=== PATIENT | female | born 1970 | race Caucasian/White ===

== ENCOUNTER 2023-04-01 15:58 | Emergency (ER) | payer OTHER, SELFPAY ==
[2023-04-01 15:59] VITALS: BP 143/87; PULSE 98; RESP 18; TEMP 36.1; O2SAT 100; BMI 23.4
--- NOTE | 2023-04-01 16:32 | EDS_ITS ---
HPI History of Present Illness Chief Complaint: Chest Pain Informant: patient Onset/Context/Timing Onset: Today Activity at onset: sudden Quality: Positive for Tightness and - (Squeezing) Current Severity: Mild Maximum Severity: Moderate Narrative Narrative: Patient presents secondary to chest pain. She states about 3 PM she was just finishing her workout when she developed a tight squeezing sensation around her chest and back with pain radiating down both arms. She states she was anxious and breathing rapidly but did not necessarily feel short of breath. Pain has improved but not completely subsided at this time. She did take ibuprofen prior to arrival. She states she was able to get through her workout without any difficulty. [facility] Medical History (Updated 04/01/23 @ 18:[address] Arleen Rodríguez MD) Anxiety Hypertension Hypothyroidism Allergy/AdvReac Type Severity Reaction Status Date / Time No Known Allergies Allergy Verified 04/01/23 16:00 Social History Smoking Status: Never smoker ROS ROS ED Constitutional Constitutional ED: Denies chills or fever(s) Eyes Eyes: Denies change in vision or discharge from eye(s) ENT ENT ED: Denies discharge from eye(s), rhinorrhea or sore throat Cardiovascular Cardiovascular: Reports chest pain; Denies palpitations Respiratory/Chest Respiratory/Chest: Denies cough or dyspnea Gastrointestinal Gastrointestinal: Denies abdominal pain, diarrhea, nausea or vomiting Genitourinary Genitourinary ED: Denies difficulty urinating or dysuria Musculoskeletal Musculoskeletal: Reports back pain and extremity pain Integumentary Denies Abrasions or rash Neurologic Neurologic: Denies headache(s) or weakness Psychiatric Psychiatric: Reports anxiety; Denies depression Allergic/Immunologic Allergic/Immunologic ED: Denies lip swelling or urticaria EXAM Physical Exam Const Vital Signs: 04/01/23 15:59 04/01/23 16:48 04/01/23 16:48 Temperature 97 F L Temperature Source Temporal Pulse Rate 98 82 Respiratory Rate 18 20 H Blood Pressure 143/87 H 123/77 H Blood Pressure Mean 105 92 Pulse Ox 100 96 Oxygen Delivery Method Room Air Room Air Room Air 04/01/23 17:14 Temperature Temperature Source Pulse Rate 81 Respiratory Rate 20 H Blood Pressure 136/75 H Blood Pressure Mean 95 Pulse Ox 96 Oxygen Delivery Method Room Air Positive well nourished and well developed General Appearance ED: well developed HEENT Reports normocephalic and head/scalp atraumatic Eyes PERRL and EOMs intact bilaterally Neck supple Chest Wall inspection of chest normal and palpation of chest normal Resp normal respiratory effort and clear to auscultation bilaterally Cardio regular rate and regular rhythm GI normal to inspection, nondistended, normoactive bowel sounds Palpation: soft Extremity normal to inspection Extremity Narrative: Equal and strong pulses in bilateral wrist and ankles. Neuro oriented x3 and no sensory deficits noted Sensorium / Orientation: alert Motor Exam: strength 5/5 throughout Psych mental status grossly normal Skin no rashes or lesions noted Heart Score History: Slightly/Non-Suspicious ECG: Normal Age: >45 - <65 years Risk Factors: 1 or 2 Risk Factors Troponin: </= Normal Limit Score: 2 MDM MDM MDM Narrative Medical decision making narrative: Patient placed on panel monitor. Aspirin ordered. EKG obtained to evaluate for cardiac arrhythmia/ischemia. Chest x-ray obtained to evaluate for acute lung pathology, cardiac size, or mediastinal abnormality. Labwork obtained to evaluate for leukocytosis, anemia, and electrolyte derangement. History & Record Review Discussion w/independent historian: Patient and Family Additional record(s) reviewed:: Prior labs Lab Data Attestation: I reviewed the patient's lab results. Labs: Laboratory Results - last 24 hr 04/01/23 16:45 WBC 337.3 H* RBC 3.21 L Hgb 10.4 L Hct 30.5 L MCV 95.0 MCH 32.4 H MCHC 34.1 RDW Std Deviation 62.5 H RDW Coeff of Yanira 18.3 H Plt Count 130 L MPV 11.5 Neut % (Auto) Not Reportable Absolute Neuts (auto) 182.1 H Absolute Lymphs (auto) 10.12 H Total Counted 100 Neutrophils % (Manual) 31 L Band Neutrophils % 23 H Lymphocytes % (Manual) 3 L Monocytes % (Manual) 4 Metamyelocytes % 7 H Myelocytes % 3 H Promyelocytes % 29 H Diff Path Review May foll D-Dimer Quant (PE/DVT) 0.56 H* Sodium 137 Potassium 3.8 Chloride 104 Carbon Dioxide 27.0 Anion Gap 6 BUN 16 Creatinine 1.13 H Estim Creat Clear Calc 53.00 Est GFR (MDRD) Af Amer 65 Est GFR (MDRD) Non-Af 54 L BUN/Creatinine Ratio 14.2 Glucose 133 H Calcium 9.2 Troponin I High Sens 7 Radiography Chest X-Ray - ED: 1 View, Read by ED Physician, Normal, Heart, Lungs and Mediastinum Diagnostic Testing: Clinical Impression(s) from Imaging Studies Chest X-Ray 04/01/23 16:45 IMPRESSION: No definite acute or significant abnormality seen. Electronically Signed: Dharmesh Higginbotham MD at 17:08 EDT , Chest CTA 04/01/23 17:16 IMPRESSION: Normal CTA chest examination, without a demonstrated pulmonary embolism or arterial dissection. There are findings consistent with COPD. There is no evidence of acute chest disease. Electronically Signed: Dharmesh Higginbotham MD at 18:17 EDT , EKG Initial EKG: Attestation: I personally reviewed and interpreted this EKG as follows: Interpretation: Sinus Rhythm (Sinus at 91 with no acute ischemia.) Treatment and Re-Evaluation :: EKG is sinus rhythm with no acute ischemia. Portable chest x-ray per my interpretation is unremarkable. CBC reveals abnormal white count at 337,000. She has absolute neutrophils of 182,000 and absolute lymphocytes of 10,000. Chemistry studies are unremarkable. Troponin is normal at 7 and D-dimer is slightly elevated at 0.56. Patient was sent for a CTA of the chest. This reveals no acute abnormalities and no evidence of pulmonary embolism. I did state down and speak with the patient as well as family at bedside. I honestly have concern the patient may have undiagnosed leukemia given her significantly elevated white count. Patient prefer to follow-up with [facility] as her primary care physician is through that system. I spoke with Dr. Valdez. His office will call the patient tomorrow for follow-up. Discharge Plan Triage Chief Complaint: Chest Pain ED Provider: Arleen Rodríguez Dx/Rx/DC Orders Clinical Impression: Leukocytosis, unspecified, Chest pain Instructions: What Is Leukemia?, ED Chest Pain, Uncertain Cause Primary Care Provider: Edith Mcdonnell Referrals: Prince Valdez MD [Med Staff - Active Staff] - As soon as possible Edith Mcdonnell MD [[facility]] - Activity Restrictions/Additional Instructions: As discussed, your white blood cell count (leukocytes) is extremely elevated and concerning for leukemia. I spoke with Dr. Valdez. His office will call you tomorrow morning for close follow-up. If you do not hear from their office his information has been included for you. You will need further testing before definitive diagnosis and treatment plan can be made. Disposition Disposition: Home, Self Care
--- NOTE | 2023-04-01 16:45 | RAD_ITS ---
STUDY: X-RAY CHEST REASON FOR EXAM: Female, 53 years old. chest pain TECHNIQUE: Single AP portable view of the chest. COMPARISON: None. FINDINGS: The lungs are clear and expanded. There is no demonstrated pleural abnormality. Normal size heart. Normal mediastinum and mony. Normal visualized pulmonary arteries. Normal visualized aortic arch and descending thoracic aorta. There are diffuse degenerative changes of the visualized thoracic spine. Normal visualized ribs, clavicles, and shoulders. There is no demonstrated abnormality of the visualized soft tissue structures of the upper abdomen. RAD/Chest 1 View (Portable) IMPRESSION: No definite acute or significant abnormality seen. Electronically Signed: Dharmesh Higginbotham MD at 17:08 EDT ,
[2023-04-01 16:48] VITALS: BP 123/77; PULSE 82; RESP 20; O2SAT 96
[2023-04-01] MEDS: 0.9% Normal Saline 1,000 ML 150 ML IV (16:58)
[2023-04-01] MEDS: Aspirin 81 MG TAB.CHEW 324 MG PO (16:59)
[2023-04-01 17:01] LABS: Hematocrit 30.5 % (37-47); Hemoglobin 10.4 g/dL (12.0-15.0); Mean Corp Hgb Conc 34.1 g/dL (32-36); Mean Corpuscular Hgb 32.4 pg (27.0-32.0); Mean Platelet Vol. 11.5 fl (6.2-12.0); POSITIVE COUNT YES; POSITIVE DIFFERENTIAL YES; POSITIVE MORPHOLOGY YES; Platelet Count 130 K/mm3 (150-450); RBC Distribution Width CV 18.3 % (11.6-14.6); RBC Distribution Width SD 62.5 fl (35.1-43.9); Red Blood Count 3.21 M/mm3 (4.2-5.4)
[2023-04-01 17:12] LABS: Anion Gap 6 (5-15); BUN 16 mg/dL (7-18); BUN/Creat Ratio 14.2 RATIO (10-20); Calcium,Total 9.2 mg/dL (8.5-10.1); Chloride 104 mmol/L (98-107); Creatinine, Serum 1.13 mg/dL (0.55-1.02); EST Glomerular Filtration Rate 54 mL/min (>60); Est Glom Filt Rate - Afr Amer 65 mL/min (>60); Glucose 133 mg/dL (74-106); Potassium 3.8 mmol/L (3.5-5.1); Sodium Level 137 mmol/L (136-145); Troponin-I HS (w/2H Reflex) 7 pg/mL (3.0-54.0)
[2023-04-01 17:13] LABS: D-Dimer Quantitative (DVT/PE) 0.56 FEU/ug/m (0.27-0.49)
[2023-04-01 17:14] VITALS: BP 136/75; PULSE 81; RESP 20; O2SAT 96
[2023-04-01 17:14] LABS: Differential Indicated MANUAL DIFF; White Blood Count 337.3 K/mm3 (4.4-11.0)
--- NOTE | 2023-04-01 17:16 | CT_ITS ---
STUDY: CTA CHEST REASON FOR EXAM: Female, 53 years old. CP, elevated d-dimer RADIATION DOSAGE (If Supplied By Facility): CTDIvol = ( 9.32 ) mGy, DLP = ( 298.04 ) mGycm TECHNIQUE: The examination was performed with the intravenous administration of IV 75mL [id number]-370. Post-processing of the angiographic images was performed, with multiplanar reformation and 3D reconstruction. Individualized dose optimization techniques were used for this CT. COMPARISON: None. FINDINGS: Normal enhancement of the main pulmonary artery and right and left pulmonary arteries. Normal enhancement of the bilateral peripheral pulmonary arteries. There is no demonstrated pulmonary embolism. Normal thoracic aorta and visualized great vessels. There is no demonstrated aortic dissection. Normal heart and pericardium. Normal mediastinum. Normal hilar regions. Normal visualized trachea and bronchi. The lungs are hyper expanded, with flattening of the hemidiaphragms. Normal pulmonary parenchyma. Normal pleura. Normal chest wall structures. Normal osseous structures. Normal visualized upper abdomen. CT/CTA Chest W/WO Contrast IMPRESSION: Normal CTA chest examination, without a demonstrated pulmonary embolism or arterial dissection. There are findings consistent with COPD. There is no evidence of acute chest disease. Electronically Signed: Dharmesh Higginbotham MD at 18:17 EDT ,
[2023-04-01 18:13] LABS: Lymphocyte 3 % (19-41); Metamyelocyte 7 % (0-1); Monocyte 4 % (0-10); Myelocyte 3 % (0-0); Neutrophil-Band 23 % (0-5); Neutrophil-Segmented 31 % (47-70); Promyelocyte 29 % (0-0); Total Cells Counted 100 (MANUAL DIFF)
[2023-04-01 18:15] LABS: Absolute Lymphocyte Count 10.12 X10^3/uL (0.83-4.51); Absolute Neutrophil Count 182.1 X10^3/uL (2.0-7.7)
[2023-04-01 18:50] LABS: Reflex Troponin-HS? (from REC) Y
[2023-04-01 19:04] VITALS: BP 139/87; PULSE 67; RESP 14; O2SAT 98
[2023-04-02 15:23] LABS: Pathologist Review Reviewed
== END 2023-04-01 19:05 | disposition home or self-care (01) ==
PROVIDERS: Emergency Provider Emergency Medicine; PCP Internal Medicine; Visit Provider Emergency Medicine
DX: R07.9 Chest pain, unspecified (principal); D72.829 Elevated white blood cell count, unspecified; I10 Essential (primary) hypertension
CPT/HCPCS: 71045; 71275; 80048; 84484; 85025; 85379; 93005; 96360; 96361; 99283; Q9967; A4216

== ENCOUNTER 2024-08-26 02:53 | Emergency (ER) | payer OTHER, SELFPAY ==
[2024-08-26 02:54] VITALS: BP 144/95; PULSE 68; RESP 18; TEMP 36.7; O2SAT 100; BMI 29.0
--- NOTE | 2024-08-26 03:09 | CT_ITS ---
INDICATION: Pain woke up at 2am with left sided arm pain and tingling in wrist and fingers, hx CML and on oral chemo EXAMINATION: CT CERVICAL SPINE - CT Spine Cervical W/O Contrast Injection TECHNIQUE: Helically acquired images were obtained of the cervical spine. 2D reformatted images were reviewed. The protocol utilizes one or more of the following dose reduction techniques: automated exposure control, adjustment of mA and/or kV according to patient size,and/or use of iterative reconstruction technique. IV Contrast dosage and agent: None. RADIATION DOSAGE (If Supplied By Facility): CTDIvol = ( 21.88 ) mGy, DLP = ( 430.32 ) mGycm COMPARISON: No relevant prior comparison study available FINDINGS: ALIGNMENT: No subluxation. Straightening of the normal curvature. MINERALIZATION: Normal. VERTEBRAL BODIES: No fracture or acute abnormality. DISC SPACES: Disc space narrowing with osteophytes most pronounced at C3-4, and C5-C7. C6-7: Broad-based disc/osteophyte complex. Mild encroachment on the left neural foramen. POSTERIOR ELEMENTS: Mild facet arthropathy at multiple levels. SPINAL CANAL: Maintained. PARASPINAL SOFT TISSUES: Unremarkable. OTHER: None. CT/Spine Cervical without Contras IMPRESSION: No evidence of fracture or subluxation. Straightening of the normal curve may be due to positioning or muscle spasm. Degenerative changes with mild left neural foraminal encroachment at C6-7. MRI may be helpful for further evaluation. Electronically Signed: Erika Lemus MD at 4:17 EST ,
--- NOTE | 2024-08-26 03:11 | EX.ED.DYSGE1 ---
HPI History of Present Illness Chief Complaint: Other, Pain/Inj Narrative Narrative: 54-year-old female presents with her because of left arm pain that she has had since yesterday morning at around 5 AM. She describes soreness throughout the day. She is right-hand dominant. No fevers or chills. She states that she went to bed last evening, and awoke this morning around 2 AM, approximately an hour ago with pain in her left shoulder. It goes down her left arm. She states its pain in her left side. She is not sure if her leg feels weak as well. She has past medical history of CML. She takes oral chemotherapy. She states that the pain radiates from her neck down her left arm and into her fingers. She cannot really describe the feeling but states that its uncomfortable. [facility] Medical History CML (chronic myelocytic leukemia) Anxiety Hypothyroidism Hypertension Home Medications ?Medication ?Instructions ?Recorded ?Last Taken ?Type amlodipine 2.5 mg tablet 2.5 mg PO DAILY 08/26/24 Unknown History azelaic acid 15 % topical gel 1 applic topical BID PRN rosacia 08/26/24 Unknown History bupropion HCl 300 mg 24 hr tablet, 300 mg PO DAILY 08/26/24 Unknown History extended release cholecalciferol (vitamin D3) 50 50 mcg PO DAILY 08/26/24 Unknown History mcg (2,000 unit) capsule (Vitamin D3) dasatinib 100 mg tablet 100 mg PO DAILY 08/26/24 Unknown History levothyroxine 100 mcg tablet 100 mcg PO DAILY 08/26/24 Unknown History (Synthroid) lisinopril 20 1 tab PO DAILY 08/26/24 Unknown History mg-hydrochlorothiazide 12.5 mg tablet Allergy/AdvReac Type Severity Reaction Status Date / Time No Known Allergies Allergy Verified 08/26/24 02:54 Surgical History Hx of section Hx of hernia repair Hx of cholecystectomy Social History Smoking Status: Never smoker ROS ROS ED ROS Narrative Constitutional: No fever, no chills. HEENT: Mild neck pain. Pain radiating into left shoulder. Cardiovascular: No chest pain. No palpitations. No pedal edema. Respiratory: No cough, no shortness of breath. Abdominal: No abdominal pain. No nausea. No vomiting. Genitourinary: No dysuria. No hematuria. Musculoskeletal: Left arm pain. Neurologic: No headaches. No dizziness. No lightheadedness. Paresthesias of left arm. EXAM Physical Exam Narrative Exam Narrative: Afebrile. Vital signs noted. HEENT: Normocephalic. Atraumatic. PERRL, EOMI. Neck soft and supple. No point tenderness or step off. No trapezial pain. Cardiovascular: Regular rate and rhythm. No murmurs, rubs, or gallops appreciated. Respiratory: No tachypnea. Lungs clear to auscultation bilaterally. Gastrointestinal: Abdomen soft, nontender, with normoactive bowel sounds. No rebound or guarding. Neurological: Awake. Alert. Nonfocal, nonlateralizing. Able to raise arms above head without difficulty. Difficult to elicit bilateral patellar reflexes. Skin: No rash. Normal color. No pallor. Musculoskeletal: No pedal edema. Full range of motion extremities. Palpable radial pulse, left. Able to raise bilateral legs off bed. No crepitance of shoulder or arm, or chest wall. No appreciable weakness bilateral lower extremities. Const Vital Signs: 08/26/24 02:54 08/26/24 03:00 08/26/24 04:26 Temperature 98.0 F 98.0 F Temperature Source Oral Pulse Rate 68 64 Respiratory Rate 18 18 Respiratory Effort Normal Non-Labored Respiratory Pattern Normal Blood Pressure 144/95 H 120/75 Blood Pressure Mean 111 90 Pulse Ox 100 97 Oxygen Delivery Method Room Air MDM MDM MDM Narrative Medical decision making narrative: Differential diagnosis includes but not limited to cervical radiculopathy versus musculoskeletal pain versus ACS versus stroke. I have very low suspicion for stroke because her neurological examination is nonfocal and nonlateralizing and essentially her stroke scale is 0. I favor cervical radiculopathy. She was given morphine and Toradol for pain as she took Tylenol without relief. EKG was obtained and interpreted by myself independently as normal sinus rhythm at 69 bpm without ectopy or acute ST changes. No STEMI. I reviewed her laboratory work and she has normal white count of 10.2, hemoglobin normal 12.6, platelet count low at 98. When compared to prior laboratories, she has chronic thrombocytopenia. I do feel that this is related to her chemotherapy as well, but I do not feel that she requires platelet transfusion. Review of her electrolyte panel shows BUN of 19 and creatinine 0.74 with glucose 98 and normal anion gap of 6. LFTs are grossly unremarkable. High-sensitivity troponin is 8. She has been having discomfort all day yesterday so I feel this is a 6-hour troponin that she does not require serial enzymes. Chest x-ray 1 view interpreted by myself independently shows no evidence of an acute process. I reviewed the radiology report which confirms my independent interpretation. I had ordered Toradol and morphine for her but per RN, she declined the morphine. Repeat examination at approximately 3:55 AM she was resting comfortably and she states that her arm pain is improving. I reviewed the radiology report of the CT of the cervical spine. There is straightening of the cervical spine consistent with muscle spasm. Additionally, there are degenerative changes noted with left foraminal encroachment at C6-C7. There is no evidence of acute fracture or subluxation. I do think that she probably does have more of a cervical radicular pain. At this point in time, her does state that he is familiar with radicular pain and has he had it himself. I feel she can be discharged to follow-up with her primary care provider. She was told she may need outpatient imaging such as MRI. Additionally, I offered to write her for narcotic pain medication but she declined. She states she will take [id number] medications as needed. Return instructions were reviewed. Disposition is discharged home in stable condition. History & Record Review Discussion w/independent historian: Patient Additional record(s) reviewed:: Prior labs Lab Data Attestation: I reviewed the patient's lab results. Labs: Laboratory Results - last 24 hr 08/26/24 03:16 WBC 10.2 RBC 3.83 L Hgb 12.6 Hct 36.5 L MCV 95.3 MCH 32.9 H MCHC 34.5 RDW Std Deviation 47.0 H RDW Coeff of Yanira 13.5 Plt Count 98 L MPV 10.1 Immature Gran % (Auto) 0.300 Neut % (Auto) 55.9 Lymph % (Auto) 31.2 [place] % (Auto) 8.6 Eos % (Auto) 3.1 Baso % (Auto) 0.9 Absolute Neuts (auto) 5.7 Absolute Lymphs (auto) 3.19 Nucleated RBC % 0 Differential Comment SCANNED Platelet Estimate SLT DEC Plt Morphology Comment LARGE Sodium 137 Potassium 3.7 Chloride 107 Carbon Dioxide 24.0 Anion Gap 6 BUN 19 H Creatinine 0.74 Estim Creat Clear Calc 92.38 Est GFR (MDRD) Af Amer 106 Est GFR (MDRD) Non-Af 88 BUN/Creatinine Ratio 25.7 H Glucose 98 Calcium 8.7 Total Bilirubin 0.30 AST 18 ALT 27 Alkaline Phosphatase 54 Troponin I High Sens 8 Total Protein 6.3 L Albumin 3.6 Globulin 2.7 Albumin/Globulin Ratio 1.3 Radiography Diagnostic Testing: Clinical Impression(s) from Imaging Studies Cervical Spine CT 08/26/24 03:09 IMPRESSION: No evidence of fracture or subluxation. Straightening of the normal curve may be due to positioning or muscle spasm. Degenerative changes with mild left neural foraminal encroachment at C6-7. MRI may be helpful for further evaluation. Electronically Signed: Erika Lemus MD at 4:17 EST Reading Location ID and State: [facility] / [place] Tel , Service support , Chest X-Ray 08/26/24 03:30 IMPRESSION: No evidence of active intrathoracic disease. Electronically Signed: Erika Lemus MD at 4:09 EST , Discharge Plan Triage Chief Complaint: Other, Pain/Inj ED Provider: Steve Welch Dx/Rx/DC Orders Clinical Impression: Left arm pain, Cervical radicular pain Instructions: ED Myalgias, ED Pain, Acute, Uncertain Cause, ED Radiculopathy, Cervical Prescriptions: No Action dasatinib 100 mg tablet 100 mg PO DAILY azelaic acid 15 % gel 1 applic topical BID PRN (Reason: rosacia) bupropion HCl 300 mg tablet extended release 24 hr 300 mg PO DAILY lisinopril-hydrochlorothiazide 20-12.5 mg tablet 1 tab PO DAILY amlodipine 2.5 mg tablet 2.5 mg PO DAILY levothyroxine [Synthroid] 100 mcg tablet 100 mcg PO DAILY cholecalciferol (vitamin D3) [Vitamin D3] 50 mcg (2,000 unit) capsule 50 mcg PO DAILY Primary Care Provider: Edith Mcdonnell Referrals: Edith Mcdonnell MD [Primary Care Provider] - 3-5 Days if not improving Activity Restrictions/Additional Instructions: Follow-up with your primary care provider. You may need outpatient imaging and/or physical therapy. Return with new or worsening symptoms. Take [id number] medication such as Tylenol and/or ibuprofen as directed. Print Language: Welsh Disposition Disposition: Home, Self Care Discharge Date/Time: 08/26/24 04:30
[2024-08-26] MEDS: Ketorolac 15 MG/ML Vial IV (03:19)
[2024-08-26 03:24] LABS: Absolute Lymphocyte Count 3.19 X10^3/uL (0.83-4.51); Absolute Neutrophil Count 5.7 X10^3/uL (2.0-7.7); Basophil# 0.09 X10^3/uL; Basophil% 0.9 % (0-1); Eosinophil# 0.32 X10^3/uL; Eosinophils% 3.1 % (0-5); Hematocrit 36.5 % (37-47); Hemoglobin 12.6 g/dL (12.0-15.0); Lymphocyte # 3.19 X10^3/ul (0.83-4.51); Lymphocyte % 31.2 % (19-41); Mean Corp Hgb Conc 34.5 g/dL (32-36); Mean Corpuscular Hgb 32.9 pg (27.0-32.0); Mean Corpuscular Volume 95.3 fL (81-99); Mean Platelet Vol. 10.1 fl (6.2-12.0); Monocyte# 0.88 X10^3/uL; Monocyte% 8.6 % (0-10); NRBC Flagged by Analyzer 0 % (0-5); Neutrophil # 5.71 X10^3/uL (2.7-7.7); Neutrophil % 55.9 % (47-70); POSITIVE COUNT YES; Platelet Count 98 K/mm3 (150-450); RBC Distribution Width CV 13.5 % (11.6-14.6); Red Blood Count 3.83 M/mm3 (4.2-5.4); White Blood Count 10.2 K/mm3 (4.4-11.0)
[2024-08-26 03:25] LABS: Differential Indicated SCAN CRITERIA MET
--- NOTE | 2024-08-26 03:30 | RAD_ITS ---
INDICATION: Pain left side shoulder and chest pain EXAMINATION/TECHNIQUE: X-RAY - XR Chest 1 View AP portable. 3:28 AM COMPARISON: Prior study dated: 04/01/2023 FINDINGS: LINES/DEVICES: None. LUNGS: No consolidation. No pneumothorax. MEDIASTINUM: Unremarkable. CARDIAC SILHOUETTE: Not enlarged. BONES AND SOFT TISSUES: No acute abnormalities. RAD/Chest 1 View (Portable) IMPRESSION: No evidence of active intrathoracic disease. Electronically Signed: Erika Lemus MD at 4:09 EST ,
[2024-08-26 03:45] LABS: ALB/GLOB Ratio 1.3 RATIO (0.9-2.4); AST(SGOT) 18 U/L (15-37); Alanine Aminotransfer ALT/SGPT 27 U/L (13-56); Albumin, Serum 3.6 g/dL (3.2-5.0); Alkaline Phosphatase 54 U/L (45-117); Anion Gap 6 (5-15); BUN 19 mg/dL (7-18); BUN/Creat Ratio 25.7 RATIO (10-20); Calcium,Total 8.7 mg/dL (8.5-10.1); Chloride 107 mmol/L (98-107); Creatinine, Serum 0.74 mg/dL (0.55-1.02); EST Glomerular Filtration Rate 88 mL/min (>60); Est Glom Filt Rate - Afr Amer 106 mL/min (>60); Estimated Creatinine Clearance 92.38 ml/min; Globulin 2.7 g/dL (2.2-4.2); Glucose 98 mg/dL (74-106); Potassium 3.7 mmol/L (3.5-5.1); Protein, Total 6.3 g/dL (6.4-8.2); Sodium Level 137 mmol/L (136-145); Troponin-I HS 8 pg/mL (3.0-54.0)
[2024-08-26 04:24] LABS: Differential Comment SCANNED; Platelet Estimate SLT DEC (ADEQ)
[2024-08-26 04:25] LABS: Platelet Morphology LARGE
[2024-08-26 04:26] VITALS: BP 120/75; PULSE 64; RESP 18; TEMP 36.7; O2SAT 97
== END 2024-08-26 04:30 | disposition home or self-care (01) ==
PROVIDERS: Emergency Provider Emergency Medicine; PCP Internal Medicine; Visit Provider Emergency Medicine
DX: M54.12 Radiculopathy, cervical region (principal); C92.10 Chronic myeloid leukemia, BCR/ABL-positive, not having achieved remission; I10 Essential (primary) hypertension; Z79.899 Other long term (current) drug therapy

== ENCOUNTER 2025-01-22 03:29 | Inpatient (IN) | payer OTHER, SELFPAY ==
[2025-01-22] VITALS (22 sets, daily range): BP systolic 100–144; BP diastolic 45–83; PULSE 60–104; RESP 11–22; TEMP 35.8–36.6; O2SAT 95–100; BMI 29.9; BMI 29.2
--- NOTE | 2025-01-22 03:34 | EX.ED.DYSGE1 ---
HPI History of Present Illness Chief Complaint: Allergic Reaction Informant: patient and spouse/S.O. Narrative Narrative: 54-year-old female presents with tongue swelling that started may be 7-10 hours ago but was mild, she was eating an orange at the time when she first noticed something and thought maybe she had bit her tongue in the acid from the orange was irritating it but as her tongue started to swell more, she started having some submental/throat swelling as well, no pain, no odynophagia, no voice changes. She takes lisinopril and has been on it for several years for blood pressure. She states she just got it refilled, and today just prior to all of this starting she took the first pill from the new refills she is not sure if it is a different looking pill or not, but she usually takes that around 5 PM every day and after taking that is when all of this started. The only other medication change she has had lately is her Dasatinib from 100 mg daily to 140 mg daily for her CML. PFSH [facility] Medical History Thrombocytopenia CML (chronic myelocytic leukemia) Anxiety Hypothyroidism Hypertension Home Medications ?Medication ?Instructions ?Recorded ?Last Taken ?Type amlodipine 2.5 mg tablet 2.5 mg PO DAILY 08/26/24 Unknown History azelaic acid 15 % topical gel 1 applic topical BID PRN rosacia 08/26/24 Unknown History bupropion HCl 300 mg 24 hr tablet, 300 mg PO DAILY 08/26/24 Unknown History extended release cholecalciferol (vitamin D3) 50 50 mcg PO DAILY 08/26/24 Unknown History mcg (2,000 unit) capsule (Vitamin D3) levothyroxine 100 mcg tablet 100 mcg PO DAILY 08/26/24 Unknown History (Synthroid) lisinopril 20 1 tab PO DAILY 08/26/24 Unknown History mg-hydrochlorothiazide 12.5 mg tablet dasatinib 140 mg tablet 140 mg PO DAILY 01/22/25 Unknown History Allergy/AdvReac Type Severity Reaction Status Date / Time lisinopril Allergy Severe Angioedema Verified 01/22/25 05:19 Surgical History Hx of section Hx of hernia repair Hx of cholecystectomy Social History (Updated 01/22/25 @ 05:[address] Jillian Shafer DO) household members: spouse housing: house current occupational status: employed Smoking Status: Never smoker substance use type: does not use ROS ROS ED Constitutional Constitutional ED: Denies chills or fever(s) Eyes Eyes: Denies change in vision or diplopia ENT ENT ED: Reports throat swelling and tongue swelling; Denies hoarseness, rhinorrhea or sore throat Cardiovascular Cardiovascular: Denies chest pain or palpitations Respiratory/Chest Respiratory/Chest: Denies cough or dyspnea Gastrointestinal Gastrointestinal: Denies abdominal pain, diarrhea, nausea or vomiting Genitourinary Genitourinary ED: Denies dysuria or hematuria Musculoskeletal Musculoskeletal: Denies back pain or neck pain Integumentary Denies abscess or rash Neurologic Neurologic: Denies headache(s), paresthesias or weakness Psychiatric Psychiatric: Reports anxiety; Denies suicidal thoughts EXAM Physical Exam Const Vital Signs: 01/22/25 03:30 01/22/25 04:32 Temperature 97.9 F Temperature Source Oral Pulse Rate 70 63 Respiratory Rate 12 11 L Blood Pressure 144/83 H 115/63 Blood Pressure Mean 103 80 Pulse Ox 100 97 Oxygen Delivery Method Room Air Positive well nourished and well developed General Appearance ED: well developed and NAD HEENT Reports moist mucous membranes HEENT Narrative: Mild diffuse tongue edema. Mild sublingual edema without significant tongue elevation without the patient lifting it. No significant external submental edema. No stridor. No hot potato voice. Able to lie back without breathing difficulty or stridor. normocephalic and atraumatic Eyes PERRL and EOMs intact bilaterally Neck full ROM and supple Resp normal respiratory effort and clear to auscultation bilaterally Cardio regular rate, regular rhythm and no murmurs GI non-tender and non-distended Auscultation: normoactive bowel sounds Palpation: soft Back/Spine no CVA tenderness General Back: other FROM Extremity normal to inspection General Extremety ED: Negative for edema, pulses abnormal or tenderness General Extremity: Negative for edema or pulses abnormal Neuro oriented x3, CN's II-XII intact bilaterally and no sensory deficits noted Sensorium / Orientation: awake and alert Motor Exam: strength 5/5 throughout Skin no rashes or lesions noted and no wounds MDM MDM MDM Narrative Medical decision making narrative: Patient was given IV Pepcid, Solu-Medrol, diphenhydramine, and IM epinephrine 0.3 mg. She tolerated all of this well with no adverse events. On reexamination, her tongue is similarly edematous as is the sublingual tissues but she is tolerating it well right now, I do not think she needs intubated, but given the involvement of the sublingual tissues and submental symptoms, I recommend admission for observation. I think this is her SRAVANI inhibitor until proven otherwise. Lab Data Attestation: I reviewed the patient's lab results. Labs: Laboratory Results - last 24 hr 01/22/25 03:37 WBC 11.2 H RBC 4.24 Hgb 14.0 Hct 40.0 MCV 94.3 MCH 33.0 H MCHC 35.0 RDW Std Deviation 45.6 H RDW Coeff of Yanira 13.4 Plt Count 98 L MPV 9.7 Immature Gran % (Auto) 0.400 Neut % (Auto) 52.6 Lymph % (Auto) 32.4 [place] % (Auto) 10.6 H Eos % (Auto) 2.8 Baso % (Auto) 1.2 H Absolute Neuts (auto) 5.9 Absolute Lymphs (auto) 3.62 Nucleated RBC % 0 Sodium 138 Potassium 3.8 Chloride 101 Carbon Dioxide 25.1 Anion Gap 12 BUN 21 H Creatinine 0.93 Estim Creat Clear Calc 74.62 Est GFR (MDRD) Non-Af 74 BUN/Creatinine Ratio 22.5 H Glucose 90 Calcium 9.8 Management Discussion w/another healthcare provider: Hospitalist Critical Care Time Critical Care Time: Yes Critical care time (excluding procedures): 30-74 minutes (36 min), Including time spent:, Discussing w/Patient &/or Family/Parts Identification Technician, Discussing w/Consultants, Arranging Admission or Transfer and Performing Direct Patient Care at Bedside Discharge Plan Dx/Rx/DC Orders Clinical Impression: Angioedema Disposition Disposition: Acute Care [facility]
[2025-01-22] MEDS: DiphenhydrAMINE 50 MG/ML Syringe 25 MG IV ×5 (03:40→22:25)
[2025-01-22] MEDS: MethylPREDNISolone 125 MG/2 ML Vial IV (03:42)
[2025-01-22] MEDS: Epi Pen (EQUIV) 0.3 MG Syringe IM (03:44)
[2025-01-22 03:47] LABS: Absolute Lymphocyte Count 3.62 X10^3/uL (0.83-4.51); Absolute Neutrophil Count 5.9 X10^3/uL (2.0-7.7); Basophil# 0.13 X10^3/uL; Basophil% 1.2 % (0-1); Eosinophil# 0.31 X10^3/uL; Eosinophils% 2.8 % (0-5); Lymphocyte # 3.62 X10^3/ul (0.83-4.51); Lymphocyte % 32.4 % (19-41); Mean Corpuscular Volume 94.3 fL (81-99); Mean Platelet Vol. 9.7 fl (6.2-12.0); Monocyte# 1.19 X10^3/uL; Monocyte% 10.6 % (0-10); NRBC Flagged by Analyzer 0 % (0-5); Neutrophil # 5.89 X10^3/uL (2.7-7.7); Neutrophil % 52.6 % (47-70); POSITIVE COUNT YES; Platelet Count 98 K/mm3 (150-450); RBC Distribution Width CV 13.4 % (11.6-14.6); RBC Distribution Width SD 45.6 fl (35.1-43.9); Red Blood Count 4.24 M/mm3 (4.2-5.4); White Blood Count 11.2 K/mm3 (4.4-11.0)
--- OUTSIDE RECORDS SUMMARY | 2025-01-22 03:56 | XMS RPT_ITS | CCD ---
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, Judith Unavailable Sandro Brower PA-Cadette Unavailable Steve Welch Attending Unavailable Ganta, Eden Primary Care Unavailable Deborah PALMA Marisela L Unavailable [phone] Leonarda PALMA Dora Unavailable GANTA, EDEN Primary Care Unavailable PRINCE URIBE Attending Unavailable GANTA, EDEN Primary Care Unavailable GANTA, EDEN Referring Unavailable GANTA, EDEN Attending Unavailable GANTA, EDEN Primary Care Unavailable PRINCE URIBE Referring Unavailable GANTA, EDEN Primary Care Unavailable MARGA CROWE Referring Unavailable GANTA, EDEN Primary Care Unavailable GANTA, EDEN Referring Unavailable GANTA, EDEN Primary Care Unavailable GANTA, EDEN Referring Unavailable GANTA, EDEN Primary Care Unavailable PRINCE URIBE Referring Unavailable GANTA, EDEN Primary Care Unavailable GANTA, EDEN Referring Unavailable NEGRO DAWSON Attending Unavailable GANTA, EDEN Primary Care Unavailable GANTA, EDEN Referring Unavailable NEGRO DAWSON Attending Unavailable GANTA, EDEN Primary Care Unavailable JUDITH HOWELL Referring Unavailable GANTA, EDEN Primary Care Unavailable ABRAMOVICH, PRINCE Referring Unavailable ABRAMOVICH, PRINCE Attending Unavailable GANTA, EDEN Primary Care Unavailable MARGA CROWE Referring Unavailable MARGA CROWE Attending Unavailable GANTA, EDEN Primary Care Unavailable ABRAMOVICH, PRINCE Referring Unavailable GANTA, EDEN Primary Care Unavailable ABRAMOVICH, PRINCE Attending Unavailable GANTA, EDEN Primary Care Unavailable GANTA, EDEN Primary Care Unavailable ABRAMOVICH, PRINCE Referring Unavailable GANTA, EDEN Primary Care Unavailable ABRAMOVICH, PRINCE Attending Unavailable GANTA, EDEN Primary Care Unavailable JUDITH HOWELL Attending Unavailable GANTA, EDEN Primary Care Unavailable GANTA, EDEN Referring Unavailable MARGA CROWE Attending Unavailable GANTA, EDEN Primary Care Unavailable GANTA, EDEN Primary Care Unavailable ABRAMOVICH, PRINCE Referring Unavailable GANTA, EDEN Primary Care Unavailable GANTA, EDEN Attending Unavailable GANTA, EDEN Primary Care Unavailable GANTA, EDEN Referring Unavailable GANTA, EDEN Primary Care Unavailable ABRAMOVICH, PRINCE Referring Unavailable GANTA, EDEN Primary Care Unavailable ABRAMOVICH, PRINCE Referring Unavailable GANTA, EDEN Primary Care Unavailable ABRAMOVICH, PRINCE Referring Unavailable Medications Current Medications Medication Drug Class(es) Dates Sig (Normalized) Sig (Original) acetaminophen 500 mg oral tablet (20 sources) take 2 tablets by mouth every eight hours as needed acetaminophen (TYLENOL EXTRA STRENGTH) 500 mg tablet Take 1,000 mg by mouth every 8 hours as needed. Active Comment on above: Take 1,000 mg by carter th every 8 hours as needed. allopurinol 100 mg oral tablet (7 sources) Xanthine Oxidase Inhibitor Start: 04-07-2023 End: 04-17-2023 take 1 tablet by mouth once daily allopurinol (ZYLOPRIM) 100 mg tablet Take 1 tablet by mouth once daily for 10 days. Start with first dose of dasatinib 10 tablet 0 04/07/2023 04/17/2023 Active Comment on above: Take 1 tablet by carter th once daily for 10 days. Start with first dose of dasatinib amLODIPine 2.5 mg oral tablet (20 sources) Dihydropyridine Calcium Channel Cornel Start: 09-18-2023 End: 09-27-2024 take 1 tablet by mouth once daily amLODIPine (NORVASC) 2.5 mg tablet Take 1 tablet by mouth once daily. 90 tablet 3 09/27/2024 Active Start: 12-09-2021 End: 06-17-2024 take 1 tablet by mouth in the morning amLODIPine (Norvasc) 5 MG tablet Take 5 mg by mouth in the morning. 09/10/2022 06/17/2024 Discontinued (Therapy completed) Start: 12-05-2021 End: 12-05-2021 take 1 tablet by mouth once daily amLODIPine (NORVASC) 5 mg tablet TAKE 1 TABLET BY MOUTH EVERY DAY 90 tablet 0 12/05/2021 12/05/2021 Discontinued Start: 09-04-2021 take 1 tablet by carter th once daily amLODIPine (NORVASC) 5 mg tablet Take 1 tablet by mouth once daily. 90 tablet 0 09/04/2021 Active Comment on above: Take 1 tablet by carter th once daily. TAKE 1 TABLET BY CARTER TH EVERY DAY azelaic acid 0.15 mg/mg topical gel (20 sources) Start: 05-09-2024 Azelaic Acid (FINACEA) 15 % gel Apply 1 application to affected area two times a day. 50 g 3 05/09/2024 Active Start: 07-17-2020 End: 05-06-2024 Azelaic Acid (FINACEA) 15 % gel Apply 1 application to affected area two times a day. 50 g 3 07/15/2023 Active Comment on above: Apply 1 application to affected area twice daily. Apply 1 application to affected area two times a day. 24 hr buPROPion hydrochloride 300 mg extended release oral tablet (20 sources) Aminoketone Start: take 1 tablet by mouth once daily buPROPion XL (WELLBUTRIN XL) 300 mg 24 hr tablet Take 1 tablet by mouth once daily. 90 tablet 3 09/05/2024 Active Start: 08-17-2023 End: 09-03-2024 take 1 tablet by mouth once daily buPROPion XL (WELLBUTRIN XL) 300 mg 24 hr tablet Take 1 tablet by mouth once daily. 90 tablet 3 08/17/2023 09/03/2024 Discontinued Start: 09-10-2022 take 1 tablet by carter th every twenty-four hours in the morning buPROPion XL (Wellbutrin XL) 300 MG 24 hr tablet Take 300 mg by mouth in the morning. 09/10/2022 Active Start: 05-07-2021 End: 04-24-2023 take 1 tablet by mouth once daily buPROPion XL (WELLBUTRIN XL) 300 mg 24 hr tablet Take 1 tablet by mouth once daily. 90 tablet 1 04/24/2023 Active Comment on above: Take 1 tablet by carter th once daily. TAKE 1 TABLET BY CARTER TH EVERY DAY cholecalciferol 0.05 mg oral capsule (20 sources) Vitamin D Start: 6 take 1 tablet by mouth once daily Cholecalciferol, Vitamin D3, 2,000 unit cap Take 1 tablet by mouth once daily. 0 11/16/2015 Active Comment on above: Take 1 tablet by carter th once daily. dasatinib 140 mg oral tablet (20 sources) Kinase Inhibitor Start: 5 take 1 tablet by mouth once daily dasatinib (SPRYCEL) 140 mg tablet Take 1 tablet (140 mg) by mouth once daily. 30 tablet 11 12/12/2024 Active Start: 10-27-2023 End: 12-12-2024 take 1 tablet by mouth once daily dasatinib (SPRYCEL) 100 mg tablet TAKE 1 TABLET BY MOUTH 1 TIME A DAY 30 tablet 5 10/28/2024 12/12/2024 Discontinued Start: 04-07-2023 End: 04-07-2023 take 1 tablet by mouth once daily dasatinib (SPRYCEL) 100 mg tablet Take 1 tablet (100 mg) by mouth once daily. 30 tablet 11 04/07/2023 04/07/2023 Discontinued (Erroneous entry) Comment on above: Take 1 tablet (100 m g) by mouth once daily. hydroCHLOROthiazide 12.5 mg / lisinopril 20 mg oral tablet (20 sources) Thiazide Diuretic, Angiotensin Converting Enzyme Inhibitor Start: End: 5 take 1 tablet by mouth once daily lisinopril-hyd roCHLOROthiazi de (ZESTORETIC) 20-12.5 mg per tablet Take 1 tablet by mouth once daily. 90 tablet 3 10/14/2024 Active Start: 09-10-2022 take 1 tablet by carter th in the morning lisinopril-hydroCHLOROthiazide 20-12.5 M G tablet Take 1 tablet by mouth in the morning. 09/10/2022 Active Start: 10-01-2021 End: 09-10-2022 take 1 tablet by mouth once daily lisinopril-hydroCHLOROthiazide (PRINZIDE,ZESTORETIC) 20-12.5 mg per tablet Take 1 tablet by mouth once daily. 90 tablet 3 09/10/2022 Active Comment on above: Take 1 tablet by carter th once daily. levothyroxine sodium 0.1 mg oral tablet (20 sources) l-Thyroxine Start: 01-01-20 End: 06-27-20 take 1 tablet by mouth once daily SYNTHROID 100 mcg tablet Take 1 tablet by mouth once daily. Take on empty stomach 90 tablet 3 06/27/2024 Active Comment on above: Take 1 tablet by carter th once daily. Take on empty stomach progesterone 200 mg oral capsule (13 sources) Progesterone Start: 09-05-19 End: 10-06-19 progesterone micronized (PROMETRIUM) 200 mg capsule Take 1 capsule by mouth daily at bedtime for 7 days. every 2-3 months to induce a period 7 capsule 4 09/29/2024 Active Completed/Discontinued Medications Medication Drug Class(es) Dates Sig (Normalized) Sig (Original) Ethinyl Estradiol / Ferrous fumarate / Norethindrone (17 sources) Estrogen Start: 03-19-2023 End: 06-17-2024 take 0.05-1 tablets by mouth once daily 08/29 1-20 MG-MCG tablet Take by mouth Daily. 03/19/2023 06/17/2024 Discontinued (Therapy completed) Start: 03-19-2023 take 0.05-1 tablets by mouth once daily 08/29 1-20 MG-MCG tablet Take by mouth Daily. 03/19/2023 Active Start: 03-19-2023 End: 05-12-202308/29, 28, 1 mg-20 m cg (21)/75 mg (7) per tablet Take by mouth once daily. 0 03/19/2023 05/12/2023 Discontinued Start: 03-19-202308/29, 28, 1 mg-20 mcg (21)/75 mg (7) per tablet Take by mouth once daily. 0 03/19/2023 Active Comment on above: Take by mouth once d aily. imatinib 400 mg oral tablet (20 sources) Kinase Inhibitor Start: 04-08-20 End: 06-17-20 24 take 1 tablet by mouth once daily imatinib (Gleevec) 400 MG chemo tablet Take 400 mg by mouth Daily. 04/09/2023 06/17/2024 Discontinued (Therapy completed) Comment on above: Take 1 tablet (400 m g) by mouth once daily. polyethylene glycol 3350 728051 mg / potassium chloride 2970 mg / sodium bicarbonate 6740 mg / sodium chloride 5860 mg / sodium sulfate 91624 mg powder for oral solution (1 source) Osmotic Laxative Start: 09-26-19 End: 09-26-19 peg 3350-Electrolytes (GOLYTELY) 236-22.74-6.74 -5.86 gram suspension Take 4,000 mL by mouth one time only for 1 dose. 1 Each 0 09/26/2022 09/26/2022 Comment on above: Take 4,000 mL by carter th one time only for 1 dose. potassium chloride 10 meq extended release oral tablet (7 sources) Start: 12-17-19 End: 04-20-20 24 take 1 tablet by mouth once daily at breakfast potassium chloride (K-TAB) 10 mEq tablet Take 1 tablet by mouth daily with breakfast. 30 tablet 5 12/17/2023 04/20/2024 Discontinued vitamin b12 1 mg oral tablet (20 sources) Vitamin B12 Start: 11-16-19 16 End: 04-20-20 24 take 1 tablet by mouth once daily cyanocobalamin (VITAMIN B-12) 1,000 mcg tab Take 1 tablet by mouth once daily. 0 11/16/2015 04/20/2024 Discontinued Comment on above: Take 1 tablet by carter th once daily. Problems Active Problems Problem Classification Problem Date Documented Date Episodic/Chronic Anxiety disorders (4 sources) Mixed anxiety and depressive disorder; Translations: [Anxiety disorder, unspecified] Chronic Diseases of white blood cells (4 sources) Leukocytosis; Translations: [Elevated white blood cell count, unspecified] 04-01-2023 Chronic Disorders of lipid metabolism (1 source) Hypertriglyceridemia; Translations: [Pure hyperglyceridemia] 04-30-2023 Chronic Endometriosis (1 source) Uterine adenomyosis; Translations: [Adenomyosis of the uterus] 10-02-2024 Chronic Essential hypertension (20 sources) Benign hypertension; Translations: [Essential (primary) hypertension] Onset: 09-03-2017 09-03-2017 Chronic Genitourinary symptoms and ill-defined conditions (1 source) Retention of urine; Translations: [Retention of urine, unspecified] Episodic Leukemias (14 sources) Chronic myeloid leukemia; Translations: [Chronic myeloid leukemia, BCR/ABL-positive, not having achieved remission] Onset: 06-01-2024 04-30-2023 Chronic Menopausal disorders (1 source) Menopausal symptom; Translations: [Menopausal and female climacteric states] 06-19-2024 Chronic Menstrual disorders (5 sources) Disorder of menstruation; Translations: [Irregular menstruation, unspecified] Onset: 04-21-2024 04-20-2024 Chronic Nonspecific chest pain (1 source) Chest pain; Translations: [Chest pain, unspecified] 04-01-2023 Episodic Nutritional deficiencies (2 sources) Vitamin D deficiency; Translations: [Vitamin D deficiency, unspecified] Onset: 06-21-2024 06-21-2024 Chronic Other acquired deformities (20 sources) Scoliosis deformity of spine; Translations: [Scoliosis, unspecified] Onset: 07-29-2024 06-21-2024 Chronic Other acquired deformities (1 source) Thoracogenic scoliosis; Translations: [Thoracogenic scoliosis, site unspecified] 09-06-2024 Chronic Other acquired deformities (1 source) Scoliosis, unspecified; Translations: [Scoliosis, unspecified scoliosis type, unspecified spinal region] Onset: 06-21-2024 Chronic Other connective tissue disease (1 source) Pain in left arm; Translations: [Pain in left arm] Onset: 09-14-2024 Episodic Other female genital disorders (10 sources) Cyst of uterine adnexa; Translations: [Other noninflammatory disorders of ovary, fallopian tube and broad ligament] Onset: 10-02-2024 10-02-2024 Episodic Other inflammatory condition of skin (20 sources) Rosacea; Translations: [Rosacea, unspecified] Onset: 12-14-2015 12-14-2015 Chronic Other nervous system disorders (1 source) Other chronic pain; Translations: [Chronic bilateral back pain, unspecified back location] Onset: 07-28-2024 Chronic Other nervous system disorders (1 source) Numbness and tingling sensation of skin; Translations: [Anesthesia of skin] 12-17-2023 Episodic Other non-traumatic joint disorders (2 sources) Hip pain; Translations: [Pain in left hip] 12-17-2023 Episodic Other nutritional; endocrine; and metabolic disorders (1 source) Body mass index 25-29 - overweight; Translations: [Overweight] Episodic Other screening for suspected conditions (not mental disorders or infectious disease) (7 sources) Endometrium thickened; Translations: [Abnormal findings on diagnostic imaging of other specified body structures] Onset: 09-29-2024 09-05-2024 Chronic Other screening for suspected conditions (not mental disorders or infectious disease) (11 sources) Patient encounter status; Translations: [Encounter for screening mammogram for malignant neoplasm of breast] Episodic Other skin disorders (1 source) Loss of hair; Translations: [Nonscarring hair loss, unspecified] Episodic Other skin disorders (1 source) Eruption; Translations: [Rash and other nonspecific skin eruption] 04-30-2023 Episodic Residual codes; unclassified (1 source) Insomnia; Translations: [Insomnia, unspecified] 09-18-2023 Episodic Residual codes; unclassified (1 source) Menopause present; Translations: [Asymptomatic menopausal state] 06-17-2024 Episodic Spondylosis; intervertebral disc disorders; other back problems (20 sources) Degeneration of lumbar intervertebral disc; Translations: [Degeneration of intervertebral disc of lumbar region, unspecified whether pain present] Onset: 07-29-2024 07-28-2024 Chronic Thyroid disorders (20 sources) Acquired hypothyroidism; Translations: [Hypothyroidism, unspecified] Onset: 11-16-2015 11-16-2015 Chronic Unclassified (1 source) Degeneration of intervertebral disc of lumbar region, unspecified whether pain present; Translations: [Degeneration of intervertebral disc of lumbar region, unspecified whether pain present] Onset: 07-28-2024 Past or Other Problems Problem Classification Problem Date Documented Date Episodic/Chronic Immunizations and screening for infectious disease (1 source) Encounter for screening for human immunodeficiency virus [HIV]; Translations: [Screening for HIV (human immunodeficiency virus)] Onset: 06-21-2024 Episodic Nutritional deficiencies (2 sources) Iron deficiency; Translations: [Iron deficiency] Onset: 06-21-2024 06-21-2024 Episodic Other nervous system disorders (1 source) Anesthesia of skin; Translations: [Numbness and tingling] Onset: 02-23-2024 Episodic Other nervous system disorders (1 source) Paresthesia of skin; Translations: [Numbness and tingling] Onset: 02-23-2024 Episodic Other nutritional; endocrine; and metabolic disorders (20 sources) Obese class I; Translations: [Obesity, unspecified] Onset: 03-13-2017 Resolved: 09-10-2022 03-13-2017 Chronic Other skin disorders (2 sources) Epidermoid cyst; Translations: [Epidermal cyst] Episodic Other skin disorders (1 source) Seborrheic keratosis; Translations: [Other seborrheic keratosis] 09-10-2023 Episodic Other skin disorders (1 source) Alopecia; Translations: [Androgenic alopecia, unspecified] 09-10-2023 Episodic Ovarian cyst (3 sources) Cyst of right ovary; Translations: [Unspecified ovarian cyst, right side] Onset: 09-29-2024 09-05-2024 Episodic Spondylosis; intervertebral disc disorders; other back problems (20 sources) Chronic back pain ; Translations: [Dorsalgia, unspecified] Onset: 07-28-2024 07-28-2024 Episodic Results Test Name Value Interpretation Reference Range Facility CBC W Auto Differential pane l (Bld)on 01-03-2025 Basophils (Bld) [#/Vol] 0.10 10*3/uL Normal <0.11 [facility] Comment on above: Order Comment: Speci men Type: BLOOD SPECIMENOrdering Facility: [facility] Address: [address] [place] [address] Performed By: #### 5 7021-8 ####[facility] [id number] [place] [address] [place] Basophils/100 WBC (Bld) 1.3 % Normal [facility] Comment on above: Order Comment: Speci men Type: BLOOD SPECIMENOrdering Facility: [facility] Address: [address] [place] [address] Performed By: #### 5 7021-8 ####[facility] MILLCELINANCLIA [id number] [place] [address] [place] Differential cell count method Nom (Bld) Auto Normal [facility] Comment on above: Order Comment: Speci men Type: BLOOD SPECIMENOrdering Facility: [facility] Address: [address] [place] [address] Performed By: #### 5 7021-8 ####[facility] [id number] [place] [address] [place] Eosinophils (Bld) [#/Vol] 0.28 10*3/uL Normal <0.46 [facility] Comment on above: Order Comment: Speci men Type: BLOOD SPECIMENOrdering Facility: [facility] Address: [address] [place] [address] Performed By: #### 5 7021-8 ####[facility] [id number] [place] [address] [place] Eosinophils/100 WBC (Bld) 3.6 % Normal [facility] Comment on above: Order Comment: Speci men Type: BLOOD SPECIMENOrdering Facility: [facility] Address: [address] [place] [address] Performed By: #### 5 7021-8 ####[facility] [id number] [place] [address] [place] Erythrocyte distribution width (RBC) [Ratio] 13.6 % Normal 11.5-15.0 [facility] Comment on above: Order Comment: Speci men Type: BLOOD SPECIMENOrdering Facility: [facility] Address: [address] [place] [address] Performed By: #### 5 7021-8 ####[facility] [id number] [place] [address] [place] Hematocrit (Bld) [Volume fraction] 38.6 % Normal 36.0-46.0 [facility] Comment on above: Order Comment: Speci men Type: BLOOD SPECIMENOrdering Facility: [facility] Address: [address] [place] [address] Performed By: #### 5 7021-8 ####[facility] [id number] [place] [address] [place] Hemoglobin (Bld) [Mass/Vol] 13.2 g/dL Normal 11.5-15.5 [facility] Comment on above: Order Comment: Speci men Type: BLOOD SPECIMENOrdering Facility: [facility] Address: [address] [place] [address] Performed By: #### 5 7021-8 ####[facility]CL[facility] [id number] [place] [address] [place] Immature granulocytes (Bld) [#/Vol] 0.03 10*3/uL Normal <0.10 [facility] Comment on above: Order Comment: Speci men Type: BLOOD SPECIMENOrdering Facility: [facility] Address: [address] [place] [address] Performed By: #### 5 7021-8 ####[facility]CL[facility] [id number] [place] [address] [place] Immature granulocytes/100 WBC (Bld) 0.4 % Normal [facility] Comment on above: Order Comment: Speci men Type: BLOOD SPECIMENOrdering Facility: [facility] Address: [address] [place] [address] Performed By: #### 5 7021-8 ####[facility]CL[facility] [id number] [place] [address] [place] Lymphocytes (Bld) [#/Vol] 1.94 10*3/uL Normal 1.00-4.00 [facility] Comment on above: Order Comment: Speci men Type: BLOOD SPECIMENOrdering Facility: [facility] Address: [address] [place] [address] Performed By: #### 5 7021-8 ####[facility] JOLENENOEL [id number] [place] [address] [place] Lymphocytes/100 WBC (Bld) 24.8 % Normal [facility] Comment on above: Order Comment: Speci men Type: BLOOD SPECIMENOrdering Facility: [facility] Address: [address] [place] [address] Performed By: #### 5 7021-8 ####[facility]ITALNCNIMO [id number] [place] [address] [place] MCH (RBC) [Entitic mass] 32.7 pg Normal 26.0-34.0 [facility] Comment on above: Order Comment: Speci men Type: BLOOD SPECIMENOrdering Facility: [facility] Address: [address] [place] [address] Performed By: #### 5 7021-8 ####[facility]ITALNCAna [id number] [place] [address] [place] MCHC (RBC) [Mass/Vol] 34.2 g/dL Normal 30.5-36.0 [facility] Comment on above: Order Comment: Speci men Type: BLOOD SPECIMENOrdering Facility: [facility] Address: [address] [place] [address] Performed By: #### 5 7021-8 ####[facility]ITALNCLIAna [id number] [place] [address] [place] MCV (RBC) [Entitic vol] 95.5 fL Normal 80.0-100.0 [facility] Comment on above: Order Comment: Speci men Type: BLOOD SPECIMENOrdering Facility: [facility] Address: [address] [place] [address] Performed By: #### 5 7021-8 ####[facility] MILLWNCLIA [id number] [place] [address] [place] Monocytes (Bld) [#/Vol] 0.50 10*3/uL Normal <0.87 [facility] Comment on above: Order Comment: Speci men Type: BLOOD SPECIMENOrdering Facility: [facility] Address: [address] [place] [address] Performed By: #### 5 7021-8 ####[facility]LIA [id number] [place] [address] [place] Monocytes/100 WBC (Bld) 6.4 % Normal [facility] Comment on above: Order Comment: Speci men Type: BLOOD SPECIMENOrdering Facility: [facility] Address: [address] [place] [address] Performed By: #### 5 7021-8 ####[facility] [id number] [place] [address] [place] Neutrophils (Bld) [#/Vol] 4.96 10*3/uL Normal 1.45-7.50 [facility] Comment on above: Order Comment: Speci men Type: BLOOD SPECIMENOrdering Facility: [facility] Address: [address] [place] [address] Performed By: #### 5 7021-8 ####[facility] [id number] [place] [address] [place] Neutrophils/100 WBC (Bld) 63.5 % Normal [facility] Comment on above: Order Comment: Speci men Type: BLOOD SPECIMENOrdering Facility: [facility] Address: [address] [place] [address] Performed By: #### 5 7021-8 ####[facility]UMBUSL[facility] [id number] [place] [address] [place] Nucleated RBC (Bld) [#/Vol] 10*3/uL Normal <0.01 [facility] Comment on above: Order Comment: Speci men Type: BLOOD SPECIMENOrdering Facility: [facility] Address: [address] [place] [address] Performed By: #### 5 7021-8 ####[facility] FLORIDAA [id number] [place] [address] [place] Nucleated RBC/100 WBC (Bld) [Ratio] 0.0 /100 WBC Normal [facility] Comment on above: Order Comment: Speci men Type: BLOOD SPECIMENOrdering Facility: [facility] Address: [address] [place] [address] Performed By: #### 5 7021-8 ####[facility] [id number] [place] [address] [place] Platelet mean volume (Bld) [Entitic vol] 9.7 fL Normal 9.0-12.7 [facility] Comment on above: Order Comment: Speci men Type: BLOOD SPECIMENOrdering Facility: [facility] Address: [address] [place] [address] Performed By: #### 5 7021-8 ####[facility] [id number] [place] [address] [place] Platelets (Bld) [#/Vol] 171 10*3/uL Normal 150-400 [facility] Comment on above: Order Comment: Speci men Type: BLOOD SPECIMENOrdering Facility: [facility] Address: [address] [place] [address] Performed By: #### 5 7021-8 ####[facility] [id number] [place] [address] [place] RBC (Bld) [#/Vol] 4.04 10*6/uL Normal 3.90-5.20 [facility] Comment on above: Order Comment: Speci men Type: BLOOD SPECIMENOrdering Facility: [facility] Address: [address] [place], [place] [address] Performed By: #### 5 7021-8 ####[facility] JOLENEWNCLIA [id number] [place] [address] [place] WBC (Bld) [#/Vol] 7.81 10*3/uL Normal 3.70-11.00 [facility] Comment on above: Order Comment: Speci men Type: BLOOD SPECIMENOrdering Facility: [facility] Address: [address] [place] [address] Performed By: #### 5 7021-8 ####[facility] [id number] [place] [address] [place] [facility] Comprehensive metabolic 2000 panelon 01-03-2025 Albumin [Mass/Vol] 4.6 g/dL Normal 3.9-4.9 [facility] Comment on above: Order Comment: Speci men Type: BLOOD SPECIMENOrdering Facility: [facility] Address: [address] [place] [address] Performed By: #### 2 4323-8 ####[facility] [id number] [place] [address] [place] ALP [Catalytic activity/Vol] 54 U/L Normal 34-123 [facility] Comment on above: Order Comment: Speci men Type: BLOOD SPECIMENOrdering Facility: [facility] Address: [address] [place] [address] Performed By: #### 2 4323-8 ####[facility] [id number] [place] [address] [place] ALT [Catalytic activity/Vol] 18 U/L Normal 7-38 [facility] Comment on above: Order Comment: Speci men Type: BLOOD SPECIMENOrdering Facility: [facility] Address: [address] [place] [address] Performed By: #### 2 4323-8 ####[facility] MILLTOWNCLIA [id number] [place] [address] [place] Anion gap [Moles/Vol] 15 mmol/L Normal 8-15 [facility] Comment on above: Order Comment: Speci men Type: BLOOD SPECIMENOrdering Facility: [facility] Address: [address] [place] [address] Performed By: #### 2 4323-8 ####[facility] MILLTOWNCLIA [id number] [place] [address] [place] AST [Catalytic activity/Vol] 20 U/L Normal 13-35 [facility] Comment on above: Order Comment: Speci men Type: BLOOD SPECIMENOrdering Facility: [facility] Address: [address] [place] [address] Performed By: #### 2 4323-8 ####[facility] MILLWNCLIA [id number] [place] [address] [place] Bilirubin [Mass/Vol] 0.5 mg/dL Normal 0.2-1.3 [facility] Comment on above: Order Comment: Speci men Type: BLOOD SPECIMENOrdering Facility: [facility] Address: [address] [place] [address] Performed By: #### 2 4323-8 ####[facility] MILLTOWNCLIA [id number] [place] [address] [place] Calcium [Mass/Vol] 9.9 mg/dL Normal 8.5-10.2 [facility] Comment on above: Order Comment: Speci men Type: BLOOD SPECIMENOrdering Facility: [facility] Address: [address] [place] [address] Performed By: #### 2 4323-8 ####[facility] MILLWNCLIA [id number] [place] [address] [place] Chloride [Moles/Vol] 103 mmol/L Normal 98-107 [facility] Comment on above: Order Comment: Speci men Type: BLOOD SPECIMENOrdering Facility: [facility] Address: [address] [place] [address] Performed By: #### 2 4323-8 ####[facility] [id number] [place] [address] [place] CO2 [Moles/Vol] 24 mmol/L Normal 22-30 [facility] Comment on above: Order Comment: Speci men Type: BLOOD SPECIMENOrdering Facility: [facility] Address: [address] [place] [address] Performed By: #### 2 4323-8 ####[facility] [id number] [place] [address] [place] Creatinine [Mass/Vol] 0.97 mg/dL High 0.58-0.96 [facility] Comment on above: Order Comment: Speci men Type: BLOOD SPECIMENOrdering Facility: [facility] Address: [address] [place] [address] Performed By: #### 2 4323-8 ####[facility] [id number] [place] [address] [place] [facility] Creatinine and Glomerular filtration rate.predicted panel (S/P/Bld) 70 mL/min/1.73m??? Normal >=60 [facility] Comment on above: Order Comment: Speci men Type: BLOOD SPECIMENOrdering Facility: [facility] Address: [address] [place] [address] Result Comment: Angie mated Glomerular Filtration Rate (eGFR) is calculated using the 2020 CKD-EPI creatinine equation. This equation utilizes serum creatinine, sex, and age as parameters. The creatinine assay has traceable calibration to isotope dilution-mass spectrometry. Refer to KDIGO guidelines for clinical interpretation. In patients with unstable renal function, e.g. those with acute kidney injury, the eGFR may not accurately reflect actual GFR. Performed By: #### 2 4323-8 ####[facility] JOLENECELINANCLIA [id number] [place] [address] [place] Glucose [Mass/Vol] 91 mg/dL Normal 74-99 [facility] Comment on above: Order Comment: Speci men Type: BLOOD SPECIMENOrdering Facility: [facility] Address: [address] [place] [address] Result Comment: The [place] Diabetes Association (ADA) provides guidance for cutoff values for fasting glucose and random glucose. The ADA defines fasting as no caloric intake for at least 8 hours. Fasting plasma glucose results between 100 to 125 mg/dL indicate increased risk for diabetes (prediabetes). Fasting plasma glucose results greater than or equal to 126 mg/dL meet the criteria for diagnosis of diabetes. In the absence of unequivocal hyperglycemia, results should be confirmed by repeat testing. In a patient with classic symptoms of hyperglycemia or hyperglycemic crisis, random plasma glucose results greater than or equal to 200 mg/dL meet the criteria for diagnosis of diabetes. Reference: Standards of Medical Care in Diabetes 2016, [place] [employer] Association. Diabetes Care. 2016.39(Suppl 1). Performed By: #### 2 4323-8 ####[facility]BUSLIA [id number] [place] [address] [place] Potassium [Moles/Vol] 3.7 mmol/L Normal 3.7-5.1 [facility] Comment on above: Order Comment: Speci men Type: BLOOD SPECIMENOrdering Facility: [facility] Address: [address] [place] [place] [id number] Performed By: #### 2 4323-8 ####[facility] [id number] [place] [address] [place] Protein [Mass/Vol] 7.1 g/dL Normal 6.3-8.0 [facility] Comment on above: Order Comment: Zacharyi men Type: BLOOD SPECIMENOrdering Facility: [facility] Address: [address] [place], [place] [address] Performed By: #### 2 4323-8 ####[facility] DEBORAHWNCLIA [id number] [place] [address] [place] Sodium [Moles/Vol] 142 mmol/L Normal 136-144 [facility] Comment on above: Order Comment: Speci men Type: BLOOD SPECIMENOrdering Facility: [facility] Address: [facility] [place] [id number] Performed By: #### 2 4323-8 ####[facility] PATRIANCLIA [id number] [place] [address] [place] Urea nitrogen [Mass/Vol] 17 mg/dL Normal 7-21 [facility] Comment on above: Order Comment: Speci men Type: BLOOD SPECIMENOrdering Facility: [facility] Address: [address] [place], [place] [address] [address] Performed By: #### 2 4323-8 ####[facility] JOLENECELINANCLIA [id number] [address] [place] CNOVSPon 12-12-2024 CNOVS Visit (SP) Office (HE[place]) ROSALINDA RUSSO ([id number]) 1970 F Date Time Provider Department 12/12/24 8:30 AM PRINCE URIBE During your visit today, we recorded the following information about you: Temperature Pulse Blood pressure Weight 98.8 degrees 77/minute 103/67 77.1 kg Prince Uribe MD 12/12/2024 12:13 PM Signed (Elements copied from my note dated June 09, 2024, have been reviewed and updated where appropriate, and all reflect current assessment and medical decision making from today's encounter, December 12, 2024) HISTORY OF PRESENT ILLNESS: Rosalinda Russo is a 53 year old female referred from ER with WBC 380K. Feels well, no fevers, active. Was in ER with chest pains, atypical, work up for this negative. Detailed review of labs Here for follow up, on Gleevec since Apr 14, 2023. Switched to dasatinib October 2023 due to persistent transcript Here for follow up, feels well, reviewed labs in detail, also NCCN guidelines. 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 Continue dasatinib but increase dose to 140 mg daily per . PCR testing 3 months. Written and verbal health teaching given to patient, patient verbalizes understanding and agrees with treatment plan. PAST MEDICAL HISTORY Diagnosis Date Benign hypertension 09/03/2017 Hypothyroid Rosacea PAST SURGICAL HISTORY Procedure Laterality Date SECTION HX 01/2013 [facility] CHOLECYSTECTOMY 2009 [facility] HERNIA REPAIR HX 11/2013 [facility] LAPAROSCOPY REPAIR INCISIONAL HERNIA REDUCIBLE 07/2013 [facility] FAMILY HISTORY Problem Relation Age of Onset Depression Mother Diabetes Father Cancer Father liver Hypertension Father Blood Clots Sister Hypertension Sister Alcohol abuse Sister Stroke Maternal Grandmother Blindness Maternal Grandmother Hypertension Maternal Grandmother Diabetes Maternal Grandmother Hypertension Maternal Grandfather Diabetes Maternal Grandfather Heart Attack Paternal Grandmother Hypertension Paternal Grandfather Stroke Paternal Grandfather Diabetes Paternal Grandfather Social History Tobacco Use Smoking status: Never Smokeless tobacco: Never Vaping Use Vaping status: Never Used Substance Use Topics Alcohol use: Not Currently Comment: rarely Drug use: No ALLERGIES: ALLERGIES No Known Allergies CURRENT OUTPATIENT MEDICATIONS: dasatinib (SPRYCEL) 100 mg tablet TAKE 1 TABLET BY MOUTH 1 TIME A DAY lisinopril-hydroCHLORO thiazide (ZESTORETIC) 20-12.5 mg per tablet Take 1 tablet by mouth once daily. progesterone micronized (PROMETRIUM) 200 mg capsule Take 1 capsule by mouth daily at bedtime for 7 days. every 2-3 months to induce a period amLODIPine (NORVASC) 2.5 mg tablet Take 1 tablet by mouth once daily. buPROPion XL (WELLBUTRIN XL) 300 mg 24 hr tablet Take 1 tablet by mouth once daily. SYNTHROID 100 mcg tablet Take 1 tablet by mouth once daily. Take on empty stomach Azelaic Acid (FINACEA) 15 % gel Apply 1 application to affected area two times a day. acetaminophen (TYLENOL EXTRA STRENGTH) 500 mg tablet Take 1,000 mg by mouth every 8 hours as needed. Cholecalciferol, Vitamin D3, 2,000 unit cap Take 1 tablet by mouth once daily. REVIEW OF SYSTEMS: GENERAL: No fever, night sweats, weight loss or malaise. All other reviewed and negative other than HPI. PHYSICAL EXAMINATION: VITAL SIGNS: BP 103/67 Pulse 77 Temp (Src) 98.8 (Temporal) Wt 170 lb (77.1kg) SpO2 99% LMP 09/15/2024 GENERAL APPEARANCE: Well appearing, in no acute distress, alert and oriented x3, well-hydrated, well nourished. No splenomegaly I spent a total of 30 minutes on the date of the service which included preparing to see the patient, [id number] patient care, completing clinical documentation, obtaining and/or reviewing separately obtained history, counseling and educating the patient/family/caregiv er, ordering medications, tests, or procedures, communicating with other HCPs (not separately reported), independently interpreting results (not separately reported), communicating results to the patient/family/caregiv er, and care coordination (not separately reported). Discussion with Dr Ngo Electronically Signed: Prince Uribe MD December 12, 2024 Allergies As of Date: 12/12/2024 (No Known Allergies) Date Reviewed: 12/12/2024 Reviewed by: Candace Soto Ma, MA - Fully Assessed Reason for Visit: Established Patient [175] Primary Visit Diagnosis:CML (chronic myeloid leukemia) ([facility]) [C92.10] Order(s):dasatinib (SPRYCEL) 140 mg tabletTake 1 tablet (140 mg) by mouth once daily.Disp: 30 tabletRfl: 11 COMPLETE BLOOD COUNT AND (more content not included)... Normal [facility] BCR/ABL1 P210 %IS PANELon BCR/ABL1 P210 %IS 0.6228 Normal [facility] Comment on above: Order Comment: Speci men Type: BLOOD SPECIMENOrdering Facility: [facility] Address: [address] [place] [address] Performed By: #### P 210P ####[facility] LIMSCLIA [id number] [place] [address] [place]#### 210ISBP ####[facility] LABCLIA [id number] [address] [place] BCR/ABL1 P210 MR 2.21 Normal [facility] Comment on above: Order Comment: Speci men Type: BLOOD SPECIMENOrdering Facility: [facility] Address: [address] [place] [address] Performed By: #### P 210P ####[facility] LIMSCLIA [id number] [address] OF [place]#### 210ISBP ####[facility] LABIA [id number] [address] [place] BCR/ABL1 P210 QUANTITATIVE P CR BLOODon 12-02-2024 BCR/ABL1 P210 INTERPRETATION Normal [facility] Comment on above: Order Comment: Speci men Type: BLOOD SPECIMENOrdering Facility: [facility] Address: [address] [place] [address] Result Comment: BCR/ ABL1 p210 Quantitative PCR Laboratory Accession Number: [id number] Result: DETECTED MR: 2.21 %IS: 0.6228 Interpretation: p210 BCR/ABL1 transcripts were detected. Quantitative results are expressed on the International Scale (IS) and a log molecular response (MR) is calculated. On this scale, a value of less than or equal to 0.1% corresponds to a major molecular response (MMR or MR3.0). Methodology: [employer] ([employer]) QuantideX BCR/ABL IS assay is an FDA-cleared in vitro diagnostic test for the quantitation of BCR/ABL1 and ABL1 transcripts in total RNA from whole blood of diagnosed t(9;22) positive chronic myeloid leukemia patients expressing e13a2 and/or e14a2 fusion transcripts. This test does not detect p190 (e1a2) or other rare BCR/ABL1 transcripts. This assay has a limit of quantification and limit of detection of 0.002% IS or MR4.7. References: 1) Gisselle et al, Blood 2006;108:28-37; Cross et al, Leukemia 2015;29:999-1003 Interpretation performed by Moises Key MD Performed By: #### P 210P ####[facility] LIMSCLIA [id number] [address] OF [facility]#### 210ISBP ####[facility] LABCLIA [id number] [place] [id number] [place] CBC W Auto Differential pane l (Bld)on 12-02-2024 Basophils (Bld) [#/Vol] 0.09 10*3/uL Normal <0.11 [facility] Comment on above: Order Comment: Speci men Type: BLOOD SPECIMENOrdering Facility: [facility] Address: [address] [place] [address] Performed By: #### 5 7021-8 ####[facility] [id number] [place] [address] [place] Basophils/100 WBC (Bld) 1.3 % Normal [facility] Comment on above: Order Comment: Speci men Type: BLOOD SPECIMENOrdering Facility: [facility] Address: [address] [place] [address] Performed By: #### 5 7021-8 ####[facility] [id number] [place] [address] [place] Differential cell count method Nom (Bld) Auto Normal [facility] Comment on above: Order Comment: Speci men Type: BLOOD SPECIMENOrdering Facility: [facility] Address: [address] [place] [address] Performed By: #### 5 7021-8 ####[facility]LIA [id number] [place] [address] [place] Eosinophils (Bld) [#/Vol] 0.19 10*3/uL Normal <0.46 [facility] Comment on above: Order Comment: Speci men Type: BLOOD SPECIMENOrdering Facility: [facility] Address: [address] [place] [address] Performed By: #### 5 7021-8 ####[facility] [id number] [place] [address] [place] Eosinophils/100 WBC (Bld) 2.8 % Normal [facility] Comment on above: Order Comment: Speci men Type: BLOOD SPECIMENOrdering Facility: [facility] Address: [address] [place] [address] Performed By: #### 5 7021-8 ####[facility] [id number] [place] [address] [place] Erythrocyte distribution width (RBC) [Ratio] 13.2 % Normal 11.5-15.0 [facility] Comment on above: Order Comment: Speci men Type: BLOOD SPECIMENOrdering Facility: [facility] Address: [address] [place] [address] Performed By: #### 5 7021-8 ####[facility] [id number] [place] [address] [place] Hematocrit (Bld) [Volume fraction] 38.7 % Normal 36.0-46.0 [facility] Comment on above: Order Comment: Speci men Type: BLOOD SPECIMENOrdering Facility: [facility] Address: [address] [place] [address] Performed By: #### 5 7021-8 ####[facility] [id number] [place] [address] [place] Hemoglobin (Bld) [Mass/Vol] 13.4 g/dL Normal 11.5-15.5 [facility] Comment on above: Order Comment: Speci men Type: BLOOD SPECIMENOrdering Facility: [facility] Address: [address] [place] [address] Performed By: #### 5 7021-8 ####[facility] MILLTOWNCLIA [id number] [place] [address] [place] Immature granulocytes (Bld) [#/Vol] 10*3/uL Normal <0.10 [facility] Comment on above: Order Comment: Speci men Type: BLOOD SPECIMENOrdering Facility: [facility] Address: [address] [place] [address] Performed By: #### 5 7021-8 ####[facility] MILLWNCLIA [id number] [place] [address] [place] Immature granulocytes/100 WBC (Bld) 0.3 % Normal [facility] Comment on above: Order Comment: Speci men Type: BLOOD SPECIMENOrdering Facility: [facility] Address: [address] [place] [address] Performed By: #### 5 7021-8 ####[facility] DEBORAHWNCLIA [id number] [place] [address] [place] Lymphocytes (Bld) [#/Vol] 2.04 10*3/uL Normal 1.00-4.00 [facility] Comment on above: Order Comment: Speci men Type: BLOOD SPECIMENOrdering Facility: [facility] Address: [address] [place] [address] Performed By: #### 5 7021-8 ####[facility] MILLTOWNCLIA [id number] [place] [address] [place] Lymphocytes/100 WBC (Bld) 30.3 % Normal [facility] Comment on above: Order Comment: Speci men Type: BLOOD SPECIMENOrdering Facility: [facility] Address: [address] [place] [address] Performed By: #### 5 7021-8 ####[facility] [id number] [place] [address] [place] MCH (RBC) [Entitic mass] 32.3 pg Normal 26.0-34.0 [facility] Comment on above: Order Comment: Speci men Type: BLOOD SPECIMENOrdering Facility: [facility] Address: [address] [place] [address] Performed By: #### 5 7021-8 ####[facility] [id number] [place] [address] [place] MCHC (RBC) [Mass/Vol] 34.6 g/dL Normal 30.5-36.0 [facility] Comment on above: Order Comment: Speci men Type: BLOOD SPECIMENOrdering Facility: [facility] Address: [address] [place] [address] Performed By: #### 5 7021-8 ####[facility] [id number] [place] [address] [place] MCV (RBC) [Entitic vol] 93.3 fL Normal 80.0-100.0 [facility] Comment on above: Order Comment: Speci men Type: BLOOD SPECIMENOrdering Facility: [facility] Address: [address] [place] [address] Performed By: #### 5 7021-8 ####[facility] [id number] [place] [address] [place] Monocytes (Bld) [#/Vol] 0.46 10*3/uL Normal <0.87 [facility] Comment on above: Order Comment: Speci men Type: BLOOD SPECIMENOrdering Facility: [facility] Address: [address] [place] [address] Performed By: #### 5 7021-8 ####[facility] [id number] [place] [address] [place] Monocytes/100 WBC (Bld) 6.8 % Normal [facility] Comment on above: Order Comment: Speci men Type: BLOOD SPECIMENOrdering Facility: [facility] Address: [address] [place] [address] Performed By: #### 5 7021-8 ####[facility] [id number] [place] [address] [place] Neutrophils (Bld) [#/Vol] 3.94 10*3/uL Normal 1.45-7.50 [facility] Comment on above: Order Comment: Speci men Type: BLOOD SPECIMENOrdering Facility: [facility] Address: [address] [place] [address] Performed By: #### 5 7021-8 ####[facility] [id number] [place] [address] [place] Neutrophils/100 WBC (Bld) 58.5 % Normal [facility] Comment on above: Order Comment: Speci men Type: BLOOD SPECIMENOrdering Facility: [facility] Address: [address] [place] [address] Performed By: #### 5 7021-8 ####[facility] [id number] [place] [address] [place] Nucleated RBC (Bld) [#/Vol] 10*3/uL Normal <0.01 [facility] Comment on above: Order Comment: Speci men Type: BLOOD SPECIMENOrdering Facility: [facility] Address: [address] [place] [address] Performed By: #### 5 7021-8 ####[facility] [id number] [place], [place] [address] [place] Nucleated RBC/100 WBC (Bld) [Ratio] 0.0 /100 WBC Normal [facility] Comment on above: Order Comment: Speci men Type: BLOOD SPECIMENOrdering Facility: [facility] Address: [address] [place] [address] Performed By: #### 5 7021-8 ####[facility] PATRIANCSARAHA [id number] [place] [address] [place] Platelet mean volume (Bld) [Entitic vol] 9.7 fL Normal 9.0-12.7 [facility] Comment on above: Order Comment: Speci men Type: BLOOD SPECIMENOrdering Facility: [facility] Address: [address] [place] [address] Performed By: #### 5 7021-8 ####[facility]NCNIMO [id number] [place] [address] [place] Platelets (Bld) [#/Vol] 168 10*3/uL Normal 150-400 [facility] Comment on above: Order Comment: Speci men Type: BLOOD SPECIMENOrdering Facility: [facility] Address: [address] [place] [address] Performed By: #### 5 7021-8 ####[facility]ITALNCLIA [id number] [place] [address] [place] RBC (Bld) [#/Vol] 4.15 10*6/uL Normal 3.90-5.20 [facility] Comment on above: Order Comment: Speci men Type: BLOOD SPECIMENOrdering Facility: [facility] Address: [address] [place] [address] Performed By: #### 5 7021-8 ####[facility]NCLIA [id number] [place] [address] [place] WBC (Bld) [#/Vol] 6.74 10*3/uL Normal 3.70-11.00 [facility] Comment on above: Order Comment: Speci men Type: BLOOD SPECIMENOrdering Facility: [facility] Address: [address] [place] [address] Performed By: #### 5 7021-8 ####[facility] MILLTOWNCLIA [id number] [place] [address] [place] Comprehensive metabolic 2000 panelon 12-02-2024 Albumin [Mass/Vol] 4.7 g/dL Normal 3.9-4.9 [facility] Comment on above: Order Comment: Speci men Type: BLOOD SPECIMENOrdering Facility: [facility] Address: [address] [place] [address] Performed By: #### 2 4323-8 ####[facility] MILLTOWNCLIA [id number] [place] [address] [place] ALP [Catalytic activity/Vol] 50 U/L Normal 34-123 [facility] Comment on above: Order Comment: Speci men Type: BLOOD SPECIMENOrdering Facility: [facility] Address: [address] [place] [address] Performed By: #### 2 4323-8 ####[facility] MILLWNCLIA [id number] [place] [address] [place] ALT [Catalytic activity/Vol] 21 U/L Normal 7-38 [facility] Comment on above: Order Comment: Speci men Type: BLOOD SPECIMENOrdering Facility: [facility] Address: [address] [place] [address] Performed By: #### 2 4323-8 ####[facility] MILLTOWNCLIA [id number] [place] [address] [place] Anion gap [Moles/Vol] 9 mmol/L Normal 8-15 [facility] Comment on above: Order Comment: Speci men Type: BLOOD SPECIMENOrdering Facility: [facility] Address: [address] [place] [address] Performed By: #### 2 4323-8 ####[facility] INSTITUTEWNCLIA [id number] [place] [address] [place] AST [Catalytic activity/Vol] 22 U/L Normal 13-35 [facility] Comment on above: Order Comment: Speci men Type: BLOOD SPECIMENOrdering Facility: [facility] Address: [address] [place] [address] Performed By: #### 2 4323-8 ####[facility] INSTITUTEWNCLI [id number] [place] [address] [place] Bilirubin [Mass/Vol] 0.6 mg/dL Normal 0.2-1.3 [facility] Comment on above: Order Comment: Speci men Type: BLOOD SPECIMENOrdering Facility: [facility] Address: [address] [place] [address] Performed By: #### 2 4323-8 ####[facility] [id number] [place] [address] [place] Calcium [Mass/Vol] 10.0 mg/dL Normal 8.5-10.2 [facility] Comment on above: Order Comment: Speci men Type: BLOOD SPECIMENOrdering Facility: [facility] Address: [address] [place] [address] Performed By: #### 2 4323-8 ####[facility] [id number] [place] [address] [place] Chloride [Moles/Vol] 101 mmol/L Normal 98-107 [facility] Comment on above: Order Comment: Speci men Type: BLOOD SPECIMENOrdering Facility: [facility] Address: [address] [place] [address] Performed By: #### 2 4323-8 ####[facility]ITALNCLI [id number] [place] [address] [place] CO2 [Moles/Vol] 29 mmol/L Normal 22-30 [facility] Comment on above: Order Comment: Speci men Type: BLOOD SPECIMENOrdering Facility: [facility] Address: [address] [place] [address] Performed By: #### 2 4323-8 ####[facility] JOLENECELINANCLIA [id number] [place] [address] [place] Creatinine [Mass/Vol] 0.99 mg/dL High 0.58-0.96 [facility] Comment on above: Order Comment: Speci men Type: BLOOD SPECIMENOrdering Facility: [facility] Address: [address] [place] [address] Performed By: #### 2 4323-8 ####[facility]ITALNCLIA [id number] [place] [address] [place] Creatinine and Glomerular filtration rate.predicted panel (S/P/Bld) 69 mL/min/1.73m??? Normal >=60 [facility] Comment on above: Order Comment: Ryan men Type: BLOOD SPECIMENOrdering Facility: [facility] Address: [address] [place] [address] Result Comment: Angie mated Glomerular Filtration Rate (eGFR) is calculated using the 2020 CKD-EPI creatinine equation. This equation utilizes serum creatinine, sex, and age as parameters. The creatinine assay has traceable calibration to isotope dilution-mass spectrometry. Refer to KDIGO guidelines for clinical interpretation. In patients with unstable renal function, e.g. those with acute kidney injury, the eGFR may not accurately reflect actual GFR. Performed By: #### 2 4323-8 ####[facility]ITALNCLIA [id number] [place] [address] [place] Glucose [Mass/Vol] 97 mg/dL Normal 74-99 [facility] Comment on above: Order Comment: Speci men Type: BLOOD SPECIMENOrdering Facility: [facility] Address: [address] [place] [address] Result Comment: The [place] Diabetes Association (ADA) provides guidance for cutoff values for fasting glucose and random glucose. The ADA defines fasting as no caloric intake for at least 8 hours. Fasting plasma glucose results between 100 to 125 mg/dL indicate increased risk for diabetes (prediabetes). Fasting plasma glucose results greater than or equal to 126 mg/dL meet the criteria for diagnosis of diabetes. In the absence of unequivocal hyperglycemia, results should be confirmed by repeat testing. In a patient with classic symptoms of hyperglycemia or hyperglycemic crisis, random plasma glucose results greater than or equal to 200 mg/dL meet the criteria for diagnosis of diabetes. Reference: Standards of Medical Care in Diabetes 2016, [place] [employer] Association. Diabetes Care. 2016.39(Suppl 1). Performed By: #### 2 4323-8 ####[facility] MILLTOWNCLIA [id number] [place] [address] [place] Potassium [Moles/Vol] 3.9 mmol/L Normal 3.7-5.1 [facility] Comment on above: Order Comment: Ryan rangel Type: BLOOD SPECIMENOrdering Facility: [facility] Address: [address] [place] [address] Performed By: #### 2 4323-8 ####[facility] MILLWNCLIA [id number] [place] [address] [place] Protein [Mass/Vol] 7.3 g/dL Normal 6.3-8.0 [facility] Comment on above: Order Comment: Ryan rangel Type: BLOOD SPECIMENOrdering Facility: [facility] Address: [address] [place] [address] Performed By: #### 2 4323-8 ####[facility] INSTITUTEWNCLIA [id number] [place] [address] [place] Sodium [Moles/Vol] 139 mmol/L Normal 136-144 [facility] Comment on above: Order Comment: Zacharyi men Type: BLOOD SPECIMENOrdering Facility: [facility] Address: [address] [place] [address] Performed By: #### 2 4323-8 ####[facility] MILLWNCLIA [id number] [place] [address] [place] Urea nitrogen [Mass/Vol] 17 mg/dL Normal 7-21 [facility] Comment on above: Order Comment: Speci men Type: BLOOD SPECIMENOrdering Facility: [facility] Address: [place] [address] Performed By: #### 2 4323-8 ####[facility] RAMIREZ [id number] [place] [address] [place] Pelvison 10-02-2024 Indication endometrial thickening on ultrasound, ovarian cyst-right Impression The uterus is anteverted and measures 115 mm x 75 mm x 75 mm. The myometrium is asymmetrically thickened, echogenic, heterogeneous and has myometrial fanning but no obvious fibroids are observed. This finding is suggestive of adenomyosis. The endometrial thickness is 12.8 mm. The right ovary measures 41 mm x 25 mm x 21 mm. The left ovary measures 38 mm x 18 mm x 22 mm and contains dominant follicle. There is a simple left paratubal/paraovarian cyst that measures 11 mm x 10 mm x 12 mm. There is no free fluid visualized. Recommendations Simple paraovarian/paratubal cyst, no follow up imaging is needed. Ultrasound findings suggestive for adenomyosis. Clinical correlation is recommended. Menstrual History LMP on 09/11/2024. Cycle: LMP date uncertain. TRANSITIONS MANAGER RN 10/14/23 Method Transabdominal, transvaginal, 3D ultrasound examination, Color Doppler examination. View: Adequate visualization Uterus Uterus: Visualized Uterus position: anteverted Description of uterine malformations: none Myometrium: asymmetrically thickened, echogenic, heterogeneous and has myometrial fanning Endometrium: normal Cervix details: cystic lesions identified suggesting superficial Nabothian cysts Uterus length 115 mm Uterus width 75 mm Uterus height 75 mm Uterus Vol 335.7 cm Endometrial thickness, total 12.8 mm Fibroids: No fibroids identified Polyps: No polyps identified Right Ovary Rt ovary: Visualized Rt ovary morphology: normal Rt ovary D1 41 mm Rt ovary D2 25 mm Rt ovary D3 21 mm Rt ovary Vol 10.8 cm Rt ovarian cyst(s): No cysts identified Rt ovarian follicle(s): Follicles identified Left Ovary Lt ovary: Visualized Lt ovary D1 38 mm Lt ovary D2 18 mm Lt ovary D3 22 mm Lt ovary Vol 7.8 cm Lt ovarian cyst(s): No cysts identified Lt ovarian follicle D1 20.5 mm Lt ovarian follicle D2 22.0 mm Lt ovarian follicle D3 16.8 mm Lt ovarian follicle mean 19.8 mm Lt ovarian follicle vol 3.967 cm Lt ovarian follicle findings: Leading follicle Left Adnexal Mass Findings: unilocular cyst. Size 11.0 mm x 9.7 mm x 12.3 mm. Mean 11.0 mm. Vol 0.687 cm . Findings consistent with a para-ovarian cyst Cul de Sac Visualized. no free fluid visualized Performed By: Marci Olea RDMS Read By: Brad Leone M.D. MATERNAL MEDICINE [facility] CNOVon 09-29-2024 CNOV Office Visit (OBGYWM ) ROSALINDA RUSSO ([id number]) 1970 F Date Time Provider Department 09/29/24 10:10 AM MARGA CROWE OBGYWM During your visit today, we recorded the following information about you: Blood pressure Weight Last Period 112/82 76.7 kg 09/15/24 Marga Crowe MD 09/29/2024 11:32 AM Signed Rosalinda is a 54 year old Female who presents today for an endometrial biopsy/hysteroscopy for abnormal uterine bleeding, thickened endometrium. Age: [age] year old LMP: Patient's last menstrual period was 09/15/2024 (approximate). test: not done - can't void, no intercourse since last menses. Did have bleed after the progesterone but not heavy VS: BP 112/82 Wt 169 lb (76.7kg) LMP 09/15/2024 UNIVERSAL PROTOCOL / SAFETY CHECKLIST Procedure to be Performed: Hysteroscopy w/ EMB Sign In: A Moment of CARE was completed. Personnel directly involved with the procedure wore the appropriate PPE (Personal Protective Equipment). Patient/Surrogate Stated/Verified: PATIENT VERIFIED(optional for EMERGENT procedures): Patient name, Date of , Relevant allergies, and The intended procedure Time Out Communication: Intended patient and procedure match the source documents. Consent documented and matches the intended procedure. Relevant labs, photos, and/or imaging studies have been reviewed. No implant(s) inserted. Sign Out: SIGN OUT (optional for EMERGENT procedures): All specimen containers correctly labeled. All instruments, equipment, possible retained foreign bodies accounted for. Post-procedure follow-up management communicated and Plan of Care Visit completed when applicable. Marga Crowe MD OBJECTIVE: Cervix cleaned with betadine. A single tooth tenaculum was used to grasp cervix. Under sterile conditions, using 20 mL normal saline as distention, ENDOSEE hysteroscopy performed without incident. Endometrial lining is normal. Tubal ostia visualized and normal. No focal abnormalities noted. EMB done and 3 passes made, specimen labeled. PROCEDURE SUMMARY: Patient tolerated procedure well. ASSESMENT: Irregular Bleeding and Increased endometrial thickness with no lesions on hysteroscopy. PLAN: Follow up endometrial biopsy results. Cyclic provera q 12 weeks until no withdrawal bleed or if bothersome symptoms return and consider in OR hysteroscopy [facility] Marga Crowe MD [place], [place] 09/29/2024 9:42 AM Signed YOUR RECOVERY After your biopsy you may have: Vaginal bleeding (less than a normal menstrual period) Mild cramping Do NOT put anything in the vagina for 1 week after your endometrial biopsy. This includes: tampons douches and refraining from having sexual intercourse If you have any discomfort, you may take an over the counter pain medication (motrin, advil, ibuprofen, tylenol, etc). If this does not relieve your discomfort, contact the office. It is okay to wear a sanitary pad until the discharge and spotting stops. RISKS Although problems seldom occur with endometrial biopsies, there can be some complications. You may feel faint during and shortly after the procedure as well as have some bleeding after the procedure. There is also a risk of infection after the procedure. These complications are rare and can be easily treated. You should contact you doctor is you have any of the following: Heavy bleeding (more than your normal period) Bleeding with clots Severe abdominal pain Fever (more than 100.4F) Foul smelling vaginal discharge RESULTS We will have the results of your biopsy in 1-2 weeks. If you do not hear the results of your biopsy after 2 weeks, please contact the office for the results. If you have any additional questions or concerns please do not hesitate to contact the office. Referring Provider: MARGA CROWE [[id number]] Allergies As of Date: 09/29/2024 (No Known Allergies) Date Reviewed: 09/29/2024 Reviewed by: Jessica Lo MA - Fully Assessed Reason for Visit: Endometrial Biopsy [5361] Primary Visit Diagnosis:Endometrial thickening on ultrasound [R93.89] Order(s):SURGICAL PATHOLOGY [JRT5708] Order #: [id number]. #:[id number] UA DIP,URINE HCG (POC) [2765179] Order #: [id number] OFFICE HYSTEROSCOPY [[id number]] Order #: [id number] progesterone micronized (PROMETRIUM) 200 mg capsuleTake 1 capsule by mouth daily at bedtime for 7 days. every 2-3 months to induce a periodDisp: 7 capsuleRfl: 4 Prescriptions as of 09/29/2024 - progesterone micronized (PROMETRIUM) 200 mg capsule Take 1 capsule by mouth daily at bedtime for 7 days. every 2-3 months to induce a period - amLODIPine (NORVASC) 2.5 mg tablet Take 1 tablet by mouth once daily. - buPROPion XL (WELLBUTRIN XL) 300 mg 24 hr tablet Take 1 tablet by mouth once daily. - SYNTHROID 100 mcg tablet Take 1 tablet by mouth on (more content not included)... Normal [facility] Pathology biopsy report [place] (Tiss)on 09-29-2024 CASE REPORT Normal [facility] Comment on above: Order Comment: Speci men Type: TISSUE SPECIMEN [facility] Address: [address] [place] [address] Result Comment: Surg [facility] Pathology Report Case: [id number] Authorizing Provider: Marga Crowe MD Collected: 09/29/2024 10:56 AM Ordering Location: OB/Gynecology Received: 09/29/2024 12:14 PM Pathologist: Arleen Bullock MD Specimen: Endometrium, Biopsy Performed By: #### 6 6121-5 #### [facility] CLIA [id number] [address] [place] [address] [place] [address] [place] CLINICAL HISTORY endometrial thickening Normal [facility] Comment on above: Order Comment: Speci men Type: TISSUE SPECIMEN [facility] Address: [address] [place] [address] Performed By: #### 6 6121-5 #### [facility] CLIA [id number] [address] [place] [address] [place] FINAL DIAGNOSIS Normal [facility] Comment on above: Order Comment: Speci men Type: TISSUE SPECIMEN [facility] Address: [address] [place] [address] Result Comment: Endo metrium, biopsy - Benign proliferative endometrium. - Benign endocervix. at 1247 EST Performed By: #### 6 6121-5 #### [facility] CLIA [id number] [address] [place] [address] [place] FINAL PERFORMING LAB Normal [facility] Comment on above: Order Comment: Speci men Type: TISSUE SPECIMEN [facility] Address: [address] [place] [address] Result Comment: Diag nostic interpretation performed at: [facility], [address] [place] [address] CLIA# [id number] Dough Mixer Operator: Laci Mauricio MD Performed By: #### 6 6121-5 #### [facility] CLIA [id number] [address] [place] [address] [place] GROSS DESCRIPTION Normal [facility] Comment on above: Order Comment: Speci men Type: TISSUE SPECIMEN [facility] Address: [address] [place] [address] Result Comment: A. E ndometrium, Biopsy Received in formalin are multiple trent-brown, soft feathery segments of tissue admixed with mucinous material and red-brown hemorrhagic material aggregating to 2.8 x 2.1 x 0.2 cm. Totally submitted in one cassette. Gross examination performed at [facility], [address] [place] [address], [place] [id number] KK September 29, 2024 4:49 PM Performed By: #### 6 6121-5 #### [facility] CLIA [id number] [address] [place] [address] [id number] [address] [place] US Pelvison 09-29-2024 Radiology Study observation (narrative) [facility] CNOVon 09-23-2024 CNOV Office Visit (INTMWS ) ROSALINDA RUSSO ([id number]) 1970 F Date Time Provider Department 09/23/24 9:20 AM EDEN PETERSEN INTMWS During your visit today, we recorded the following information about you: Pulse Respiration Blood pressure Weight 85/minute 16/minute 109/71 75.7 kg Eden Petersen MD 09/23/2024 12:48 PM Signed Reason for Visit Patient presents with: F/U 3 Month Rosalinda Russo is a 52 year old female who presents here today for Above Complaints.. Health Maintenance HEPATITIS B(1 of 3 - 3-dose series) MAMMOGRAM SHINGRIX VACCINE(1 of 2) INFLUENZA(1) LIPID SCREEN HPI Jessica is a very pleasant 54-year-old with a past medical history of hypertension, anxiety depression and hypothyroidism. Recently she was diagnosed with Chronic myeloid leukemia. Here to talk about her periods cessation and few other issues She has a pt sitter in [place], sees him yearly. Her periods were very regular, had no problems till recently when her. Stopped around 7 months ago and a couple months back she had spotting that lasted for 3 weeks. Was advised to get ultrasound of the uterus. Her FSH that was done in our system a few months ago was not in the postmenopausal Levels. She did have repeat test in the past week and her levels were definitely towards the postmenopausal level. They were higher than the upper range of the luteal follicular and ovulatory phases. They were reaching towards the postmenopausal phase. Last year she did have some irregularities. She had her period in August 2022 she had her regular periods and on october 25, she had one occurrence, of spotting the blood was dark and dried. Her mother had surgical menopause. She has not been gaining weight but rather losing weight, she has lost around 50 pounds, intentionally in 2 years, cut out her soda, does intermittent fasting. On retrospect we think that this weight loss is probably partially from the CML in addition to her diet and exercise. She denies having nausea, bloating, easy satiety, abdominal pain, or other pt sitter symptoms She does have some hot flashes, no genitourinary syndrome. On wellbutrin so she has not noticed any fatigue or depression that is over her baseline. HTN: Compliant with medications. Denies any chest pain, palpitations, or edema. No SOB. Doesn't check BP at home generally. Careful with diet to avoid salt, trying to eat more fruits and vegetables, exercises regularly. 09/23/24: followed up for spotting with DIRECTOR OF PSYCHOLOGY who performed US and will have a endometrial biopsy. Had apt with onchology who confirmed continued remission , her numbers were a little on the higher side , cont the dasatinib. She has been to see Physical Therapy who have worked on her back for DDD and scoliosis, it has helped doing regular exercises. Iron, vit d and vit b12 is in normal range. She is on wellbutrin for anxiety depression but still scoring high. She is doing well on it, not feeling as drowning under the water. She does exercise 30 mins 4 times week. No problem-specific Assessment AND Plan notes found for this encounter. PAST MEDICAL HISTORY Diagnosis Date Benign hypertension 09/03/2017 Hypothyroid Rosacea PAST SURGICAL HISTORY Procedure Laterality Date SECTION HX 01/2013 [facility] CHOLECYSTECTOMY 2009 [facility] HERNIA REPAIR HX 11/2013 Dr Hurtado - [facility] LAPAROSCOPY REPAIR INCISIONAL HERNIA REDUCIBLE 07/2013 [facility] FAMILY HISTORY Problem Relation Age of Onset Depression Mother Diabetes Father Cancer Father liver Hypertension Father Blood Clots Sister Hypertension Sister Alcohol abuse Sister Stroke Maternal Grandmother Blindness Maternal Grandmother Hypertension Maternal Grandmother Diabetes Maternal Grandmother Hypertension Maternal Grandfather Diabetes Maternal Grandfather Heart Attack Paternal Grandmother Hypertension Paternal Grandfather Stroke Paternal Grandfather Diabetes Paternal Grandfather Social History Tobacco Use Smoking status: Never Smokeless tobacco: Never Vaping Use Vaping status: Never Used Substance Use Topics Alcohol use: Not Currently Comment: rarely Drug use: No Past medical history, appointments, medications, allergies reviewed. Pertinent Lab/Diagnostic Studies are reviewed and discussed today Current Outpatient Medications: buPROPion XL (WELLBUTRIN XL) 300 mg 24 hr tablet SYNTHROID 100 mcg tablet Azelaic Acid (FINACEA) 15 % gel dasatinib (SPRYCEL) 100 mg tablet amLODIPine (NORVASC) 2.5 mg tablet lisinopril-hydroCHLORO thiazide (ZESTORETIC) 20-12.5 mg per tablet acetaminophen (TYLENOL EXTRA STRENGTH) 500 mg tablet Cholecalciferol, Vitamin D3, 2,000 unit cap progesterone micronized (PROMETRIUM) 200 mg capsule Review of Systems CONSTITUTIONAL: No fevers, (more content not included)... Normal [facility] BCR/ABL1 P210 %IS PANELon BCR/ABL1 P210 %IS 0.5932 Normal [facility] Comment on above: Order Comment: Speci men Type: BLOOD SPECIMENOrdering Facility: [facility] Address: [address] [place] [address] Performed By: #### P 210P ####[facility] LIMSCLIA [id number] [place] [address] [place]#### 210ISBP ####[facility] LABCLIA [id number] [place] [address] [place] BCR/ABL1 P210 MR 2.23 Normal [facility] Comment on above: Order Comment: Speci men Type: BLOOD SPECIMENOrdering Facility: [facility] Address: [address] [place] [address] Performed By: #### P 210P ####[facility] LIMSCLIA [id number] [place] [address] [place]#### 210ISBP ####[facility] LABCLIA [id number] [address] [place] BCR/ABL1 P210 QUANTITATIVE P CR BLOODon 09-06-2024 BCR/ABL1 P210 INTERPRETATION Normal [facility] Comment on above: Order Comment: Speci men Type: BLOOD SPECIMENOrdering Facility: [facility] Address: [address] [place] [address] Result Comment: BCR/ ABL1 p210 Quantitative PCR Laboratory Accession Number: [id number] Result: DETECTED MR: 2.23 %IS: 0.5932 Interpretation: p210 BCR/ABL1 transcripts were detected. Quantitative results are expressed on the International Scale (IS) and a log molecular response (MR) is calculated. On this scale, a value of less than or equal to 0.1% corresponds to a major molecular response (MMR or MR3.0). Methodology: [employer] ([employer]) QuantideX BCR/ABL IS assay is an FDA-cleared in vitro diagnostic test for the quantitation of BCR/ABL1 and ABL1 transcripts in total RNA from whole blood of diagnosed t(9;22) positive chronic myeloid leukemia patients expressing e13a2 and/or e14a2 fusion transcripts. This test does not detect p190 (e1a2) or other rare BCR/ABL1 transcripts. This assay has a limit of quantification and limit of detection of 0.002% IS or MR4.7. References: 1) Gisselle et al, Blood 2006;108:28-37; Jacobo et al, Leukemia 2015;29:999-1003 As reviewed by Rodger Motley MD, PhD Performed By: #### P 210P ####[facility] LIMSCLIA [id number] [place] [address] [place]#### 210ISBP ####[facility] LABCLIA [id number] [place] [address] [place] CBC W Auto Differential pane l (Bld)on 09-06-2024 Basophils (Bld) [#/Vol] 0.06 10*3/uL Normal <0.11 [facility] Comment on above: Order Comment: Speci men Type: BLOOD SPECIMENOrdering Facility: [facility] Address: [address] [place] [address] Performed By: #### 5 7021-8 ####[facility] MILLWNCLIA [id number] [place] [address] [place] Basophils/100 WBC (Bld) 0.8 % Normal [facility] Comment on above: Order Comment: Speci men Type: BLOOD SPECIMENOrdering Facility: [facility] Address: [address] [place] [address] Performed By: #### 5 7021-8 ####[facility]ITALDEVLIA [id number] [place] [address] [place] Differential cell count method Nom (Bld) Auto Normal [facility] Comment on above: Order Comment: Speci men Type: BLOOD SPECIMENOrdering Facility: [facility] Address: [address] [place] [address] Performed By: #### 5 7021-8 ####[facility]AA [id number] [place] [address] [place] Eosinophils (Bld) [#/Vol] 0.26 10*3/uL Normal <0.46 [facility] Comment on above: Order Comment: Speci men Type: BLOOD SPECIMENOrdering Facility: [facility] Address: [address] [place] [address] Performed By: #### 5 7021-8 ####[facility]LIA [id number] [place] [address] [place] Eosinophils/100 WBC (Bld) 3.6 % Normal [facility] Comment on above: Order Comment: Speci men Type: BLOOD SPECIMENOrdering Facility: [facility] Address: [address] [place] [address] Performed By: #### 5 7021-8 ####[facility] COLUMBUSLIA [id number] [place] [address] [place] Erythrocyte distribution width (RBC) [Ratio] 13.5 % Normal 11.5-15.0 [facility] Comment on above: Order Comment: Speci men Type: BLOOD SPECIMENOrdering Facility: [facility] Address: [address] [place] [address] Performed By: #### 5 7021-8 ####[facility] [id number] [place] [address] [place] Hematocrit (Bld) [Volume fraction] 38.7 % Normal 36.0-46.0 [facility] Comment on above: Order Comment: Speci men Type: BLOOD SPECIMENOrdering Facility: [facility] Address: [address] [place] [address] Performed By: #### 5 7021-8 ####[facility] [id number] [place] [address] [place] Hemoglobin (Bld) [Mass/Vol] 13.7 g/dL Normal 11.5-15.5 [facility] Comment on above: Order Comment: Speci men Type: BLOOD SPECIMENOrdering Facility: [facility] Address: [address] [place] [address] Performed By: #### 5 7021-8 ####[facility] [id number] [place] [address] [place] Immature granulocytes (Bld) [#/Vol] 10*3/uL Normal <0.10 [facility] Comment on above: Order Comment: Speci men Type: BLOOD SPECIMENOrdering Facility: [facility] Address: [address] [place] [address] Performed By: #### 5 7021-8 ####[facility] [id number] [place] [address] [place] Immature granulocytes/100 WBC (Bld) 0.3 % Normal [facility] Comment on above: Order Comment: Speci men Type: BLOOD SPECIMENOrdering Facility: [facility] Address: [address] [place] [address] Performed By: #### 5 7021-8 ####[facility] JOLENEWNCLIA [id number] [place] [address] [place] Lymphocytes (Bld) [#/Vol] 2.12 10*3/uL Normal 1.00-4.00 [facility] Comment on above: Order Comment: Speci men Type: BLOOD SPECIMENOrdering Facility: [facility] Address: [address] [place] [address] Performed By: #### 5 7021-8 ####[facility]ITALDEVLIA [id number] [place] [address] [place] Lymphocytes/100 WBC (Bld) 29.2 % Normal [facility] Comment on above: Order Comment: Speci men Type: BLOOD SPECIMENOrdering Facility: [facility] Address: [address] [place] [address] Performed By: #### 5 7021-8 ####[facility]LIA [id number] [place] [address] [place] MCH (RBC) [Entitic mass] 33.2 pg Normal 26.0-34.0 [facility] Comment on above: Order Comment: Speci men Type: BLOOD SPECIMENOrdering Facility: [facility] Address: [address] [place] [address] Performed By: #### 5 7021-8 ####[facility]STITUTEWNCLIA [id number] [place] [address] [place] MCHC (RBC) [Mass/Vol] 35.4 g/dL Normal 30.5-36.0 [facility] Comment on above: Order Comment: Speci men Type: BLOOD SPECIMENOrdering Facility: [facility] Address: [address] [place] [address] Performed By: #### 5 7021-8 ####[facility]LIA [id number] [place] [address] [place] MCV (RBC) [Entitic vol] 93.7 fL Normal 80.0-100.0 [facility] Comment on above: Order Comment: Speci men Type: BLOOD SPECIMENOrdering Facility: [facility] Address: [address] [place] [address] Performed By: #### 5 7021-8 ####[facility] [id number] [place] [address] [place] Monocytes (Bld) [#/Vol] 0.51 10*3/uL Normal <0.87 [facility] Comment on above: Order Comment: Speci men Type: BLOOD SPECIMENOrdering Facility: [facility] Address: [address] [place] [address] Performed By: #### 5 7021-8 ####[facility] [id number] [place] [address] [place] Monocytes/100 WBC (Bld) 7.0 % Normal [facility] Comment on above: Order Comment: Speci men Type: BLOOD SPECIMENOrdering Facility: [facility] Address: [address] [place] [address] Performed By: #### 5 7021-8 ####[facility] [id number] [place] [address] [place] Neutrophils (Bld) [#/Vol] 4.29 10*3/uL Normal 1.45-7.50 [facility] Comment on above: Order Comment: Speci men Type: BLOOD SPECIMENOrdering Facility: [facility] Address: [address] [place] [address] Performed By: #### 5 7021-8 ####[facility]LIA [id number] [place] [address] [place] Neutrophils/100 WBC (Bld) 59.1 % Normal [facility] Comment on above: Order Comment: Speci men Type: BLOOD SPECIMENOrdering Facility: [facility] Address: [address] [place] [address] Performed By: #### 5 7021-8 ####[facility] [id number] [place] [address] [place] Nucleated RBC (Bld) [#/Vol] 10*3/uL Normal <0.01 [facility] Comment on above: Order Comment: Speci men Type: BLOOD SPECIMENOrdering Facility: [facility] Address: [address] [place] [address] Performed By: #### 5 7021-8 ####[facility] [id number] [place] [address] [place] Nucleated RBC/100 WBC (Bld) [Ratio] 0.0 /100 WBC Normal [facility] Comment on above: Order Comment: Speci men Type: BLOOD SPECIMENOrdering Facility: [facility] Address: [address] [place] [address] Performed By: #### 5 7021-8 ####[facility] [id number] [place] [address] [place] Platelet mean volume (Bld) [Entitic vol] 9.5 fL Normal 9.0-12.7 [facility] Comment on above: Order Comment: Speci men Type: BLOOD SPECIMENOrdering Facility: [facility] Address: [address] [place] [address] Performed By: #### 5 7021-8 ####[facility] [id number] [place] [address] [place] Platelets (Bld) [#/Vol] 166 10*3/uL Normal 150-400 [facility] Comment on above: Order Comment: Speci men Type: BLOOD SPECIMENOrdering Facility: [facility] Address: [address] [place] [address] Performed By: #### 5 7021-8 ####[facility] ESPAÑANCLIA [id number] [place] [address] [place] RBC (Bld) [#/Vol] 4.13 10*6/uL Normal 3.90-5.20 [facility] Comment on above: Order Comment: Speci men Type: BLOOD SPECIMENOrdering Facility: [facility] Address: [address] [place] [address] Performed By: #### 5 7021-8 ####[facility] ESPAÑANCLIA [id number] [place] [address] [place] WBC (Bld) [#/Vol] 7.26 10*3/uL Normal 3.70-11.00 [facility] Comment on above: Order Comment: Speci men Type: BLOOD SPECIMENOrdering Facility: [facility] Address: [address] [place] [address] Performed By: #### 5 7021-8 ####[facility] ESPAÑANCLIA [id number] [place] [address] [place] CNTHERAPYon 09-06-2024 CNTHERAPY OT/PT/Speech Visit (PTWS) ROSALINDA RUSSO ([id number]) 1970 F Date Time Provider Department 09/06/24 1:15 PM NEGRO DAWSON PTALKSHMI Date Time Provider Department Center 09/06/2024 1:15 PM [id number], SEAN PTLAKSHMI [place] Reason for Visit: PT Discharge [752] Primary Visit Diagnosis:Degeneration of intervertebral disc of lumbar region, unspecified whether pain present [M51.369] Other Visit Diagnoses:Thoracogenic scoliosis, unspecified spinal region [M41.30] Chronic bilateral low back pain, unspecified whether sciatica present [M54.50, G89.29] Allergies As of Date: 09/06/2024 (No Known Allergies) Date Reviewed: 09/05/2024 Reviewed by: Marga Crowe MD - Fully Assessed Prescriptions as of 09/06/2024 - buPROPion XL (WELLBUTRIN XL) 300 mg 24 hr tablet Take 1 tablet by mouth once daily. - progesterone micronized (PROMETRIUM) 200 mg capsule Take 1 capsule by mouth daily at bedtime for 7 days. - SYNTHROID 100 mcg tablet Take 1 tablet by mouth once daily. Take on empty stomach - Azelaic Acid (FINACEA) 15 % gel Apply 1 application to affected area two times a day. - dasatinib (SPRYCEL) 100 mg tablet Take 1 tablet (100 mg) by mouth once daily. - amLODIPine (NORVASC) 2.5 mg tablet Take 1 tablet by mouth once daily. - lisinopril-hydroCHLORO thiazide (ZESTORETIC) 20-12.5 mg per tablet Take 1 tablet by mouth once daily. - acetaminophen (TYLENOL EXTRA STRENGTH) 500 mg tablet Take 1,000 mg by mouth every 8 hours as needed. - Cholecalciferol, Vitamin D3, 2,000 unit cap Take 1 tablet by mouth once daily. Commercial Estimator: Addendum Therapy (PT/OT/Speech/Resp) ID: [id number] 09/06/2024 1:35 PM Author: NEGRO DAWSON Signed by NEGRO DAWSON PT on 09/06/2024 at 1:36 PM * * * This document replaces document [id number] * * * Document text: Program_ID:[id number] Access Code: [email or web address] URL: [email or web address] Date: 09-06-2024 Prepared By: Negro Dawson Program Notes Exercises - Shoulder External Rotation and Scapular Retraction with Resistance - 1 x daily - 7 x weekly - 3 sets - 10 reps - Shoulder extension with resistance - Neutral - 1 x daily - 7 x weekly - 3 sets - 10 reps - Standing Shoulder Diagonal Horizontal Abduction 60/120 Degrees with Resistance - 1 x daily - 7 x weekly - 3 sets - 10 reps - Standing Shoulder Horizontal Abduction with Resistance - 1 x daily - 7 x weekly - 3 sets - 10 reps - Quadruped Transversus Abdominis Bracing - 1 x daily - 7 x weekly - 3 sets - 10 reps - Quadruped Pelvic Floor Contraction with Opposite Arm and Leg Lift - 1 x daily - 7 x weekly - 3 sets - 10 reps - Primal Push Up - 1 x daily - 7 x weekly - 3 sets - 10 reps - Primal Push Up with Shoulder Taps - 1 x daily - 7 x weekly - 3 sets - 10 reps - Primal Push Up with Alternating Leg Extensions - 1 x daily - 7 x weekly - 3 sets - 10 reps - Supine Bug with Leg Extension - 1 x daily - 7 x weekly - 3 sets - 10 reps - Standing Anti-Rotation Press with Anchored Resistance - 1 x daily - 7 x weekly - 3 sets - 10 reps - Stir the Pot - 1 x daily - 7 x weekly - 3 sets - 10 reps -- Normal [facility] Comprehensive metabolic 2000 panelon 09-06-2024 Albumin [Mass/Vol] 4.2 g/dL Normal 3.9-4.9 [facility] Comment on above: Order Comment: Speci men Type: BLOOD SPECIMENOrdering Facility: [facility] Address: [address] [place] [address] Performed By: #### 2 4323-8 ####[facility] RAMIREZ [id number] [place] [address] [place] ALP [Catalytic activity/Vol] 47 U/L Normal 34-123 [facility] Comment on above: Order Comment: Speci men Type: BLOOD SPECIMENOrdering Facility: [facility] Address: [address] [place] [address] Performed By: #### 2 4323-8 ####[facility] MILLTOWNCLIA [id number] [place] [address] [place] ALT [Catalytic activity/Vol] 21 U/L Normal 7-38 [facility] Comment on above: Order Comment: Speci men Type: BLOOD SPECIMENOrdering Facility: [facility] Address: [address] [place] [address] Performed By: #### 2 4323-8 ####[facility] MILLTOWNCLIA [id number] [place] [address] [place] Anion gap [Moles/Vol] 8 mmol/L Normal 8-15 [facility] Comment on above: Order Comment: Speci men Type: BLOOD SPECIMENOrdering Facility: [facility] Address: [address] [place] [address] Performed By: #### 2 4323-8 ####[facility] MILLTOWNCLIA [id number] [place] [address] [place] AST [Catalytic activity/Vol] 21 U/L Normal 13-35 [facility] Comment on above: Order Comment: Speci men Type: BLOOD SPECIMENOrdering Facility: [facility] Address: [address] [place] [address] Performed By: #### 2 4323-8 ####[facility] MILLTOWNCLIA [id number] [place] [address] [place] Bilirubin [Mass/Vol] 0.3 mg/dL Normal 0.2-1.3 [facility] Comment on above: Order Comment: Speci men Type: BLOOD SPECIMENOrdering Facility: [facility] Address: [address] [place] [address] Performed By: #### 2 4323-8 ####[facility] MILLTOWNCLIA [id number] [place] [address] [place] Calcium [Mass/Vol] 9.4 mg/dL Normal 8.5-10.2 [facility] Comment on above: Order Comment: Speci men Type: BLOOD SPECIMENOrdering Facility: [facility] Address: [address] [place] [address] Performed By: #### 2 4323-8 ####[facility] MILLTOWNCLIA [id number] [place] [address] [place] Chloride [Moles/Vol] 102 mmol/L Normal 98-107 [facility] Comment on above: Order Comment: Speci men Type: BLOOD SPECIMENOrdering Facility: [facility] Address: [address] [place] [address] Performed By: #### 2 4323-8 ####[facility]STITUTEWNCLIA [id number] [place] [address] [place] CO2 [Moles/Vol] 30 mmol/L Normal 22-30 [facility] Comment on above: Order Comment: Speci men Type: BLOOD SPECIMENOrdering Facility: [facility] Address: [address] [place] [address] Performed By: #### 2 4323-8 ####[facility] MILLTOWNCLIA [id number] [place] [address] [place] Creatinine [Mass/Vol] 0.76 mg/dL Normal 0.58-0.96 [facility] Comment on above: Order Comment: Speci men Type: BLOOD SPECIMENOrdering Facility: [facility] Address: [address] [place] [address] Performed By: #### 2 4323-8 ####[facility] MILLTOWNCLIA [id number] [place] [address] [place] Creatinine and Glomerular filtration rate.predicted panel (S/P/Bld) 94 mL/min/1.73m??? Normal >=60 [facility] Comment on above: Order Comment: Ryan rangel Type: BLOOD SPECIMENOrdering Facility: [facility] Address: [address] [place] [address] Result Comment: Angie mated Glomerular Filtration Rate (eGFR) is calculated using the 2020 CKD-EPI creatinine equation. This equation utilizes serum creatinine, sex, and age as parameters. The creatinine assay has traceable calibration to isotope dilution-mass spectrometry. Refer to KDIGO guidelines for clinical interpretation. In patients with unstable renal function, e.g. those with acute kidney injury, the eGFR may not accurately reflect actual GFR. Performed By: #### 2 4323-8 ####[facility] [id number] [place] [address] [place] Glucose [Mass/Vol] 97 mg/dL Normal 74-99 [facility] Comment on above: Order Comment: Ryan rangel Type: BLOOD SPECIMENOrdering Facility: [facility] Address: [address] [place] [address] Result Comment: The [place] Diabetes Association (ADA) provides guidance for cutoff values for fasting glucose and random glucose. The ADA defines fasting as no caloric intake for at least 8 hours. Fasting plasma glucose results between 100 to 125 mg/dL indicate increased risk for diabetes (prediabetes). Fasting plasma glucose results greater than or equal to 126 mg/dL meet the criteria for diagnosis of diabetes. In the absence of unequivocal hyperglycemia, results should be confirmed by repeat testing. In a patient with classic symptoms of hyperglycemia or hyperglycemic crisis, random plasma glucose results greater than or equal to 200 mg/dL meet the criteria for diagnosis of diabetes. Reference: Standards of Medical Care in Diabetes 2016, [place] [employer]. Diabetes Care. 2016.39(Suppl 1). Performed By: #### 2 4323-8 ####[facility] [id number] [place] [address] [place] Potassium [Moles/Vol] 3.7 mmol/L Normal 3.7-5.1 [facility] Comment on above: Order Comment: Ryan rangel Type: BLOOD SPECIMENOrdering Facility: [facility] Address: [address] [place] [address] Performed By: #### 2 4323-8 ####[facility]STITUTEWNCLIA [id number] [place] [address] [place] Protein [Mass/Vol] 6.1 g/dL Low 6.3-8.0 [facility] Comment on above: Order Comment: Speci men Type: BLOOD SPECIMENOrdering Facility: [facility] Address: [address] [place] [address] Performed By: #### 2 4323-8 ####[facility]ITAL[facility]CL[facility] [id number] [address] [place] Sodium [Moles/Vol] 140 mmol/L Normal 136-144 [facility] Comment on above: Order Comment: Speci men Type: BLOOD SPECIMENOrdering Facility: [facility] Address: [address] [place] [address] Performed By: #### 2 4323-8 ####[facility]ITAL[facility]CLIA [id number] [place] [address] [place] Urea nitrogen [Mass/Vol] 14 mg/dL Normal 7-21 [facility] Comment on above: Order Comment: Speci men Type: BLOOD SPECIMENOrdering Facility: [facility] Address: [address] [place] [address] Performed By: #### 2 4323-8 ####[facility]STITUTEWNCLIA [id number] [address] [place] THERAPY NTon 09-06-2024 THERAPY NT HNO ID: [id number] Author: NEGRO DAWSON PT Service: ? Author Type: Physical Therapist Type: Therapy (PT/OT/Speech/Resp) Filed: 09/06/2024 13:36 Note Text: Program_ID:[id number] Access Code: [email or web address] URL: [email or web address] Date: 09-06-2024 Prepared By: Negro Dawson Program Notes Exercises - Shoulder External Rotation and Scapular Retraction with Resistance - 1 x daily - 7 x weekly - 3 sets - 10 reps - Shoulder extension with resistance - Neutral - 1 x daily - 7 x weekly - 3 sets - 10 reps - Standing Shoulder Diagonal Horizontal Abduction 60/120 Degrees with Resistance - 1 x daily - 7 x weekly - 3 sets - 10 reps - Standing Shoulder Horizontal Abduction with Resistance - 1 x daily - 7 x weekly - 3 sets - 10 reps - Quadruped Transversus Abdominis Bracing - 1 x daily - 7 x weekly - 3 sets - 10 reps - Quadruped Pelvic Floor Contraction with Opposite Arm and Leg Lift - 1 x daily - 7 x weekly - 3 sets - 10 reps - Primal Push Up - 1 x daily - 7 x weekly - 3 sets - 10 reps - Primal Push Up with Shoulder Taps - 1 x daily - 7 x weekly - 3 sets - 10 reps - Primal Push Up with Alternating Leg Extensions - 1 x daily - 7 x weekly - 3 sets - 10 reps - Supine Bug with Leg Extension - 1 x daily - 7 x weekly - 3 sets - 10 reps - Standing Anti-Rotation Press with Anchored Resistance - 1 x daily - 7 x weekly - 3 sets - 10 reps - Stir the Pot - 1 x daily - 7 x weekly - 3 sets - 10 reps Normal [facility] CNOVon 09-05-2024 CNOV Office Visit (OBGYWM ) ROSALINDA RUSSO ([id number]) 1970 F Date Time Provider Department 09/05/24 2:40 PM MARGA CROWE OBGYWM During your visit today, we recorded the following information about you: Blood pressure Weight Last Period 126/72 75.5 kg 10/14/23 Marga Crowe MD 09/06/2024 10:40 AM Signed Rosalinda Russo is a 54 year old female who presents for problem visit for irreg menses for a couple of years. HPI: 54 YOF notes she had some hot flashes a couple of years ago and was dx w/ CML. Not as many hot flashes now. No vaginal dryness. LMP October 2023 and they were regular up until then. Some spotting intermittently, no pain. Had pelvic US as recommended by her previous pt sitter in [place] and now moving care here so here to establish. Had hysteroscopy [facility] in 2022, disordered proliferative endometrium and polyp. Was on low dose control for a while after that. Here for discussion of options. OB History T3 L2 SAB0 IAB0 Ectopic0 Multiple0 Live Births2 [place] History LMP: 10/14/2023 (Approximate), Premenopausal Age at Menarche: 13 Age at First : Age at Menopause: [place] History Comments: Sexual Activity: Yes; Male Contraception: No contraception data on record PAST MEDICAL HISTORY Diagnosis Date Benign hypertension 09/03/2017 Hypothyroid Rosacea PAST SURGICAL HISTORY Procedure Laterality Date SECTION HX 01/2013 [facility] CHOLECYSTECTOMY 2009 [facility] HERNIA REPAIR HX 11/2013 [facility] LAPAROSCOPY REPAIR INCISIONAL HERNIA REDUCIBLE 07/2013 [facility] FAMILY HISTORY Problem Relation Age of Onset Depression Mother Diabetes Father Cancer Father liver Hypertension Father Blood Clots Sister Hypertension Sister Alcohol abuse Sister Stroke Maternal Grandmother Blindness Maternal Grandmother Hypertension Maternal Grandmother Diabetes Maternal Grandmother Hypertension Maternal Grandfather Diabetes Maternal Grandfather Heart Attack Paternal Grandmother Hypertension Paternal Grandfather Stroke Paternal Grandfather Diabetes Paternal Grandfather Social History Tobacco Use Smoking status: Never Smokeless tobacco: Never Vaping Use Vaping status: Never Used Substance Use Topics Alcohol use: Not Currently Comment: rarely Drug use: No Current Outpatient Medications Medication Sig buPROPion XL (WELLBUTRIN XL) 300 mg 24 hr tablet Take 1 tablet by mouth once daily. SYNTHROID 100 mcg tablet Take 1 tablet by mouth once daily. Take on empty stomach Azelaic Acid (FINACEA) 15 % gel Apply 1 application to affected area two times a day. dasatinib (SPRYCEL) 100 mg tablet Take 1 tablet (100 mg) by mouth once daily. amLODIPine (NORVASC) 2.5 mg tablet Take 1 tablet by mouth once daily. lisinopril-hydroCHLORO thiazide (ZESTORETIC) 20-12.5 mg per tablet Take 1 tablet by mouth once daily. acetaminophen (TYLENOL EXTRA STRENGTH) 500 mg tablet Take 1,000 mg by mouth every 8 hours as needed. Cholecalciferol, Vitamin D3, 2,000 unit cap Take 1 tablet by mouth once daily. No current facility-administered medications for this visit. Allergies As of Date: 09/05/2024 (No Known Allergies) Fully Assessed 09/05/2024 REVIAllergies and current medication updated:Yes SENSITIVE EXAM: Sensitive exam not performed. EXAM: BP 126/72 Wt 166 lb 6.4 oz (75.5kg) LMP 10/14/2023 GENERAL: pleasant, female in no apparent distress ASSESSMENT AND PLAN: Assessment AND Plan Endometrial thickening on ultrasound Orders: CONSULT TO GYNECOLOGY ENDOMETRIAL BIOPSY PELVIC US [facility]; Future Ovarian cyst, right Orders: PELVIC US [facility]; Future D/w her recommend progesterone challenge, repeat US and EMB. May need cyclic progesterone (hasn't tolerated progesteorne well in the past vs low dose combined hormonal contraceptives to cycle as likely oligoovulatory due to perimenopause. Questions answered. She agrees w/ plan. MD Madison Calderon Lorinda, LPN 09/05/2024 2:41 PM Signed YOUR RECOVERY After your biopsy you may have: Vaginal bleeding (less than a normal menstrual period) Mild cramping Do NOT put anything in the vagina for 1 week after your endometrial biopsy. This includes: tampons douches and refraining from having sexual intercourse If you have any discomfort, you may take an over the counter pain medication (motrin, advil, ibuprofen, tylenol, etc). If this does not relieve your discomfort, contact the office. It is okay to wear a sanitary pad until the discharge and spotting stops. RISKS Although problems seldom occur with endometrial biopsies, there can be some complications. You may feel faint during and shortly after the procedure as well as have some bleeding after the procedure. There is also a risk of in (more content not included)... Normal [facility] CBC W/Diff, Automatedon 08-10 PLT MORPH LARGE Normal [facility] Comment on above: Performed By: #### L 500.4050, L501.4020, L100.0100 #### [facility] [address] [place], [address] PLT EST SLT DEC Normal ADEQ [facility] Comment on above: Performed By: #### L 500.4050, L501.4020, L100.0100 #### [facility] [address] [place], [address] SMEAR COMMENT SCANNED Normal [facility] Comment on above: Performed By: #### L 500.4050, L501.4020, L100.0100 #### [facility] [address] [place], [address] Chest 1 View (Portable)on Chest 1 View (Portable) [facility] Imaging Services [address] [place] [address] Chest 1 View (Portable) MR#: [id number] Acct: [id number] Name: ROSALINDA BARGER Rep #: [id number] : 1970 F 54 From: Erika Plata PCP: Dr. Eden Petersen MD Status: REG ER Study: Chest 1 View (Portable) Date of Exam: 08/26/24 Exam# [id number] Ordering Dr: Steve Welch MD [id number] INDICATION: Pain left side shoulder and chest pain EXAMINATION/TECHNIQUE: X-RAY - XR Chest 1 View AP portable. 3:28 AM COMPARISON: Prior study dated: 04/01/2023 FINDINGS: LINES/DEVICES: None. LUNGS: No consolidation. No pneumothorax. MEDIASTINUM: Unremarkable. CARDIAC SILHOUETTE: Not enlarged. BONES AND SOFT TISSUES: No acute abnormalities. RAD/Chest 1 View (Portable) IMPRESSION: No evidence of active intrathoracic disease. Electronically Signed: Erika Lemus MD at 4:09 EST , CC: Dr. Steve Welch MD; Dr. Eden Petersen MD Steel Plate Caulker: Signed Normal [facility] Comprehensive Metabolic Prof ilon 08-26-2024 Albumin [Mass/Vol] 3.6 g/dL Normal 3.2-5.0 [facility] Comment on above: Order Comment: 'TROP ' Serial specimen #1, #2 or #3: 1 Performed By: #### L 500.4050, L501.4020, L100.0100 #### [facility] [address] [place], [address] Albumin/Globulin [Mass ratio] 1.3 {ratio} Normal 0.9-2.4 [facility] Comment on above: Order Comment: 'TROP ' Serial specimen #1, #2 or #3: 1 Performed By: #### L 500.4050, L501.4020, L100.0100 #### [facility] [address] [place], [address] ALK P 54 U/L Normal 45-117 [facility] Comment on above: Order Comment: 'TROP ' Serial specimen #1, #2 or #3: 1 Performed By: #### L 500.4050, L501.4020, L100.0100 #### [facility] [address] [place], [address] ALT [Catalytic activity/Vol] 27 U/L Normal 13-56 [facility] Comment on above: Order Comment: 'TROP ' Serial specimen #1, #2 or #3: 1 Performed By: #### L 500.4050, L501.4020, L100.0100 #### [facility] [address] [place], [address] AST [Catalytic activity/Vol] 18 U/L Normal 15-37 [facility] Comment on above: Order Comment: 'TROP ' Serial specimen #1, #2 or #3: 1 Performed By: #### L 500.4050, L501.4020, L100.0100 #### [facility] [address] [place], [address] Bilirubin [Mass/Vol] 0.30 mg/dL Normal 0.20-1.00 [facility] Comment on above: Order Comment: 'TROP ' Serial specimen #1, #2 or #3: 1 Result Comment: For patients on eltrombopag therapy, use of Dimension Blue TBIL is not recommended. Performed By: #### L 500.4050, L501.4020, L100.0100 #### [facility] [address] [place], [address] BUN/CRE 25.7 RATIO High 10-20 [facility] Comment on above: Order Comment: 'TROP ' Serial specimen #1, #2 or #3: 1 Performed By: #### L 500.4050, L501.4020, L100.0100 #### [facility] [address] [place], [address] CA,Total 8.7 mg/dL Normal 8.5-10.1 [facility] Comment on above: Order Comment: 'TROP ' Serial specimen #1, #2 or #3: 1 Performed By: #### L 500.4050, L501.4020, L100.0100 #### [facility] [address] [place], [address] Chloride [Moles/Vol] 107 mmol/L Normal 98-107 [facility] Comment on above: Order Comment: 'TROP ' Serial specimen #1, #2 or #3: 1 Performed By: #### L 500.4050, L501.4020, L100.0100 #### [facility] [address] [place], [address] CO2 [Moles/Vol] 24.0 mmol/L Normal 21.0-32.0 [facility] Comment on above: Order Comment: 'TROP ' Serial specimen #1, #2 or #3: 1 Performed By: #### L 500.4050, L501.4020, L100.0100 #### [facility] [address] [place], [address] Creatinine [Mass/Vol] 0.74 mg/dL Normal 0.55-1.02 [facility] Comment on above: Order Comment: 'TROP ' Serial specimen #1, #2 or #3: 1 Result Comment: The validity of the calculated GFR GFRAA in patients over 70 years has not been determined. Clinical correlation is essential. Performed By: #### L 500.4050, L501.4020, L100.0100 #### [facility] [address] [place], [address] ECRCL 92.38 ml/min Normal [facility] Comment on above: Order Comment: 'TROP ' Serial specimen #1, #2 or #3: 1 Performed By: #### L 500.4050, L501.4020, L100.0100 #### [facility] [address] [place], [address] EST GFR - AA 106 mL/min Normal >60 [facility] Comment on above: Order Comment: 'TROP ' Serial specimen #1, #2 or #3: 1 Result Comment: Afri can [place] GFR Calc Performed By: #### L 500.4050, L501.4020, L100.0100 #### [facility] [address] [place], [address] GAP 6 Normal 5-15 [facility] Comment on above: Order Comment: 'TROP ' Serial specimen #1, #2 or #3: 1 Performed By: #### L 500.4050, L501.4020, L100.0100 #### [facility] [address] [place], [address] GFR/1.73 sq M.predicted among non-blacks MDRD (S/P/Bld) [Vol rate/Area] 88 mL/min/{1.73_m2} Normal >60 [facility] Comment on above: Order Comment: 'TROP ' Serial specimen #1, #2 or #3: 1 Result Comment: Non- GFR Calc Performed By: #### L 500.4050, L501.4020, L100.0100 #### [facility] [address] [place], [address] Globulin (S) [Mass/Vol] 2.7 g/dL Normal 2.2-4.2 [facility] Comment on above: Order Comment: 'TROP ' Serial specimen #1, #2 or #3: 1 Performed By: #### L 500.4050, L501.4020, L100.0100 #### [facility] [address] [place], [address] Glucose [Mass/Vol] 98 mg/dL Normal 74-106 [facility] Comment on above: Order Comment: 'TROP ' Serial specimen #1, #2 or #3: 1 Performed By: #### L 500.4050, L501.4020, L100.0100 #### [facility] [address] [place], [address] Potassium [Moles/Vol] 3.7 mmol/L Normal 3.5-5.1 [facility] Comment on above: Order Comment: 'TROP ' Serial specimen #1, #2 or #3: 1 Performed By: #### L 500.4050, L501.4020, L100.0100 #### [facility] [address] [place], [address] Sodium [Moles/Vol] 137 mmol/L Normal 136-145 [facility] Comment on above: Order Comment: 'TROP ' Serial specimen #1, #2 or #3: 1 Performed By: #### L 500.4050, L501.4020, L100.0100 #### [facility] [address], [address] T PROT 6.3 g/dL Low 6.4-8.2 [facility] Comment on above: Order Comment: 'TROP ' Serial specimen #1, #2 or #3: 1 Performed By: #### L 500.4050, L501.4020, L100.0100 #### [facility] [address] [place], [address] Urea nitrogen [Mass/Vol] 19 mg/dL High 7-18 [facility] Comment on above: Order Comment: 'TROP ' Serial specimen #1, #2 or #3: 1 Performed By: #### L 500.4050, L501.4020, L100.0100 #### [facility] [address], [address] Emergency Department Summary on 08-26-2024 Emergency Department Summary [facility] Medical Records Department [address] [place] [address] Emergency Department Summary 08/26/24 MR#: [id number] Acct: [id number] Name: ROSALINDA BARGER Rep #: [id number] : 1970 54 From: Steve Welch MD PCP: Dr. Eden Petersen MD Status:DEP ER Location: ED HPI History of Present Illness Chief Complaint: Other, Pain/Inj Narrative Narrative: 54-year-old female presents with her because of left arm pain that she has had since yesterday morning at around 5 AM. She describes soreness throughout the day. She is right-hand dominant. No fevers or chills. She states that she went to bed last evening, and awoke this morning around 2 AM, approximately an hour ago with pain in her left shoulder. It goes down her left arm. She states its pain in her left side. She is not sure if her leg feels weak as well. She has past medical history of CML. She takes oral chemotherapy. She states that the pain radiates from her neck down her left arm and into her fingers. She cannot really describe the feeling but states that its uncomfortable. [facility] Medical History CML (chronic myelocytic leukemia) Anxiety Hypothyroidism Hypertension Home Medications ???Medication ???Instructions ???Recorded ???Last Taken ???Type amlodipine 2.5 mg tablet 2.5 mg PO DAILY 08/26/24 Unknown History azelaic acid 15 % topical gel 1 applic topical BID PRN rosacia 08/26/24 Unknown History bupropion HCl 300 mg 24 hr tablet, 300 mg PO DAILY 08/26/24 Unknown History extended release cholecalciferol (vitamin D3) 50 50 mcg PO DAILY 08/26/24 Unknown History mcg (2,000 unit) capsule (Vitamin D3) dasatinib 100 mg tablet 100 mg PO DAILY 08/26/24 Unknown History levothyroxine 100 mcg tablet 100 mcg PO DAILY 08/26/24 Unknown History (Synthroid) lisinopril 20 1 tab PO DAILY 08/26/24 Unknown History mg-hydrochlorothiazide 12.5 mg tablet Allergy/AdvReac Type Severity Reaction Status Date / Time No Known Allergies Allergy Verified 08/26/24 02:54 Surgical History Hx of section Hx of hernia repair Hx of cholecystectomy Social History Smoking Status: Never smoker ROS ROS ED ROS Narrative Constitutional: No fever, no chills. HEENT: Mild neck pain. Pain radiating into left shoulder. Cardiovascular: No chest pain. No palpitations. No pedal edema. Respiratory: No cough, no shortness of breath. Abdominal: No abdominal pain. No nausea. No vomiting. Genitourinary: No dysuria. No hematuria. Musculoskeletal: Left arm pain. Neurologic: No headaches. No dizziness. No lightheadedness. Paresthesias of left arm. EXAM Physical Exam Narrative Exam Narrative: Afebrile. Vital signs noted. HEENT: Normocephalic. Atraumatic. PERRL, EOMI. Neck soft and supple. No point tenderness or step off. No trapezial pain. Cardiovascular: Regular rate and rhythm. No murmurs, rubs, or gallops appreciated. Respiratory: No tachypnea. Lungs clear to auscultation bilaterally. Gastrointestinal: Abdomen soft, nontender, with normoactive bowel sounds. No rebound or guarding. Neurological: Awake. Alert. Nonfocal, nonlateralizing. Able to raise arms above head without difficulty. Difficult to elicit bilateral patellar reflexes. Skin: No rash. Normal color. No pallor. Musculoskeletal: No pedal edema. Full range of motion extremities. Palpable radial pulse, left. Able to raise bilateral legs off bed. No crepitance of shoulder or arm, or chest wall. No apprec iable weakness bilateral lower extremities. Const Vital Signs: 08/26/24 02:54 08/26/24 03:00 08/26/24 04:26 Temperature 98.0 F 98.0 F Temperature Source Oral Pulse Rate 68 64 Respiratory Rate 18 18 Respiratory Effort Normal Non-Labored Respiratory Pattern Normal Blood Pressure 144/95 H 120/75 Blood Pressure Mean 111 90 Pulse Ox 100 97 Oxygen Delivery Method Room Air MDM MDM MDM Narrative Medical decision making narrative: Differential diagnosis includes but not limited to cervical radiculopathy versus musculoskeletal pain versus ACS versus stroke. I have very low suspicion for stroke because her neurological examination is nonfocal and nonlateralizing and essentially her stroke scale is 0. I favor cervical radiculopathy. She was given morphine and Toradol for pain as she took Tylenol without relief. EKG was obtained and interpreted by myself independently as normal sinus rhythm at 69 bpm without ectopy or acute ST changes. No STEMI. I reviewed her laboratory work and she has normal white count of 10.2, hemoglobin normal 12.6, platelet count low at 98. When compared to prior laboratories, she has (more content not included)... Normal [facility] L501.4020on 08-26-2024 TROPONIN-I HS 8 pg/mL Normal 3.0-54.0 [facility] Comment on above: Order Comment: 'TROP ' Serial specimen #1, #2 or #3: 1 Result Comment: Zohra licona Note: New Test Units and Gender Specific Reference Ranges. For more information see Policy Stat Procedure Blue High Sensitivity Troponin (TNIH) and attachments. Performed By: #### L 500.4050, L501.4020, L100.0100 #### [facility] [address] [place], [place], [address] Spine Cervical without Contr ason 08-26-2024 Spine Cervical without Contras [facility] Imaging Services [address] [place], [place] [address] Spine Cervical without Contras MR#: [id number] Acct: [id number] Name: ROSALINDA BARGER Rep #: [id number] : 1970 F 54 From: Erika Plata PCP: Dr. 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 2D reformatted images were reviewed. The protocol utilizes one or more of the following dose reduction techniques: automated exposure control, adjustment of mA and/or kV according to patient size,and/or use of iterative reconstruction technique. IV Contrast dosage and agent: None. RADIATION DOSAGE (If Supplied By Facility): CTDIvol = ( 21.88 ) mGy, DLP = ( 430.32 ) mGycm COMPARISON: No relevant prior comparison study available FINDINGS: ALIGNMENT: No subluxation. Straightening of the normal curvature. MINERALIZATION: Normal. VERTEBRAL BODIES: No fracture or acute abnormality. DISC SPACES: Disc space narrowing with osteophytes most pronounced at C3-4, and C5-C7. C6-7: Broad-based disc/osteophyte complex. Mild encroachment on the left neural foramen. POSTERIOR ELEMENTS: Mild facet arthropathy at multiple levels. SPINAL CANAL: Maintained. PARASPINAL SOFT TISSUES: Unremarkable. OTHER: None. CT/Spine Cervical without Contras IMPRESSION: No evidence of fracture or subluxation. Straightening of the normal curve may be due to positioning or muscle spasm. Degenerative changes with mild left neural foraminal encroachment at C6-7. MRI may be helpful for further evaluation. Electronically Signed: Erika Lemus MD at 4:17 EST , CC: Dr. Steve Welch MD; Dr. Eden Petersen MD Steel Plate Caulker: Signed Normal [facility] 08-17-2024 HALIMA Telephone (RUTH) ROSALINDA RUSSO ([id number]) 1970 F Date Time Provider Department 08/17/24 PRINCE URIBE During your visit today, we recorded the following information about you: Demetra Butler LPN 08/17/2024 8:23 AM Signed Prior Auth for dominique completed, approved, and scanned into chart. Demetra Butler LPN Allergies As of Date: 08/17/2024 (No Known Allergies) Date Reviewed: 06/21/2024 Reviewed by: Marisela Badlerrama MA - Fully Assessed Reason for Visit: insurance approval [Other] Prescriptions as of 08/17/2024 - SYNTHROID 100 mcg tablet Take 1 tablet by mouth once daily. Take on empty stomach - Azelaic Acid (FINACEA) 15 % gel Apply 1 application to affected area two times a day. - dasatinib (SPRYCEL) 100 mg tablet Take 1 tablet (100 mg) by mouth once daily. - amLODIPine (NORVASC) 2.5 mg tablet Take 1 tablet by mouth once daily. - lisinopril-hydroCHLORO thiazide (ZESTORETIC) 20-12.5 mg per tablet Take 1 tablet by mouth once daily. - buPROPion XL (WELLBUTRIN XL) 300 mg 24 hr tablet Take 1 tablet by mouth once daily. - acetaminophen (TYLENOL EXTRA STRENGTH) 500 mg tablet Take 1,000 mg by mouth every 8 hours as needed. - Cholecalciferol, Vitamin D3, 2,000 unit cap Take 1 tablet by mouth once daily. Problem List As Of Date 08/17/2024 Noted Resolved Acquired hypothyroidism [E03.9] 11/16/2015 Acne rosacea [L71.9] 12/14/2015 Obesity (BMI 30.0-34.9) [E66.811] 03/13/2017 09/10/2022 Benign hypertension [I10] 09/03/2017 Scoliosis [M41.9] 07/29/2024 Degeneration of intervertebral disc of lumbar r*07/29/2024 Chronic bilateral back pain [M54.9, G89.29] 07/29/2024 Encounter Status:Closed by DEMETRA BUTLER on 08/17/24 [facility] CNTHERAPYon 07-28-2024 CNTHERAPY OT/PT/Speech Visit (PTWS) ROSALINDA RUSSO ([id number]) 1970 F Date Time Provider Department 07/28/24 10:00 AM NEGRO DAWSON PTWS Date Time Provider Department Center 07/28/2024 10:00 AM [id number], SEAN PTWS Johnathon Mead Reason for Visit: PT Eval [747] Primary Visit Diagnosis:Scoliosis, unspecified scoliosis type, unspecified spinal region [M41.9] Other Visit Diagnoses:Degeneration of intervertebral disc of lumbar region, unspecified whether pain present [M51.369] Chronic bilateral back pain, unspecified back location [M54.9, G89.29] Allergies As of Date: 07/28/2024 (No Known Allergies) Date Reviewed: 06/21/2024 Reviewed by: Marisela Balderrama MA - Fully Assessed Prescriptions as of 07/29/2024 - SYNTHROID 100 mcg tablet Take 1 tablet by mouth once daily. Take on empty stomach - Azelaic Acid (FINACEA) 15 % gel Apply 1 application to affected area two times a day. - dasatinib (SPRYCEL) 100 mg tablet Take 1 tablet (100 mg) by mouth once daily. - amLODIPine (NORVASC) 2.5 mg tablet Take 1 tablet by mouth once daily. - lisinopril-hydroCHLORO thiazide (ZESTORETIC) 20-12.5 mg per tablet Take 1 tablet by mouth once daily. - buPROPion XL (WELLBUTRIN XL) 300 mg 24 hr tablet Take 1 tablet by mouth once daily. - acetaminophen (TYLENOL EXTRA STRENGTH) 500 mg tablet Take 1,000 mg by mouth every 8 hours as needed. - Cholecalciferol, Vitamin D3, 2,000 unit cap Take 1 tablet by mouth once daily. Commercial Estimator: Therapy (PT/OT/Speech/Resp) ID: [id number] 07/28/2024 10:40 AM Author: NEGRO DAWSON Signed by NEGRO DAWSON PT on 07/28/2024 at 10:41 AM Document text: Program_ID:[id number] Access Code: [email or web address] URL: [email or web address] Date: 07-28-2024 Prepared By: Negro Dawson Program Notes Exercises - Shoulder External Rotation and Scapular Retraction with Resistance - 1 x daily - 7 x weekly - 3 sets - 10 reps - Shoulder extension with resistance - Neutral - 1 x daily - 7 x weekly - 3 sets - 10 reps - Standing Shoulder Diagonal Horizontal Abduction 60/120 Degrees with Resistance - 1 x daily - 7 x weekly - 3 sets - 10 reps - Standing Shoulder Horizontal Abduction with Resistance - 1 x daily - 7 x weekly - 3 sets - 10 reps - Quadruped Transversus Abdominis Bracing - 1 x daily - 7 x weekly - 3 sets - 10 reps - Quadruped Pelvic Floor Contraction with Opposite Arm and Leg Lift - 1 x daily - 7 x weekly - 3 sets - 10 reps -- Normal [facility] [facility]24 THERAPY NT HNO ID: [id number] Author: NERGO DAWSON PT Service: ? Author Type: Physical Therapist Type: Therapy (PT/OT/Speech/Resp) Filed: 07/28/2024 10:41 Note Text: Program_ID:[id number] Access Code: [email or web address] URL: [email or web address] Date: 07-28-2024 Prepared By: Negro Dawson Program Notes Exercises - Shoulder External Rotation and Scapular Retraction with Resistance - 1 x daily - 7 x weekly - 3 sets - 10 reps - Shoulder extension with resistance - Neutral - 1 x daily - 7 x weekly - 3 sets - 10 reps - Standing Shoulder Diagonal Horizontal Abduction 60/120 Degrees with Resistance - 1 x daily - 7 x weekly - 3 sets - 10 reps - Standing Shoulder Horizontal Abduction with Resistance - 1 x daily - 7 x weekly - 3 sets - 10 reps - Quadruped Transversus Abdominis Bracing - 1 x daily - 7 x weekly - 3 sets - 10 reps - Quadruped Pelvic Floor Contraction with Opposite Arm and Leg Lift - 1 x daily - 7 x weekly - 3 sets - 10 reps Normal [facility] CNPRoxane 07-01-2024 CNPN Telephone (INTMWS) KARANROSALINDA ([id number]) 1970 F Date Time Provider Department 07/01/24 EDEN PETERSEN During your visit today, we recorded the following information about you: Bailee Christensen, TAWANNA 07/01/2024 4:44 PM Signed ----- Message from Eden Petersen MD sent at 07/01/2024 1:01 PM EST ----- Staff please open a telephone encounter for her and ask her if she wants to do physical therapy. Darion Tellez regarding your x-ray of the back. This was the impression IMPRESSION: 1. L5 pars defects with grade 2 anterolisthesis at L5-S1. 2. Mild levoconvex curvature of the thoracic spine.2. 3. Moderate to severe degenerative changes, as described. 1. For the first point pars defect which means is that there is a small fracture of the supporting vertebrae of spinous process. This is not a huge concern unless there is significant pain in your back. For the condition itself it would be advised that you avoid any high impact sports which you do not do anyway. Avoid excessive back extension which would mean you have to stop doing it and that causes you to over Rojas back, avoid repetitive bending or twisting, and when I mean high impact sports and mean jumping running. #2. I would not be too concerned about the scoliosis, it is more on the milder side but it is causing some back deformity but I am more concerned about your kyphosis which is exaggerated curvature in the lower lumbar area. Physical therapy back braces might help. Back was not will be especially helpful if you have back pain. 3. You do have a lot of degenerative changes which are considered moderate to severe between your whole lumbar spine and I would say for that to physical therapy and exercise would help. Please let me know if you would like me to do physical therapy. Regards, Marisela Lawson MA 07/04/2024 11:07 AM Signed Patient denies any pain but would like to proceed with pain management. Order pended. Please review 07/01/24 pelvic ultrasound and advise. VICKY Nieves Chitra, MD 07/04/2024 6:31 PM Signed With regards to the pelvic ultrasound I would send her to DIRECTOR OF PSYCHOLOGY and probably do endometrial sampling. Her results show that her uterus is thick but it is consistent with adenomyosis which is when the endometrial tissue exists within and grows into the uterine wall. Regards, Cyndi John MD, RN 07/05/2024 9:48 AM Signed Patient contacted and provider's message below was reviewed. Patient agreeable to see Gynecology and transferred to grain origination specialist. Asking if Dr. Peetrsen could place order for Physical Therapy Referral for patient, as recommended below. Order pended for review. Please call patient once order is placed to assist with scheduling. Thank you. Megafernando Regi 07/06/2024 2:03 PM Signed Called pt and left a vm to return on our call need a pt appt Allergies As of Date: 07/01/2024 (No Known Allergies) Date Reviewed: 06/21/2024 Reviewed by: Marisela Balderrama MA - Fully Assessed Reason for Visit: Results [95] Cmt: Xray back Primary Visit Diagnosis:Endometrial thickening on ultrasound [R93.89] Other Visit Diagnoses:Scoliosis, unspecified scoliosis type, unspecified spinal region [M41.9] Degeneration of intervertebral disc of lumbar region, unspecified whether pain present [M51.369] Chronic bilateral back pain, unspecified back location [M54.9, G89.29] Order(s):CONSULT TO GYNECOLOGY [9013] Order #: [id number]: 1 FUTURE CONSULT TO PHYSICAL THERAPY [9032] Order #: [id number]: 1 FUTURE Prescriptions as of 11/01/2024 - dasatinib (SPRYCEL) 100 mg tablet TAKE 1 TABLET BY MOUTH 1 TIME A DAY - lisinopril-hydroCHLORO thiazide (ZESTORETIC) 20-12.5 mg per tablet Take 1 tablet by mouth once daily. - progesterone micronized (PROMETRIUM) 200 mg capsule Take 1 capsule by mouth daily at bedtime for 7 days. every 2-3 months to induce a period - amLODIPine (NORVASC) 2.5 mg tablet Take 1 tablet by mouth once daily. - buPROPion XL (WELLBUTRIN XL) 300 mg 24 hr tablet Take 1 tablet by mouth once daily. - SYNTHROID 100 mcg tablet Take 1 tablet by mouth once daily. Take on empty stomach - Azelaic Acid (FINACEA) 15 % gel Apply 1 application to affected area two times a day. - acetaminophen (TYLENOL EXTRA STRENGTH) 500 mg tablet Take 1,000 mg by mouth every 8 hours as needed. - Cholecalciferol, Vitamin D3, 2,000 unit cap Take 1 tablet by mouth once daily. Problem List As Of Date 07/01/2024 Noted Resolved Acquired hypothyroidism [E03.9] 11/16/2015 Acne rosacea [L71.9] 12/14/2015 Obesity (BMI 30.0-34.9) [E66.811] 03/13/2017 09/10/2022 Benign hypertension [I10] 09/03/2017 Encounter Status:Closed by BAILEE CHRISTENSEN on 11/01/24 Normal [facility] FEMALE PELVIS TRANSABD LT Don 07-01-2024 FEMALE PELVIS TRANSABD LTD * * *Final Report* * * DATE OF EXAM: Jul 01 2024 8:55AM WRU 1059 - US FEMALE PELVIS TRANSABD LTD / PROCEDURE REASON: Spotting * * * * Physician Interpretation * * * * EXAMINATION: TRANSVAGINAL AND LIMITED TRANSABDOMINAL FEMALE PELVIC ULTRASOUND CLINICAL HISTORY: Abnormal bleeding TECHNIQUE: Sonography of the pelvis was performed by transvaginal and transabdominal (limited) techniques. Images were obtained and stored in a permanent archive. MQ: [facility]_2021 COMPARISON: None RESULT: Uterus: LMP 10/23/2023 -Size: 12.3 x 7.2 x 6.3 cm -Orientation: Anteverted -Endometrial echo complex: Evaluation of the endometrium was adequate. No endometrial abnormality. The endometrial echo complex measured 1 cm. -Cervix: Nabothian cysts present, otherwise unremarkable. -Adenomyosis assessment: Globular uterine shape, heterogeneous parenchymal echogenicity, endometrial-myometrial interface is indistinct, -Fibroids: There are no fibroids. Right Ovary: 5.3 x 2.2 x 3.2 cm Simple cyst of 3.2 cm. Heterogeneous solid avascular lesion of 2.4 cm Left Ovary: 3.4 x 2.2 x 3.1 cm Simple cyst of 3.6 cm Free Fluid: No abnormal free fluid is present. IMPRESSION: Sonographic appearance of the uterus is consistent with the clinical diagnosis of adenomyosis. The endometrium is thickened. Recommend consideration for endometrial sampling. Solid right ovarian lesion. A vascular. O-RADS category 3 low risk lesion. If not surgically excised, Pelvic MRI recommended for further evaluation of the myometrium and right ovarian lesion. ACTIONABLE RESULT: FOLLOW-UP Acuity: Actionable Findings: Female reproductive tract (pelvis, adnexa) Routing code: WH_1 Recommendation: Unlisted Recommendation (see report) Time Frame: At the discretion of the clinical team. COMMUNICATION: Results will be communicated with the ordering provider via [employer] staff message or phone message by [facility] within 2 business days of report finalization. --END OF FINDING-- Steel Plate Caulker: KING Transcribe Date/Time: Jul 04 2024 10:10A Dictated by : STEPHANY VÁSQUEZ MD This examination was interpreted and the report reviewed and electronically signed by: STEPHANY VÁSQUEZ MD on Jul 04 2024 10:16AM EST [id number] ACTIONABLE Invalid Interpretation Code [facility] FEMALE PELVIS TRANSVAGon 07-01-2024 FEMALE PELVIS TRANSVAG * * *Final Report* * * DATE OF EXAM: Jul 01 2024 8:55AM WRU 1060 - US FEMALE PELVIS TRANSVAG / PROCEDURE REASON: Spotting * * * * Physician Interpretation * * * * EXAMINATION: TRANSVAGINAL AND LIMITED TRANSABDOMINAL FEMALE PELVIC ULTRASOUND CLINICAL HISTORY: Abnormal bleeding TECHNIQUE: Sonography of the pelvis was performed by transvaginal and transabdominal (limited) techniques. Images were obtained and stored in a permanent archive. MQ: [facility]_2021 COMPARISON: None RESULT: Uterus: LMP 10/23/2023 -Size: 12.3 x 7.2 x 6.3 cm -Orientation: Anteverted -Endometrial echo complex: Evaluation of the endometrium was adequate. No endometrial abnormality. The endometrial echo complex measured 1 cm. -Cervix: Nabothian cysts present, otherwise unremarkable. -Adenomyosis assessment: Globular uterine shape, heterogeneous parenchymal echogenicity, endometrial-myometrial interface is indistinct, -Fibroids: There are no fibroids. Right Ovary: 5.3 x 2.2 x 3.2 cm Simple cyst of 3.2 cm. Heterogeneous solid avascular lesion of 2.4 cm Left Ovary: 3.4 x 2.2 x 3.1 cm Simple cyst of 3.6 cm Free Fluid: No abnormal free fluid is present. IMPRESSION: Sonographic appearance of the uterus is consistent with the clinical diagnosis of adenomyosis. The endometrium is thickened. Recommend consideration for endometrial sampling. Solid right ovarian lesion. A vascular. O-RADS category 3 low risk lesion. If not surgically excised, Pelvic MRI recommended for further evaluation of the myometrium and right ovarian lesion. ACTIONABLE RESULT: FOLLOW-UP Acuity: Actionable Findings: Female reproductive tract (pelvis, adnexa) Routing code: WH_1 Recommendation: Unlisted Recommendation (see report) Time Frame: At the discretion of the clinical team. COMMUNICATION: Results will be communicated with the ordering provider via [employer] staff message or phone message by [facility] within 2 business days of report finalization. --END OF FINDING-- Steel Plate Caulker: KING Transcribe Date/Time: Jul 04 2024 10:10A Dictated by : STEPHANY VÁSQUEZ MD This examination was interpreted and the report reviewed and electronically signed by: STEPHANY VÁSQUEZ MD on Jul 04 2024 10:16AM EST [id number] ACTIONABLE Invalid Interpretation Code [facility] THINPREP TIS PAP W/REFL HPV mRNA E6/E7on 06-24-2024 CLINICAL INFORMATION: Normal [facility] Comment on above: Result Comment: None given Performed By: #### 9 0934 #### [facility] [address], [address] [place] [phone] Public Welfare Worker: Khanh Buckley MD COMMENT Normal [employer] Comment on above: Result Comment: EXPL ANATORY NOTE: The Pap is a screening test for cervical cancer. It is not a diagnostic test and is subject to false negative and false positive results. It is most reliable when a satisfactory sample, regularly obtained, is submitted with relevant clinical findings and history, and when the Pap result is evaluated along with historic and current clinical information. Performed By: #### 9 0934 #### [facility] [address], [address] [place] [id number] Public Welfare Worker: Khanh Buckley MD PIPE WASHER: Normal [employer] Comment on above: Performed By: #### 9 0934 #### [facility] of [address], [address] [place] [address] Public Welfare Worker: Khanh Buckley MD INTERPRETATION/RESULT : Normal [facility] Comment on above: Result Comment: Unab le to provide interpretation, see adequacy statement. Performed By: #### 9 0934 #### [facility] of [address], [address] [place] [address] Public Welfare Worker: Khanh Buckley MD LMP: Normal [facility] Comment on above: Result Comment: None given Performed By: #### 9 0934 #### [facility] of [address], [address] [place] [address] Public Welfare Worker: Khanh Buckley MD PREV. BX: Normal [facility] Comment on above: Result Comment: None given Performed By: #### 9 0934 #### [facility] of [address], [address] [place] [address] Public Welfare Worker: Khanh Buckley MD PREV. PAP: Normal [facility] Comment on above: Result Comment: None given Performed By: #### 9 0934 #### [facility] of [address], [address] [place] [address] Public Welfare Worker: Khanh Buckley MD SOURCE: Normal [facility] Comment on above: Result Comment: None given Performed By: #### 9 0934 #### [facility] of [address], [address] [place] [address] Public Welfare Worker: Khanh Buckley MD STATEMENT OF ADEQUACY: Normal [facility] Comment on above: Result Comment: Test cancelled per client request. Performed By: #### 9 0934 #### [facility] of [address], [address] [place] [address] Public Welfare Worker: Khanh Buckley MD 25(OH)D3 [facility] 2023 25-hydroxyvitamin D3 [Mass/Vol] 34.3 ng/mL Normal 31.0-80.0 [facility] Comment on above: Order Comment: Speci men Type: BLOOD SPECIMENOrdering Facility: [facility] Address: [address] [place] [address] Performed By: #### 1 989-3 ####[facility] LABCLIA [id number] [address] [place] [id number] [address] [place] 25-hydroxyvitamin D3 [Mass/V ol]on 06-21-2024 Interpretation and review of laboratory results Normal [facility] CNOVon 06-21-2024 CNOV Office Visit (INTMWS ) ROSALINDA RUSSO ([id number]) 1970 F Date Time Provider Department 06/21/24 9:20 AM EDEN PETERSEN INTMWS During your visit today, we recorded the following information about you: Pulse Respiration Blood pressure Weight 63/minute 16/minute 108/80 73.9 kg Eden Petersen MD 06/22/2024 9:01 AM Signed Reason for Visit Patient presents with: Follow Up Rosalinda Russo is a 52 year old female who presents here today for Above Complaints.. Health Maintenance HEPATITIS B(1 of 3 - 3-dose series) MAMMOGRAM SHINGRIX VACCINE(1 of 2) INFLUENZA(1) LIPID SCREEN HPI Jessica is a very pleasant 54-year-old with a past medical history of hypertension, anxiety depression and hypothyroidism. Recently she was diagnosed with Chronic myeloid leukemia. Here to talk about her periods cessation and few other issues She has a pt sitter in [place], sees him yearly. Her periods were very regular, had no problems till recently when her. Stopped around 7 months ago and a couple months back she had spotting that lasted for 3 weeks. Was advised to get ultrasound of the uterus. Her FSH that was done in our system a few months ago was not in the postmenopausal Levels. She did have repeat test in the past week and her levels were definitely towards the postmenopausal level. They were higher than the upper range of the luteal follicular and ovulatory phases. They were reaching towards the postmenopausal phase. Last year she did have some irregularities. She had her period in August 2022 she had her regular periods and on october 25, she had one occurrence, of spotting the blood was dark and dried. Her mother had surgical menopause. She has not been gaining weight but rather losing weight, she has lost around 50 pounds, intentionally in 2 years, cut out her soda, does intermittent fasting. On retrospect we think that this weight loss is probably partially from the CML in addition to her diet and exercise. She denies having nausea, bloating, easy satiety, abdominal pain, or other pt sitter symptoms She does have some hot flashes, no genitourinary syndrome. On wellbutrin so she has not noticed any fatigue or depression that is over her baseline. HTN: Compliant with medications. Denies any chest pain, palpitations, or edema. No SOB. Doesn't check BP at home generally. Careful with diet to avoid salt, trying to eat more fruits and vegetables, exercises regularly. No problem-specific Assessment AND Plan notes found for this encounter. PAST MEDICAL HISTORY Diagnosis Date Benign hypertension 09/03/2017 Hypothyroid Rosacea PAST SURGICAL HISTORY Procedure Laterality Date SECTION HX 01/2013 [facility] CHOLECYSTECTOMY 2009 [facility] HERNIA REPAIR HX 11/2013 [facility] LAPAROSCOPY REPAIR INCISIONAL HERNIA REDUCIBLE 07/2013 [facility] FAMILY HISTORY Problem Relation Age of Onset Depression Mother Diabetes Father Cancer Father liver Hypertension Father Blood Clots Sister Hypertension Sister Alcohol abuse Sister Stroke Maternal Grandmother Blindness Maternal Grandmother Hypertension Maternal Grandmother Diabetes Maternal Grandmother Hypertension Maternal Grandfather Diabetes Maternal Grandfather Heart Attack Paternal Grandmother Hypertension Paternal Grandfather Stroke Paternal Grandfather Diabetes Paternal Grandfather Social History Tobacco Use Smoking status: Never Smokeless tobacco: Never Vaping Use Vaping status: Never Used Substance Use Topics Alcohol use: Not Currently Comment: rarely Drug use: No Past medical history, appointments, medications, allergies reviewed. Pertinent Lab/Diagnostic Studies are reviewed and discussed today Current Outpatient Medications: Azelaic Acid (FINACEA) 15 % gel dasatinib (SPRYCEL) 100 mg tablet amLODIPine (NORVASC) 2.5 mg tablet lisinopril-hydroCHLORO thiazide (ZESTORETIC) 20-12.5 mg per tablet buPROPion XL (WELLBUTRIN XL) 300 mg 24 hr tablet acetaminophen (TYLENOL EXTRA STRENGTH) 500 mg tablet SYNTHROID 100 mcg tablet Cholecalciferol, Vitamin D3, 2,000 unit cap Review of Systems CONSTITUTIONAL: No fevers, chills night sweats, unintended weight loss CARDIOVASCULAR: No chest pain, dyspnea, palpitations, orthopnea, PND, ankle edema. PULM: No dyspnea, unexplained cough. GI: No dysphagia/odynophagia, problematic reflux, constipation, diarrhea, changes in stool habits, hematochezia, melena. : No new urinary complaints, including dysuria, gross hematuria or pyuria. NEURO: No new balance problems, peripheral weakness/paresthesias or numbness of concern. Physical Exam BP 108/80 Pulse 63 Resp 16 Wt 73.9 kg (163 lb) LMP 10/14/2023 (Approximate) BMI 28.52 kg/m? General appearance: Well appearing, alert, in no (more content not included)... Normal [facility] FERRITINon 06-21-2024 Ferritin [Mass/Vol] 52.1 ng/mL 14.7 - 2 05.1 ng/mL [facility] Ferritin SerPl-mCncon 2023 Ferritin [Mass/Vol] 52.1 ng/mL Normal 14.7-205.1 [facility] Comment on above: Order Comment: Speci men Type: BLOOD SPECIMENOrdering Facility: [facility] Address: [address] [place] [address] Performed By: #### 2 276-4, 88990-1 ####[facility] LABCLIA [id number] [place] [address] [place] Ferritin [Mass/Vol]on 2023 Interpretation and review of laboratory results Normal [facility] HIV 1+2 Ab IA Qlon HIV 1 and 2 Ab IA.rapid Nom (S/P/Bld) [facility] Comment on above: Test not indicated. HIV 1+2 Ab+HIV1 p24 Ag IA Ql Non-Reactive Nonreactive [facility] HIV immunoassay testing algorithm interpretation (S/P/Bld) [Interp] [facility] Comment on above: No evidence of HIV-1 or HIV-2 infection. Should recent infection be suspected, repeat testing may be considered 2-3 weeks after this draw. [place] Rev. Code 3701.243(E): This information has been disclosed to you from confidential records protected from disclosure by state law. You shall make no further disclosure of this information without the specific, written, and informed release of the individual to whom it pertains or as otherwise permitted by state law. A general authorization for the release of medical or other information is not sufficient for the purpose of the release of HIV test results or diagnoses. [facility] HIV 1 and 2 Ab IA.rapid Nom (S/P/Bld) Normal [facility] Comment on above: Order Comment: Speci men Type: BLOOD SPECIMENOrdering Facility: [facility] Address: [address] [place] [address] Result Comment: Test not indicated. Performed By: #### 3 1201-7 ####[facility] LABIA [id number] [address] STATES OF [facility] HIV 1+2 Ab+HIV1 p24 Ag IA Ql Non-Reactive Normal Nonreactive [facility] Comment on above: Order Comment: Speci men Type: BLOOD SPECIMENOrdering Facility: [facility] Address: [address] [place] [address] Performed By: #### 3 1201-7 ####[facility] LABIA [id number] [place] [address] [place] HIV immunoassay testing algorithm interpretation (S/P/Bld) [Interp] Normal [facility] Comment on above: Order Comment: Speci men Type: BLOOD SPECIMENOrdering Facility: [facility] Address: [address] [place] [address] Result Comment: No e vidence of HIV-1 or HIV-2 infection. Should recent infection be suspected, repeat testing may be considered 2-3 weeks after this draw. [place] Rev. Code 3701.243(E): This information has been disclosed to you from confidential records protected from disclosure by state law. ???You shall make no further disclosure of this information without the specific, written, and informed release of the individual to whom it pertains or as otherwise permitted by state law. A general authorization for the release of medical or other information is not sufficient for the purpose of the release of HIV test results or diagnoses. Performed By: #### 3 1201-7 ####[facility] LABCLIA [id number] [place] [address] [place] Iron and Iron binding capaci ty panelon 06-21-2024 Interpretation and review of laboratory results Normal [facility] Iron [Mass/Vol] 88 ug/dL 41 - 186 ug/dL [facility] Iron binding capacity [Mass/Vol] 334 ug/dL 232 - 386 ug/dL [facility] Iron/TIBC [Molar ratio] 26.3 % 15.0 - 57.0 % [facility] Iron [Mass/Vol] 88 ug/dL Normal 41-186 [facility] Comment on above: Order Comment: Speci men Type: BLOOD SPECIMENOrdering Facility: [facility] Address: [address] [place] [address] Performed By: #### 2 276-4, 03280-6 ####[facility] LABCLIA [id number] [address] [place] Iron binding capacity [Mass/Vol] 334 ug/dL Normal 232-386 [facility] Comment on above: Order Comment: Speci men Type: BLOOD SPECIMENOrdering Facility: [facility] Address: [address] [place] [address] Performed By: #### 2 276-4, 80158-3 ####[facility] LABCLIA [id number] [address] [address] [place] Iron/TIBC [Molar ratio] 26.3 % Normal 15.0-57.0 [facility] Comment on above: Order Comment: Speci men Type: BLOOD SPECIMENOrdering Facility: [facility] Address: [address] [place] [address] Performed By: #### 2 276-4, 34524-5 ####[facility] LABCLIA [id number] [facility] [id number] [address] [place] VITAMIN D 25 HYDROXYon 06-21 25-hydroxyvitamin D3 [Mass/Vol] 34.3 ng/mL 31.0 - 80.0 ng/mL [facility] XR SCOLIOSIS 2V PA STAND/LAT on 06-21-2024 XR SCOLIOSIS 2V PA STAND/LAT * * *Final Report* * * DATE OF EXAM: Jun 21 2024 11:32AM WRX [id number] - XR SCOLIOSIS 2V PA STAND/LAT / PROCEDURE REASON: Scoliosis, unspecified scoliosis type, unspecified spinal region * * * * Physician Interpretation * * * * EXAMINATION / TECHNIQUE: XR SCOLIOSIS 2V PA STAND/LAT PATIENT/TECHNOLOGIST PROVIDED HISTORY: PT STATES NO BACK PAIN OR ISSUES WITH SPINE. CLINICAL INFORMATION ( PROVIDED BY ORDERING CLINICIAN) : Scoliosis, unspecified scoliosis type, unspecified spinal region COMPARISON: RESULT: Counting reference: Lumbosacral junction. For the purposes of this report, L4-5 is considered the level of the iliac crest and there are 5 lumbar-type vertebrae. Anatomic Variants: None. L5 pars defects with grade 2 anterolisthesis at L5-S1. Accentuated thoracolumbar kyphosis at the thoracolumbar junction. Mild 14 degrees of levoconvex curvature from T9 to T12. Moderate to severe degenerative disc disease at T12-L1 and L5-S1, with disc height loss, degenerative endplate changes, and osteophytes. Mild to moderate degenerative disc disease elsewhere. IMPRESSION: 1. L5 pars defects with grade 2 anterolisthesis at L5-S1. 2. Mild levoconvex curvature of the thoracic spine. 3. Moderate to severe degenerative changes, as described. Steel Plate Caulker: PSCB Transcribe Date/Time: Jun 26 2024 2:25P Dictated by : SUSANNE KURTZ MD This examination was interpreted and the report reviewed and electronically signed by: SUSANNE KURTZ MD on Jun 26 2024 2:27PM EST [id number] Normal [facility] ESTRADIOLon 06-19-2024 ESTRADIOL 97 pg/mL Normal [facility] Comment on above: Result Comment: Refe rence Range Follicular Phase: 19-144 Mid-Cycle: 64-357 Luteal Phase: 56-214 Postmenopausal: < or = 31 Reference range established on post-pubertal patient population. No pre-pubertal reference range established using this assay. For any patients for whom low Estradiol levels are anticipated (e.g. males, pre-pubertal children and hypogonadal/post-menopausal females), the MooBella Estradiol, Ultrasensitive, LCMSMS assay is recommended (order code 22285). Please note: patients being treated with the drug fulvestrant (Faslodex(R)) have demonstrated significant interference in immunoassay methods for estradiol measurement. The cross reactivity could lead to falsely elevated estradiol test results leading to an inappropriate clinical assessment of estrogen status. [employer] order code [id number], Ultrasensitive LC/MS/MS demonstrates negligible cross reactivity with fulvestrant. Performed By: #### 4 021, 470 #### [facility] [address], [address] [place] [phone] Public Welfare Worker: Khanh Buckley MD Estradiolon 06-19-2024 E2 [Mass/Vol] 97 pg/mL [facility] Comment on above: Reference Range Follicular Phase: 19-144 Mid-Cycle: 64-357 Luteal Phase: 56-214 Postmenopausal: < or = 31 Reference range established on post-pubertal patient population. No pre-pubertal reference range established using this assay. For any patients for whom low Estradiol levels are anticipated (e.g. males, pre-pubertal children and hypogonadal/post-menopausal females), the MooBella Estradiol, Ultrasensitive, LCMSMS assay is recommended (order code 75978). Please note: patients being treated with the drug fulvestrant (Faslodex(R)) have demonstrated significant interference in immunoassay methods for estradiol measurement. The cross reactivity could lead to falsely elevated estradiol test results leading to an inappropriate clinical assessment of estrogen status. [employer] order code [id number], Ultrasensitive LC/MS/MS demonstrates negligible cross reactivity with fulvestrant. FSHon 06-19-2024 FSH 19.7 mIU/mL Normal [facility] Comment on above: Result Comment: Refe rence Range Follicular Phase 2.5-10.2 Mid-cycle Peak 3.1-17.7 Luteal Phase 1.5- 9.1 Postmenopausal 23.0-116.3 Performed By: #### 4 021, 470 #### [employer] [place] [address] [address] , [address] [place] [address] Public Welfare Worker: Khanh Buckley MD Follicle stimulating hormone on 06-19-2024 Follitropin Qn 19.7 m[IU]/mL mIU/mL [facility] Comment on above: Reference Range Follicular Phase 2.5-10.2 Mid-cycle Peak 3.1-17.7 Luteal Phase 1.5- 9.1 Postmenopausal 23.0-116.3 No Panel Informationon 06-19 Performing Organization Information Site ID: QPT Name: [employer] [facility] Address: [facility] [address] , [address] [place] [phone] Director: Khanh Buckley MD [facility] CNPNon 06-10-2024 CNPN Telephone (RUTH) ROSALINDA RUSSO ([id number]) 1970 F Date Time Provider Department 06/10/24 MARGARITA TERRY During your visit today, we recorded the following information about you: Margarita Terry LISW 06/10/2024 11:02 AM Signed SOCIAL WORK FOLLOW UP NOTE: [facility] Pt noted on PRO Taussig report with a PHQ score of 8, below the threshold of requiring SW outreach. Pt also was seen by provider yesterday and per chart review, no concerns noted at OV. Deferred JOSE Moore-Blade Allergies As of Date: 06/10/2024 (No Known Allergies) Date Reviewed: 06/09/2024 Reviewed by: Joshua Quinn MA - Fully Assessed Reason for Visit: SOCIAL WORK SERVICES (PRO TAUSSIG REPORT) [Other] Prescriptions as of 06/10/2024 - Azelaic Acid (FINACEA) 15 % gel Apply 1 application to affected area two times a day. - dasatinib (SPRYCEL) 100 mg tablet Take 1 tablet (100 mg) by mouth once daily. - amLODIPine (NORVASC) 2.5 mg tablet Take 1 tablet by mouth once daily. - lisinopril-hydroCHLORO thiazide (ZESTORETIC) 20-12.5 mg per tablet Take 1 tablet by mouth once daily. - buPROPion XL (WELLBUTRIN XL) 300 mg 24 hr tablet Take 1 tablet by mouth once daily. - acetaminophen (TYLENOL EXTRA STRENGTH) 500 mg tablet Take 1,000 mg by mouth every 8 hours as needed. - SYNTHROID 100 mcg tablet Take 1 tablet by mouth once daily. Take on empty stomach - Cholecalciferol, Vitamin D3, 2,000 unit cap Take 1 tablet by mouth once daily. Problem List As Of Date 06/10/2024 Noted Resolved Acquired hypothyroidism [E03.9] 11/16/2015 Acne rosacea [L71.9] 12/14/2015 Obesity (BMI 30.0-34.9) [E66.811] 03/13/2017 09/10/2022 Benign hypertension [I10] 09/03/2017 Encounter Status:Closed by MARGARITA [facility] Office (RUTH) ROSALINDA RUSSO ([id number]) 1970 F Date Time Provider Department 06/09/24 9:40 AM PRINCE URIBE During your visit today, we recorded the following information about you: Temperature Pulse Blood pressure Weight 99 degrees 62/minute 110/72 73.7 kg Prince Uribe MD 06/09/2024 10:21 AM Signed (Elements copied from my note dated , have been reviewed and updated where appropriate, and all reflect current assessment and medical decision making from today's encounter, June 09, 2024) HISTORY OF PRESENT ILLNESS: Rosalinda Russo is a 53 year old female referred from ER with WBC 380K. Feels well, no fevers, active. Was in ER with chest pains, atypical, work up for this negative. Detailed review of labs Here for follow up, on Gleevec since Apr 14, 2023. Switched to dasatinib October 2023 due to persistent transcript Here for follow up, feels well, reviewed labs in detail, also NCCN guidelines. 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 Continue dasatinib. PCR testing 3 months. Written and verbal health teaching given to patient, patient verbalizes understanding and agrees with treatment plan. PAST MEDICAL HISTORY Diagnosis Date Benign hypertension 09/03/2017 Hypothyroid Rosacea PAST SURGICAL HISTORY Procedure Laterality Date SECTION HX 01/2013 [facility] CHOLECYSTECTOMY 2009 [facility] HERNIA REPAIR HX 11/2013 [facility] LAPAROSCOPY REPAIR INCISIONAL HERNIA REDUCIBLE 07/2013 [facility] FAMILY HISTORY Problem Relation Age of Onset Depression Mother Diabetes Father Cancer Father liver Hypertension Father Blood Clots Sister Hypertension Sister Alcohol abuse Sister Stroke Maternal Grandmother Blindness Maternal Grandmother Hypertension Maternal Grandmother Diabetes Maternal Grandmother Hypertension Maternal Grandfather Diabetes Maternal Grandfather Heart Attack Paternal Grandmother Hypertension Paternal Grandfather Stroke Paternal Grandfather Diabetes Paternal Grandfather Social History Tobacco Use Smoking status: Never Smokeless tobacco: Never Vaping Use Vaping status: Never Used Substance Use Topics Alcohol use: Not Currently Comment: rarely Drug use: No ALLERGIES: ALLERGIES No Known Allergies CURRENT OUTPATIENT MEDICATIONS: Azelaic Acid (FINACEA) 15 % gel Apply 1 application to affected area two times a day. dasatinib (SPRYCEL) 100 mg tablet Take 1 tablet (100 mg) by mouth once daily. amLODIPine (NORVASC) 2.5 mg tablet Take 1 tablet by mouth once daily. lisinopril-hydroCHLORO thiazide (ZESTORETIC) 20-12.5 mg per tablet Take 1 tablet by mouth once daily. buPROPion XL (WELLBUTRIN XL) 300 mg 24 hr tablet Take 1 tablet by mouth once daily. acetaminophen (TYLENOL EXTRA STRENGTH) 500 mg tablet Take 1,000 mg by mouth every 8 hours as needed. SYNTHROID 100 mcg tablet Take 1 tablet by mouth once daily. Take on empty stomach Cholecalciferol, Vitamin D3, 2,000 unit cap Take 1 tablet by mouth once daily. REVIEW OF SYSTEMS: GENERAL: No fever, night sweats, weight loss or malaise. All other reviewed and negative other than HPI. PHYSICAL EXAMINATION: VITAL SIGNS: BP 110/72 Pulse 62 Temp (Src) 99 (Temporal) Wt 162 lb 8 oz (73.7kg) SpO2 98% LMP 10/14/2023 GENERAL APPEARANCE: Well appearing, in no acute distress, alert and oriented x3, well-hydrated, well nourished. No splenomegaly I spent a total of 20 minutes on the date of the service which included preparing to see the patient, [id number] patient care, completing clinical documentation, obtaining and/or reviewing separately obtained history, counseling and educating the patient/family/caregiv er, ordering medications, tests, or procedures, communicating with other HCPs (not separately reported), independently interpreting results (not separately reported), communicating results to the patient/family/caregiv er, and care coordination (not separately reported). Electronically Signed: Prince Uribe MD June 09, 2024 Referring Provider: PRINCE URIBE [[id number]] Allergies As of Date: 06/09/2024 (No Known Allergies) Date Reviewed: 06/09/2024 Reviewed by: Joshua Quinn MA - Fully Assessed Reason for Visit: Established Patient [175] Primary Visit Diagnosis:CML (chronic myeloid leukemia) (HCC) [C92.10] Order(s):COMPREHENSIVE METABOLIC PANEL [SQCMP] Order #: [id number] FUTURE Follow-up and Disposition History for Encounter Date Provider Department Center 06/09/2024 [id number], DREW HEMAWS Johnathon Mill Prescriptions as of 06/09/2024 - Azelaic Acid (FINACEA) 15 % gel Apply 1 application to aff (more content not included)... Normal [facility] metabolic 2000 panelOrdered By: Genevieve West on 06-09-2024 Albumin [Mass/Vol] 4.5 g/dL 3.9 - 4.9 g/dL [facility] ALP [Catalytic activity/Vol] 57 U/L 34 - 123 U/L [facility] ALT [Catalytic activity/Vol] 16 U/L 7 - 38 U/L [facility] Anion gap [Moles/Vol] 13 mmol/L 8 - 15 mmol/L [facility] AST [Catalytic activity/Vol] 18 U/L 13 - 35 U/L [facility] Bilirubin [Mass/Vol] 0.4 mg/dL 0.2 - 1 .3 mg/dL [facility] Calcium [Mass/Vol] 9.3 mg/dL 8.5 - 10. 2 mg/dL [facility] Chloride [Moles/Vol] 103 mmol/L 98 - 10 7 mmol/L [facility] CO2 [Moles/Vol] 25 mmol/L 22 - 30 mmol/L [facility] Creatinine [Mass/Vol] 0.93 mg/dL 0.58 - 0.96 mg/dL [facility] GFR/1.73 sq M.predicted among non-blacks MDRD (S/P/Bld) [Vol rate/Area] 74 mL/min/{1.73_m2} - PINF [facility] Comment on above: Estimated Glomerular Filtration Rate (eGFR) is calculated using the 2020 CKD-EPI creatinine equation. This equation utilizes serum creatinine, sex, and age as parameters. The creatinine assay has traceable calibration to isotope dilution-mass spectrometry. Refer to KDIGO guidelines for clinical interpretation. In patients with unstable renal function, e.g. those with acute kidney injury, the eGFR may not accurately reflect actual GFR. Glucose [Mass/Vol] 84 mg/dL 74 - 99 mg/dL [facility] Comment on above: The [place] Diabete s Association (ADA) provides guidance for cutoff values for fasting glucose and random glucose. The ADA defines fasting as no caloric intake for at least 8 hours. Fasting plasma glucose results between 100 to 125 mg/dL indicate increased risk for diabetes (prediabetes). Fasting plasma glucose results greater than or equal to 126 mg/dL meet the criteria for diagnosis of diabetes. In the absence of unequivocal hyperglycemia, results should be confirmed by repeat testing. In a patient with classic symptoms of hyperglycemia or hyperglycemic crisis, random plasma glucose results greater than or equal to 200 mg/dL meet the criteria for diagnosis of diabetes. Reference: Standards of Medical Care in Diabetes 2016, [place] Diabetes Association. Diabetes Care. 2016.39(Suppl 1). Interpretation and review of laboratory results Normal [facility] Potassium [Moles/Vol] 4.0 mmol/L 3.7 - 5.1 mmol/L [facility] Protein [Mass/Vol] 6.9 g/dL 6.3 - 8.0 g/dL [facility] Sodium [Moles/Vol] 141 mmol/L 136 - 144 mmol/L [facility] Urea nitrogen [Mass/Vol] 14 mg/dL 7 - 21 mg/dL [facility] Comprehensive metabolic 2000 panelon 06-09-2024 Albumin [Mass/Vol] 4.5 g/dL Normal 3.9-4.9 [facility] Comment on above: Order Comment: Speci men Type: BLOOD SPECIMENOrdering Facility: [facility] Address: [address] [place] [address] Performed By: #### 2 4323-8 ####[facility]LIA [id number] [place] [address] [place] ALP [Catalytic activity/Vol] 57 U/L Normal 34-123 [facility] Comment on above: Order Comment: Speci men Type: BLOOD SPECIMENOrdering Facility: [facility] Address: [address] [place] [address] Performed By: #### 2 4323-8 ####[facility] [id number] [place] [address] [place] ALT [Catalytic activity/Vol] 16 U/L Normal 7-38 [facility] Comment on above: Order Comment: Speci men Type: BLOOD SPECIMENOrdering Facility: [facility] Address: [address] [place] [address] Performed By: #### 2 4323-8 ####[facility] [id number] [place] [address] [place] Anion gap [Moles/Vol] 13 mmol/L Normal 8-15 [facility] Comment on above: Order Comment: Speci men Type: BLOOD SPECIMENOrdering Facility: [facility] Address: [address] [place] [address] Performed By: #### 2 4323-8 ####[facility] MILLTOWNCLIA [id number] [place] [address] [place] AST [Catalytic activity/Vol] 18 U/L Normal 13-35 [facility] Comment on above: Order Comment: Speci men Type: BLOOD SPECIMENOrdering Facility: [facility] Address: [address] [place] [address] Performed By: #### 2 4323-8 ####[facility] MILLTOWNCLIA [id number] [place] [address] [place] Bilirubin [Mass/Vol] 0.4 mg/dL Normal 0.2-1.3 [facility] Comment on above: Order Comment: Speci men Type: BLOOD SPECIMENOrdering Facility: [facility] Address: [address] [place] [address] Performed By: #### 2 4323-8 ####[facility]CL[facility] [id number] [place] [address] [place] Calcium [Mass/Vol] 9.3 mg/dL Normal 8.5-10.2 [facility] Comment on above: Order Comment: Speci men Type: BLOOD SPECIMENOrdering Facility: [facility] Address: [address] [place] [address] Performed By: #### 2 4323-8 ####[facility]STITUTEWNCL[facility] [id number] [place] [address] [place] Chloride [Moles/Vol] 103 mmol/L Normal 98-107 [facility] Comment on above: Order Comment: Speci men Type: BLOOD SPECIMENOrdering Facility: [facility] Address: [address] [place] [address] Performed By: #### 2 4323-8 ####[facility]STITUTEWNCL[facility] [id number] [place] [address] [place] CO2 [Moles/Vol] 25 mmol/L Normal 22-30 [facility] Comment on above: Order Comment: Speci men Type: BLOOD SPECIMENOrdering Facility: [facility] Address: [address] [place] [address] Performed By: #### 2 4323-8 ####[facility] [id number] [place] [address] [place] Creatinine [Mass/Vol] 0.93 mg/dL Normal 0.58-0.96 [facility] Comment on above: Order Comment: Speci men Type: BLOOD SPECIMENOrdering Facility: [facility] Address: [address] [place] [address] Performed By: #### 2 4323-8 ####[facility] [id number] [place] [address] [place] Creatinine and Glomerular filtration rate.predicted panel (S/P/Bld) 74 mL/min/1.73m??? Normal >=60 [facility] Comment on above: Order Comment: Speci men Type: BLOOD SPECIMENOrdering Facility: [facility] Address: [address] [place] [address] Result Comment: Angie mated Glomerular Filtration Rate (eGFR) is calculated using the 2020 CKD-EPI creatinine equation. This equation utilizes serum creatinine, sex, and age as parameters. The creatinine assay has traceable calibration to isotope dilution-mass spectrometry. Refer to KDIGO guidelines for clinical interpretation. In patients with unstable renal function, e.g. those with acute kidney injury, the eGFR may not accurately reflect actual GFR. Performed By: #### 2 4323-8 ####[facility]AA [id number] [place] [address] [place] Glucose [Mass/Vol] 84 mg/dL Normal 74-99 [facility] Comment on above: Order Comment: Speci men Type: BLOOD SPECIMENOrdering Facility: [facility] Address: [address] [place] [address] Result Comment: The [place] Diabetes Association (ADA) provides guidance for cutoff values for fasting glucose and random glucose. The ADA defines fasting as no caloric intake for at least 8 hours. Fasting plasma glucose results between 100 to 125 mg/dL indicate increased risk for diabetes (prediabetes). Fasting plasma glucose results greater than or equal to 126 mg/dL meet the criteria for diagnosis of diabetes. In the absence of unequivocal hyperglycemia, results should be confirmed by repeat testing. In a patient with classic symptoms of hyperglycemia or hyperglycemic crisis, random plasma glucose results greater than or equal to 200 mg/dL meet the criteria for diagnosis of diabetes. Reference: Standards of Medical Care in Diabetes 2016, [place] Diabetes Association. Diabetes Care. 2016.39(Suppl 1). Performed By: #### 2 4323-8 ####[facility]ITALACL[facility] [id number] [place] [address] [place] Potassium [Moles/Vol] 4.0 mmol/L Normal 3.7-5.1 [facility] Comment on above: Order Comment: Speci men Type: BLOOD SPECIMENOrdering Facility: [facility] Address: [address] [place] [address] Performed By: #### 2 4323-8 ####[facility]IDAAna [id number] [place] [address] [place] Protein [Mass/Vol] 6.9 g/dL Normal 6.3-8.0 [facility] Comment on above: Order Comment: Speci men Type: BLOOD SPECIMENOrdering Facility: [facility] Address: [address] [id number] Performed By: #### 2 4323-8 ####[facility]BUSNIMO [id number] [place] [address] [place] Sodium [Moles/Vol] 141 mmol/L Normal 136-144 [facility] Comment on above: Order Comment: Speci men Type: BLOOD SPECIMENOrdering Facility: [facility] Address: [address] [id number] Performed By: #### 2 4323-8 ####[facility]STITUTEWNCLIA [id number] [place] [address] [place] Urea nitrogen [Mass/Vol] 14 mg/dL Normal 7-21 [facility] Comment on above: Order Comment: Speci men Type: BLOOD SPECIMENOrdering Facility: [facility] Address: [address] [place] [address] Performed By: #### 2 4323-8 ####[facility]ITALNCLIA [id number] [place] [address] [place] BCR/ABL1 P210 %IS PANELon BCR/ABL1 P210 %IS 0.502 Normal [facility] Comment on above: Order Comment: Speci men Type: BLOOD SPECIMENOrdering Facility: [facility] Address: [address] [place] [address] Performed By: #### P 210P ####[facility] LIMSCLIA [id number] [place] [address] [place]#### 210ISBP ####[facility] LABCLIA [id number] [place] [address] [place] BCR/ABL1 P210 MR 2.3 Normal [facility] Comment on above: Order Comment: Speci men Type: BLOOD SPECIMENOrdering Facility: [facility] Address: [address] [place] [address] Performed By: #### P 210P ####[facility] LIMSCLIA [id number] [place] [address] [place]#### 210ISBP ####[facility] LABCLIA [id number] [place] [address] [place] BCR/ABL1 P210 QUANTITATIVE P CR BLOODon 06-01-2024 BCR/ABL1 P210 INTERPRETATION Normal [facility] Comment on above: Order Comment: Speci men Type: BLOOD SPECIMENOrdering Facility: [facility] Address: [address] [place] [address] Result Comment: BCR/ ABL1 p210 Quantitative PCR Laboratory Accession Number: [id number] Result: DETECTED MR: 2.3 %IS: 0.502 Interpretation: p210 BCR/ABL1 transcripts were detected. Quantitative results are expressed on the International Scale (IS) and a log molecular response (MR) is calculated. On this scale, a value of less than or equal to 0.1% corresponds to a major molecular response (MMR or MR3.0). Methodology: [employer] ([employer]) QuantideX BCR/ABL IS assay is an FDA-cleared in vitro diagnostic test for the quantitation of BCR/ABL1 and ABL1 transcripts in total RNA from whole blood of diagnosed t(9;22) positive chronic myeloid leukemia patients expressing e13a2 and/or e14a2 fusion transcripts. This test does not detect p190 (e1a2) or other rare BCR/ABL1 transcripts. This assay has a limit of quantification and limit of detection of 0.002% IS or MR4.7. References: 1) Gisselle et al, Blood 2006;108:28-37; Jacobo et al, Leukemia 2015;29:999-1003 As reviewed by Cassy Morataya, PhD, HCLD Performed By: #### P 210P ####[facility] LIMSCLIA [id number] [place] [address] [place]#### 210ISBP ####[facility] LABCLIA [id number] [place] [address] [place] CBC W Auto Differential pane l (Bld)on 06-01-2024 Basophils (Bld) [#/Vol] 0.06 10*3/uL Normal <0.11 [facility] Comment on above: Order Comment: Ryan rangel Type: BLOOD SPECIMENOrdering Facility: [facility] Address: [address] [place] [address] Performed By: #### 5 7021-8 ####[facility] [id number] [place] [address] [place] Basophils/100 WBC (Bld) 0.9 % Normal [facility] Comment on above: Order Comment: Speci men Type: BLOOD SPECIMENOrdering Facility: [facility] Address: [address] [place] [address] Performed By: #### 5 7021-8 ####[facility]ITALDEVLIA [id number] [place] [address] [place] Differential cell count method Nom (Bld) Auto Normal [facility] Comment on above: Order Comment: Speci men Type: BLOOD SPECIMENOrdering Facility: [facility] Address: [address] [place] [address] Performed By: #### 5 7021-8 ####[facility] INSTITUTEWDEVLIA [id number] [place] [address] [place] Eosinophils (Bld) [#/Vol] 0.23 10*3/uL Normal <0.46 [facility] Comment on above: Order Comment: Speci men Type: BLOOD SPECIMENOrdering Facility: [facility] Address: [address] [place] [address] Performed By: #### 5 7021-8 ####[facility]AA [id number] [place] [address] [place] Eosinophils/100 WBC (Bld) 3.6 % Normal [facility] Comment on above: Order Comment: Speci men Type: BLOOD SPECIMENOrdering Facility: [facility] Address: [address] [place] [address] Performed By: #### 5 7021-8 ####[facility]ITALNCA [id number] [place] [address] [place] Erythrocyte distribution width (RBC) [Ratio] 13.1 % Normal 11.5-15.0 [facility] Comment on above: Order Comment: Speci men Type: BLOOD SPECIMENOrdering Facility: [facility] Address: [address] [place] [address] Performed By: #### 5 7021-8 ####[facility] JOLENEWNCLIA [id number] [place] [address] [place] Hematocrit (Bld) [Volume fraction] 39.5 % Normal 36.0-46.0 [facility] Comment on above: Order Comment: Speci men Type: BLOOD SPECIMENOrdering Facility: [facility] Address: [address] [place] [address] Performed By: #### 5 7021-8 ####[facility] COLUMBUSLIA [id number] [place] [address] [place] Hemoglobin (Bld) [Mass/Vol] 13.6 g/dL Normal 11.5-15.5 [facility] Comment on above: Order Comment: Speci men Type: BLOOD SPECIMENOrdering Facility: [facility] Address: [address] [place] [address] Performed By: #### 5 7021-8 ####[facility] [id number] [place] [address] [place] Immature granulocytes (Bld) [#/Vol] 10*3/uL Normal <0.10 [facility] Comment on above: Order Comment: Speci men Type: BLOOD SPECIMENOrdering Facility: [facility] Address: [address] [place] [address] Performed By: #### 5 7021-8 ####[facility] COLUMBUSLIA [id number] [place] [address] [place] Immature granulocytes/100 WBC (Bld) 0.3 % Normal [facility] Comment on above: Order Comment: Speci men Type: BLOOD SPECIMENOrdering Facility: [facility] Address: [address] [place] [address] Performed By: #### 5 7021-8 ####[facility] COLUMBUSLIA [id number] [place] [address] [place] Lymphocytes (Bld) [#/Vol] 1.71 10*3/uL Normal 1.00-4.00 [facility] Comment on above: Order Comment: Speci men Type: BLOOD SPECIMENOrdering Facility: [facility] Address: [address] [place] [address] Performed By: #### 5 7021-8 ####[facility] [id number] [place] [address] [place] Lymphocytes/100 WBC (Bld) 26.9 % Normal [facility] Comment on above: Order Comment: Speci men Type: BLOOD SPECIMENOrdering Facility: [facility] Address: [address] [place] [address] Performed By: #### 5 7021-8 ####[facility] [id number] [place] [address] [place] MCH (RBC) [Entitic mass] 32.2 pg Normal 26.0-34.0 [facility] Comment on above: Order Comment: Speci men Type: BLOOD SPECIMENOrdering Facility: [facility] Address: [address] [place] [address] Performed By: #### 5 7021-8 ####[facility]ITALNCLI [id number] [place] [address] [place] MCHC (RBC) [Mass/Vol] 34.4 g/dL Normal 30.5-36.0 [facility] Comment on above: Order Comment: Speci men Type: BLOOD SPECIMENOrdering Facility: [facility] Address: [address] [place] [address] Performed By: #### 5 7021-8 ####[facility]ITALNCLI [id number] [place] [address] [place] MCV (RBC) [Entitic vol] 93.4 fL Normal 80.0-100.0 [facility] Comment on above: Order Comment: Speci men Type: BLOOD SPECIMENOrdering Facility: [facility] Address: [address] [place] [address] Performed By: #### 5 7021-8 ####[facility] JOLENENOEL [id number] [place] [address] [place] Monocytes (Bld) [#/Vol] 0.46 10*3/uL Normal <0.87 [facility] Comment on above: Order Comment: Speci men Type: BLOOD SPECIMENOrdering Facility: [facility] Address: [address] [place] [address] Performed By: #### 5 7021-8 ####[facility]ITALDEVCED[facility] [id number] [place] [address] [place] Monocytes/100 WBC (Bld) 7.2 % Normal [facility] Comment on above: Order Comment: Speci men Type: BLOOD SPECIMENOrdering Facility: [facility] Address: [address] [place] [address] Performed By: #### 5 7021-8 ####[facility] [id number] [place] [address] [place] Neutrophils (Bld) [#/Vol] 3.88 10*3/uL Normal 1.45-7.50 [facility] Comment on above: Order Comment: Speci men Type: BLOOD SPECIMENOrdering Facility: [facility] Address: [address] [place] [address] Performed By: #### 5 7021-8 ####[facility]ITALNCA [id number] [place] [address] [place] Neutrophils/100 WBC (Bld) 61.1 % Normal [facility] Comment on above: Order Comment: Speci men Type: BLOOD SPECIMENOrdering Facility: [facility] Address: [address] [place] [address] Performed By: #### 5 7021-8 ####[facility]ITALNCLIA [id number] [place] [address] [place] Nucleated RBC (Bld) [#/Vol] 10*3/uL Normal <0.01 [facility] Comment on above: Order Comment: Speci men Type: BLOOD SPECIMENOrdering Facility: [facility] Address: [address] [place] [address] Performed By: #### 5 7021-8 ####[facility] [id number] [place] [address] [place] Nucleated RBC/100 WBC (Bld) [Ratio] 0.0 /100 WBC Normal [facility] Comment on above: Order Comment: Speci men Type: BLOOD SPECIMENOrdering Facility: [facility] Address: [address] [place] [address] Performed By: #### 5 7021-8 ####[facility] [id number] [place] [address] [place] Platelet mean volume (Bld) [Entitic vol] 9.8 fL Normal 9.0-12.7 [facility] Comment on above: Order Comment: Speci men Type: BLOOD SPECIMENOrdering Facility: [facility] Address: [address] [place] [address] Performed By: #### 5 7021-8 ####[facility] COLUMBUSLI [id number] [place] [address] [place] Platelets (Bld) [#/Vol] 203 10*3/uL Normal 150-400 [facility] Comment on above: Order Comment: Speci men Type: BLOOD SPECIMENOrdering Facility: [facility] Address: [address] [place] [address] Performed By: #### 5 7021-8 ####[facility] [id number] [place] [address] [place] RBC (Bld) [#/Vol] 4.23 10*6/uL Normal 3.90-5.20 [facility] Comment on above: Order Comment: Speci men Type: BLOOD SPECIMENOrdering Facility: [facility] Address: [address] [place] [address] Performed By: #### 5 7021-8 ####[facility]OSPITALNCSARAHA [id number] [place] [address] [place] WBC (Bld) [#/Vol] 6.36 10*3/uL Normal 3.70-11.00 [facility] Comment on above: Order Comment: Speci men Type: BLOOD SPECIMENOrdering Facility: [facility] Address: [address] [place] [address] Performed By: #### 5 7021-8 ####[facility]PITALNCSARAHA [id number] [address] [place] Lolita 04-22-2024 HALIMAN Telephone (INTRufinaWS) ROSALINDA RUSSO ([id number]) 1970 F Date Time Provider Department 04/22/24 JUDITH HOWELL During your visit today, we recorded the following information about you: Judith Howell APRN.HALIMA 04/22/2024 8:02 AM Signed No concerns in blood work that would result in her abnormal menses. She needs to see gynecology and if she would like, I could put in the Ultrasound as discussed in appointment. Thank you Judith Howell APRN.Wojciech Ca MA 04/22/2024 9:17 AM Signed Left message to call office. 04/22/2024 9:17 AM Leesa Gann RN 04/22/2024 9:33 AM Signed Patient notified of results and provider's instructions. Patient verbalizes understanding. Patient states that she will reach out to gynecology. If she can't be seen sooner then she will have provider place ultrasound order. Leesa Gann RN Allergies As of Date: 04/22/2024 (No Known Allergies) Date Reviewed: 04/20/2024 Reviewed by: Lily Delarosa MA - Fully Assessed Reason for Visit: Results [95] Prescriptions as of 04/22/2024 - dasatinib (SPRYCEL) 100 mg tablet Take 1 tablet (100 mg) by mouth once daily. - amLODIPine (NORVASC) 2.5 mg tablet Take 1 tablet by mouth once daily. - lisinopril-hydroCHLORO thiazide (ZESTORETIC) 20-12.5 mg per tablet Take 1 tablet by mouth once daily. - buPROPion XL (WELLBUTRIN XL) 300 mg 24 hr tablet Take 1 tablet by mouth once daily. - Azelaic Acid (FINACEA) 15 % gel Apply 1 application to affected area two times a day. - acetaminophen (TYLENOL EXTRA STRENGTH) 500 mg tablet Take 1,000 mg by mouth every 8 hours as needed. - SYNTHROID 100 mcg tablet Take 1 tablet by mouth once daily. Take on empty stomach - Cholecalciferol, Vitamin D3, 2,000 unit cap Take 1 tablet by mouth once daily. Problem List As Of Date 04/22/2024 Noted Resolved Acquired hypothyroidism [E03.9] 11/16/2015 Acne rosacea [L71.9] 12/14/2015 Obesity (BMI 30.0-34.9) [E66.9] 03/13/2017 09/10/2022 Benign hypertension [I10] 09/03/2017 Encounter Status:Closed by LEESA GANN on 04/22/24 Normal [facility] Basic metabolic 2000 panelon 04-21-2024 Anion gap [Moles/Vol] 12 mmol/L Normal 8-15 [facility] Comment on above: Order Comment: Speci men Type: BLOOD SPECIMENOrdering Facility: [facility] Address: [address] [place] [address] [place] [address] Performed By: #### 2 4321-2 ####[facility] MILLTOWNCLIA [id number] [place] [address] [place] Calcium [Mass/Vol] 9.7 mg/dL Normal 8.5-10.2 [facility] Comment on above: Order Comment: Speci men Type: BLOOD SPECIMENOrdering Facility: [facility] Address: [address] [place] [address] Performed By: #### 2 4321-2 ####[facility] MILLTOWNCLIA [id number] [place] [address] [place] Chloride [Moles/Vol] 99 mmol/L Normal 98-107 [facility] Comment on above: Order Comment: Speci men Type: BLOOD SPECIMENOrdering Facility: [facility] Address: [address] [place] [address] Performed By: #### 2 4321-2 ####[facility] COL[facility]BUSLIA [id number] [place] [address] [place] CO2 [Moles/Vol] 24 mmol/L Normal 22-30 [facility] Comment on above: Order Comment: Speci men Type: BLOOD SPECIMENOrdering Facility: [facility] Address: [address] [place] [address] Performed By: #### 2 4321-2 ####[facility] MILLWPRLIA [id number] [place] [address] [place] Creatinine [Mass/Vol] 0.87 mg/dL Normal 0.58-0.96 [facility] Comment on above: Order Comment: Speci men Type: BLOOD SPECIMENOrdering Facility: [facility] Address: [address] [place] [address] Performed By: #### 2 4321-2 ####[facility]ITALNCLIA [id number] [place] [address] [place] Creatinine and Glomerular filtration rate.predicted panel (S/P/Bld) 80 mL/min/1.73m??? Normal >=60 [facility] Comment on above: Order Comment: Ryan rangel Type: BLOOD SPECIMENOrdering Facility: [facility] Address: [address] [place] [address] Result Comment: Angie mated Glomerular Filtration Rate (eGFR) is calculated using the 2020 CKD-EPI creatinine equation. This equation utilizes serum creatinine, sex, and age as parameters. The creatinine assay has traceable calibration to isotope dilution-mass spectrometry. Refer to KDIGO guidelines for clinical interpretation. In patients with unstable renal function, e.g. those with acute kidney injury, the eGFR may not accurately reflect actual GFR. Performed By: #### 2 4321-2 ####[facility] [id number] [place] [address] [place] Glucose [Mass/Vol] 95 mg/dL Normal 74-99 [facility] Comment on above: Order Comment: Ryan rangel Type: BLOOD SPECIMENOrdering Facility: [facility] Address: [address] [place] [address] Result Comment: The [place] Diabetes Association (ADA) provides guidance for cutoff values for fasting glucose and random glucose. The ADA defines fasting as no caloric intake for at least 8 hours. Fasting plasma glucose results between 100 to 125 mg/dL indicate increased risk for diabetes (prediabetes). Fasting plasma glucose results greater than or equal to 126 mg/dL meet the criteria for diagnosis of diabetes. In the absence of unequivocal hyperglycemia, results should be confirmed by repeat testing. In a patient with classic symptoms of hyperglycemia or hyperglycemic crisis, random plasma glucose results greater than or equal to 200 mg/dL meet the criteria for diagnosis of diabetes. Reference: Standards of Medical Care in Diabetes 2016, [place] [employer]. Diabetes Care. 2016.39(Suppl 1). Performed By: #### 2 4321-2 ####[facility] [id number] [place] [address] [place] Potassium [Moles/Vol] 4.1 mmol/L Normal 3.7-5.1 [facility] Comment on above: Order Comment: Speci men Type: BLOOD SPECIMENOrdering Facility: [facility] Address: [address] [place] [address] Performed By: #### 2 4321-2 ####[facility]OSPITALNCNIMO [id number] [place] [address] [place] Sodium [Moles/Vol] 135 mmol/L Low 136-144 [facility] Comment on above: Order Comment: Speci men Type: BLOOD SPECIMENOrdering Facility: [facility] Address: [address] [place] [address] Performed By: #### 2 4321-2 ####[facility] [id number] [place] [address] [place] Urea nitrogen [Mass/Vol] 14 mg/dL Normal 7-21 [facility] Comment on above: Order Comment: Speci men Type: BLOOD SPECIMENOrdering Facility: [facility] Address: [address] [place] [address] Performed By: #### 2 4321-2 ####[facility]ITALNCLIA [id number] [place] [address] [place] CBC W Auto Differential pane l (Bld)on 04-21-2024 Basophils (Bld) [#/Vol] 0.07 10*3/uL Normal <0.11 [facility] Comment on above: Order Comment: Speci men Type: BLOOD SPECIMEN [facility] Address: [address] [place] [address] Performed By: #### 5 7021-8 #### [facility] CLIA [id number] [address] [place] [address] [place] Basophils/100 WBC (Bld) 1.1 % Normal [facility] Comment on above: Order Comment: Speci men Type: BLOOD SPECIMEN [facility] Address: [address] [place] [address] Performed By: #### 5 7021-8 #### [facility] CLIA [id number] [address] [place] [address] [place] Differential cell count method Nom (Bld) Auto Normal [facility] Comment on above: Order Comment: Speci men Type: BLOOD SPECIMEN [facility] Address: [address] [place] [address] Performed By: #### 5 7021-8 #### [facility] CLIA [id number] [address] [place] [address] [place] Eosinophils (Bld) [#/Vol] 0.19 10*3/uL Normal <0.46 [facility] Comment on above: Order Comment: Speci men Type: BLOOD SPECIMEN [facility] Address: [address] [place] [address] Performed By: #### 5 7021-8 #### [facility] CLIA [id number] [address] [place] [address] [place] Eosinophils/100 WBC (Bld) 3.0 % Normal [facility] Comment on above: Order Comment: Speci men Type: BLOOD SPECIMEN [facility] Address: [address] [place] [address] Performed By: #### 5 7021-8 #### [facility] CLIA [id number] [address] [place] [address] [place] Erythrocyte distribution width (RBC) [Ratio] 12.9 % Normal 11.5-15.0 [facility] Comment on above: Order Comment: Speci men Type: BLOOD SPECIMEN [facility] Address: [address] [place] [address] Performed By: #### 5 7021-8 #### [facility] CLIA [id number] [address] [place] [address] [place] Hematocrit (Bld) [Volume fraction] 38.9 % Normal 36.0-46.0 [facility] Comment on above: Order Comment: Speci men Type: BLOOD SPECIMEN [facility] Address: [address] [place] [address] Performed By: #### 5 7021-8 #### [facility] CLIA [id number] [address] [place] [address] [place] Hemoglobin (Bld) [Mass/Vol] 13.5 g/dL Normal 11.5-15.5 [facility] Comment on above: Order Comment: Speci men Type: BLOOD SPECIMEN [facility] Address: [address] [place] [address] Performed By: #### 5 7021-8 #### [facility] CLIA [id number] [address] [place] [address] [place] Immature granulocytes (Bld) [#/Vol] 10*3/uL Normal <0.10 [facility] Comment on above: Order Comment: Speci men Type: BLOOD SPECIMEN [facility] Address: [address] [place] [address] Performed By: #### 5 7021-8 #### [facility] CLIA [id number] [address] [place] [address] [place] Immature granulocytes/100 WBC (Bld) 0.2 % Normal [facility] Comment on above: Order Comment: Speci men Type: BLOOD SPECIMEN [facility] Address: [address] [place] [address] Performed By: #### 5 7021-8 #### [facility] CLIA [id number] [address] [place] [address] [place] Lymphocytes (Bld) [#/Vol] 1.46 10*3/uL Normal 1.00-4.00 [facility] Comment on above: Order Comment: Speci men Type: BLOOD SPECIMEN [facility] Address: [address] [place] [address] Performed By: #### 5 7021-8 #### [facility] CLIA [id number] [address] [place] [address] [place] Lymphocytes/100 WBC (Bld) 22.8 % Normal [facility] Comment on above: Order Comment: Speci men Type: BLOOD SPECIMEN [facility] Address: [address] [place] [address] Performed By: #### 5 7021-8 #### [facility] CLIA [id number] [address] [place] [address] [place] MCH (RBC) [Entitic mass] 32.3 pg Normal 26.0-34.0 [facility] Comment on above: Order Comment: Speci men Type: BLOOD SPECIMEN [facility] Address: [address] [place] [address] Performed By: #### 5 7021-8 #### [facility] CLIA [id number] [address] [place] [address] [place] MCHC (RBC) [Mass/Vol] 34.7 g/dL Normal 30.5-36.0 [facility] Comment on above: Order Comment: Speci men Type: BLOOD SPECIMEN [facility] Address: [address] [place] [address] Performed By: #### 5 7021-8 #### [facility] CLIA [id number] [address] [place] [address] [place] MCV (RBC) [Entitic vol] 93.1 fL Normal 80.0-100.0 [facility] Comment on above: Order Comment: Speci men Type: BLOOD SPECIMEN [facility] Address: [address] [place] [address] Performed By: #### 5 7021-8 #### [facility] CLIA [id number] [address] [place] [address] [place] Monocytes (Bld) [#/Vol] 0.62 10*3/uL Normal <0.87 [facility] Comment on above: Order Comment: Speci men Type: BLOOD SPECIMEN [facility] Address: [address] [place] [address] Performed By: #### 5 7021-8 #### [facility] CLIA [id number] [address] [place] [address] [place] Monocytes/100 WBC (Bld) 9.7 % Normal [facility] Comment on above: Order Comment: Speci men Type: BLOOD SPECIMEN [facility] Address: [address] [place] [address] Performed By: #### 5 7021-8 #### [facility] CLIA [id number] [address] [place] [address] [place] Neutrophils (Bld) [#/Vol] 4.05 10*3/uL Normal 1.45-7.50 [facility] Comment on above: Order Comment: Speci men Type: BLOOD SPECIMEN [facility] Address: [address] [place] [address] Performed By: #### 5 7021-8 #### [facility] CLIA [id number] [address] [place] [address] [place] Neutrophils/100 WBC (Bld) 63.2 % Normal [facility] Comment on above: Order Comment: Speci men Type: BLOOD SPECIMEN [facility] Address: [address] [place] [address] Performed By: #### 5 7021-8 #### [facility] CLIA [id number] [address] [place] [address] [place] Nucleated RBC (Bld) [#/Vol] 10*3/uL Normal <0.01 [facility] Comment on above: Order Comment: Speci men Type: BLOOD SPECIMEN [facility] Address: [address] [place] [address] Performed By: #### 5 7021-8 #### [facility] CLIA [id number] [address] [place] [address] [place] Nucleated RBC/100 WBC (Bld) [Ratio] 0.0 /100 WBC Normal [facility] Comment on above: Order Comment: Speci men Type: BLOOD SPECIMEN [facility] Address: [address] [place], [place] [address] Performed By: #### 5 7021-8 #### [facility] CLIA [id number] [address] [place] [address] [place] Platelet mean volume (Bld) [Entitic vol] 10.0 fL Normal 9.0-12.7 [facility] Comment on above: Order Comment: Speci men Type: BLOOD SPECIMEN [facility] Address: [address] [place], [place] [address] Performed By: #### 5 7021-8 #### [facility] CLIA [id number] [address] [place] [address] [place] Platelets (Bld) [#/Vol] 167 10*3/uL Normal 150-400 [facility] Comment on above: Order Comment: Speci men Type: BLOOD SPECIMEN Ordering Facility: [facility] Address: [address] [place] [address] Performed By: #### 5 7021-8 #### [facility] CLIA [id number] [address] [place] [address] [place] RBC (Bld) [#/Vol] 4.18 10*6/uL Normal 3.90-5.20 [facility] Comment on above: Order Comment: Speci men Type: BLOOD SPECIMEN Ordering Facility: [facility] Address: [address] [place] [address] Performed By: #### 5 7021-8 #### [facility] CLIA [id number] [address] [place] [address] [place] WBC (Bld) [#/Vol] 6.40 10*3/uL Normal 3.70-11.00 [facility] Comment on above: Order Comment: Speci men Type: BLOOD SPECIMEN Ordering Facility: [facility] Address: [address] [place] [address] Performed By: #### 5 7021-8 #### [facility] CLIA [id number] [address] [place] [address] [place] HCG Preg Ur Qlon 04-21-2024 HCG ( test) Ql (U) Negative Normal Negative [facility] Comment on above: Order Comment: Speci men Type: URINE SPECIMENOrdering Facility: [facility] Address: [address] [place] [address] Result Comment: This test is intended to aid in the early detection of . Very dilute urine samples, as indicated by a low specific gravity, may not contain account development representative levels of hCG. This test detects intact hCG only. This test does not reliably detect hCG degradation products, including free-beta subunit and beta-core fragment. Therefore, this test may show reduced reactivity in urine after 8 weeks gestation. A number of conditions other than , including trophoblastic disease and certain non-trophoblastic neoplasms cause elevated levels of hCG. As with any assay employing mouse antibodies, the possibility exists for interference by human anti-mouse antibodies (HAMA) in the specimen. The test provides a presumptive diagnosis for . Performed By: #### 2 106-3 ####[facility] LABCLIA [id number] [facility] [id number] [id number] [place] T3Free SerPl-mCncon 04-21-20 24 Free T3 [Mass/Vol] 2.2 pg/mL Low 2.3-4.1 [facility] Comment on above: Order Comment: Speci men Type: BLOOD SPECIMENOrdering Facility: [facility] Address: [address] [place] [address] Performed By: #### 3 051-0, 3016-3, 3024-7 ####[facility] LABIA [id number] [place] [address] [place] T4 Free SerPl-mCncon 024 Free T4 [Mass/Vol] 1.4 ng/dL Normal 0.9-1.7 [facility] Comment on above: Order Comment: Speci men Type: BLOOD SPECIMENOrdering Facility: [facility] Address: [address] [place] [address] Performed By: #### 3 051-0, 3016-3, 3024-7 ####[facility] LABIA [id number] [place] [address] [place] TSH SerPl-aCncon 04-21-2024 TSH Qn 2.130 m[IU]/L Normal 0.270-4.200 [facility] Comment on above: Order Comment: Speci men Type: BLOOD SPECIMENOrdering Facility: [facility] Address: [address] [place] [address] Performed By: #### 3 051-0, 3016-3, 3024-7 ####[facility] [id number] [address] [place] CNOVon 04-20-2024 CNOV Office Visit (INTMWS ) ROSALINDA RUSSO ([id number]) 1970 F Date Time Provider Department 04/20/24 11:20 AM JUDITH HOWELL INTEILZ During your visit today, we recorded the following information about you: Pulse Respiration Blood pressure Weight 84/minute 16/minute 118/72 72.8 kg Judith Howell APRN.CNP 04/20/2024 11:48 AM Signed CC: Patient presents with: Menstrual Problem: Irregular spotting, no regular periods for months [facility] Rosalinda Russo is a 54 year old female who presents today for menstrual spotting. Started spotting 2 weeks ago without known cause. Last normal period was this past October. Mother menopause age unknown as she had a hysterectomy at a young age. Denies recent illness, fever, chills, abdominal pain, N/V/D, difficulty or pain urinating, vaginal drainage, new sexual partners, shortness of breath, chest pain, palpitation, dizziness, or weakness. Due for gynecology visit and vaginal exam. Current provider in [place] so may want to see a local provider. Does have history of hypothyroidism: Taking medication as ordered. Denies any abnormal change in weight or energy. REVIEW OF SYSTEMS See [facility] PAST MEDICAL HISTORY 09/03/2017: Benign hypertension No date: Hypothyroid No date: Rosacea PAST SURGICAL HISTORY 01/2013: SECTION HX Comment: [facility] 2009: CHOLECYSTECTOMY Comment: [facility] 11/2013: HERNIA REPAIR HX Comment: [facility]urtado [facility] 07/2013: LAPAROSCOPY REPAIR INCISIONAL HERNIA REDUCIBLE Comment: [facility] ALLERGIES Patient has no known allergies. MEDICATIONS dasatinib (SPRYCEL) 100 mg tablet Take 1 tablet (100 mg) by mouth once daily. amLODIPine (NORVASC) 2.5 mg tablet Take 1 tablet by mouth once daily. lisinopril-hydroCHLORO thiazide (ZESTORETIC) 20-12.5 mg per tablet Take 1 tablet by mouth once daily. buPROPion XL (WELLBUTRIN XL) 300 mg 24 hr tablet Take 1 tablet by mouth once daily. Azelaic Acid (FINACEA) 15 % gel Apply 1 application to affected area two times a day. acetaminophen (TYLENOL EXTRA STRENGTH) 500 mg tablet Take 1,000 mg by mouth every 8 hours as needed. SYNTHROID 100 mcg tablet Take 1 tablet by mouth once daily. Take on empty stomach Cholecalciferol, Vitamin D3, 2,000 unit cap Take 1 tablet by mouth once daily. FAMILY HISTORY Problem Relation Age of Onset Depression Mother Diabetes Father Cancer Father liver Hypertension Father Blood Clots Sister Hypertension Sister Alcohol abuse Sister Stroke Maternal Grandmother Blindness Maternal Grandmother Hypertension Maternal Grandmother Diabetes Maternal Grandmother Hypertension Maternal Grandfather Diabetes Maternal Grandfather Heart Attack Paternal Grandmother Hypertension Paternal Grandfather Stroke Paternal Grandfather Diabetes Paternal Grandfather Social History Tobacco Use Smoking status: Never Smokeless tobacco: Never Vaping Use Vaping status: Never Used Substance Use Topics Alcohol use: Not Currently Comment: rarely Drug use: No PHYSICAL EXAM BP 118/72 Pulse 84 Resp 16 Wt 72.8 kg (160 lb 7.9 oz) LMP 10/14/2023 (Approximate) SpO2 98% BMI 28.09 kg/m? General Appearance: well appearing, in no acute distress, alert Eyes: conjunctiva pink and moist, no icterus, sclera white, non-injected Lungs: Lungs clear to auscultation. No wheezing, rhonchi, rales. Heart: RRR without murmur, gallop, or rubs. No ectopy Abdomen: Abdomen soft, non-tender. Bowel sounds normal. No masses, organomegaly Health maintenance reviewed with patient: Depression Screening Never done Anxiety Screening Never done HIV Screening Never done Colorectal Cancer Screening Never done Mammogram Screening due on 03/05/2018 Cervical Cancer Screening due on 01/17/2022 Covid-19 Vaccine( - 2022- season) due on 04/10/2024 Influenza Vaccine(1) due on 04/10/2024 DTaP,Tdap,Td Vaccine(2 - Td or Tdap) due on 12/16/2024 Hepatitis B Vaccine(1 of 3 - 19+ 3-dose series) due on 12/16/2024 Shingrix Vaccine(1 of 2) due on 12/16/2024 Pneumococcal Vaccine(1 of 2 - PCV) due on 12/16/2024 Annual PCP Team Chronic Disease Visit due on 12/16/2024 BP Controlled (<130/80) due on 03/01/2025 Diabetes Screening due on 03/01/2027 Lipid Screening due on 06/30/2028 Hepatitis C Screening Completed HPV Vaccine Aged Out DATA REVIEWED: No new labs ASSESSMENT/PLAN: 1. Abnormal menses - ICD9: 626.9, ICD10: N92.6 (primary diagnosis) Possible due to perimenopause but will further evaluate. If lab work normal/negative, then recommend US - HCG, QUALITATIVE, URINE - THYROID STIMULATING HORMONE - T4 FREE/FREE THYROXINE - T3, FREE - COMPLETE BLOOD COUNT AND DIFFERENTIAL - BASIC METABOLIC PANEL - CONSULT TO GYNECOLOGY 2. Acquired hypothyroidism - ICD9: 244.9, ICD10: E03.9 - Instructed patient on (more content not included)... Normal [facility] CNOVSPon 03-01-2024 CNOVSP Visit (SP) Office (HEMAWS) ROSALINDA RUSSO ([id number]) 1970 F Date Time Provider Department 03/01/24 10:40 AM PRINCE URIBE During your visit today, we recorded the following information about you: Temperature Pulse Blood pressure Weight 98.7 degrees 79/minute 120/73 73.3 kg Prince Uribe MD 03/01/2024 12:52 PM Signed (Elements copied from my note datedM2023 , have been reviewed and updated where appropriate, and all reflect current assessment and medical decision making from today's encounter, March 01, 2024) HISTORY OF PRESENT ILLNESS: Rosalinda Russo is a 53 year old female referred from ER with WBC 380K. Feels well, no fevers, active. Was in ER with chest pains, atypical, work up for this negative. Detailed review of labs Here for follow up, on Gleevec since Apr 14, 2023. Switched to dasatinib October 2023 due to persistent transcript Here for follow up, feels well, reviewed labs in detail, also NCCN guidelines. 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 Continue dasatinib. PCR testing 3 months. Written and verbal health teaching given to patient, patient verbalizes understanding and agrees with treatment plan. PAST MEDICAL HISTORY Diagnosis Date Benign hypertension 09/03/2017 Hypothyroid Rosacea PAST SURGICAL HISTORY Procedure Laterality Date SECTION HX 01/2013 [facility] CHOLECYSTECTOMY 2009 [facility] HERNIA REPAIR HX 11/2013 [facility] LAPAROSCOPY REPAIR INCISIONAL HERNIA REDUCIBLE 07/2013 [facility] [place] FAMILY HISTORY Problem Relation Age of Onset Depression Mother Diabetes Father Cancer Father liver Hypertension Father Blood Clots Sister Hypertension Sister Alcohol abuse Sister Stroke Maternal Grandmother Blindness Maternal Grandmother Hypertension Maternal Grandmother Diabetes Maternal Grandmother Hypertension Maternal Grandfather Diabetes Maternal Grandfather Heart Attack Paternal Grandmother Hypertension Paternal Grandfather Stroke Paternal Grandfather Diabetes Paternal Grandfather Social History Tobacco Use Smoking status: Never Smokeless tobacco: Never Vaping Use Vaping Use: Never used Substance Use Topics Alcohol use: Not Currently Comment: rarely Drug use: No ALLERGIES: ALLERGIES No Known Allergies CURRENT OUTPATIENT MEDICATIONS: dasatinib (SPRYCEL) 100 mg tablet Take 1 tablet (100 mg) by mouth once daily. amLODIPine (NORVASC) 2.5 mg tablet Take 1 tablet by mouth once daily. lisinopril-hydroCHLORO thiazide (ZESTORETIC) 20-12.5 mg per tablet Take 1 tablet by mouth once daily. buPROPion XL (WELLBUTRIN XL) 300 mg 24 hr tablet Take 1 tablet by mouth once daily. Azelaic Acid (FINACEA) 15 % gel Apply 1 application to affected area two times a day. acetaminophen (TYLENOL EXTRA STRENGTH) 500 mg tablet Take 1,000 mg by mouth every 8 hours as needed. SYNTHROID 100 mcg tablet Take 1 tablet by mouth once daily. Take on empty stomach Cholecalciferol, Vitamin D3, 2,000 unit cap Take 1 tablet by mouth once daily. potassium chloride (K-TAB) 10 mEq tablet Take 1 tablet by mouth daily with breakfast. cyanocobalamin (VITAMIN B-12) 1,000 mcg tab Take 1 tablet by mouth once daily. REVIEW OF SYSTEMS: GENERAL: No fever, night sweats, weight loss or malaise. All other reviewed and negative other than HPI. PHYSICAL EXAMINATION: VITAL SIGNS: BP 120/73 Pulse 79 Temp (Src) 98.7 (Oral) Wt 161 lb 8 oz (73.3kg) SpO2 97% LMP 10/14/2023 GENERAL APPEARANCE: Well appearing, in no acute distress, alert and oriented x3, well-hydrated, well nourished. No splenomegaly HEART: Reg no gallops LUNGS: CTA I spent a total of 30 minutes on the date of the service which included preparing to see the patient, [id number] patient care, completing clinical documentation, obtaining and/or reviewing separately obtained history, counseling and educating the patient/family/caregiv er, ordering medications, tests, or procedures, communicating with other HCPs (not separately reported), independently interpreting results (not separately reported), communicating results to the patient/family/caregiv er, and care coordination (not separately reported). 45 Electronically Signed: Prince Uribe MD March 01, 2024 Allergies As of Date: 03/01/2024 (No Known Allergies) Date Reviewed: 12/23/2023 Reviewed by: Candace Soto Ma, MA - Fully Assessed Reason for Visit: Established Patient [175] Primary Visit Diagnosis:CML (chronic myeloid leukemia) (HCC) [C92.10] Order(s):COMPREHENSIVE METABOLIC PANEL [SQCMP] Order #: [id number] FUTURE BCR/ABL1 P210 QUANTITATIVE PCR BLOOD [DCO502KQ] Order #: [id number] (more content not included)... Normal [facility] Comprehensive metabolic 2000 panelOrdered By: Nely Lovelace on 03-01-2024 Albumin [Mass/Vol] 4.7 g/dL 3.9 - 4.9 g/dL [facility] ALP [Catalytic activity/Vol] 53 U/L 34 - 123 U/L [facility] ALT [Catalytic activity/Vol] 16 U/L 7 - 38 U/L [facility] Anion gap [Moles/Vol] 8 mmol/L 8 - 15 mmol/L [facility] AST [Catalytic activity/Vol] 16 U/L 13 - 35 U/L [facility] Bilirubin [Mass/Vol] 0.8 mg/dL 0.2 - 1 .3 mg/dL [facility] Calcium [Mass/Vol] 9.6 mg/dL 8.5 - 10. 2 mg/dL [facility] Chloride [Moles/Vol] 101 mmol/L 98 - 10 7 mmol/L [facility] CO2 [Moles/Vol] 28 mmol/L 22 - 30 mmol/L [facility] Creatinine [Mass/Vol] 0.87 mg/dL 0.58 - 0.96 mg/dL [facility] GFR/1.73 sq M.predicted among non-blacks MDRD (S/P/Bld) [Vol rate/Area] 80 mL/min/{1.73_m2} - PINF [facility] Comment on above: Estimated Glomerular Filtration Rate (eGFR) is calculated using the 202 CKD-EPI creatinine equation. This equation utilizes serum creatinine, sex, and age as parameters. The creatinine assay has traceable calibration to isotope dilution-mass spectrometry. Refer to KDIGO guidelines for clinical interpretation. In patients with unstable renal function, e.g. those with acute kidney injury, the eGFR may not accurately reflect actual GFR. Glucose [Mass/Vol] 92 mg/dL 74 - 99 mg/dL [facility] Comment on above: The [place] Diab[place] s Association (ADA) provides guidance for cutoff values for fasting glucose and random glucose. The ADA defines fasting as no caloric intake for at least 8 hours. Fasting plasma glucose results between 100 to 125 mg/dL indicate increased risk for diabetes (prediabetes). Fasting plasma glucose results greater than or equal to 126 mg/dL meet the criteria for diagnosis of diabetes. In the absence of unequivocal hyperglycemia, results should be confirmed by repeat testing. In a patient with classic symptoms of hyperglycemia or hyperglycemic crisis, random plasma glucose results greater than or equal to 200 mg/dL meet the criteria for diagnosis of diabetes. Reference: Standards of Medical Care in Diabetes 2016, [place] Diabetes Association. Diabetes Care. 2016.39(Suppl 1). Interpretation and review of laboratory results Normal [facility] Potassium [Moles/Vol] 3.7 mmol/L 3.7 - 5.1 mmol/L [facility] Protein [Mass/Vol] 6.8 g/dL 6.3 - 8.0 g/dL [facility] Sodium [Moles/Vol] 137 mmol/L 136 - 144 mmol/L [facility] Urea nitrogen [Mass/Vol] 14 mg/dL 7 - 21 mg/dL [facility] Comprehensive metabolic 2000 panelon 03-01-2024 Albumin [Mass/Vol] 4.7 g/dL Normal 3.9-4.9 [facility] Comment on above: Order Comment: Speci men Type: BLOOD SPECIMENOrdering Facility: [facility] Address: [address] [place] [address] Performed By: #### 2 4323-8 ####[facility] [id number] [place] [address] [place] ALP [Catalytic activity/Vol] 53 U/L Normal 34-123 [facility] Comment on above: Order Comment: Speci men Type: BLOOD SPECIMENOrdering Facility: [facility] Address: [address] [place] [address] Performed By: #### 2 4323-8 ####[facility] MILLTOWNCLIA [id number] [place] [address] [place] ALT [Catalytic activity/Vol] 16 U/L Normal 7-38 [facility] Comment on above: Order Comment: Speci men Type: BLOOD SPECIMENOrdering Facility: [facility] Address: [address] [place] [address] Performed By: #### 2 4323-8 ####[facility] [id number] [place] [address] [place] Anion gap [Moles/Vol] 8 mmol/L Normal 8-15 [facility] Comment on above: Order Comment: Speci men Type: BLOOD SPECIMENOrdering Facility: [facility] Address: [address] [place] [address] Performed By: #### 2 4323-8 ####[facility] MILLTOWNCLIA [id number] [place] [address] [place] AST [Catalytic activity/Vol] 16 U/L Normal 13-35 [facility] Comment on above: Order Comment: Speci men Type: BLOOD SPECIMENOrdering Facility: [facility] Address: [address] [place] [address] Performed By: #### 2 4323-8 ####[facility] MILLCELINANCLIA [id number] [place] [address] [place] Bilirubin [Mass/Vol] 0.8 mg/dL Normal 0.2-1.3 [facility] Comment on above: Order Comment: Speci men Type: BLOOD SPECIMENOrdering Facility: [facility] Address: [address] [place] [address] Performed By: #### 2 4323-8 ####[facility] MILLTOWNCLIA [id number] [place] [address] [place] Calcium [Mass/Vol] 9.6 mg/dL Normal 8.5-10.2 [facility] Comment on above: Order Comment: Speci men Type: BLOOD SPECIMENOrdering Facility: [facility] Address: [address] [place] [address] Performed By: #### 2 4323-8 ####[facility] MILLTOWNCLIA [id number] [place] [address] [place] Chloride [Moles/Vol] 101 mmol/L Normal 98-107 [facility] Comment on above: Order Comment: Speci men Type: BLOOD SPECIMENOrdering Facility: [facility] Address: [address] [place] [address] Performed By: #### 2 4323-8 ####[facility] MILLWNCLIA [id number] [place] [address] [place] CO2 [Moles/Vol] 28 mmol/L Normal 22-30 [facility] Comment on above: Order Comment: Speci men Type: BLOOD SPECIMENOrdering Facility: [facility] Address: [address] [place] [address] Performed By: #### 2 4323-8 ####[facility] MILLTOWNCLIA [id number] [place] [address] [place] Creatinine [Mass/Vol] 0.87 mg/dL Normal 0.58-0.96 [facility] Comment on above: Order Comment: Speci men Type: BLOOD SPECIMENOrdering Facility: [facility] Address: [address] [place] [address] Performed By: #### 2 4323-8 ####[facility] MILLTOWNCLIA [id number] [place] [address] [place] Creatinine and Glomerular filtration rate.predicted panel (S/P/Bld) 80 mL/min/1.73m??? Normal >=60 [facility] Comment on above: Order Comment: Ryan rangel Type: BLOOD SPECIMENOrdering Facility: [facility] Address: [address] [place] [address] Result Comment: Angie mated Glomerular Filtration Rate (eGFR) is calculated using the 2020 CKD-EPI creatinine equation. This equation utilizes serum creatinine, sex, and age as parameters. The creatinine assay has traceable calibration to isotope dilution-mass spectrometry. Refer to KDIGO guidelines for clinical interpretation. In patients with unstable renal function, e.g. those with acute kidney injury, the eGFR may not accurately reflect actual GFR. Performed By: #### 2 4323-8 ####[facility] [id number] [place] [address] [place] Glucose [Mass/Vol] 92 mg/dL Normal 74-99 [facility] Comment on above: Order Comment: Ryan rangel Type: BLOOD SPECIMENOrdering Facility: [facility] Address: [address] [place] [address] Result Comment: The [place] Diabetes Association (ADA) provides guidance for cutoff values for fasting glucose and random glucose. The ADA defines fasting as no caloric intake for at least 8 hours. Fasting plasma glucose results between 100 to 125 mg/dL indicate increased risk for diabetes (prediabetes). Fasting plasma glucose results greater than or equal to 126 mg/dL meet the criteria for diagnosis of diabetes. In the absence of unequivocal hyperglycemia, results should be confirmed by repeat testing. In a patient with classic symptoms of hyperglycemia or hyperglycemic crisis, random plasma glucose results greater than or equal to 200 mg/dL meet the criteria for diagnosis of diabetes. Reference: Standards of Medical Care in Diabetes 2016, [place] Diabetes Association. Diabetes Care. 2016.39(Suppl 1). Performed By: #### 2 4323-8 ####[facility] [id number] [place] [address] [place] Potassium [Moles/Vol] 3.7 mmol/L Normal 3.7-5.1 [facility] Comment on above: Order Comment: Speci men Type: BLOOD SPECIMENOrdering Facility: [facility] Address: [address] [place] [address] Performed By: #### 2 4323-8 ####[facility]ITAL[facility]CL[facility] [id number] [place] [address] [place] Protein [Mass/Vol] 6.8 g/dL Normal 6.3-8.0 [facility] Comment on above: Order Comment: Speci men Type: BLOOD SPECIMENOrdering Facility: [facility] Address: [address] [place] [address] Performed By: #### 2 4323-8 ####[facility] [id number] [place] [address] [place] Sodium [Moles/Vol] 137 mmol/L Normal 136-144 [facility] Comment on above: Order Comment: Speci men Type: BLOOD SPECIMENOrdering Facility: [facility] Address: [address] [place] [address] Performed By: #### 2 4323-8 ####[facility] [id number] [place] [address] [place] Urea nitrogen [Mass/Vol] 14 mg/dL Normal 7-21 [facility] Comment on above: Order Comment: Speci men Type: BLOOD SPECIMENOrdering Facility: [facility] Address: [address] [place] [address] Performed By: #### 2 4323-8 ####[facility] [id number] [place] [address] [place] Lolita 02-25-2024 DIGNA Telephone (INTMWS) LISEDANGELOQUANROSALINDA Cornejo ([id number]) 1970 F Date Time Provider Department 02/25/24 JUDITH HOWELL During your visit today, we recorded the following information about you: Judith Howell APRN.HALIMA 02/25/2024 2:52 PM Signed Vit B12 is high. Is she still taking 1000mcg once daily? Thank you Judith Howell APRN.Maria Del Rosario Stein RN 02/25/2024 3:03 PM Signed Pt called and is notified of providers results and question. Pt voices understanding and states she stopped taking the B12 when she saw that he level was high. She said she last took it Thursday night 02/22/24. LOAN Mariscal Joy, APRN.CNP 02/25/2024 3:07 PM Signed Continue to hold and we will discuss rechecking level at next appointment. Thank you Judith Howell APRN.Maria Del Rosario Stein RN 02/25/2024 3:12 PM Signed Pt called and is notified of providers message and instructions. Pt voices understanding. Maria Del Rosario Coleman RN Allergies As of Date: 02/25/2024 (No Known Allergies) Date Reviewed: 12/23/2023 Reviewed by: Candace Soto Ma, VICKY - Fully Assessed Reason for Visit: Results [95] Prescriptions as of 02/25/2024 - potassium chloride (K-TAB) 10 mEq tablet Take 1 tablet by mouth daily with breakfast. - dasatinib (SPRYCEL) 100 mg tablet Take 1 tablet (100 mg) by mouth once daily. - amLODIPine (NORVASC) 2.5 mg tablet Take 1 tablet by mouth once daily. - lisinopril-hydroCHLORO thiazide (ZESTORETIC) 20-12.5 mg per tablet Take 1 tablet by mouth once daily. - buPROPion XL (WELLBUTRIN XL) 300 mg 24 hr tablet Take 1 tablet by mouth once daily. - Azelaic Acid (FINACEA) 15 % gel Apply 1 application to affected area two times a day. - acetaminophen (TYLENOL EXTRA STRENGTH) 500 mg tablet Take 1,000 mg by mouth every 8 hours as needed. - SYNTHROID 100 mcg tablet Take 1 tablet by mouth once daily. Take on empty stomach - cyanocobalamin (VITAMIN B-12) 1,000 mcg tab Take 1 tablet by mouth once daily. - Cholecalciferol, Vitamin D3, 2,000 unit cap Take 1 tablet by mouth once daily. Problem List As Of Date 02/25/2024 Noted Resolved Acquired hypothyroidism [E03.9] 11/16/2015 Acne rosacea [L71.9] 12/14/2015 Obesity (BMI 30.0-34.9) [E66.9] 03/13/2017 09/10/2022 Benign hypertension [I10] 09/03/2017 Encounter Status:Closed by MARIA DEL ROSARIO COLEMAN on 02/25/24 Normal [facility] BCR/ABL1 P190 QUANTITATIVE P CR BLOODon 02-23-2024 BCR/ABL1 P190 INTERPRETATION Normal [facility] Comment on above: Order Comment: Speci men Type: BLOOD SPECIMENOrdering Facility: [facility] Address: [address] [place] [address] Result Comment: BCR/ ABL1 p190 Quantitative PCR Laboratory Accession Number: [id number] Result: UNDETECTED NCN: N/A Interpretation: p190 BCR/ABL1 transcripts were not detected. This result does not exclude the possibility of very low level transcripts below the limit of detection of this assay (>MR4.6), and a result of not detected does not exclude the presence of other BCR/ABL1 transcripts not targeted by this assay. Clinical correlation is suggested. Methodology: RNA was extracted from this sample, and cDNA prepared by reverse audio visual production specialist. Real time PCR was performed using primers for e1a2 BCR/ABL1 fusion transcripts and ABL1 transcripts (qPCR BCR/ABL minor, [employer], [place], [place]). This test does not detect p210 (e13a2 or e14a2) or other rare BCR/ABL1 transcripts. This assay has a limit of quantification of 0.0036% (LR4.4) and limit of detection of 0.0025% (LR4.6). Disclaimer: This test was developed and its performance characteristics determined by [facility] [place] ([facility]). It has not been cleared or approved by the FDA. [facility] is regulated under CLIA as certified to perform high- complexity testing. This test is used for clinical purposes. It should not be regarded as investigational or for research. Testing and interpretation performed at [facility], [address] [place] [address]. CLIA Number: [id number] As reviewed by Nely Verma, PhD, FACMG Performed By: #### 2 10ISBP, 190NCBP ####[facility] LABCLIA [id number] [place] [address] [place]#### P190P, P210P ####[facility] LIMSCLIA [id number] [place] [address] [place] BCR/ABL1 P326LSK BLOOD( AND BCR/ABL1:ABL1)on 02-23-2024 BCR/ABL1 P190 NCN(%BCR/ABL1:ABL1) N/A Normal [facility] Comment on above: Order Comment: Speci men Type: BLOOD SPECIMENOrdering Facility: [facility] Address: [address] [place] [address] Performed By: #### 2 10ISBP, 190NCBP ####[facility] LABIA [id number] [place] [address] [place]#### P190P, P210P ####[facility] LIMSCLIA [id number] [place] [address] [place] BCR/ABL1 P210 %IS PANELon BCR/ABL1 P210 %IS 1.8835 Normal [facility] Comment on above: Order Comment: Speci men Type: BLOOD SPECIMENOrdering Facility: [facility] Address: [address] [place] [address] Performed By: #### 2 10ISBP, 190NCBP ####[facility] LABCLIA [id number] [place] AVENUEDESK [id number]#### P190P, P210P ####[facility] LIMSCLIA [id number] [address] [place] BCR/ABL1 P210 MR 1.73 Normal [facility] Comment on above: Order Comment: Speci men Type: BLOOD SPECIMENOrdering Facility: [facility] Address: [address] [place] [address] Performed By: #### 2 10ISBP, 190NCBP ####[facility] LABCLIA [id number] [address] [place]#### P190P, P210P ####[facility] LIMSCLIA [id number] [address] STATES OF [facility] BCR/ABL1 P210 QUANTITATIVE P CR BLOODon 02-23-2024 BCR/ABL1 P210 INTERPRETATION Normal [facility] Comment on above: Order Comment: Speci men Type: BLOOD SPECIMENOrdering Facility: [facility] Address: [address] [place] [address] Result Comment: BCR/ ABL1 p210 Quantitative PCR Laboratory Accession Number: [id number] Result: DETECTED MR: 1.73 %IS: 1.8835 Interpretation: p210 BCR/ABL1 transcripts were detected. Quantitative results are expressed on the International Scale (IS) and a log molecular response (MR) is calculated. On this scale, a value of less than or equal to 0.1% corresponds to a major molecular response (MMR or MR3.0). Methodology: [employer] ([employer]) QuantideX BCR/ABL IS assay is an FDA-cleared in vitro diagnostic test for the quantitation of BCR/ABL1 and ABL1 transcripts in total RNA from whole blood of diagnosed t(9;22) positive chronic myeloid leukemia patients expressing e13a2 and/or e14a2 fusion transcripts. This test does not detect p190 (e1a2) or other rare BCR/ABL1 transcripts. This assay has a limit of quantification and limit of detection of 0.002% IS or MR4.7. References: 1) Pitts et al, Blood 2006;108:28-37; Jacobo et al, Leukemia 2015;29:999-1003 As reviewed by Nely Verma, PhD, FAC Performed By: #### 2 10ISBP, 190NCBP ####[facility] LABCLIA [id number] [place] [address] [place]#### P190P, P210P ####[facility] LIMSCLIA [id number] [place] [address] [place] CBC W Auto Differential pane l (Bld)on 02-23-2024 Basophils (Bld) [#/Vol] 0.07 10*3/uL Normal <0.11 [facility] Comment on above: Order Comment: Speci men Type: BLOOD SPECIMENOrdering Facility: [facility] Address: [address] [place] [address] Performed By: #### 5 7021-8 ####[facility] [id number] [place] [address] [place] Basophils/100 WBC (Bld) 1.1 % Normal [facility] Comment on above: Order Comment: Speci men Type: BLOOD SPECIMENOrdering Facility: [facility] Address: [address] [place] [address] Performed By: #### 5 7021-8 ####[facility] [id number] [place] [address] [place] Differential cell count method Nom (Bld) Auto Normal [facility] Comment on above: Order Comment: Speci men Type: BLOOD SPECIMENOrdering Facility: [facility] Address: [address] [place] [address] Performed By: #### 5 7021-8 ####[facility] COLUMBUSLIA [id number] [place] [address] [place] Eosinophils (Bld) [#/Vol] 0.17 10*3/uL Normal <0.46 [facility] Comment on above: Order Comment: Speci men Type: BLOOD SPECIMENOrdering Facility: [facility] Address: [address] [place] [address] Performed By: #### 5 7021-8 ####[facility] ASHLEY [id number] [place] [address] [place] Eosinophils/100 WBC (Bld) 2.7 % Normal [facility] Comment on above: Order Comment: Speci men Type: BLOOD SPECIMENOrdering Facility: [facility] Address: [address] [place] [address] Performed By: #### 5 7021-8 ####[facility] JOLENECELINAALCIDES [id number] [place] [address] [place] Erythrocyte distribution width (RBC) [Ratio] 12.5 % Normal 11.5-15.0 [facility] Comment on above: Order Comment: Speci men Type: BLOOD SPECIMENOrdering Facility: [facility] Address: [address] [place] [address] Performed By: #### 5 7021-8 ####[facility]ITALNCSARAHA [id number] [place] [address] [place] Hematocrit (Bld) [Volume fraction] 37.2 % Normal 36.0-46.0 [facility] Comment on above: Order Comment: Speci men Type: BLOOD SPECIMENOrdering Facility: [facility] Address: [address] [place] [address] Performed By: #### 5 7021-8 ####[facility]ITALNCLIA [id number] [place] [address] [place] Hemoglobin (Bld) [Mass/Vol] 13.0 g/dL Normal 11.5-15.5 [facility] Comment on above: Order Comment: Speci men Type: BLOOD SPECIMENOrdering Facility: [facility] Address: [address] [place] [address] Performed By: #### 5 7021-8 ####[facility]STITUTEWNCLIA [id number] [place] [address] [place] Immature granulocytes (Bld) [#/Vol] 10*3/uL Normal <0.10 [facility] Comment on above: Order Comment: Speci men Type: BLOOD SPECIMENOrdering Facility: [facility] Address: [address] [place] [address] Performed By: #### 5 7021-8 ####[facility] COLUMBUSLI [id number] [place] [address] [place] Immature granulocytes/100 WBC (Bld) 0.2 % Normal [facility] Comment on above: Order Comment: Speci men Type: BLOOD SPECIMENOrdering Facility: [facility] Address: [address] [place] [address] Performed By: #### 5 7021-8 ####[facility] [id number] [place] [address] [place] Lymphocytes (Bld) [#/Vol] 1.89 10*3/uL Normal 1.00-4.00 [facility] Comment on above: Order Comment: Speci men Type: BLOOD SPECIMENOrdering Facility: [facility] Address: [address] [place] [address] Performed By: #### 5 7021-8 ####[facility] [id number] [place] [address] [place] Lymphocytes/100 WBC (Bld) 30.1 % Normal [facility] Comment on above: Order Comment: Speci men Type: BLOOD SPECIMENOrdering Facility: [facility] Address: [address] [place] [address] Performed By: #### 5 7021-8 ####[facility] [id number] [place] [address] [place] MCH (RBC) [Entitic mass] 33.0 pg Normal 26.0-34.0 [facility] Comment on above: Order Comment: Speci men Type: BLOOD SPECIMENOrdering Facility: [facility] Address: [address] [place] [address] Performed By: #### 5 7021-8 ####[facility] [id number] [place] [address] [place] MCHC (RBC) [Mass/Vol] 34.9 g/dL Normal 30.5-36.0 [facility] Comment on above: Order Comment: Speci men Type: BLOOD SPECIMENOrdering Facility: [facility] Address: [address] [place] [address] Performed By: #### 5 7021-8 ####[facility] [id number] [place] [address] [place] MCV (RBC) [Entitic vol] 94.4 fL Normal 80.0-100.0 [facility] Comment on above: Order Comment: Speci men Type: BLOOD SPECIMENOrdering Facility: [facility] Address: [address] [place] [address] Performed By: #### 5 7021-8 ####[facility] [id number] [place] [address] [place] Monocytes (Bld) [#/Vol] 0.50 10*3/uL Normal <0.87 [facility] Comment on above: Order Comment: Speci men Type: BLOOD SPECIMENOrdering Facility: [facility] Address: [address] [place] [address] Performed By: #### 5 7021-8 ####[facility] [id number] [place] [address] [place] Monocytes/100 WBC (Bld) 8.0 % Normal [facility] Comment on above: Order Comment: Speci men Type: BLOOD SPECIMENOrdering Facility: [facility] Address: [address] [place] [address] Performed By: #### 5 7021-8 ####[facility] MILLTOWNCLIA [id number] [place] [address] [place] Neutrophils (Bld) [#/Vol] 3.63 10*3/uL Normal 1.45-7.50 [facility] Comment on above: Order Comment: Speci men Type: BLOOD SPECIMENOrdering Facility: [facility] Address: [address] [place] [address] Performed By: #### 5 7021-8 ####[facility] MILLWNCLIA [id number] [place] [address] [place] Neutrophils/100 WBC (Bld) 57.9 % Normal [facility] Comment on above: Order Comment: Speci men Type: BLOOD SPECIMENOrdering Facility: [facility] Address: [address] [place] [address] Performed By: #### 5 7021-8 ####[facility]STITUTEWNCLIA [id number] [place] [address] [place] Nucleated RBC (Bld) [#/Vol] 10*3/uL Normal <0.01 [facility] Comment on above: Order Comment: Speci men Type: BLOOD SPECIMENOrdering Facility: [facility] Address: [address] [place] [address] Performed By: #### 5 7021-8 ####[facility] MILLTOWNCLIA [id number] [place] [address] [place] Nucleated RBC/100 WBC (Bld) [Ratio] 0.0 /100 WBC Normal [facility] Comment on above: Order Comment: Speci men Type: BLOOD SPECIMENOrdering Facility: [facility] Address: [address] [place] [address] Performed By: #### 5 7021-8 ####[facility] [id number] [place] [address] [place] Platelet mean volume (Bld) [Entitic vol] 9.8 fL Normal 9.0-12.7 [facility] Comment on above: Order Comment: Speci men Type: BLOOD SPECIMENOrdering Facility: [facility] Address: [address] [place] [address] Performed By: #### 5 7021-8 ####[facility]PITALALVAA [id number] [place] [address] [place] Platelets (Bld) [#/Vol] 153 10*3/uL Normal 150-400 [facility] Comment on above: Order Comment: Speci men Type: BLOOD SPECIMENOrdering Facility: [facility] Address: [address] [place] [address] Performed By: #### 5 7021-8 ####[facility] [id number] [place] [address] [place] RBC (Bld) [#/Vol] 3.94 10*6/uL Normal 3.90-5.20 [facility] Comment on above: Order Comment: Speci men Type: BLOOD SPECIMENOrdering Facility: [facility] Address: [address] [place] [address] Performed By: #### 5 7021-8 ####[facility]BUSLIA [id number] [place] [address] [place] WBC (Bld) [#/Vol] 6.27 10*3/uL Normal 3.70-11.00 [facility] Comment on above: Order Comment: Speci men Type: BLOOD SPECIMENOrdering Facility: [facility] Address: [address] [place] [address] Performed By: #### 5 7021-8 ####[facility]ITALNCLIA [id number] [place] [address] [place] Vit B12 [facility] 07-16-2 024 Cobalamin (Vitamin B12) [Mass/Vol] 1281 pg/mL High 232-1245 [facility] Comment on above: Order Comment: Speci men Type: BLOOD SPECIMENOrdering Facility: [facility] Address: [address] [place] [address] Performed By: #### 2 132-9 ####[facility] LABCLIA [id number] [facility]ENTERDESK [id number] [place] [address] [place] CBC W Auto Differential pane l (Bld)on 02-16-2024 Basophils (Bld) [#/Vol] 0.08 10*3/uL Normal <0.11 [facility] Comment on above: Order Comment: Speci men Type: BLOOD SPECIMENOrdering Facility: [facility] Address: [address] [place] [address] Performed By: #### 5 7021-8 ####[facility]PITALDEVA [id number] [place] [address] [place] Basophils/100 WBC (Bld) 1.2 % Normal [facility] Comment on above: Order Comment: Speci men Type: BLOOD SPECIMENOrdering Facility: [facility] Address: [address] [place] [address] Performed By: #### 5 7021-8 ####[facility]ITALALVAA [id number] [place] [address] [place] Differential cell count method Nom (Bld) Auto Normal [facility] Comment on above: Order Comment: Speci men Type: BLOOD SPECIMENOrdering Facility: [facility] Address: [address] [place] [address] Performed By: #### 5 7021-8 ####[facility]ITALNCLIA [id number] [place] [address] [place] Eosinophils (Bld) [#/Vol] 0.16 10*3/uL Normal <0.46 [facility] Comment on above: Order Comment: Speci men Type: BLOOD SPECIMENOrdering Facility: [facility] Address: [address] [place] [address] Performed By: #### 5 7021-8 ####[facility]ITALNCSARAH [id number] [place] [address] [place] Eosinophils/100 WBC (Bld) 2.5 % Normal [facility] Comment on above: Order Comment: Speci men Type: BLOOD SPECIMENOrdering Facility: [facility] Address: [address] [place] [address] Performed By: #### 5 7021-8 ####[facility] [id number] [place] [address] [place] Erythrocyte distribution width (RBC) [Ratio] 12.5 % Normal 11.5-15.0 [facility] Comment on above: Order Comment: Speci men Type: BLOOD SPECIMENOrdering Facility: [facility] Address: [address] [place] [address] Performed By: #### 5 7021-8 ####[facility] [id number] [place] [address] [place] Hematocrit (Bld) [Volume fraction] 38.0 % Normal 36.0-46.0 [facility] Comment on above: Order Comment: Speci men Type: BLOOD SPECIMENOrdering Facility: [facility] Address: [address] [place] [address] Performed By: #### 5 7021-8 ####[facility] COLUMBUSLIA [id number] [place] [address] [place] Hemoglobin (Bld) [Mass/Vol] 13.4 g/dL Normal 11.5-15.5 [facility] Comment on above: Order Comment: Speci men Type: BLOOD SPECIMENOrdering Facility: [facility] Address: [address] [place] [address] Performed By: #### 5 7021-8 ####[facility] MILLTOWNCLIA [id number] [place] [address] [place] Immature granulocytes (Bld) [#/Vol] 10*3/uL Normal <0.10 [facility] Comment on above: Order Comment: Speci men Type: BLOOD SPECIMENOrdering Facility: [facility] Address: [address] [place] [address] Performed By: #### 5 7021-8 ####[facility]STITUTEWNCLIA [id number] [place] [address] [place] Immature granulocytes/100 WBC (Bld) 0.2 % Normal [facility] Comment on above: Order Comment: Speci men Type: BLOOD SPECIMENOrdering Facility: [facility] Address: [address] [place] [address] Performed By: #### 5 7021-8 ####[facility] COLUMBUSLIA [id number] [place] [address] [place] Lymphocytes (Bld) [#/Vol] 2.32 10*3/uL Normal 1.00-4.00 [facility] Comment on above: Order Comment: Speci men Type: BLOOD SPECIMENOrdering Facility: [facility] Address: [address] [place] [address] Performed By: #### 5 7021-8 ####[facility] MILLTOWNCLIA [id number] [place] [address] [place] Lymphocytes/100 WBC (Bld) 35.5 % Normal [facility] Comment on above: Order Comment: Speci men Type: BLOOD SPECIMENOrdering Facility: [facility] Address: [address] [place] [address] Performed By: #### 5 7021-8 ####[facility]ITALNCLIA [id number] [place] [address] [place] MCH (RBC) [Entitic mass] 33.3 pg Normal 26.0-34.0 [facility] Comment on above: Order Comment: Speci men Type: BLOOD SPECIMENOrdering Facility: [facility] Address: [address] [place] [address] Performed By: #### 5 7021-8 ####[facility]PITALALCIDES [id number] [place] [address] [place] MCHC (RBC) [Mass/Vol] 35.3 g/dL Normal 30.5-36.0 [facility] Comment on above: Order Comment: Speci men Type: BLOOD SPECIMENOrdering Facility: [facility] Address: [address] [place] [address] Performed By: #### 5 7021-8 ####[facility]PITALNCNIMO [id number] [place] [address] [place] MCV (RBC) [Entitic vol] 94.3 fL Normal 80.0-100.0 [facility] Comment on above: Order Comment: Speci men Type: BLOOD SPECIMENOrdering Facility: [facility] Address: [address] [place] [address] Performed By: #### 5 7021-8 ####[facility]ITALALC[facility] [id number] [place] [address] [place] Monocytes (Bld) [#/Vol] 0.53 10*3/uL Normal <0.87 [facility] Comment on above: Order Comment: Speci men Type: BLOOD SPECIMENOrdering Facility: [facility] Address: [address] [place] [address] Performed By: #### 5 7021-8 ####[facility]ITALNCLIA [id number] [place] [address] [place] Monocytes/100 WBC (Bld) 8.1 % Normal [facility] Comment on above: Order Comment: Speci men Type: BLOOD SPECIMENOrdering Facility: [facility] Address: [address] [place] [address] Performed By: #### 5 7021-8 ####[facility] JOLENECELINADEVLIA [id number] [place] [address] [place] Neutrophils (Bld) [#/Vol] 3.43 10*3/uL Normal 1.45-7.50 [facility] Comment on above: Order Comment: Speci men Type: BLOOD SPECIMENOrdering Facility: [facility] Address: [address] [place] [address] Performed By: #### 5 7021-8 ####[facility]LIA [id number] [place] [address] [place] Neutrophils/100 WBC (Bld) 52.5 % Normal [facility] Comment on above: Order Comment: Speci men Type: BLOOD SPECIMENOrdering Facility: [facility] Address: [address] [place] [address] Performed By: #### 5 7021-8 ####[facility] FLORIDAA [id number] [place] [address] [place] Nucleated RBC (Bld) [#/Vol] 10*3/uL Normal <0.01 [facility] Comment on above: Order Comment: Speci men Type: BLOOD SPECIMENOrdering Facility: [facility] Address: [address] [place] [address] Performed By: #### 5 7021-8 ####[facility] COLUMBUSLIA [id number] [place] [address] [place] Nucleated RBC/100 WBC (Bld) [Ratio] 0.0 /100 WBC Normal [facility] Comment on above: Order Comment: Speci men Type: BLOOD SPECIMENOrdering Facility: [facility] Address: [address] [place] [address] Performed By: #### 5 7021-8 ####[facility] MILLTOWNCLIA [id number] [place] [address] [place] Platelet mean volume (Bld) [Entitic vol] 9.6 fL Normal 9.0-12.7 [facility] Comment on above: Order Comment: Speci men Type: BLOOD SPECIMENOrdering Facility: [facility] Address: [address] [place], [place] [address] Performed By: #### 5 7021-8 ####[facility] INSTITUTEWNCLIA [id number] [place] [address] [place] Platelets (Bld) [#/Vol] 154 10*3/uL Normal 150-400 [facility] Comment on above: Order Comment: Speci men Type: BLOOD SPECIMENOrdering Facility: [facility] Address: [address] [place], [place] [address] Performed By: #### 5 7021-8 ####[facility]ITALNCLIA [id number] [place] [address] [place] RBC (Bld) [#/Vol] 4.03 10*6/uL Normal 3.90-5.20 [facility] Comment on above: Order Comment: Speci men Type: BLOOD SPECIMENOrdering Facility: [facility] Address: [address] [place] [address] Performed By: #### 5 7021-8 ####[facility] INSTITUTEWNCLIA [id number] [place] [address] [place] WBC (Bld) [#/Vol] 6.53 10*3/uL Normal 3.70-11.00 [facility] Comment on above: Order Comment: Speci men Type: BLOOD SPECIMENOrdering Facility: [facility] Address: [address] [place], [place] [address] Performed By: #### 5 7021-8 ####[facility]PITALNCLIA [id number] [place] [address] [place] CBC W Auto Differential pane l (Bld)on 01-26-2024 Basophils (Bld) [#/Vol] 0.08 10*3/uL Normal <0.11 [facility] Comment on above: Order Comment: Speci men Type: BLOOD SPECIMENOrdering Facility: [facility] Address: [address] [place] [address] Performed By: #### 5 7021-8 ####[facility] [id number] [place] [address] [place] Basophils/100 WBC (Bld) 1.3 % Normal [facility] Comment on above: Order Comment: Speci men Type: BLOOD SPECIMENOrdering Facility: [facility] Address: [address] [place] [address] Performed By: #### 5 7021-8 ####[facility] [id number] [place] [address] [place] Differential cell count method Nom (Bld) Auto Normal [facility] Comment on above: Order Comment: Speci men Type: BLOOD SPECIMENOrdering Facility: [facility] Address: [address] [place] [address] Performed By: #### 5 7021-8 ####[facility] [id number] [place] [address] [place] Eosinophils (Bld) [#/Vol] 0.15 10*3/uL Normal <0.46 [facility] Comment on above: Order Comment: Speci men Type: BLOOD SPECIMENOrdering Facility: [facility] Address: [address] [place] [address] Performed By: #### 5 7021-8 ####[facility] [id number] [place] [address] [place] Eosinophils/100 WBC (Bld) 2.4 % Normal [facility] Comment on above: Order Comment: Speci men Type: BLOOD SPECIMENOrdering Facility: [facility] Address: [address] [place] [address] Performed By: #### 5 7021-8 ####[facility]ITALN[facility]ED[facility] [id number] [place] [address] [place] Erythrocyte distribution width (RBC) [Ratio] 12.5 % Normal 11.5-15.0 [facility] Comment on above: Order Comment: Speci men Type: BLOOD SPECIMENOrdering Facility: [facility] Address: [address] [place] [address] Performed By: #### 5 7021-8 ####[facility] [id number] [place] [address] [place] Hematocrit (Bld) [Volume fraction] 39.9 % Normal 36.0-46.0 [facility] Comment on above: Order Comment: Speci men Type: BLOOD SPECIMENOrdering Facility: [facility] Address: [address] [place] [address] Performed By: #### 5 7021-8 ####[facility] [id number] [place] [address] [place] Hemoglobin (Bld) [Mass/Vol] 13.8 g/dL Normal 11.5-15.5 [facility] Comment on above: Order Comment: Speci men Type: BLOOD SPECIMENOrdering Facility: [facility] Address: [address] [place] [address] Performed By: #### 5 7021-8 ####[facility] [id number] [place] [address] [place] Immature granulocytes (Bld) [#/Vol] 10*3/uL Normal <0.10 [facility] Comment on above: Order Comment: Speci men Type: BLOOD SPECIMENOrdering Facility: [facility] Address: [address] [place] [address] Performed By: #### 5 7021-8 ####[facility] MILLWENCESLAOWNCLIA [id number] [place] [address] [place] Immature granulocytes/100 WBC (Bld) 0.2 % Normal [facility] Comment on above: Order Comment: Speci men Type: BLOOD SPECIMENOrdering Facility: [facility] Address: [address] [place] [address] Performed By: #### 5 7021-8 ####[facility] INSTITUTEWNCLIA [id number] [place] [address] [place] Lymphocytes (Bld) [#/Vol] 1.98 10*3/uL Normal 1.00-4.00 [facility] Comment on above: Order Comment: Speci men Type: BLOOD SPECIMENOrdering Facility: [facility] Address: [address] [place] [address] Performed By: #### 5 7021-8 ####[facility]PITALNCLIA [id number] [place] [address] [place] Lymphocytes/100 WBC (Bld) 32.1 % Normal [facility] Comment on above: Order Comment: Speci men Type: BLOOD SPECIMENOrdering Facility: [facility] Address: [address] [place] [address] Performed By: #### 5 7021-8 ####[facility] INSTITUTEWNCLIA [id number] [place] [address] [place] MCH (RBC) [Entitic mass] 32.7 pg Normal 26.0-34.0 [facility] Comment on above: Order Comment: Speci men Type: BLOOD SPECIMENOrdering Facility: [facility] Address: [address] [place] [address] Performed By: #### 5 7021-8 ####[facility]PITALNCLIA [id number] [place] [address] [place] MCHC (RBC) [Mass/Vol] 34.6 g/dL Normal 30.5-36.0 [facility] Comment on above: Order Comment: Speci men Type: BLOOD SPECIMENOrdering Facility: [facility] Address: [address] [place] [address] Performed By: #### 5 7021-8 ####[facility] [id number] [place] [address] [place] MCV (RBC) [Entitic vol] 94.5 fL Normal 80.0-100.0 [facility] Comment on above: Order Comment: Speci men Type: BLOOD SPECIMENOrdering Facility: [facility] Address: [address] [place] [address] Performed By: #### 5 7021-8 ####[facility] [id number] [place] [address] [place] Monocytes (Bld) [#/Vol] 0.53 10*3/uL Normal <0.87 [facility] Comment on above: Order Comment: Speci men Type: BLOOD SPECIMENOrdering Facility: [facility] Address: [address] [place] [address] Performed By: #### 5 7021-8 ####[facility] [id number] [place] [address] [place] Monocytes/100 WBC (Bld) 8.6 % Normal [facility] Comment on above: Order Comment: Speci men Type: BLOOD SPECIMENOrdering Facility: [facility] Address: [address] [place] [address] Performed By: #### 5 7021-8 ####[facility] HOSPITALNCLI [id number] [place] [address] [place] Neutrophils (Bld) [#/Vol] 3.41 10*3/uL Normal 1.45-7.50 [facility] Comment on above: Order Comment: Speci men Type: BLOOD SPECIMENOrdering Facility: [facility] Address: [address] [place] [address] Performed By: #### 5 7021-8 ####[facility]ITALNCCED[facility] [id number] [place] [address] [place] Neutrophils/100 WBC (Bld) 55.4 % Normal [facility] Comment on above: Order Comment: Speci men Type: BLOOD SPECIMENOrdering Facility: [facility] Address: [address] [place] [address] Performed By: #### 5 7021-8 ####[facility]ITALNCCED[facility] [id number] [place] [address] [place] Nucleated RBC (Bld) [#/Vol] 10*3/uL Normal <0.01 [facility] Comment on above: Order Comment: Speci men Type: BLOOD SPECIMENOrdering Facility: [facility] Address: [address] [place] [address] Performed By: #### 5 7021-8 ####[facility] [id number] [place] [address] [place] Nucleated RBC/100 WBC (Bld) [Ratio] 0.0 /100 WBC Normal [facility] Comment on above: Order Comment: Speci men Type: BLOOD SPECIMENOrdering Facility: [facility] Address: [address] [place] [address] Performed By: #### 5 7021-8 ####[facility]ITALN[facility] [id number] [place] [address] [place] Platelet mean volume (Bld) [Entitic vol] 10.2 fL Normal 9.0-12.7 [facility] Comment on above: Order Comment: Speci men Type: BLOOD SPECIMENOrdering Facility: [facility] Address: [address] [place] [address] Performed By: #### 5 7021-8 ####[facility] JOLENEFlakoNCLIA [id number] [place] [address] [place] Platelets (Bld) [#/Vol] 164 10*3/uL Normal 150-400 [facility] Comment on above: Order Comment: Speci men Type: BLOOD SPECIMENOrdering Facility: [facility] Address: [address] [place] [address] Performed By: #### 5 7021-8 ####[facility]ITALNCLIA [id number] [place] [address] [place] RBC (Bld) [#/Vol] 4.22 10*6/uL Normal 3.90-5.20 [facility] Comment on above: Order Comment: Speci men Type: BLOOD SPECIMENOrdering Facility: [facility] Address: [address] [place] [address] Performed By: #### 5 7021-8 ####[facility] HOSPITALNCA [id number] [place] [address] [place] WBC (Bld) [#/Vol] 6.16 10*3/uL Normal 3.70-11.00 [facility] Comment on above: Order Comment: Speci men Type: BLOOD SPECIMENOrdering Facility: [facility] Address: [address] [place] [address] Performed By: #### 5 7021-8 ####[facility]ITALNCLIA [id number] [place] [address] [place] CBC W Auto Differential pane l (Bld)on 01-12-2024 Basophils (Bld) [#/Vol] 0.06 10*3/uL Normal <0.11 [facility] Comment on above: Order Comment: Speci men Type: BLOOD SPECIMENOrdering Facility: [facility] Address: [address] [place] [address] Performed By: #### 5 7021-8 ####[facility] MILLWNCLIA [id number] [place] [address] [place] Basophils/100 WBC (Bld) 1.0 % Normal [facility] Comment on above: Order Comment: Speci men Type: BLOOD SPECIMENOrdering Facility: [facility] Address: [address] [place] [address] Performed By: #### 5 7021-8 ####[facility] COLUMBUSLIA [id number] [place] [address] [place] Differential cell count method Nom (Bld) Auto Normal [facility] Comment on above: Order Comment: Speci men Type: BLOOD SPECIMENOrdering Facility: [facility] Address: [address] [place] [address] Performed By: #### 5 7021-8 ####[facility] HOSPITALDEVLIA [id number] [place] [address] [place] Eosinophils (Bld) [#/Vol] 0.15 10*3/uL Normal <0.46 [facility] Comment on above: Order Comment: Speci men Type: BLOOD SPECIMENOrdering Facility: [facility] Address: [address] [place] [address] Performed By: #### 5 7021-8 ####[facility] INSTITUTEWNCLIA [id number] [place] [address] [place] Eosinophils/100 WBC (Bld) 2.5 % Normal [facility] Comment on above: Order Comment: Speci men Type: BLOOD SPECIMENOrdering Facility: [facility] Address: [address] [place] [address] Performed By: #### 5 7021-8 ####[facility]PITALNCLIA [id number] [place] [address] [place] Erythrocyte distribution width (RBC) [Ratio] 12.8 % Normal 11.5-15.0 [facility] Comment on above: Order Comment: Speci men Type: BLOOD SPECIMENOrdering Facility: [facility] Address: [address] [place] [address] Performed By: #### 5 7021-8 ####[facility]ITALNCC[facility] [id number] [place] [address] [place] Hematocrit (Bld) [Volume fraction] 37.7 % Normal 36.0-46.0 [facility] Comment on above: Order Comment: Speci men Type: BLOOD SPECIMENOrdering Facility: [facility] Address: [address] [place] [address] Performed By: #### 5 7021-8 ####[facility]ITALN[facility] [id number] [place] [address] [place] Hemoglobin (Bld) [Mass/Vol] 13.2 g/dL Normal 11.5-15.5 [facility] Comment on above: Order Comment: Speci men Type: BLOOD SPECIMENOrdering Facility: [facility] Address: [address] [place] [address] Performed By: #### 5 7021-8 ####[facility] HOSPITALNCLI [id number] [place] [address] [place] Immature granulocytes (Bld) [#/Vol] 10*3/uL Normal <0.10 [facility] Comment on above: Order Comment: Speci men Type: BLOOD SPECIMENOrdering Facility: [facility] Address: [address] [place] [address] Performed By: #### 5 7021-8 ####[facility] COLUMBUSLI [id number] [place] [address] [place] Immature granulocytes/100 WBC (Bld) 0.2 % Normal [facility] Comment on above: Order Comment: Speci men Type: BLOOD SPECIMENOrdering Facility: [facility] Address: [address] [place] [address] Performed By: #### 5 7021-8 ####[facility] JOLENECELINADEVA [id number] [place] [address] [place] Lymphocytes (Bld) [#/Vol] 2.01 10*3/uL Normal 1.00-4.00 [facility] Comment on above: Order Comment: Speci men Type: BLOOD SPECIMENOrdering Facility: [facility] Address: [address] [place] [address] Performed By: #### 5 7021-8 ####[facility]AA [id number] [place] [address] [place] Lymphocytes/100 WBC (Bld) 33.8 % Normal [facility] Comment on above: Order Comment: Speci men Type: BLOOD SPECIMENOrdering Facility: [facility] Address: [address] [place] [address] Performed By: #### 5 7021-8 ####[facility]AA [id number] [place] [address] [place] MCH (RBC) [Entitic mass] 33.4 pg Normal 26.0-34.0 [facility] Comment on above: Order Comment: Speci men Type: BLOOD SPECIMENOrdering Facility: [facility] Address: [address] [place] [address] Performed By: #### 5 7021-8 ####[facility] COLUMBUSLIA [id number] [place] [address] [place] MCHC (RBC) [Mass/Vol] 35.0 g/dL Normal 30.5-36.0 [facility] Comment on above: Order Comment: Speci men Type: BLOOD SPECIMENOrdering Facility: [facility] Address: [address] [place] [address] Performed By: #### 5 7021-8 ####[facility] MILLWNCLIA [id number] [place] [address] [place] MCV (RBC) [Entitic vol] 95.4 fL Normal 80.0-100.0 [facility] Comment on above: Order Comment: Speci men Type: BLOOD SPECIMENOrdering Facility: [facility] Address: [address] [place] [address] Performed By: #### 5 7021-8 ####[facility]ITALNCLIA [id number] [place] [address] [place] Monocytes (Bld) [#/Vol] 0.57 10*3/uL Normal <0.87 [facility] Comment on above: Order Comment: Speci men Type: BLOOD SPECIMENOrdering Facility: [facility] Address: [address] [place] [address] Performed By: #### 5 7021-8 ####[facility] [id number] [place] [address] [place] Monocytes/100 WBC (Bld) 9.6 % Normal [facility] Comment on above: Order Comment: Speci men Type: BLOOD SPECIMENOrdering Facility: [facility] Address: [address] [place] [address] Performed By: #### 5 7021-8 ####[facility] COLUMBUSLIA [id number] [place] [address] [place] Neutrophils (Bld) [#/Vol] 3.15 10*3/uL Normal 1.45-7.50 [facility] Comment on above: Order Comment: Speci men Type: BLOOD SPECIMENOrdering Facility: [facility] Address: [address] [place] [address] Performed By: #### 5 7021-8 ####[facility]ITALNCLIA [id number] [place] [address] [place] Neutrophils/100 WBC (Bld) 52.9 % Normal [facility] Comment on above: Order Comment: Speci men Type: BLOOD SPECIMENOrdering Facility: [facility] Address: [address] [place] [address] Performed By: #### 5 7021-8 ####[facility] [id number] [place] [address] [place] Nucleated RBC (Bld) [#/Vol] 10*3/uL Normal <0.01 [facility] Comment on above: Order Comment: Speci men Type: BLOOD SPECIMENOrdering Facility: [facility] Address: [address] [place] [address] Performed By: #### 5 7021-8 ####[facility] [id number] [place] [address] [place] Nucleated RBC/100 WBC (Bld) [Ratio] 0.0 /100 WBC Normal [facility] Comment on above: Order Comment: Speci men Type: BLOOD SPECIMENOrdering Facility: [facility] Address: [address] [place] [address] Performed By: #### 5 7021-8 ####[facility] [id number] [place] [address] [place] Platelet mean volume (Bld) [Entitic vol] 9.6 fL Normal 9.0-12.7 [facility] Comment on above: Order Comment: Speci men Type: BLOOD SPECIMENOrdering Facility: [facility] Address: [address] [place] [address] Performed By: #### 5 7021-8 ####[facility] [id number] [place] [address] [place] Platelets (Bld) [#/Vol] 144 10*3/uL Low 150-400 [facility] Comment on above: Order Comment: Speci men Type: BLOOD SPECIMENOrdering Facility: [facility] Address: [address] [place], [place] [address] Performed By: #### 5 7021-8 ####[facility] DEBORAHALVAA [id number] [place] [address] [place] RBC (Bld) [#/Vol] 3.95 10*6/uL Normal 3.90-5.20 [facility] Comment on above: Order Comment: Speci men Type: BLOOD SPECIMENOrdering Facility: [facility] Address: [address] [place], [place] [address] Performed By: #### 5 7021-8 ####[facility] JOLENECELINANCLIA [id number] [place] [address] [place] WBC (Bld) [#/Vol] 5.95 10*3/uL Normal 3.70-11.00 [facility] Comment on above: Order Comment: Speci men Type: BLOOD SPECIMENOrdering Facility: [facility] Address: [address] [place], [place] [address] Performed By: #### 5 7021-8 ####[facility] JOLENECELINAALVAA [id number] [place] [address] [place] XR Pelvis and Hip - left AP and Lateral frogon 12-23-2023 IMPRESSION: Negative. Steel Plate Caulker: KING Transcribe Date/Time: Dec 23 2023 4:03P Dictated by : RODGER ELLIOTT MD This examination was interpreted and the report reviewed and electronically signed by: RODGER ELLIOTT MD on Dec 23 2023 4:04PM [facility] DIVISION OF RADIOLOGY * * *Final Report* * * DATE OF EXAM: Dec 17 2023 11:27AM WOX [id number] - XR HIP 3V PELV+ AP/LAT LT / PROCEDURE REASON: Left hip pain * * * * Physician Interpretation * * * * PROCEDURE: Pelvis and left hip INDICATION: Left hip pain .pain when touching pelvis in asis area, does have pain with standing or sitting. No inj TECHNIQUE: XR HIP 3V PELV+ AP/LAT LT COMPARISON: None FINDINGS: No fractures or dislocations are seen. The hip and sacroiliac joints are maintained. No soft tissue abnormality is evident. DIVISION OF RADIOLOGY Provider, Sharon Carlisle - 12/23/2023 * * *Final Report* * * DATE OF EXAM: Dec 17 2023 11:27AM WOX [id number] - XR HIP 3V PELV+ AP/LAT LT / PROCEDURE REASON: Left hip pain * * * * Physician Interpretation * * * * PROCEDURE: Pelvis and left hip INDICATION: Left hip pain .pain when touching pelvis in asis area, does have pain with standing or sitting. No inj TECHNIQUE: XR HIP 3V PELV+ AP/LAT LT COMPARISON: None FINDINGS: No fractures or dislocations are seen. The hip and sacroiliac joints are maintained. No soft tissue abnormality is evident. IMPRESSION IMPRESSION: Negative. Steel Plate Caulker: PSCB Transcribe Date/Time: Dec 23 2023 4:03P Dictated by : RODGER ELLIOTT MD This examination was interpreted and the report reviewed and electronically signed by: RODGER ELLIOTT MD on Dec 23 2023 4:04PM EST [facility] XR Pelvis and Hip - left AP and Lateral frogOrdered By: Ccf Provider on 12-23-2023 [facility] XR Pelvis and Hip - left AP and Lateral frogon 12-17-2023 Radiology Study observation (narrative) [facility] Absolute lymphocyte countOrd ered By: Arleen Rodríguez on 04-01-2023 Lymphocytes Auto (Unsp spec) [#/Vol] 10.12 10*3/uL 0.83-4.51 [facility] Basophil percentageOrdered B y: Arleen Rodríguez on 04-01-2023 Basophil percentage Not Reportable [facility] Chloride [Moles/Vol] 104 mmol/L 98-107 [facility] Glucose [Mass/Vol] 133 mg/dL 74-106 [facility] Comment on above: Fasting Glucose resu lt greater than or equal to 126 mg/dL suggests DIABETES MELLITUS per A.D.A. criteria. Neutrophils (Bld) [#/Vol] 182.1 10*3/uL 2.0-7.7 [facility] Potassium [Moles/Vol] 3.8 mmol/L 3.5-5.1 [facility] Sodium [Moles/Vol] 137 mmol/L 136-145 [facility] WBC (Bld) [#/Vol] 337.3 10*3/uL 4.4-11.0 [facility] Comment on above: CRITICAL VALUE VERIF IED. [facility]14 Aparna Khalil.RESULTS READ BACK BY SAME . Blood band neutrophil count as percentage of total leukocytesOrdered By: Arleen Rodríguez on 04-01-2023 Band form neutrophils/100 WBC (Bld) 23 % 0-5 [facility] [place] Blood erythrocytes count (nu mber/volume)Ordered By: Arleen Rodríguez on 04-01-2023 RBC (Bld) [#/Vol] 3.21 10*6/uL 4.2-5.4 [facility] Blood hemoglobin measurement (mass/volume)Ordered By: Arleen Rodríguez on 04-01-2023 Hemoglobin (Bld) [Mass/Vol] 10.4 g/dL 12.0-15.0 [facility] [place] Blood lymphocytes/100 leukoc ytesOrdered By: Arleen Rodríguez on 04-01-2023 Lymphocytes/100 WBC (Bld) 3 % 19-41 [facility] [place] Blood metamyelocytes/100 charlie kocytesOrdered By: Arleen Rodríguez on 04-01-2023 Metamyelocytes/100 WBC (Bld) 7 % 0-1 [facility] [place] Blood monocytes/100 leukocyt esOrdered By: Arleen Rodríguez on 04-01-2023 Monocytes/100 WBC (Bld) 4 % 0-10 [facility] [place] Blood platelet mean volumeOr dered By: Arleen Rodríguez on 04-01-2023 Platelet mean volume (Bld) [Entitic vol] 11.5 fL 6.2-12.0 [facility] [place] Blood promyelocytes/100 leuk ocytesOrdered By: Arleen Rodríguez on 04-01-2023 Promyelocytes/100 WBC (Bld) 29 % 0-0 [facility] [place] Blood segmented neutrophils/ 100 leukocytesOrdered By: Arleen Rodríguez on 04-01-2023 Segmented neutrophils/100 WBC (Bld) 31 % 47-70 [facility] [place] Determination of erythrocyte mean corpuscular volume (MCV)Ordered By: Arleen Rodríguez on 04-01-2023 MCV (RBC) [Entitic vol] 95.0 fL 81-99 [facility] [place] Hematocrit Auto (Bld) [Volum e fraction]Ordered By: Arleen Rodríguez on 04-01-2023 Hematocrit (Bld) [Volume fraction] 30.5 % 37-47 [facility] [place] Laboratory - Chemistry and C hemistry - challengeOrdered By: Arleen Rodríguez on 04-01-2023 CO2 [Moles/Vol] 27.0 mmol/L 21.0-32.0 [facility] [place] Urea nitrogen/Creatinine [Mass ratio] 14.2 mg/mg 10-20 [facility] [place] Laboratory - Hematology and Cell countsOrdered By: Arleen Rodríguez on 04-01-2023 Erythrocyte distribution width (RBC) [Entitic vol] 62.5 fL 35.1-43.9 [facility] [place] Erythrocyte distribution width (RBC) [Ratio] 18.3 % 11.6-14.6 [facility] [place] MCH (RBC) [Entitic mass] 32.4 pg 27.0-32.0 [facility] [place] Myelocytes/100 WBC (Bld) 3 % 0-0 [facility] [place] MCHC Auto (RBC) [Mass/Vol]Or dered By: Arleen Rodríguez on 04-01-2023 MCHC (RBC) [Mass/Vol] 34.1 g/dL 32-36 [facility] No Panel InformationOrdered By: Arleen Rodríguez on 04-01-2023 D-Dimer Quantitative (PE/DVT) 0.56 FEU/ug/m 0.27-0.49 [facility] [place] Comment on above: D-Dimer ELEVATED (>0 .49): Additional studies and clinicalassessments are indicated to conclude diagnosis of:Deep Vein Thrombosis (DVT) or Pulmonary Embolism (PE)CRITICAL VALUE VERIFIED. CALLED TO [facility]04/01/23 [id number] Aparna Khalil.RESULTS READ BACK BY SAME . Estimated Creatinine Clearance Calc 53.00 ml/min [facility] [place] Estimated GFR (MDRD) Amer 65 mL/min >60 [facility] Comment on above: GFR Calc Estimated GFR (MDRD) Non-Af Amer 54 mL/min >60 [facility] [place] Comment on above: Non- GFR Calc Troponin I High Sensitivity 7 pg/mL 3.0-54.0 [facility] [place] Comment on above: Please Note: New Petra t Units and Gender Specific Reference Ranges. For more information see Policy Stat Procedure Blue High Sensitivity Troponin (TNIH) and attachments. Platelets bldOrdered By: Heather Rodríguez on 04-01-2023 Platelets (Bld) [#/Vol] 130 10*3/uL 150-450 [facility] [place] Review by pathologistOrdered By: Arleen Rodríguez on 04-01-2023 Pathologist review [place] (Unsp spec) [Interp] December [facility] [place] Serum or plasma calcium aleyda urement (mass/volume)Ordered By: Arleen Rodríguez on 04-01-2023 Calcium [Mass/Vol] 9.2 mg/dL 8.5-10.1 [facility] Serum or plasma creatinine m easurement (mass/volume)Ordered By: Arleen Rodríguez on 04-01-2023 Creatinine [Mass/Vol] 1.13 mg/dL 0.55-1.02 [facility] Comment on above: The validity of the calculated GFR & GFRAA in patients over 70 years has not been determined. Clinical correlation is essential. Serum or plasma urea nitroge n measurement (mass/volume)Ordered By: Arleen Rodríguez on 04-01-2023 Urea nitrogen [Mass/Vol] 16 mg/dL 7-18 [facility] [place] Thin prep Papanicolaou smear with manual screeningOrdered By: Arleen Rodríguez on 04-01-2023 Thin prep Papanicolaou smear with manual screening 6 5-15 [facility] [place] Total cell countOrdered By: Arleen Rodríguez on 04-01-2023 Cells counted Molgen (Bld/Tiss) [#] 100 MANUAL DIFF [facility] [place] Surgical Specimenon 11-26-19 Surgical Specimen [place] [id number] FINAL SURGICAL PATHOLOGY REPORT NAME: ROSALINDA RUSSO Date of 11/25/2022 Collection: Medical Record [id number] Date of 11/26/2022 Number: Receipt: Age: 52 Y Sex: F Date 11/28/2022 12:18 Reported: Date Of : 1970 Financial [id number] Admitting RAHUL RAMAN Number: Physician: [facility] Location: Physician: Accession Number: [id number] Diagnosis: Endometrium, biopsy: Disordered proliferative endometrium. JOHN PAUL MARIE M.D. (Electronic Signature) Specimen Submitted: ENDOMETRIAL BIOPSY, POLYP, CURETTINGS Preoperative Dx: DUB Microscopic Evaluation: Was performed. Gross Description: Submitted in one part in formalin labeled Rosalinda Russo, EMB are multiple pink-trent soft fragments of tissue which measures 2.5 x 2.0 x 3 cm in aggregate dimension. Entirely submitted. Block label A1. [facility] CODES: 19447; Department of Pathology Page 1 of 1 Normal [facility] BONE MARROW BIOPSY [facility] Vital Signs Date Time Vital Sign Value Performing Clinician Facility 12-12-2024 08:25-0400 Body mass index (BMI) [Ratio] 29.75 kg/m2 Prince Uribe MD Work Phone: [facility] 12-12-2024 08:25-0400 Body temperature 98.8 [degF] Prince Uribe MD Work Phone: [facility] 12-12-2024 08:25-0400 Body weight 77.11 kg Prince Uribe MD Work Phone: [facility] 12-12-2024 08:25-0400 Diastolic blood pressure 67 mm[Hg] Prince Uribe MD Work Phone: [facility] 12-12-2024 08:25-0400 Heart rate 77 /min Prince Uribe MD Work Phone: [facility] 12-12-2024 08:25-0400 SaO2% (BldA) [Mass fraction] 99 % Prince Uribe MD Work Phone: [facility] 12-12-2024 08:25-0400 Systolic blood pressure 103 mm[Hg] Prince Uribe MD Work Phone: [facility] 09-29-2024 10:02-0500 Body mass index (BMI) [Ratio] 29.57 kg/m2 Marga Crowe MD Work Phone: [facility] 09-29-2024 10:02-0500 Body weight 76.66 kg Marga Crowe MD Work Phone: [facility] 09-29-2024 10:02-0500 Diastolic blood pressure 82 mm[Hg] Marga Crowe MD Work Phone: [facility] 09-29-2024 10:02-0500 Systolic blood pressure 112 mm[Hg] Marga Crowe MD Work Phone: [facility] 09-23-2024 09:17-0500 Body mass index (BMI) [Ratio] 29.19 kg/m2 Eden Petersen MD Work Phone: [facility] 09-23-2024 09:17-0500 Body weight 75.66 kg Eden Petersen MD Work Phone: [facility] 09-23-2024 09:17-0500 Diastolic blood pressure 71 mm[Hg] Eden Petersen MD Work Phone: [facility] 09-23-2024 09:17-0500 Heart rate 85 /min Eden Petersen MD Work Phone: [facility] 09-23-2024 09:17-0500 Respiratory rate 16 /min Eden Petersen MD Work Phone: [facility] 09-23-2024 09:17-0500 SaO2% (BldA) [Mass fraction] 99 % Eden Petersen MD Work Phone: [facility] 09-23-2024 09:17-0500 Systolic blood pressure 109 mm[Hg] Eden Petersen MD Work Phone: [facility] 09-05-2024 14:48-0500 Body mass index (BMI) [Ratio] 29.12 kg/m2 Marga Crowe MD Work Phone: [facility] 09-05-2024 14:48-0500 Body weight 75.48 kg Marga Crowe MD Work Phone: [facility] 09-05-2024 14:48-0500 Diastolic blood pressure 72 mm[Hg] Marga Crowe MD Work Phone: [facility] 09-05-2024 14:48-0500 Systolic blood pressure 126 mm[Hg] Marga Crowe MD Work Phone: [facility] 06-21-2024 09:28-0500 Body mass index (BMI) [Ratio] 28.52 kg/m2 Eden Petersen MD Work Phone: [facility] 06-21-2024 09:28-0500 Body weight 73.94 kg Eden Petersen MD Work Phone: [facility] 06-21-2024 09:28-0500 Diastolic blood pressure 80 mm[Hg] Eden Petersen MD Work Phone: [facility] 06-21-2024 09:28-0500 Heart rate 63 /min Eden Petersen MD Work Phone: [facility] 06-21-2024 09:28-0500 Respiratory rate 16 /min Eden Petersen MD Work Phone: [facility] 06-21-2024 09:28-0500 Systolic blood pressure 108 mm[Hg] Eden Petersen MD Work Phone: [facility] 06-17-2024 11:31-0500 Body height 165.1 cm Rahul Raman MD Work Phone: [facility] 06-17-2024 11:31-0500 Body mass index (BMI) [Ratio] 26.79 kg/m2 Rahul Raman MD Work Phone: [facility] 06-17-2024 11:31-0500 Body weight 73.03 kg Rahul Raman MD Work Phone: [facility] 06-09-2024 09:52-0400 Body mass index (BMI) [Ratio] 28.44 kg/m2 Prince Uribe MD Work Phone: [facility] 06-09-2024 09:52-0400 Body temperature 99 [degF] Prince Uribe MD Work Phone: [facility] 06-09-2024 09:52-0400 Body weight 73.71 kg Prince Uribe MD Work Phone: [facility] 06-09-2024 09:52-0400 Diastolic blood pressure 72 mm[Hg] Prince Uribe MD Work Phone: [facility] 06-09-2024 09:52-0400 Heart rate 62 /min Prince Uribe MD Work Phone: [facility] 06-09-2024 09:52-0400 SaO2% (BldA) [Mass fraction] 98 % Prince Uribe MD Work Phone: [facility] 06-09-2024 09:52-0400 Systolic blood pressure 110 mm[Hg] Prince Uribe MD Work Phone: [facility] 04-20-2024 11:26-0400 Body mass index (BMI) [Ratio] 28.09 kg/m2 Judith Older [employer] Work Phone: [facility] 04-20-2024 11:26-0400 Body weight 72.8 kg Judith Older [employer] Work Phone: [facility] 04-20-2024 11:26-0400 Diastolic blood pressure 72 mm[Hg] Judith Older [employer] Work Phone: [facility] 04-20-2024 11:26-0400 Heart rate 84 /min Judith Older [employer] Work Phone: [facility] 04-20-2024 11:26-0400 Respiratory rate 16 /min Judith Older [employer] Work Phone: [facility] 04-20-2024 11:26-0400 SaO2% (BldA) [Mass fraction] 98 % Judith Older [employer] Work Phone: [facility] 04-20-2024 11:26-0400 Systolic blood pressure 118 mm[Hg] Judith Older [employer] Work Phone: [facility] 03-01-2024 10:07-0400 Body mass index (BMI) [Ratio] 28.26 kg/m2 Prince Uribe MD Work Phone: [facility] 03-01-2024 10:07-0400 Body temperature 98.71 [degF] Prince Uribe MD Work Phone: [facility] 03-01-2024 10:07-0400 Body weight 73.26 kg Prince Uribe MD Work Phone: [facility] 03-01-2024 10:07-0400 Diastolic blood pressure 73 mm[Hg] Prince Uribe MD Work Phone: [facility] 03-01-2024 10:07-0400 Heart rate 79 /min Prince Uribe MD Work Phone: [facility] 03-01-2024 10:07-0400 SaO2% (BldA) [Mass fraction] 97 % Prince Uribe MD Work Phone: [facility] 03-01-2024 10:07-0400 Systolic blood pressure 120 mm[Hg] Prince Uribe MD Work Phone: [facility] 12-23-2023 10:56-0400 Body mass index (BMI) [Ratio] 28.26 kg/m2 Marc Masci DO Work Phone: [facility] 12-23-2023 10:56-0400 Body temperature 98.1 [degF] Marc Frosti DO Work Phone: [facility] 12-23-2023 10:56-0400 Body weight 73.26 kg Marc Masci DO Work Phone: [facility] 12-23-2023 10:56-0400 Diastolic blood pressure 74 mm[Hg] Marc Forsti DO Work Phone: [facility] 12-23-2023 10:56-0400 Heart rate 74 /min Marc Frosti DO Work Phone: [facility] 12-23-2023 10:56-0400 SaO2% (BldA) [Mass fraction] 99 % Marc Frosti DO Work Phone: [facility] 12-23-2023 10:56-0400 Systolic blood pressure 114 mm[Hg] Marc Frosti DO Work Phone: [facility] 12-17-2023 10:23-0400 Body mass index (BMI) [Ratio] 28.35 kg/m2 Judith Older [employer] Work Phone: [facility] 12-17-2023 10:23-0400 Body weight 73.48 kg Judith Older [employer] Work Phone: [facility] 12-17-2023 10:23-0400 Diastolic blood pressure 70 mm[Hg] Judith Older [employer] Work Phone: [facility] 12-17-2023 10:23-0400 Heart rate 65 /min Judith Older [employer] Work Phone: [facility] 12-17-2023 10:23-0400 Respiratory rate 16 /min Judith Older [employer] Work Phone: [facility] 12-17-2023 10:23-0400 SaO2% (BldA) [Mass fraction] 100 % Judith Older [employer] Work Phone: [facility] 12-17-2023 10:23-0400 Systolic blood pressure 103 mm[Hg] Judith Older [employer] Work Phone: [facility] 10-27-2023 08:37-0400 Body temperature 98.71 [degF] Prince Uribe MD Work Phone: [facility] 10-27-2023 08:37-0400 Body weight 73.03 kg Prince Uribe MD Work Phone: [facility] 10-27-2023 08:37-0400 Diastolic blood pressure 77 mm[Hg] Prince Uribe MD Work Phone: [facility] 10-27-2023 08:37-0400 Heart rate 71 /min Prince Uribe MD Work Phone: [facility] 10-27-2023 08:37-0400 SaO2% (BldA) [Mass fraction] 100 % Prince Uribe MD Work Phone: [facility] 10-27-2023 08:37-0400 Systolic blood pressure 115 mm[Hg] Prince Uirbe MD Work Phone: [facility] 09-18-2023 09:44-0500 Body weight 71.22 kg Judith Older [employer] Work Phone: [facility] 09-18-2023 09:44-0500 Diastolic blood pressure 78 mm[Hg] Judith Older [employer] Work Phone: [facility] 09-18-2023 09:44-0500 Heart rate 64 /min Judith Older [employer] Work Phone: [facility] 09-18-2023 09:44-0500 Respiratory rate 16 /min Judith Older [employer] Work Phone: [facility] 09-18-2023 09:44-0500 SaO2% (BldA) [Mass fraction] 98 % Judith Older [employer] Work Phone: [facility] 09-18-2023 09:44-0500 Systolic blood pressure 112 mm[Hg] Judith Older [employer] Work Phone: [facility] 06-02-2023 10:40-0400 Body temperature 98.49 [degF] Prince Uribe MD Work Phone: [facility] 06-02-2023 10:40-0400 Body weight 65.32 kg Prince Uribe MD Work Phone: [facility] 06-02-2023 10:40-0400 Diastolic blood pressure 65 mm[Hg] Prince Uribe MD Work Phone: [facility] 06-02-2023 10:40-0400 Heart rate 64 /min Prince Uribe MD Work Phone: [facility] 06-02-2023 10:40-0400 SaO2% (BldA) [Mass fraction] 100 % Prince Uribe MD Work Phone: [facility] 06-02-2023 10:40-0400 Systolic blood pressure 104 mm[Hg] Prince Uribe MD Work Phone: [facility] 05-12-2023 08:48-0400 Body temperature 98.01 [degF] Yee Lind [employer] Work Phone: [facility] 05-12-2023 08:48-0400 Body weight 64.64 kg Somers Lind [employer] Work Phone: [facility] 05-12-2023 08:48-0400 Diastolic blood pressure 72 mm[Hg] Yee Lind [employer] Work Phone: [facility] 05-12-2023 08:48-0400 Heart rate 70 /min Yee Lind [employer] Work Phone: [facility] 05-12-2023 08:48-0400 SaO2% (BldA) [Mass fraction] 100 % Somers Lind [employer] Work Phone: [facility] 05-12-2023 08:48-0400 Systolic blood pressure 106 mm[Hg] Yee Lind [employer] Work Phone: [facility] 04-30-2023 09:43-0400 Body weight 63.5 kg Judith Older [employer] Work Phone: [facility] 04-30-2023 09:43-0400 Diastolic blood pressure 70 mm[Hg] Judith Older [employer] Work Phone: [facility] 04-30-2023 09:43-0400 Heart rate 93 /min Judith Older [employer] Work Phone: [facility] 04-30-2023 09:43-0400 Respiratory rate 16 /min Judith Older [employer] Work Phone: [facility] 04-30-2023 09:43-0400 SaO2% (BldA) [Mass fraction] 99 % Judith Older [employer] Work Phone: [facility] 04-30-2023 09:43-0400 Systolic blood pressure 108 mm[Hg] Judith Older [employer] Work Phone: [facility] 04-02-2023 14:11-0400 Diastolic blood pressure 84 mm[Hg] Yee Lind [employer] Work Phone: [facility] 04-02-2023 14:11-0400 Heart rate 94 /min Yee Lind [employer] Work Phone: [facility] 04-02-2023 14:11-0400 Systolic blood pressure 124 mm[Hg] Somers Lind [employer] Work Phone: [facility] 04-02-2023 12:50-0400 Body height 161 cm Prince Uribe MD Work Phone: [facility] 04-02-2023 12:50-0400 Body temperature 98.49 [degF] Prince Uribe MD Work Phone: [facility] 04-02-2023 12:50-0400 Body weight 61.92 kg Prince Uribe MD Work Phone: [facility] 04-02-2023 12:50-0400 Diastolic blood pressure 80 mm[Hg] Prince Uribe MD Work Phone: [facility] 04-02-2023 12:50-0400 Heart rate 101 /min Prince Uribe MD Work Phone: [facility] 04-02-2023 12:50-0400 SaO2% (BldA) [Mass fraction] 98 % Prince Uribe MD Work Phone: [facility] 04-02-2023 12:50-0400 Systolic blood pressure 130 mm[Hg] Prince Uribe MD Work Phone: [facility] 04-01-2023 19:04-0400 Diastolic blood pressure 87 mm[Hg] [facility] [place] 04-01-2023 19:04-0400 Heart rate 67 /min [facility] 04-01-2023 19:04-0400 Respiratory rate 14 /min [facility] 04-01-2023 19:04-0400 SaO2% (BldA) [Mass fraction] 98 % [facility] [place] 04-01-2023 19:04-0400 Systolic blood pressure 139 mm[Hg] [facility] [place] 04-01-2023 15:59-0400 Body height 165.1 cm [facility] 04-01-2023 15:59-0400 Body mass index (BMI) [Ratio] 23.4 kg/m2 [facility] [place] 04-01-2023 15:59-0400 Body temperature 97 [degF] [facility] 04-01-2023 15:59-0400 Body weight 63.95 kg [facility] 09-26-2022 08:59-0500 Body height 162.6 cm Maria Del Rosario Jesús PA-C Work Phone: [facility] 09-26-2022 08:59-0500 Body temperature 97.59 [degF] Maria Del Rosario Jesús PA-C Work Phone: [facility] 09-26-2022 08:59-0500 Body weight 71.4 kg Maria Del Rosario Jesús PA-C Work Phone: [facility] 09-26-2022 08:59-0500 Diastolic blood pressure 78 mm[Hg] Maria Del Rosario Mullan PA-C Work Phone: [facility] 09-26-2022 08:59-0500 Heart rate 96 /min Maria Del Rosario Mullan PA-C Work Phone: [facility] 09-26-2022 08:59-0500 SaO2% (BldA) [Mass fraction] 98 % Maria Del Rosario Jesús PA-C Work Phone: [facility] 09-26-2022 08:59-0500 Systolic blood pressure 118 mm[Hg] Maria Del Rosario Espinosa PA-C Work Phone: [facility] 09-10-2022 10:34-0500 Body height 162.6 cm Eden Petersen MD Work Phone: [facility] 09-10-2022 10:34-0500 Body temperature 98.1 [degF] Eden Petersen MD Work Phone: [facility] 09-10-2022 10:34-0500 Body weight 70.31 kg Eden Petersen MD Work Phone: [facility] 09-10-2022 10:34-0500 Diastolic blood pressure 66 mm[Hg] Eden Petersen MD Work Phone: [facility] 09-10-2022 10:34-0500 Heart rate 90 /min Eden Petersen MD Work Phone: [facility] 09-10-2022 10:34-0500 Respiratory rate 12 /min Eden Petersen MD Work Phone: [facility] 09-10-2022 10:34-0500 SaO2% (BldA) [Mass fraction] 98 % Eden Petersen MD Work Phone: [facility] 09-10-2022 10:34-0500 Systolic blood pressure 132 mm[Hg] Eden Petersen MD Work Phone: [facility] 01-02-2022 13:22-0400 Body height 160 cm Judith Older [employer] Work Phone: [facility] 01-02-2022 13:22-0400 Body weight 78.93 kg Judith Older [employer] Work Phone: [facility] 01-02-2022 13:22-0400 Diastolic blood pressure 78 mm[Hg] Judith Older [employer] Work Phone: [facility] 01-02-2022 13:22-0400 Heart rate 72 /min Judith Older [employer] Work Phone: [facility] 01-02-2022 13:22-0400 Respiratory rate 14 /min Judith Older [employer] Work Phone: [facility] 01-02-2022 13:22-0400 SaO2% (BldA) [Mass fraction] 99 % Judith Older [employer] Work Phone: [facility] 01-02-2022 13:22-0400 Systolic blood pressure 126 mm[Hg] Judith Older [employer] Work Phone: [facility] Encounters Encounter Date Encounter Type Care Provider Facility Start: 01-03-2025 End: 01-03-2025 ambulatory [facility] Facility:[facility] Start: 12-12-2024 End: 12-12-2024 Patient encounter procedure Prince Uribe MD Work Phone: Hematology/Oncology Start: 12-12-2024 End: 12-12-2024 ambulatory Prince Uribe MD Work Phone: Hematology/Oncology Comment on above: CML (chronic myeloid leukemia) (HCC) (Primary Dx) Start: 12-02-2024 End: 12-02-2024 ambulatory [facility] Facility:[facility] Start: 11-14-2024 End: 11-17-2024 ambulatory Prince Uribe MD Work Phone: Hematology/Oncology Start: 11-14-2024 End: 11-17-2024 Follow-up encounter Prince Uribe MD Work Phone: Hematology/Oncology Comment on above: Scheduling 3 month f ollow up apointment Start: 10-28-2024 End: 10-28-2024 Refill Prince Uribe MD Work Phone: Hematology/Oncology Comment on above: Refill Request Start: 10-17-2024 End: 12-17-2024 Follow-up encounter Marga Crowe MD Work Phone: OB/Gynecology Start: 10-14-2024 End: 10-17-2024 ambulatory Prince Uribe MD Work Phone: Hematology/Oncology Start: 10-14-2024 End: 10-17-2024 Patient encounter procedure Prince Uribe MD Work Phone: Hematology/Oncology Comment on above: Blood work appointme nts Start: 10-13-2024 End: 10-14-2024 Refill Judith Older [employer] Work Phone: [facility] [place] Comment on above: Refill Request Start: 09-30-2024 End: 11-30-2024 Follow-up encounter Marga Crowe MD Work Phone: OB/Gynecology Start: 09-29-2024 End: 09-29-2024 ambulatory [facility] Work Phone: OB/Gynecology Start: 09-29-2024 End: 09-29-2024 Patient encounter procedure Marga Crowe MD Work Phone: OB/Gynecology Comment on above: Endometrial thickeni ng on ultrasound (Primary Dx) Start: 09-27-2024 End: 09-27-2024 Refill Judith Older [employer] Work Phone: [facility] [place] Comment on above: Refill Request Start: 09-23-2024 End: 09-23-2024 ambulatory EDEN PETERSEN Facility:[facility] Start: 09-23-2024 End: 09-23-2024 Office outpatient visit 25 minutes Eden Petersen MD Work Phone: [facility] [place] Comment on above: Benign hypertension (Primary Dx); Screening for depression; Encounter for screening examination for other mental health and behavioral disorders; Acquired hypothyroidism; Degeneration of intervertebral disc of lumbar region, unspecified whether pain present; CML (chronic myelocytic leukemia) (HCC) Start: 09-13-2024 End: 09-13-2024 E-mail encounter from caregiver Prince Uribe MD Work Phone: Hematology/Oncology Start: 09-13-2024 End: 09-13-2024 ambulatory Prince Uribe MD Work Phone: Hematology/Oncology Comment on above: CML (chronic myeloid leukemia) (HCC) (Primary Dx) Start: 09-13-2024 End: 09-13-2024 Telemedicine consultation with patient Prince Uribe MD Work Phone: Hematology/Oncology Start: 09-06-2024 End: 09-06-2024 ambulatory Negro Dawson PT [facility] Comment on above: Degeneration of inte rvertebral disc of lumbar region, unspecified whether pain present (Primary Dx); Thoracogenic scoliosis, unspecified spinal region; Chronic bilateral low back pain, unspecified whether sciatica present Start: 09-06-2024 End: 09-06-2024 [facility] Facility:[facility] Start: 09-05-2024 End: 09-05-2024 [facility] Facility:[facility] Start: 09-05-2024 End: 09-05-2024 Patient encounter procedure Marga Crowe MD Work Phone: OB/Gynecology Comment on above: Endometrial thickeni ng on ultrasound (Primary Dx); Ovarian cyst, right Start: 09-03-2024 End: 09-05-2024 Refill Judith Howell APRN.CNP Work Phone: Internal Medicine [place] Comment on above: Refill Request Start: 08-26-2024 End: 08-26-2024 Emergency department patient visit Steve Welch Facility:[facility] Start: 08-17-2024 End: 08-17-2024 Telephone encounter Prince Uribe MD Work Phone: Hematology/Oncology Comment on above: insurance approval Start: 07-28-2024 End: 07-28-2024 ambulatory Negro Dawson PT [facility] Comment on above: Scoliosis, unspecifi ed scoliosis type, unspecified spinal region (Primary Dx); Degeneration of intervertebral disc of lumbar region, unspecified whether pain present; Chronic bilateral back pain, unspecified back location Start: 07-04-2024 End: 07-06-2024 ambulatory Eden Petersen MD Work Phone: Internal Medicine [place] Start: 07-04-2024 End: 07-06-2024 [facility] visit new patient Eden Petersen MD Work Phone: Internal Medicine [place] Comment on above: New patient Start: 07-01-2024 End: 11-01-2024 Telephone encounter Eden Petersen MD Work Phone: Internal Medicine [place] Comment on above: Results (Xray back/) Start: 07-01-2024 End: 07-01-2024 ambulatory [facility] Facility:[facility] Start: 07-01-2024 End: 07-01-2024 Subsequent hospital visit by physician [facility] Work Phone: Radiology Comment on above: Spotting [N92.0] Start: 06-27-2024 End: 06-27-2024 Refill Judith Howell APRN.CNP Work Phone: Internal Medicine [place] Comment on above: Refill Request Start: 06-24-2024 End: 06-24-2024 External Result Encounter Rahul Raman MD Work Phone: [facility] External Department Unsolicited Start: 06-24-2024 End: 06-24-2024 External Result Encounter Rahul Raman MD Work Phone: [facility] External Department Unsolicited Start: 06-21-2024 End: 06-21-2024 Subsequent hospital visit by physician [facility] [place] Work Phone: Radiology Comment on above: Scoliosis, unspecifi ed scoliosis type, unspecified spinal region [M41.9] Start: 06-21-2024 End: 06-21-2024 ambulatory [facility] Facility:[facility] Start: 06-21-2024 End: 06-21-2024 [facility] Facility:[facility] Start: 06-21-2024 End: 06-21-2024 Office outpatient visit 25 minutes Eden Petersen MD Work Phone: Internal Medicine [place] Comment on above: Vitamin D deficiency (Primary Dx); Iron deficiency; Spotting; Scoliosis, unspecified scoliosis type, unspecified spinal region; Screening for HIV (human immunodeficiency virus) Start: 06-17-2024 End: 06-17-2024 Bamboo flowsheet Rahul Raman MD Work Phone: [facility] Start: 06-17-2024 End: 06-17-2024 Bamboo flowsheet Rahul Raman MD Work Phone: [facility] Start: 06-17-2024 End: 06-17-2024 Patient encounter status Rahul Raman MD Work Phone: [facility] Work Phone: Start: 06-17-2024 End: 06-17-2024 Periodic preventive med est patient 40-64yrs Rahul Raman MD Work Phone: [facility] Comment on above: Encounter for gyneco logical examination with abnormal finding (Primary Dx); Menopause; Routine cervical smear; Menopausal symptoms Start: 06-17-2024 End: 06-17-2024 ambulatory RAHUL RAMAN Not Available Start: 06-10-2024 End: 06-10-2024 Telephone encounter Margarita GARCIA Hematology/Oncology Comment on above: SOCIAL WORK SERVICES (PRO TAUSSIG REPORT) Start: 06-09-2024 End: 06-09-2024 Patient encounter procedure Prince Uribe MD Work Phone: Hematology/Oncology Start: 06-09-2024 End: 06-09-2024 ambulatory Prince Uribe MD Work Phone: Hematology/Oncology Comment on above: CML (chronic myeloid leukemia) (HCC) (Primary Dx) Start: 06-01-2024 End: 06-01-2024 ambulatory [facility] Facility:[facility] Start: 05-06-2024 End: 05-09-2024 Refill Judith Howell APRN.CNP Work Phone: Internal Medicine [place] Comment on above: Refill Request Start: 05-04-2024 End: 05-05-2024 ambulatory Prince Uribe MD Work Phone: Hematology/Oncology Comment on above: Generic Sprycel Start: 04-26-2024 End: 04-28-2024 ambulatory Prince Uribe MD Work Phone: Hematology/Oncology Comment on above: Pain in neck and und erarm Start: 04-22-2024 End: 04-22-2024 Telephone encounter Judith Howell APRN.ROSE GROWER Work Phone: Internal Medicine [place] Comment on above: Results Start: 04-21-2024 End: 04-21-2024 ambulatory [facility] Facility:[facility] Start: 04-20-2024 End: 04-20-2024 ambulatory [facility] Facility:[facility] Start: 04-20-2024 End: 04-20-2024 Patient encounter procedure Judith Howell APRN.ROSE GROWER Work Phone: Internal Medicine [place] Comment on above: Abnormal menses (Kacie bailee Dx); Acquired hypothyroidism Start: 04-15-2024 End: 04-19-2024 ambulatory Judith Howell APRN.ROSE GROWER Work Phone: Internal Medicine [place] Comment on above: Spotting Start: 03-01-2024 End: 03-01-2024 Patient encounter procedure Prince Uribe MD Work Phone: Hematology/Oncology Start: 03-01-2024 End: 03-01-2024 ambulatory Prince Uribe MD Work Phone: Hematology/Oncology Comment on above: CML (chronic myeloid leukemia) (HCC) (Primary Dx) Start: 02-25-2024 Telephone encounter Judith Howell APRN.ROSE GROWER Work Phone: Internal Medicine [place] Comment on above: Results Start: 02-23-2024 End: 02-23-2024 ambulatory [facility] Facility:[facility] Start: 02-16-2024 End: 02-16-2024 ambulatory [facility] Facility:[facility] Start: 01-26-2024 End: 01-26-2024 ambulatory [facility] Facility:[facility] Start: 01-12-2024 End: 01-12-2024 ambulatory [facility] Facility:[facility] Start: 12-23-2023 End: 12-23-2023 ambulatory Marc Castillo DO Work Phone: Hematology/Oncology Comment on above: CML (chronic myeloid leukemia) (HCC) (Primary Dx) Start: 12-23-2023 End: 12-23-2023 Patient encounter procedure Marc Castillo DO Work Phone: Hematology/Oncology Start: 12-17-2023 End: 12-17-2023 Subsequent hospital visit by physician [facility] [place] Work Phone: Radiology Comment on above: Left hip pain [M25.5 52] Start: 12-17-2023 End: 12-17-2023 Ophthalmic examination and evaluation Judith Howell APRN.ROSE GROWER Work Phone: [facility] Start: 12-17-2023 End: 12-17-2023 Patient encounter procedure Judith Howell APRN.ROSE GROWER Work Phone: Internal Medicine [place] Comment on above: Benign hypertension (Primary Dx); Left hip pain; Anxiety and depression; Numbness and tingling; Acquired hypothyroidism; CML (chronic myelocytic leukemia) (HCC); Eye exam, routine Start: 12-04-2023 Telephone encounter Annie melendez RN Work Phone: Hematology/Oncology Start: 11-26-2023 ambulatory Prince jimenez MD Work Phone: Hematology/Oncology Comment on above: Possible side effect s Sprycel Start: 11-23-2023 ambulatory Prince jimenez MD Work Phone: [facility] Start: 11-23-2023 Patient encounter procedure Prince Uribe MD Work Phone: Hematology/Oncology Comment on above: Appointment for November 23 Start: 11-17-2023 ambulatory Prince jimenez MD Work Phone: Hematology/Oncology Comment on above: Sprycel Start: 11-09-2023 ambulatory Prince jimenez MD Work Phone: [facility] Start: 11-09-2023 Patient encounter procedure Prince Uribe MD Work Phone: Hematology/Oncology Comment on above: Scheduled blood work appointments and results Start: 11-03-2023 ambulatory Prince jimenez MD Work Phone: Hematology/Oncology Comment on above: Comp Metabolic Panel CO2 Result Start: 10-30-2023 ambulatory Prince jimenez MD Work Phone: Hematology/Oncology Comment on above: Recent blood test an d upcoming blood tests Start: 10-28-2023 Telephone encounter Prince edwards MD Work Phone: Hematology/Oncology Comment on above: Orders Start: 10-27-2023 Telephone encounter Prince edwards MD Work Phone: Hematology/Oncology Comment on above: Insurance Authorizat ion (SPRYCEL) Start: 10-27-2023 End: 10-27-2023 ambulatory Prince Uribe MD Work Phone: Hematology/Oncology Comment on above: CML (chronic myeloid leukemia) (HCC) (Primary Dx) Start: 10-27-2023 End: 10-27-2023 Patient encounter procedure Prince [facility]ribe [facility] Start: 10-14-2023 ambulatory Eden Plata Work Phone: Internal Medicine [facility] [place] Start: 09-18-2023 End: 09-18-2023 Patient encounter procedure Judith Howell APRN.CNP Work Phone: Internal Medicine [place] Comment on above: Benign hypertension (Primary Dx); Anxiety and depression; Insomnia, unspecified type Start: 09-10-2023 End: 09-10-2023 Patient encounter procedure Allison Daniels APRN.ROSE GROWER Work Phone: Dermatology Comment on above: Seborrheic keratosis (Primary Dx); Epidermal inclusion cyst; Rosacea; Androgenetic alopecia Start: 07-15-2023 Refill Judith SimsROSE GROWER Work Phone: Internal Medicine [place] Comment on above: Refill Request Start: 07-06-2023 ambulatory Yee carson APRN.CNP Work Phone: Hematology/Oncology Comment on above: BCR/ABL1 Start: 06-02-2023 End: 06-02-2023 ambulatory Prince Uribe MD Work Phone: Hematology/Oncology Comment on above: CML (chronic myeloid leukemia) (HCC) (Primary Dx) Start: 06-02-2023 End: 06-02-2023 Patient encounter procedure Prince Uribe MD Work Phone: [facility] Start: 05-12-2023 End: 05-12-2023 ambulatory Yee Lind MATRIX SUPERVISOR.[employer]SE [employer]OWER Work Phone: Hematology/Oncology Comment on above: CML (chronic myeloid leukemia) (HCC) (Primary Dx) Start: 05-12-2023 End: 05-12-2023 Patient encounter procedure Yee Lind MATRIX SUPERVISOR.ROSE [employer]OWER Work Phone: [facility] Start: 04-30-2023 End: 04-30-2023 Patient encounter procedure Judith Howell MATRIX SUPERVISOR.[employer]SE [employer]OWER Work Phone: Internal Medicine [place] Comment on above: Acquired hypothyroid ism (Primary Dx); CML (chronic myelocytic leukemia) (HCC); Medication management; High triglycerides; Benign hypertension; Rash Start: 04-24-2023 ambulatory Judith Older MATRIX SUPERVISOR .[employer] Work Phone: Internal Medicine [place] Comment on above: IC Bupropion HCL XL 300 MG Tablet Refill Request Start: 04-23-2023 Telephone encounter Annie melendez RN Work Phone: Hematology/Oncology Comment on above: Care Coordination Start: 04-21-2023 Telephone encounter Prince edwards MD Work Phone: Hematology/Oncology Comment on above: Urgent Start: 04-15-2023 ambulatory Prince jimenez MD Work Phone: Hematology/Oncology Comment on above: Triglycerides Start: 04-15-2023 Telephone encounter Annie melendez RN Work Phone: Hematology/Oncology Comment on above: Care Coordination (O RAL ANTI-CANCER AGENTS EDUCATION) Start: 04-09-2023 Refill Prince jimenez MD Work Phone: Hematology/Oncology Comment on above: Refill Request Jury Duty Imatinib Start: 04-07-2023 [facility] Comment on above: Pharmacy for medicat ion Start: 04-07-2023 Patient encounter procedure Ebony Torreso [facility] Comment on above: SPP Oral Oncology/he matology - Treatment Referral (Cody); Insurance Authorization (Pending PA submission) Start: 04-02-2023 Telephone encounter Prince edwards MD Work Phone: Hematology/Oncology Comment on above: Appointment Start: 04-02-2023 End: 04-02-2023 ambulatory Yee Lind APRN.ROSE GROWER Work Phone: Hematology/Oncology Comment on above: Leukemoid reaction Leukemoid reaction ( Primary Dx) Start: 04-02-2023 End: 04-02-2023 Patient encounter procedure Yee Lind APRN.ROSE GROWER Work Phone: [facility] Start: 04-01-2023 End: 04-01-2023 Emergency department patient visit [facility] Work Phone: Start: 02-24-2023 ambulatory Eden Petersen M D Work Phone: Internal Medicine [facility] Start: 11-05-2022 ambulatory Eden Petersen M D Work Phone: Internal Medicine [facility] Start: 10-28-2022 ambulatory Eden Petersen M D Work Phone: [facility] [place] Start: 10-28-2022 Patient encounter procedure Eden Petersen MD Work Phone: Internal Medicine [place] Comment on above: Med Check Appointmen t for Start: 09-26-2022 End: 09-26-2022 Patient encounter procedure Maria Del Rosario Espinosa PA-C Work Phone: General Surgery Comment on above: Encounter for screen ing for malignant neoplasm of colon (Primary Dx) Start: 09-10-2022 End: 09-10-2022 Patient encounter procedure Eden Petersen MD Work Phone: Internal Medicine [place] Comment on above: Anxiety and depressi on (Primary Dx); Overweight (BMI 25.0-29.9); Benign hypertension; Special screening for malignant neoplasms, colon; Hair loss Start: 09-04-2022 Refill Eden Plata Work Phone: Internal Medicine [place] Comment on above: Refill Request Start: 04-27-2022 Refill Judith Older MATRIX SUPERVISOR .[employer]SE [employer]OWER Work Phone: Internal Medicine [place] Comment on above: Refill Request Start: 04-02-2022 Refill Judith Older MATRIX SUPERVISOR .[employer] Work Phone: Internal Medicine [place] Comment on above: Refill Request Start: 04-01-2022 Refill Judith Older MATRIX SUPERVISOR .[employer] Work Phone: Internal Medicine [place] Comment on above: Refill Request Start: 03-28-2022 Refill Eden Plata Work Phone: Internal Medicine [place] Comment on above: Refill Request Start: 01-02-2022 End: 01-02-2022 Patient encounter procedure Judith Older MATRIX SUPERVISOR.[employer]SE [employer]OWER Work Phone: Internal Medicine [place] Comment on above: Annual physical exam (Primary Dx); Benign hypertension; Epidermoid cyst; Urinary retention; Anxiety and depression; Acne rosacea; Acquired hypothyroidism; Lipid screening Start: 12-17-2021 ambulatory Eden Plata Work Phone: Internal [facility] [place] Start: 12-06-2021 Refill Judith Older MATRIX SUPERVISOR .[employer]SE [employer]OWER Work Phone: Internal Medicine [place] Comment on above: Refill Request Start: 12-05-2021 Refill Judith Older MATRIX SUPERVISOR .[employer]OWER Work Phone: Internal Medicine [place] Comment on above: Refill Request Start: 12-04-2021 ambulatory Eden Plata Work Phone: Internal [facility] [place] Start: 10-29-2021 Refill Yani [place] MATRIX SUPERVISOR.[employer]SE [employer]OWER Work Phone: Internal Medicine [place] Comment on above: Refill Request Procedures Date Procedure Procedure Detail Performing Clinician Start: 09-29-2024 Us pelvic nonobstetr ic real-time image complete Marga Crowe MD Work Phone: Start: 09-23-2024 Adult depression scr eening assessment Eden Petersen MD Work Phone: Start: 06-17-2024 Gonadotropin follicl e stimulating hormone Rahul Raman MD Work Phone: Start: 12-17-2023 Radex hip unilateral with pelvis 2-3 views Judith Howell MATRIX SUPERVISOR.[employer]SE [employer]OWER Work Phone: Start: 06-30-2023 Lipid 1996 panel - S windy or Plasma Yee Lind MATRIX SUPERVISOR.[employer]OWER Work Phone: Start: 04-14-2023 Lipid 1996 panel - S windy or Plasma Annie Alba RN Work Phone: Start: 04-02-2023 Diagnostic bone marci ow biopsies & aspirations Yee Lind MATRIX SUPERVISOR.ROSE [employer]OWER Work Phone: Start: 04-01-2023 CT angiography of ch est with contrast Start: 04-01-2023 Plain chest X-ray Start: 01-02-2022 Adult depression scr eening assessment Judith Howell MATRIX SUPERVISOR.[employer]SE [employer]OWER Work Phone: Start: 12-22-2020 Adult depression scr eening assessment Yani [place] MATRIX SUPERVISOR.[employer]SE [employer]OWER Work Phone: Start: 03-05-2017 Mammography Yani Trent nhlazarus MATRIX SUPERVISOR.ROSE [employer]OWER Work Phone: Plan of Treatment Date Care Activity Detail Author Start: 06-30-2028 Lipid 1996 panel - Serum or Plasma Lipid Screening [facility] Start: 06-30-2028 Lipid panel Lipid Screening [facility] Start: 04-14-2028 Lipid 1996 panel - Serum or Plasma Lipid Screening [facility] Start: 04-14-[address] SCREEN [facility] Start: 12-03-2027 Diabetes Screening Diabetes Screening [facility] Start: 09-06-2027 Diabetes Screening Diabetes Screening [facility] Start: 06-09-2027 Diabetes Screening Diabetes Screening [facility] Start: 04-21-2027 Diabetes Screening Diabetes Screening [facility] Start: 03-01-2027 Diabetes Screening Diabetes Screening [facility] Start: 12-28-2026 Diabetes Screening Diabetes Screening [facility] Start: 12-14-2026 Diabetes Screening Diabetes Screening [facility] Start: 11-30-2026 Diabetes Screening Diabetes Screening [facility] Start: 11-16-2026 Diabetes Screening Diabetes Screening [facility] Start: 11-02-2026 Diabetes Screening Diabetes Screening [facility] Start: 08-11-2026 Diabetes Screening Diabetes Screening [facility] Start: 07-14-2026 Diabetes Screening Diabetes Screening [facility] Start: 06-30-2026 Diabetes Screening Diabetes Screening [facility] Start: 06-02-2026 Diabetes Screening Diabetes Screening [facility] Start: 05-12-2026 Diabetes Screening Diabetes Screening [facility] Start: 04-28-2026 Diabetes Screening Diabetes Screening [facility] Start: 04-21-2026 Diabetes Screening Diabetes Screening [facility] Start: 04-14-2026 DIABETES SCREEN DIABETES SCREEN [facility] Start: 01-17-2026 PAP TESTING PAP TESTING [facility] Start: 01-17-2026 Screening for malignant neoplasm of cervix Pap Testing [facility] Start: 12-12-2025 BP Controlled (<130/80) BP Controlled (<130/80) [facility] Start: 09-23-2025 Annual PCP Team Chronic Disease Visit Annual PCP Team Chronic Disease Visit [facility] Start: 09-23-2025 Anxiety Screening Anxiety Screening [facility] Start: 09-23-2025 BP Controlled (<130/80) BP Controlled (<130/80) [facility] Start: 09-23-2025 Covid-19 Vaccine () Covid-19 Vaccine () [facility] Comment on above: Postponed from 04/10/2024 (Declined at t his time) Start: 09-23-2025 Depression Screening Depression Screening [facility] Start: 09-05-2025 BP Controlled (<130/80) BP Controlled (<130/80) [facility] Start: 06-21-2025 Annual PCP Team Chronic Disease Visit Annual PCP Team Chronic Disease Visit [facility] Start: 06-17-2025 Screening for malignant neoplasm of breast Mammogram Screening [facility] Start: 06-17-2025 Screening for malignant neoplasm of cervix Cervical Cancer Screening [facility] Start: 06-09-2025 BP Controlled (<130/80) BP Controlled (<130/80) [facility] Start: 04-20-2025 Annual PCP Team Chronic Disease Visit Annual PCP Team Chronic Disease Visit [facility] Start: 04-20-2025 BP Controlled (<130/80) BP Controlled (<130/80) [facility] Start: 04-10-2025 Influenza vaccination Influenza Vaccine (Season Ended) [facility] Start: 03-27-2025 End: 03-27-2025 Patient encounter procedure 03/27/2025 9:20 AM EDT Office Visit Internal Medicine [place] [address] [place] [address] Eden Petersen MD [address] [place] [address] 6 month f/u Internal Medicine [place] Comment on above: 6 month f/u Start: 03-21-2025 End: 03-21-2025 ambulatory 03/21/2025 8:40 AM EDT [facility] Hematology/Oncology [address] [facility] [place] [address] Prince Uribe MD [address] [place] [address] 3MO VV Hematology/Oncology Comment on above: 3MO VV Start: 03-14-2025 End: 03-14-2025 ambulatory 03/14/2025 8:00 AM EDT Results Only [place] [facility] [address] [place] [address] [facility] Comment on above: CBC/CMP Start: 03-01-2025 BP Controlled (<130/80) BP Controlled (<130/80) [facility] Start: 02-06-2025 [facility] from 04/10/2024 (Declined at t his time) Start: 01-03-2025 End: 01-03-2025 ambulatory 01/03/2025 8:00 AM EDT Results Only [place] [facility] [address] [place] [address] [facility] Comment on above: CBC Start: 12-26-2024 End: 03-27-2025 CBC W Auto Differential panel - Blood COMPLETE BLOOD COUNT AND DIFFERENTIAL Lab Routine CML (chronic myeloid leukemia) (HCC) Expected: 12/26/2024, Expires: 03/27/2025 [facility] Work Phone: Comment on above: Expected: 12/26/2024, Expires: Start: 12-26-2024 End: 03-27-2025 Comprehensive metabolic 2000 panel - Serum or Plasma COMPREHENSIVE METABOLIC PANEL Lab Routine CML (chronic myeloid leukemia) (HCC) Expected: 12/26/2024, Expires: 03/27/2025 [facility] Comment on above: Expected: 12/26/2024, Expires: Start: 12-23-2024 DIABETES SCREEN DIABETES SCREEN [facility] Start: 12-22-2024 BP Controlled (<130/80) BP Controlled (<130/80) [facility] Start: 12-16-2024 Annual PCP Team Chronic Disease Visit Annual PCP Team Chronic Disease Visit [facility] Start: 12-16-2024 BP Controlled (<130/80) BP Controlled (<130/80) [facility] Start: 12-16-2024 Hepatitis B Vaccine (1 of 3 - 19+ 3-dose series) Hepatitis B Vaccine (1 of 3 - 19+ 3-dose series) [facility] Comment on above: Postponed from 01/24/1991 (Declined at t his time) Start: 12-16-2024 Pneumococcal vaccination Pneumococcal Vaccine (1 of 2 - PCV) [facility] Comment on above: Postponed from 01/24/1978 (Declined at t his time) Start: 12-16-2024 Shingrix Vaccine (1 of 2) Shingrix Vaccine (1 of 2) [facility] Comment on above: Postponed from 01/24/1991 (Declined at t his time) Start: 12-16-2024 Urine microalbumin profile DTaP,Tdap,Td Vaccine (2 - Td or Tdap) [facility] Comment on above: Postponed from 05/01/2021 (Declined at t his time) Start: 12-12-2024 End: 12-12-2024 ambulatory 12/12/2024 8:30 AM EDT Visit (SP) Office Hematology/Oncology [address] [place] [address] Prince Uribe MD [address] [place] [address] OV/LAB WEEK PRIOR* Hematology/Oncology Comment on above: OV/LAB WEEK PRIOR* Start: 12-02-2024 End: 12-02-2024 ambulatory [place] [facility] Start: 10-26-2024 BP Controlled (<130/80) BP Controlled (<130/80) [facility] Start: 10-17-2024 End: 10-17-2024 ambulatory 10/17/2024 8:45 AM EDT Results Only [place] [facility] [address] [place] [address] [place] [facility] Start: 09-29-2024 End: 09-29-2024 Patient encounter procedure 09/29/2024 10:10 AM EST Office Visit OB/Gynecology [address] [place] [address] Marga Crowe MD [address] [place] [address] Endometrial thickening on ultrasound [R93.89]; Ovarian cyst, right [N83.201] OB/Gynecology Comment on above: Endometrial thickening on ultrasound [R9 3.89]; Ovarian cyst, right [N83.201] Start: 09-29-2024 End: 09-29-2024 ambulatory 09/29/2024 9:30 AM EST Procedure OB/Gynecology [address] [place] [address] Remote, Stereotype Caster [facility] [address] [place] [address] Endometrial thickening on ultrasound [R93.89]; Ovarian cyst, right [N83.201] OB/Gynecology Comment on above: Endometrial thickening on ultrasound [R9 3.89]; Ovarian cyst, right [N83.201] Start: 09-23-2024 End: 09-23-2024 Patient encounter procedure 09/23/2024 9:20 AM EST Office Visit Internal Medicine [place] [address] [place] [address] Eden Petersen MD [address] [place] [address] 3 mo follow up Internal Medicine [place] Comment on above: 3 mo follow up Start: 09-18-2024 Annual PCP Team Chronic Disease Visit Annual PCP Team Chronic Disease Visit [facility] Start: 09-18-2024 BP Controlled (<130/80) BP Controlled (<130/80) [facility] Start: 09-13-2024 End: 09-13-2024 ambulatory 09/13/2024 8:40 AM EST [facility] Hematology/Oncology [address] [place] [address] [place] [address] [place], [place] [id number] 3 MO VOLLOW UP/LABS 09/06* Hematology/Oncology Comment on above: 3 MO VOLLOW UP/LABS 09/06* Start: 09-06-2024 End: 09-06-2024 ambulatory 09/06/2024 1:15 PM EST OT/PT/Speech Visit [facility] [address] [place] [address] Negro Dawson PT Scoliosis, unspecified scoliosis type, unspecified spinal region [M41.9]; Degeneration of intervertebral disc of lumbar region, unspecified whether pain present [M51.369]; Chronic bilateral back pain, unspecified back location [M54.9, G89.29] [facility] Comment on above: Scoliosis, unspecified scoliosis type, u nspecified spinal region [M41.9]; Degeneration of intervertebral disc of lumbar region, unspecified whether pain present [M51.369]; Chronic bilateral back pain, unspecified back location [M54.9, G89.29] Start: 09-06-2024 End: 09-06-2024 ambulatory [facility] Comment on above: CBC/CMP/BCR ABL PCR* (SO)CBC/CMP(S)/BCR A BL PCR* Start: 09-05-2024 End: 09-05-2024 Patient encounter procedure 09/05/2024 2:40 PM EST Office Visit OB/Gynecology [address] [place] [address] Marga Crowe MD [address] [place] [address] Endometrial thickening on ultrasound [R93.89] OB/Gynecology Comment on above: Endometrial thickening on ultrasound [R9 3.89] Start: 09-05-2024 End: 09-05-2025 US Pelvis PELVIC US [facility] Anc Imaging Routine Endometrial thickening on ultrasound Ovarian cyst, right Expected: 09/05/2024, Expires: 09/05/2025 [facility] Work Phone: Comment on above: Expected: 09/05/2024, Expires: Start: 08-22-2024 End: 08-22-2024 ambulatory 08/22/2024 12:15 PM EST OT/PT/Speech Visit [facility] [address] [place] [address] Negro Dawson, PT appt rescheduled on 08/12/24 /// Scoliosis, unspecified scoliosis type, unspecified spinal region [M41.9]; Degeneration of intervertebral disc of lumbar region, unspecified whether pain present [M51.369]; Chronic bilateral back pain, unspecified back location [M54.9, G89.29] [facility] Comment on above: appt rescheduled on 08/12/24 /// Scolios is, unspecified scoliosis type, unspecified spinal region [M41.9]; Degeneration of intervertebral disc of lumbar region, unspecified whether pain present [M51.369]; Chronic bilateral back pain, unspecified back location [M54.9, G89.29] Start: 08-17-2024 Covid-19 Vaccine () Covid-[address] Vacc[address] () [facility] Comment on above: Postponed from 04/10/2023 (Declined at t his time) Start: 08-12-2024 End: 08-12-2024 ambulatory 08/12/2024 9:45 AM EST OT/PT/Speech Visit [place] [facility] [address] [place] [address] Negro Dawson, PT Scoliosis, unspecified scoliosis type, unspecified spinal region [M41.9]; Degeneration of intervertebral disc of lumbar region, unspecified whether pain present [M51.369]; Chronic bilateral back pain, unspecified back location [M54.9, G89.29] [place] [facility] Comment on above: Scoliosis, unspecified scoliosis type, u nspecified spinal region [M41.9]; Degeneration of intervertebral disc of lumbar region, unspecified whether pain present [M51.369]; Chronic bilateral back pain, unspecified back location [M54.9, G89.29] Start: 07-01-2024 End: 07-01-2024 Patient encounter procedure Radiology Comment on above: Spotting [N92.0] Start: 06-21-2024 End: 06-21-2024 Patient encounter procedure 06/21/2024 9:20 AM EST Office Visit Internal Medicine [place] [address] [place] [address] Eden Petersen MD [address] [place] [address] 6 month follow up [facility] [place] Comment on above: 6 month follow up Start: 06-17-2024 End: 06-17-2024 Patient encounter procedure 06/17/2024 11:30 AM EST Office Visit [facility] [address] [place] [address] Rahul Raman MD [address] [place] [address] Arrived [facility] Comment on above: Arrived Start: 06-09-2024 End: 06-09-2024 ambulatory 06/09/2024 9:40 AM EDT Visit (SP) Office Hematology/Oncology [address] [place] [address] [place] [address] [place] [address] 3 MO OV/LAB 06/01* Hematology/Oncology Comment on above: 3 MO OV/LAB 06/01* Start: 06-02-2024 BP Controlled (<130/80) BP Controlled (<130/80) [facility] Start: 06-01-2024 End: 06-01-2024 ambulatory 06/01/2024 8:30 AM EDT Results Only [place] [facility] [address] [place] [address] LAB* [place] [facility] Comment on above: LAB* Start: 05-12-2024 BP Controlled (<130/80) BP Controlled (<130/80) [facility] Start: 04-30-2024 Annual PCP Team Chronic Disease Visit Annual PCP Team Chronic Disease Visit [facility] Start: 04-30-2024 BP Controlled (<130/80) BP Controlled (<130/80) [facility] Start: 04-20-2024 End: 07-20-2024 Basic metabolic 2000 panel - Serum or Plasma BASIC METABOLIC PANEL Lab Routine Abnormal menses Expected: 04/20/2024, Expires: 07/20/2024 [facility] Comment on above: Expected: 04/20/2024, Expires: 4 Start: 04-20-2024 End: 07-20-2024 CBC W Auto Differential panel - Blood COMPLETE BLOOD COUNT AND DIFFERENTIAL Lab Routine Abnormal menses Expected: 04/20/2024, Expires: 07/20/2024 [facility] Comment on above: Expected: 04/20/2024, Expires: Start: 04-20-2024 End: 07-20-2024 Choriogonadotropin ( test) [Presence] in Urine HCG, QUALITATIVE, URINE Lab Routine Abnormal menses Expected: 04/20/2024, Expires: 07/20/2024 [facility] Work Phone: Comment on above: Expected: 04/20/2024, Expires: Start: 04-20-2024 End: 07-20-2024 Thyrotropin [Units/volume] in Serum or Plasma THYROID STIMULATING HORMONE Lab Routine Abnormal menses Acquired hypothyroidism Expected: 04/20/2024, Expires: 07/20/2024 [facility] Comment on above: Expected: 04/20/2024, Expires: Start: 04-20-2024 End: 07-20-2024 Thyroxine (T4) free [Mass/volume] in Serum or Plasma T4 FREE/FREE THYROXINE Lab Routine Abnormal menses Acquired hypothyroidism Expected: 04/20/2024, Expires: 07/20/2024 [facility] Comment on above: Expected: 04/20/2024, Expires: Start: 04-20-2024 End: 07-20-2024 Triiodothyronine (T3) Free [Mass/volume] in Serum or Plasma T3, FREE Lab Routine Abnormal menses Acquired hypothyroidism Expected: 04/20/2024, Expires: 07/20/2024 [facility] Comment on above: Expected: 04/20/2024, Expires: Start: 04-20-2024 End: 04-20-2024 Patient encounter procedure 04/20/2024 11:20 AM EDT Office Visit Internal Medicine [place] [address] [place] [address] Judith Howell APRN.[facility] [address] [place] [address] spotting over two weeks Internal [facility] [place] Comment on above: spotting over two weeks Start: 04-10-2024 Covid-19 Vaccine ( season) Covid-19 Vaccine () [facility] Start: 04-10-2024 Covid-19 Vaccine () Covid-19 Vaccine () [facility] Start: 04-10-[address] [facility] Start: 03-01-2024 End: 03-01-2024 ambulatory Hematology/Oncology Comment on above: BCR/ABL P210 and P190 in 2 months and th en an OV with Dr. Uribe 1 week after labs. CBC* Start: 02-23-2024 End: 02-23-2024 ambulatory 02/23/2024 8:30 AM EDT Results [facility] [address] [place] [address] BCR/ABL P210 and P190 [facility] Comment on above: BCR/ABL P210 and P190 Start: 02-07-2024 Influenza vaccination Influenza Vaccine (#1) [facility] Comment on above: Postponed from 04/10/2023 (Declined at t his time) Start: 12-29-2023 End: 12-29-2023 ambulatory 12/29/2023 8:30 AM EDT Results Only [place] [facility] [address] [place] [address] Q2WK CBC/CMP/ #2-4 [facility] Comment on above: Q2WK CBC/CMP/ #2-4 Start: 12-23-2023 End: 12-23-2023 ambulatory 12/23/2023 8:20 AM EDT Visit (SP) Office Hematology/Oncology [address] [place] [address] [place] [address] [place] [address] 1MO OV/LABS EARLY/ ON SPRYCEL* Hematology/Oncology Comment on above: 1MO OV/LABS EARLY/ ON SPRYCEL* Start: 12-22-2023 DIABETES SCREEN DIABETES SCREEN [facility] Start: 12-17-2023 End: 03-17-2024 Cobalamin (Vitamin B12) [Mass/volume] in Serum or Plasma VITAMIN B12 Lab Routine Numbness and tingling Expected: 12/17/2023, Expires: 03/17/2024 [facility] Comment on above: Expected: 12/17/2023, Expires: Start: 12-17-2023 End: 03-17-2024 Thyrotropin [Units/volume] in Serum or Plasma THYROID STIMULATING HORMONE Lab Routine Numbness and tingling Acquired hypothyroidism Expected: 12/17/2023, Expires: 03/17/2024 [facility] Comment on above: Expected: 12/17/2023, Expires: Start: 12-17-2023 End: 03-17-2024 Thyroxine (T4) free [Mass/volume] in Serum or Plasma T4 FREE/FREE THYROXINE Lab Routine Numbness and tingling Acquired hypothyroidism Expected: 12/17/2023, Expires: 03/17/2024 [facility] Comment on above: Expected: 12/17/2023, Expires: Start: 12-17-2023 End: 12-17-2023 Patient encounter procedure 12/17/2023 10:20 AM EDT Office Visit Internal Medicine [place] [address] [facility] [place] [id number] Judith Howell APRN.[facility] [address] [facility] [place] [address] 3 month follow up Internal Medicine [place] Comment on above: 3 month follow up Start: 12-15-2023 End: 12-15-2023 ambulatory 12/15/2023 8:30 AM EDT Results Only [facility] [address] [place] [facility] [place] [address] Q2WK CBC/CMP/ #2-4 [facility] Comment on above: Q2WK CBC/CMP/ #2-4 Start: 10-28-2023 End: 01-27-2024 BCR-ABL1 kinase domain mutations found [Identifier] in Blood or Tissue by Molecular genetics method Nominal BCR/ABL KINASE DOMAIN Lab Routine CML (chronic myeloid leukemia) (HCC) Expected: 10/28/2023, Expires: 01/27/2024 [facility] Work Phone: Comment on above: Expected: 10/28/2023, Expires: Start: 10-23-2023 ANNUAL PCP TEAM CHRONIC DISEASE VISIT ANNUAL PCP TEAM CHRONIC DISEASE VISIT [facility] Start: 10-23-2023 BP CONTROLLED (<130/80) BP CONTROLLED (<130/80) [facility] Start: 09-26-2023 BP CONTROLLED (<130/80) BP CONTROLLED (<130/80) [facility] Start: 09-10-2023 ANNUAL PCP TEAM CHRONIC DISEASE VISIT ANNUAL PCP TEAM CHRONIC DISEASE VISIT [facility] Start: 08-10-2023 Depression Assessment Depression Assessment [facility] Start: 06-07-2023 PAP TESTING PAP TESTING [facility] Start: 05-26-2023 End: 07-26-2023 Lipid 1996 panel - Serum or Plasma LIPID PANEL BASIC Lab Routine High triglycerides Expected: 05/26/2023, Expires: 07/26/2023 [facility] Work Phone: Comment on above: Expected: 05/26/2023, Expires: 3 Start: 05-26-2023 End: 07-26-2023 Thyrotropin [Units/volume] in Serum or Plasma TSH BLD Lab Routine Acquired hypothyroidism Medication management Expected: 05/26/2023, Expires: 07/26/2023 [facility] Work Phone: Comment on above: Expected: 05/26/2023, Expires: 3 Start: 05-26-2023 End: 07-26-2023 Thyroxine (T4) free [Mass/volume] in Serum or Plasma T4 FREE/FREE THYROX Lab Routine Acquired hypothyroidism Medication management Expected: 05/26/2023, Expires: 07/26/2023 [facility] Work Phone: Comment on above: Expected: 05/26/2023, Expires: 3 Start: 04-10-2023 Covid-19 Vaccine () Covid-19 Vaccine () [facility] Start: 04-10-[address] [facility] Start: 04-02-2023 End: 06-02-2023 BCR/ABL1 P210 AND P190 DIAGNOSTIC PCR BLOOD [facility] Work Phone: Comment on above: Expected: 04/02/2023, Expires: 3 Start: 04-02-2023 End: 06-02-2023 CBC W Auto Differential panel - Blood [facility] Work Phone: Comment on above: Expected: 04/02/2023, Expires: 3 Start: 04-02-2023 End: 06-02-2023 MYELOID NGS PANEL PERIPHERAL BLOOD [facility] Work Phone: Comment on above: Expected: 04/02/2023, Expires: 3 Start: 04-01-2023 Troponin I measurement [facility] Start: 04-01-2023 [facility] Start: 02-24-2023 End: 04-26-2023 Basic metabolic 2000 panel - Serum or Plasma BASIC METABOLIC PNL Lab Routine Benign hypertension Expected: 02/24/2023, Expires: 04/26/2023 [facility] Work Phone: Comment on above: Expected: 02/24/2023, Expires: 3 Start: 02-24-2023 End: 04-26-2023 Lipid 1996 panel - Serum or Plasma LIPID PANEL BASIC Lab Routine Benign hypertension Expected: 02/24/2023, Expires: 04/26/2023 [facility] Work Phone: Comment on above: Expected: 02/24/2023, Expires: 3 Start: 01-02-2023 Adult depression screening assessment DEPRESSION SCREENING [facility] Start: 01-02-2023 ANNUAL PCP TEAM CHRONIC DISEASE VISIT ANNUAL PCP TEAM CHRONIC DISEASE VISIT [facility] Start: 01-02-2023 BP CONTROLLED (<130/80) BP CONTROLLED (<130/80) [facility] Start: 01-02-2023 COLORECTAL CANCER SCREENING COLORECTAL CANCER SCREENING [facility] Comment on above: Postponed from 01/24/2017 (Declined at t his time) Start: 01-02-2023 HEPATITIS C SCREENING HEPATITIS C SCREENING [facility] Comment on above: Postponed from 01/24/1990 (Declined at t his time) Start: 01-02-2023 HIV [address] HIV SCREENING [facility] Comment on above: Postponed from 01/24/1990 (Declined at t his time) Start: 01-02-[address] [facility] Comment on above: Postponed from 01/24/2002 (Declined at t his time) Start: 01-02-2023 Urine microalbumin profile DTAP,TDAP,TD (1 - Tdap) [facility] Comment on above: Postponed from 01/24/1991 (Declined at t his time) Start: 09-03-[address]EN [facility] Start: 08-10-2022 DEPRESSION ASSESSMENT DEPRESSION ASSESSMENT [facility] Start: 07-31-2022 COVID-19 VACCINE (6 - Moderna risk series) COVID-19 VACCINE (6 - Moderna risk series) [facility] Start: 06-18-2022 End: 08-18-2022 Comprehensive metabolic 2000 panel - Serum or Plasma COMP METABOLIC PANEL Lab Routine Lipid screening Benign hypertension Expected: 06/18/2022 (Approximate), Expires: 08/18/2022 [facility] Work Phone: Comment on above: Expected: 06/18/2022 (Approximate), Expi res: 08/18/2022 Start: 06-18-2022 End: 08-18-2022 LIPID PANEL BASIC LIPID PANEL BASIC Lab Routine Lipid screening Expected: 06/18/2022 (Approximate), Expires: 08/18/2022 [facility] Work Phone: Comment on above: Expected: 06/18/2022 (Approximate), Expi res: 08/18/2022 Start: 04-10-[address] [facility] Start: 02-05-2022 ANNUAL PCP TEAM CHRONIC DISEASE VISIT ANNUAL PCP TEAM CHRONIC DISEASE VISIT [facility] Start: 01-24-2022 COVID-19 VACCINE (4 - Booster for Moderna series) COVID-19 VACCINE (4 - Booster for Moderna series) [facility] Start: 01-24-2022 SHINGRIX VACCINE (1 of 2) SHINGRIX VACCINE (1 of 2) [facility] Start: 01-17-2022 Screening for malignant neoplasm of cervix Cervical Cancer Screening [facility] Start: 12-22-2021 Adult depression screening assessment DEPRESSION SCREENING [facility] Start: 12-17-2021 End: 02-16-2022 Basic metabolic 2000 panel - Serum or Plasma BASIC METABOLIC PNL Lab Routine Benign hypertension Expected: 12/17/2021, Expires: 02/16/2022 [facility] Work Phone: Comment on above: Expected: 12/17/2021, Expires: 2 Start: 12-17-2021 End: 02-16-2022 SCHEDULE LAB TESTING SCHEDULE LAB TESTING Lab Routine Expected: 12/17/2021, Expires: 02/16/2022 [facility] Work Phone: Comment on above: Expected: 12/17/2021, Expires: 2 Start: 12-17-2021 End: 02-16-2022 Thyrotropin [Units/volume] in Serum or Plasma TSH BLD Lab Routine Acquired hypothyroidism Expected: 12/17/2021, Expires: 02/16/2022 [facility] Work Phone: Comment on above: Expected: 12/17/2021, Expires: 2 Start: 09-05-2021 COVID-19 VACCINE (4 - Booster for Moderna series) COVID-19 VACCINE (4 - Booster for Moderna series) [facility] Start: 05-01-2021 COVID-19 VACCINE (3 - Booster for Moderna series) COVID-19 VACCINE (3 - Booster for Moderna series) [facility] Start: 05-01-2021 Urine microalbumin profile DTaP,Tdap,Td Vaccine (2 - Td or Tdap) [facility] Start: 04-10-2021 Influenza vaccination INFLUENZA (#1) [facility] Start: 03-05-[address] [facility] Start: 03-05-2018 Screening for malignant neoplasm of breast Mammogram Screening [facility] Start: 01-24-2017 COLOGUARD (FIT-DNA) COLOGUARD (FIT-DNA) [facility] Start: 01-24-[address] [facility] Start: 01-24-2017 COLORECTAL CANCER SCREENING COLORECTAL CANCER SCREENING [facility] Start: 01-24-[address] [facility] Start: 01-24-2017 FECAL OCCULT BLOOD FECAL OCCULT BLOOD [facility] Start: 01-24-2017 Screening for malignant neoplasm of colon [facility] Start: 01-24-[address] [facility] Start: 2012 Screening for malignant neoplasm of breast Mammogram [facility] Start: 01-24-2002 HPV TEST[address] TESTING [facility] Start: 01-24-2002 Screening for malignant neoplasm of cervix [facility] Start: 01-24-1993 Screening for malignant neoplasm of cervix Pap Smear [facility] Start: 01-24-1991 Hepatitis B Vaccine (1 of 3 - 19+ 3-dose series) Hepatitis B Vaccine (1 of 3 - 19+ 3-dose series) [facility] Start: 01-24-1991 Pneumococcal Vaccine: 50+ (1 of 2 - PCV) Pneumococcal Vaccine: 50+ (1 of 2 - PCV) [facility] Start: 01-24-1991 SHINGRIX VACCINE (1 of 2) SHINGRIX VACCINE (1 of 2) [facility] Start: 01-24-1991 Urine microalbumin profile [facility] Start: 01-24-1990 Anxiety Screening Anxiety Screening [facility] Start: 01-24-1990 BP CONTROLLED (<130/80) BP CONTROLLED (<130/80) [facility] Start: 01-24-1990 Depression Screening Depression Screening [facility] Start: 01-24-1990 HEPATITIS C SCREENING HEPATITIS C SCREENING [facility] Start: 01-24-1990 HIV SCREENING HIV SCREENING [facility] Start: 01-24-1990 HIV screening HIV Screening [facility] Start: 01-24-1978 PNEUMOCOCCAL (1 - PCV) PNEUMOCOCCAL (1 - PCV) [facility] Start: 01-24-1978 Pneumococcal vaccination [facility] Start: 1972 HEPATITIS B (1 of 3 - 3-dose series) HEPATITIS B (1 of 3 - 3-dose series) [facility] Start: 1972 Hepatitis B Vaccine (1 of 3 - 3-dose series) Hepatitis B Vaccine (1 of 3 - 3-dose series) [facility] Start: 1972 Screening for malignant neoplasm of colon [facility] End: 05-26-2024 BCR/ABL1 P190 QUANTITATIVE PCR BLOOD BCR/ABL1 P190 QUANTITATIVE PCR BLOOD Lab Routine CML (chronic myeloid leukemia) (HCC) Every 3 months for 4 Occurrences starting 05/27/2023 until 05/26/2024 [facility] Work Phone: Comment on above: Every 3 months for 4 Occurrences startin g 05/27/2023 until 05/26/2024 End: 05-26-2024 BCR/ABL1 P210 QUANTITATIVE PCR BLOOD BCR/ABL1 P210 QUANTITATIVE PCR BLOOD Lab Routine CML (chronic myeloid leukemia) ([facility]) Every 3 months for 4 Occurrences starting 05/27/2023 until 05/26/2024 [facility] Work Phone: Comment on above: Every 3 months for 4 Occurrences startin g 05/27/2023 until 05/26/2024 End: 03-01-2025 BCR/ABL1 P210 QUANTITATIVE PCR BLOOD BCR/ABL1 P210 QUANTITATIVE PCR BLOOD Lab Routine CML (chronic myeloid leukemia) ([facility]) Every 3 months for 4 Occurrences starting 03/01/2024 until 03/01/2025 [facility] Work Phone: Comment on above: Every 3 months for 4 Occurrences startin g 03/01/2024 until 03/01/2025 BONE MARROW ANALYSIS BONE MARROW ANALYSIS Lab Routine Leukemoid reaction 04/02/2023 1:39 PM EDT [facility] Work Phone: End: 10-26-2024 CBC W Auto Differential panel - Blood CBC + DIFF Lab Routine CML (chronic myeloid leukemia) ([facility]) Every other week for 4 Occurrences starting 10/27/2023 until 10/26/2024 [facility] Work Phone: Comment on above: Every other week for 4 Occurrences start ing 10/27/2023 until 10/26/2024 End: 10-26-2024 Comprehensive metabolic 2000 panel - Serum or Plasma COMP METABOLIC PANEL Lab Routine CML (chronic myeloid leukemia) ([facility]) Every other week for 4 Occurrences starting 10/27/2023 until 10/26/2024 [facility] Work Phone: Comment on above: Every other week for 4 Occurrences start ing 10/27/2023 until 10/26/2024 End: 12-05-2023 CHRIS SCREENING CHRIS SCREENING Radiology Routine Encounter for screening mammogram for breast cancer 1 Occurrences starting 11/05/2022 until 12/05/2023 [facility] Work Phone: Comment on above: 1 Occurrences starting 11/05/2022 until 12/05/2023 End: 11-12-2024 MG Breast Screening CHRIS SCREENING Radiology Routine Encounter for screening mammogram for breast cancer 1 Occurrences starting 10/14/2023 until 11/12/2024 [facility] Work Phone: Comment on above: 1 Occurrences starting 10/14/2023 until 11/12/2024 OFFICE HYSTEROSCOPY OFFICE HYSTE ROSCOPY Procedures Routine Endometrial thickening on ultrasound Ordered: 09/29/2024 [facility] Comment on above: Ordered: 09/29/2024 Patient Education What Is Leukem ia? ED Chest Pain, Uncertain Cause [facility] Work Phone: Patient referral [facility] Work Phone: End: 09-10-2023 Screening colonoscopy COLONOSCOPY SCREENING Endoscopy Routine Special screening for malignant neoplasms, colon 1 Occurrences starting 09/10/2022 until 09/10/2023 [facility] Work Phone: Comment on above: 1 Occurrences starting 09/10/2022 until 09/10/2023 End: 01-03-2023 Screening mammography bi 2-view breast inc cad CHRIS SCREENING Radiology Routine Encounter for screening mammogram for breast cancer 1 Occurrences starting 12/04/2021 until 01/03/2023 [facility] Work Phone: Comment on above: 1 Occurrences starting 12/04/2021 until 01/03/2023 THINPREP IMAGING PAP W/REFL HPV MRNA E6/E7 THINPREP IMAGING PAP W/REFL HPV MRNA E6/E7 Pathology and Cytology Routine Routine cervical smear Ordered: 06/17/2024 [facility] Work Phone: Comment on above: Ordered: 06/17/2024 Tissue Pathology bio psy report SURGICAL PATHOLOGY Lab Routine Endometrial thickening on ultrasound 09/29/2024 10:[address] [facility] UA DIP,URINE HCG (POC) UA DIP,UR INE HCG (POC) Lab Routine Endometrial thickening on ultrasound Ordered: 09/29/2024 [facility] Work Phone: Comment on above: Ordered: 09/29/2024 End: 07-21-2025 US Pelvis limited US FEMALE PELVIS TRANSABD LTD Radiology Routine Spotting 1 Occurrences starting 06/21/2024 until 07/21/2025 [facility] Work Phone: Comment on above: 1 Occurrences starting 06/21/2024 until 07/21/2025 US Pelvis limited US FEMALE PELV IS TRANSABD LTD Radiology Routine Spotting 07/01/2024 8:55 AM EST [facility] Work Phone: End: 07-21-2025 US Pelvis transvaginal US FEMALE PELVIS TRANSVAG Radiology Routine Spotting 1 Occurrences starting 06/21/2024 until 07/21/2025 [facility] Comment on above: 1 Occurrences starting 06/21/2024 until 07/21/2025 US Pelvis transvaginal US FEMALE PELVIS TRANSVAG Radiology Routine Spotting 07/01/2024 8:[address] [facility] End: 01-15-2025 XR Pelvis and Hip - left AP and Lateral frog XR HIP GENERAL 3V PELV/AP/LAT LEFT Radiology Routine Left hip pain 1 Occurrences starting 12/17/2023 until 01/15/2025 [facility] Work Phone: Comment on above: 1 Occurrences starting 12/17/2023 until 01/15/2025 XR Pelvis and Hip - left AP and Lateral frog XR HIP GENERAL 3V PELV/AP/LAT LEFT Radiology Routine Left hip pain 12/17/2023 11:[address] [facility] XR Thoracic and lumb ar spine Views for scoliosis W standing XR SCOLIOSIS PA STAND/LAT 2V Radiology Routine Scoliosis, unspecified scoliosis type, unspecified spinal region 06/21/2024 11:32 AM EST [facility] Work Phone: End: 07-21-2025 XR Thoracic and lumbar spine Views for scoliosis W standing XR SCOLIOSIS PA STAND/LAT 2V Radiology Routine Scoliosis, unspecified scoliosis type, unspecified spinal region 1 Occurrences starting 06/21/2024 until 07/21/2025 [facility] Comment on above: 1 Occurrences starting 06/21/2024 until 07/21/2025 [facility] Immunizations Immunization Date Immunization Notes Care Provider Fa baldo 06-25-2021 influenza, injectabl e, quadrivalent, preservative free Judith Older [employer] Work Phone: [facility] 06-25-2021 influenza virus vacc ine, unspecified formulation Annie Alba RN Work Phone: [facility] 11-01-2020 COVID-19 vaccine, fu ll dose (MODERNA) Yani Fulton [employer] Work Phone: [facility] 04-23-2020 influenza, injectabl e, quadrivalent, contains preservative Judith Older [employer] Work Phone: [facility] 05-27-2019 influenza, injectabl e, quadrivalent, preservative free Judith Older [employer] Work Phone: [facility] 06-04-2018 influenza, injectabl e, quadrivalent, preservative free Judith Older [employer] Work Phone: [facility] 06-04-2016 influenza, injectabl e, quadrivalent, preservative free Judith Older [employer] Work Phone: [facility] 06-06-2015 influenza, injectabl e, quadrivalent, preservative free Judith Older [employer] Work Phone: [facility] 05-02-2011 measles, mumps and rubella virus vaccine Judith Older [employer] Work Phone: [facility] 05-01-2011 tetanus toxoid, redu nelli diphtheria toxoid, and acellular pertussis vaccine, adsorbed Judith Older [employer] Work Phone: [facility] Payers Date Payer Category Payer Self-pay 2023 Private Health Insurance [id number] 2023 Managed Care HMO (unspecified) [employer] [id number] 2019 Private Health Insurance [employer] A ETNA CHOICE POS II [id number] 2019-Present [phone] [address] [place] [address] POS [id number] 2019 Private Health Insurance [id number] 1970 Unknown [id number] Private Health Insurance [employer] [id number] Unknown [id number] Social History Date Type Detail Facility Start: 11-16-2015 End: 09-10-2022 Tobacco smoking status MNIS Never smoked tobacco [facility] Start: 11-16-2015 End: 09-10-2022 Tobacco use and exposure Smokeless tobacco non-user [facility] Start: 12-25-2020 End: 09-10-2022 Alcohol intake Not Asked [facility] Start: 12-23-2020 End: 09-09-2022 History SDOH Alcohol Frequency 3 [facility] Start: 12-23-2020 End: 09-09-2022 History SDOH Alcohol Std Drinks 1 [facility] Start: 12-23-2020 End: 09-09-2022 History SDOH Social Connections Membership 2 [facility] Start: 12-23-2020 End: 09-09-2022 History SDOH Physical Activity DPW 5 [facility] Start: 12-22-[address] [facility] Start: 1970 Sex Assigned At Female [facility] Work Phone: Start: 11-26-2021 End: 12-06-2021 Exposure to SARS-CoV-2 (event) Not sure [facility] Work Phone: Start: 01-01-2022 End: 09-09-2022 History SDOH Social Connections Phone 4 [facility] Start: 01-01-2022 End: 09-09-2022 History SDOH Social Connections Get Together 98 [facility] Start: 01-01-2022 History SDOH Physical Activity DPW 7 [facility] Start: 09-09-2022 History SDOH Physical Activity MPS 6 [facility] Start: 09-26-2022 End: 09-10-2023 Alcohol intake Current drinker of alcohol (finding) [facility] Start: 09-26-[address] [facility] Start: 09-09-2022 End: 03-11-2023 History of [address] function [facility] Start: 09-09-2022 End: 03-11-2023 Social connection and isolation panel [facility] How often do you get together with friends or relatives? Patient refused [facility] Do you belong to any clubs or organizations such as quaker groups, unions, fraternal or athletic groups, or school groups? No [facility] Are you now , , , , never or living with a partner? [facility] How often to you hav e a drink containing alcohol? Monthly or less [facility] How many standard dr inks containing alcohol do you have on a typical day? [address] [facility] How often do you hav e 6 or more drinks on 1 occasion? Never [facility] Do you feel stress - tense, restless, nervous, or anxious, or unable to sleep at night because your mind is troubled all the time - these days [OSQ] Only a little [facility] (I/We) worried whesam er (my/our) food would run out before (I/we) got money to buy more. Never true [facility] Start: 03-13-2017 Gender identity Identifies as female gender (finding) [facility] Work Phone: Start: 03-13-2017 Sexual orientation Heterosexual (finding) [facility] Work Phone: Start: 04-01-2023 Tobacco smoking status NHIS Unknown if ever smoked [facility] Do you feel stress - tense, restless, nervous, or anxious, or unable to sleep at night because your mind is troubled all the time - these days [OSQ] Rather much [facility] Start: 03-01-2024 End: 09-29-2024 Alcohol intake Ex-drinker (finding) [facility] Start: 1970 Sex assigned at Not on file [facility] Functional Status Date Assessment Result Facility 09-22-2024 Total score [AUDIT-C] 1 09/22/19 11:29 PM EST User, Charly [facility] 09-22-2024 Within the last year , have you been humiliated or emotionally abused in other ways by your partner or ex-partner? No 09/22/2024 11:29 PM EST [facility], [email or web address] No [facility] 09-22-2024 Within the last year , have you been afraid of your partner or ex-partner? No 09/22/2024 11:29 PM EST User, [email or web address] 09-22-2024 Within the last year , have you been raped or forced to have any kind of sexual activity by your partner or ex-partner? No 09/22/2024 11:29 PM EST User, [email or web address] 09-22-2024 Within the last year , have you been kicked, hit, slapped, or otherwise physically hurt by your partner or ex-partner? No 09/22/2024 11:29 PM EST User, [email or web address] No [facility] 09-22-2024 How often to you hav e a drink containing alcohol? Monthly or less 09/22/2024 11:29 PM EST User, [email or web address] Monthly or less [facility] 09-22-[address] inks containing alcohol do you have on a typical day? 1 or 2 09/22/2024 11:29 PM EST User, [email or web address] [address] [facility] 09-22-2024 How often do you hav e 6 or more drinks on 1 occasion? Never 09/22/2024 11:29 PM Charly Cross Never [facility] 09-10-2022 Are you deaf, or do you have serious difficulty hearing No 09/10/2022 11:47 AM Eden Mohamud MD No [facility] 09-10-2022 Are you blind, or do you have serious difficulty seeing, even when wearing glasses No 09/10/2022 11:47 AM Eden Mohamud MD No [facility] 09-10-2022 Do you have serious difficulty walking or climbing stairs No 09/10/2022 11:47 AM Eden Mohamud MD No [facility] 09-10-2022 Do you have difficul ty dressing or bathing No 09/10/2022 11:47 AM Eden Mohamud MD No [facility] 09-10-2022 Because of a physica l, mental, or emotional condition, do you have difficulty doing errands alone such as visiting a physician's office or shopping No 09/10/2022 11:47 AM Eden Mohamud MD [facility] Mental Status Date Assessment Result Facility 04-01-2023 Cognitive function Level Of Cons ciousness Awake;Alert;Appropriate;Fol lows Commands [facility] Work Phone: 09-10-2022 Because of a physica l, mental, or emotional condition, do you have serious difficulty concentrating, remembering, or making decisions No 09/10/2022 11:47 AM Eden Mohamud MD No [facility] Clinical Notes 03-13-2017 to 12-12-2024 Prince Uribe MD - 12/12/2024 8:34 AM EDTTelephone Encounter - Annie Alba RN - 11/14/2024 2:37 PM EDTTelephone Encounter - Annie Alba RN - 11/14/2024 2:37 PM EDTPatient Instructions Note Date & Type Note Facility 12-12-2024 Note HNO ID: [id number] Author: PRINCE URIBE MD Service: ? Author Type: Physician Type: Progress Notes Filed: 12/12/2024 12:13 Note Text: (Elements copied from my note dated June 09, 2024, have been reviewed and updated where appropriate, and all reflect current assessment and medical decision making from today's encounter, December 12, 2024) HISTORY OF PRESENT ILLNESS: Rosalinda Russo is a 53 year old female referred from ER with WBC 380K. Feels well, no fevers, active. Was in ER with chest pains, atypical, work up for this negative. Detailed review of labs Here for follow up, on Gleevec since Apr 14, 2023. Switched to dasatinib October 2023 due to persistent transcript Here for follow up, feels well, reviewed labs in detail, also NCCN guidelines. 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 Continue dasatinib but increase dose to 140 mg daily per [facility]. PCR testing 3 months. Written and verbal health teaching given to patient, patient verbalizes understanding and agrees with treatment plan. PAST MEDICAL HISTORY Diagnosis Date Benign hypertension 09/03/2017 Hypothyroid Rosacea PAST SURGICAL HISTORY Procedure Laterality Date SECTION HX 01/2013 [facility] CHOLECYSTECTOMY 2009 [facility] HERNIA REPAIR HX 11/2013 [facility] LAPAROSCOPY REPAIR INCISIONAL HERNIA REDUCIBLE 07/2013 [facility] FAMILY HISTORY Problem Relation Age of Onset Depression Mother Diabetes Father Cancer Father liver Hypertension Father Blood Clots Sister Hypertension Sister Alcohol abuse Sister Stroke Maternal Grandmother Blindness Maternal Grandmother Hypertension Maternal Grandmother Diabetes Maternal Grandmother Hypertension Maternal Grandfather Diabetes Maternal Grandfather Heart Attack Paternal Grandmother Hypertension Paternal Grandfather Stroke Paternal Grandfather Diabetes Paternal Grandfather Social History Tobacco Use Smoking status: Never Smokeless tobacco: Never Vaping Use Vaping status: Never Used Substance Use Topics Alcohol use: Not Currently Comment: rarely Drug use: No ALLERGIES: ALLERGIES No Known Allergies CURRENT OUTPATIENT MEDICATIONS: dasatinib (SPRYCEL) 100 mg tablet TAKE 1 TABLET BY MOUTH 1 TIME A DAY lisinopril-hydroCHLOROthiazide (ZESTORETIC) 20-12.5 mg per tablet Take 1 tablet by mouth once daily. progesterone micronized (PROMETRIUM) 200 mg capsule Take 1 capsule by mouth daily at bedtime for 7 days. every 2-3 months to induce a period amLODIPine (NORVASC) 2.5 mg tablet Take 1 tablet by mouth once daily. buPROPion XL (WELLBUTRIN XL) 300 mg 24 hr tablet Take 1 tablet by mouth once daily. SYNTHROID 100 mcg tablet Take 1 tablet by mouth once daily. Take on empty stomach Azelaic Acid (FINACEA) 15 % gel Apply 1 application to affected area two times a day. acetaminophen (TYLENOL EXTRA STRENGTH) 500 mg tablet Take 1,000 mg by mouth every 8 hours as needed. Cholecalciferol, Vitamin D3, 2,000 unit cap Take 1 tablet by mouth once daily. REVIEW OF SYSTEMS: GENERAL: No fever, night sweats, weight loss or malaise. All other reviewed and negative other than HPI. PHYSICAL EXAMINATION: VITAL SIGNS: BP 103/67 Pulse 77 Temp (Src) 98.8 (Temporal) Wt 170 lb (77.1kg) SpO2 99% LMP 09/15/2024 GENERAL APPEARANCE: Well appearing, in no acute distress, alert and oriented x3, well-hydrated, well nourished. No splenomegaly I spent a total of 30 minutes on the date of the service which included preparing to see the patient, [id number] patient care, completing clinical documentation, obtaining and/or reviewing separately obtained history, counseling and educating the patient/family/caregiver, ordering medications, tests, or procedures, communicating with other HCPs (not separately reported), independently interpreting results (not separately reported), communicating results to the patient/family/caregiver, and care coordination (not separately reported). Discussion with Dr Ngo Electronically Signed: Prince Uribe MD December 12, 2024 [facility] 12-12-2024 History of Present illness Narrative (Elements copied from my note dated June 09, 2024, have been reviewed and updated where appropriate, and all reflect current assessment and medical decision making from today's encounter, December 12, 2024) HISTORY OF PRESENT ILLNESS: Rosalinda Russo is a 53 year old female referred from ER with WBC 380K. Feels well, no fevers, active. Was in ER with chest pains, atypical, work up for this negative. Detailed review of labs Here for follow up, on Gleevec since Apr 14, 2023. Switched to dasatinib October 2023 due to persistent transcript Here for follow up, feels well, reviewed labs in detail, also NCCN guidelines. 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 Continue dasatinib but increase dose to 140 mg daily per [facility]. PCR testing 3 months. Written and verbal health teaching given to patient, patient verbalizes understanding and agrees with treatment plan. PAST MEDICAL HISTORY Diagnosis Date Benign hypertension 09/03/2017 Hypothyroid Rosacea PAST SURGICAL HISTORY Procedure Laterality Date SECTION HX 01/2013 [facility] CHOLECYSTECTOMY 2009 [facility] HERNIA REPAIR HX 11/2013 Dr Hurtado [facility] LAPAROSCOPY REPAIR INCISIONAL HERNIA REDUCIBLE 07/2013 [facility] FAMILY HISTORY Problem Relation Age of Onset Depression Mother Diabetes Father Cancer Father liver Hypertension Father Blood Clots Sister Hypertension Sister Alcohol abuse Sister Stroke Maternal Grandmother Blindness Maternal Grandmother Hypertension Maternal Grandmother Diabetes Maternal Grandmother Hypertension Maternal Grandfather Diabetes Maternal Grandfather Heart Attack Paternal Grandmother Hypertension Paternal Grandfather Stroke Paternal Grandfather Diabetes Paternal Grandfather Social History Tobacco Use Smoking status: Never Smokeless tobacco: Never Vaping Use Vaping status: Never Used Substance Use Topics Alcohol use: Not Currently Comment: rarely Drug use: No ALLERGIES: ALLERGIES No Known Allergies CURRENT OUTPATIENT MEDICATIONS: dasatinib (SPRYCEL) 100 mg tablet TAKE 1 TABLET BY MOUTH 1 TIME A DAY lisinopril-hydroCHLOROthiazide (ZESTORETIC) 20-12.5 mg per tablet Take 1 tablet by mouth once daily. progesterone micronized (PROMETRIUM) 200 mg capsule Take 1 capsule by mouth daily at bedtime for 7 days. every 2-3 months to induce a period amLODIPine (NORVASC) 2.5 mg tablet Take 1 tablet by mouth once daily. buPROPion XL (WELLBUTRIN XL) 300 mg 24 hr tablet Take 1 tablet by mouth once daily. SYNTHROID 100 mcg tablet Take 1 tablet by mouth once daily. Take on empty stomach Azelaic Acid (FINACEA) 15 % gel Apply 1 application to affected area two times a day. acetaminophen (TYLENOL EXTRA STRENGTH) 500 mg tablet Take 1,000 mg by mouth every 8 hours as needed. Cholecalciferol, Vitamin D3, 2,000 unit cap Take 1 tablet by mouth once daily. REVIEW OF SYSTEMS: GENERAL: No fever, night sweats, weight loss or malaise. All other reviewed and negative other than HPI. PHYSICAL EXAMINATION: VITAL SIGNS: BP 103/67 Pulse 77 Temp (Src) 98.8 (Temporal) Wt 170 lb (77.1kg) SpO2 99% LMP 09/15/2024 GENERAL APPEARANCE: Well appearing, in no acute distress, alert and oriented x3, well-hydrated, well nourished. No splenomegaly I spent a total of 30 minutes on the date of the service which included preparing to see the patient, [id number] patient care, completing clinical documentation, obtaining and/or reviewing separately obtained history, counseling and educating the patient/family/caregiver, ordering medications, tests, or procedures, communicating with other HCPs (not separately reported), independently interpreting results (not separately reported), communicating results to the patient/family/caregiver, and care coordination (not separately reported). Discussion with Dr Ngo Electronically Signed: Prince Uribe MD December 12, 2024 documented in this encounter [facility] 11-29-2024 Note HNO ID: [id number] Author: ?, ?, ? Service: ? Author Type: ? Type: Progress Notes Filed: 12/29/2024 03:03 Note Text: Spoke with patient and she had to schedule some appointments for her mother but she will call back to schedule when she is ready. [facility] 11-28-2024 Note Patient Outreach ( WSTR) ROSALINDA RUSSO ([id number]) 1970 F Date Time Provider Department 11/28/24 EDEN PETERSEN ASWSTR During your visit today, we recorded the following information about you: Janice Gunn, LOAN 11/28/2024 11:51 AM Signed COLONOSCOPY BOWEL PREPARATION INSTRUCTIONS MiraLAX? Your doctor has scheduled you for a colonoscopy. To have a successful colonoscopy, you must have a clean colon, that is empty. A clean colon allows your doctor to see the entire colon AND diagnose issues like polyps or cancer. For doctors, a clean colon is like driving on a kd day; a dirty colon like driving in a storm. It is very important that you follow these instructions exactly, or your colonoscopy may not be as effective, could be canceled, and you may need to do the bowel prep and colonoscopy again. TRANSPORTATION REQUIREMENTS You are receiving IV sedation. For your safety, a responsible adult escort must accompany you to and from your procedure: Your adult escort MUST be present with you at check-in for your colonoscopy. Your adult escort MUST remain in the endoscopy area until you are discharged. Your adult escort MUST transport you home once you are discharged. You are NOT allowed to operate any form of transportation (i.e. drive a car, bicycle, etc) or leave the Endoscopy Center ALONE. It is not safe to do so. If you cannot meet these requirements, your procedure will be canceled. MEDICATION REQUIREMENTS For your safety, certain medications will need to be stopped or adjusted before you can have your procedure: BLOOD THINNERS: If you take blood thinners, such as Coumadin (warfarin), Plavix (clopidogrel), Ticlid (ticlopidine hydrochloride), Agrylin (anagrelide), Xarelto (Rivaroxaban), Pradaxa (Dabigatran), Eliquis (Apixaban), or Effient (Prasugrel), contact the physician who is prescribing these medications at least 2 weeks prior to your procedure to discuss any necessary adjustments. DIABETES: If you take medications for diabetes, your dosage may need to be adjusted. If you are being treated for diabetes with insulin, diabetic pills, or other injectable medications do not take your REGULAR dose after midnight on the day of your procedure. If you are taking any other types of insulin such as Lantus, Humalog, NPH (long-acting insulin), or 70/30 insulin, take half your normal dose the day before your procedure. DIABETES/WEIGHT MANAGEMENT: If you take medications for weight-loss, your dosage may need to be adjusted Contact the doctor who prescribes this medication for further instructions. If you take medications for weight-loss like semaglutide (Ozempic, Wegovy, Rybelsus), dulaglutide (Trulicity), liraglutide (Victoza, Saxenda), exenatide (Byetta, Bydureon), or lixisenatide (Adylyxin), stop your medication 1 week prior to your procedure. If you take medications like canagliflozin (Invokana), dapagliflozin (Farxiga, Forxiga), empagliflozin (Jardiance), stop your medication 3 days prior to your procedure. If you take ertugliflozin (Steglatro) stop your medication 4 days prior to your procedure. IRON: If you take iron pills, STOP them 1 week BEFORE your procedure, may resume after. OTHER MEDS: May take all other medications (including aspirin, antibiotics, water pills / diuretics like Lasix or Metolozone, blood pressure meds, etc.) at their usual scheduled time with water. DIET REQUIREMENTS The day before your colonoscopy, you may have a clear liquid diet (see below). The day of your colonoscopy, you may continue a clear liquid diet until 3 hours before your colonoscopy. Within 3 hours of your colonoscopy, take only any medications (as above) with a sip of water. Clear Liquid Diet Broth (chicken, beef or vegetable broth or bullion. Just the broth, no solids). Water Coffee or Tea (NO milk or creamer), but sugar and sugar substitutes are allowed. Clear liquids including clear, yellow, green, blue (NO red, NO orange, NO purple) Sodas / soft drinks; Gatorade or other sports drinks Fruit juice (strained; no-pulp); Gonzalez-Aid or flavored drinks Plain Jell-O or other gelatins Popsicles or hard candy Bowel prep can work differently from person to person. ? Some people's bowels move slowly and they may need different instructions. Please see your doctor in office or virtually for personalized bowel prep instructions if you have: BOWEL PREPARATION (MIRALAX/GATORADE) Split Dosing Bowel Prep: This means drinking your bowel prep in two doses. Split dosing helps clean your colon better and makes it less likely that your procedure will be canceled. You will need to purchase the following (no prescriptions are needed): 64 ounces Gatorade, Propel, Crystal Lite or other noncarbonated clear liquid sports drink (NOT red, orange, or purple). Diabetic patients buy sugar-fr (more content not included)... [facility] 11-14-2024 Telephone encounter Note PSS: patient due labs end of November and would like to schedule follow up with Dr. Uribe 1 week later. She is wanting to schedule OV first. Can you assist please. Nadai Alba RN [facility] Work Phone: 11-14-2024 Miscellaneous Notes PSS: patient due labs end of November and would like to schedule follow up with Dr. Uribe 1 week later. She is wanting to schedule OV first. Can you assist please. Nadia Alba RN documented in this encounter [facility] 10-28-2024 Telephone encounter Note Prescription Refill Information The patient has been identified by name and date of : Yes Caregiver verified no other encounters exist for this prescription request: Yes Caregiver confirmed with patient/requestor that no other refills are due, in the near future, with this provider at this time: Yes The last office visit in the department: 09/13/2024 Does the patient have a future office visit with this provider/department: No will reach out to PSS to have pt. schedule Requested Prescriptions Pending Prescriptions Disp Refills dasatinib (SPRYCEL) 100 mg tablet [Pharmacy Med Name: DASATINIB 100MG] 5 Sig: TAKE 1 TABLET BY MOUTH 1 TIME A DAY Gilda Sparks LPN October 28, 2024 8:[address] [facility] 10-28-2024 Miscellaneous Notes Prescription Refill Information The patient has been identified by name and date of : Yes Caregiver verified no other encounters exist for this prescription request: Yes Caregiver confirmed with patient/requestor that no other refills are due, in the near future, with this provider at this time: Yes The last office visit in the department: 09/13/2024 Does the patient have a future office visit with this provider/department: No will reach out to PSS to have pt. schedule Requested Prescriptions Pending Prescriptions Disp Refills dasatinib (SPRYCEL) 100 mg tablet [Pharmacy Med Name: DASATINIB 100MG] 5 Sig: TAKE 1 TABLET BY MOUTH 1 TIME A DAY Gilda Sparks LPN October 28, 2024 8:05 AM documented in this encounter [facility] 10-14-2024 Telephone encounter Note Prescription Refill Information The patient has been identified by name and date of : Yes Caregiver verified no other encounters exist for this prescription request: Yes Caregiver confirmed with patient/requestor that no other refills are due, in the near future, with this provider at this time: Yes The last office visit in the department: 09/23/24 Does the patient have a future office visit with this provider/department: Yes 08/27/24 Requested Prescriptions Pending Prescriptions Disp Refills lisinopril-hydroCHLOROthiazide (ZESTORETIC) 20-12.5 mg per tablet 90 tablet 3 Sig: Take 1 tablet by mouth once daily. Anyi Crowe LPN October 14, 2024 9:[address] [facility] 10-14-2024 Miscellaneous Notes Prescription Refill Information The patient has been identified by name and date of : Yes Caregiver verified no other encounters exist for this prescription request: Yes Caregiver confirmed with patient/requestor that no other refills are due, in the near future, with this provider at this time: Yes The last office visit in the department: 09/23/24 Does the patient have a future office visit with this provider/department: Yes 08/27/24 Requested Prescriptions Pending Prescriptions Disp Refills lisinopril-hydroCHLOROthiazide (ZESTORETIC) 20-12.5 mg per tablet 90 tablet 3 Sig: Take 1 tablet by mouth once daily. Anyi Crowe LPN October 14, 2024 9:24 AM documented in this encounter [facility] 10-02-2024 Note HNO ID: [id number] Author: BRAD LEONE MD Service: ? Author Type: Physician Type: Progress Notes Filed: 10/02/2024 00:26 Note Text: The patient presents for requested ultrasound. Full report available in the Imaging tab in [employer]. Brad Leone MD [facility] 10-02-2024 History of Present illness Narrative The patient presents for requested ultrasound. Full report available in the Imaging tab in [employer]. Brad Leone MD documented in this encounter [facility] 09-29-2024 Instructions Jessica Lo MA - 09/29/2024 9:42 AM EST YOUR RECOVERY After your biopsy you may have: Vaginal bleeding (less than a normal menstrual period) Mild cramping Do NOT put anything in the vagina for 1 week after your endometrial biopsy. This includes: tampons douches and refraining from having sexual intercourse If you have any discomfort, you may take an over the counter pain medication (motrin, advil, ibuprofen, tylenol, etc). If this does not relieve your discomfort, contact the office. It is okay to wear a sanitary pad until the discharge and spotting stops. RISKS Although problems seldom occur with endometrial biopsies, there can be some complications. You may feel faint during and shortly after the procedure as well as have some bleeding after the procedure. There is also a risk of infection after the procedure. These complications are rare and can be easily treated. You should contact you doctor is you have any of the following: Heavy bleeding (more than your normal period) Bleeding with clots Severe abdominal pain Fever (more than 100.4F) Foul smelling vaginal discharge RESULTS We will have the results of your biopsy in 1-2 weeks. If you do not hear the results of your biopsy after 2 weeks, please contact the office for the results. If you have any additional questions or concerns please do not hesitate to contact the office. documented in this encounter [facility] 09-29-2024 Note HNO ID: [id number] Author: MARGA CROWE MD Service: ? Author Type: Physician Type: Progress Notes Filed: 09/29/2024 11:32 Note Text: Rosalinda is a 54 year old Female who presents today for an endometrial biopsy/hysteroscopy for abnormal uterine bleeding, thickened endometrium. Age: [age] year old LMP: Patient's last menstrual period was 09/15/2024 (approximate). test: not done - can't void, no intercourse since last menses. Did have bleed after the progesterone but not heavy VS: BP 112/82 Wt 169 lb (76.7kg) LMP 09/15/2024 UNIVERSAL PROTOCOL / SAFETY CHECKLIST Procedure to be Performed: Hysteroscopy w/ EMB Sign In: A Moment of CARE was completed. Personnel directly involved with the procedure wore the appropriate PPE (Personal Protective Equipment). Patient/Surrogate Stated/Verified: PATIENT VERIFIED(optional for EMERGENT procedures): Patient name, Date of , Relevant allergies, and The intended procedure Time Out Communication: Intended patient and procedure match the source documents. Consent documented and matches the intended procedure. Relevant labs, photos, and/or imaging studies have been reviewed. No implant(s) inserted. Sign Out: SIGN OUT (optional for EMERGENT procedures): All specimen containers correctly labeled. All instruments, equipment, possible retained foreign bodies accounted for. Post-procedure follow-up management communicated and Plan of Care Visit completed when applicable. Marga Crowe MD OBJECTIVE: Cervix cleaned with betadine. A single tooth tenaculum was used to grasp cervix. Under sterile conditions, using 20 mL normal saline as distention, ENDOSEE hysteroscopy performed without incident. Endometrial lining is normal. Tubal ostia visualized and normal. No focal abnormalities noted. EMB done and 3 passes made, specimen labeled. PROCEDURE SUMMARY: Patient tolerated procedure well. ASSESMENT: Irregular Bleeding and Increased endometrial thickness with no lesions on hysteroscopy. PLAN: Follow up endometrial biopsy results. Cyclic provera q 12 weeks until no withdrawal bleed or if bothersome symptoms return and consider in OR hysteroscopy DANTX Marga Crowe MD [facility] 09-29-2024 History of Present illness Narrative Rosalinda is a 54 year old Female who presents today for an endometrial biopsy/hysteroscopy for abnormal uterine bleeding, thickened endometrium. Age: [age] year old LMP: Patient's last menstrual period was 09/15/2024 (approximate). test: not done - can't void, no intercourse since last menses. Did have bleed after the progesterone but not heavy VS: BP 112/82 Wt 169 lb (76.7kg) LMP 09/15/2024 UNIVERSAL PROTOCOL / SAFETY CHECKLIST Procedure to be Performed: Hysteroscopy w/ EMB Sign In: A Moment of CARE was completed. Personnel directly involved with the procedure wore the appropriate PPE (Personal Protective Equipment). Patient/Surrogate Stated/Verified: PATIENT VERIFIED(optional for EMERGENT procedures): Patient name, Date of , Relevant allergies, and The intended procedure Time Out Communication: Intended patient and procedure match the source documents. Consent documented and matches the intended procedure. Relevant labs, photos, and/or imaging studies have been reviewed. No implant(s) inserted. Sign Out: SIGN OUT (optional for EMERGENT procedures): All specimen containers correctly labeled. All instruments, equipment, possible retained foreign bodies accounted for. Post-procedure follow-up management communicated and Plan of Care Visit completed when applicable. Marga Crowe MD OBJECTIVE: Cervix cleaned with betadine. A single tooth tenaculum was used to grasp cervix. Under sterile conditions, using 20 mL normal saline as distention, ENDOSEE hysteroscopy performed without incident. Endometrial lining is normal. Tubal ostia visualized and normal. No focal abnormalities noted. EMB done and 3 passes made, specimen labeled. PROCEDURE SUMMARY: Patient tolerated procedure well. ASSESMENT: Irregular Bleeding and Increased endometrial thickness with no lesions on hysteroscopy. PLAN: Follow up endometrial biopsy results. Cyclic provera q 12 weeks until no withdrawal bleed or if bothersome symptoms return and consider in OR hysteroscopy D&C Marga Crowe MD documented in this encounter [facility] 09-27-2024 Telephone encounter Note Patient has been identified by name and date of : Yes Patient phones for refill(s): Requested Prescriptions Pending Prescriptions Disp Refills amLODIPine (NORVASC) 2.5 mg tablet 90 tablet 3 Sig: Take 1 tablet by mouth once daily. Date of last office visit in primary care: 09/23/2024 Date of next office visit in primary care: 03/27/2025 Please advise. Thank you. Ember Fuller LPN. [facility] 09-27-2024 Miscellaneous Notes Patient has been identified by name and date of : Yes Patient phones for refill(s): Requested Prescriptions Pending Prescriptions Disp Refills amLODIPine (NORVASC) 2.5 mg tablet 90 tablet 3 Sig: Take 1 tablet by mouth once daily. Date of last office visit in primary care: 09/23/2024 Date of next office visit in primary care: 03/27/2025 Please advise. Thank you. Ember Fuller LPN. documented in this encounter [facility] 09-23-2024 Note HNO ID: [id number] Author: EDEN PETERSEN MD Service: ? Author Type: Physician Type: Progress Notes Filed: 09/23/2024 12:48 Note Text: Reason for Visit Patient presents with: F/U 3 Month Rosalinda Russo is a 52 year old female who presents here today for Above Complaints.. Health Maintenance HEPATITIS B(1 of 3 - 3-dose series) MAMMOGRAM SHINGRIX VACCINE(1 of 2) INFLUENZA(1) LIPID SCREEN HPI Jessica is a very pleasant 54-year-old with a past medical history of hypertension, anxiety depression and hypothyroidism. Recently she was diagnosed with Chronic myeloid leukemia. Here to talk about her periods cessation and few other issues She has a pt sitter in [place], sees him yearly. Her periods were very regular, had no problems till recently when her. Stopped around 7 months ago and a couple months back she had spotting that lasted for 3 weeks. Was advised to get ultrasound of the uterus. Her FSH that was done in our system a few months ago was not in the postmenopausal Levels. She did have repeat test in the past week and her levels were definitely towards the postmenopausal level. They were higher than the upper range of the luteal follicular and ovulatory phases. They were reaching towards the postmenopausal phase. Last year she did have some irregularities. She had her period in August 2022 she had her regular periods and on october 25, she had one occurrence, of spotting the blood was dark and dried. Her mother had surgical menopause. She has not been gaining weight but rather losing weight, she has lost around 50 pounds, intentionally in 2 years, cut out her soda, does intermittent fasting. On retrospect we think that this weight loss is probably partially from the CML in addition to her diet and exercise. She denies having nausea, bloating, easy satiety, abdominal pain, or other pt sitter symptoms She does have some hot flashes, no genitourinary syndrome. On wellbutrin so she has not noticed any fatigue or depression that is over her baseline. HTN: Compliant with medications. Denies any chest pain, palpitations, or edema. No SOB. Doesn't check BP at home generally. Careful with diet to avoid salt, trying to eat more fruits and vegetables, exercises regularly. 09/23/24: followed up for spotting with DIRECTOR OF PSYCHOLOGY who performed US and will have a endometrial biopsy. Had apt with onchology who confirmed continued remission , her numbers were a little on the higher side , cont the dasatinib. She has been to see Physical Therapy who have worked on her back for DDD and scoliosis, it has helped doing regular exercises. Iron, vit d and vit b12 is in normal range. She is on wellbutrin for anxiety depression but still scoring high. She is doing well on it, not feeling as drowning under the water. She does exercise 30 mins 4 times week. No problem-specific Assessment AND Plan notes found for this encounter. PAST MEDICAL HISTORY Diagnosis Date Benign hypertension 09/03/2017 Hypothyroid Rosacea PAST SURGICAL HISTORY Procedure Later[facility] Date [facility]/2013 Dr Hurtado - [facility] LAPAROSCOPY REPAIR INCISIONAL HERNIA REDUCIBLE 07/2013 [facility] [place] FAMILY HISTORY Problem Relation Age of Onset Depression Mother Diabetes Father Cancer Father liver Hypertension Father Blood Clots Sister Hypertension Sister Alcohol abuse Sister Stroke Maternal Grandmother Blindness Maternal Grandmother Hypertension Maternal Grandmother Diabetes Maternal Grandmother Hypertension Maternal Grandfather Diabetes Maternal Grandfather Heart Attack Paternal Grandmother Hypertension Paternal Grandfather Stroke Paternal Grandfather Diabetes Paternal Grandfather Social History Tobacco Use Smoking status: Never Smokeless tobacco: Never Vaping Use Vaping status: Never Used Substance Use Topics Alcohol use: Not Currently Comment: rarely Drug use: No Past medical history, appointments, medications, allergies reviewed. Pertinent Lab/Diagnostic Studies are reviewed and discussed today Current Outpatient Medications: buPROPion XL (WELLBUTRIN XL) 300 mg 24 hr tablet SYNTHROID 100 mcg tablet Azelaic Acid (FINACEA) 15 % gel dasatinib (SPRYCEL) 100 mg tablet amLODIPine (NORVASC) 2.5 mg tablet lisinopril-hydroCHLOROthiazide (ZESTORETIC) 20-12.5 mg per tablet acetaminophen (TYLENOL EXTRA STRENGTH) 500 mg tablet Cholecalciferol, Vitamin D3, 2,000 unit cap progesterone micronized (PROMETRIUM) 200 mg capsule Review of Systems CONSTITUTIONAL: No fevers, chills night sweats, unintended weight loss CARDIOVASCULAR: No chest pain, dyspnea, palpitations, orthopnea, PND, ankle edema. PULM: No dyspnea, unexplained cough. GI: No dysphagia/odynophagia, problematic reflux, constipation, diarrhea, changes in stool habits, hem (more content not included)... [facility] 09-23-2024 History of Present illness Narrative Reason for Visit Patient presents with: F/U 3 Month Rosalinda Russo is a 52 year old female who presents here today for Above Complaints.. Health Maintenance HEPATITIS B(1 of 3 - 3-dose series) MAMMOGRAM SHINGRIX VACCINE(1 of 2) INFLUENZA(1) LIPID SCREEN HPI Jessica is a very pleasant 54-year-old with a past medical history of hypertension, anxiety depression and hypothyroidism. Recently she was diagnosed with Chronic myeloid leukemia. Here to talk about her periods cessation and few other issues She has a pt sitter in [place], sees him yearly. Her periods were very regular, had no problems till recently when her. Stopped around 7 months ago and a couple months back she had spotting that lasted for 3 weeks. Was advised to get ultrasound of the uterus. Her FSH that was done in our system a few months ago was not in the postmenopausal Levels. She did have repeat test in the past week and her levels were definitely towards the postmenopausal level. They were higher than the upper range of the luteal follicular and ovulatory phases. They were reaching towards the postmenopausal phase. Last year she did have some irregularities. She had her period in August 2022 she had her regular periods and on october 25, she had one occurrence, of spotting the blood was dark and dried. Her mother had surgical menopause. She has not been gaining weight but rather losing weight, she has lost around 50 pounds, intentionally in 2 years, cut out her soda, does intermittent fasting. On retrospect we think that this weight loss is probably partially from the CML in addition to her diet and exercise. She denies having nausea, bloating, easy satiety, abdominal pain, or other pt sitter symptoms She does have some hot flashes, no genitourinary syndrome. On wellbutrin so she has not noticed any fatigue or depression that is over her baseline. HTN: Compliant with medications. Denies any chest pain, palpitations, or edema. No SOB. Doesn't check BP at home generally. Careful with diet to avoid salt, trying to eat more fruits and vegetables, exercises regularly. 09/23/24: followed up for spotting with DIRECTOR OF PSYCHOLOGY who performed US and will have a endometrial biopsy. Had apt with onchology who confirmed continued remission , her numbers were a little on the higher side , cont the dasatinib. She has been to see Physical Therapy who have worked on her back for DDD and scoliosis, it has helped doing regular exercises. Iron, vit d and vit b12 is in normal range. She is on wellbutrin for anxiety depression but still scoring high. She is doing well on it, not feeling as drowning under the water. She does exercise 30 mins 4 times week. No problem-specific Assessment & Plan notes found for this encounter. PAST MEDICAL HISTORY Diagnosis Date Benign hypertension 09/03/2017 Hypothyroid Rosacea PAST SURGICAL HISTORY Procedure Laterality Date SECTION HX 01/2013 [facility] CHOLECYSTECTOMY 2009 [facility] HERNIA REPAIR HX 11/2013 Dr [facility] LAPAROSCOPY REPAIR INCISIONAL [facility] Problem Relation Age of Onset Depression Mother Diabetes Father Cancer Father liver Hypertension Father Blood Clots Sister Hypertension Sister Alcohol abuse Sister Stroke Maternal Grandmother Blindness Maternal Grandmother Hypertension Maternal Grandmother Diabetes Maternal Grandmother Hypertension Maternal Grandfather Diabetes Maternal Grandfather Heart Attack Paternal Grandmother Hypertension Paternal Grandfather Stroke Paternal Grandfather Diabetes Paternal Grandfather Social History Tobacco Use Smoking status: Never Smokeless tobacco: Never Vaping Use Vaping status: Never Used Substance Use Topics Alcohol use: Not Currently Comment: rarely Drug use: No Past medical history, appointments, medications, allergies reviewed. Pertinent Lab/Diagnostic Studies are reviewed and discussed today Current Outpatient Medications: buPROPion XL (WELLBUTRIN XL) 300 mg 24 hr tablet SYNTHROID 100 mcg tablet Azelaic Acid (FINACEA) 15 % gel dasatinib (SPRYCEL) 100 mg tablet amLODIPine (NORVASC) 2.5 mg tablet lisinopril-hydroCHLOROthiazide (ZESTORETIC) 20-12.5 mg per tablet acetaminophen (TYLENOL EXTRA STRENGTH) 500 mg tablet Cholecalciferol, Vitamin D3, 2,000 unit cap progesterone micronized (PROMETRIUM) 200 mg capsule Review of Systems CONSTITUTIONAL: No fevers, chills night sweats, unintended weight loss CARDIOVASCULAR: No chest pain, dyspnea, palpitations, orthopnea, PND, ankle edema. PULM: No dyspnea, unexplained cough. GI: No dysphagia/odynophagia, problematic reflux, constipation, diarrhea, changes in stool habits, hematochezia, melena. : No new urinary complaints, including dysuria, gross hematuria or pyuria. NEURO: No new balance problems, peripheral weakness/paresthesias or numbness of concern. Physical Exam BP 109/71 Pulse 85 Resp 16 Wt 75.7 kg (166 lb 12.8 oz) LMP 10/14/2023 (Approximate) SpO2 99% BMI 29.19 kg/m General appearance: Well appearing, alert, in no acute distress, well nourished. Skin: Skin color, texture, turgor normal, no suspicious rashes or lesions Head: Normocephalic, no masses, lesions, tenderness or abnormalities Eyes: Anicteric sclera. Pupils are equally round and reactive to light. Extraocular movements are intact. Lungs: Lungs clear to auscultation. No wheezing, rhonchi, rales Heart: RRR without murmur, gallop, or rubs. Abdomen: soft, nondistended, nontender, no hepatosplenomegaly or masses Spine: She has a hump on the left side, when she bends over definitely it appears to have some levoscoliosis.. ASSESSMENT/PLAN: 1. Benign hypertension - ICD9: 401.1, ICD10: I10 (primary diagnosis) - well controlled, briefly discussed cutting down medication as blood pressure is on lower end but we will continue for now, till she loses some weight - Recommend home blood pressure monitoring, to bring results to next visit - Encouraged sodium restriction, DASH or Mediterranean diet - Recommend regular aerobic exercise 2. Screening for depression - ICD9: V79.0, ICD10: Z13.31 - DEPRESSION SCREENING 3. Encounter for screening examination for other mental health and behavioral disorders - ICD9: V79.8, ICD10: Z13.39 - ANXIETY SCREENING 4. Acquired hypothyroidism - ICD9: 244.9, ICD10: E03.9 - Instructed patient on importance of taking on an empty stomach either first thing in the morning or at bedtime. 5. Degeneration of intervertebral disc of lumbar region, unspecified whether pain present - ICD9: 722.52, ICD10: M51.369 Physical Therapy is helping her some 6. CML (chronic myelocytic leukemia) (HCC) - ICD9: 205.10, ICD10: C92.10 In remission. Eden Petersen MD documented in this encounter [facility] 09-13-2024 Telephone encounter Note Darion Tellez, I heard back from Dr Ngo our CML expert at [facility], he agrees to continue dasatinib at current dose, and recheck PCR in 3 months. We can adjust things then if needed. Dr Perez [facility] 09-13-2024 Miscellaneous Notes Darion Tellez, I heard back from Dr Ngo our CML expert at [facility], he agrees to continue dasatinib at current dose, and recheck PCR in 3 months. We can adjust things then if needed. Dr Perez documented in this encounter [facility] 09-13-2024 Note HNO ID: [id number] Author: PRINCE URIBE MD Service: ? Author Type: Physician Type: Progress Notes Filed: 09/13/2024 11:10 Note Text: (Elements copied from my note dated June 09, 2024, have been reviewed and updated where appropriate, and all reflect current assessment and medical decision making from today's encounter, September 13, 2024) HISTORY OF PRESENT ILLNESS: Rosalinda Russo is a 53 year old female referred from ER with WBC 380K. Feels well, no fevers, active. Was in ER with chest pains, atypical, work up for this negative. Detailed review of labs Here for follow up, on Gleevec since Apr 14, 2023. Switched to dasatinib October 2023 due to persistent transcript Here for follow up, feels well, reviewed labs in detail, also NCCN guidelines. Reviewed September 2024 labs with [facility] CLINICAL IMPRESSION: CML chronic phase Currently in hematologic remission PCR remains positive, stable, but we see adequate response thus far to dasatinib RECOMMENDATION/PLAN: 1. Continue dasatinib. PCR testing 3 months per main campus. Written and verbal health teaching given to patient, patient verbalizes understanding and agrees with treatment plan. PAST MEDICAL HISTORY Diagnosis Date Benign hypertension 09/03/2017 Hypothyroid Rosacea PAST SURGICAL HISTORY Procedure Laterality Date SECTION HX 01/2013 [facility] CHOLECYSTECTOMY 2009 [facility] HERNIA REPAIR HX 11/2013 Dr Hurtado [facility] LAPAROSCOPY REPAIR INCISIONAL HERNIA REDUCIBLE 07/2013 [facility] FAMILY HISTORY Problem Relation Age of Onset Depression Mother Diabetes Father Cancer Father liver Hypertension Father Blood Clots Sister Hypertension Sister Alcohol abuse Sister Stroke Maternal Grandmother Blindness Maternal Grandmother Hypertension Maternal Grandmother Diabetes Maternal Grandmother Hypertension Maternal Grandfather Diabetes Maternal Grandfather Heart Attack Paternal Grandmother Hypertension Paternal Grandfather Stroke Paternal Grandfather Diabetes Paternal Grandfather Social History Tobacco Use Smoking status: Never Smokeless tobacco: Never Vaping Use Vaping status: Never Used Substance Use Topics Alcohol use: Not Currently Comment: rarely Drug use: No ALLERGIES: ALLERGIES No Known Allergies CURRENT OUTPATIENT MEDICATIONS: buPROPion XL (WELLBUTRIN XL) 300 mg 24 hr tablet Take 1 tablet by mouth once daily. progesterone micronized (PROMETRIUM) 200 mg capsule Take 1 capsule by mouth daily at bedtime for 7 days. SYNTHROID 100 mcg tablet Take 1 tablet by mouth once daily. Take on empty stomach Azelaic Acid (FINACEA) 15 % gel Apply 1 application to affected area two times a day. dasatinib (SPRYCEL) 100 mg tablet Take 1 tablet (100 mg) by mouth once daily. amLODIPine (NORVASC) 2.5 mg tablet Take 1 tablet by mouth once daily. lisinopril-hydroCHLOROthiazide (ZESTORETIC) 20-12.5 mg per tablet Take 1 tablet by mouth once daily. acetaminophen (TYLENOL EXTRA STRENGTH) 500 mg tablet Take 1,000 mg by mouth every 8 hours as needed. Cholecalciferol, Vitamin D3, 2,000 unit cap Take 1 tablet by mouth once daily. REVIEW OF SYSTEMS: GENERAL: No fever, night sweats, weight loss or malaise. All other reviewed and negative other than HPI. PHYSICAL EXAMINATION: VITAL SIGNS: [facility] 10/14/2023 GENERAL APPEARANCE: Well appearing, in no acute distress, alert and oriented x3, well-hydrated, well nourished. I spent a total of 30 minutes on the date of the service which included preparing to see the patient, [id number] patient care, completing clinical documentation, obtaining and/or reviewing separately obtained history, counseling and educating the patient/family/caregiver, ordering medications, tests, or procedures, communicating with other HCPs (not separately reported), independently interpreting results (not separately reported), communicating results to the patient/family/caregiver, and care coordination (not separately reported). And discussion with main campus CML team. Electronically Signed: Prince Uribe MD September 13, 2024 [facility] 09-13-2024 History of Present illness Narrative (Elements copied from my note dated June 09, 2024, have been reviewed and updated where appropriate, and all reflect current assessment and medical decision making from today's encounter, September 13, 2024) HISTORY OF PRESENT ILLNESS: Rosalinda Russo is a 53 year old female referred from ER with WBC 380K. Feels well, no fevers, active. Was in ER with chest pains, atypical, work up for this negative. Detailed review of labs Here for follow up, on Gleevec since Apr 14, 2023. Switched to dasatinib October 2023 due to persistent transcript Here for follow up, feels well, reviewed labs in detail, also NCCN guidelines. 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 Continue dasatinib. PCR testing 3 months per [facility]. Written and verbal health teaching given to patient, patient verbalizes understanding and agrees with treatment plan. PAST MEDICAL HISTORY Diagnosis Date Benign hypertension 09/03/2017 Hypothyroid Rosacea PAST SURGICAL HISTORY Procedure Laterality Date SECTION HX 01/2013 [facility] CHOLECYSTECTOMY 2009 [facility] HERNIA REPAIR HX 11/2013 [facility] LAPAROSCOPY REPAIR INCISIONAL HERNIA REDUCIBLE 07/2013 [facility] FAMILY HISTORY Problem Relation Age of Onset Depression Mother Diabetes Father Cancer Father liver Hypertension Father Blood Clots Sister Hypertension Sister Alcohol abuse Sister Stroke Maternal Grandmother Blindness Maternal Grandmother Hypertension Maternal Grandmother Diabetes Maternal Grandmother Hypertension Maternal Grandfather Diabetes Maternal Grandfather Heart Attack Paternal Grandmother Hypertension Paternal Grandfather Stroke Paternal Grandfather Diabetes Paternal Grandfather Social History Tobacco Use Smoking status: Never Smokeless tobacco: Never Vaping Use Vaping status: Never Used Substance Use Topics Alcohol use: Not Currently Comment: rarely Drug use: No ALLERGIES: ALLERGIES No Known Allergies CURRENT OUTPATIENT MEDICATIONS: buPROPion XL (WELLBUTRIN XL) 300 mg 24 hr tablet Take 1 tablet by mouth once daily. progesterone micronized (PROMETRIUM) 200 mg capsule Take 1 capsule by mouth daily at bedtime for 7 days. SYNTHROID 100 mcg tablet Take 1 tablet by mouth once daily. Take on empty stomach Azelaic Acid (FINACEA) 15 % gel Apply 1 application to affected area two times a day. dasatinib (SPRYCEL) 100 mg tablet Take 1 tablet (100 mg) by mouth once daily. amLODIPine (NORVASC) 2.5 mg tablet Take 1 tablet by mouth once daily. lisinopril-hydroCHLOROthiazide (ZESTORETIC) 20-12.5 mg per tablet Take 1 tablet by mouth once daily. acetaminophen (TYLENOL EXTRA STRENGTH) 500 mg tablet Take 1,000 mg by mouth every 8 hours as needed. Cholecalciferol, Vitamin D3, 2,000 unit cap Take 1 tablet by mouth once daily. REVIEW OF SYSTEMS: GENERAL: No fever, night sweats, weight loss or malaise. All other reviewed and negative other than HPI. PHYSICAL EXAMINATION: VITAL SIGNS: [facility] 10/14/2023 GENERAL APPEARANCE: Well appearing, in no acute distress, alert and oriented x3, well-hydrated, well nourished. I spent a total of 30 minutes on the date of the service which included preparing to see the patient, [id number] patient care, completing clinical documentation, obtaining and/or reviewing separately obtained history, counseling and educating the patient/family/caregiver, ordering medications, tests, or procedures, communicating with other HCPs (not separately reported), independently interpreting results (not separately reported), communicating results to the patient/family/caregiver, and care coordination (not separately reported). And discussion with [facility] CML team. Electronically Signed: Prince Uribe MD September 13, 2024 documented in this encounter [facility] 09-06-2024 Note HNO ID: [id number] Author: NEGRO DAWSON PT Service: ? Author Type: Physical Therapist Type: Progress Notes Filed: 09/06/2024 17:00 Note Text: Episode Visit Count: 2 Therapist That Will Accept/Oversee The Plan Of Care: Negro Dawson Start of Care Date: 07/28/24 Onset Date: 08/10/23 REHABILITATION AND SPORTS THERAPY PHYSICAL THERAPY DISCONTINUANCE OF CARE PLAN OF CARE UPDATE: Assessment: Rosalinda Russo is discontinued from Physical Therapy services due to goal achievement.. Patient was seen for 2 visits from Start of Care Date: 07/28/24 to 09/06/2024 and treatment included: Therapeutic exercise. Goals updated on 09/06/2024. Goals for Episode of Care: established 07/28/24 Independent in home exercises. Met Maintain proper sitting posture throughout session. Met Patient will increase strength of trunk/core to 5/5 to allow for improve ability to complete ADLs. Improved SUBJECTIVE: Patient with minimal to no change since first being seen, but also no development of new symptoms. Exercises make her feel less stiff and like she moves better. Still seems to be tripping on things on L side. Pain: Pain Pain Level: 0 PROMIS Scales 09/06/2024 07/28/2024 Higher is Better Phys Func - T Score 47 (within normal limits) 47 (within normal limits) Phys Func - Percentile 38 38 Self-Eff Symptom - T Score 48 (Average) 46 (Average) Self-Eff Symptom - Percentile 42 34 07/28/2024 Lower is Better Pain Interference - T Score 53 (within normal limits) Pain Interference - Percentile 38 T-scores: mean of general population = 50. 5 points is clinically meaningfully difference Percentiles provide an indication of how the patient's score ranks in relation to the general population. Higher percentile rankings indicate better function/quality of life. 50th percentile is the average of the general population and indicates half of respondents had a worse score. OBJECTIVE MEASURES WITH LEVEL OF FUNCTION: Lumbar Spine AROM Lumbar Flexion: Normal Lumbar Extension: Normal Lumbar R Side-Bend: Normal Lumbar L Side-Bend: Normal Lumbar R Rotation: Normal Lumbar L Rotation: Normal LE Strength Trunk Strength: 4+/5 TREATMENT: Therapeutic Exercise: 1: *Primal push up and variations 3x10 each 2: *BTB pallof press 3x10/side 3: *BTB stir the pot 3x10/side cw/ccw 4: * bugs 3x10/side 5: reviewed HEP and discussed progression of exercises at length 6: Objective measures obtained Skilled Intervention: Patient was educated in proper exercise technique and purpose for exercises. Skilled judgment was used in selection of appropriate interventions. Provided written instruction for home exercise program to facilitate proper performance and compliance. Correct performance of therapeutic exercises was facilitated with verbal, visual, and tactile cuing. Billing Therapeutic Exercise Treatment Minutes: 40 Skilled Treatment Time Minutes (timed and untimed codes): 40 Total Session Time (minutes): 40 Session Start Time : 1315 Session Stop Time : 1355 Negro Dawson PT [facility] 09-06-2024 History of Present illness Narrative Episode Visit Count: 2 Therapist That Will Accept/Oversee The Plan Of Care: Negro Dawson Start of Care Date: 07/28/24 Onset Date: 08/10/23 REHABILITATION AND SPORTS THERAPY PHYSICAL THERAPY DISCONTINUANCE OF CARE PLAN OF CARE UPDATE: Assessment: Rosalinda Karan is discontinued from Physical Therapy services due to goal achievement.. Patient was seen for 2 visits from Start of Care Date: 07/28/24 to 09/06/2024 and treatment included: Therapeutic exercise. Goals updated on 09/06/2024. Goals for Episode of Care: established 07/28/24 Independent in home exercises. Met Maintain proper sitting posture throughout session. Met Patient will increase strength of trunk/core to 5/5 to allow for improve ability to complete ADLs. Improved SUBJECTIVE: Patient with minimal to no change since first being seen, but also no development of new symptoms. Exercises make her feel less stiff and like she moves better. Still seems to be tripping on things on L side. Pain: Pain Pain Level: 0 PROMIS Scales 09/06/2024 07/28/2024 Higher is Better Phys Func - T Score 47 (within normal limits) 47 (within normal limits) Phys Func - Percentile 38 38 Self-Eff Symptom - T Score 48 (Average) 46 (Average) Self-Eff Symptom - Percentile 42 34 07/28/2024 Lower is Better Pain Interference - T Score 53 (within normal limits) Pain Interference - Percentile 38 T-scores: mean of general population = 50. 5 points is clinically meaningfully difference Percentiles provide an indication of how the patient's score ranks in relation to the general population. Higher percentile rankings indicate better function/quality of life. 50th percentile is the average of the general population and indicates half of respondents had a worse score. OBJECTIVE MEASURES WITH LEVEL OF FUNCTION: Lumbar Spine AROM Lumbar Flexion: Normal Lumbar Extension: Normal Lumbar R Side-Bend: Normal Lumbar L Side-Bend: Normal Lumbar R Rotation: Normal Lumbar L Rotation: Normal LE Strength Trunk Strength: 4+/5 TREATMENT: Therapeutic Exercise: 1: *Primal push up and variations 3x10 each 2: *BTB pallof press 3x10/side 3: *BTB stir the pot 3x10/side cw/ccw 4: * bugs 3x10/side 5: reviewed HEP and discussed progression of exercises at length 6: Objective measures obtained Skilled Intervention: Patient was educated in proper exercise technique and purpose for exercises. Skilled judgment was used in selection of appropriate interventions. Provided written instruction for home exercise program to facilitate proper performance and compliance. Correct performance of therapeutic exercises was facilitated with verbal, visual, and tactile cuing. Billing Therapeutic Exercise Treatment Minutes: 40 Skilled Treatment Time Minutes (timed and untimed codes): 40 Total Session Time (minutes): 40 Session Start Time : 1315 Session Stop Time : 1355 Negro Dawson PT Program_ID:[id number] Access Code: [email or web address] URL: [email or web address] Date: 09-06-2024 Prepared By: Negro Dawson Program Notes Exercises - Shoulder External Rotation and Scapular Retraction with Resistance - 1 x daily - 7 x weekly - 3 sets - 10 reps - Shoulder extension with resistance - Neutral - 1 x daily - 7 x weekly - 3 sets - 10 reps - Standing Shoulder Diagonal Horizontal Abduction 60/120 Degrees with Resistance - 1 x daily - 7 x weekly - 3 sets - 10 reps - Standing Shoulder Horizontal Abduction with Resistance - 1 x daily - 7 x weekly - 3 sets - 10 reps - Quadruped Transversus Abdominis Bracing - 1 x daily - 7 x weekly - 3 sets - 10 reps - Quadruped Pelvic Floor Contraction with Opposite Arm and Leg Lift - 1 x daily - 7 x weekly - 3 sets - 10 reps - Primal Push Up - 1 x daily - 7 x weekly - 3 sets - 10 reps - Primal Push Up with Shoulder Taps - 1 x daily - 7 x weekly - 3 sets - 10 reps - Primal Push Up with Alternating Leg Extensions - 1 x daily - 7 x weekly - 3 sets - 10 reps - Supine Bug with Leg Extension - 1 x daily - 7 x weekly - 3 sets - 10 reps - Standing Anti-Rotation Press with Anchored Resistance - 1 x daily - 7 x weekly - 3 sets - 10 reps - Stir the Pot - 1 x daily - 7 x weekly - 3 sets - 10 reps documented in this encounter [facility] 09-05-2024 Instructions Sandra Wallace LPN - 09/05/2024 2:41 PM EST YOUR RECOVERY After your biopsy you may have: Vaginal bleeding (less than a normal menstrual period) Mild cramping Do NOT put anything in the vagina for 1 week after your endometrial biopsy. This includes: tampons douches and refraining from having sexual intercourse If you have any discomfort, you may take an over the counter pain medication (motrin, advil, ibuprofen, tylenol, etc). If this does not relieve your discomfort, contact the office. It is okay to wear a sanitary pad until the discharge and spotting stops. RISKS Although problems seldom occur with endometrial biopsies, there can be some complications. You may feel faint during and shortly after the procedure as well as have some bleeding after the procedure. There is also a risk of infection after the procedure. These complications are rare and can be easily treated. You should contact you doctor is you have any of the following: Heavy bleeding (more than your normal period) Bleeding with clots Severe abdominal pain Fever (more than 100.4F) Foul smelling vaginal discharge RESULTS We will have the results of your biopsy in 1-2 weeks. If you do not hear the results of your biopsy after 2 weeks, please contact the office for the results. If you have any additional questions or concerns please do not hesitate to contact the office. documented in this encounter [facility] 09-05-2024 Note HNO ID: [id number] Author: MARGA CROWE MD Service: ? Author Type: Physician Type: Progress Notes Filed: 09/06/2024 10:40 Note Text: Rosalinda Russo is a 54 year old female who presents for problem visit for irreg menses for a couple of years. HPI: 54 YOF notes she had some hot flashes a couple of years ago and was dx w/ CML. Not as many hot flashes now. No vaginal dryness. LMP October 2023 and they were regular up until then. Some spotting intermittently, no pain. Had pelvic US as recommended by her previous pt sitter in [place] and now moving care here so here to establish. Had hysteroscopy [facility] in 2022, disordered proliferative endometrium and polyp. Was on low dose control for a while after that. Here for discussion of options. OB History T3 L2 SAB0 IAB0 Ectopic0 Multiple0 Live Births2 [place] History LMP: 10/14/2023 (Approximate), Premenopausal Age at Menarche: 13 Age at First : Age at Menopause: [place] History Comments: Sexual Activity: Yes; Male Contraception: No contraception data on record PAST MEDICAL HISTORY Diagnosis Date Benign hypertension 09/03/2017 Hypothyroid Rosacea PAST SURGICAL HISTORY Procedure Laterality Date SECTION HX 01/2013 [facility] [place] [facility] RE[facility]/2013 Dr Hurtado [facility] LAPAROSCOPY REPAIR INCISIONAL HERNIA REDUCIBLE 07/2013 [facility] [place] FAMILY HISTORY Problem Relation Age of Onset Depression Mother Diabetes Father Cancer Father liver Hypertension Father Blood Clots Sister Hypertension Sister Alcohol abuse Sister Stroke Maternal Grandmother Blindness Maternal Grandmother Hypertension Maternal Grandmother Diabetes Maternal Grandmother Hypertension Maternal Grandfather Diabetes Maternal Grandfather Heart Attack Paternal Grandmother Hypertension Paternal Grandfather Stroke Paternal Grandfather Diabetes Paternal Grandfather Social History Tobacco Use Smoking status: Never Smokeless tobacco: Never Vaping Use Vaping status: Never Used Substance Use Topics Alcohol use: Not Currently Comment: rarely Drug use: No Current Outpatient Medications Medication Sig buPROPion XL (WELLBUTRIN XL) 300 mg 24 hr tablet Take 1 tablet by mouth once daily. SYNTHROID 100 mcg tablet Take 1 tablet by mouth once daily. Take on empty stomach Azelaic Acid (FINACEA) 15 % gel Apply 1 application to affected area two times a day. dasatinib (SPRYCEL) 100 mg tablet Take 1 tablet (100 mg) by mouth once daily. amLODIPine (NORVASC) 2.5 mg tablet Take 1 tablet by mouth once daily. lisinopril-hydroCHLOROthiazide (ZESTORETIC) 20-12.5 mg per tablet Take 1 tablet by mouth once daily. acetaminophen (TYLENOL EXTRA STRENGTH) 500 mg tablet Take 1,000 mg by mouth every 8 hours as needed. Cholecalciferol, Vitamin D3, 2,000 unit cap Take 1 tablet by mouth once daily. No current facility-administered medications for this visit. Allergies As of Date: 09/05/2024 (No Known Allergies) Fully Assessed 09/05/2024 REVIAllergies and current medication updated:Yes SENSITIVE EXAM: Sensitive exam not performed. EXAM: BP 126/72 Wt 166 lb 6.4 oz (75.5kg) LMP 10/14/2023 GENERAL: pleasant, female in no apparent distress ASSESSMENT AND PLAN: Assessment AND Plan Endometrial thickening on ultrasound Orders: CONSULT TO GYNECOLOGY ENDOMETRIAL BIOPSY PELVIC US [facility]; Future Ovarian cyst, right Orders: PELVIC US [facility]; Future D/w her recommend progesterone challenge, repeat US and EMB. May need cyclic progesterone (hasn't tolerated progesteorne well in the past vs low dose combined hormonal contraceptives to cycle as likely oligoovulatory due to perimenopause. Questions answered. She agrees w/ plan. Marga Crowe MD [facility] 09-05-2024 History of Present illness Narrative Rosalinda Russo is a 54 year old female who presents for problem visit for irreg menses for a couple of years. HPI: 54 YOF notes she had some hot flashes a couple of years ago and was dx w/ CML. Not as many hot flashes now. No vaginal dryness. LMP October 2023 and they were regular up until then. Some spotting intermittently, no pain. Had pelvic US as recommended by her previous pt sitter in [place] and now moving care here so here to establish. Had hysteroscopy [facility] in 2022, disordered proliferative endometrium and polyp. Was on low dose control for a while after that. Here for discussion of options. OB History T3 L2 SAB0 IAB0 Ectopic0 Multiple0 Live Births2 [place] History LMP: 10/14/2023 (Approximate), Premenopausal Age at Menarche: 13 Age at First : Age at Menopause: [place] History Comments: Sexual Activity: Yes; Male Contraception: No contraception data on record PAST MEDICAL HISTORY Diagnosis Date Benign hypertension 09/03/2017 Hypothyroid Rosacea PAST SURGICAL HISTORY Procedure Laterality Date SECTION HX 01/2013 [facility] CHOLECYSTECTOMY 2009 [facility] HERNIA REPAIR HX 11/2013 Dr Hurtado - [facility] LAPAROSCOPY REPAIR INCISIONAL HERNIA REDUCIBLE 07/2013 [facility] FAMILY HISTORY Problem Relation Age of Onset Depression Mother Diabetes Father Cancer Father liver Hypertension Father Blood Clots Sister Hypertension Sister Alcohol abuse Sister Stroke Maternal Grandmother Blindness Maternal Grandmother Hypertension Maternal Grandmother Diabetes Maternal Grandmother Hypertension Maternal Grandfather Diabetes Maternal Grandfather Heart Attack Paternal Grandmother Hypertension Paternal Grandfather Stroke Paternal Grandfather Diabetes Paternal Grandfather Social History Tobacco Use Smoking status: Never Smokeless tobacco: Never Vaping Use Vaping status: Never Used Substance Use Topics Alcohol use: Not Currently Comment: rarely Drug use: No Current Outpatient Medications Medication Sig buPROPion XL (WELLBUTRIN XL) 300 mg 24 hr tablet Take 1 tablet by mouth once daily. SYNTHROID 100 mcg tablet Take 1 tablet by mouth once daily. Take on empty stomach Azelaic Acid (FINACEA) 15 % gel Apply 1 application to affected area two times a day. dasatinib (SPRYCEL) 100 mg tablet Take 1 tablet (100 mg) by mouth once daily. amLODIPine (NORVASC) 2.5 mg tablet Take 1 tablet by mouth once daily. lisinopril-hydroCHLOROthiazide (ZESTORETIC) 20-12.5 mg per tablet Take 1 tablet by mouth once daily. acetaminophen (TYLENOL EXTRA STRENGTH) 500 mg tablet Take 1,000 mg by mouth every 8 hours as needed. Cholecalciferol, Vitamin D3, 2,000 unit cap Take 1 tablet by mouth once daily. No current facility-administered medications for this visit. Allergies As of Date: 09/05/2024 (No Known Allergies) Fully Assessed 09/05/2024 REVIAllergies and current medication updated:Yes SENSITIVE EXAM: Sensitive exam not performed. EXAM: BP 126/72 Wt 166 lb 6.4 oz (75.5kg) LMP 10/14/2023 GENERAL: pleasant, female in no apparent distress ASSESSMENT AND PLAN: Assessment & Plan Endometrial thickening on ultrasound Orders: CONSULT TO GYNECOLOGY ENDOMETRIAL BIOPSY PELVIC US [facility]; Future Ovarian cyst, right Orders: PELVIC US [facility]; Future D/w her recommend progesterone challenge, repeat US and EMB. May need cyclic progesterone (hasn't tolerated progesteorne well in the past vs low dose combined hormonal contraceptives to cycle as likely oligoovulatory due to perimenopause. Questions answered. She agrees w/ plan. Marga Crowe MD documented in this encounter [facility] 09-05-2024 Telephone encounter Note Patient Adeptencehart message requesting the following refill Refill(s) Requested: Requested Prescriptions Pending Prescriptions Disp Refills buPROPion XL (WELLBUTRIN XL) 300 mg 24 hr tablet 90 tablet 3 Sig: Take 1 tablet by mouth once daily. ALLERGIES No Known Allergies (home) [phone] (cell) Last Office Visit Date: 06/21/2024 Last Distance Health Visit: Visit date not found Future Appointment: 09/23/2024 The patients preferred pharmacy has been captured for this encounter? yes Request is for script(s) to be escript to pharmacy. Bailee Christensen LPN [facility] 09-05-2024 Miscellaneous Notes Patient [email or web address] message requesting the following refill Refill(s) Requested: Requested Prescriptions Pending Prescriptions Disp Refills buPROPion XL (WELLBUTRIN XL) 300 mg 24 hr tablet 90 tablet 3 Sig: Take 1 tablet by mouth once daily. ALLERGIES No Known Allergies (home) [phone] (cell) Last Office Visit Date: 06/21/2024 Last Distance Health Visit: Visit date not found Future Appointment: 09/23/2024 The patients preferred pharmacy has been captured for this encounter? yes Request is for script(s) to be escript to pharmacy. Bailee Christensen LPN documented in this encounter [facility] 08-17-2024 Telephone encounter Note Prior Auth for cody completed, approved, and scanned into chart. Demetra Butler LPN [facility] 08-17-2024 Miscellaneous Notes Prior Auth for cody completed, approved, and scanned into chart. Demetra Butler LPN documented in this encounter [facility] 07-29-2024 Note HNO ID: [id number] Author: NEGRO DAWSON PT Service: ? Author Type: Physical Therapist Type: Progress Notes Filed: 07/29/2024 10:21 Note Text: Episode Visit Count: 1 Therapist That Will Accept/Oversee The Plan Of Care: Negro Dawson Start of Care Date: 07/28/24 Onset Date: 08/10/23 Patient Identified by Name and Date of : Yes REHABILITATION AND SPORTS THERAPY PHYSICAL THERAPY EVALUATION PLAN OF CARE: Assessment: Rosalinda Russo presents with diagnosis of pars defect of lumbar spine and scoliosis that interferes with nothing . The patient presents with impairments in ADL's, overall function, range of motion, and strength. PROMIS? (Patient-Reported Outcomes Measurement Information System) scores were reviewed and identified as within normal limits. Prognosis for therapy is Good due to: current objective clinical presentation, good overall health status, good support system/ coping skills . The patient will benefit from skilled therapy services to meet the goals established for this plan of care as noted below. Classification Pain Mechanism Classification: Nociceptive Low Back Pain Classification: Functional Optimization Goals for Episode of Care: established 07/28/24 Independent in home exercises. Maintain proper sitting posture throughout session Patient will increase strength of trunk/core to 5/5 to allow for improve ability to complete ADLs. Time Frame for Goals and Treatment : 09/29/24 Planned Interventions, Frequency, and Duration: Current Frequency: 1x every other week Duration: 8 weeks Total Number of Visits Planned: 4 Planned Treatment Interventions: Therapeutic exercise (82568), Neuromuscular re-education (33423), Manual therapy (76117), Therapeutic activities (06793), Self-usp management (10386), Patient/Family/Caregiver Education, Body Mechanics Training PLAN FOR NEXT VISIT: Assess compliance with HEP, may progress thoracic strengthening to prone exercises Patient demonstrates good understanding of plan of care and treatment. The above goals and plan of care were discussed and agreed upon by patient/family. SUBJECTIVE: Patient comes in today after imaging found a pars defect and thoracic scoliosis. Patient doesn't have complaints of pain, moreso just stiffness and an ocassional ache or soreness. She does have some noted weakness in the LLE, finding she trips often or just feels weaker on the L Functional Limitations: nothing Prior Level of Function: Independent without limitations Intake Information: Prescription present Red Flags Vertebral Fracture Clinical Reasoning: (known fracture, deemed stable) Abdominal Aortic Aneurysm Clinical Reasoning: No identified risk factors. Cancer Red Flags: History of Cancer Cancer Clinical Reasoning: (cancer currently being monitored) Infection Clinical Reasoning: No identified risk factors. Cauda Equina Syndrome Clinical Reasoning: No identified risk factors. Red Flags - Cervical Cancer Red Flags: History of Cancer Cancer Clinical Reasoning: (cancer currently being monitored) Infection Clinical Reasoning: No identified risk factors. Pain: Pain Pain Level: 0 PROMIS Scales 07/28/2024 Higher is Better Phys Func - Score 47 (within normal limits) Phys Func - Percentile 38 Self-Eff Symptom - Score 46 (Average) Self-Eff Symptom - Percentile 34 T-scores: mean of general population = 50. 5 points is clinically meaningfully difference Percentiles provide an indication of how the patient's score ranks in relation to the general population. Higher percentile rankings indicate better function/quality of life. 50th percentile is the average of the general population and indicates half of respondents had a worse score. OBJECTIVE MEASURES WITH LEVEL OF FUNCTION: Reflexes - Lower Extremity R Patellar: 2+ R Achilles: 2+ L Patellar: 3+ L Achilles: 2+ Lumbar Spine AROM Lumbar Flexion: Normal Lumbar Extension: Minimal limitation Lumbar R Side-Bend: Normal Lumbar L Side-Bend: Normal Lumbar R Rotation: Normal Lumbar L Rotation: Normal LE Strength Trunk Strength: 3+/5 R LE Strength: 4+/5 L LE Strength: 4+/5 Special Tests - Hip and Spine Hip and Spine Special Tests: SLR Test, Slump Test SLR Test: Right Negative, Left Negative Slump Test: Right Negative, Left Negative Education: Education Learning/educational needs: Home exercise program, Plan of Care, Posture, Body Mechanics TREATMENT: PT Treatment Interventions: Therapeutic Exercise, Self-Long Term Management Evaluation Therapeutic Exercise: 1: *GTB W's 3x10 2: *GTB pulldowns 3x10 3: *GTB star exercise 3x10 4: *Quadruped TA bracing 3x10, 5 sec holds 5: *Bird dogs 3x10/side Skilled Intervention: Patient was educated in proper exercise technique and purpose for exercises. Skilled judgment was used in selection of appropriate interventions. Provided written instruction for home exercise jb (more content not included)... [facility] 07-29-2024 History of Present illness Narrative Episode Visit Count: 1 Therapist That Will Accept/Oversee The Plan Of Care: Negro Dawson Start of Care Date: 07/28/24 Onset Date: 08/10/23 Patient Identified by Name and Date of : Yes REHABILITATION AND SPORTS THERAPY PHYSICAL THERAPY EVALUATION PLAN OF CARE: Assessment: Rosalinda Russo presents with diagnosis of pars defect of lumbar spine and scoliosis that interferes with nothing . The patient presents with impairments in ADL's, overall function, range of motion, and strength. PROMIS (Patient-Reported Outcomes Measurement Information System) scores were reviewed and identified as within normal limits. Prognosis for therapy is Good due to: current objective clinical presentation, good overall health status, good support system/ coping skills . The patient will benefit from skilled therapy services to meet the goals established for this plan of care as noted below. Classification Pain Mechanism Classification: Nociceptive Low Back Pain Classification: Functional Optimization Goals for Episode of Care: established 07/28/24 Independent in home exercises. Maintain proper sitting posture throughout session Patient will increase strength of trunk/core to 5/5 to allow for improve ability to complete ADLs. Time Frame for Goals and Treatment : 09/29/24 Planned Interventions, Frequency, and Duration: Current Frequency: 1x every other week Duration: 8 weeks Total Number of Visits Planned: 4 Planned Treatment Interventions: Therapeutic exercise (64105), Neuromuscular re-education (38440), Manual therapy (43092), Therapeutic activities (19172), Self-usp management (99122), Patient/Family/Caregiver Education, Body Mechanics Training PLAN FOR NEXT VISIT: Assess compliance with HEP, may progress thoracic strengthening to prone exercises Patient demonstrates good understanding of plan of care and treatment. The above goals and plan of care were discussed and agreed upon by patient/family. SUBJECTIVE: Patient comes in today after imaging found a pars defect and thoracic scoliosis. Patient doesn't have complaints of pain, moreso just stiffness and an ocassional ache or soreness. She does have some noted weakness in the LLE, finding she trips often or just feels weaker on the L Functional Limitations: nothing Prior Level of Function: Independent without limitations Intake Information: Prescription present Red Flags Vertebral Fracture Clinical Reasoning: (known fracture, deemed stable) Abdominal Aortic Aneurysm Clinical Reasoning: No identified risk factors. Cancer Red Flags: History of Cancer Cancer Clinical Reasoning: (cancer currently being monitored) Infection Clinical Reasoning: No identified risk factors. Cauda Equina Syndrome Clinical Reasoning: No identified risk factors. Red Flags - Cervical Cancer Red Flags: History of Cancer Cancer Clinical Reasoning: (cancer currently being monitored) Infection Clinical Reasoning: No identified risk factors. Pain: Pain Pain Level: 0 PROMIS Scales 07/28/2024 Higher is Better Phys Func - Score 47 (within normal limits) Phys Func - Percentile 38 Self-Eff Symptom - Score 46 (Average) Self-Eff Symptom - Percentile 34 T-scores: mean of general population = 50. 5 points is clinically meaningfully difference Percentiles provide an indication of how the patient's score ranks in relation to the general population. Higher percentile rankings indicate better function/quality of life. 50th percentile is the average of the general population and indicates half of respondents had a worse score. OBJECTIVE MEASURES WITH LEVEL OF FUNCTION: Reflexes - Lower Extremity R Patellar: 2+ R Achilles: 2+ L Patellar: 3+ L Achilles: 2+ Lumbar Spine AROM Lumbar Flexion: Normal Lumbar Extension: Minimal limitation Lumbar R Side-Bend: Normal Lumbar L Side-Bend: Normal Lumbar R Rotation: Normal Lumbar L Rotation: Normal LE Strength Trunk Strength: 3+/5 R LE Strength: 4+/5 L LE Strength: 4+/5 Special Tests - Hip and Spine Hip and Spine Special Tests: SLR Test, Slump Test SLR Test: Right Negative, Left Negative Slump Test: Right Negative, Left Negative Education: Education Learning/educational needs: Home exercise program, Plan of Care, Posture, Body Mechanics TREATMENT: PT Treatment Interventions: Therapeutic Exercise, Self-Long Term Management Evaluation Therapeutic Exercise: 1: *GTB W's 3x10 2: *GTB pulldowns 3x10 3: *GTB star exercise 3x10 4: *Quadruped TA bracing 3x10, 5 sec holds 5: *Bird dogs 3x10/side Skilled Intervention: Patient was educated in proper exercise technique and purpose for exercises. Skilled judgment was used in selection of appropriate interventions. Provided written instruction for home exercise program to facilitate proper performance and compliance. Correct performance of therapeutic exercises was facilitated with verbal, visual, and tactile cuing. Self-Long Term Management: 1: Spent time reviewing imaging and discussed rehab considerations, functional considerations Skilled Intervention: Skilled judgment in the selection of proper modification for activity of daily living/home management based on clinical presentation, deficits, and needs. Reviewed patient specific diagnosis in relation to activities of daily living/home management. Activity progression based on professional judgement. Billing Therapeutic Exercise Treatment Minutes: 12 Self-Care/Home Management Treatment Minutes: 15 Skilled Treatment Time Minutes (timed and untimed codes): 46 Total Session Time (minutes): 46 Session Start Time : 1003 Session Stop Time : 1049 Negro Dawson PT Program_ID:[id number] Access Code: [email or web address] URL: [email or web address] Date: 07-28-2024 Prepared By: Negro Dawson Program Notes Exercises - Shoulder External Rotation and Scapular Retraction with Resistance - 1 x daily - 7 x weekly - 3 sets - 10 reps - Shoulder extension with resistance - Neutral - 1 x daily - 7 x weekly - 3 sets - 10 reps - Standing Shoulder Diagonal Horizontal Abduction 60/120 Degrees with Resistance - 1 x daily - 7 x weekly - 3 sets - 10 reps - Standing Shoulder Horizontal Abduction with Resistance - 1 x daily - 7 x weekly - 3 sets - 10 reps - Quadruped Transversus Abdominis Bracing - 1 x daily - 7 x weekly - 3 sets - 10 reps - Quadruped Pelvic Floor Contraction with Opposite Arm and Leg Lift - 1 x daily - 7 x weekly - 3 sets - 10 reps documented in this encounter [facility] 07-06-2024 Telephone encounter Note Called pt and left a vm to return on our call need a pt appt [facility] 07-06-2024 Miscellaneous Notes Called pt and left a vm to return on our call need a pt appt Patient contacted and provider's message below was reviewed. Patient agreeable to see Gynecology and transferred to grain origination specialist. Asking if Dr. Petersen could place order for Physical Therapy Referral for patient, as recommended below. Order pended for review. Please call patient once order is placed to assist with scheduling. Thank you. With regards to the pelvic ultrasound I would send her to DIRECTOR OF PSYCHOLOGY and probably do endometrial sampling. Her results show that her uterus is thick but it is consistent with adenomyosis which is when the endometrial tissue exists within and grows into the uterine wall. Regards, Eden Petersen MD Patient denies any pain but would like to proceed with pain management. Order pended. Please review 07/01/24 pelvic ultrasound and advise. Marisela Balderrama MA ----- Message from Eden Petersen MD sent at 07/01/2024 1:01 PM EST ----- Staff please open a telephone encounter for her and ask her if she wants to do physical therapy. Darion Tellez regarding your x-ray of the back. This was the impression IMPRESSION: 1. L5 pars defects with grade 2 anterolisthesis at L5-S1. 2. Mild levoconvex curvature of the thoracic spine.2. 3. Moderate to severe degenerative changes, as described. 1. For the first point pars defect which means is that there is a small fracture of the supporting vertebrae of spinous process. This is not a huge concern unless there is significant pain in your back. For the condition itself it would be advised that you avoid any high impact sports which you do not do anyway. Avoid excessive back extension which would mean you have to stop doing it and that causes you to over Rojas back, avoid repetitive bending or twisting, and when I mean high impact sports and mean jumping running. #2. I would not be too concerned about the scoliosis, it is more on the milder side but it is causing some back deformity but I am more concerned about your kyphosis which is exaggerated curvature in the lower lumbar area. Physical therapy back braces might help. Back was not will be especially helpful if you have back pain. 3. You do have a lot of degenerative changes which are considered moderate to severe between your whole lumbar spine and I would say for that to physical therapy and exercise would help. Please let me know if you would like me to do physical therapy. Eden Sung documented in this encounter [facility] 07-06-2024 Telephone encounter Note Please contact Rosalinda to schedule mother as a new patient with Dr. Petersen. [facility] 07-06-2024 Miscellaneous Notes Please contact Rosalinda to schedule mother as a new patient with Dr. Petersen. Ok to set up as new patient Eden Sung MD documented in this encounter [facility] 07-05-2024 Telephone encounter Note Patient contacted and provider's message below was reviewed. Patient agreeable to see Gynecology and transferred to grain origination specialist. Asking if Dr. Petersen could place order for Physical Therapy Referral for patient, as recommended below. Order pended for review. Please call patient once order is placed to assist with scheduling. Thank you. [facility] 07-04-2024 Telephone encounter Note Ok to set up as new patient Eden Sung MD [facility] 07-04-2024 Telephone encounter Note With regards to the pelvic ultrasound I would send her to DIRECTOR OF PSYCHOLOGY and probably do endometrial sampling. Her results show that her uterus is thick but it is consistent with adenomyosis which is when the endometrial tissue exists within and grows into the uterine wall. Eden Sung MD [facility] 07-04-2024 Telephone encounter Note Patient denies any pain but would like to proceed with pain management. Order pended. Please review 07/01/24 pelvic ultrasound and advise. Marisela Balderrama MA [facility] 07-01-2024 Telephone encounter Note ----- Message from Eden Petersen MD sent at 07/01/2024 1:01 PM EST ----- Staff please open a telephone encounter for her and ask her if she wants to do physical therapy. Darion Tellez regarding your x-ray of the back. This was the impression IMPRESSION: 1. L5 pars defects with grade 2 anterolisthesis at L5-S1. 2. Mild levoconvex curvature of the thoracic spine.2. 3. Moderate to severe degenerative changes, as described. 1. For the first point pars defect which means is that there is a small fracture of the supporting vertebrae of spinous process. This is not a huge concern unless there is significant pain in your back. For the condition itself it would be advised that you avoid any high impact sports which you do not do anyway. Avoid excessive back extension which would mean you have to stop doing it and that causes you to over Rojas back, avoid repetitive bending or twisting, and when I mean high impact sports and mean jumping running. #2. I would not be too concerned about the scoliosis, it is more on the milder side but it is causing some back deformity but I am more concerned about your kyphosis which is exaggerated curvature in the lower lumbar area. Physical therapy back braces might help. Back was not will be especially helpful if you have back pain. 3. You do have a lot of degenerative changes which are considered moderate to severe between your whole lumbar spine and I would say for that to physical therapy and exercise would help. Please let me know if you would like me to do physical therapy. Eden Sung [facility] 07-01-2024 History of Present illness Narrative Radiology Service Progress Note PATIENT NAME: Rosalinda Russo DATE OF SERVICE: July 01, 2024 TIME: 8:50 AM PATIENT IDENTITY VERIFICATION COMPLETED USING TWO (2) IDENTIFIERS: Name and Date of confirmed by patient verbally. FALL SCREENING: Has the patient had 2 falls in the last year or 1 fall with injury or currently using an Ambulatory Assistive Device (Walker, Cane, Wheelchair, Crutches, etc.)? No PATIENT GENDER DATA: Female. status: : No status: NO. PATIENT RELEVANT IMPLANT DATA REVIEWED: Not Applicable PATIENT PRESENTS WITH AN IMPLANTABLE OR ATTACHED REEL AND REWINDER OPERATOR: No RADIOLOGY DEPARTMENT: Ultrasound PERIPHERAL IV DATA: Not applicable SIGNED BY: Mariam Herrera RDMS July 01, 2024 8:50 AM documented in this encounter [facility] 07-01-2024 Note HNO ID: [id number] Author: MARIAM HERRERA RDMS Service: ? Author Type: Counter Tacker Type: Progress Notes Filed: 07/01/2024 08:50 Note Text: Radiology Service Progress Note PATIENT NAME: Rosalinda Russo DATE OF SERVICE: July 01, 2024 TIME: 8:50 AM PATIENT IDENTITY VERIFICATION COMPLETED USING TWO (2) IDENTIFIERS: Name and Date of confirmed by patient verbally. FALL SCREENING: Has the patient had 2 falls in the last year or 1 fall with injury or currently using an Ambulatory Assistive Device (Walker, Cane, Wheelchair, Crutches, etc.)? No PATIENT GENDER DATA: Female. status: : No status: NO. PATIENT RELEVANT IMPLANT DATA REVIEWED: Not Applicable PATIENT PRESENTS WITH AN IMPLANTABLE OR ATTACHED REEL AND REWINDER OPERATOR: No RADIOLOGY DEPARTMENT: Ultrasound PERIPHERAL IV DATA: Not applicable SIGNED BY: Mariam Herrera RDMS July 01, 2024 8:50 AM [facility] 06-27-2024 Telephone encounter Note Patient Adeptencehart message requesting the following refill Refill(s) Requested: Requested Prescriptions Pending Prescriptions Disp Refills SYNTHROID 100 mcg tablet 90 tablet 5 Sig: Take 1 tablet by mouth once daily. Take on empty stomach ALLERGIES No Known Allergies (home) [phone] (cell) Last Office Visit Date: 06/21/2024 Last Distance Health Visit: Visit date not found Future Appointment: 09/23/2024 The patients preferred pharmacy has been captured for this encounter? yes Request is for script(s) to be escript to pharmacy. Bailee Christensen LPN [facility] 06-27-2024 Miscellaneous Notes Patient [email or web address] message requesting the following refill Refill(s) Requested: Requested Prescriptions Pending Prescriptions Disp Refills SYNTHROID 100 mcg tablet 90 tablet 5 Sig: Take 1 tablet by mouth once daily. Take on empty stomach ALLERGIES No Known Allergies (home) [phone] (cell) Last Office Visit Date: 06/21/2024 Last Distance Health Visit: Visit date not found Future Appointment: 09/23/2024 The patients preferred pharmacy has been captured for this encounter? yes Request is for script(s) to be escript to pharmacy. Bailee Christensen LPN documented in this encounter [facility] 06-21-2024 History of Present illness Narrative Radiology Service Progress Note PATIENT NAME: Rosalinda Russo DATE OF SERVICE: June 21, 2024 TIME: 1:36 PM PATIENT IDENTITY VERIFICATION COMPLETED USING TWO (2) IDENTIFIERS: Name and Date of confirmed by patient verbally. FALL SCREENING: Has the patient had 2 falls in the last year or 1 fall with injury or currently using an Ambulatory Assistive Device (Walker, Cane, Wheelchair, Crutches, etc.)? No PATIENT GENDER DATA: Female. status: : No status: NO. PATIENT RELEVANT IMPLANT DATA REVIEWED: Not Applicable PATIENT PRESENTS WITH AN IMPLANTABLE OR ATTACHED REEL AND REWINDER OPERATOR: No RADIOLOGY DEPARTMENT: General X-ray: Exam(s) Completed: Spine X-Ray(s): Scoliosis Series , PA/LAT PERIPHERAL IV DATA: Not applicable SIGNED BY: RT Jm(R) June 21, 2024 1:36 PM documented in this encounter [facility] 06-21-2024 Note HNO ID: [id number] Author: LISA KING RT(Edwige) Service: ? Author Type: Technologist Type: Progress Notes Filed: 06/21/2024 13:38 Note Text: Radiology Service Progress Note PATIENT NAME: Rosalinda Russo DATE OF SERVICE: June 21, 2024 TIME: 1:36 PM PATIENT IDENTITY VERIFICATION COMPLETED USING TWO (2) IDENTIFIERS: Name and Date of confirmed by patient verbally. FALL SCREENING: Has the patient had 2 falls in the last year or 1 fall with injury or currently using an Ambulatory Assistive Device (Walker, Cane, Wheelchair, Crutches, etc.)? No PATIENT GENDER DATA: Female. status: : No status: NO. PATIENT RELEVANT IMPLANT DATA REVIEWED: Not Applicable PATIENT PRESENTS WITH AN IMPLANTABLE OR ATTACHED REEL AND REWINDER OPERATOR: No RADIOLOGY DEPARTMENT: General X-ray: Exam(s) Completed: Spine X-Ray(s): Scoliosis Series , PA/LAT PERIPHERAL IV DATA: Not applicable SIGNED BY: RT Jm(R) June 21, 2024 1:36 PM [facility] 06-21-2024 History of Present illness Narrative Reason for Visit Patient presents with: Follow Up Rosalinda Russo is a 52 year old female who presents here today for Above Complaints.. Health Maintenance HEPATITIS B(1 of 3 - 3-dose series) MAMMOGRAM SHINGRIX VACCINE(1 of 2) INFLUENZA(1) LIPID SCREEN HPI Jessica is a very pleasant 54-year-old with a past medical history of hypertension, anxiety depression and hypothyroidism. Recently she was diagnosed with Chronic myeloid leukemia. Here to talk about her periods cessation and few other issues She has a pt sitter in [place], sees him yearly. Her periods were very regular, had no problems till recently when her. Stopped around 7 months ago and a couple months back she had spotting that lasted for 3 weeks. Was advised to get ultrasound of the uterus. Her FSH that was done in our system a few months ago was not in the postmenopausal Levels. She did have repeat test in the past week and her levels were definitely towards the postmenopausal level. They were higher than the upper range of the luteal follicular and ovulatory phases. They were reaching towards the postmenopausal phase. Last year she did have some irregularities. She had her period in August 2022 she had her regular periods and on october 25, she had one occurrence, of spotting the blood was dark and dried. Her mother had surgical menopause. She has not been gaining weight but rather losing weight, she has lost around 50 pounds, intentionally in 2 years, cut out her soda, does intermittent fasting. On retrospect we think that this weight loss is probably partially from the CML in addition to her diet and exercise. She denies having nausea, bloating, easy satiety, abdominal pain, or other pt sitter symptoms She does have some hot flashes, no genitourinary syndrome. On wellbutrin so she has not noticed any fatigue or depression that is over her baseline. HTN: Compliant with medications. Denies any chest pain, palpitations, or edema. No SOB. Doesn't check BP at home generally. Careful with diet to avoid salt, trying to eat more fruits and vegetables, exercises regularly. No problem-specific Assessment & Plan notes found for this encounter. PAST MEDICAL HISTORY Diagnosis Date Benign hypertension 09/03/2017 Hypothyroid Rosacea PAST SURGICAL HISTORY Procedure Laterality Date SECTION HX 01/2013 [facility] CHOLECYSTECTOMY [facility] HERNIA REPAIR HX 11/2013 Dr Hurtado [facility] LAPAROSCOPY REPAIR INCISIONAL HERNIA REDUCIBLE 07/2013 [facility] FAMILY HISTORY Problem Relation Age of Onset Depression Mother Diabetes Father Cancer Father liver Hypertension Father Blood Clots Sister Hypertension Sister Alcohol abuse Sister Stroke Maternal Grandmother Blindness Maternal Grandmother Hypertension Maternal Grandmother Diabetes Maternal Grandmother Hypertension Maternal Grandfather Diabetes Maternal Grandfather Heart Attack Paternal Grandmother Hypertension Paternal Grandfather Stroke Paternal Grandfather Diabetes Paternal Grandfather Social History Tobacco Use Smoking status: Never Smokeless tobacco: Never Vaping Use Vaping status: Never Used Substance Use Topics Alcohol use: Not Currently Comment: rarely Drug use: No Past medical history, appointments, medications, allergies reviewed. Pertinent Lab/Diagnostic Studies are reviewed and discussed today Current Outpatient Medications: Azelaic Acid (FINACEA) 15 % gel dasatinib (SPRYCEL) 100 mg tablet amLODIPine (NORVASC) 2.5 mg tablet lisinopril-hydroCHLOROthiazide (ZESTORETIC) 20-12.5 mg per tablet buPROPion XL (WELLBUTRIN XL) 300 mg 24 hr tablet acetaminophen (TYLENOL EXTRA STRENGTH) 500 mg tablet SYNTHROID 100 mcg tablet Cholecalciferol, Vitamin D3, 2,000 unit cap Review of Systems CONSTITUTIONAL: No fevers, chills night sweats, unintended weight loss CARDIOVASCULAR: No chest pain, dyspnea, palpitations, orthopnea, PND, ankle edema. PULM: No dyspnea, unexplained cough. GI: No dysphagia/odynophagia, problematic reflux, constipation, diarrhea, changes in stool habits, hematochezia, melena. : No new urinary complaints, including dysuria, gross hematuria or pyuria. NEURO: No new balance problems, peripheral weakness/paresthesias or numbness of concern. Physical Exam BP 108/80 Pulse 63 Resp 16 Wt 73.9 kg (163 lb) LMP 10/14/2023 (Approximate) BMI 28.52 kg/m General appearance: Well appearing, alert, in no acute distress, well nourished. Skin: Skin color, texture, turgor normal, no suspicious rashes or lesions Head: Normocephalic, no masses, lesions, tenderness or abnormalities Eyes: Anicteric sclera. Pupils are equally round and reactive to light. Extraocular movements are intact. Lungs: Lungs clear to auscultation. No wheezing, rhonchi, rales Heart: RRR without murmur, gallop, or rubs. Abdomen: soft, nondistended, nontender, no hepatosplenomegaly or masses Spine: She has a hump on the left side, when she bends over definitely it appears to have some levoscoliosis.. ASSESSMENT/PLAN: 1. Vitamin D deficiency - ICD9: 268.9, ICD10: E55.9 (primary diagnosis) Checking levels to see if her vitamin D and iron could contribute to some of her complaints - VITAMIN D 25 HYDROXY 2. Iron deficiency - ICD9: 280.9, ICD10: E61.1 - IRON AND TIBC - FERRITIN 3. Spotting - ICD9: 623.8, ICD10: N92.0 Just to be on the safe side we want to check her uterine thickness with a recent history of CML - US FEMALE PELVIS TRANSABD LTD - US FEMALE PELVIS TRANSVAG 4. Scoliosis, unspecified scoliosis type, unspecified spinal region - ICD9: 737.30, ICD10: M41.9 - XR SCOLIOSIS PA STAND 1V - XR SCOLIOSIS PA STAND/LAT 2V Eden Petersen MD documented in this encounter [facility] 06-21-2024 Note HNO ID: [id number] Author: EDEN PETERSEN MD Service: ? Author Type: Physician Type: Progress Notes Filed: 06/22/2024 09:01 Note Text: Reason for Visit Patient presents with: Follow Up Rosalinda Russo is a 52 year old female who presents here today for Above Complaints.. Health Maintenance HEPATITIS B(1 of 3 - 3-dose series) MAMMOGRAM SHINGRIX VACCINE(1 of 2) INFLUENZA(1) LIPID SCREEN HPI Jessica is a very pleasant 54-year-old with a past medical history of hypertension, anxiety depression and hypothyroidism. Recently she was diagnosed with Chronic myeloid leukemia. Here to talk about her periods cessation and few other issues She has a pt sitter in [place], sees him yearly. Her periods were very regular, had no problems till recently when her. Stopped around 7 months ago and a couple months back she had spotting that lasted for 3 weeks. Was advised to get ultrasound of the uterus. Her FSH that was done in our system a few months ago was not in the postmenopausal Levels. She did have repeat test in the past week and her levels were definitely towards the postmenopausal level. They were higher than the upper range of the luteal follicular and ovulatory phases. They were reaching towards the postmenopausal phase. Last year she did have some irregularities. She had her period in August 2022 she had her regular periods and on october 25, she had one occurrence, of spotting the blood was dark and dried. Her mother had surgical menopause. She has not been gaining weight but rather losing weight, she has lost around 50 pounds, intentionally in 2 years, cut out her soda, does intermittent fasting. On retrospect we think that this weight loss is probably partially from the CML in addition to her diet and exercise. She denies having nausea, bloating, easy satiety, abdominal pain, or other pt sitter symptoms She does have some hot flashes, no genitourinary syndrome. On wellbutrin so she has not noticed any fatigue or depression that is over her baseline. HTN: Compliant with medications. Denies any chest pain, palpitations, or edema. No SOB. Doesn't check BP at home generally. Careful with diet to avoid salt, trying to eat more fruits and vegetables, exercises regularly. No problem-specific Assessment AND Plan notes found for this encounter. PAST MEDICAL HISTORY Diagnosis Date Benign hypertension 09/03/2017 Hypothyroid Rosacea PAST SURGICAL HISTORY Procedure Laterality Date SECTION HX 01/2013 [facility] CHOLECYSTECTOMY 2009 [facility] HERNIA REPAIR HX 11/2013 [facility] LAPAROSCOPY REPAIR INCISIONAL HERNIA REDUCIBLE 07/2013 [facility] FAMILY HISTORY Problem Relation Age of Onset Depression Mother Diabetes Father Cancer Father liver Hypertension Father Blood Clots Sister Hypertension Sister Alcohol abuse Sister Stroke Maternal Grandmother Blindness Maternal Grandmother Hypertension Maternal Grandmother Diabetes Maternal Grandmother Hypertension Maternal Grandfather Diabetes Maternal Grandfather Heart Attack Paternal Grandmother Hypertension Paternal Grandfather Stroke Paternal Grandfather Diabetes Paternal Grandfather Social History Tobacco Use Smoking status: Never Smokeless tobacco: Never Vaping Use Vaping status: Never Used Substance Use Topics Alcohol use: Not Currently Comment: rarely Drug use: No Past medical history, appointments, medications, allergies reviewed. Pertinent Lab/Diagnostic Studies are reviewed and discussed today Current Outpatient Medications: Azelaic Acid (FINACEA) 15 % gel dasatinib (SPRYCEL) 100 mg tablet amLODIPine (NORVASC) 2.5 mg tablet lisinopril-hydroCHLOROthiazide (ZESTORETIC) 20-12.5 mg per tablet buPROPion XL (WELLBUTRIN XL) 300 mg 24 hr tablet acetaminophen (TYLENOL EXTRA STRENGTH) 500 mg tablet SYNTHROID 100 mcg tablet Cholecalciferol, Vitamin D3, 2,000 unit cap Review of Systems CONSTITUTIONAL: No fevers, chills night sweats, unintended weight loss CARDIOVASCULAR: No chest pain, dyspnea, palpitations, orthopnea, PND, ankle edema. PULM: No dyspnea, unexplained cough. GI: No dysphagia/odynophagia, problematic reflux, constipation, diarrhea, changes in stool habits, hematochezia, melena. : No new urinary complaints, including dysuria, gross hematuria or pyuria. NEURO: No new balance problems, peripheral weakness/paresthesias or numbness of concern. Physical Exam BP 108/80 Pulse 63 Resp 16 Wt 73.9 kg (163 lb) LMP 10/14/2023 (Approximate) BMI 28.52 kg/m? General appearance: Well appearing, alert, in no acute distress, well nourished. Skin: Skin color, texture, turgor normal, no suspicious rashes or lesions Head: Normocephalic, no masses, lesions, tenderness or abnormalities Eyes: Anicteric sclera. Pupils are equally round and reactive to light. Extraocular movements (more content not included)... [facility] 06-17-2024 History of Present illness Narrative ANNUAL EXAM Chief Complaint Chief Complaint Patient presents with Annual Exam Pt here for yearly exam. Complaints: Last pap: 01/17/21 Last mammo: 04/17/23 Last dexa: 04/17/23 LMP: 10/2023 P: 3 HPI Rosalinda Russo is a 54 y.o., cynthia-menopausal female here for annual well woman exam. No menses since October, spotted in April. Some hot flushes. In remission from CML. On oral chemo. Medications Current Outpatient Medications on File Prior to Visit Medication Sig Dispense Refill amLODIPine (Norvasc) 2.5 MG tablet azelaic acid (Finacea) 15 % gel Apply 1 Application topically in the morning and 1 Application in the evening. dasatinib (Sprycel) 100 MG chemo tablet Take 100 mg by mouth Daily. acetaminophen (Tylenol) 500 MG tablet Take 1,000 mg by mouth every 8 (eight) hours if needed buPROPion XL (Wellbutrin XL) 300 MG 24 hr tablet Take 300 mg by mouth in the morning. lisinopril-hydroCHLOROthiazide 20-12.5 MG tablet Take 1 tablet by mouth in the morning. Synthroid 100 MCG tablet TAKE 1 TABLET BY MOUTH ONCE DAILY. TAKE ON EMPTY STOMACH [DISCONTINUED] amLODIPine (Norvasc) 5 MG tablet Take 5 mg by mouth in the morning. [DISCONTINUED] imatinib (Gleevec) 400 MG chemo tablet Take 400 mg by mouth Daily. [DISCONTINUED] 08/29 1-20 MG-MCG tablet Take by mouth Daily. No current facility-administered medications on file prior to visit. Past Medical Hx: Past Medical History: Diagnosis Date CML (chronic myelocytic leukemia) (CMS/HCC) Past Surgical Hx: No past surgical history on file. FamHx: Cancer-related family history includes Breast cancer in her mother's sister. There is no history of Cervical cancer or Uterine cancer. Social Hx: Social History Socioeconomic History Marital status: Spouse name: Not on file Number of children: Not on file Years of education: Not on file Highest education level: Not on file Occupational History Not on file Tobacco Use Smoking status: Not on file Smokeless tobacco: Not on file Substance and Sexual Activity Alcohol use: Not on file Drug use: Not on file Sexual activity: Not on file Other Topics Concern Not on file Social History Narrative Not on file Social Drivers of Health Financial Resource Strain: Low Risk (09/17/2023) Received from [facility] Overall Financial Resource Strain (CARDIA) Difficulty of Paying Living Expenses: Not hard at all Food Insecurity: No Food Insecurity (09/17/2023) Received from [facility] Hunger Vital Sign Worried About Running Out of Food in the Last Year: Never true Ran Out of Food in the Last Year: Never true Transportation Needs: No Transportation Needs (09/17/2023) Received from [facility] PRAPARE - Transportation Lack of Transportation (Medical): No Lack of Transportation (Non-Medical): No Physical Activity: Sufficiently Active (09/17/2023) Received from [facility] Exercise Vital Sign Days of Exercise per Week: 5 days Minutes of Exercise per Session: 30 min Stress: Stress Concern Present (09/17/2023) Received from [facility] [employer] [place] [employer] - Occupational Stress Questionnaire Feeling of Stress : Rather much Social Connections: Moderately Isolated (09/17/2023) Received from [facility] Social Connection and Isolation Panel [NHANES] Frequency of Communication with Friends and Family: Three times a week Frequency of Social Gatherings with Friends and Family: Once a week Attends [employer] Services: Never Active Member of Clubs or Organizations: No Attends Club or Organization Meetings: Never Marital Status: Intimate Partner Violence: Not on file Housing Stability: Unknown (09/17/2023) Received from [facility] Housing Stability Vital Sign Unable to Pay for Housing in the Last Year: Not on file Number of Places Lived in the Last Year: 1 Unstable Housing in the Last Year: No Physical Exam Vitals Vitals: 06/17/24 1131 Weight: 161 lb Height: 5' 5 Neck: No thyromegaly Breast: No masses, retractions or adenopathy Pelvic: Uterus firm, upper normal in size, no adnexal masses Diagnoses Diagnosis Plan 1. Menopause Follicle stimulating hormone Estradiol 2. Routine cervical smear THINPREP IMAGING PAP W/REFL HPV MRNA E6/E7 CML Menopausal symptoms Plans/Orders 1.Pap 2.Mammogram 3.FSH, E2 4.Dexa discussed documented in this encounter [facility] 06-10-2024 Telephone encounter Note SOCIAL WORK FOLLOW UP NOTE: CANCER CENTER Pt noted on [facility] report with a PHQ score of 8, below the threshold of requiring SW outreach. Pt also was seen by provider yesterday and per chart review, no concerns noted at OV. Deferred MAYA Moore [facility] 06-10-2024 Miscellaneous Notes SOCIAL WORK FOLLOW UP NOTE: CANCER CENTER Pt noted on [employer] [facility] report with a PHQ score of 8, below the threshold of requiring SW outreach. Pt also was seen by provider yesterday and per chart review, no concerns noted at OV. Deferred MAYA Moore documented in this encounter [facility] 06-09-2024 Note HNO ID: [id number] Author: PRINCE URIBE MD Service: ? Author Type: Physician Type: Progress Notes Filed: 06/09/2024 10:21 Note Text: (Elements copied from my note dated , have been reviewed and updated where appropriate, and all reflect current assessment and medical decision making from today's encounter, June 09, 2024) HISTORY OF PRESENT ILLNESS: Rosalinda Russo is a 53 year old female referred from ER with WBC 380K. Feels well, no fevers, active. Was in ER with chest pains, atypical, work up for this negative. Detailed review of labs Here for follow up, on Gleevec since Apr 14, 2023. Switched to dasatinib October 2023 due to persistent transcript Here for follow up, feels well, reviewed labs in detail, also NCCN guidelines. 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 Continue dasatinib. PCR testing 3 months. Written and verbal health teaching given to patient, patient verbalizes understanding and agrees with treatment plan. PAST MEDICAL HISTORY Diagnosis Date Benign hypertension 09/03/2017 Hypothyroid Rosacea PAST SURGICAL HISTORY Procedure Laterality Date SECTION HX 01/2013 [facility] CHOLECYSTECTOMY 2009 [facility] HERNIA REPAIR HX 11/2013 [facility] LAPAROSCOPY REPAIR INCISIONAL HERNIA REDUCIBLE 07/2013 [facility] FAMILY HISTORY Problem Relation Age of Onset Depression Mother Diabetes Father Cancer Father liver Hypertension Father Blood Clots Sister Hypertension Sister Alcohol abuse Sister Stroke Maternal Grandmother Blindness Maternal Grandmother Hypertension Maternal Grandmother Diabetes Maternal Grandmother Hypertension Maternal Grandfather Diabetes Maternal Grandfather Heart Attack Paternal Grandmother Hypertension Paternal Grandfather Stroke Paternal Grandfather Diabetes Paternal Grandfather Social History Tobacco Use Smoking status: Never Smokeless tobacco: Never Vaping Use Vaping status: Never Used Substance Use Topics Alcohol use: Not Currently Comment: rarely Drug use: No ALLERGIES: ALLERGIES No Known Allergies CURRENT OUTPATIENT MEDICATIONS: Azelaic Acid (FINACEA) 15 % gel Apply 1 application to affected area two times a day. dasatinib (SPRYCEL) 100 mg tablet Take 1 tablet (100 mg) by mouth once daily. amLODIPine (NORVASC) 2.5 mg tablet Take 1 tablet by mouth once daily. lisinopril-hydroCHLOROthiazide (ZESTORETIC) 20-12.5 mg per tablet Take 1 tablet by mouth once daily. buPROPion XL (WELLBUTRIN XL) 300 mg 24 hr tablet Take 1 tablet by mouth once daily. acetaminophen (TYLENOL EXTRA STRENGTH) 500 mg tablet Take 1,000 mg by mouth every 8 hours as needed. SYNTHROID 100 mcg tablet Take 1 tablet by mouth once daily. Take on empty stomach Cholecalciferol, Vitamin D3, 2,000 unit cap Take 1 tablet by mouth once daily. REVIEW OF SYSTEMS: GENERAL: No fever, night sweats, weight loss or malaise. All other reviewed and negative other than HPI. PHYSICAL EXAMINATION: VITAL SIGNS: BP 110/72 Pulse 62 Temp (Src) 99 (Temporal) Wt 162 lb 8 oz (73.7kg) SpO2 98% LMP 10/14/2023 GENERAL APPEARANCE: Well appearing, in no acute distress, alert and oriented x3, well-hydrated, well nourished. No splenomegaly I spent a total of 20 minutes on the date of the service which included preparing to see the patient, [id number] patient care, completing clinical documentation, obtaining and/or reviewing separately obtained history, counseling and educating the patient/family/caregiver, ordering medications, tests, or procedures, communicating with other HCPs (not separately reported), independently interpreting results (not separately reported), communicating results to the patient/family/caregiver, and care coordination (not separately reported). Electronically Signed: Prince Uribe MD June 09, 2024 [facility] 06-09-2024 History of Present illness Narrative (Elements copied from my note dated , have been reviewed and updated where appropriate, and all reflect current assessment and medical decision making from today's encounter, June 09, 2024) HISTORY OF PRESENT ILLNESS: Rosalinda Russo is a 53 year old female referred from ER with WBC 380K. Feels well, no fevers, active. Was in ER with chest pains, atypical, work up for this negative. Detailed review of labs Here for follow up, on Gleevec since Apr 14, 2023. Switched to dasatinib October 2023 due to persistent transcript Here for follow up, feels well, reviewed labs in detail, also NCCN guidelines. 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 Continue dasatinib. PCR testing 3 months. Written and verbal health teaching given to patient, patient verbalizes understanding and agrees with treatment plan. PAST MEDICAL HISTORY Diagnosis Date Benign hypertension 09/03/2017 Hypothyroid Rosacea PAST SURGICAL HISTORY Procedure Laterality Date SECTION HX 01/2013 [facility] CHOLECYSTECTOMY 2009 [facility] HERNIA REPAIR HX 11/2013 [facility] LAPAROSCOPY REPAIR INCISIONAL HERNIA REDUCIBLE 07/[facility] FAMILY HISTORY Problem Relation Age of Onset Depression Mother Diabetes Father Cancer Father liver Hypertension Father Blood Clots Sister Hypertension Sister Alcohol abuse Sister Stroke Maternal Grandmother Blindness Maternal Grandmother Hypertension Maternal Grandmother Diabetes Maternal Grandmother Hypertension Maternal Grandfather Diabetes Maternal Grandfather Heart Attack Paternal Grandmother Hypertension Paternal Grandfather Stroke Paternal Grandfather Diabetes Paternal Grandfather Social History Tobacco Use Smoking status: Never Smokeless tobacco: Never Vaping Use Vaping status: Never Used Substance Use Topics Alcohol use: Not Currently Comment: rarely Drug use: No ALLERGIES: ALLERGIES No Known Allergies CURRENT OUTPATIENT MEDICATIONS: Azelaic Acid (FINACEA) 15 % gel Apply 1 application to affected area two times a day. dasatinib (SPRYCEL) 100 mg tablet Take 1 tablet (100 mg) by mouth once daily. amLODIPine (NORVASC) 2.5 mg tablet Take 1 tablet by mouth once daily. lisinopril-hydroCHLOROthiazide (ZESTORETIC) 20-12.5 mg per tablet Take 1 tablet by mouth once daily. buPROPion XL (WELLBUTRIN XL) 300 mg 24 hr tablet Take 1 tablet by mouth once daily. acetaminophen (TYLENOL EXTRA STRENGTH) 500 mg tablet Take 1,000 mg by mouth every 8 hours as needed. SYNTHROID 100 mcg tablet Take 1 tablet by mouth once daily. Take on empty stomach Cholecalciferol, Vitamin D3, 2,000 unit cap Take 1 tablet by mouth once daily. REVIEW OF SYSTEMS: GENERAL: No fever, night sweats, weight loss or malaise. All other reviewed and negative other than HPI. PHYSICAL EXAMINATION: VITAL SIGNS: BP 110/72 Pulse 62 Temp (Src) 99 (Temporal) Wt 162 lb 8 oz (73.7kg) SpO2 98% LMP 10/14/2023 GENERAL APPEARANCE: Well appearing, in no acute distress, alert and oriented x3, well-hydrated, well nourished. No splenomegaly I spent a total of 20 minutes on the date of the service which included preparing to see the patient, [id number] patient care, completing clinical documentation, obtaining and/or reviewing separately obtained history, counseling and educating the patient/family/caregiver, ordering medications, tests, or procedures, communicating with other HCPs (not separately reported), independently interpreting results (not separately reported), communicating results to the patient/family/caregiver, and care coordination (not separately reported). Electronically Signed: Prince Uribe MD June 09, 2024 documented in this encounter [facility] 05-09-2024 Telephone encounter Note Prescription Refill Information The patient has been identified by name and date of : Yes Caregiver verified no other encounters exist for this prescription request: Yes Caregiver confirmed with patient/requestor that no other refills are due, in the near future, with this provider at this time: Yes The last office visit in the department: 04/20/24 Does the patient have a future office visit with this provider/department: Yes 06/21/24 Requested Prescriptions Pending Prescriptions Disp Refills Azelaic Acid (FINACEA) 15 % gel 50 g 3 Sig: Apply 1 application to affected area two times a day. Anyi Crowe LPN May 09, 2024 2:[address] [facility] 05-09-2024 Miscellaneous Notes Prescription Refill Information The patient has been identified by name and date of : Yes Caregiver verified no other encounters exist for this prescription request: Yes Caregiver confirmed with patient/requestor that no other refills are due, in the near future, with this provider at this time: Yes The last office visit in the department: 04/20/24 Does the patient have a future office visit with this provider/department: Yes 06/21/24 Requested Prescriptions Pending Prescriptions Disp Refills Azelaic Acid (FINACEA) 15 % gel 50 g 3 Sig: Apply 1 application to affected area two times a day. Anyi Crowe LPN May 09, 2024 2:42 PM documented in this encounter [facility] 05-04-2024 Telephone encounter Note This link may help. Seems just as good and I have several patients on generic Sprycel. [email or web address] Marc Castillo DO [facility] Work Phone: 05-04-2024 Miscellaneous Notes This link may help. Seems just as good and I have several patients on generic Sprycel. [email or web address] Marc Castillo DO documented in this encounter [facility] 04-26-2024 Telephone encounter Note Per Dr. Uribe. Patient needs to follow up with PCP. Nadia Alba RN [facility] Work Phone: 04-26-[address] Uribe. Patient needs to follow up with PCP. Nadia Alba RN documented in this encounter [facility] 04-22-2024 Telephone encounter Note Patient notified of results and provider's instructions. Patient verbalizes understanding. Patient states that she will reach out to gynecology. If she can't be seen sooner then she will have provider place ultrasound order. Leesa Gann RN [facility] 04-22-2024 Miscellaneous Notes Patient notified of results and provider's instructions. Patient verbalizes understanding. Patient states that she will reach out to gynecology. If she can't be seen sooner then she will have provider place ultrasound order. Leesa Gann RN Left message to call office. 04/22/2024 9:17 AM No concerns in blood work that would result in her abnormal menses. She needs to see gynecology and if she would like, I could put in the Ultrasound as discussed in appointment. Thank you Judith Howell APRN.CNP documented in this encounter [facility] 04-22-2024 Telephone encounter Note Left message to call office. 04/22/2024 9:[address] [facility] 04-22-2024 Telephone encounter Note No concerns in blood work that would result in her abnormal menses. She needs to see gynecology and if she would like, I could put in the Ultrasound as discussed in appointment. Thank you Judith Howell APRN.CNP [facility] 04-20-2024 Note HNO ID: [id number] Author: JUDITH HOWELL APRN.CNP Service: ? Author Type: Nurse Practitioner Type: Progress Notes Filed: 04/20/2024 11:48 Note Text: CC: Patient presents with: Menstrual Problem: Irregular spotting, no regular periods for months HPI Rosalinda Russo is a 54 year old female who presents today for menstrual spotting. Started spotting 2 weeks ago without known cause. Last normal period was this past October. Mother menopause age unknown as she had a hysterectomy at a young age. Denies recent illness, fever, chills, abdominal pain, N/V/D, difficulty or pain urinating, vaginal drainage, new sexual partners, shortness of breath, chest pain, palpitation, dizziness, or weakness. Due for gynecology visit and vaginal exam. Current provider in [place] so may want to see a local provider. Does have history of hypothyroidism: Taking medication as ordered. Denies any abnormal change in weight or energy. REVIEW OF SYSTEMS See HPI PAST MEDICAL HISTORY 09/03/2017: Benign hypertension No date: Hypothyroid No date: Rosacea PAST SURGICAL HISTORY 01/2013: SECTION HX Comment: [facility]: CHOLECYSTECTOMY Comment: [facility]2013: HERNIA REPAIR HX [facility] [facility] 07/2013: LAPAROSCOPY REPAIR INCISIONAL HERNIA REDUCIBLE Comment: [facility] ALLERGIES Patient has no known allergies. MEDICATIONS dasatinib (SPRYCEL) 100 mg tablet Take 1 tablet (100 mg) by mouth once daily. amLODIPine (NORVASC) 2.5 mg tablet Take 1 tablet by mouth once daily. lisinopril-hydroCHLOROthiazide (ZESTORETIC) 20-12.5 mg per tablet Take 1 tablet by mouth once daily. buPROPion XL (WELLBUTRIN XL) 300 mg 24 hr tablet Take 1 tablet by mouth once daily. Azelaic Acid (FINACEA) 15 % gel Apply 1 application to affected area two times a day. acetaminophen (TYLENOL EXTRA STRENGTH) 500 mg tablet Take 1,000 mg by mouth every 8 hours as needed. SYNTHROID 100 mcg tablet Take 1 tablet by mouth once daily. Take on empty stomach Cholecalciferol, Vitamin D3, 2,000 unit cap Take 1 tablet by mouth once daily. FAMILY HISTORY Problem Relation Age of Onset Depression Mother Diabetes Father Cancer Father liver Hypertension Father Blood Clots Sister Hypertension Sister Alcohol abuse Sister Stroke Maternal Grandmother Blindness Maternal Grandmother Hypertension Maternal Grandmother Diabetes Maternal Grandmother Hypertension Maternal Grandfather Diabetes Maternal Grandfather Heart Attack Paternal Grandmother Hypertension Paternal Grandfather Stroke Paternal Grandfather Diabetes Paternal Grandfather Social History Tobacco Use Smoking status: Never Smokeless tobacco: Never Vaping Use Vaping status: Never Used Substance Use Topics Alcohol use: Not Currently Comment: rarely Drug use: No PHYSICAL EXAM BP 118/72 Pulse 84 Resp 16 Wt 72.8 kg (160 lb 7.9 oz) LMP 10/14/2023 (Approximate) SpO2 98% BMI 28.09 kg/m? General Appearance: well appearing, in no acute distress, alert Eyes: conjunctiva pink and moist, no icterus, sclera white, non-injected Lungs: Lungs clear to auscultation. No wheezing, rhonchi, rales. Heart: RRR without murmur, gallop, or rubs. No ectopy Abdomen: Abdomen soft, non-tender. Bowel sounds normal. No masses, organomegaly Health maintenance reviewed with patient: Depression Screening Never done Anxiety Screening Never done HIV Screening Never done Colorectal Cancer Screening Never done Mammogram Screening due on 03/05/2018 Cervical Cancer Screening due on 01/17/2022 Covid-19 Vaccine( season) due on 04/10/2024 Influenza Vaccine(1) due on 04/10/2024 DTaP,Tdap,Td Vaccine(2 - Td or Tdap) due on 12/16/2024 Hepatitis B Vaccine(1 of 3 - 19+ 3-dose series) due on 12/16/2024 Shingrix Vaccine(1 of 2) due on 12/16/2024 Pneumococcal Vaccine(1 of 2 - PCV) due on 12/16/2024 Annual PCP Team Chronic Disease Visit due on 12/16/2024 BP Controlled (<130/80) due on 03/01/2025 Diabetes Screening due on 03/01/2027 Lipid Screening due on 06/30/2028 Hepatitis C Screening Completed HPV Vaccine Aged Out DATA REVIEWED: No new labs ASSESSMENT/PLAN: 1. Abnormal menses - ICD9: 626.9, ICD10: N92.6 (primary diagnosis) Possible due to perimenopause but will further evaluate. If lab work normal/negative, then recommend US - HCG, QUALITATIVE, URINE - THYROID STIMULATING HORMONE - T4 FREE/FREE THYROXINE - T3, FREE - COMPLETE BLOOD COUNT AND DIFFERENTIAL - BASIC METABOLIC PANEL - CONSULT TO GYNECOLOGY 2. Acquired hypothyroidism - ICD9: 244.9, ICD10: E03.9 - Instructed patient on importance of taking on an empty stomach either first thing in the morning or at bedtime. - THYROID STIMULATING HORMONE - T4 FREE/FREE THYROXINE - T3, FREE Prescription instructions reviewed with patient as applicable. Potential red flag symptoms discus (more content not included)... [facility] 04-20-2024 History of Present illness Narrative CC: Patient presents with: Menstrual Problem: Irregular spotting, no regular periods for months HPI Rosalinda Russo is a 54 year old female who presents today for menstrual spotting. Started spotting 2 weeks ago without known cause. Last normal period was this past October. Mother menopause age unknown as she had a hysterectomy at a young age. Denies recent illness, fever, chills, abdominal pain, N/V/D, difficulty or pain urinating, vaginal drainage, new sexual partners, shortness of breath, chest pain, palpitation, dizziness, or weakness. Due for gynecology visit and vaginal exam. Current provider in [place] so may want to see a local provider. Does have history of hypothyroidism: Taking medication as ordered. Denies any abnormal change in weight or energy. REVIEW OF SYSTEMS See [facility] PAST MEDICAL HISTORY 09/03/2017: Benign hypertension No date: Hypothyroid No date: Rosacea PAST SURGICAL HISTORY 01/2013: SECTION HX Comment: [facility] 2009: CHOLECYSTECTOMY Comment: [facility] 11/2013: HERNIA REPAIR HX Comment: Dr Hurtado [facility] 07/2013: LAPAROSCOPY REPAIR INCISIONAL HERNIA REDUCIBLE Comment: [facility] ALLERGIES Patient has no known allergies. MEDICATIONS dasatinib (SPRYCEL) 100 mg tablet Take 1 tablet (100 mg) by mouth once daily. amLODIPine (NORVASC) 2.5 mg tablet Take 1 tablet by mouth once daily. lisinopril-hydroCHLOROthiazide (ZESTORETIC) 20-12.5 mg per tablet Take 1 tablet by mouth once daily. buPROPion XL (WELLBUTRIN XL) 300 mg 24 hr tablet Take 1 tablet by mouth once daily. Azelaic Acid (FINACEA) 15 % gel Apply 1 application to affected area two times a day. acetaminophen (TYLENOL EXTRA STRENGTH) 500 mg tablet Take 1,000 mg by mouth every 8 hours as needed. SYNTHROID 100 mcg tablet Take 1 tablet by mouth once daily. Take on empty stomach Cholecalciferol, Vitamin D3, 2,000 unit cap Take 1 tablet by mouth once daily. FAMILY HISTORY Problem Relation Age of Onset Depression Mother Diabetes Father Cancer Father liver Hypertension Father Blood Clots Sister Hypertension Sister Alcohol abuse Sister Stroke Maternal Grandmother Blindness Maternal Grandmother Hypertension Maternal Grandmother Diabetes Maternal Grandmother Hypertension Maternal Grandfather Diabetes Maternal Grandfather Heart Attack Paternal Grandmother Hypertension Paternal Grandfather Stroke Paternal Grandfather Diabetes Paternal Grandfather Social History Tobacco Use Smoking status: Never Smokeless tobacco: Never Vaping Use Vaping status: Never Used Substance Use Topics Alcohol use: Not Currently Comment: rarely Drug use: No PHYSICAL EXAM BP 118/72 Pulse 84 Resp 16 Wt 72.8 kg (160 lb 7.9 oz) LMP 10/14/2023 (Approximate) SpO2 98% BMI 28.09 kg/m General Appearance: well appearing, in no acute distress, alert Eyes: conjunctiva pink and moist, no icterus, sclera white, non-injected Lungs: Lungs clear to auscultation. No wheezing, rhonchi, rales. Heart: RRR without murmur, gallop, or rubs. No ectopy Abdomen: Abdomen soft, non-tender. Bowel sounds normal. No masses, organomegaly Health maintenance reviewed with patient: Depression Screening Never done Anxiety Screening Never done HIV Screening Never done Colorectal Cancer Screening Never done Mammogram Screening due on 03/05/2018 Cervical Cancer Screening due on 01/17/2022 Covid-19 Vaccine(2022- season) due on 04/10/2024 Influenza Vaccine(1) due on 04/10/2024 DTaP,Tdap,Td Vaccine(2 - Td or Tdap) due on 12/16/2024 Hepatitis B Vaccine(1 of 3 - 19+ 3-dose series) due on 12/16/2024 Shingrix Vaccine(1 of 2) due on 12/16/2024 Pneumococcal Vaccine(1 of 2 - PCV) due on 12/16/2024 Annual PCP Team Chronic Disease Visit due on 12/16/2024 BP Controlled (<130/80) due on 03/01/2025 Diabetes Screening due on 03/01/2027 Lipid Screening due on 06/30/2028 Hepatitis C Screening Completed HPV Vaccine Aged Out DATA REVIEWED: No new labs ASSESSMENT/PLAN: 1. Abnormal menses - ICD9: 626.9, ICD10: N92.6 (primary diagnosis) Possible due to perimenopause but will further evaluate. If lab work normal/negative, then recommend US - HCG, QUALITATIVE, URINE - THYROID STIMULATING HORMONE - T4 FREE/FREE THYROXINE - T3, FREE - COMPLETE BLOOD COUNT AND DIFFERENTIAL - BASIC METABOLIC PANEL - CONSULT TO GYNECOLOGY 2. Acquired hypothyroidism - ICD9: 244.9, ICD10: E03.9 - Instructed patient on importance of taking on an empty stomach either first thing in the morning or at bedtime. - THYROID STIMULATING HORMONE - T4 FREE/FREE THYROXINE - T3, FREE Prescription instructions reviewed with patient as applicable. Potential red flag symptoms discussed with the patient. Reviewed appropriate action plan to take if red flag symptoms occur. Patient agreeable to treatment plan. Judith Howell APRN.CNP documented in this encounter [facility] 03-01-2024 Note HNO ID: [id number] Author: PRINCE URIBE MD Service: ? Author Type: Physician Type: Progress Notes Filed: 03/01/2024 12:52 Note Text: (Elements copied from my note datedM2023 , have been reviewed and updated where appropriate, and all reflect current assessment and medical decision making from today's encounter, March 01, 2024) HISTORY OF PRESENT ILLNESS: Rosalinda Russo is a 53 year old female referred from ER with WBC 380K. Feels well, no fevers, active. Was in ER with chest pains, atypical, work up for this negative. Detailed review of labs Here for follow up, on Gleevec since Apr 14, 2023. Switched to dasatinib October 2023 due to persistent transcript Here for follow up, feels well, reviewed labs in detail, also NCCN guidelines. 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 Continue dasatinib. PCR testing 3 months. Written and verbal health teaching given to patient, patient verbalizes understanding and agrees with treatment plan. PAST MEDICAL HISTORY Diagnosis Date Benign hypertension 09/03/2017 Hypothyroid Rosacea PAST SURGICAL HISTORY Procedure Laterality Date SECTION HX 01/2013 [facility] CHOLECYSTECTOMY 2009 [facility] HERNIA REPAIR HX 11/2013 Dr Hurtado [facility] LAPAROSCOPY REPAIR INCISIONAL HERNIA REDUCIBLE 07/2013 [facility] FAMILY HISTORY Problem Relation Age of Onset Depression Mother Diabetes Father Cancer Father liver Hypertension Father Blood Clots Sister Hypertension Sister Alcohol abuse Sister Stroke Maternal Grandmother Blindness Maternal Grandmother Hypertension Maternal Grandmother Diabetes Maternal Grandmother Hypertension Maternal Grandfather Diabetes Maternal Grandfather Heart Attack Paternal Grandmother Hypertension Paternal Grandfather Stroke Paternal Grandfather Diabetes Paternal Grandfather Social History Tobacco Use Smoking status: Never Smokeless tobacco: Never Vaping Use Vaping Use: Never used Substance Use Topics Alcohol use: Not Currently Comment: rarely Drug use: No ALLERGIES: ALLERGIES No Known Allergies CURRENT OUTPATIENT MEDICATIONS: dasatinib (SPRYCEL) 100 mg tablet Take 1 tablet (100 mg) by mouth once daily. amLODIPine (NORVASC) 2.5 mg tablet Take 1 tablet by mouth once daily. lisinopril-hydroCHLOROthiazide (ZESTORETIC) 20-12.5 mg per tablet Take 1 tablet by mouth once daily. buPROPion XL (WELLBUTRIN XL) 300 mg 24 hr tablet Take 1 tablet by mouth once daily. Azelaic Acid (FINACEA) 15 % gel Apply 1 application to affected area two times a day. acetaminophen (TYLENOL EXTRA STRENGTH) 500 mg tablet Take 1,000 mg by mouth every 8 hours as needed. SYNTHROID 100 mcg tablet Take 1 tablet by mouth once daily. Take on empty stomach Cholecalciferol, Vitamin D3, 2,000 unit cap Take 1 tablet by mouth once daily. potassium chloride (K-TAB) 10 mEq tablet Take 1 tablet by mouth daily with breakfast. cyanocobalamin (VITAMIN B-12) 1,000 mcg tab Take 1 tablet by mouth once daily. REVIEW OF SYSTEMS: GENERAL: No fever, night sweats, weight loss or malaise. All other reviewed and negative other than HPI. PHYSICAL EXAMINATION: VITAL SIGNS: BP 120/73 Pulse 79 Temp (Src) 98.7 (Oral) Wt 161 lb 8 oz (73.3kg) SpO2 97% LMP 10/14/2023 GENERAL APPEARANCE: Well appearing, in no acute distress, alert and oriented x3, well-hydrated, well nourished. No splenomegaly HEART: Reg no gallops LUNGS: CTA I spent a total of 30 minutes on the date of the service which included preparing to see the patient, [id number] patient care, completing clinical documentation, obtaining and/or reviewing separately obtained history, counseling and educating the patient/family/caregiver, ordering medications, tests, or procedures, communicating with other HCPs (not separately reported), independently interpreting results (not separately reported), communicating results to the patient/family/caregiver, and care coordination (not separately reported). 45 Electronically Signed: Prince Uribe MD March 01, 2024 [facility] 03-01-2024 History of Present illness Narrative (Elements copied from my note 2023 , have been reviewed and updated where appropriate, and all reflect current assessment and medical decision making from today's encounter, March 01, 2024) HISTORY OF PRESENT ILLNESS: Rosalinda Russo is a 53 year old female referred from ER with WBC 380K. Feels well, no fevers, active. Was in ER with chest pains, atypical, work up for this negative. Detailed review of labs Here for follow up, on Gleevec since Apr 14, 2023. Switched to dasatinib October 2023 due to persistent transcript Here for follow up, feels well, reviewed labs in detail, also NCCN guidelines. 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 Continue dasatinib. PCR testing 3 months. Written and verbal health teaching given to patient, patient verbalizes understanding and agrees with treatment plan. PAST MEDICAL HISTORY Diagnosis Date Benign hypertension 09/03/2017 Hypothyroid Rosacea PAST SURGICAL HISTORY Procedure Laterality Date SECTION HX 01/2013 [facility] CHOLECYSTECTOMY 2009 [facility] HERNIA REPAIR HX 11/2013 Dr Hurtado [facility] LAPAROSCOPY REPAIR INCISIONAL HERNIA REDUCIBLE 07/2013 [facility] FAMILY HISTORY Problem Relation Age of Onset Depression Mother Diabetes Father Cancer Father liver Hypertension Father Blood Clots Sister Hypertension Sister Alcohol abuse Sister Stroke Maternal Grandmother Blindness Maternal Grandmother Hypertension Maternal Grandmother Diabetes Maternal Grandmother Hypertension Maternal Grandfather Diabetes Maternal Grandfather Heart Attack Paternal Grandmother Hypertension Paternal Grandfather Stroke Paternal Grandfather Diabetes Paternal Grandfather Social History Tobacco Use Smoking status: Never Smokeless tobacco: Never Vaping Use Vaping Use: Never used Substance Use Topics Alcohol use: Not Currently Comment: rarely Drug use: No ALLERGIES: ALLERGIES No Known Allergies CURRENT OUTPATIENT MEDICATIONS: dasatinib (SPRYCEL) 100 mg tablet Take 1 tablet (100 mg) by mouth once daily. amLODIPine (NORVASC) 2.5 mg tablet Take 1 tablet by mouth once daily. lisinopril-hydroCHLOROthiazide (ZESTORETIC) 20-12.5 mg per tablet Take 1 tablet by mouth once daily. buPROPion XL (WELLBUTRIN XL) 300 mg 24 hr tablet Take 1 tablet by mouth once daily. Azelaic Acid (FINACEA) 15 % gel Apply 1 application to affected area two times a day. acetaminophen (TYLENOL EXTRA STRENGTH) 500 mg tablet Take 1,000 mg by mouth every 8 hours as needed. SYNTHROID 100 mcg tablet Take 1 tablet by mouth once daily. Take on empty stomach Cholecalciferol, Vitamin D3, 2,000 unit cap Take 1 tablet by mouth once daily. potassium chloride (K-TAB) 10 mEq tablet Take 1 tablet by mouth daily with breakfast. cyanocobalamin (VITAMIN B-12) 1,000 mcg tab Take 1 tablet by mouth once daily. REVIEW OF SYSTEMS: GENERAL: No fever, night sweats, weight loss or malaise. All other reviewed and negative other than HPI. PHYSICAL EXAMINATION: VITAL SIGNS: BP 120/73 Pulse 79 Temp (Src) 98.7 (Oral) Wt 161 lb 8 oz (73.3kg) SpO2 97% LMP 10/14/2023 GENERAL APPEARANCE: Well appearing, in no acute distress, alert and oriented x3, well-hydrated, well nourished. No splenomegaly HEART: Reg no gallops LUNGS: CTA I spent a total of 30 minutes on the date of the service which included preparing to see the patient, [id number] patient care, completing clinical documentation, obtaining and/or reviewing separately obtained history, counseling and educating the patient/family/caregiver, ordering medications, tests, or procedures, communicating with other HCPs (not separately reported), independently interpreting results (not separately reported), communicating results to the patient/family/caregiver, and care coordination (not separately reported). 45 Electronically Signed: Prince Uribe MD March 01, 2024 documented in this encounter [facility] 02-25-2024 Telephone encounter Note Pt called and is notified of providers message and instructions. Pt voices understanding. Maria Del Rosario Coleman RN [facility] 02-25-2024 Miscellaneous Notes Pt called and is notified of providers message and instructions. Pt voices understanding. Maria Del Rosario Coleman RN Continue to hold and we will discuss rechecking level at next appointment. Thank you Judith Howell APRN.CNP Pt called and is notified of providers results and question. Pt voices understanding and states she stopped taking the B12 when she saw that he level was high. She said she last took it Thursday02/22/24. Maria Del Rosario Coleman RN Vit B12 is high. Is she still taking 1000mcg once daily? Thank you Judith Howell APRN.CNP documented in this encounter [facility] 02-25-2024 Telephone encounter Note Continue to hold and we will discuss rechecking level at next appointment. Thank you Judith Howell APRN.CNP [facility] 02-25-2024 Telephone encounter Note Pt called and is notified of providers results and question. Pt voices understanding and states she stopped taking the B12 when she saw that he level was high. She said she last took it Thursday02/22/24. Maria Del Rosario Coleman, RN [facility] 02-25-2024 Telephone encounter Note Vit B12 is high. Is she still taking 1000mcg once daily? Thank you Judith Howell APRN.[facility] 12-23-2023 History of Present illness Narrative Elements copied from Dr. Uribe's note dated 10/26, have been reviewed and updated where appropriate, and all reflect current assessment and medical decision making during today's encounter. HISTORY OF PRESENT ILLNESS: Rosalinda Russo is a 53 year old female who was referred from ER with WBC 380K. [place] well, no fevers, active. Was in ER with chest pains, atypical, work up for this negative. Started on Gleevec Apr 14, 2023. Changed to dasatinib--began 11/25/2023. Interim history: Tolerating Sprycel well. No cough or shortness of breath. No unusual bleeding or unexplained bruising. 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 -Recheck CBC in a month. 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 Followed by office visit in about 2 months. PAST MEDICAL HISTORY Diagnosis Date Benign hypertension 09/03/2017 Hypothyroid Rosacea PAST SURGICAL HISTORY Procedure Laterality Date SECTION HX 01/2013 [facility] CHOLECYSTECTOMY 2009 [facility] HERNIA REPAIR HX 11/[facility] FAMILY HISTORY Problem Relation Age of Onset Depression Mother Diabetes Father Cancer Father liver Hypertension Father Blood Clots Sister Hypertension Sister Alcohol abuse Sister Stroke Maternal Grandmother Blindness Maternal Grandmother Hypertension Maternal Grandmother Diabetes Maternal Grandmother Hypertension Maternal Grandfather Diabetes Maternal Grandfather Heart Attack Paternal Grandmother Hypertension Paternal Grandfather Stroke Paternal Grandfather Diabetes Paternal Grandfather Social History Tobacco Use Smoking status: Never Smokeless tobacco: Never Vaping Use Vaping Use: Never used Substance Use Topics Alcohol use: Yes Comment: rarely Drug use: No ALLERGIES: ALLERGIES No Known Allergies CURRENT OUTPATIENT MEDICATIONS: potassium chloride (K-TAB) 10 mEq tablet Take 1 tablet by mouth daily with breakfast. dasatinib (SPRYCEL) 100 mg tablet Take 1 tablet (100 mg) by mouth once daily. amLODIPine (NORVASC) 2.5 mg tablet Take 1 tablet by mouth once daily. lisinopril-hydroCHLOROthiazide (ZESTORETIC) 20-12.5 mg per tablet Take 1 tablet by mouth once daily. buPROPion XL (WELLBUTRIN XL) 300 mg 24 hr tablet Take 1 tablet by mouth once daily. Azelaic Acid (FINACEA) 15 % gel Apply 1 application to affected area two times a day. acetaminophen (TYLENOL EXTRA STRENGTH) 500 mg tablet Take 1,000 mg by mouth every 8 hours as needed. SYNTHROID 100 mcg tablet Take 1 tablet by mouth once daily. Take on empty stomach cyanocobalamin (VITAMIN B-12) 1,000 mcg tab Take 1 tablet by mouth once daily. Cholecalciferol, Vitamin D3, 2,000 unit cap Take 1 tablet by mouth once daily. REVIEW OF SYSTEMS: GENERAL: No fever, night sweats, weight loss or malaise. All other reviewed and negative other than HPI. PHYSICAL EXAMINATION: VITAL SIGNS: BP 114/74 Pulse 74 Temp (Src) 98.1 (Temporal) Wt 161 lb 8 oz (73.3kg) SpO2 99% LMP 10/14/2023 GENERAL APPEARANCE: Well appearing, in no acute distress, alert and oriented x3, well-hydrated, well nourished. No splenomegaly HEART: Reg no gallops LUNGS: CTA I spent a total of 20 minutes on the date of the service which included preparing to see the patient, [id number] patient care, completing clinical documentation, obtaining and/or reviewing separately obtained history, performing a medically appropriate examination, counseling and educating the patient/family/caregiver, communicating with other HCPs (not separately reported), and communicating results to the patient/family/caregiver. Marc Castillo DO documented in this encounter [facility] 12-17-2023 History of Present illness Narrative Radiology Service Progress Note PATIENT NAME: Rosalinda Russo DATE OF SERVICE: December 17, 2023 TIME: 11:17 AM PATIENT IDENTITY VERIFICATION COMPLETED USING TWO (2) IDENTIFIERS: Name and Date of confirmed by patient verbally. FALL SCREENING: Has the patient had 2 falls in the last year or 1 fall with injury or currently using an Ambulatory Assistive Device (Walker, Cane, Wheelchair, Crutches, etc.)? No PATIENT GENDER DATA: Female. status: : No status: NO. PATIENT RELEVANT IMPLANT DATA REVIEWED: Not Applicable PATIENT PRESENTS WITH AN IMPLANTABLE OR ATTACHED REEL AND REWINDER OPERATOR: No RADIOLOGY DEPARTMENT: General X-ray: Exam(s) Completed: Pelvis X-Ray: Pelvis with Hip Left PERIPHERAL IV DATA: Not applicable SIGNED BY: RT Courtney(R) December 17, 2023 11:17 AM documented in this encounter [facility] 12-17-2023 History of Present illness Narrative CC: Patient presents with: F/U 3 Month HPI Rosalinda Russo is a 53 year old female who presents today for routine follow up. HTN: Ms. Russo indicates that she is feeling well and denies any symptoms referable to elevated blood pressure. Specifically denies headache, chest pain, palpitations, dyspnea, and peripheral edema. Patient denies any side effects of her medication(s) and is compliant with their regimen. She does check BP's away from this office with average BP's in the 110s/70s range. Rosalinda works out regularly 5 times per week with stationary bicycling. She watches her diet for sodium, low fat and low cholesterol most of the time. Last 3 Encounter BP Readings: Date: BP: 12/17/2023 103/70 10/27/2023 115/77 09/18/2023 112/78 Anxiety and Depression: Feels controlled on current treatment Sleep: is described as normal for patient Alcohol use: does not drink any alcohol Drug use: No Appetite: good Suicidal Thoughts: No suicidal ideation, intent or plan Leukemia: Medication changed about 1 month ago by hematology. Has had some pain and concerns she thinks started before switching treatments. Started with numbness and tingling to left hand prior to recent medication change a few months ago. It is not constant but if she touches her fingertip it feels decreased but is more noticeable at night. Denies edema, loss of ROM, or weakness. Also with pain in left hip since last medication. Pain to left hip is achy that worsens when she first stands up. Also feels stiff. Denies any known injury, edema, redness, fever, weakness, falls, or loss of sensation. REVIEW OF SYSTEMS See HPI PAST MEDICAL HISTORY Diagnosis Date Benign hypertension 09/03/2017 Hypothyroid Rosacea PAST SURGICAL HISTORY Procedure Laterality Date SECTION HX 01/2013 [facility] CHOLECYSTECTOMY 2009 [facility] HERNIA REPAIR HX 11/2013 Dr [facility] LAPAROSCOPY REPAIR INCISIONAL HERNIA REDUCIBLE 07/2013 [facility] ALLERGIES Patient has no known allergies. MEDICATIONS dasatinib (SPRYCEL) 100 mg tablet Take 1 tablet (100 mg) by mouth once daily. amLODIPine (NORVASC) 2.5 mg tablet Take 1 tablet by mouth once daily. lisinopril-hydroCHLOROthiazide (ZESTORETIC) 20-12.5 mg per tablet Take 1 tablet by mouth once daily. buPROPion XL (WELLBUTRIN XL) 300 mg 24 hr tablet Take 1 tablet by mouth once daily. Azelaic Acid (FINACEA) 15 % gel Apply 1 application to affected area two times a day. acetaminophen (TYLENOL EXTRA STRENGTH) 500 mg tablet Take 1,000 mg by mouth every 8 hours as needed. SYNTHROID 100 mcg tablet Take 1 tablet by mouth once daily. Take on empty stomach cyanocobalamin (VITAMIN B-12) 1,000 mcg tab Take 1 tablet by mouth once daily. Cholecalciferol, Vitamin D3, 2,000 unit cap Take 1 tablet by mouth once daily. FAMILY HISTORY Problem Relation Age of Onset Depression Mother Diabetes Father Cancer Father liver Hypertension Father Blood Clots Sister Hypertension Sister Alcohol abuse Sister Stroke Maternal Grandmother Blindness Maternal Grandmother Hypertension Maternal Grandmother Diabetes Maternal Grandmother Hypertension Maternal Grandfather Diabetes Maternal Grandfather Heart Attack Paternal Grandmother Hypertension Paternal Grandfather Stroke Paternal Grandfather Diabetes Paternal Grandfather Social History Tobacco Use Smoking status: Never Smokeless tobacco: Never Vaping Use Vaping Use: Never used Substance Use Topics Alcohol use: Yes Comment: rarely Drug use: No PHYSICAL EXAM BP 103/70 Pulse 65 Resp 16 Wt 73.5 kg (162 lb) LMP 10/14/2023 (Approximate) SpO2 100% BMI 28.35 kg/m General Appearance: well appearing, in no acute distress, alert Pysch: mood and affect broad and appropriate Eyes: conjunctiva pink and moist, no icterus, sclera white, non-injected Lungs: Lungs clear to auscultation. No wheezing, rhonchi, rales. Heart: RRR without murmur, gallop, or rubs. No ectopy Extremities: No deformities, edema, skin discoloration, clubbing or cyanosis. Good capillary refill. Neurological: Gait normal. Reflexes normal and symmetric. Sensation intact. Left hip with full ROM without pain or difficulty tenderness reported to left pelvic bone region. Health maintenance reviewed with patient: Pneumococcal Vaccine(1 of 2 - PCV) Never done HIV Screening Never done Hepatitis B Vaccine(1 of 3 - 19+ 3-dose series) Never done Shingrix Vaccine(1 of 2) Never done HPV Testing Never done Colorectal Cancer Screening Never done Mammogram Screening due on 03/05/2018 DTaP,Tdap,Td Vaccine(2 - Td or Tdap) due on 05/01/2021 Covid-19 Vaccine( season) due on 08/17/2024 Influenza Vaccine(Season Ended) due on 04/10/2024 Annual PCP Team Chronic Disease Visit due on 09/18/2024 BP Controlled (<130/80) due on 10/26/2024 Pap Testing due on 01/17/2026 Diabetes Screening due on 12/14/2026 Lipid Screening due on 06/30/2028 Behavioral Health Screening Completed Hepatitis C Screening Completed DATA REVIEWED: No new labs ASSESSMENT/PLAN: 1. Benign hypertension - ICD9: 401.1, ICD10: I10 (primary diagnosis) - Controlled - low end of normal in office but well controlled readings at home - Continue current medications - Recommend home blood pressure monitoring, to bring results to next visit - Encouraged sodium restriction, DASH or Mediterranean diet - Recommend regular aerobic exercise 2. Left hip pain - ICD9: 719.45, ICD10: M25.552 With the tenderness needs further evaluated. Possible result of underlying arthritis but with leukemia treatment need to evaluate for any possible avascular necrosis or other concern - XR HIP GENERAL 3V PELV/AP/LAT LEFT 3. Anxiety and depression - ICD9: 300.00, 311, ICD10: F41.9, F32.A Controlled at this time - Reviewed concept of neurochemical imbalance wth depression/anxiety, treatment options and benefits of counseling in combination with medication. Also reviewed benefits of sleep hygeine, diet and exercise - Instructed patient to contact office or [id number] after-hours promptly should condition worsen or any new symptoms appear. - Counseling Center [facility] and after hours crisis line 4. Numbness and tingling - ICD9: 782.0, ICD10: R20.0, R20.2 - possible result of treatment, needs to discuss with oncologist at upcoming visit but will evaluate for other cause as well. - THYROID STIMULATING HORMONE - T4 FREE/FREE THYROXINE - VITAMIN B12 5. Acquired hypothyroidism - ICD9: 244.9, ICD10: E03.9 - not discussed today but after appointment realized this has not been evaluated recently. Needs checked - THYROID STIMULATING HORMONE - T4 FREE/FREE THYROXINE 6. CML (chronic myelocytic leukemia) (HCC) - ICD9: 205.10, ICD10: C92.10 Continue with recommendations by oncology/hematology 7. Eye exam, routine - ICD9: V72.0, ICD10: Z01.00 - patient wanting routine eye exam completed through [facility] - CONSULT TO OPHTHALMOLOGY Prescription instructions reviewed with patient as applicable. Potential red flag symptoms discussed with the patient. Reviewed appropriate action plan to take if red flag symptoms occur. Patient agreeable to treatment plan. Judith Howell APRN.CNP documented in this encounter [facility] 12-04-2023 Telephone encounter Note Patient started/will start taking Sprycel on 11/25/23. ORAL ANTI-CANCER AGENTS FOLLOW-UP PHONE CALL/VISIT Patient identified by name and date of . YES Patient is on day 10 of Sprycel for Chronic Myelogenous Leukemia (CML). SYMPTOM ASSESSMENT Headache: No Visual Changes: No Dizziness: No Do you have any periods of confusion? No Mood changes: No Mouth or throat pain: No Appetite: no changes in appetite, appetite good States upset stomach for a few days after she started but has since resolved. Taste changes: No Nausea: No Vomiting: No Heartburn: No. Weight gain/loss: Unable to assess Episodes of palpitations/chest discomfort/pressure/pain No Shortness of breath: No Cough: No Diarrhea: no Constipation: no Bladder/Urinary Changes: None Pain: Body aches all over but mainly in legs and viral notices in the am after she gets up. Not keeping her from doing things and has not needed to take anything for the pain. Fever: No Chills: No Cold sensitivity: No Numbness/weakness: No Edema: No Skin changes: No Itching: No Yellowing of skin or eyes: No Musculoskeletal/joint changes/issues No Bleeding issues: No Activity Level (0-100%): same as baseline, states I am going a little slower but continuing with my normal routine. She continues to bike 3x a week Had labs on 12/01/23, reviewed. Advised increasing potassium in her diet. She states she saw the results and has bought some bananas to eat. Does the patient need interventions or same day appointment:No ADDITIONAL FOLLOW UP: The next outreach call is due on: as needed and was scheduled No, appointment made The following lab tests are due: 12/15/23 Verified patient is aware of next appointment in the cancer center: Yes. Verified patient verbalized how to correctly refill the oral agent prescription. Yes Does the patient have any financial difficulties affording this medication? No Patient verbalizes understanding of when to seek Medical Attention? YES Patient verbalizes understanding of after-hours and weekend phone number? YES Patient verbalized importance of medication compliance in taking the oral agent as prescribed. Patient instructed to call if unable to comply. Annie Alba RN [facility] Work Phone: 12-04-2023 Miscellaneous Notes Patient started/will start taking Sprycel on 11/25/23. ORAL ANTI-CANCER AGENTS FOLLOW-UP PHONE CALL/VISIT Patient identified by name and date of . YES Patient is on day 10 of Sprycel for Chronic Myelogenous Leukemia (CML). SYMPTOM ASSESSMENT Headache: No Visual Changes: No Dizziness: No Do you have any periods of confusion? No Mood changes: No Mouth or throat pain: No Appetite: no changes in appetite, appetite good States upset stomach for a few days after she started but has since resolved. Taste changes: No Nausea: No Vomiting: No Heartburn: No. Weight gain/loss: Unable to assess Episodes of palpitations/chest discomfort/pressure/pain No Shortness of breath: No Cough: No Diarrhea: no Constipation: no Bladder/Urinary Changes: None Pain: Body aches all over but mainly in legs and viral notices in the am after she gets up. Not keeping her from doing things and has not needed to take anything for the pain. Fever: No Chills: No Cold sensitivity: No Numbness/weakness: No Edema: No Skin changes: No Itching: No Yellowing of skin or eyes: No Musculoskeletal/joint changes/issues No Bleeding issues: No Activity Level (0-100%): same as baseline, states I am going a little slower but continuing with my normal routine. She continues to bike 3x a week Had labs on 12/01/23, reviewed. Advised increasing potassium in her diet. She states she saw the results and has bought some bananas to eat. Does the patient need interventions or same day appointment:No ADDITIONAL FOLLOW UP: The next outreach call is due on: as needed and was scheduled No, appointment made The following lab tests are due: 12/15/23 Verified patient is aware of next appointment in the cancer center: Yes. Verified patient verbalized how to correctly refill the oral agent prescription. Yes Does the patient have any financial difficulties affording this medication? No Patient verbalizes understanding of when to seek Medical Attention? YES Patient verbalizes understanding of after-hours and weekend phone number? YES Patient verbalized importance of medication compliance in taking the oral agent as prescribed. Patient instructed to call if unable to comply. Annie Alba RN ORAL ANTI-CANCER AGENTS EDUCATION patient called today for oral medication education of Spycel for Chronic Myelogenous Leukemia (CML) READINESS TO LEARN Cognitive Ability: Alert and oriented Motivation to Learn: Interested Family Support: Unable to assess - Family not present Instruction Provided to: Patient Patient learns best by: Multiple Methods Factors affecting learning: None Physical limitation affecting learning: None SANDRA ASSESSMENT: 1.) Verified that patient knows that the oral agents are for cancer and are taken by mouth. Yes 2.) Medication review completed during visit. Yes No 3.) Patient is able to swallow pills. Yes 4.) Patient is able to read the drug label/information. Yes 5.) Patient is able to open the medication bottles and packages. Yes 6.) Has patient taken other pills for cancer? YES, please explain: Gleevec 7.) Is patient experiencing any symptoms that would affect their ability to keep down pills, for example nausea or vomiting? No 8.) Verified that patient understands prescription delivery, benefit investigation and refill process. Yes DRUG-SPECIFIC EDUCATION: 1.) Verified patient knows the drug name. Yes 2.) Verified patient understands the dose and schedule of oral anti cancer agent. Yes 3.) Verified patient knows what to do if a medication dose is missed. Yes 4.) Verified patient understands where to store the drug. Yes 5.) Verified patient understands potential side effects and how to manage them. Yes 6.)Verified patient understands handling precautions of oral anti cancer agent. Yes 7.) Verified patient was given written instructions and understands when and whom to call with questions. Yes 8.) Verified patient understands where and how to return drug. Yes 9.) Verified patient received drug specific adult education handout and neutropenic wallet card Yes No EVALUATE: The patient demonstrated an understanding of all the above education using the teach-back method. Yes Instructed to call us with any questions, concerns, and/or unresolved symptoms. Will continue to follow up and provide reinforcement of teaching topics as needed. Annie Alba RN documented in this encounter [facility] 12-04-2023 Telephone encounter Note ORAL ANTI-CANCER AGENTS EDUCATION patient called today for oral medication education of Spycel for Chronic Myelogenous Leukemia (CML) READINESS TO LEARN Cognitive Ability: Alert and oriented Motivation to Learn: Interested Family Support: Unable to assess - Family not present Instruction Provided to: Patient Patient learns best by: Multiple Methods Factors affecting learning: None Physical limitation affecting learning: None SANDRA ASSESSMENT: 1.) Verified that patient knows that the oral agents are for cancer and are taken by mouth. Yes 2.) Medication review completed during visit. Yes No 3.) Patient is able to swallow pills. Yes 4.) Patient is able to read the drug label/information. Yes 5.) Patient is able to open the medication bottles and packages. Yes 6.) Has patient taken other pills for cancer? YES, please explain: Gleevec 7.) Is patient experiencing any symptoms that would affect their ability to keep down pills, for example nausea or vomiting? No 8.) Verified that patient understands prescription delivery, benefit investigation and refill process. Yes DRUG-SPECIFIC EDUCATION: 1.) Verified patient knows the drug name. Yes 2.) Verified patient understands the dose and schedule of oral anti cancer agent. Yes 3.) Verified patient knows what to do if a medication dose is missed. Yes 4.) Verified patient understands where to store the drug. Yes 5.) Verified patient understands potential side effects and how to manage them. Yes 6.)Verified patient understands handling precautions of oral anti cancer agent. Yes 7.) Verified patient was given written instructions and understands when and whom to call with questions. Yes 8.) Verified patient understands where and how to return drug. Yes 9.) Verified patient received drug specific adult education handout and neutropenic wallet card Yes No EVALUATE: The patient demonstrated an understanding of all the above education using the teach-back method. Yes Instructed to call us with any questions, concerns, and/or unresolved symptoms. Will continue to follow up and provide reinforcement of teaching topics as needed. Annie Alba, RN [facility] 11-23-2023 Miscellaneous Notes Patients scheduled adjusted and mychart message sent. Manda Yun PSS: please reschedule tomorrow appointment for 1 month out (around 12/22/23) Patient needs CBC/CMP every 2 weeks for 2months. She would like to have those draw Tues. Nadia Alba, RN documented in this encounter [facility] 11-23-2023 Miscellaneous Notes Cody approval received. Approved from 10/23/2023 to 06/23/2024. Approval faxed to specialty pharmacy. Patient notified. Yessy Trejo LPN I was able to speak with the lab pathologist at [facility] last night and I requested a letter stating that the 3 specific mutations were included/tested in the BCR/ABL kinase domain. I received the letter this morning and have faxed that plus Dr. Uribe's letter of appeal to the insurance company. Awaiting decision. Watsi message sent to update patient on progress. Yessy Trejo LPN [facility] lab fellow called stating they do not have the capability to amend the report to show every specific mutation tested. The test spans ABL1 codons 46-542 and detects essentially ALL clinically actionable BCR-ABL1 kinase domain mutations, including [id number]. Dr. Uribe- you will need to write an appeal letter to try to get this approved. Yessy Trejo LPN Received VM message from Harman CHARLES stating I needed to contact the send out lab at [facility]. I spoke with Dr. Candace Ayers, , she will contact [facility] to facilitate obtaining a detailed report. Reference #[id number]. Yessy Trejo LPN Correspondence received from [facility] requiring additional in-depth lab results. Contacted Harman at [facility] lab , to inquire about additional information. He will contact the send out lab at [facility] and ask that [facility]'s lab look into additional information for specific mutations: T315I/A, F317L/V/I/C and V299L. Will fax results to the office or contact this nurse for any issues. Reference #[id number] Yessy Trejo LPN Labs resulted and faxed to [facility]. Awaiting decision. Yessy Trejo LPN Cover my meds [place] Auth form completed and sent to [facility] Spec. Pharm. Received call from Michelle requesting pathology report. Pathology faxed, only have 1 page, not sure it contains info they are looking for. Contacted pt. To see if possible pathology anywhere else. Informed there is not. Awaiting decision for Prior Auth# [id number] Gilda Sparks LPN Dr. Uribe note from today completed and signed. Nadia Alba, LOAN Office notes 10/27/2023 state: Here for follow up, on Gleevec since Apr 14, 2023. Tolerating well, no side effects to report. Labs reviewed. Received request for Prior Authorization on Sprycel 100 mg tablet from [facility] specialty pharmacy . They are requesting office notes. And Diagnosis. Don't think this is going to work. Need notes to be updated so Specialty pharmacy can start processing. Gilda Sparks LPN documented in this encounter [facility] 11-03-2023 Miscellaneous Notes No. Lab range for CO2 is 22 - 30 mmol/L. Her last was 29. No concerns. documented in this encounter [facility] 10-30-2023 Miscellaneous Notes Call to patient, questions answered. She is still taking Gleevec and will have labs on , 11/03/23. Nadia Alba RN documented in this encounter [facility] 10-28-2023 Miscellaneous Notes The below requested appointment has been scheduled and the lab orders have been attached. Joana Hansen Pss PSS- please schedule patient for a lab appointment for a BCR/ABL1 KINASE DOMAIN 10/29/2023 @ 8:30. Patient is aware of appointment date and time. Please make sure the specific lab is noted in the appointment notes and attached to the appointment. Yessy Trejo LPN This is the lab that the insurance is requiring the patient complete before approving the Sprycel. Please sign the order. Yessy Trejo LPN documented in this encounter [facility] 10-27-2023 History of Present illness Narrative (Elements copied from my note dated July 22, 2023, have been reviewed and updated where appropriate, and all reflect current assessment and medical decision making from today's encounter, October 27, 2023) HISTORY OF PRESENT ILLNESS: Rosalinda Russo is a 53 year old female referred from ER with WBC 380K. Feels well, no fevers, active. Was in ER with chest pains, atypical, work up for this negative. Detailed review of labs Here for follow up, on Gleevec since Apr 14, 2023. Tolerating well, no side effects to report. Labs reviewed. CLINICAL IMPRESSION: CML chronic phase Currently in hematologic remission PCR remains positive RECOMMENDATION/PLAN: 1. Switch from gleevec to dasatinib, info given, cbc and cmp every 2 weeks for 2 months, see back 1 month to assess tolerance of dasatinib 2. PCR testing 3 months, checking for p190 and 210 variants as both present on initial testing (small p190 component likely there due to high volume disease). Written and verbal health teaching given to patient, patient verbalizes understanding and agrees with treatment plan. PAST MEDICAL HISTORY Diagnosis Date Benign hypertension 09/03/2017 Hypothyroid Rosacea PAST SURGICAL HISTORY Procedure Laterality Date SECTION HX 01/2013 [facility] CHOLECYSTECTOMY 2009 [facility] HERNIA REPAIR HX 11/2013 Dr Hurtado [facility] LAPAROSCOPY REPAIR INCISIONAL HERNIA REDUCIBLE 07/2013 [facility] FAMILY HISTORY Problem Relation Age of Onset Depression Mother Diabetes Father Cancer Father liver Hypertension Father Blood Clots Sister Hypertension Sister Alcohol abuse Sister Stroke Maternal Grandmother Blindness Maternal Grandmother Hypertension Maternal Grandmother Diabetes Maternal Grandmother Hypertension Maternal Grandfather Diabetes Maternal Grandfather Heart Attack Paternal Grandmother Hypertension Paternal Grandfather Stroke Paternal Grandfather Diabetes Paternal Grandfather Social History Tobacco Use Smoking status: Never Smokeless tobacco: Never Vaping Use Vaping Use: Never used Substance Use Topics Alcohol use: Yes Comment: rarely Drug use: No ALLERGIES: ALLERGIES No Known Allergies CURRENT OUTPATIENT MEDICATIONS: amLODIPine (NORVASC) 2.5 mg tablet Take 1 tablet by mouth once daily. lisinopril-hydroCHLOROthiazide (ZESTORETIC) 20-12.5 mg per tablet Take 1 tablet by mouth once daily. buPROPion XL (WELLBUTRIN XL) 300 mg 24 hr tablet Take 1 tablet by mouth once daily. Azelaic Acid (FINACEA) 15 % gel Apply 1 application to affected area two times a day. acetaminophen (TYLENOL EXTRA STRENGTH) 500 mg tablet Take 1,000 mg by mouth every 8 hours as needed. SYNTHROID 100 mcg tablet Take 1 tablet by mouth once daily. Take on empty stomach imatinib (GLEEVEC) 400 mg tablet Take 1 tablet (400 mg) by mouth once daily. cyanocobalamin (VITAMIN B-12) 1,000 mcg tab Take 1 tablet by mouth once daily. Cholecalciferol, Vitamin D3, 2,000 unit cap Take 1 tablet by mouth once daily. REVIEW OF SYSTEMS: GENERAL: No fever, night sweats, weight loss or malaise. All other reviewed and negative other than HPI. PHYSICAL EXAMINATION: VITAL SIGNS: BP 115/77 Pulse 71 Temp (Src) 98.7 (Temporal) Wt 161 lb (73.0kg) SpO2 100% LMP 08/11/2017 GENERAL APPEARANCE: Well appearing, in no acute distress, alert and oriented x3, well-hydrated, well nourished. No splenomegaly HEART: Reg no gallops LUNGS: CTA I spent a total of 30 minutes on the date of the service which included preparing to see the patient, [id number] patient care, completing clinical documentation, obtaining and/or reviewing separately obtained history, counseling and educating the patient/family/caregiver, ordering medications, tests, or procedures, communicating with other HCPs (not separately reported), independently interpreting results (not separately reported), communicating results to the patient/family/caregiver, and care coordination (not separately reported). 45 Electronically Signed: Prince Uribe MD October 27, 2023 documented in this encounter [facility] 09-18-2023 History of Present illness Narrative CC: Patient presents with: Recheck: BP follo up HPI Rosalinda Russo is a 53 year old female who presents today for blood pressure follow up. Had decrease in amlodipine a few weeks ago due to leg fatigue and low Blood Pressures. Since decrease of amlodipine blood pressures are improved and less leg fatigue. Ms. Russo denies headache, chest pain, palpitations, dyspnea, and peripheral edema. Patient denies any side effects of her medication(s) and is compliant with their regimen. She does check BP's away from this office with average BP's in the 110s/70s range. Last 3 Encounter BP Readings: Date: BP: 09/18/2023 112/78 08/17/2023 106/66 07/22/2023 110/73 Depression and Anxiety: Not fully controlled at this time. Sleep: difficulty staying asleep, difficulty falling asleep. Likes to stay up late to allow for some quiet time in her house but is only getting 3-4 hours of sleep now. Will go to bed around 12-1 then up by 4 to use the restroom then often can't shut down her mind to sleep. Alcohol use: does not drink any alcohol Drug use: No Appetite: good Stresses: recent diagnosis of leukemia Suicidal Thoughts: No suicidal or homicidal ideation, intent or plan is supportive. REVIEW OF SYSTEMS See HPI CELESTINE-7 ANXIETY SCALE 01/02/2022 09/18/2023 FEELING NERVOUS,ANXIOUS,OR ON EDGE 1 Several days 1 Several days NOT BEING ABLE TO STOP OR CONTROL WORRYING 1 Several days 1 Several days WORRYING TOO MUCH ABOUT DIFFERENT THINGS 0 Not at all sure 1 Several days TROUBLE RELAXING 0 Not at all sure 2 Over half the days BEING SO RESTLESS THAT IT'S HARD TO SIT STILL 0 Not at all sure 0 Not at all sure BEING EASILY ANNOYED OR IRRITABLE 0 Not at all sure 0 Not at all sure FEELING AFRAID IF SOMETHING AWFUL MIGHT HAPPEN 0 Not at all sure 3 Nearly every day GAD7 SCORE 2 8 IF YOU CHECKED OFF ANY PROBLEMS Somewhat difficult Somewhat difficult CP PHQ9 01/02/2022 09/18/2023 Little interest or pleasure 0 - Not at all 1 - Several days Feeling down, depressed, hopeless 1 - Several days 0 - Not at all Trouble falling or staying asleep, sleeping too much 0 - Not at all 3 - nearly every day Feeling tired, having little energy 2 - More than half the days 3 - Nearly every day Poor appetite or overeating 0 - Not at all 1 - Several days Feeling bad about yourself, failure or you have let yourself/family down 0 - Not at all 0 - Not at all Trouble concentrating on things 2 - More than half the days 0 - Not at all Moving or speaking so slowly, or fidgety or restless 0 - Not at all 0 - Not at all Thoughts that you would be better off , or of hurting yourself in some way 0 - Not at all 0 - Not at all How difficult have these problems made things Somewhat difficult Somewhat difficult Interpretation of Total Score 5-9 Mild depression 5-9 Mild depression PAST MEDICAL HISTORY Diagnosis Date Benign hypertension 09/03/2017 Hypothyroid Rosacea PAST SURGICAL HISTORY Procedure Laterality Date SECTION HX 01[facility]2013 [facility] 2009 [facility] HERNIA REPAIR HX 11/2013 Dr Hurtado [facility] LAPAROSCOPY REPAIR INCISIONAL HERNIA REDUCIBLE 07/2013 [facility] ALLERGIES Patient has no allergy information on record. MEDICATIONS lisinopril-hydroCHLOROthiazide (ZESTORETIC) 20-12.5 mg per tablet Take 1 tablet by mouth once daily. buPROPion XL (WELLBUTRIN XL) 300 mg 24 hr tablet Take 1 tablet by mouth once daily. Azelaic Acid (FINACEA) 15 % gel Apply 1 application to affected area two times a day. acetaminophen (TYLENOL EXTRA STRENGTH) 500 mg tablet Take 1,000 mg by mouth every 8 hours as needed. SYNTHROID 100 mcg tablet Take 1 tablet by mouth once daily. Take on empty stomach imatinib (GLEEVEC) 400 mg tablet Take 1 tablet (400 mg) by mouth once daily. amLODIPine (NORVASC) 5 mg tablet Take 1 tablet by mouth once daily. (Patient taking differently: Take 2.5 mg by mouth once daily.) cyanocobalamin (VITAMIN B-12) 1,000 mcg tab Take 1 tablet by mouth once daily. Cholecalciferol, Vitamin D3, 2,000 unit cap Take 1 tablet by mouth once daily. FAMILY HISTORY Problem Relation Age of Onset Depression Mother Diabetes Father Cancer Father liver Hypertension Father Blood Clots Sister Hypertension Sister Alcohol abuse Sister Stroke Maternal Grandmother Blindness Maternal Grandmother Hypertension Maternal Grandmother Diabetes Maternal Grandmother Hypertension Maternal Grandfather Diabetes Maternal Grandfather Heart Attack Paternal Grandmother Hypertension Paternal Grandfather Stroke Paternal Grandfather Diabetes Paternal Grandfather Social History Tobacco Use Smoking status: Never Smokeless tobacco: Never Vaping Use Vaping Use: Never used Substance Use Topics Alcohol use: Yes Comment: rarely Drug use: No PHYSICAL EXAM BP 112/78 Pulse 64 Resp 16 Wt 71.2 kg (157 lb) LMP 08/11/2017 (Approximate) SpO2 98% BMI 27.47 kg/m General Appearance: well appearing, in no acute distress, alert Pysch: mood and affect broad and appropriate Skin: Skin color, texture, turgor normal for age; Eyes: conjunctiva pink and moist, no icterus, sclera white, non-injected Lungs: Lungs clear to auscultation. No wheezing, rhonchi, rales. Heart: RRR without murmur, gallop, or rubs. No ectopy Health maintenance reviewed with patient: Hepatitis B Vaccine(1 of 3 - 3-dose series) Never done Pneumococcal Vaccine(1 of 2 - PCV) Never done HIV Screening Never done Shingrix Vaccine(1 of 2) Never done HPV Testing Never done Colorectal Cancer Screening Never done Mammogram Screening due on 03/05/2018 DTaP,Tdap,Td Vaccine(2 - Td or Tdap) due on 05/01/2021 Depression Assessment due on 08/10/2023 Influenza Vaccine(1) due on 02/07/2024 Covid-19 Vaccine( season) due on 08/17/2024 Annual PCP Team Chronic Disease Visit due on 08/17/2024 BP Controlled (<130/80) due on 08/17/2024 Pap Testing due on 01/17/2026 Diabetes Screening due on 08/11/2026 Lipid Screening due on 06/30/2028 Hepatitis C Screening Completed DATA REVIEWED: No new labs ASSESSMENT/PLAN: 1. Benign hypertension - ICD9: 401.1, ICD10: I10 (primary diagnosis) - Controlled - Continue current medications - Recommend home blood pressure monitoring, to bring results to next visit - Encouraged sodium restriction, DASH or Mediterranean diet - Recommend regular aerobic exercise 2. Anxiety and depression - ICD9: 300.00, 311, ICD10: F41.9, F32.A Anxiety especially uncontrolled - discussed need for healthy sleep haits and can use low dose melatonin - if no improvement in sleep or in anxiety, discussed starting low dose fluoxetine. Patient will call if she wants to start this. Would like to make healthier sleep habits first. - Reviewed concept of neurochemical imbalance wth depression/anxiety, treatment options and benefits of counseling in combination with medication. Also reviewed benefits of sleep hygeine, diet and exercise - Instructed patient to contact office or [id number] after-hours promptly should condition worsen or any new symptoms appear. - Counseling Center [facility] and after hours crisis line 3. Insomnia, unspecified type - ICD9: 780.52, ICD10: G47.00 As above Prescription instructions reviewed with patient as applicable. Potential red flag symptoms discussed with the patient. Reviewed appropriate action plan to take if red flag symptoms occur. Patient agreeable to treatment plan. Judith Howell APRN.CNP documented in this encounter [facility] 09-10-2023 History of Present illness Narrative Images from the original note were not included. Department of Dermatology Allison Daniels APRN.CNP 09/10/2023 Last visit in Dermatology: Visit date not found Objective/Assessment/Plan 1. Seborrheic keratosis (2) Left Forearm - Posterior, Right Forearm - Posterior Hyperkeratotic, variably hyperpigmented, stuck on papules. Discussed etiology, educated and reassured of benign nature. Continue observational course. Monitor for growth and changes. 2. Epidermal inclusion cyst Left Upper Back Cystic nodule with central punctum. Discussed etiology, course, prognosis and treatment options. Discussed removal vs observational course. Patient elects to continue monitoring cyst at this time. Will notify office if patient would like to have cyst removed in the future. 3. Rosacea Head - Anterior (Face) Background erythema involving the cheeks, with discrete telangiectasias and scattered papules and pustules. Discussed etiology, course, prognosis and treatment options. Continue using Azelaic Acid 15% twice daily. Laser treatment discussed - patient defers at this time. 4. Androgenetic alopecia Scalp Diffuse thinning to the vertex and bilateral frontal/temporal scalp Discussed etiology, course, prognosis and treatment options. Discussed treating alopecia with OTC topical Minoxidil if desired. R/b/a for the medication(s) including possible side effects discussed and reviewed with patient. The nature of sun-induced photo-aging and skin cancers is discussed. Sun avoidance, protective clothing, and the use of 30-SPF sunscreens is advised. Patient is instructed to perform regular self exams. Observe for changing, symptomatic, or new skin lesions and seek care with the patient's primary care provider or with dermatology if any lesions of concern are noted. Follow-up as noted below or as needed. Allison Daniels APRN.CNP Chief Complaint: Patient presents with: Derm Problem Subjective and Objective HPI: Rosalinda Russo is a 53 year old female who presents for lesions of concern: 1) Lesion(s): discoloration Location(s): bilateral upper extremities Duration: unsure - noticed spots around time of getting chemotherapy treatment Symptoms: none 2) Bump to left upper back 3) Rosacea to face - Patient uses Azelaic acid currently which seems to be effective 4) Hair loss/thinning to frontal scalp/mid parietal scalp - Family history (patient's mother) - Patient using shampoo with Katlin and Peppermint - Has tried Katlin oil in the past which made hair too greasy) - Patient currently on Gleevec 400mg for CML (patient hasn't noticed increased hair thinning while on this medication) Past medical history is reviewed. Medication list is reviewed. Physical Exam included: Scalp, face, left upper back and left and right forearms The documentation for this note was completed by Cadence Silveira LPN acting as scribe for Allison Daniels APRN.CNP. September 10, 2023 11:40 AM Intake completed by Cadence Silveira LPN I agree with the Chief Complaint, ROS, and Past Histories independently gathered by the clinical director of sales support and the remaining scribed note accurately describes my personal service to the patient. Allison Daniels APRN.CNP documented in this encounter [facility] 07-15-2023 Miscellaneous Notes Patient has been identified by name and date of : No Patient phones for refill(s): Requested Prescriptions Pending Prescriptions Disp Refills Azelaic Acid (FINACEA) 15 % gel 50 g 3 Sig: Apply 1 application to affected area two times a day. Date of last office visit in primary care: 04/30/2023 Date of next office visit in primary care: 08/17/2023 Last 2 Encounter Wt Readings: Date: Wt: 06/02/2023 65.3 kg (144 lb) 05/12/2023 64.6 kg (142 lb 8 oz) Previous labs/tests for medication: Not applicable Please advise. Thank you. Isidar Arias. documented in this encounter [facility] 06-02-2023 History of Present illness Narrative (Elements copied from my note dated April 02, 2023, have been reviewed and updated where appropriate, and all reflect current assessment and medical decision making from today's encounter, June 02, 2023) HISTORY OF PRESENT ILLNESS: Rosalinda Russo is a 53 year old female referred from ER with WBC 380K. Feels well, no fevers, active. Was in ER with chest pains, atypical, work up for this negative. Detailed review of labs Here for follow up, on Gleevec since Apr 14, 2023. Tolerating well, no side effects to report. Labs reviewed. CLINICAL IMPRESSION: CML chronic phase Currently in hematologic remission RECOMMENDATION/PLAN: 1. Continue gleevec 400 mg 2. PCR testing next month, checking for p190 nad 210 variants as both present on initial testing (small p190 component likely there due to high volume disease). Written and verbal health teaching given to patient, patient verbalizes understanding and agrees with treatment plan. PAST MEDICAL HISTORY Diagnosis Date Benign hypertension 09/03/2017 Hypothyroid Rosacea PAST SURGICAL HISTORY Procedure Laterality Date SECTION HX 01/2013 [facility] CHOLECYSTECTOMY 2009 [facility] HERNIA REPAIR HX 11/2013 Dr Hurtado - [facility] LAPAROSCOPY REPAIR INCISIONAL HERNIA REDUCIBLE 07/2013 [facility] FAMILY HISTORY Problem Relation Age of Onset Depression Mother Diabetes Father Cancer Father liver Hypertension Father Blood Clots Sister Hypertension Sister Alcohol abuse Sister Stroke Maternal Grandmother Blindness Maternal Grandmother Hypertension Maternal Grandmother Diabetes Maternal Grandmother Hypertension Maternal Grandfather Diabetes Maternal Grandfather Heart Attack Paternal Grandmother Hypertension Paternal Grandfather Stroke Paternal Grandfather Diabetes Paternal Grandfather Social History Tobacco Use Smoking status: Never Smokeless tobacco: Never Vaping Use Vaping Use: Never used Substance Use Topics Alcohol use: Yes Comment: rarely Drug use: No ALLERGIES: ALLERGIES No Known Allergies CURRENT OUTPATIENT MEDICATIONS: acetaminophen (TYLENOL EXTRA STRENGTH) 500 mg tablet Take 1,000 mg by mouth every 8 hours as needed. SYNTHROID 100 mcg tablet Take 1 tablet by mouth once daily. Take on empty stomach buPROPion XL (WELLBUTRIN XL) 300 mg 24 hr tablet Take 1 tablet by mouth once daily. imatinib (GLEEVEC) 400 mg tablet Take 1 tablet (400 mg) by mouth once daily. lisinopril-hydroCHLOROthiazide (PRINZIDE,ZESTORETIC) 20-12.5 mg per tablet Take 1 tablet by mouth once daily. amLODIPine (NORVASC) 5 mg tablet Take 1 tablet by mouth once daily. Azelaic Acid (FINACEA) 15 % gel Apply 1 application to affected area twice daily. cyanocobalamin (VITAMIN B-12) 1,000 mcg tab Take 1 tablet by mouth once daily. Cholecalciferol, Vitamin D3, 2,000 unit cap Take 1 tablet by mouth once daily. REVIEW OF SYSTEMS: GENERAL: No fever, night sweats, weight loss or malaise. All other reviewed and negative other than HPI. PHYSICAL EXAMINATION: VITAL SIGNS: BP 104/65 Pulse 64 Temp 98.5 Wt 144 lb (65.3kg) SpO2 100% LMP 08/11/2017 GENERAL APPEARANCE: Well appearing, in no acute distress, alert and oriented x3, well-hydrated, well nourished. No splenomegaly HEART: Reg no gallops LUNGS: CTA I spent a total of 30 minutes on the date of the service which included preparing to see the patient, [id number] patient care, completing clinical documentation, obtaining and/or reviewing separately obtained history, counseling and educating the patient/family/caregiver, ordering medications, tests, or procedures, communicating with other HCPs (not separately reported), independently interpreting results (not separately reported), communicating results to the patient/family/caregiver, and care coordination (not separately reported). 45 Electronically Signed: Prince Uribe MD June 02, 2023 documented in this encounter [facility] 05-12-2023 History of Present illness Narrative Chief Complaint Patient presents with: Established Patient HPI: Rosalinda Russo is a 53 year old female who presents here today for follow up CML. Per Dr. Uribe's previous note: H/o referred from ER with WBC 380K. Feels well, no fevers, active. Was in ER with chest pains, atypical, work up for this negative. Current therapy:Gleevec Began 04/14/23 No new concerns today. Pt. here with spouse. Appetite:Too good. Energy level:Good. Denies fevers. Mouth:denies sores Resp:denies cough or sob Cardiac:denies chest pain/palpitations GI:denies abd pain, n/v, moving bowels regularly :denies dysuria/hematuria Extrem:denies new pain, occ. joint pain Neuro:denies symptoms of neuropathy Skin:denies rashes Heme:denies bleeding The ROS is otherwise negative. Past medical history, appointments, medications, allergies reviewed. No changes. EXAM: BP 106/72 Pulse 70 Temp 36.7 C (98 F) (Temporal) Wt 64.6 kg (142 lb 8 oz) LMP 08/11/2017 (Approximate) SpO2 100% BMI 24.94 kg/m APPEARANCE Well appearing, alert, in no acute distress, well-hydrated, well nourished. HEART RRR with normal S1 and S2, no murmurs LUNG clear to auscultation LYMPH NODES No cervical lymphadenopathy, No supraclavicular lymphadenopathy, and No axillary lymphadenopathy. ABDOMEN bowel sounds normoactive, soft, non-tender EXTREMITIES No edema NEURO Awake, alert and oriented x 3, Normal gait, and No involuntary motions. SKIN Skin color, texture, turgor normal, no suspicious rashes or lesions LABS: Component Latest Ref Rng & Units 04/14/2023 04/21/2023 04/28/2023 05/05/2023 05/12/2023 WBC 3.70 - 11.00 k/uL 338.68 (H) 300.38 (H) 98.92 (H) 6.14 3.26 (L) RBC 3.90 - 5.20 m/uL 3.31 (L) 3.43 (L) 3.55 (L) 3.52 (L) 3.51 (L) Hemoglobin 11.5 - 15.5 g/dL 10.6 (L) 10.9 (L) 10.6 (L) 10.4 (L) 10.6 (L) Hematocrit 36.0 - 46.0 % 30.9 (L) 31.3 (L) 32.6 (L) 32.5 (L) 32.4 (L) MCV 80.0 - 100.0 fL 93.4 91.3 91.8 92.3 92.3 MCH 26.0 - 34.0 pg 32.0 31.8 29.9 29.5 30.2 MCHC 30.5 - 36.0 g/dL 34.3 34.8 32.5 32.0 32.7 RDW-CV 11.5 - 15.0 % 18.6 (H) 18.2 (H) 18.6 (H) 19.9 (H) 19.4 (H) Platelet Count 150 - 400 k/uL 160 112 (L) 132 (L) 170 170 MPV 9.0 - 12.7 fL 10.8 11.6 12.0 11.2 9.6 NRBC /100 WBC 3.0 1.0 0.0 1.0 0.0 Absolute nRBC <0.01 k/uL 10.16 (H) 3.00 (H) <0.01 0.06 (H) <0.01 Neut% % 55.0 64.0 81.0 74.0 72.7 Abs Neut (ANC) 1.45 - 7.50 k/uL 186.27 (H) 192.24 (H) 80.13 (H) 4.54 2.37 Lymph% % 3.0 4.0 5.0 15.0 14.4 Abs Lymph 1.00 - 4.00 k/uL 10.16 (H) 12.02 (H) 4.95 (H) 0.92 (L) 0.47 (L) [place]% % 2.0 2.0 3.0 8.0 8.6 Abs [place] <0.87 k/uL 6.77 (H) 6.01 (H) 2.97 (H) 0.49 0.28 Eosin% % 3.0 3.0 1.0 1.0 0.9 Abs Eosin <0.46 k/uL 10.16 (H) 9.01 (H) 0.99 (H) 0.06 0.03 Baso% % 4.0 2.0 2.0 2.0 2.5 Abs Baso <0.11 k/uL 13.55 (H) 6.01 (H) 1.98 (H) 0.12 (H) 0.08 [place]% % 8.0 9.0 4.0 Myelo% % 19.0 15.0 4.0 Promyl% % 2.0 Blast <=0.0 % 4.0 (H) 1.0 (H) Left Shift Present Present Present Platelet Estimate Decreased Decreased Decreased Adequate Red Cell Morph Reviewed: see results of individual morphologies Reviewed: see results of individual morphologies Reviewed: see results of individual morphologies Reviewed: see results of individual morphologies Polychromasia Slight Slight Slight Slight Anisocytosis Present Present Present Present Ovalocytes Few Few Few Few Tear Drop Few Few Few Few DTYPE Manual Manual Manual Manual Auto Immature Gran % % 0.9 IMMATURE GRANS (ABS) <0.10 k/uL 0.03 CMP/TSH: Pending ASSESSMENT/PLAN: 1. CML (chronic myeloid leukemia) (HCC) - ICD9: 205.10, ICD10: C92.10 - Overall tolerating Gleevec well. - Reviewed CBC with pt. and Dr. Castillo. - CMP/TSH pending. - Continue Gleevec. - CBC/diff in one week and continue weekly. - Follow with Dr. Uribe in 3 weeks with CBC/CMP - Pt. aware to call office with any questions/concerns. The patient indicates understanding of these issues and agrees with the plan. All documentation from previous visit of 04/02/23-Dr. Uribe was copied and pasted, documentation has been reviewed and edited as necessary for today's visit. Yee Lind APRN.CNP documented in this encounter [facility] 04-30-2023 Instructions Judith Howell APRN.CNP - 04/30/2023 10:10 AM EDT Get ordered fasting blood work on 05/[address] Navas's standing order. documented in this encounter [facility] 04-30-2023 History of Present illness Narrative CC: Patient presents with: Follow Up HPI Rosalinda Russo is a 53 year old female who presents today for routine follow up. Recent diagnosis of CML after an ER visit incidental finding of highly elevated WBC. Was started treatment about 2 weeks ago. Takes the Gleevec daily and feels she is tolerating well outside of muscle pain but this seems it is slightly improving. Elevated triglycerides: weekend prior to blood draw included wine and rich diet for her anniversary: Exercises regularly and typically eats a healthy well portioned diet. HTN: Ms. Russo indicates that she is feeling well and denies any symptoms referable to elevated blood pressure. Specifically denies headache, chest pain, palpitations, dyspnea, and peripheral edema. Patient denies any side effects of her medication(s) and is compliant with their regimen. She does check BP's away from this office with average BP's in the 100s-110s/70s range. Last 3 Encounter BP Readings: Date: BP: 04/30/2023 108/70 04/02/2023 124/84[post procedure vital[ 04/02/2023 130/80 Hypothyroidism: takes as prescribed on an empty stomach and then waits a 1/2 hour for other medications but gleevec is taken hours later. Has chronic fatigue and gained 4 pounds with gleevec. At end of appointment reports she has had itchy odd rash to BUE for intermittently over the past year. Started as bumps to BUE but then became slightly itchy and is now flat dunlap circular spots to BUE. REVIEW OF SYSTEMS General: no fevers, no chills, no night sweats, no recurrent infections, no change in appetite, no change in energy, and no significant changes in weight Respiratory: no cough, no wheezing, no shortness of breath, no hemoptysis Cardiovascular: no chest pain, no chest pressure, no palpitations, and no swelling GI: No nausea, vomiting, or diarrhea Neurologic: No headache, weakness, numbness, tingling, dizziness, memory loss, syncope. PAST MEDICAL HISTORY Diagnosis Date Benign hypertension 09/03/2017 Hypothyroid Rosacea PAST SURGICAL HISTORY Procedure Laterality Date SECTION HX 01/2013 [facility] CHOLECYSTECTOMY 2009 [facility] HERNIA REPAIR HX 11/2013 Dr Hurtado - [facility] LAPAROSCOPY REPAIR INCISIONAL HERNIA REDUCIBLE 07/2013 [facility] ALLERGIES Patient has no known allergies. MEDICATIONS buPROPion XL (WELLBUTRIN XL) 300 mg 24 hr tablet Take 1 tablet by mouth once daily. lisinopril-hydroCHLOROthiazide (PRINZIDE,ZESTORETIC) 20-12.5 mg per tablet Take 1 tablet by mouth once daily. amLODIPine (NORVASC) 5 mg tablet Take 1 tablet by mouth once daily. SYNTHROID 100 mcg tablet Take 1 tablet by mouth once daily. Take on empty stomach imatinib (GLEEVEC) 400 mg tablet Take 1 tablet (400 mg) by mouth once daily. JUNE08/29, , 1 mg-20 mcg (21)/75 mg (7) per tablet Take by mouth once daily. Azelaic Acid (FINACEA) 15 % gel Apply 1 application to affected area twice daily. cyanocobalamin (VITAMIN B-12) 1,000 mcg tab Take 1 tablet by mouth once daily. Cholecalciferol, Vitamin D3, 2,000 unit cap Take 1 tablet by mouth once daily. FAMILY HISTORY Problem Relation Age of Onset Depression Mother Diabetes Father Cancer Father liver Hypertension Father Blood Clots Sister Hypertension Sister Alcohol abuse Sister Stroke Maternal Grandmother Blindness Maternal Grandmother Hypertension Maternal Grandmother Diabetes Maternal Grandmother Hypertension Maternal Grandfather Diabetes Maternal Grandfather Heart Attack Paternal Grandmother Hypertension Paternal Grandfather Stroke Paternal Grandfather Diabetes Paternal Grandfather Social History Tobacco Use Smoking status: Never Smokeless tobacco: Never Vaping Use Vaping Use: Never used Substance Use Topics Alcohol use: Yes Comment: rarely Drug use: No PHYSICAL EXAM BP 108/70 Pulse 93 Resp 16 Wt 63.5 kg (140 lb) LMP 08/11/2017 (Approximate) SpO2 99% BMI 24.50 kg/m General Appearance: well appearing, in no acute distress, alert Skin: small varying sizes of dunlap flat circular rash to BUE especially to hands Eyes: conjunctiva pink and moist, no icterus, sclera white, non-injected Neck: Thyroid normal size and symmetric without palpable nodules, Neck supple, No adenopathy Lymph nodes: No cervical lymphadenopathy and No supraclavicular lymphadenopathy Lungs: Lungs clear to auscultation. No wheezing, rhonchi, rales. Heart: RRR without murmur, gallop, or rubs. No ectopy BUE Extremities: No deformities, edema, clubbing or cyanosis. Good capillary refill. Pulses palpable. Health maintenance reviewed with patient: Hepatitis B Vaccine(1 of 3 - 3-dose series) Never done Pneumococcal Vaccine(1 - PCV) Never done HIV Screening Never done BP Controlled (<130/80) Never done DTaP,Tdap,Td Vaccine(1 - Tdap) Never done Shingrix Vaccine(1 of 2) Never done HPV Testing Never done Colorectal Cancer Screening Never done Mammogram Screening due on 03/05/2018 Covid-19 Vaccine(6 - Moderna risk series) due on 07/31/2022 Influenza Vaccine(1) due on 04/10/2023 Annual PCP Team Chronic Disease Visit due on 10/23/2023 Pap Testing due on 01/17/2026 Diabetes Screening due on 04/28/2026 Lipid Screening due on 04/14/2028 Depression Assessment Completed Hepatitis C Screening Completed DATA REVIEWED: Most recent labs ASSESSMENT/PLAN: 1. Acquired hypothyroidism - ICD9: 244.9, ICD10: E03.9 (primary diagnosis) - Instructed patient on importance of taking on an empty stomach either first thing in the morning or at bedtime. - TSH BLD - T4 FREE/FREE THYROX - will recheck levels within 6 weeks of starting gleevec 2. CML (chronic myelocytic leukemia) (HCC) - ICD9: 205.10, ICD10: C92.10 - continue with treatments and recommendations by hematology. - patient to discuss vaccination options and new medication 3. Medication management - ICD9: V58.69, ICD10: Z79.899 - see #1 - TSH BLD - T4 FREE/FREE THYROX 4. High triglycerides - ICD9: 272.1, ICD10: E78.1 - New diagnosis - possibly from large amount of food and some alcohol right before lab draw and possibly not being fully fasting. Will recheck within 6 weeks after and if still elevated consider treating with fenofibrate - Counseled on healthy diet and regular exercise - Discussed need for and benefit of weight loss. BMI 24.50 kg/(m^2) - LIPID PANEL BASIC 5. Benign hypertension - ICD9: 401.1, ICD10: I10 - Controlled - Continue current medications - Recommend home blood pressure monitoring, to bring results to next visit - Encouraged sodium restriction, DASH or Mediterranean diet - Recommend regular aerobic exercise 6. Rash - ICD9: 782.1, ICD10: R21 -possible leukemia cutis. Patient to discuss with hematology at upcoming appointment and derm consult for further evaluation if needed - CONSULT TO DERMATOLOGY Prescription instructions reviewed with patient as applicable. Potential red flag symptoms discussed with the patient. Reviewed appropriate action plan to take if red flag symptoms occur. Patient agreeable to treatment plan. Judith Howell APRN.HALIMA documented in this encounter [facility] 04-24-2023 Miscellaneous Notes Last office visit: 10/22/22 Next appointment scheduled: 04/30/23 Patient phones requesting refills as follows: Requested Prescriptions Pending Prescriptions Disp Refills buPROPion XL (WELLBUTRIN XL) 300 mg 24 hr tablet 90 tablet 1 Sig: Take 1 tablet by mouth once daily. Please review and advise. Anyi Crowe LPN documented in this encounter [facility] 04-23-2023 Miscellaneous Notes ORAL ANTI-CANCER AGENTS FOLLOW-UP PHONE CALL/VISIT Patient identified by name and date of . YES Patient is on day 9 of Gleevec for Chronic Myelogenous Leukemia (CML). SYMPTOM ASSESSMENT Headache: No Visual Changes: No Dizziness: No Do you have any periods of confusion? No Mood changes: No Mouth or throat pain: No Appetite: no changes in appetite, appetite good Taste changes: No Nausea: Yes a few times has felt queasy but sipped on gingerale and resolved on it's own Vomiting: No Heartburn: No. Weight gain/loss: Unable to assess Episodes of palpitations/chest discomfort/pressure/pain No Shortness of breath: No Cough: No Diarrhea: no Constipation: no Bladder/Urinary Changes: None Pain: states joints feel achy viral. knees. not bad denies needing to take anything OTC. Continues with spin class Fever: No Chills: No Cold sensitivity: No Numbness/weakness: No Edema: No Skin changes: No Itching: No Yellowing of skin or eyes: No Musculoskeletal/joint changes/issues No Bleeding issues: No Activity Level (0-100%): same as baseline, maybe a little more Does the patient need interventions or same day appointment:No ADDITIONAL FOLLOW UP: The next outreach call is due on: as needed and was scheduled No, appointment made The following lab tests are due: weekly on Verified patient is aware of next appointment in the cancer center: Yes. Verified patient verbalized how to correctly refill the oral agent prescription. Yes Does the patient have any financial difficulties affording this medication? No Patient verbalizes understanding of when to seek Medical Attention? YES Patient verbalizes understanding of after-hours and weekend phone number? YES Patient verbalized importance of medication compliance in taking the oral agent as prescribed. Patient instructed to call if unable to comply. Annie Alba RN documented in this encounter [facility] 04-21-2023 Miscellaneous Notes Patient s identity has been confirmed by name and birthdate: Yes Call received from Oziel Dobson at 2:33 PM to report an urgent value for WBC with a result of 300.38. Dr. Uribe was notified of the result at 3:30 PM. Gilda Sparks LPN documented in this encounter [facility] 04-15-2023 Miscellaneous Notes Patient started/will start taking Gleevec on today. Nadai Alba RN ORAL ANTI-CANCER AGENTS EDUCATION patient called today for oral medication education of Gleevec for Chronic Myelogenous Leukemia (CML) READINESS TO LEARN Cognitive Ability: Alert and oriented Motivation to Learn: Interested Family Support: High - Very involved in pt care Instruction Provided to: Patient Patient learns best by: Multiple Methods Factors affecting learning: None Physical limitation affecting learning: None SANDRA ASSESSMENT: 1.) Verified that patient knows that the oral agents are for cancer and are taken by mouth. Yes 2.) Medication review completed during visit. Yes 3.) Patient is able to swallow pills. Yes 4.) Patient is able to read the drug label/information. Yes 5.) Patient is able to open the medication bottles and packages. Yes 6.) Has patient taken other pills for cancer? No 7.) Is patient experiencing any symptoms that would affect their ability to keep down pills, for example nausea or vomiting? No 8.) Verified that patient understands prescription delivery, benefit investigation and refill process. Yes DRUG-SPECIFIC EDUCATION: 1.) Verified patient knows the drug name. Yes 2.) Verified patient understands the dose and schedule of oral anti cancer agent. Yes 3.) Verified patient knows what to do if a medication dose is missed. Yes 4.) Verified patient understands where to store the drug. Yes 5.) Verified patient understands potential side effects and how to manage them. Yes 6.)Verified patient understands handling precautions of oral anti cancer agent. Yes 7.) Verified patient was given written instructions and understands when and whom to call with questions. Yes 8.) Verified patient understands where and how to return drug. Yes 9.) Verified patient received drug specific adult education handout and neutropenic wallet card Yes EVALUATE: The patient demonstrated an understanding of all the above education using the teach-back method. Yes Instructed to call us with any questions, concerns, and/or unresolved symptoms. Will continue to follow up and provide reinforcement of teaching topics as needed. Annie Alba RN documented in this encounter [facility] 04-15-2023 Miscellaneous Notes Pt here for labs. Asking about additional labs that should have been ordered. Per this phone note, notified pt that her PCP has not entered any other labs at this time. Spoke with patient, she will reach out to her PCP since they ordered this lab. Nadia Alba RN documented in this encounter [facility] 04-10-2023 Miscellaneous Notes Spoke with patient and she will be out of town until 04/12. Scheduled labs and OV as directed starting on 04/14 and, having consulted the nurse, patient will start imatinib on 04/15. Nurse to call on 04/15 to review with patient. Leesa Gonzalez documented in this encounter [facility] 04-09-2023 Miscellaneous Notes Prior authorization was approved for Imatinib. Plan Name: [employer] [place] reference number: [id number] Approval Dates: 04/08/2023-11/07/2023 However, s/he is required to use [facility] to fill this medication. Will queue prescription(s) to go to designated specialty pharmacy. For reference, their pharmacy phone number is [phone]. No further action by [facility] Specialty. Vera Paige, PharmD Clinical Pharmacist, Oncology [facility] P: , F: Pool: P [facility] Pool #: [id number] documented in this encounter [facility] 04-07-2023 History of Present illness Narrative [facility] received prescription(s) for Sprycel from Dr. Uribe's office. Benefits investigation was conducted, indicating that a prior authorization is required by patient's insurance plan with [employer]. Encounter will be updated once prior authorization has been submitted by [facility]. Margarita Millan CPhT [facility], Oncology P: / F: documented in this encounter [facility] 04-02-2023 Procedure note Associated Ord er(s): BONE MARROW BIOPSY Post-Procedure Diagnose(s): Leukemoid reaction BEDSIDE PROCEDURE NOTE BONE MARROW BIOPSY Performed by: Yee Lind APRN.HALIMA Authorized by: Yee Lind APRN.CNP Where was Patient When this Procedure was Performed [facility] Informed Consent Consent Obtained: Written Hines Protocol A moment to CARE was completed. SIGN IN Personnel directly involved with the procedure wore the appropriate PPE. Special Equipment: N/A Patient/Surrogate Stated/Verified: Patient name, Date of , Relevant allergies and Intended procedure TIME OUT Intended patient and procedure match the source document(s). Consent documented and matches the intended procedure. Relevant labs, photos, and/or imaging studies have been reviewed. Correct side/site marked and visible. Medications required for procedure verified. No fire risk assessment and interventions applicable. No implant(s) inserted. Pre-procedure Details: The area was prepped with povidone Iodine (Betadine) and allowed to dry. A sterile partial body drape was applied following the usual aseptic technique. Medications: Local Anesthesia (see MAR): Lidocaine 1% Procedure Details: Patient Position: Left lateral decubitus Aspiration Laterality: Unilateral Aspiration Site: Right posterior superior iliac crest Biopsy Laterality: Unilateral Biopsy Site: Right posterior sperior iliac crest . RESPACE biopsy system was used. Using aseptic technique, bone marrow aspiration was performed. A touch prep was taken. Core biopsy was obtained 1 cm. The core biopsy was confirmed. Pressure dressing applied to Bone Marrow site(s). Hemostasis maintained. Post-procedure Details: Patient tolerated the procedure well with no immediate complications Estimated Blood Loss: scant Specimens Sent: bone marrow analysis Teaching Complete: Bone Marrow Biopsy Post-procedure teaching complete Post-procedure care was reviewed and explained. Patient instructed to communicate complaints of redness, swelling, increased or unresolved pain, bleeding chills, bruising, and/or fever. Patient verbalized understanding. SIGN OUT No instruments, equipment or retained foreign bodies applicable. SIGNATURE: Yee Lind APRN.CNP PATIENT NAME: Rosalinda Russo DATE: April 02, 2023 TIME: 1:50 PM documented in this encounter [facility] 04-02-2023 History of Present illness Narrative Pt discharged to home with after BMBX with dry sterile dressing in place. No drainage noted. Post-procedure care reviewed with patient. Pt to call with any complaints of redness, swelling, increased or unresolved pain, bleeding, chills, bruising, and/or fever. Pt verbalized understanding. Demetra Butler LPN documented in this encounter [facility] 04-02-2023 History of Present illness Narrative HISTORY OF PRESENT ILLNESS: Rosalinda Russo is a 53 year old female referred from ER with WBC 380K. Feels well, no fevers, active. Was in ER with chest pains, atypical, work up for this negative. Detaile dreview of labs CLINICAL IMPRESSION: Leukocytosis, left shift, ?CML RECOMMENDATION/PLAN: 1. Marrow, if dry tap will send peripheral blood for BCR ABL, NGS Written and verbal health teaching given to patient, patient verbalizes understanding and agrees with treatment plan. PAST MEDICAL HISTORY Diagnosis Date Benign hypertension 09/03/2017 Hypothyroid Rosacea PAST SURGICAL HISTORY Procedure Laterality Date SECTION HX 01/2013 [facility] CHOLECYSTECTOMY 2009 [facility] HERNIA REPAIR HX 11/2013 [facility] LAPAROSCOPY REPAIR INCISIONAL HERNIA REDUCIBLE 07/2013 [facility] FAMILY HISTORY Problem Relation Age of Onset Depression Mother Diabetes Father Cancer Father liver Hypertension Father Blood Clots Sister Hypertension Sister Alcohol abuse Sister Stroke Maternal Grandmother Blindness Maternal Grandmother Hypertension Maternal Grandmother Diabetes Maternal Grandmother Hypertension Maternal Grandfather Diabetes Maternal Grandfather Heart Attack Paternal Grandmother Hypertension Paternal Grandfather Stroke Paternal Grandfather Diabetes Paternal Grandfather Social History Tobacco Use Smoking status: Never Smokeless tobacco: Never Vaping Use Vaping Use: Never used Substance Use Topics Alcohol use: Yes Comment: rarely Drug use: No ALLERGIES: ALLERGIES No Known Allergies CURRENT OUTPATIENT MEDICATIONS: 08/29, 28, 1 mg-20 mcg (21)/75 mg (7) per tablet Take by mouth once daily. lisinopril-hydroCHLOROthiazide (PRINZIDE,ZESTORETIC) 20-12.5 mg per tablet Take 1 tablet by mouth once daily. buPROPion XL (WELLBUTRIN XL) 300 mg 24 hr tablet Take 1 tablet by mouth once daily. amLODIPine (NORVASC) 5 mg tablet Take 1 tablet by mouth once daily. SYNTHROID 100 mcg tablet Take 1 tablet by mouth once daily. Take on empty stomach Azelaic Acid (FINACEA) 15 % gel Apply 1 application to affected area twice daily. cyanocobalamin (VITAMIN B-12) 1,000 mcg tab Take 1 tablet by mouth once daily. Cholecalciferol, Vitamin D3, 2,000 unit cap Take 1 tablet by mouth once daily. REVIEW OF SYSTEMS: GENERAL: No fever, night sweats, weight loss or malaise. All other reviewed and negative other than HPI. PHYSICAL EXAMINATION: VITAL SIGNS: BP 130/80 Pulse 101 Temp 98.5 Ht 5' 3.386 (1.61m) Wt 136 lb 8 oz (61.9kg) SpO2 98% LMP 08/11/2017 BMI 23.89 kg/(m^2). GENERAL APPEARANCE: Well appearing, in no acute distress, alert and oriented x3, well-hydrated, well nourished. I spent a total of 45 minutes on the date of the service which included preparing to see the patient, [id number] patient care, completing clinical documentation, obtaining and/or reviewing separately obtained history, counseling and educating the patient/family/caregiver, ordering medications, tests, or procedures, communicating with other HCPs (not separately reported), independently interpreting results (not separately reported), communicating results to the patient/family/caregiver, and care coordination (not separately reported). 45 Electronically Signed: Prince Uribe MD April 02, 2023 1:05 PM documented in this encounter [facility] 04-02-2023 Miscellaneous Notes Patient returned call and is able to come in today for all appointments. Shana is scheduling. Dr. Uribe, please sign lab order. Yessy Trejo LPN Message left for patient to contact this nurse regarding appointments for today. Patient will need a lab appointment today @ 12:45 CBC PBS X2 for BMBX to [facility], OV with Dr. Uribe @ 1:00 and a BMBX @ 1:30. Yessy Trejo LPN documented in this encounter [facility] 10-29-2022 Miscellaneous Notes back to patient requesting that she have her contact our office to reschedule as we are unable to do so through her account. TAMIR Arenas documented in this encounter [facility] 09-26-2022 History of Present illness Narrative HISTORY AND PHYSICAL Rosalinda Russo 1970 REFERRING PHYSICIAN: Eden Petersen MD CHIEF COMPLAINT: Consult (Colonoscopy) HPI: The patient is a 52 year old female referred for endoscopy. Rosalinda notes no colon complaints. Patient denies any change in bowel habits, weight changes, blood in stools, black tarry stools or abdominal pain. Denies family history of colon issues. The patient notes no upper GI complaints. Rosalinda has not undergone prior endoscopy. Patient denies chest pain, shortness of breath or recent hospitalizations. Denies problems with sedation in the past. PAST MEDICAL HISTORY Diagnosis Date Benign hypertension 09/03/2017 Hypothyroid Rosacea PAST SURGICAL HISTORY Procedure Laterality Date SECTION HX 01/2013 [facility] CHOLECYSTECTOMY 2009 [facility] HERNIA REPAIR HX 11/2013 Dr [facility] LAPAROSCOPY REPAIR INCISIONAL HERNIA REDUCIBLE 07/2013 [facility] Current Outpatient Medications Medication Sig lisinopril-hydroCHLOROthiazide (PRINZIDE,ZESTORETIC) 20-12.5 mg per tablet Take 1 tablet by mouth once daily. buPROPion XL (WELLBUTRIN XL) 300 mg 24 hr tablet Take 1 tablet by mouth once daily. amLODIPine (NORVASC) 5 mg tablet Take 1 tablet by mouth once daily. SYNTHROID 100 mcg tablet Take 1 tablet by mouth once daily. Take on empty stomach Azelaic Acid (FINACEA) 15 % gel Apply 1 application to affected area twice daily. cyanocobalamin (VITAMIN B-12) 1,000 mcg tab Take 1 tablet by mouth once daily. Cholecalciferol, Vitamin D3, 2,000 unit cap Take 1 tablet by mouth once daily. No current facility-administered medications for this visit. ALLERGIES: Patient has no known allergies. PERSONAL HISTORY: Social History Tobacco Use Smoking status: Never Smokeless tobacco: Never Vaping Use Vaping Use: Never used Substance Use Topics Alcohol use: Yes Comment: rarely Drug use: No FAMILY HISTORY: FAMILY HISTORY Problem Relation Age of Onset Diabetes Father Cancer Father liver Diabetes Maternal Grandmother Diabetes Paternal Grandmother Diabetes Paternal Grandfather Hypertension Sister REVIEW OF SYMPTOMS: The review of systems data was entered by the nurse and reviewed by me Nursing Notes: Davida Hutchinson LPN 09/26/2022 9:05 AM Signed REVIEW OF SYSTEMS: General: The patient denies fatigue, denies weight loss, denies weight gain, denies feeling hot, and denies feelings of cold. Eyes: The patient denies glaucoma, denies eye injury/surgery, does not wear glasses or contacts. Ear/Nose/Throat: The patient denies allergies, denies hayfever, denies ear infections, and denies bloody noses. Cardiovascular: The patient denies chest pain, denies heart disease, NOTES high blood pressure,denies cardiac stent, denies prior heart attack, denies irregular heart beat, NOTES high cholesterol, denies poor circulation, denies heart failure, other cardiac issues, denies claudication, denies cold feet, denies peripheral arterial stent. Respiratory: The patient denies tuberculosis, denies pneumonia, denies frequent cough, denies pulmonary embolism, denies shortness of breath, and denies coughing up blood. Gastrointestinal: The patient denies difficulty swallowing, denies acid reflux, denies ulcers, denies vomiting, denies jaundice/hepatitis, denies gallbladder problems, denies black or tarry stools, denies hemorrhoids, denies bleeding from rectum, denies diverticulitis, denies constipation, denies diarrhea, denies loss of stool control, and denies hernias. Kidney/Bladder: The patient denies kidney stones, denies urine infections, and denies bloody urine. Skin: The patient denies a history of skin cancer, denies bleeding/changing moles, and denies a history of skin rash. Neurologic: The patient denies a history of epilepsy/convulsions, denies headaches, denies head/spinal injuries, and denies stroke/TIA. Psychiatric: The patient denies psychiatric medications, denies depression, and denies voices, denies substance abuse. Endocrine: The patient NOTES thyroid disorders, denies diabetes, and denies hormonal problems. Hematologic: The patient denies a history of bruising, denies bleeding, and denies anemia, denies blood clots. Infections: The patient denies a history of measles and mumps, denies rheumatic fever, and denies sexually transmitted diseases. Musculoskeletal: The patient denies back pain/injury, denies back problems, denies sciatica, denies knee/foot trouble, denies arthritis, or denies gout. When was patient's last Mammogram screening? N/A Last Colonoscopy: n/a Davida Hutchinson LPN I have confirmed and edited as necessary, the PFSH and ROS obtained by others. Maria Del Rosario Espinosa PA-C PHYSICAL EXAMINATION: General: The patient is 52 year old female, well nourished, well hydrated in no acute distress. The patient is oriented to time, place, and person. VITALS: Blood pressure 118/78, pulse 96, temperature 36.4 C (97.6 F), height 162.6 cm (5' 4), weight 71.4 kg (157 lb 6.4 oz), last menstrual period 08/11/2017, SpO2 98 %. Body mass index is 27.02 kg/m . HEENT: Normal cephalic, ataumatic, pupils are equally round, sclera are anicteric, mucous membranes are moist, oropharynx is clear. Neck has no masses, asymmetry or lymphadenopathy. Respiratory: Clear to auscultation and percussion. Normal respiratory excursion and pattern. Cardiac: Examination is regular rate and rhythm. Normal S1/S2 Abdominal exam: Soft, nontender, with no palpable masses. No hepatosplenomegaly. No palpable hernias. Extremities: no clubbing, cyanosis or edema. No adenopathy. LABORATORY VALUES: As Noted RADIOLOGIC STUDIES: As Noted Assessment IMPRESSION: encounter for screening colonoscopy PLAN: I have reviewed my findings with the surgeon. Will plan for lower endoscopy. We discussed the risks and benefits of the planned endoscopy. I have informed the patient that complications can occur including failure to complete the endoscopy and perforation. The patient had the opportunity to ask questions concerning the planned endoscopy. My staff has also explained the procedure to the patient in understandable terms and has given the patient printed material concerning the procedure. The patient freely consents to surgery. The patient was offered a surgery/procedure at a [facility] facility. I have counseled the patient regarding the risk of exposure to and/or potential harm posed by the COVID-19 virus with having a surgery/procedure at this time versus the risk of delaying the surgery/procedure. It is not possible to know either the risk of delaying the surgery or procedure or chance of getting an infection with perfect accuracy, but a joint decision was made between the patient and myself to proceed at this time with endoscopy. I plan to use Golytely bowel preparation I have explained to the patient the difference between IV conscious sedation and MAC anesthesia - and I have offered either, according to the patient's wishes. I have explained that with IV conscious sedation there is no anesthesia provider available and therefore there is a limitation of the amount of IV medications that can be given and that the patient may wake up in the middle of the procedure and/or experience pain/discomfort during the procedure. Further discussion was done and the patient was given the opportunity to ask questions and all questions were answered. The patient chooses MAC anesthesia Diagnoses: (Z12.11) Encounter for screening for malignant neoplasm of colon (primary encounter diagnosis) Consultation requested by Dr. Petersen for an opinion regarding screening colonoscopy. My final recommendations will be communicated back to the requesting physician by way of shared Medical record or letter to requesting physician via US mail. Maria Del Rosario Espinosa PA-C documented in this encounter [facility] 09-26-2022 Nurse Note REVIEW OF SYSTEMS: General: The patient denies fatigue, denies weight loss, denies weight gain, denies feeling hot, and denies feelings of cold. Eyes: The patient denies glaucoma, denies eye injury/surgery, does not wear glasses or contacts. Ear/Nose/Throat: The patient denies allergies, denies hayfever, denies ear infections, and denies bloody noses. Cardiovascular: The patient denies chest pain, denies heart disease, NOTES high blood pressure,denies cardiac stent, denies prior heart attack, denies irregular heart beat, NOTES high cholesterol, denies poor circulation, denies heart failure, other cardiac issues, denies claudication, denies cold feet, denies peripheral arterial stent. Respiratory: The patient denies tuberculosis, denies pneumonia, denies frequent cough, denies pulmonary embolism, denies shortness of breath, and denies coughing up blood. Gastrointestinal: The patient denies difficulty swallowing, denies acid reflux, denies ulcers, denies vomiting, denies jaundice/hepatitis, denies gallbladder problems, denies black or tarry stools, denies hemorrhoids, denies bleeding from rectum, denies diverticulitis, denies constipation, denies diarrhea, denies loss of stool control, and denies hernias. Kidney/Bladder: The patient denies kidney stones, denies urine infections, and denies bloody urine. Skin: The patient denies a history of skin cancer, denies bleeding/changing moles, and denies a history of skin rash. Neurologic: The patient denies a history of epilepsy/convulsions, denies headaches, denies head/spinal injuries, and denies stroke/TIA. Psychiatric: The patient denies psychiatric medications, denies depression, and denies voices, denies substance abuse. Endocrine: The patient NOTES thyroid disorders, denies diabetes, and denies hormonal problems. Hematologic: The patient denies a history of bruising, denies bleeding, and denies anemia, denies blood clots. Infections: The patient denies a history of measles and mumps, denies rheumatic fever, and denies sexually transmitted diseases. Musculoskeletal: The patient denies back pain/injury, denies back problems, denies sciatica, denies knee/foot trouble, denies arthritis, or denies gout. When was patient's last Mammogram screening? N/A Last Colonoscopy: n/a Davida Hutchinson LPN documented in this encounter [facility] 09-10-2022 Instructions Eden Petersen MD - 09/10/2022 11:46 AM EST Sleep Hygiene (Edu) You have been given information on Sleep Hygiene. Sleep hygiene is the practice of following good sleep habits in order to get a restful, effective night s sleep. Poor sleep hygiene can lead to long-term insomnia and sleep deprivation. When you do not get restful, effective sleep, it will interfere with work, driving, and normal day-to-day activities. It can also have bad effects on your physical and mental health. Fortunately, there are a few simple guidelines that can help you to improve your sleep. They include changes in your personal sleeping habits and your sleeping environment, along with the creation of a routine for getting ready to go to bed. The following tips will help you with your sleep habits: Establish a constant bedtime and an awakening time. This is one of the most important habits in developing good sleep patterns. Try to go to bed at the same time every night, and awaken at the same time each morning. You should not nap more than 30 minutes. Avoid alcohol 4-6 hours before bedtime. Alcohol does have a sleep-inducing effect, however, as the alcohol levels in your blood start to decrease, many people experience a stimulant or wake-up effect. Avoid caffeine 4-6 hours before bedtime. This includes coffee, tea, soda, and chocolate. Avoid spicy foods and foods with a lot of sugar 4-6 hours before bedtime. These foods typically affect your ability to stay asleep. Try to eat a light snack with foods high in tryptophan just before bedtime. Milk, bananas, yogurt, and turkey are some examples. Tryptophan increases levels of certain chemicals (neurotransmitters) in your brain. Studies have shown that this has a calming and sleep-inducing effect. Get into the habit of establishing a pre-sleep ritual. Examples of some things that can help you get to sleep include taking a warm bath or reading just before going to bed. Improve your sleep environment. For example, block out any distracting noise, eliminate as much light as you can, adjust the room to a comfortable temperature, and be sure to have comfortable bedding. Make sure that your bed is only used for sleeping. In time, your mind will associate your bed with sleep. Exercise regularly, but not right before bed. Regular exercise can help deepen sleep. However, strenuous exercise too close to bedtime may be stimulating and lessen your ability to fall asleep. Stop smoking entirely. If you are not able to quit, do not smoke just before bedtime. Nicotine is a stimulant. In addition, many physical health problems, such as some chronic illnesses, arthritis, acid reflux (heartburn), and undiagnosed sleep disorders, can interfere with sleep. Certain medications used to treat these medical problems may also have sleeplessness as a side-effect. Psychological or mental health problems, including depression and anxiety can cause difficulty sleeping. You should follow up with your doctor for these issues, so that together, you can develop a plan for treatment. There are also medications to help you with sleep problems; however, they are only a short-term solution and can have undesirable side-effects. Remember, the sandra to the best overall improvement of sleep is to establish good sleep hygiene to help you fall asleep naturally. For more information, contact your doctor, or call or visit the National Sleep Foundation at www.sleepfoundation.org. documented in this encounter [facility] 09-10-2022 History of Present illness Narrative Reason for Visit Patient presents with: Follow Up: discuss meds and questions Rosalinda Russo is a 52 year old female who presents here today for Above Complaints.. Health Maintenance HEPATITIS B(1 of 3 - 3-dose series) MAMMOGRAM SHINGRIX VACCINE(1 of 2) INFLUENZA(1) DEPRESSION ASSESSMENT LIPID SCREEN HPI Anxiety and depression: has 2 non verbal kids at home who are 11 and 9, the wellbutrin helps with anxiety , depression and has helped a lot with weight loss. It has been very helpful for her to have this medication. HTN: Compliant with medications. Denies any chest pain, palpitations, or edema. No SOB. Doesn't check BP at home generally. Careful with diet to avoid salt, trying to eat more fruits and vegetables, exercises regularly. At home her bp is in the range of 117/68. Thinks she has to pass urine a little too frequently viral in the morning, does drink a cup of coffee. And right now she does not want to try any new medication for the bladder. Hypothyroidism. She is doing well on her current dose of Synthroid. Denies fatigue, cold intolerance and swelling in feet. TSH recently checked and normal. Has thinning of the hand which has been going on for the past few years. Her mother had the same issue and has sparse hair. Patient notes that because her mother has sparse hair and this is likely hereditary but would like to see if there is anything she can do to help with this extremity thinning. No problem-specific Assessment & Plan notes found for this encounter. PAST MEDICAL HISTORY Diagnosis Date Benign hypertension 09/03/2017 Hypothyroid Rosacea PAST SURGICAL HISTORY Procedure Laterality Date SECTION HX 01/2013 [facility] CHOLECYSTECTOMY 2009 [facility] HERNIA REPAIR HX 11/2013 Dr Hurtado [facility] LAPAROSCOPY REPAIR INCISIONAL HERNIA REDUCIBLE 07/2013 [facility] FAMILY HISTORY Problem Relation Age of Onset Diabetes Father Cancer Father liver Diabetes Maternal Grandmother Diabetes Paternal Grandmother Diabetes Paternal Grandfather Hypertension Sister Social History Tobacco Use Smoking status: Never Smokeless tobacco: Never Substance Use Topics Drug use: No Past medical history, appointments, medications, allergies reviewed. Pertinent Lab/Diagnostic Studies are reviewed and discussed today Current Outpatient Medications: lisinopril-hydroCHLOROthiazide (PRINZIDE,ZESTORETIC) 20-12.5 mg per tablet buPROPion XL (WELLBUTRIN XL) 300 mg 24 hr tablet amLODIPine (NORVASC) 5 mg tablet SYNTHROID 100 mcg tablet Azelaic Acid (FINACEA) 15 % gel amLODIPine (NORVASC) 5 mg tablet cyanocobalamin (VITAMIN B-12) 1,000 mcg tab Cholecalciferol, Vitamin D3, 2,000 unit cap Review of Systems CONSTITUTIONAL: No fevers, chills night sweats, unintended weight loss CARDIOVASCULAR: No chest pain, dyspnea, palpitations, orthopnea, PND, ankle edema. PULM: No dyspnea, unexplained cough. GI: No dysphagia/odynophagia, problematic reflux, constipation, diarrhea, changes in stool habits, hematochezia, melena. : No new urinary complaints, including dysuria, gross hematuria or pyuria. NEURO: No new balance problems, peripheral weakness/paresthesias or numbness of concern. Physical Exam BP 132/66 (BP Site: Left Arm, BP Position: Sitting, BP Cuff Size: Large Adult) Pulse 90 Temp 36.7 C (98.1 F) Resp 12 Ht 160 cm (5' 3) Wt 70.3 kg (155 lb) LMP 08/11/2017 (Approximate) SpO2 98% BMI 27.46 kg/m General appearance: Well appearing, alert, in no acute distress, well nourished. Skin: Skin color, texture, turgor normal, no suspicious rashes or lesions Head: Normocephalic, no masses, lesions, tenderness or abnormalities Eyes: Anicteric sclera. Pupils are equally round and reactive to light. Extraocular movements are intact. Lungs: Lungs clear to auscultation. No wheezing, rhonchi, rales Heart: RRR without murmur, gallop, or rubs. Extremities: No deformities, edema, skin discoloration, clubbing or cyanosis. Good capillary refill. ASSESSMENT/PLAN: 1. Anxiety and depression - ICD9: 300.00, 311, ICD10: F41.9, F32.A (primary diagnosis) Cont the wellbutrin as it is working well for her 2. Overweight (BMI 25.0-29.9) - ICD9: 278.02, ICD10: E66.3 Stable She is very happy with her weight 3. Benign hypertension - ICD9: 401.1, ICD10: I10 - good control - Recommended regular aerobic exercise. - Recommend home blood pressure monitoring, to bring results in on next visit - Goal of BP <130/80 4. Special screening for malignant neoplasms, colon - ICD9: V76.51, ICD10: Z12.11 - COLONOSCOPY SCREENING 5. Hair loss - ICD9: 704.00, ICD10: L65.9 - CONSULT TO DERMATOLOGY Eden Petersen MD [facility] OPEN ACCESS QUESTIONNAIRE 1. Are you currently having any new or unusual stomach/gastrointestinal issues at this time such as constipation, diarrhea, abdominal pain, rectal bleeding etc?No 2. Do you have any difficulty swallowing? No 3. Do you have any implanted devices such as a defibrillator, pacemaker, cardiac stents or deep brain stimulator? No 4. Do you take any Blood thinners such as Coumadin, Plavix, Xarelto, Eliquis, Brilinta or any other blood thinner? No 5. Do you have any new or past cardiac (heart) or pulmonary (lung) issues? No 6. Do you currently use any oxygen? No 7. Have you been hospitalized in the past 6 weeks? No 8. Have you had difficulty with anesthesia previously re: Difficult intubation? No Other difficulty or allergic reaction to anesthesia other than post op N/V? No 9. Are you on dialysis? No 10. Do you have any bleeding disorders such as hemophilia or Factor 5? No 11. Are you an Insulin Dependent Diabetic? No IF ANY OF THE TOP ELEVEN QUESTIONS ARE ANSWERED YES PLEASE SCHEDULE THE PATIENT FOR A CONSULT. N/A 12. Is the patient's BMI 40 or greater? No:Body mass index is 26.61 kg/m .. 13. Do you take any narcotics or anti-Anxiety medications? No 14. Do you use any illegal or recreational drugs including marijuana? No 15. Any alcohol use: No. 16. Have you been diagnosed with chronic liver disease such as hepatitis or cirrhosis? No 17. Do you have a seizure disorder? No 18. Do you have ulcerative colitis or Crohn's disease? No 19. Are you or could you be ? No 20. Any other important health information we should be made aware of prior to your colonoscopy? No To be completed by LIP: Did patient have MAC anesthesia with a previous endoscopy procedure? No Patient appropriate for Open Access Colonoscopy: No: NOT appropriate for Open Access Procedure Checklist: Prior to closing the encounter: Complete questionnaire: Yes Confirm Prep order has been Ordered/Pended: Yes. Patient's procedure could be delayed if not given the script for the prep. Please ensure the prep is escripted to pharmacy or printed. Instructions for the prep will print upon filing or pending this smartset. Please send all open access questionnaires to [facility] Pool #[id number] documented in this encounter [facility] 09-05-2022 Miscellaneous Notes Patient over due for followup. Thank you Judith Howell APRN.CNP Patient has been identified by name and date of : Yes, Provider Kecia Date 09/05/22 Time 9:07am Patient phones for refill(s): Requested Prescriptions Pending Prescriptions Disp Refills amLODIPine (NORVASC) 5 mg tablet 90 tablet 0 Sig: Take 1 tablet by mouth once daily. Date of last office visit in primary care: 01/02/22 Last 2 Encounter Wt Readings: Date: Wt: 01/02/2022 78.9 kg (174 lb) 12/25/2020 89.4 kg (197 lb) Previous labs/tests for medication: Blood Pressure: BUN (mg/dL) Date Value 12/23/2021 18 12/21/2020 13 Sodium (mmol/L) Date Value 12/23/2021 140 12/21/2020 138 Last 1 Encounter BP Readings: Date: BP: 01/02/2022 126/78 Please advise. Thank you. Arina Solis LPN documented in this encounter [facility] 04-28-2022 Miscellaneous Notes Patient has been identified by name and date of : Yes Patient phones for refill(s): Requested Prescriptions Pending Prescriptions Disp Refills buPROPion XL (WELLBUTRIN XL) 300 mg 24 hr tablet [Pharmacy Med Name: BUPROPION HCL XL 300 MG TABLET] 90 tablet 1 Sig: TAKE 1 TABLET BY MOUTH EVERY DAY Date of last office visit in primary care: 01/02/22 Last 2 Encounter Wt Readings: Date: Wt: 01/02/2022 78.9 kg (174 lb) 12/25/2020 89.4 kg (197 lb) Previous labs/tests for medication: Not applicable Please advise. Thank you. Isidra Mao LPN documented in this encounter [facility] 04-02-2022 Miscellaneous Notes Patient has been identified by name and date of : Yes Patient phones for refill(s): Requested Prescriptions Pending Prescriptions Disp Refills lisinopril-hydroCHLOROthiazide (PRINZIDE,ZESTORETIC) 20-12.5 mg per tablet 90 tablet 0 Sig: Take 1 tablet by mouth once daily. Date of last office visit in primary care: 01/02/22 Last 2 Encounter Wt Readings: Date: Wt: 01/02/2022 78.9 kg (174 lb) 12/25/2020 89.4 kg (197 lb) Previous labs/tests for medication: Blood Pressure: BUN (mg/dL) Date Value 12/23/2021 18 12/21/2020 13 Sodium (mmol/L) Date Value 12/23/2021 140 12/21/2020 138 Last 1 Encounter BP Readings: Date: BP: 01/02/2022 126/78 Please advise. Thank you. Rosanna Aguirre LPN documented in this encounter [facility] 04-01-2022 Miscellaneous Notes Patient has been identified by name and date of : Yes Patient phones for refill(s): Requested Prescriptions Pending Prescriptions Disp Refills lisinopril-hydroCHLOROthiazide (PRINZIDE,ZESTORETIC) 20-12.5 mg per tablet 90 tablet 0 Sig: Take 1 tablet by mouth once daily. Date of last office visit in primary care: 01/02/22 Last 2 Encounter Wt Readings: Date: Wt: 01/02/2022 78.9 kg (174 lb) 12/25/2020 89.4 kg (197 lb) Previous labs/tests for medication: Blood Pressure: BUN (mg/dL) Date Value 12/23/2021 18 12/21/2020 13 Sodium (mmol/L) Date Value 12/23/2021 140 12/21/2020 138 Last 1 Encounter BP Readings: Date: BP: 01/02/2022 126/78 Please advise. Thank you. Isidra Mao LPN documented in this encounter [facility] 03-28-2022 Miscellaneous Notes Patient has been identified by name and date of : Yes Patient phones for refill(s): Requested Prescriptions Pending Prescriptions Disp Refills SYNTHROID 100 mcg tablet 90 tablet 5 Sig: Take 1 tablet by mouth once daily. Take on empty stomach Date of last office visit in primary care: 01/02/22 Last 2 Encounter Wt Readings: Date: Wt: 01/02/2022 78.9 kg (174 lb) 12/25/2020 89.4 kg (197 lb) Previous labs/tests for medication: Thyroid: TSH Date Value 12/23/2021 2.980 mIU/L 12/21/2020 4.150 uU/mL Please advise. Thank you. Joie Wallace LPN documented in this encounter [facility] 01-02-2022 History of Present illness Narrative CC: Patient presents with: Physical HPI Rosalinda Russo is a 51 year old female who presents today for annual physical exam. Denies any complaints, but has noticed that she doesn't feel she fully empties her bladder in the morning. States her mornings are very hectic while trying to get her 2 nonverbal autistic children ready for the bus. She does not wake up during the night to urinate, denies incontinence, abdominal pain, difficulty or pain with urinating. Her morning routine is that she wakes up, uses the restroom, and then starts getting kids ready for the bus, she will then notice she has to urinate again. Does not have this feeling at any other time during the day after the second urination. Does admit she does not think she takes the time to fully empty her bladder in the AM because she is in such a mckeon to get kids ready. Exercise: works out regularly 7 times per week with stationary bicycling and rowing machine. Diet: Watches diet for salt (salty snacks, added salt, processed frozen/canned foods), sugary/sweet snacks, unhealthy fats: No Caffeine: 2 cups a day Water intake: 2-4 bottles of water a day Depression and anxiety - feels it is well controlled with wellbutrin and her regular exercise routine. Sleep: is described as normal Appetite: good Stresses: Major stressor: Nonverbal children Suicidal Thoughts: No suicidal ideation, intent or plan Support: Comes from multiple sources including Has a small bump that she would like looked at. noticed it and patient unsure how long it has been there or if it getting larger. Denies and pain to area. REVIEW OF SYSTEMS General: no fevers, no chills, no night sweats, no recurrent infections, no change in appetite, no change in energy and no significant changes in weight Respiratory: no cough, no wheezing, no shortness of breath, no hemoptysis Cardiovascular: no chest pain, no chest pressure, no palpitations and no swelling GI: No nausea, vomiting, or diarrhea : See HPI Skin: Negative for lesions, rash, and itching. Psych: See HPI Endocrine: no fatigue, no cold intolerance, no heat intolerance, no polyuria, no polyphagia and no polydipsia Neurologic: No headache, weakness, numbness, tingling, dizziness, syncope. CP PHQ9 01/02/2022 Little interest or pleasure 0 - Not at all Feeling down, depressed, hopeless 1 - Several days Trouble falling or staying asleep, sleeping too much 0 - Not at all Feeling tired, having little energy 2 - More than half the days Poor appetite or overeating 0 - Not at all Feeling bad about yourself, failure or you have let yourself/family down 0 - Not at all Trouble concentrating on things 2 - More than half the days Moving or speaking so slowly, or fidgety or restless 0 - Not at all Thoughts that you would be better off , or of hurting yourself in some way 0 - Not at all How difficult have these problems made things Somewhat difficult Interpretation of Total Score 5-9 Mild depression CELESTINE-7 ANXIETY SCALE 01/02/2022 FEELING NERVOUS,ANXIOUS,OR ON EDGE 1 Several days NOT BEING ABLE TO STOP OR CONTROL WORRYING 1 Several days WORRYING TOO MUCH ABOUT DIFFERENT THINGS 0 Not at all sure TROUBLE RELAXING 0 Not at all sure BEING SO RESTLESS THAT IT'S HARD TO SIT STILL 0 Not at all sure BEING EASILY ANNOYED OR IRRITABLE 0 Not at all sure FEELING AFRAID IF SOMETHING AWFUL MIGHT HAPPEN 0 Not at all sure GAD7 SCORE 2 IF YOU CHECKED OFF ANY PROBLEMS Somewhat difficult PAST MEDICAL HISTORY Diagnosis Date Benign hypertension 09/03/2017 Hypothyroid Rosacea PAST SURGICAL HISTORY Procedure Laterality Date SECTION HX 01/2013 [facility] HERNIA REPAIR HX 11/2013 Dr Hurtado [facility] REPAIR [facility]AL GALLBLADDER 2009 [facility] ALLERGIES Patient has no known allergies. MEDICATIONS amLODIPine (NORVASC) 5 mg tablet Take 1 tablet by mouth once daily. amLODIPine (NORVASC) 5 mg tablet Take 1 tablet by mouth once daily. buPROPion XL (WELLBUTRIN XL) 300 mg 24 hr tablet TAKE 1 TABLET BY MOUTH EVERY DAY lisinopril-hydroCHLOROthiazide (PRINZIDE,ZESTORETIC) 20-12.5 mg per tablet Take 1 tablet by mouth once daily. SYNTHROID 100 mcg tablet Take 1 tablet by mouth once daily. Take on empty stomach Azelaic Acid (FINACEA) 15 % gel Apply 1 application to affected area twice daily. cyanocobalamin (VITAMIN B-12) 1,000 mcg tab Take 1 tablet by mouth once daily. Cholecalciferol, Vitamin D3, 2,000 unit cap Take 1 tablet by mouth once daily. FAMILY HISTORY Problem Relation Age of Onset Diabetes Father Cancer Father liver Diabetes Maternal Grandmother Diabetes Paternal Grandmother Diabetes Paternal Grandfather Hypertension Sister Social History Tobacco Use Smoking status: Never Smoker Smokeless tobacco: Never Used Substance Use Topics Alcohol use: Not on file Drug use: No PHYSICAL EXAM BP 126/78 Pulse 72 Resp 14 Ht 160 cm (5' 3) Wt 78.9 kg (174 lb) LMP 08/11/2017 (Approximate) SpO2 99% BMI 30.82 kg/m General Appearance: well appearing, in no acute distress, alert Skin: Skin color, texture, turgor normal for age; Redness to nose and bilateral cheeks consistent with rosacea. Not tender small epidermoid cyst to left side of back. No redness, fluctuation, tenderness, drainage. Or discoloration Eyes: conjunctiva pink and moist, no icterus, sclera white, non-injected Neck: Thyroid normal size and symmetric without palpable nodules, No adenopathy Lymph nodes: No cervical lymphadenopathy and No supraclavicular lymphadenopathy Lungs: Lungs clear to auscultation. No wheezing, rhonchi, rales. Heart: RRR without murmur, gallop, or rubs. No ectopy BUE Extremities: No deformities, edema, skin discoloration, clubbing or cyanosis. Good capillary refill. HEPATITIS C SCREENING Never done HIV SCREENING Never done DTAP,TDAP,TD(1 - Tdap) Never done HPV TESTING Never done COLORECTAL CANCER SCREENING Never done MAMMOGRAM due on 03/05/2018 DEPRESSION SCREENING due on 12/22/2021 LIPID SCREEN due on 09/03/2022 ANNUAL PCP TEAM CHRONIC DISEASE VISIT due on 01/02/2023 BP CONTROLLED (<130/80) due on 01/02/2023 DIABETES SCREEN due on 12/23/2024 PAP TESTING due on 01/17/2026 INFLUENZA Completed COVID-19 VACCINE Completed ASSESSMENT/PLAN: 1. Annual physical exam - ICD9: V70.0, ICD10: Z00.00 (primary diagnosis) - Counseled on healthy diet and regular exercise - Calcium intake with supplements or by diet of 1000 mg/day for under 50, 0611-9202 mg/day for 50+ - Discussed need and benefit for weight loss. BMI 30.82 kg/(m^2) - Depression screening tool completed and reviewed with patient. Based on score and interview, patient is already diagnosed with depression and recommended no further intervention at this time. - Follow up for annual exam in one year 2. Benign hypertension - ICD9: 401.1, ICD10: I10 - good control - Continue current medication(s) - Encouraged dietary sodium restriction/DASH diet - Recommended regular aerobic exercise. - Recommend home blood pressure monitoring, to bring results in on next visit - Goal of BP <130/80 - COMP METABOLIC PANEL 3. Epidermoid cyst - ICD9: 706.2, ICD10: L72.0 - no redness tenderness, drainage and not large. Since it is not concerning on exam and patient isn't too concerned about it will continue to monitor and can put warm wet compresses to area. - Follow up for tenderness, increase in size, Drainage, or redness for re-evaluation 4. Urinary retention - ICD9: 788.20, ICD10: R33.9 - behavioral - patient not having this any other time except when rushing trying to get children ready for school. Discussed giving her self time in the morning to fully empty her bladder, but if this continues with the time allowance, increases, painful or any other concerning symptoms will look into this further. 5. Anxiety and depression - ICD9: 300.00, 311, ICD10: F41.9, F32.A - controlled at this time - continue with same medications - Reviewed concept of neurochemical imbalance wth depression/anxiety, treatment options and benefits of counseling in combination with medication. Also reviewed benefits of sleep hygeine, diet and exercise - Follow-up in 6 months or sooner as needed - Instructed patient to contact office or [id number] after-hours promptly should condition worsen or any new symptoms appear. - Counseling Center [facility] and after hours crisis line 6. Acne rosacea - ICD9: 695.3, ICD10: L71.9 - gel refilled as previously prescribed 7. Acquired hypothyroidism - ICD9: 244.9, ICD10: E03.9 - Instructed patient on importance of taking on an empty stomach either first thing in the morning or at bedtime. - TSH normal and patient asymptomatic, continue current dose 8. Lipid screening - ICD9: V77.91, ICD10: Z13.220 - COMP METABOLIC PANEL - LIPID PANEL BASIC Prescription instructions reviewed with patient as applicable. Potential red flag symptoms discussed with the patient. Reviewed appropriate action plan to take if red flag symptoms occur. Patient agreeable to treatment plan. Judith Howell APRN.CNP documented in this encounter [facility] 12-09-2021 Miscellaneous Notes Patient has been identified by name and date of : Yes Patient phones for refill(s): Pending Prescriptions Disp Refills AMLODIPINE 5 MG TABLET 90 tablet 0 Sig: Take 1 tablet by mouth once daily. LETICIA: No Date of last office visit in primary care: 02/05/21 Last 2 Encounter Wt Readings: Date: Wt: 12/25/2020 89.4 kg (197 lb) 08/18/2019 90.7 kg (200 lb) Previous labs/tests for medication: Blood Pressure: BUN (mg/dL) Date Value 12/21/2020 13 Sodium (mmol/L) Date Value 12/21/2020 138 Last 1 Encounter BP Readings: Date: BP: 12/25/2020 136/94 Please advise. Thank you. sIidra Mao LPN documented in this encounter [facility] 12-06-2021 Miscellaneous Notes Patient has been identified by name and date of : Yes Patient phones for refill(s): Pending Prescriptions Disp Refills AMLODIPINE 5 MG TABLET 90 tablet 0 Sig: Take 1 tablet by mouth once daily. LETICIA: No Date of last office visit in primary care: 02/05/21 Last 2 Encounter Wt Readings: Date: Wt: 12/25/2020 89.4 kg (197 lb) 08/18/2019 90.7 kg (200 lb) Previous labs/tests for medication: Blood Pressure: BUN (mg/dL) Date Value 12/21/2020 13 Sodium (mmol/L) Date Value 12/21/2020 138 Last 1 Encounter BP Readings: Date: BP: 12/25/2020 136/94 Please advise. Thank you. Isidra Mao LPN documented in this encounter [facility] 03-13-2017 History of Past i llness Narrative Problem Noted Date Resolved Date Obesity (BMI 30.0-34.9) 03/13/2017 09/10/19 Last Assessment & Plan: She is not Exercising as much as she did in the past. documented as of this encounter (statuses as of 09/10/2022) [facility]-04-2017 History of Past illness Narrative* Problem Noted Date Resolved Date Obesity (BMI 30.0-34.9) 03/13/2017 09/10/19 Last Assessment & Plan: She is not Exercising as much as she did in the past. documented as of this encounter (statuses as of 10/02/2022) [facility]2017 History of Past illness Narrative* Problem Noted Date Resolved Date Obesity (BMI 30.0-34.9) 03/13/2017 09/10/19 Last Assessment & Plan: She is not Exercising as much as she did in the past. documented as of this encounter (statuses as of 10/29/2022) [facility]2017 History of Past illness Narrative* Problem Noted Date Resolved Date Obesity (BMI 30.0-34.9) 03/13/2017 09/10/19 Last Assessment & Plan: She is not Exercising as much as she did in the past. documented as of this encounter (statuses as of 11/10/2022) [facility]2017 History of Past illness Narrative* Problem Noted Date Diagnosed Date Resolved Date Obesity (BMI 30.0-34.9) 03/13/201708/2022 Last Assessment & Plan: She is not Exercising as much as she did in the past. documented as of this encounter (statuses as of 02/27/2023) [address]04-2017 History of Past illness Narrative* Problem Noted Date Diagnosed Date Resolved Date Obesity (BMI 30.0-34.9) 03/13/201708/2022 Last Assessment & Plan: She is not Exercising as much as she did in the past. documented as of this encounter (statuses as of 04/02/2023) [facility]2017 History of Past illness Narrative* Problem Noted Date Diagnosed Date Resolved Date Obesity (BMI 30.0-34.9) 03/13/201708/2022 Last Assessment & Plan: She is not Exercising as much as she did in the past. documented as of this encounter (statuses as of 04/02/2023) [place] [address]-04-2017 History of Past illness Narrative* Problem Noted Date Diagnosed Date Resolved Date Obesity (BMI 30.0-34.9) 03/13/201708/2022 Last Assessment & Plan: She is not Exercising as much as she did in the past. documented as of this encounter (statuses as of 04/03/2023) [address]04-2017 History of Past illness Narrative* Problem Noted Date Diagnosed Date Resolved Date Obesity (BMI 30.0-34.9) 03/13/201708/2022 Last Assessment & Plan: She is not Exercising as much as she did in the past. documented as of this encounter (statuses as of 04/08/2023) [facility]2017 History of Past illness Narrative* Problem Noted Date Diagnosed Date Resolved Date Obesity (BMI 30.0-34.9) 03/13/201708/2022 Last Assessment & Plan: She is not Exercising as much as she did in the past. documented as of this encounter (statuses as of 04/08/2023) [facility]2017 History of Past illness Narrative* Problem Noted Date Diagnosed Date Resolved Date Obesity (BMI 30.0-34.9) 03/13/201708/2022 Last Assessment & Plan: She is not Exercising as much as she did in the past. documented as of this encounter (statuses as of 04/09/2023) [address]04-2017 History of Past illness Narrative* Problem Noted Date Diagnosed Date Resolved Date Obesity (BMI 30.0-34.9) 03/13/201708/2022 Last Assessment & Plan: She is not Exercising as much as she did in the past. documented as of this encounter (statuses as of 04/10/2023) [facility]2017 History of Past illness Narrative* Problem Noted Date Diagnosed Date Resolved Date Obesity (BMI 30.0-34.9) 03/13/201708/2022 Last Assessment & Plan: She is not Exercising as much as she did in the past. documented as of this encounter (statuses as of 04/10/2023) [place] [address]-04-2017 History of Past illness Narrative* Problem Noted Date Diagnosed Date Resolved Date Obesity (BMI 30.0-34.9) 03/13/201708/2022 Last Assessment & Plan: She is not Exercising as much as she did in the past. documented as of this encounter (statuses as of 04/15/2023) [address]04-2017 History of Past illness Narrative* Problem Noted Date Diagnosed Date Resolved Date Obesity (BMI 30.0-34.9) 03/13/201708/2022 Last Assessment & Plan: She is not Exercising as much as she did in the past. documented as of this encounter (statuses as of 04/15/2023) [facility]2017 History of Past illness Narrative* Problem Noted Date Diagnosed Date Resolved Date Obesity (BMI 30.0-34.9) 03/13/201708/2022 Last Assessment & Plan: She is not Exercising as much as she did in the past. documented as of this encounter (statuses as of 04/23/2023) [facility]2017 History of Past illness Narrative* Problem Noted Date Diagnosed Date Resolved Date Obesity (BMI 30.0-34.9) 03/13/201708/2022 Last Assessment & Plan: She is not Exercising as much as she did in the past. documented as of this encounter (statuses as of 04/24/2023) [facility]2017 History of Past illness Narrative* Problem Noted Date Diagnosed Date Resolved Date Obesity (BMI 30.0-34.9) 03/13/201708/2022 Last Assessment & Plan: She is not Exercising as much as she did in the past. documented as of this encounter (statuses as of 04/24/2023) [facility]2017 History of Past illness Narrative* Problem Noted Date Diagnosed Date Resolved Date Obesity (BMI 30.0-34.9) 03/13/201708/2022 Last Assessment & Plan: She is not Exercising as much as she did in the past. documented as of this encounter (statuses as of 04/24/2023) [facility]2017 History of Past illness Narrative* Problem Noted Date Diagnosed Date Resolved Date Obesity (BMI 30.0-34.9) 03/13/201708/2022 Last Assessment & Plan: She is not Exercising as much as she did in the past. documented as of this encounter (statuses as of 05/01/2023) [facility]2017 History of Past illness Narrative* Problem Noted Date Diagnosed Date Resolved Date Obesity (BMI 30.0-34.9) 03/13/201708/2022 Last Assessment & Plan: She is not Exercising as much as she did in the past. documented as of this encounter (statuses as of 05/16/2023) [facility]2017 History of Past illness Narrative* Problem Noted Date Diagnosed Date Resolved Date Obesity (BMI 30.0-34.9) 03/13/201708/2022 Last Assessment & Plan: She is not Exercising as much as she did in the past. documented as of this encounter (statuses as of 06/03/2023) [facility]2017 History of Past illness Narrative* Problem Noted Date Diagnosed Date Resolved Date Obesity (BMI 30.0-34.9) 03/13/201708/2022 Last Assessment & Plan: She is not Exercising as much as she did in the past. documented as of this encounter (statuses as of 07/06/2023) [facility]2017 History of Past illness Narrative* Problem Noted Date Diagnosed Date Resolved Date Obesity (BMI 30.0-34.9) 03/13/201708/2022 Last Assessment & Plan: She is not Exercising as much as she did in the past. documented as of this encounter (statuses as of 07/15/2023) [facility]2017 History of Past illness Narrative* Problem Noted Date Diagnosed Date Resolved Date Obesity (BMI 30.0-34.9) 03/13/201708/2022 Last Assessment & Plan: She is not Exercising as much as she did in the past. documented as of this encounter (statuses as of 09/18/2023) [address]04-2017 History of Past illness Narrative* Problem Noted Date Diagnosed Date Resolved Date Obesity (BMI 30.0-34.9) 03/13/201708/2022 Last Assessment & Plan: She is not Exercising as much as she did in the past. documented as of this encounter (statuses as of 10/19/2023) [address]04-2017 History of Past illness Narrative* Problem Noted Date Diagnosed Date Resolved Date Obesity (BMI 30.0-34.9) 03/13/201708/2022 Last Assessment & Plan: She is not Exercising as much as she did in the past. documented as of this encounter (statuses as of 10/27/2023) [address]04-2017 History of Past illness Narrative* Problem Noted Date Diagnosed Date Resolved Date Obesity (BMI 30.0-34.9) 03/13/201708/2022 Last Assessment & Plan: She is not Exercising as much as she did in the past. documented as of this encounter (statuses as of 10/28/2023) [place] [address]04-2017 History of Past illness Narrative* Problem Noted Date Diagnosed Date Resolved Date Obesity (BMI 30.0-34.9) 03/13/201708/2022 Last Assessment & Plan: She is not Exercising as much as she did in the past. documented as of this encounter (statuses as of 10/30/2023) [place] [address]04-2017 History of Past illness Narrative* Problem Noted Date Diagnosed Date Resolved Date Obesity (BMI 30.0-34.9) 03/13/201708/2022 Last Assessment & Plan: She is not Exercising as much as she did in the past. documented as of this encounter (statuses as of 11/03/2023) [place] [address]04-2017 History of Past illness Narrative* Problem Noted Date Diagnosed Date Resolved Date Obesity (BMI 30.0-34.9) 03/13/201708/2022 Last Assessment & Plan: She is not Exercising as much as she did in the past. documented as of this encounter (statuses as of 11/18/2023) [facility]2017 History of Past illness Narrative* Problem Noted Date Diagnosed Date Resolved Date Obesity (BMI 30.0-34.9) 03/13/201708/2022 Last Assessment & Plan: She is not Exercising as much as she did in the past. documented as of this encounter (statuses as of 11/19/2023) [address]04-2017 History of Past illness Narrative* Problem Noted Date Diagnosed Date Resolved Date Obesity (BMI 30.0-34.9) 03/13/201708/2022 Last Assessment & Plan: She is not Exercising as much as she did in the past. documented as of this encounter (statuses as of 11/23/2023) [facility]2017 History of Past illness Narrative* Problem Noted Date Diagnosed Date Resolved Date Obesity (BMI 30.0-34.9) 03/13/201708/2022 Last Assessment & Plan: She is not Exercising as much as she did in the past. documented as of this encounter (statuses as of 11/24/2023) [facility]2017 History of Past illness Narrative* Problem Noted Date Diagnosed Date Resolved Date Obesity (BMI 30.0-34.9) 03/13/201708/2022 Last Assessment & Plan: She is not Exercising as much as she did in the past. documented as of this encounter (statuses as of 11/27/2023) [address]04-2017 History of Past illness Narrative* Problem Noted Date Diagnosed Date Resolved Date Obesity (BMI 30.0-34.9) 03/13/201708/2022 Last Assessment & Plan: She is not Exercising as much as she did in the past. documented as of this encounter (statuses as of 09/19/2023) [facility] note* Diagnosis Encounter for screening mammogram for breast cancer documented in this encounter [facility] Diagnosis Benign hypertension Essential hypertension, benign Acquired hypothyroidism Unspecified hypothyroidism documented in this encounter [facility] note* Diagnosis Annual physical exam- Primary Routine general medical examination at a health care facility Benign hypertension Essential hypertension, benign Epidermoid cyst Sebaceous cyst Urinary retention Retention of urine, unspecified Anxiety and depression Dysthymic disorder Acne rosacea Rosacea Acquired hypothyroidism Unspecified hypothyroidism Lipid screening Screening for lipoid disorders documented in this encounter [facility] [facility]* Diagnosis Anxiety and depression- Primary Dysthymic disorder Overweight (BMI 25.0-29.9) Overweight Benign hypertension Essential hypertension, benign Special screening for malignant neoplasms, colon Hair loss Alopecia, unspecified documented in this encounter [facility] note* Diagnosis Encounter for screening for malignant neoplasm of colon- Primary Special screening for malignant neoplasms, colon documented in this encounter [facility] note* Diagnosis Encounter for screening mammogram for breast cancer documented in this encounter [facility] [place] [facility]* Diagnosis Benign hypertension Essential hypertension, benign [facility] noteNo assessment information availableWCoshoct[facility] Work Phone: Evaluation note* Diagnosis Leukocytosis, unspecified type- Primary documented in this encounter [facility] [place] [facility]* Diagnosis Leukemoid reaction documented in this encounter [facility] note* Diagnosis Leukemoid reaction- Primary [facility] Diagnosis Acquired hypothyroidism- Primary Unspecified hypothyroidism CML (chronic myelocytic leukemia) (HCC) Chronic myeloid leukemia, without mention of having achieved remission Medication management Encounter for long-term (current) use of other medications High triglycerides Pure hyperglyceridemia Benign hypertension Essential hypertension, benign Rash Rash and other nonspecific skin eruption [facility] Diagnosis CML (chronic myeloid leukemia) (HCC)- Primary Chronic myeloid leukemia, without mention of having achieved remission documented in this encounter [facility] [place] [facility]* Diagnosis CML (chronic myeloid leukemia) (HCC)- Primary Chronic myeloid leukemia, without mention of having achieved remission [facility] Diagnosis CML (chronic myeloid leukemia) (HCC)- Primary Chronic myeloid leukemia, without mention of having achieved remission [facility] Benign hypertension- Primary Essential hypertension, benign Anxiety and depression Dysthymic disorder Insomnia, unspecified type [facility] Diagnosis Encounter for screening mamm[facility] for [facility] cancer [facility] Diagnosis CML (chronic myeloid leukemia) (HCC)- Primary Chronic myeloid leukemia, without mention of having achieved remission [facility] Diagnosis CML (chronic myeloid leukemia) (HCC)- Primary Chronic myeloid leukemia, without mention of having achieved remission [facility] Diagnosis Benign hypertension- Primary Essential hypertension, benign Left hip pain Pain in joint, pelvic region and thigh Anxiety and depression Dysthymic disorder Numbness and tingling Disturbance of skin sensation Acquired hypothyroidism Unspecified hypothyroidism CML (chronic myelocytic leukemia) (HCC) Chronic myeloid leukemia, without mention of having achieved remission Eye exam, routine [facility] Diagnosis CML (chronic myeloid leukemia) (HCC)- Primary Chronic myeloid leukemia, without mention of having achieved remission [facility] Diagnosis CML (chronic myeloid leukemia) (HCC)- Primary Chronic myeloid leukemia, without mention of having achieved remission [facility] Diagnosis Acne rosacea- Primary Rosacea Acquired hypothyroidism Unspecified hypothyroidism Obesity (BMI 30.0-34.9) Obesity, unspecified Left hip pain Pain in joint, pelvic region and thigh [facility] Diagnosis Acne rosacea- Primary Rosacea Acquired hypothyroidism Unspecified hypothyroidism Obesity (BMI 30.0-34.9) Obesity, unspecified Abnormal menses- Primary Unspecified disorder of menstruation and other abnormal bleeding from female genital tract Acquired hypothyroidism Unspecified hypothyroidism [facility] Diagnosis Seborrheic keratosis- Primary Other seborrheic keratosis Epidermal inclusion cyst Sebaceous cyst Rosacea Androgenetic alopecia Other alopecia [facility] Diagnosis Acne rosacea- Primary Rosacea Acquired hypothyroidism Unspecified hypothyroidism Obesity (BMI 30.0-34.9) Obesity, unspecified CML (chronic myeloid leukemia) (HCC)- Primary Chronic myeloid leukemia, without mention of having achieved remission [facility] Diagnosis Encounter for gynecological examination with abnormal finding- Primary Menopause Symptomatic menopausal or female climacteric states Routine cervical smear Screening for malignant neoplasm of the cervix Menopausal symptoms Symptomatic menopausal or female climacteric states documented in this encounter [facility] note* Diagnosis Acne rosacea- Primary Rosacea Acquired hypothyroidism Unspecified hypothyroidism Obesity (BMI 30.0-34.9) Obesity, unspecified Scoliosis, unspecified scoliosis type, unspecified spinal region documented in this encounter [facility] note* Diagnosis Acne rosacea- Primary Rosacea Acquired hypothyroidism Unspecified hypothyroidism Obesity (BMI 30.0-34.9) Obesity, unspecified Vitamin D deficiency- Primary Unspecified vitamin D deficiency Iron deficiency Iron deficiency anemia, unspecified Spotting Other specified noninflammatory disorder of vagina Scoliosis, unspecified scoliosis type, unspecified spinal region Screening for HIV (human immunodeficiency virus) Special screening examination for other specified viral diseases documented in this encounter [facility] note* Diagnosis Acne rosacea- Primary Rosacea Acquired hypothyroidism Unspecified hypothyroidism Obesity (BMI 30.0-34.9) Obesity, unspecified Spotting Other specified noninflammatory disorder of vagina documented in this encounter [facility] note* Diagnosis Acne rosacea- Primary Rosacea Acquired hypothyroidism Unspecified hypothyroidism Obesity (BMI 30.0-34.9) Obesity, unspecified Scoliosis, unspecified scoliosis type, unspecified spinal region- Primary Degeneration of intervertebral disc of lumbar region, unspecified whether pain present Chronic bilateral back pain, unspecified back location documented in this encounter [facility] note* Diagnosis Acne rosacea- Primary Rosacea Acquired hypothyroidism Unspecified hypothyroidism Obesity (BMI 30.0-34.9) Obesity, unspecified Endometrial thickening on ultrasound- Primary Ovarian cyst, right Other and unspecified ovarian cyst documented in this encounter [facility] note* Diagnosis Acne rosacea- Primary Rosacea Acquired hypothyroidism Unspecified hypothyroidism Obesity (BMI 30.0-34.9) Obesity, unspecified Degeneration of intervertebral disc of lumbar region, unspecified whether pain present- Primary Thoracogenic scoliosis, unspecified spinal region Chronic bilateral low back pain, unspecified whether sciatica present documented in this encounter [facility] note* Diagnosis Acne rosacea- Primary Rosacea Acquired hypothyroidism Unspecified hypothyroidism Obesity (BMI 30.0-34.9) Obesity, unspecified CML (chronic myeloid leukemia) (HCC)- Primary Chronic myeloid leukemia, without mention of having achieved remission [facility] Acne rosacea- Primary Rosacea Acquired hypothyroidism Unspecified hypothyroidism Obesity (BMI 30.0-34.9) Obesity, unspecified Benign hypertension- Primary Essential hypertension, benign Screening for depression Encounter for screening examination for other mental health and behavioral disorders Acquired hypothyroidism Unspecified hypothyroidism Degeneration of intervertebral disc of lumbar region, unspecified whether pain present CML (chronic myelocytic leukemia) (HCC) Chronic myeloid leukemia, without mention of having achieved remission [facility] Diagnosis Acne rosacea- Primary Rosacea Acquired hypothyroidism Unspecified hypothyroidism Obesity (BMI 30.0-34.9) Obesity, unspecified Endometrial thickening on ultrasound- Primary [facility] Diagnosis Acne rosacea- Primary Rosacea Acquired hypothyroidism Unspecified hypothyroidism Obesity (BMI 30.0-34.9) Obesity, unspecified Endometrial thickening on ultrasound- Primary Ovarian cyst, right Other and unspecified ovarian cyst Adenomyosis of the uterus Paratubal cyst Other noninflammatory disorder of ovary, fallopian tube, and broad ligament [facility] Diagnosis Acne rosacea- Primary Rosacea Acquired hypothyroidism Unspecified hypothyroidism Obesity (BMI 30.0-34.9) Obesity, unspecified Endometrial thickening on ultrasound- Primary Scoliosis, unspecified scoliosis type, unspecified spinal region Degeneration of intervertebral disc of lumbar region, unspecified whether pain present Chronic bilateral back pain, unspecified back location [facility] Diagnosis Acne rosacea- Primary Rosacea Acquired hypothyroidism Unspecified hypothyroidism Obesity (BMI 30.0-34.9) Obesity, unspecified CML (chronic myeloid leukemia) (HCC)- Primary Chronic myeloid leukemia, without mention of having achieved remission [facility] Additional Instructions As discussed, your white blood cell count (leukocytes) is extremely elevated and concerning for leukemia. I spoke with Dr. Uribe. His office will call you tomorrow morning for close follow-up. If you do not hear from their office his information has been included for you. You will need further testing before definitive diagnosis and treatment plan can be made.[facility] Work [facility]: [facility] ([facility] Diagnostic Procedure Only (Routine) - Pending Review Specialty Diagnoses / Procedures Referred By Viky ball Referred To Contact [facility] Diagnoses Encounter for screening mammogram for breast cancer Procedures CHRIS SCREENING SCREENING MAMMOGRAPHY BI 2-VIEW BREAST INC Eden Eller MD [address] [place] [address] [facility] [address] [place] [address] Referral ID Status Reason Start Date Expiration Date Visits Requested Visits Authorized [id number] Pending Review Auto-Generat ed Referral 12/04/2021 01/03/2023 1 1 T [facility] for referral (narrative)* Diagnostic Procedure Only (Routine) - Pending Review Specialty Diagnoses / Procedures Referred By Viky ball Referred To Contact [facility] Diagnoses Encounter for screening mammogram for breast cancer Procedures CHRIS SCREENING SCREENING MAMMOGRAPHY BI 2-VIEW BREAST INC Eden Eller MD [address] [place] [address] [facility] [address] [place] [address] Referral ID Status Reason Start Date Expiration Date Visits Requested Visits Authorized [id number] Pending Review Auto-Generat ed Referral 11/05/2022 12/05/2023 1 1 T [facility] for referral (narrative)* Diagnostic Procedure Only (Routine) - Pending Review Specialty Diagnoses / Procedures Referred By Viky ball Referred To Contact [facility] Diagnoses Encounter for screening mammogram for breast cancer Procedures CHRIS SCREENING SCREENING MAMMOGRAPHY BI 2-VIEW BREAST INC Eden Eller MD [address] [place] [address] [facility] [address] [place] [address] Referral ID Status Reason Start Date Expiration Date Visits Requested Visits Authorized [id number] Pending Review Auto-Generat ed Referral 10/14/2023 11/12/2024 1 1 [facility] for referral (narrative)* Diagnostic Procedure Only (Routine) - Closed Specialty Diagnoses / Procedures Referred By Contac t Referred To Contact XR IMAGING Diagnoses Left hip pain Procedures XR HIP GENERAL 3V PELV/AP/LAT LEFT RADEX HIP UNILATERAL WITH PELVIS 2-3 VIEWS Judith Howell APRN.[employer] [employer] [address] [place] [address] [place] [address] Referral ID Status Reason Start Date Expiration Date V isits Requested Visits Authorized [id number] Closed Auto-Generate d Referral 12/17/2023 01/15/2025 1 1 * Consult, Test, Treat (Routine) - Authorized Specialty Diagnoses / Procedures Referred By Contac t Referred To Contact Ophthalmology Diagnoses Eye exam, routine Procedures CONSULT TO OPHTHALMOLOGY OFFICE/OUTPATIENT [facility] 60 MINUTES Judith Howell APRN.[employer] [address] [place] [address] Referral ID Status Reason Start Date Expiration Date Visits Requested Visits Authorized [id number] Authorized PCP Requested Referral 12/17/2023 12/16/2024 1 1 [facility] for referral (narrative)* Diagnostic Procedure Only (Routine) - Closed Specialty Diagnoses / Procedures Referred By Contac t Referred To Contact XR IMAGING Diagnoses Left hip pain Procedures XR HIP GENERAL 3V PELV/AP/LAT LEFT RADEX HIP UNILATERAL WITH PELVIS 2-3 VIEWS Judith Howell APRN.[employer] [address] [place] [address] [place] [address] Referral ID Status Reason Start Date Expiration Date V isits Requested Visits Authorized [id number] Closed Auto-Generate d Referral 12/17/2023 01/15/2025 1 1 [facility] for referral (narrative)* Diagnostic Procedure Only (Routine) - Closed Specialty Diagnoses / Procedures Referred By Contac t Referred To Contact XR IMAGING Diagnoses Scoliosis, unspecified scoliosis type, unspecified spinal region Procedures XR SCOLIOSIS PA STAND/LAT 2V RADEX ENTIR THRC LMBR CRV SAC SPI W/SKULL 2/3 VW Eden Petersen MD [address] [place] [address] [place] [address] Referral ID Status Reason Start Date Expiration Date V isits Requested Visits Authorized [id number] Closed Auto-Generate d Referral 06/21/2024 07/21/2025 1 1 * Diagnostic Procedure Only (Routine) - Authorized Specialty Diagnoses / Procedures Referred By Contac t Referred To Contact US IMAGING Diagnoses Spotting Procedures US FEMALE PELVIS TRANSVAG US TRANSVAGINAL Eden Petersen MD [address] [place] [address] [place] [address] Referral ID Status Reason Start Date Expiration Date Visits Requested Visits Authorized [id number] Authorized Auto-Generat ed Referral 4 07/21/2025 1 1 * Diagnostic Procedure Only (Routine) - Authorized Specialty Diagnoses / Procedures Referred By Contac t Referred To Contact US IMAGING Diagnoses Spotting Procedures US FEMALE PELVIS TRANSABD LTD US PELVIC NONOBSTETRIC IMAGE DCMTN LIMITED/F/U Eden Petersen MD [address] [place] [address] [place] [address] Referral ID Status Reason Start Date Expiration Date Visits Requested Visits Authorized [id number] Authorized Auto-Generat ed Referral 4 07/21/2025 1 1 [facility] Diagnostic Procedure Only (Routine) - Authorized Specialty Diagnoses / Procedures Referred By Contac t Referred To Contact [facility] Diagnoses Endometrial thickening on ultrasound Ovarian cyst, right Procedures PELVIC US WHI US PELVIC NONOBSTETRIC REAL-TIME IMAGE COMPLETE Marga Crowe MD [address] [place] [address] [facility] [address] [place] [address] Referral ID Status Reason Start Date Expiration Date Visits Requested Visits Authorized [id number] Authorized Auto-Generat ed Referral 09/05/2024 09/05/2025 1 1 [facility] for visit Narrative* Diagnostic Procedure Only (Routine) - Closed Specialty Diagnoses / Procedures Referred By Contac t Referred To Contact XR IMAGING Diagnoses Left hip pain Procedures XR HIP GENERAL 3V PELV/AP/LAT LEFT RADEX HIP UNILATERAL WITH PELVIS 2-3 VIEWS Judith Howell APRN.[employer] [address] [place] [address] Xr Imaging [facility] Referral ID Status Reason Start Date Expiration Date V isits Requested Visits Authorized [id number] Closed Auto-Generate d Referral 12/17/2023 01/15/2025 1 1 [facility] for visit Narrative* Diagnostic Procedure Only (Routine) - Closed Specialty Diagnoses / Procedures Referred By Contac t Referred To Contact XR IMAGING Diagnoses Scoliosis, unspecified scoliosis type, unspecified spinal region Procedures XR SCOLIOSIS PA STAND/LAT 2V RADEX ENTIR THRC LMBR CRV SAC SPI W/SKULL 2/3 VW Eden Petersen MD [address] [place] [address] [place] [address] Referral ID Status Reason Start Date Expiration Date V isits Requested Visits Authorized [id number] Closed Auto-Generate d Referral 06/21/2024 07/21/2025 1 1 [facility] for visit Narrative* Diagnostic Procedure Only (Routine) - Closed Specialty Diagnoses / Procedures Referred By Contac t Referred To Contact [facility] Diagnoses Endometrial thickening on ultrasound Ovarian cyst, right Procedures PELVIC US WHI US PELVIC NONOBSTETRIC REAL-TIME IMAGE COMPLETE Marga Crowe MD [address] [place] [address] Phone: tel: fax: [address] [address] Referral ID Status Reason Start Date Expiration Date V isits Requested Visits Authorized [id number] Closed Auto-Generate d Referral 09/05/2024 09/05/[address] [facility] Reason for Referral Specialty Diagnoses / Procedures Referred By Contac t Referred To Contact Dermatology Diagnoses Hair loss Procedures CONSULT TO DERMATOLOGY Eden Petersen MD [address] [place] [address] Referral ID Status Reason Start Date Expiration Date Visits Requested Visits Authorized [id number] Ref Not Required PCP Requested Referral 09/10/2022 09/10/2023 1 1 Specialty Diagnoses / Procedures Referred By Contac t Referred To Contact [facility] Diagnoses Special screening for malignant neoplasms, colon Procedures COLONOSCOPY SCREENING COLONOSCOPY FLX DX W/COLLJ SPEC WHEN PFRMD Eden Petersen MD [address] [place] [address] [address] Referral ID Status Reason Start Date Expiration Date Visits Requested Visits Authorized [id number] Pending Review Auto-Generat ed Referral 09/10/2022 09/10/2023 1 1 Specialty Diagnoses / Procedures Referred By Contac t Referred To Contact Dermatology Diagnoses Rash Procedures CONSULT TO DERMATOLOGY Judith Howell APRN.[employer] [address] [place] [address] Referral ID Status Reason Start Date Expiration Date Visits Requested Visits Authorized [id number] Ref Not Required PCP Requested Referral 04/30/2023 04/29/2024 1 1 Specialty Diagnoses / Procedures Referred By Contac t Referred To Contact Gynecology Diagnoses Abnormal menses Procedures CONSULT TO GYNECOLOGY OFFICE/OUTPATIENT NEW HIGH MDM 60 MINUTES Judith Howell APRN.[employer] [address] [place] [address] Referral ID Status Reason Start Date Expiration Date Visits Requested Visits Authorized [id number] Authorized PCP Requested Referral Auto-Generate d Referral 04/20/2024 04/20/2025 1 1 Summary Purpose Family History No Family History Records FoundNo Family History Records FoundNo Family History Records FoundNo Family History Records FoundNo Family History Records Found Advance Directives No Advanced Directives Records Found Advance Directive Response Recorded Date/ Time Living Will No April 01 3 4:49pm Power of Scrap Wheeler No April 01 023 4:49pm Chief Complaint and Reason for Visit Chief Complaint CHEST PAIN Additional Source Comments Source Comments (unrecognize d section and content) In the event this informatio n is protected by the Federal Confidentiality of Alcohol and Drug Abuse Patient Records regulations: The Federal rules restrict any use of the information to criminally investigate or prosecute any alcohol or drug abuse patient.[facility] the event this information is protected by the Federal Confidentiality of Alcohol and Drug Abuse Patient Records regulations: The Federal rules restrict any use of the information to criminally investigate or prosecute any alcohol or drug abuse patient.[facility] the event this information is protected by the Federal Confidentiality of Alcohol and Drug Abuse Patient Records regulations: The Federal rules restrict any use of the information to criminally investigate or prosecute any alcohol or drug abuse patient.[facility] the event this information is protected by the Federal Confidentiality of Alcohol and Drug Abuse Patient Records regulations: The Federal rules restrict any use of the information to criminally investigate or prosecute any alcohol or drug abuse patient.[facility] the event this information is protected by the Federal Confidentiality of Alcohol and Drug Abuse Patient Records regulations: The Federal rules restrict any use of the information to criminally investigate or prosecute any alcohol or drug abuse patient.[facility] the event this information is protected by the Federal Confidentiality of Alcohol and Drug Abuse Patient Records regulations: The Federal rules restrict any use of the information to criminally investigate or prosecute any alcohol or drug abuse patient.[facility] the event this information is protected by the Federal Confidentiality of Alcohol and Drug Abuse Patient Records regulations: The Federal rules restrict any use of the information to criminally investigate or prosecute any alcohol or drug abuse patient.[facility] the event this information is protected by the Federal Confidentiality of Alcohol and Drug Abuse Patient Records regulations: The Federal rules restrict any use of the information to criminally investigate or prosecute any alcohol or drug abuse patient.[facility] the event this information is protected by the Federal Confidentiality of Alcohol and Drug Abuse Patient Records regulations: The Federal rules restrict any use of the information to criminally investigate or prosecute any alcohol or drug abuse patient.[facility] the event this information is protected by the Federal Confidentiality of Alcohol and Drug Abuse Patient Records regulations: The Federal rules restrict any use of the information to criminally investigate or prosecute any alcohol or drug abuse patient.[facility]In the event this information is protected by the Federal Confidentiality of Alcohol and Drug Abuse Patient Records regulations: The Federal rules restrict any use of the information to criminally investigate or prosecute any alcohol or drug abuse patient.[facility]In the event this information is protected by the Federal Confidentiality of Alcohol and Drug Abuse Patient Records regulations: The Federal rules restrict any use of the information to criminally investigate or prosecute any alcohol or drug abuse patient.[facility]In the event this information is protected by the Federal Confidentiality of Alcohol and Drug Abuse Patient Records regulations: The Federal rules restrict any use of the information to criminally investigate or prosecute any alcohol or drug abuse patient.[facility]In the event this information is protected by the Federal Confidentiality of Alcohol and Drug Abuse Patient Records regulations: The Federal rules restrict any use of the information to criminally investigate or prosecute any alcohol or drug abuse patient.[facility]In the event this information is protected by the Federal Confidentiality of Alcohol and Drug Abuse Patient Records regulations: The Federal rules restrict any use of the information to criminally investigate or prosecute any alcohol or drug abuse patient.[facility] HospitalIn the event this information is protected by the Federal Confidentiality of Alcohol and Drug Abuse Patient Records regulations: The Federal rules restrict any use of the information to criminally investigate or prosecute any alcohol or drug abuse patient.[facility]In the event this information is protected by the Federal Confidentiality of Alcohol and Drug Abuse Patient Records regulations: The Federal rules restrict any use of the information to criminally investigate or prosecute any alcohol or drug abuse patient.[facility]In the event this information is protected by the Federal Confidentiality of Alcohol and Drug Abuse Patient Records regulations: The Federal rules restrict any use of the information to criminally investigate or prosecute any alcohol or drug abuse patient.[facility] HospitalIn the event this information is protected by the Federal Confidentiality of Alcohol and Drug Abuse Patient Records regulations: The Federal rules restrict any use of the information to criminally investigate or prosecute any alcohol or drug abuse patient.[facility] HospitalIn the event this information is protected by the Federal Confidentiality of Alcohol and Drug Abuse Patient Records regulations: The Federal rules restrict any use of the information to criminally investigate or prosecute any alcohol or drug abuse patient.[facility] HospitalIn the event this information is protected by the Federal Confidentiality of Alcohol and Drug Abuse Patient Records regulations: The Federal rules restrict any use of the information to criminally investigate or prosecute any alcohol or drug abuse patient.[facility]In the event this information is protected by the Federal Confidentiality of Alcohol and Drug Abuse Patient Records regulations: The Federal rules restrict any use of the information to criminally investigate or prosecute any alcohol or drug abuse patient.[facility]In the event this information is protected by the Federal Confidentiality of Alcohol and Drug Abuse Patient Records regulations: The Federal rules restrict any use of the information to criminally investigate or prosecute any alcohol or drug abuse patient.[facility] HospitalIn the event this information is protected by the Federal Confidentiality of Alcohol and Drug Abuse Patient Records regulations: The Federal rules restrict any use of the information to criminally investigate or prosecute any alcohol or drug abuse patient.[facility]In the event this information is protected by the Federal Confidentiality of Alcohol and Drug Abuse Patient Records regulations: The Federal rules restrict any use of the information to criminally investigate or prosecute any alcohol or drug abuse patient.[facility]In the event this information is protected by the Federal Confidentiality of Alcohol and Drug Abuse Patient Records regulations: The Federal rules restrict any use of the information to criminally investigate or prosecute any alcohol or drug abuse patient.[facility]In the event this information is protected by the Federal Confidentiality of Alcohol and Drug Abuse Patient Records regulations: The Federal rules restrict any use of the information to criminally investigate or prosecute any alcohol or drug abuse patient.[facility]In the event this information is protected by the Federal Confidentiality of Alcohol and Drug Abuse Patient Records regulations: The Federal rules restrict any use of the information to criminally investigate or prosecute any alcohol or drug abuse patient.[facility] HospitalIn the event this information is protected by the Federal Confidentiality of Alcohol and Drug Abuse Patient Records regulations: The Federal rules restrict any use of the information to criminally investigate or prosecute any alcohol or drug abuse patient.[facility] HospitalIn the event this information is protected by the Federal Confidentiality of Alcohol and Drug Abuse Patient Records regulations: The Federal rules restrict any use of the information to criminally investigate or prosecute any alcohol or drug abuse patient.[facility] HospitalIn the event this information is protected by the Federal Confidentiality of Alcohol and Drug Abuse Patient Records regulations: The Federal rules restrict any use of the information to criminally investigate or prosecute any alcohol or drug abuse patient.[facility] HospitalIn the event this information is protected by the Federal Confidentiality of Alcohol and Drug Abuse Patient Records regulations: The Federal rules restrict any use of the information to criminally investigate or prosecute any alcohol or drug abuse patient.[facility]In the event this information is protected by the Federal Confidentiality of Alcohol and Drug Abuse Patient Records regulations: The Federal rules restrict any use of the information to criminally investigate or prosecute any alcohol or drug abuse patient.[facility] HospitalIn the event this information is protected by the Federal Confidentiality of Alcohol and Drug Abuse Patient Records regulations: The Federal rules restrict any use of the information to criminally investigate or prosecute any alcohol or drug abuse patient.[facility] HospitalIn the event this information is protected by the Federal Confidentiality of Alcohol and Drug Abuse Patient Records regulations: The Federal rules restrict any use of the information to criminally investigate or prosecute any alcohol or drug abuse patient.[facility] HospitalIn the event this information is protected by the Federal Confidentiality of Alcohol and Drug Abuse Patient Records regulations: The Federal rules restrict any use of the information to criminally investigate or prosecute any alcohol or drug abuse patient.[facility] HospitalIn the event this information is protected by the Federal Confidentiality of Alcohol and Drug Abuse Patient Records regulations: The Federal rules restrict any use of the information to criminally investigate or prosecute any alcohol or drug abuse patient.[facility] HospitalIn the event this information is protected by the Federal Confidentiality of Alcohol and Drug Abuse Patient Records regulations: The Federal rules restrict any use of the information to criminally investigate or prosecute any alcohol or drug abuse patient.[facility] HospitalIn the event this information is protected by the Federal Confidentiality of Alcohol and Drug Abuse Patient Records regulations: The Federal rules restrict any use of the information to criminally investigate or prosecute any alcohol or drug abuse patient.[facility] HospitalIn the event this information is protected by the Federal Confidentiality of Alcohol and Drug Abuse Patient Records regulations: The Federal rules restrict any use of the information to criminally investigate or prosecute any alcohol or drug abuse patient.[facility] HospitalIn the event this information is protected by the Federal Confidentiality of Alcohol and Drug Abuse Patient Records regulations: The Federal rules restrict any use of the information to criminally investigate or prosecute any alcohol or drug abuse patient.[facility] HospitalIn the event this information is protected by the Federal Confidentiality of Alcohol and Drug Abuse Patient Records regulations: The Federal rules restrict any use of the information to criminally investigate or prosecute any alcohol or drug abuse patient.[facility] HospitalIn the event this information is protected by the Federal Confidentiality of Alcohol and Drug Abuse Patient Records regulations: The Federal rules restrict any use of the information to criminally investigate or prosecute any alcohol or drug abuse patient.[facility] HospitalIn the event this information is protected by the Federal Confidentiality of Alcohol and Drug Abuse Patient Records regulations: The Federal rules restrict any use of the information to criminally investigate or prosecute any alcohol or drug abuse patient.[facility] HospitalIn the event this information is protected by the Federal Confidentiality of Alcohol and Drug Abuse Patient Records regulations: The Federal rules restrict any use of the information to criminally investigate or prosecute any alcohol or drug abuse patient.[facility] HospitalIn the event this information is protected by the Federal Confidentiality of Alcohol and Drug Abuse Patient Records regulations: The Federal rules restrict any use of the information to criminally investigate or prosecute any alcohol or drug abuse patient.[facility] HospitalIn the event this information is protected by the Federal Confidentiality of Alcohol and Drug Abuse Patient Records regulations: The Federal rules restrict any use of the information to criminally investigate or prosecute any alcohol or drug abuse patient.[facility]In the event this information is protected by the Federal Confidentiality of Alcohol and Drug Abuse Patient Records regulations: The Federal rules restrict any use of the information to criminally investigate or prosecute any alcohol or drug abuse patient.[facility] HospitalIn the event this information is protected by the Federal Confidentiality of Alcohol and Drug Abuse Patient Records regulations: The Federal rules restrict any use of the information to criminally investigate or prosecute any alcohol or drug abuse patient.[facility] HospitalIn the event this information is protected by the Federal Confidentiality of Alcohol and Drug Abuse Patient Records regulations: The Federal rules restrict any use of the information to criminally investigate or prosecute any alcohol or drug abuse patient.[facility] HospitalIn the event this information is protected by the Federal Confidentiality of Alcohol and Drug Abuse Patient Records regulations: The Federal rules restrict any use of the information to criminally investigate or prosecute any alcohol or drug abuse patient.[facility] HospitalIn the event this information is protected by the Federal Confidentiality of Alcohol and Drug Abuse Patient Records regulations: The Federal rules restrict any use of the information to criminally investigate or prosecute any alcohol or drug abuse patient.[facility] HospitalIn the event this information is protected by the Federal Confidentiality of Alcohol and Drug Abuse Patient Records regulations: The Federal rules restrict any use of the information to criminally investigate or prosecute any alcohol or drug abuse patient.[facility] HospitalIn the event this information is protected by the Federal Confidentiality of Alcohol and Drug Abuse Patient Records regulations: The Federal rules restrict any use of the information to criminally investigate or prosecute any alcohol or drug abuse patient.[facility] HospitalIn the event this information is protected by the Federal Confidentiality of Alcohol and Drug Abuse Patient Records regulations: The Federal rules restrict any use of the information to criminally investigate or prosecute any alcohol or drug abuse patient.[facility] HospitalIn the event this information is protected by the Federal Confidentiality of Alcohol and Drug Abuse Patient Records regulations: The Federal rules restrict any use of the information to criminally investigate or prosecute any alcohol or drug abuse patient.[facility] HospitalIn the event this information is protected by the Federal Confidentiality of Alcohol and Drug Abuse Patient Records regulations: The Federal rules restrict any use of the information to criminally investigate or prosecute any alcohol or drug abuse patient.[facility] HospitalIn the event this information is protected by the Federal Confidentiality of Alcohol and Drug Abuse Patient Records regulations: The Federal rules restrict any use of the information to criminally investigate or prosecute any alcohol or drug abuse patient.[facility] HospitalIn the event this information is protected by the Federal Confidentiality of Alcohol and Drug Abuse Patient Records regulations: The Federal rules restrict any use of the information to criminally investigate or prosecute any alcohol or drug abuse patient.[facility] HospitalIn the event this information is protected by the Federal Confidentiality of Alcohol and Drug Abuse Patient Records regulations: The Federal rules restrict any use of the information to criminally investigate or prosecute any alcohol or drug abuse patient.[facility] HospitalIn the event this information is protected by the Federal Confidentiality of Alcohol and Drug Abuse Patient Records regulations: The Federal rules restrict any use of the information to criminally investigate or prosecute any alcohol or drug abuse patient.[facility] HospitalIn the event this information is protected by the Federal Confidentiality of Alcohol and Drug Abuse Patient Records regulations: The Federal rules restrict any use of the information to criminally investigate or prosecute any alcohol or drug abuse patient.[facility] HospitalIn the event this information is protected by the Federal Confidentiality of Alcohol and Drug Abuse Patient Records regulations: The Federal rules restrict any use of the information to criminally investigate or prosecute any alcohol or drug abuse patient.[facility] HospitalIn the event this information is protected by the Federal Confidentiality of Alcohol and Drug Abuse Patient Records regulations: The Federal rules restrict any use of the information to criminally investigate or prosecute any alcohol or drug abuse patient.[facility] HospitalIn the event this information is protected by the Federal Confidentiality of Alcohol and Drug Abuse Patient Records regulations: The Federal rules restrict any use of the information to criminally investigate or prosecute any alcohol or drug abuse patient.[facility] HospitalIn the event this information is protected by the Federal Confidentiality of Alcohol and Drug Abuse Patient Records regulations: The Federal rules restrict any use of the information to criminally investigate or prosecute any alcohol or drug abuse patient.[facility] HospitalIn the event this information is protected by the Federal Confidentiality of Alcohol and Drug Abuse Patient Records regulations: The Federal rules restrict any use of the information to criminally investigate or prosecute any alcohol or drug abuse patient.[facility] HospitalIn the event this information is protected by the Federal Confidentiality of Alcohol and Drug Abuse Patient Records regulations: The Federal rules restrict any use of the information to criminally investigate or prosecute any alcohol or drug abuse patient.[facility] HospitalIn the event this information is protected by the Federal Confidentiality of Alcohol and Drug Abuse Patient Records regulations: The Federal rules restrict any use of the information to criminally investigate or prosecute any alcohol or drug abuse patient.[facility] HospitalIn the event this information is protected by the Federal Confidentiality of Alcohol and Drug Abuse Patient Records regulations: The Federal rules restrict any use of the information to criminally investigate or prosecute any alcohol or drug abuse patient.[facility] HospitalIn the event this information is protected by the Federal Confidentiality of Alcohol and Drug Abuse Patient Records regulations: The Federal rules restrict any use of the information to criminally investigate or prosecute any alcohol or drug abuse patient.[facility] HospitalIn the event this information is protected by the Federal Confidentiality of Alcohol and Drug Abuse Patient Records regulations: The Federal rules restrict any use of the information to criminally investigate or prosecute any alcohol or drug abuse patient.[facility] HospitalIn the event this information is protected by the Federal Confidentiality of Alcohol and Drug Abuse Patient Records regulations: The Federal rules restrict any use of the information to criminally investigate or prosecute any alcohol or drug abuse patient.[facility] HospitalIn the event this information is protected by the Federal Confidentiality of Alcohol and Drug Abuse Patient Records regulations: The Federal rules restrict any use of the information to criminally investigate or prosecute any alcohol or drug abuse patient.[facility] HospitalIn the event this information is protected by the Federal Confidentiality of Alcohol and Drug Abuse Patient Records regulations: The Federal rules restrict any use of the information to criminally investigate or prosecute any alcohol or drug abuse patient.[facility] HospitalIn the event this information is protected by the Federal Confidentiality of Alcohol and Drug Abuse Patient Records regulations: The Federal rules restrict any use of the information to criminally investigate or prosecute any alcohol or drug abuse patient.[facility] HospitalIn the event this information is protected by the Federal Confidentiality of Alcohol and Drug Abuse Patient Records regulations: The Federal rules restrict any use of the information to criminally investigate or prosecute any alcohol or drug abuse patient.[facility] HospitalIn the event this information is protected by the Federal Confidentiality of Alcohol and Drug Abuse Patient Records regulations: The Federal rules restrict any use of the information to criminally investigate or prosecute any alcohol or drug abuse patient.[facility] HospitalIn the event this information is protected by the Federal Confidentiality of Alcohol and Drug Abuse Patient Records regulations: The Federal rules restrict any use of the information to criminally investigate or prosecute any alcohol or drug abuse patient.[facility] HospitalIn the event this information is protected by the Federal Confidentiality of Alcohol and Drug Abuse Patient Records regulations: The Federal rules restrict any use of the information to criminally investigate or prosecute any alcohol or drug abuse patient.[facility] HospitalIn the event this information is protected by the Federal Confidentiality of Alcohol and Drug Abuse Patient Records regulations: The Federal rules restrict any use of the information to criminally investigate or prosecute any alcohol or drug abuse patient.[facility] HospitalIn the event this information is protected by the Federal Confidentiality of Alcohol and Drug Abuse Patient Records regulations: The Federal rules restrict any use of the information to criminally investigate or prosecute any alcohol or drug abuse patient.[facility] HospitalIn the event this information is protected by the Federal Confidentiality of Alcohol and Drug Abuse Patient Records regulations: The Federal rules restrict any use of the information to criminally investigate or prosecute any alcohol or drug abuse patient.[facility] HospitalIn the event this information is protected by the Federal Confidentiality of Alcohol and Drug Abuse Patient Records regulations: The Federal rules restrict any use of the information to criminally investigate or prosecute any alcohol or drug abuse patient.[facility] HospitalIn the event this information is protected by the Federal Confidentiality of Alcohol and Drug Abuse Patient Records regulations: The Federal rules restrict any use of the information to criminally investigate or prosecute any alcohol or drug abuse patient.[facility] HospitalIn the event this information is protected by the Federal Confidentiality of Alcohol and Drug Abuse Patient Records regulations: The Federal rules restrict any use of the information to criminally investigate or prosecute any alcohol or drug abuse patient.[facility] HospitalIn the event this information is protected by the Federal Confidentiality of Alcohol and Drug Abuse Patient Records regulations: The Federal rules restrict any use of the information to criminally investigate or prosecute any alcohol or drug abuse patient.[facility] Reason for Visit (unrecogniz ed section and content) Reason Comments Endometrial Biopsy Specialty Diagnoses / Procedures Referred By Kikoac t Referred To Contact Industrial Cleaning Technician / DAIRY GRAZER Diagnoses Endometrial thickening on ultrasound Endometrial thickening on ultrasound [R93.89]; Ovarian cyst, right [N83.201] Procedures ENDOMETRIAL BX W/WO ENDOCERVIX BX W/O DILAT SPX ENDOMETRIAL BIOPSY Marga Crowe MD [address] [place] [address] Phone: tel: fax: Marga Crowe MD [address] [place] [address] Phone: tel: fax: Referral ID Status Reason Start Date Expiration Date Visits Re quested Visits Authorized [id number] Closed 09/20/2024 08/09/2025 1 1 Reason Comments Refill Request Reason Onset Date Comments Refill Request 12/05/2021 Reason Onset Date Comments Refill Request 12/06/2021 Reason Comments Physical Reason Onset Date Comments Refill Request 03/28/2022 Reason Onset Date Comments Refill Request 04/01/2022 Reason Onset Date Comments Refill Request 04/02/2022 Reason Onset Date Comments Refill Request 09/04/2022 Reason Comments Follow Up discuss meds and que stions Reason Comments Consult Colonoscopy Reason Comments Appointment Reason Comments Procedure BMBX Reason Comments New Patient Reason Onset Date Comments SPP Oral Oncology/hematology - Treatment Referra l 04/07/2023 [employer] Insurance Authorization 04/07/2023 Pending PA submission Reason Onset Date Comments Refill Request 04/09/2023 Reason Comments Care Coordination ORAL ANTI-CANCER AGE NTS EDUCATION Reason Comments Care Coordination Reason Comments Urgent Reason Onset Date Comments Refill Request 04/24/2023 Reason Comments Follow Up Reason Comments Established Patient Reason Onset Date Comments Refill Request 07/15/2023 Reason Comments Recheck BP follo up Reason Comments Orders Reason Comments Insurance Authorization [employer] Reason Comments F/U 3 Month Reason Comments Results Reason Comments Menstrual Problem Irregular spotting, no regular periods for months Reason Onset Date Comments Refill Request 05/06/2024 Reason Comments Derm Problem Reason Comments SOCIAL WORK SERVICES (PRO TAUSSIG REPORT ) Reason Comments Annual Exam Pt here for yearly e xam.Complaints: Last pap: 01/17/21Last mammo: 04/17/23Last dexa: 04/17/23LMP: 10/2023 P: 3 Reason Comments Follow Up Reason Onset Date Comments Refill Request 06/27/2024 Reason Comments Radiology US Specialty Diagnoses / Procedures Referred By Contac t Referred To Contact US IMAGING Diagnoses Spotting Procedures US FEMALE PELVIS TRANSVAG US TRANSVAGINAL Eden Petersen MD [address] [place] [address] [place] [address] Referral ID Status Reason Start Date Expiration Date V isits Requested Visits Authorized [id number] Closed Auto-Generate d Referral 06/21/2024 07/21/2025 1 1 Reason Comments PT Eval Specialty Diagnoses / Procedures Referred By Contac t Referred To Contact [facility] Diagnoses Scoliosis, unspecified scoliosis type, unspecified spinal region Degeneration of intervertebral disc of lumbar region, unspecified whether pain present Chronic bilateral back pain, unspecified back location Procedures CONSULT TO PHYSICAL THERAPY PHYSICAL TH[facility]AP[facility] 45 MINS Eden Petersen MD [address] [place] [address] [facility] [address] [place] [address] Referral ID Status Reason Start Date Expiration Date Visits Requested Visits Authorized [id number] Authorized Auto-Generat ed Referral 08/10/2023 08/09/2024 30 30 Reason Comments insurance approval Reason Onset Date Comments Refill Request 09/03/2024 Specialty Diagnoses / Procedures Referred By Contac t Referred To Contact Gynecology Diagnoses Endometrial thickening on ultrasound Procedures CONSULT TO GYNECOLOGY OFFICE/OUTPATIENT [facility] 60 MINUTES Eden Petersen MD [address] [place] [address] Referral ID Status Reason Start Date Expiration Date V isits Requested Visits Authorized [id number] Closed PCP Requested Referral Auto-Generated Referral 07/04/2024 07/04/2025 1 1 Reason Comments PT Discharge Specialty Diagnoses / Procedures Referred By Contac t Referred To Contact PHYSICAL THERAPY Diagnoses Scoliosis, unspecified scoliosis type, unspecified spinal region [M41.9]; Degeneration of intervertebral disc of lumbar region, unspecified whether pain present [M51.369]; Chronic bilateral back pain, unspecified back location [M54.9, G89.29] Procedures Scoliosis, unspecified scoliosis type, unspecified spinal region [M41.9]; Degeneration of intervertebral disc of lumbar region, unspecified whether pain present [M51.369]; Chronic bilateral back pain, unspecified back location [M54.9, G89.29] Eden Petersen MD [address] [place] [address] Pt [facility] [address] [place] [address] Referral ID Status Reason Start Date Expiration Date V isits Requested Visits Authorized [id number] Authorized 08/10/2024 08/09/2025 30 30 Reason Comments F/U 3 Month Specialty Diagnoses / Procedures Referred By Contac t Referred To Contact Internal Medicine / INTERNAL MEDICINE Diagnoses Examination 3 mo follow up Procedures OFFICE/OUTPATIENT ESTABLISHED MOD MDM 30 MIN 4C EST Eden Petersen MD [address] [place] [address] Phone: tel: fax: [place] [address] [place] [address] Phone: tel: fax: Referral ID Status Reason Start Date Expiration Date Visits Re quested Visits Authorized [id number] Closed 09/23/2024 08/09/2025 1 1 Reason Onset Date Comments Refill Request 09/27/2024 Reason Onset Date Comments Refill Request 10/13/2024 Reason Comments Results Xray back Care Teams (unrecognized sec tion and content) General Utility Maintenance Repairer Relationship Specialty Start Date End Date Eden Petersen MD [address] [place], [place] [id number] PCP - General Internal Medicine 03/13/17 General Utility Maintenance Repairer Relationship Specialty Start Date End Date Eden Petersen MD [address] [place], [place] [id number] PCP - General Internal Medicine 03/13/17 General Utility Maintenance Repairer Relationship Specialty Start Date End Date Eden Petersen MD [address] [place], [place] [id number] PCP - General Internal Medicine 03/13/17 General Utility Maintenance Repairer Relationship Specialty Start Date End Date Eden Petersen MD [address] [place] [address] PCP - General Internal Medicine 03/13/17 General Utility Maintenance Repairer Relationship Specialty Start Date End Date Eden Petersen MD [address] [place] [address] PCP - General Internal Medicine 03/13/17 General Utility Maintenance Repairer Relationship Specialty Start Date End Date Eden Petersen MD [address] [place] [address] PCP - General Internal Medicine 03/13/17 General Utility Maintenance Repairer Relationship Specialty Start Date End Date Eden Petersen MD [address] [place] [address] PCP - General Internal Medicine 03/13/17 General Utility Maintenance Repairer Relationship Specialty Start Date End Date Eden Petersen MD [address] [place] [address] PCP - General Internal Medicine 03/13/17 General Utility Maintenance Repairer Relationship Specialty Start Date End Date Eden Petersen MD [address] [place] [address] PCP - General Internal Medicine 03/13/17 General Utility Maintenance Repairer Relationship Specialty Start Date End Date Eden Petersen MD [address] [place] [address] PCP - General Internal Medicine 03/13/17 General Utility Maintenance Repairer Relationship Specialty Start Date End Date Eden Petersen MD [address] [place] [place] [address] PCP - General Internal Medicine 03/13/17 General Utility Maintenance Repairer Relationship Specialty Start Date End Date Eden Petersen MD [address] [place] [address] PCP - General Internal Medicine 03/13/17 General Utility Maintenance Repairer Relationship Specialty Start Date End Date Eden Petersen MD [address] [place] [place] [address] PCP - General Internal Medicine 03/13/17 Team Status: Active Member Role Status Dates Dr. Eden Petersen MD Primary Care Provider Active Team Status: Inactive Member Role Status Dates Dr. Arleen Rodríguez MD Emergency Provider Active Dr. Eden Petersen MD Primary Care Provider Active General Utility Maintenance Repairer Relationship Specialty Start Date End Date Eden Petersen MD [address] [place] [address] PCP - General Internal Medicine 03/13/17 General Utility Maintenance Repairer Relationship Specialty Start Date End Date Eden Petersen MD [address] [place] [place] [address] PCP - General Internal Medicine 03/13/17 Prince Uribe MD [address] [place] [address] Hematology/Oncology 04/02/23 General Utility Maintenance Repairer Relationship Specialty Start Date End Date Eden Petersen MD [address] [place] [address] PCP - General Internal Medicine 03/13/17 Prince Uribe MD [address] [place] [address] Hematology/Oncology 04/02/23 General Utility Maintenance Repairer Relationship Specialty Start Date End Date Eden Petersen MD [address] [place] [address] PCP - General Internal Medicine 03/13/17 Prince Uribe MD [address] [place] [address] Hematology/Oncology 04/02/23 General Utility Maintenance Repairer Relationship Specialty Start Date End Date Eden Petersen MD [address] [place] [address] PCP - General Internal Medicine 03/13/17 Prince Uribe MD [address] [place] [address] Hematology/Oncology 04/02/23 General Utility Maintenance Repairer Relationship Specialty Start Date End Date Eden Petersen MD [address] [place] [address] PCP - General Internal Medicine 03/13/17 Prince Uribe MD [address] [place] [address] Hematology/Oncology 04/02/23 General Utility Maintenance Repairer Relationship Specialty Start Date End Date Eden Petersen MD [address] [place] [address] PCP - General Internal Medicine 03/13/17 Prince Uribe MD [address] [place] [address] Hematology/Oncology 04/02/23 General Utility Maintenance Repairer Relationship Specialty Start Date End Date Eden Petersen MD [address] [place] [address] PCP - General Internal Medicine 03/13/17 Prince Uribe MD [address] [place] [address] Hematology/Oncology 04/02/23 General Utility Maintenance Repairer Relationship Specialty Start Date End Date Eden Petersen MD [address] [place] [address] PCP - General Internal Medicine 03/13/17 Prince Uribe MD [address] [place] [address] Hematology/Oncology 04/02/23 General Utility Maintenance Repairer Relationship Specialty Start Date End Date Eden Petersen MD [address] [place] [address] PCP - General Internal Medicine 03/13/17 Prince Uribe MD [address] [place] [address] Hematology/Oncology 04/02/23 General Utility Maintenance Repairer Relationship Specialty Start Date End Date Eden Petersen MD [address] [place] [address] PCP - General Internal Medicine 03/13/17 Prince Uribe MD [address] [place] [address] Hematology/Oncology 04/02/23 Annie Alba, LOAN [address] [place] [address] Specialty Business Education Professor Hematology/Oncology 06/11/23 General Utility Maintenance Repairer Relationship Specialty Start Date End Date Eden Petersen MD [address] [place] [address] PCP - General Internal Medicine 03/13/17 Prince Uribe MD [address] [place] [address] Hematology/Oncology 04/02/23 Annie Alba, RN [address] [place] [address] Specialty Business Education Professor Hematology/Oncology 06/11/23 General Utility Maintenance Repairer Relationship Specialty Start Date End Date Eden Petersen MD [address] [place] [address] PCP - General Internal Medicine 03/13/17 Prince Uribe MD [address] [place] [address] Hematology/Oncology 04/02/23 Annie Alba, LOAN [address] [place] [address] Specialty Business Education Professor Hematology/Oncology 06/11/23 General Utility Maintenance Repairer Relationship Specialty Start Date End Date Eden Petersen MD [address] [place] [address] PCP - General Internal Medicine 03/13/17 Prince Uribe MD [address] [place] [address] Hematology/Oncology 04/02/23 Annie Alba, RN [address] [place] [address] Specialty Business Education Professor Hematology/Oncology 06/11/23 General Utility Maintenance Repairer Relationship Specialty Start Date End Date dEen Petersen MD [address] [place] [address] PCP - General Internal Medicine 03/13/17 Prince Uribe MD [address] [place] [address] Hematology/Oncology 04/02/23 Annie Alba, RN [address] [place] [address] Specialty Business Education Professor Hematology/Oncology 06/11/23 General Utility Maintenance Repairer Relationship Specialty Start Date End Date Eden Petersen MD [address] [place] [address] PCP - General Internal Medicine 03/13/17 Prince Uribe MD [address] [place] [address] Hematology/Oncology 04/02/23 Annie Alba, LOAN [address] [place] [address] Specialty Business Education Professor Hematology/Oncology 06/11/23 General Utility Maintenance Repairer Relationship Specialty Start Date End Date Eden Petersen MD [address] [place] [address] PCP - General Internal Medicine 03/13/17 Prince Uribe MD [address] [place] [address] Hematology/Oncology 04/02/23 Annie Alba, RN [address] [place] [address] Specialty Business Education Professor Hematology/Oncology 06/11/23 General Utility Maintenance Repairer Relationship Specialty Start Date End Date Eden Petersen MD [address] [place] [address] PCP - General Internal Medicine 03/13/17 Prince Uribe MD [address] [place] [address] Hematology/Oncology 04/02/23 Annie Alba, LOAN [address] [place] [address] Specialty Business Education Professor Hematology/Oncology 06/11/23 General Utility Maintenance Repairer Relationship Specialty Start Date End Date Eden Petersen MD [address] [place] [address] PCP - General Internal Medicine 03/13/17 Prince Uribe MD [address] [place] [address] Hematology/Oncology 04/02/23 Annie Alba, LOAN [address] [place] [address] Specialty Business Education Professor Hematology/Oncology 06/11/23 General Utility Maintenance Repairer Relationship Specialty Start Date End Date Eden Petersen MD [address] [place] [address] PCP - General Internal Medicine 03/13/17 Prince Uribe MD [address] [place] [address] Hematology/Oncology 04/02/23 Annie Alba, LOAN [address] [place] [address] Specialty Business Education Professor Hematology/Oncology 06/11/23 General Utility Maintenance Repairer Relationship Specialty Start Date End Date Eden Petersen MD [address] [place] [address] PCP - General Internal Medicine 03/13/17 Prince Uribe MD [address] [place] [address] Hematology/Oncology 04/02/23 Annie Alba, RN [address] [place] [address] Specialty Business Education Professor Hematology/Oncology 06/11/23 General Utility Maintenance Repairer Relationship Specialty Start Date End Date Eden Petersen MD [address] [place] [address] PCP - General Internal Medicine 03/13/17 Prince Uribe MD [address] [place] [address] Hematology/Oncology 04/02/23 Annie Alba, RN [address] [place] [address] Specialty Business Education Professor Hematology/Oncology 06/11/23 General Utility Maintenance Repairer Relationship Specialty Start Date End Date Eden Petersen MD [address] [place] [address] PCP - General Internal Medicine 03/13/17 Prince Uribe MD [address] [place] [address] Hematology/Oncology 04/02/23 Annie Alba, RN [address] [place] [address] Specialty Business Education Professor Hematology/Oncology 06/11/23 General Utility Maintenance Repairer Relationship Specialty Start Date End Date Eden Petersen MD [address] [place] [address] PCP - General Internal Medicine 03/13/17 Prince Uribe MD [address] [place] [address] Hematology/Oncology 04/02/23 Annie Alba, LOAN [address] [place] [address] Specialty Business Education Professor Hematology/Oncology 06/11/23 General Utility Maintenance Repairer Relationship Specialty Start Date End Date Eden Cespedes MD [address] [place] [address] PCP - General Pediatrics 04/17/23 General Utility Maintenance Repairer Relationship Specialty Start Date End Date Eden Cespedes MD [address] [place] [address] PCP - General Pediatrics 04/17/23 General Utility Maintenance Repairer Relationship Specialty Start Date End Date Eden Petersen MD [address] [place] [address] PCP - General Internal Medicine 03/13/17 Prince Uribe MD [address] [place] [address] Hematology/Oncology 04/02/23 Annie Alba, LOAN [address] [place] [address] Specialty Business Education Professor Hematology/Oncology 06/11/23 General Utility Maintenance Repairer Relationship Specialty Start Date End Date Eden Petersen MD [address] [place] [address] PCP - General Internal Medicine 03/13/17 Prince Uribe MD [address] [place] [address] Hematology/Oncology 04/02/23 Annie Alba, RN [address] [place] [address] Specialty Business Education Professor Hematology/Oncology 06/11/23 General Utility Maintenance Repairer Relationship Specialty Start Date End Date Eden Cespedes MD [address] [place] [address] PCP - General Pediatrics 04/17/23 General Utility Maintenance Repairer Relationship Specialty Start Date End Date Eden Petersen MD [address] [place] [address] PCP - General Internal Medicine 03/13/17 Prince Uribe MD [address] [place] [address] Hematology/Oncology 04/02/23 Annie Alba, RN [address] [place] [address] Specialty Business Education Professor Hematology/Oncology 06/11/23 Marisela Cabrera PA-C [address] [place] [address] Embalmer Assistant Family Medicine 07/17/24 Judith Howell APRN.[employer] [address] [place] [address] Embalmer Assistant Internal Medicine 07/17/24 Dora Brower PA-C [address] [place] [address] Embalmer Assistant Family Medicine 07/17/24 General Utility Maintenance Repairer Relationship Specialty Start Date End Date Eden Petersen MD [address] [place] [address] PCP - General Internal Medicine 03/13/17 Prince Uribe MD [address] [place] [address] Hematology/Oncology 04/02/23 Annie Alba RN [address] [place] [address] Specialty Business Education Professor Hematology/Oncology 06/11/23 Marisela Cabrera PA-C [address] [place] [address] Embalmer Assistant Family Medicine 07/17/24 Judith Howell APRN.CNP [address] [place] [address] Embalmer Assistant Internal Medicine 07/17/24 Dora Brower PA-C [address] [place] [address] Embalmer Assistant Family Medicine 07/17/24 General Utility Maintenance Repairer Relationship Specialty Start Date End Date Eden Petersen MD [address] [place] [address] PCP - General Internal Medicine 03/13/17 Prince Uribe MD [address] [place] [address] Hematology/Oncology 04/02/23 Annie Alba, LOAN [address] [place] [address] Specialty Business Education Professor Hematology/Oncology 06/11/23 Marisela Cabrera PA-C [address] [place] [address] Embalmer Assistant Family Medicine 07/17/24 Judith Howell APRN.[employer] [address] [place] [address] Embalmer Assistant Internal Medicine 07/17/24 Dora Brower PA-C [address] [place] [address] Embalmer Assistant Family [facility] 07/17/24 General Utility Maintenance Repairer Relationship Specialty Start Date End Date Eden Petersen MD [address] [place] [address] PCP - General Internal Medicine 03/13/17 Prince Uribe MD [address] [place] [address] Hematology/Oncology 04/02/23 Annie Alba, LOAN [address] [place] [address] Specialty Business Education Professor Hematology/Oncology 06/11/23 Marisela Cabrera PA-C [address] [place] [address] Embalmer Assistant Family Medicine 07/17/24 Judith Howell APRN.[employer] [address] [place] [address] Embalmer Assistant Internal Medicine 07/17/24 Dora Brower PA-C [address] [facility] [place] [address] Embalmer Assistant Family Medicine 07/17/24 General Utility Maintenance Repairer Relationship Specialty Start Date End Date Eden Petersen MD [address] [place] [address] PCP - General Internal Medicine 03/13/17 Prince Uribe MD [address] [facility] [place] [address] Hematology/Oncology 04/02/23 Annie Alba, LOAN [address] [facility] [place] [address] Specialty Business Education Professor Hematology/Oncology 06/11/23 Marisela Cabrera PA-C [address] [place] [address] Embalmer Assistant Family Medicine 07/17/24 Judith Howell APRN.[employer] [address] [facility] [place] [address] Embalmer Assistant Internal Medicine 07/17/24 Dora Brower PA-C [address] [facility] [place] [address] Embalmer Assistant Family Medicine 07/17/24 General Utility Maintenance Repairer Relationship Specialty Start Date End Date Eden Petersen MD [address] [place] [address] PCP - General Internal Medicine 03/13/17 Prince Uribe MD [address] [place] [address] Hematology/Oncology 04/02/23 Annie Alba RN [address] [place] [address] Specialty Business Education Professor Hematology/Oncology 06/11/23 Marisela Cabrera PA-C [address] [place] [address] Embalmer Assistant Family Medicine 07/17/24 Judith Howell APRN.[employer] [address] [place] [address] Embalmer Assistant Internal Medicine 07/17/24 Dora Brower PA-C [address] [place] [address] Embalmer Assistant Family Medicine 07/17/24 General Utility Maintenance Repairer Relationship Specialty Start Date End Date Eden Petersen MD [address] [place] [address] PCP - General Internal Medicine 03/13/17 Prince Uribe MD [address] [place] [address] Hematology/Oncology 04/02/23 Annie Alba, LOAN [address] [place] [address] Specialty Business Education Professor Hematology/Oncology 06/11/23 Marisela Cabrera PA-C [address] [place] [address] Embalmer Assistant Family Medicine 07/17/24 Judith Howell APRN.[employer] [address] [facility] [place] [address] Embalmer Assistant Internal Medicine 07/17/24 Dora Brower PA-C [address] [place] [address] [facility] Family Medicine 07/17/24 General Utility Maintenance Repairer Relationship Specialty Start Date End Date Eden Petersen MD [address] [place] [address] PCP - General Internal Medicine 03/13/17 Prince Uribe MD [address] [place] [address] Hematology/Oncology 04/02/23 Annie Alba, LOAN [address] [place] [address] Specialty Business Education Professor Hematology/Oncology 06/11/23 Marisela Cabrera PA-C [address] [place] [address] Embalmer Assistant Family Medicine 07/17/24 Judith Howell APRN.[employer] [address] [facility] [place] [address] Embalmer Assistant Internal Medicine 07/17/24 Dora Brower PA-C [address] [facility] [place] [address] Embalmer Assistant Family Medicine 07/17/24 General Utility Maintenance Repairer Relationship Specialty Start Date End Date Eden Petersen MD [address] [place] [address] PCP - General Internal Medicine 03/13/17 Prince Uribe MD [address] [place] [address] Hematology/Oncology 04/02/23 Annie Alba RN [address] [place] [address] Specialty Business Education Professor Hematology/Oncology 06/11/23 Marisela Cabrera PA-C [address] [place] [address] Embalmer Assistant Family Medicine 07/17/24 Judith Howell APRN.[employer] [address] [place] [address] Embalmer Assistant Internal Medicine 07/17/24 Dora Brower PA-C [address] [place] [address] Embalmer Assistant Family Medicine 07/17/24 General Utility Maintenance Repairer Relationship Specialty Start Date End Date Eden Petersen MD [address] [place] [address] PCP - General Internal Medicine 03/13/17 Prince Uribe MD [address] [place] [address] Hematology/Oncology 04/02/23 Annie Alba, LOAN [address] [place] [address] Specialty Business Education Professor Hematology/Oncology 06/11/23 Marisela Cabrera PA-C [address] [place] [address] Embalmer Assistant Family Medicine 07/17/24 Judith Howell APRN.[employer] [address] [facility] [place] [address] Embalmer Assistant Internal Medicine 07/17/24 Dora Brower PA-C [address] [place] [address] Embalmer Assistant Family Medicine 07/17/24 General Utility Maintenance Repairer Relationship Specialty Start Date End Date Eden Petersen MD [address] [place] [address] PCP - General Internal Medicine 03/13/17 Prince Uribe MD [address] [place] [address] Hematology/Oncology 04/02/23 Annie Alba, LOAN [address] [place] [address] Specialty Business Education Professor Hematology/Oncology 06/11/23 Marisela Cabrera PA-C [address] [place] [address] Embalmer Assistant Family Medicine 07/17/24 Judith Howell APRN.[employer] [address] [place] [address] Embalmer Assistant Internal Medicine 07/17/24 Dora Brower PA-C [address] [place] [address] Embalmer Assistant Family Medicine 07/17/24 General Utility Maintenance Repairer Relationship Specialty Start Date End Date Eden Petersen MD [address] [place] [address] PCP - General Internal Medicine 03/13/17 Prince Uribe MD [address] [place] [address] Hematology/Oncology 04/02/23 Annie Alba, LOAN [address] [place] [address] Specialty Business Education Professor Hematology/Oncology 06/11/23 Marisela Cabrera PA-C [address] [place] [address] Embalmer Assistant Family Medicine 07/17/24 10/30/24 Judith Howell APRN.CNP [address] [place] [address] Embalmer Assistant Internal Medicine 07/17/24 Dora Brower PA-C [address] [place] [address] Embalmer Assistant Family Medicine 07/17/24 10/30/24 General Utility Maintenance Repairer Relationship Specialty Start Date End Date Eden Petersen MD [address] [place] [address] PCP - General Internal Medicine 03/13/17 Prince Uribe MD [address] [place] [address] Hematology/Oncology 04/02/23 Annie Alba, LOAN [address] [place] [address] Specialty Business Education Professor Hematology/Oncology 06/11/23 Judith Howell APRN.[employer] [address] [facility] [place] [address] Embalmer Assistant Internal Medicine 07/17/24 General Utility Maintenance Repairer Relationship Specialty Start Date End Date Eden Petersen MD [address] [place] [address] PCP - General Internal Medicine 03/13/17 Prince Uribe MD [address] [place] [address] Hematology/Oncology 04/02/23 Annie Alba RN [address] [place] [address] Specialty Business Education Professor Hematology/Oncology 06/11/23 Marisela Cabrera PA-C [address] [place] [address] Embalmer Assistant Family Medicine 07/17/24 10/30/24 Judith Howell APRN.[employer] [address] [facility] [place] [address] Embalmer Assistant Internal Medicine 07/17/24 Dora Brower PA-C [address] [place] [address] Embalmer Assistant Family Medicine 07/17/24 10/30/24 General Utility Maintenance Repairer Relationship Specialty Start Date End Date Eden Petersen MD [address] [place] [address] PCP - General Internal Medicine 03/13/17 Prince Uribe MD [address] [place] [id number] Hematology/Oncology 04/02/23 Annie Alba, LOAN [address] [place], [place] [address] Specialty Business Education Professor Hematology/Oncology 06/11/23 Judith Howell APRN.[facility] [address] [place] [address] Embalmer Assistant Internal Medicine 07/17/24 INFORMATION SOURCE (unrecogn ized section and content) DATE CREATED AUTHOR 11/29/2022 [facility] DATE CREATED AUTHOR AUTHOR'S ORGANIZ ATION 06/19/2024 [facility] DATE CREATED AUTHOR AUTHOR'S ORGANIZ ATION 06/27/2024 [facility] DATE CREATED AUTHOR AUTHOR'S ORGANIZ ATION 09/16/2024 [facility] DATE CREATED AUTHOR AUTHOR'S ORGANIZ ATION 01/04/2025 [facility] Goals (unrecognized section and content) Goals may be documented in a n alternate section FOR RECORDS PERTAINING TO PATIENTS WHO ARE OR HAVE BEEN ENROLLED IN A CHEMICAL DEPENDENCY/SUBSTANCEABUSE PROGRAM, SOME INFORMATION MAY BE OMITTED. This clinical summary was aggregated from multiple sources. Caution should be exercised in using it in the provision of clinical care. This summary normalizes information from multiple sources, and as a consequence, information in this document may materially change the coding, format and clinical context of patient data. In addition, data may be omitted in some cases. CLINICAL DECISIONS SHOULD BE BASED ON THE PRIMARY CLINICAL RECORDS. [employer] provides no warranty or guarantee of the accuracy or completeness of information in this document.
[2025-01-22] MEDS: Famotidine 200 MG/20 ML MDV 20 MG in 0.9% Normal Saline (Pres. free 8 ML 300 MG IV ×3 (04:03→22:25)
[2025-01-22 04:13] LABS: Anion Gap 12 (5-15); BUN 21 mg/dL (4-19); BUN/Creat Ratio 22.5 RATIO (10-20); Calcium,Total 9.8 mg/dL (7.6-11.0); Carbon Dioxide 25.1 mmol/L (21.0-32.0); Chloride 101 mmol/L (98-108); Creatinine, Serum 0.93 mg/dL (0.70-1.20); EST Glomerular Filtration Rate 74 (>60); Estimated Creatinine Clearance 74.62 ml/min (50-250); Glucose 90 mg/dL (70-99); Potassium 3.8 mmol/L (3.3-5.1); Sodium Level 138 mmol/L (133-145)
--- NOTE | 2025-01-22 04:56 | PCM.HP.STD ---
HPI - General General Date of Admission: 01/22/25 Date of Service: 01/22/25 Chief Complaint: Tongue and lip swelling HPI Narrative JACQUELINE PETTY, is a 54 F who presented to the emergency department at [facility] on 01/22/2025 with a chief complaint of tongue and lip swelling. She reported it started about 7 to 10 hours ago and was initially mild in nature. She has been on lisinopril HCTZ commendation pill for some time but picked up a new prescription recently. She is unclear if it was a new family and consumer science professor or not based on pill appearance. She states she really did not pay attention. She began having some irritation while she was in eating an orange but felt like her tongue was starting to swell and started having some submental and throat swelling. She denies any pain or odynophagia. She states her voice is stable. She is managing secretions well. Reports that tongue and lip swelling started about an 4 hours after she took her antihypertensives about 5 PM. She had no associated hives or any other signs of allergic reaction she does have CML at baseline and the only other medication change she had was a dose change in her Dasatinib. Vital signs on presentation showed temperature of 97.9, heart rate 70, respiratory rate was 12, blood pressure was 144/83, pulse ox was 100% on room air. CBC shows a mild leukocytosis with a white count of 11.2 and chronic thrombocytopenia with a platelet count stable at 98,000. She does not have a left shift but does have a monocytosis. Eosinophil count is normal. Chemistry panel is unremarkable. Given her persistent angioedema she will be admitted and monitored in the intensive care unit for progression of disease with concern for potential decompensation of her airway. [facility] Medical History Thrombocytopenia CML (chronic myelocytic leukemia) Anxiety Hypothyroidism Hypertension Home Medications ?Medication ?Instructions ?Recorded ?Last Taken ?Type amlodipine 2.5 mg tablet 2.5 mg PO DAILY 08/26/24 Unknown History azelaic acid 15 % topical gel 1 applic topical BID PRN rosacia 08/26/24 Unknown History bupropion HCl 300 mg 24 hr tablet, 300 mg PO DAILY 08/26/24 Unknown History extended release cholecalciferol (vitamin D3) 50 50 mcg PO DAILY 08/26/24 Unknown History mcg (2,000 unit) capsule (Vitamin D3) levothyroxine 100 mcg tablet 100 mcg PO DAILY 08/26/24 Unknown History (Synthroid) lisinopril 20 1 tab PO DAILY 08/26/24 Unknown History mg-hydrochlorothiazide 12.5 mg tablet dasatinib 140 mg tablet 140 mg PO DAILY 01/22/25 Unknown History Allergy/AdvReac Type Severity Reaction Status Date / Time lisinopril Allergy Severe Angioedema Verified 01/22/25 05:19 Family History no significant family his no significant family history Surgical History Hx of section Hx of hernia repair Hx of cholecystectomy Social History (Updated 01/22/25 @ 05:[address] Jillian Shafer DO) household members: spouse housing: house current occupational status: employed Smoking Status: Never smoker substance use type: does not use ROS Constitutional Constitutional: Denies anorexia, change in weight, chills, fatigue, fever(s), malaise, night sweats, weakness or other Eyes Eyes: Denies blurry vision, change in eye color, change in vision, discharge from eye(s), double vision, erythema, eye pain, loss of vision or other ENT HEENT: Reports other Details: Right-sided tongue/lip/buccal swelling ; Denies abnormal hearing, dysphagia, ear pain, epistaxis, headache(s), hearing loss, nasal congestion, nasal discharge, post nasal drip, sinus pressure or sore throat Cardiovascular Cardiovascular: Denies chest pain, claudication, dyspnea on exertion, edema, lightheadedness, orthopnea, palpitations, paroxysmal nocturnal dyspnea, rapid heart rate, syncope or other Respiratory/Chest Respiratory/Chest: Denies cough, dyspnea, excessive phlegm production, hemoptysis, productive cough, shortness of breath at rest, shortness of breath with exertion, wheezing or other Gastrointestinal Gastrointestinal: Denies abdominal pain, coffee ground emesis, constipation, diarrhea, dyspepsia, hematemesis, hematochezia, loose stools, melena, nausea, vomiting or other Genitourinary Genitourinary: Denies burning urination, difficulty urinating, dysuria, hematuria, nocturia, urinary frequency, urinary hesitancy, urinary incontinence, urinary urgency or other Musculoskeletal Musculoskeletal: Denies arthralgias, back pain, joint pain, joint stiffness, joint swelling, myalgias, neck pain or other Neurologic Neurologic: Reports other Details: Mildly abnormal speech Psychiatric Psychiatric: Reports anxiety; Denies depression, homicidal ideation, suicidal ideation or other Endocrine Endocrinology: Denies change in body appearance, cold intolerance, excessive sweating, heat intolerance, polydipsia, polyuria or other Hematologic/Lymphatic Hematologic/Lymphatic: Denies anemia, easy bleeding, easy bruising, lymphadenopathy or other Allergic/Immunologic Allergic/Immunologic: Denies rhinitis, hives, eczemia, asthma or other Vital Signs Vital Signs Vital Signs: 01/22/25 03:30 01/22/25 04:32 Temperature 97.9 F Temperature Source Oral Pulse Rate 70 63 Respiratory Rate 12 11 L Blood Pressure 144/83 H 115/63 Blood Pressure Mean 103 80 Pulse Ox 100 97 Oxygen Delivery Method Room Air Weight Weight: 81.5 kg Body Mass Index (BMI) 29.9 Physical Exam Const alert, oriented x3, no apparent distress and healthy appearing; Negative for average body habitus Constitutional Narrative: Overweight, middle-aged, white female, sitting up in bed, nontoxic, at bedside General Appearance: cooperative HEENT normocephalic, head/scalp atraumatic and hearing grossly normal bilaterally; Negative for oropharynx normal HEENT Narrative: Mild right side tongue swelling and some mental swelling, managing secretions well, voice seems slightly garbled to me Eyes conjunctivae normal Eyes Narrative: No scleral icterus Neck supple Neck Narrative: Trachea midline, slight fullness in right submandibular region Resp normal respiratory effort, no retractions, no use of accessory muscles and clear to auscultation bilaterally Resp Narrative: No stridor Auscultation: Negative for rales, rhonchi or wheezes Cardio regular rate, regular rhythm, S1 normal heart sound, S2 normal heart sound, no murmurs and no clicks GI normal to inspection, nondistended, normoactive bowel sounds, soft to palpation and non-tender Extremity no clubbing, cyanosis or edema Extremity Narrative: 2+ pedal pulses Neuro oriented x3, moves all extremities and no focal motor deficits Neuro Narrative: Speech seems slightly garbled to me Speech: Negative for speech normal Psych affect normal Psych Narrative: Eye contact is good and patient interacts appropriately Results Lab / Micro Data 01/22/25 03:37 01/22/25 03:37 Labs: Laboratory Results - last 24 hr 01/22/25 03:37: WBC 11.2 H, RBC 4.24, Hgb 14.0, Hct 40.0, MCV 94.3, MCH 33.0 H, MCHC 35.0, RDW Std Deviation 45.6 H, RDW Coeff of Yanira 13.4, Plt Count 98 L, MPV 9.7, Immature Gran % (Auto) 0.400, Neut % (Auto) 52.6, Lymph % (Auto) 32.4, [place] % (Auto) 10.6 H, Eos % (Auto) 2.8, Baso % (Auto) 1.2 H, Absolute Neuts (auto) 5.9, Absolute Lymphs (auto) 3.62, Nucleated RBC % 0, Sodium 138, Potassium 3.8, Chloride 101, Carbon Dioxide 25.1, Anion Gap 12, BUN 21 H, Creatinine 0.93, Estim Creat Clear Calc 74.62, Est GFR (MDRD) Non-Af 74, BUN/Creatinine Ratio 22.5 H, Glucose 90, Calcium 9.8 Assessment & Plan Assessment/Plan (1) Angioedema: PLAN: Plan Angioedema -Patient has never had this previously -Continuous pulse ox with admission to ICU for close monitoring - Suspect lisinopril induced - Patient is currently managing secretions well but will need to monitor for maintenance of airway - Admit to ICU - Solu-Medrol 60 Q6 - Famotidine 20 mg IV push twice daily - Benadryl 25 mg every 6 hours - Clear liquid diet for now - Will have speech evaluate and advance diet as able - Will hold on ICU consult for now but may need if develops any compromise Mild leukocytosis - Suspect reactive - Will likely go up with administration of steroids Chronic thrombocytopenia - Related to her CML - Counts are stable Essential hypertension - Will list lisinopril as an allergy - Restart amlodipine and HCTZ if verified - As needed hydralazine 10 every 6 hours as needed for systolic blood pressure greater than 160 CML - Continue home biologic agent Hypothyroidism - Continue home levothyroxine - Check TSH Depression/anxiety - Continue home Wellbutrin DVT prophylaxis - Subcu Lovenox as long as platelet count stays at 75,000 or above CODE STATUS Full code Charges/Coding Visit Charges Inpatient E&M: 45337 Init Hosp L2
--- OUTSIDE RECORDS SUMMARY | 2025-01-22 05:17 | XMS RPT_ITS | CCD ---
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 Name Role Phone Kecia HINOJOSA, Eden Primary Care Provider Kecia HINOJOSA, Eden Primary Care Provider Prince Uribe MD Unavailable Parth CATES, Annie Unavailable Kecia HINOJOSA, Eden Primary Care Provider Robert Petersen MD, Eden Primary Care Provider RAHUL RAMAN Attending Unavailable Yariel Cabrera PA-Chel L Unavailable Older BLIND LACER.RETURNS SUPERVISOR, Judith Unavailable Sandro Brower PA-Cadette Unavailable Steve Welch Attending Unavailable Ganta, Eden Primary Care Unavailable Deborah PALMA Marisela L Unavailable [phone] Leonarda PALMA Dora Unavailable GANTA, EDEN [...] by mouth once daily. polyethylene glycol 3350 734067 mg / potassium chloride 2970 mg / sodium bicarbonate 6740 mg / sodium chloride 5860 mg / sodium sulfate 55110 mg powder for oral solution (1 source) [...] Basophils (Bld) [#/Vol] 0.10 10*3/uL Normal <0.11 [facility] Comment on above: Order Comment: Speci men Type: BLOOD SPECIMENOrdering Facility: [facility] Address: [address] [place] [address] Performed By: #### 5 7021-8 ####[facility] [id number] [place] [address] [place] Basophils/100 WBC (Bld) 1.3 % Normal [facility] Comment on above: Order Comment: Speci men Type: BLOOD SPECIMENOrdering Facility: [facility] Address: [address] [place] [address] Performed By: #### 5 7021-8 ####[facility] MILLHAMPTONNCLIA [id number] [place] [address] [place] Differential cell count method Nom (Bld) Auto Normal [facility] Comment on above: Order Comment: Speci men Type: BLOOD SPECIMENOrdering Facility: [facility] Address: [address] [place] [address] Performed By: #### 5 7021-8 ####[facility] CITYDEVLIA [id number] [place] [address] [place] Eosinophils (Bld) [#/Vol] 0.28 10*3/uL Normal <0.46 [facility] Comment on above: Order Comment: Speci men Type: BLOOD SPECIMENOrdering Facility: [facility] Address: [address] [place] [address] Performed By: #### 5 7021-8 ####[facility] [id number] [place] [address] [place] Eosinophils/100 WBC (Bld) 3.6 % Normal [facility] Comment on above: Order Comment: Speci men Type: BLOOD SPECIMENOrdering Facility: [facility] Address: [address] [place] [address] Performed By: #### 5 7021-8 ####[facility] CITYDEVLIA [id number] [place] [address] [place] Erythrocyte distribution width (RBC) [Ratio] 13.6 % Normal 11.5-15.0 [facility] Comment on above: Order Comment: Speci men Type: BLOOD SPECIMENOrdering Facility: [facility] Address: [address] [place] [address] Performed By: #### 5 7021-8 ####[facility] CITYNCLIA [id number] [place] [address] [place] Hematocrit (Bld) [Volume fraction] 38.6 % Normal 36.0-46.0 [facility] Comment on above: Order Comment: Speci men Type: BLOOD SPECIMENOrdering Facility: [facility] Address: [address] [place] [address] Performed By: #### 5 7021-8 ####[facility]NC[facility] [id number] [place] [address] [place] Hemoglobin (Bld) [Mass/Vol] 13.2 g/dL Normal 11.5-15.5 [facility] Comment on above: Order Comment: Speci men Type: BLOOD SPECIMENOrdering Facility: [facility] Address: [address] [place] [address] Performed By: #### 5 7021-8 ####[facility] CITYNCLI [id number] [place] [address] [place] Immature granulocytes (Bld) [#/Vol] 0.03 10*3/uL Normal <0.10 [facility] Comment on above: Order Comment: Speci men Type: BLOOD SPECIMENOrdering Facility: [facility] Address: [address] [place] [address] Performed By: #### 5 7021-8 ####[facility] CITYNCLIA [id number] [place] [address] [place] Immature granulocytes/100 WBC (Bld) 0.4 % Normal [facility] Comment on above: Order Comment: Speci men Type: BLOOD SPECIMENOrdering Facility: [facility] Address: [address] [place] [address] Performed By: #### 5 7021-8 ####[facility] CITYNCLIA [id number] [place] [address] [place] Lymphocytes (Bld) [#/Vol] 1.94 10*3/uL Normal 1.00-4.00 [facility] Comment on above: Order Comment: Speci men Type: BLOOD SPECIMENOrdering Facility: [facility] Address: [address] [place] [address] Performed By: #### 5 7021-8 ####[facility] JOLENENOEL [id number] [place] [address] [place] Lymphocytes/100 WBC (Bld) 24.8 % Normal [facility] Comment on above: Order Comment: Speci men Type: BLOOD SPECIMENOrdering Facility: [facility] Address: [address] [place] [address] Performed By: #### 5 7021-8 ####[facility] CITYNCNIMO [id number] [place] [address] [place] MCH (RBC) [Entitic mass] 32.7 pg Normal 26.0-34.0 [facility] Comment on above: Order Comment: Speci men Type: BLOOD SPECIMENOrdering Facility: [facility] Address: [address] [place] [address] Performed By: #### 5 7021-8 ####[facility] CITYNCAna [id number] [place] [address] [place] MCHC (RBC) [Mass/Vol] 34.2 g/dL Normal 30.5-36.0 [facility] Comment on above: Order Comment: Speci men Type: BLOOD SPECIMENOrdering Facility: [facility] Address: [address] [place] [address] Performed By: #### 5 7021-8 ####[facility] CITYNCLIAna [id number] [place] [address] [place] MCV (RBC) [Entitic vol] 95.5 fL Normal 80.0-100.0 [facility] Comment on above: Order Comment: Speci men Type: BLOOD SPECIMENOrdering Facility: [facility] Address: [address] [place] [address] Performed By: #### 5 7021-8 ####[facility] MILLWNCLIA [id number] [place] [address] [place] Monocytes (Bld) [#/Vol] 0.50 10*3/uL Normal <0.87 [facility] Comment on above: Order Comment: Speci men Type: BLOOD SPECIMENOrdering Facility: [facility] Address: [address] [place] [address] Performed By: #### 5 7021-8 ####[facility] [id number] [place] [address] [place] Monocytes/100 WBC (Bld) 6.4 % Normal [facility] Comment on above: Order Comment: Speci men Type: BLOOD SPECIMENOrdering Facility: [facility] Address: [address] [place] [address] Performed By: #### 5 7021-8 ####[facility] [id number] [place] [address] [place] Neutrophils (Bld) [#/Vol] 4.96 10*3/uL Normal 1.45-7.50 [facility] Comment on above: Order Comment: Speci men Type: BLOOD SPECIMENOrdering Facility: [facility] Address: [address] [place] [address] Performed By: #### 5 7021-8 ####[facility] [id number] [place] [address] [place] Neutrophils/100 WBC (Bld) 63.5 % Normal [facility] Comment on above: Order Comment: Speci men Type: BLOOD SPECIMENOrdering Facility: [facility] Address: [address] [place] [address] Performed By: #### 5 7021-8 ####[facility]ITALLIA [id number] [place] [address] [place] Nucleated RBC (Bld) [#/Vol] 10*3/uL Normal <0.01 [facility] Comment on above: Order Comment: Speci men Type: BLOOD SPECIMENOrdering Facility: [facility] Address: [address] [place] [address] Performed By: #### 5 7021-8 ####[facility]ITAL[facility] [id number] [place] [address] [place] Nucleated RBC/100 WBC (Bld) [Ratio] 0.0 /100 WBC Normal [facility] Comment on above: Order Comment: Speci men Type: BLOOD SPECIMENOrdering Facility: [facility] Address: [address] [place] [address] Performed By: #### 5 7021-8 ####[facility] [id number] [place] [address] [place] Platelet mean volume (Bld) [Entitic vol] 9.7 fL Normal 9.0-12.7 [facility] Comment on above: Order Comment: Speci men Type: BLOOD SPECIMENOrdering Facility: [facility] Address: [address] [place] [address] Performed By: #### 5 7021-8 ####[facility] [id number] [place] [address] [place] Platelets (Bld) [#/Vol] 171 10*3/uL Normal 150-400 [facility] Comment on above: Order Comment: Speci men Type: BLOOD SPECIMENOrdering Facility: [facility] Address: [address] [place] [address] Performed By: #### 5 7021-8 ####[facility]ITAL[facility] [id number] [place] [address] [place] RBC (Bld) [#/Vol] 4.04 10*6/uL Normal 3.90-5.20 [facility] Comment on above: Order Comment: Speci men Type: BLOOD SPECIMENOrdering Facility: [facility] Address: [address] [place], [place] [address] Performed By: #### 5 7021-8 ####[facility] JOLENEWNCLIA [id number] [place] [address] [place] WBC (Bld) [#/Vol] 7.81 10*3/uL Normal 3.70-11.00 [facility] Comment on above: Order Comment: Speci men Type: BLOOD SPECIMENOrdering Facility: [facility] Address: [address] [place] [address] Performed By: #### 5 7021-8 ####[facility] CITYNCSARAHA [id number] [place] [address] [place] [facility] Comprehensive metabolic 2000 panelon 01-03-2025 Albumin [Mass/Vol] 4.6 g/dL Normal 3.9-4.9 [facility] Comment on above: Order Comment: Speci men Type: BLOOD SPECIMENOrdering Facility: [facility] Address: [address] [place] [address] Performed By: #### 2 4323-8 ####[facility] CITYNCLIA [id number] [place] [address] [place] ALP [Catalytic activity/Vol] 54 U/L Normal 34-123 [facility] Comment on above: Order Comment: Speci men Type: BLOOD SPECIMENOrdering Facility: [facility] Address: [address] [place] [address] Performed By: #### 2 4323-8 ####[facility] CITYNCLIA [id number] [place] [address] [place] ALT [Catalytic activity/Vol] 18 U/L Normal 7-38 [facility] Comment on above: Order Comment: Speci men Type: BLOOD SPECIMENOrdering Facility: [facility] Address: [address] [place] [address] Performed By: #### 2 4323-8 ####[facility] JOHNATHON MILLTOWNCLIA [id number] [place] [address] [place] Anion gap [Moles/Vol] 15 mmol/L Normal 8-15 [facility] Comment on above: Order Comment: Speci men Type: BLOOD SPECIMENOrdering Facility: [facility] Address: [address] [place] [address] Performed By: #### 2 4323-8 ####[facility] MILLTOWNCLIA [id number] [place] [address] [place] AST [Catalytic activity/Vol] 20 U/L Normal 13-35 [facility] Comment on above: Order Comment: Speci men Type: BLOOD SPECIMENOrdering Facility: [facility] Address: [address] [place] [address] Performed By: #### 2 4323-8 ####[facility] MILLWNCLIA [id number] [place] [address] [place] Bilirubin [Mass/Vol] 0.5 mg/dL Normal 0.2-1.3 [facility] Comment on above: Order Comment: Speci men Type: BLOOD SPECIMENOrdering Facility: [facility] Address: [address] [place] [address] Performed By: #### 2 4323-8 ####[facility] MILLTOWNCLIA [id number] [place] [address] [place] Calcium [Mass/Vol] 9.9 mg/dL Normal 8.5-10.2 [facility] Comment on above: Order Comment: Speci men Type: BLOOD SPECIMENOrdering Facility: [facility] Address: [address] [place] [address] Performed By: #### 2 4323-8 ####[facility] MILLWNCLIA [id number] [place] [address] [place] Chloride [Moles/Vol] 103 mmol/L Normal 98-107 [facility] Comment on above: Order Comment: Speci men Type: BLOOD SPECIMENOrdering Facility: [facility] Address: [address] [place] [address] Performed By: #### 2 4323-8 ####[facility] [id number] [place] [address] [place] CO2 [Moles/Vol] 24 mmol/L Normal 22-30 [facility] Comment on above: Order Comment: Speci men Type: BLOOD SPECIMENOrdering Facility: [facility] Address: [address] [place] [address] Performed By: #### 2 4323-8 ####[facility] [id number] [place] [address] [place] Creatinine [Mass/Vol] 0.97 mg/dL High 0.58-0.96 [facility] Comment on above: Order Comment: Speci men Type: BLOOD SPECIMENOrdering Facility: [facility] Address: [address] [place] [address] Performed By: #### 2 4323-8 ####[facility] [id number] [place] [address] [place] [facility] Creatinine and Glomerular filtration rate.predicted panel (S/P/Bld) 70 mL/min/1.73m??? Normal >=60 [facility] Comment on above: Order Comment: Speci men Type: BLOOD SPECIMENOrdering Facility: [facility] Address: [address] [place] [address] Result Comment: Angie mated Glomerular Filtration Rate [...] actual GFR. Performed By: #### 2 4323-8 ####[facility] JOLENEHAMPTONNCLIA [id number] [place] [address] [place] Glucose [Mass/Vol] 91 mg/dL Normal 74-99 [facility] Comment on above: Order Comment: Speci men Type: BLOOD SPECIMENOrdering Facility: [facility] Address: [address] [place] [address] Result Comment: The [place] [employer] (ADA) provides guidance for cutoff [...] Standards of Medical Care in Diabetes 2016, [place] [employer]. Diabetes Care. 2016.39(Suppl 1). Performed By: #### 2 4323-8 ####[facility] [id number] [place] [address] [place] Potassium [Moles/Vol] 3.7 mmol/L Normal 3.7-5.1 [facility] Comment on above: Order Comment: Speci men Type: BLOOD SPECIMENOrdering Facility: [facility] Address: [address] [place] [id number] Performed By: #### 2 4323-8 ####[facility] [id number] [place] [address] [place] Protein [Mass/Vol] 7.1 g/dL Normal 6.3-8.0 [facility] Comment on above: Order Comment: Zacharyi men Type: BLOOD SPECIMENOrdering Facility: [facility] Address: [address] [place], [place] [address] Performed By: #### 2 4323-8 ####[facility] DEBORAHWNCLIA [id number] [place] [address] [place] Sodium [Moles/Vol] 142 mmol/L Normal 136-144 [facility] Comment on above: Order Comment: Speci men Type: BLOOD SPECIMENOrdering Facility: [facility] Address: [facility] [place] [id number] Performed By: #### 2 4323-8 ####[facility] PATRIANCLIA [id number] [place] [address] [place] Urea nitrogen [Mass/Vol] 17 mg/dL Normal 7-21 [facility] Comment on above: Order Comment: Speci men Type: BLOOD SPECIMENOrdering Facility: [facility] Address: [address] [place], [place] [address] [id number] Performed By: #### 2 4323-8 ####[facility] JOLENEHAMPTONNCLIA [id number] [address] [place] CNOVSPon 12-12-2024 CNOVS Visit (SP) Office (HEMHERI) ROSALINDA RUSSO ([id number]) 1970 F Date Time Provider Department 12/12/24 [...] guidelines. Discussed case with Dr Ngo at [facility] CLINICAL IMPRESSION: CML chronic phase Currently in [...] HISTORY Procedure Laterality Date SECTION HX 01/2013 [facility] CHOLECYSTECTOMY 2009 [facility] HERNIA REPAIR HX 11/2013 Dr [facility]ado [facility] LAPAROSCOPY REPAIR INCISIONAL HERNIA REDUCIBLE 07/2013 [facility] FAMILY HISTORY Problem Relation Age of [...] which included preparing to see the patient, [id number] patient care, completing clinical documentation, obtaining and/or [...] [175] Primary Visit Diagnosis:CML (chronic myeloid leukemia) ([facility]) [C92.10] Order(s):dasatinib (SPRYCEL) 140 mg tabletTake 1 tablet (140 mg) by mouth once daily.Disp: 30 tabletRfl: 11 COMPLETE BLOOD COUNT AND (more content not included)... Normal [facility] BCR/ABL1 P210 %IS PANELon BCR/ABL1 P210 %IS 0.6228 Normal [facility] Comment on above: Order Comment: Speci men Type: BLOOD SPECIMENOrdering Facility: [facility] Address: [address] [place] [address] Performed By: #### P 210P ####[facility] ILLUMINA LIMSCLIA [id number] [place] [address] [place]#### 210ISBP ####[facility] LABCL[facility] [id number] [address] [place] BCR/ABL1 P210 MR 2.21 Normal [facility] Comment on above: Order Comment: Speci men Type: BLOOD SPECIMENOrdering Facility: [facility] Address: [address] [place] [address] Performed By: #### P 210P ####[facility] LIMSCLIA [id number] [address] [place]#### 210ISBP ####[facility] LAB[facility] [id number] [address] [place] BCR/ABL1 P210 QUANTITATIVE P CR BLOODon 12-02-2024 BCR/ABL1 P210 INTERPRETATION Normal [facility] Comment on above: Order Comment: Speci men Type: BLOOD SPECIMENOrdering Facility: [facility] Address: [address] [place] [address] Result Comment: BCR/ ABL1 p210 Quantitative PCR Laboratory Accession Number: [id number] Result: DETECTED MR: 2.21 %IS: 0.6228 Interpretation: p210 BCR/ABL1 transcripts were detected. Quantitative results are expressed on the International Scale (IS) and a log molecular response (MR) is calculated. On this scale, a value of less than or equal to 0.1% corresponds to a major molecular response (MMR or MR3.0). Methodology: The [employer] QuantideX BCR/ABL IS assay is an FDA-cleared [...] By: #### P 210P ####[facility] LIMSCLIA [id number] [address] OF [facility]#### 210ISBP ####[facility] LABCL[facility] [id number] [place] [id number] [place] CBC W Auto Differential pane l (Bld)on 12-02-2024 Basophils (Bld) [#/Vol] 0.09 10*3/uL Normal <0.11 [facility] Comment on above: Order Comment: Speci men Type: BLOOD SPECIMENOrdering Facility: [facility] Address: [address] [place] [address] Performed By: #### 5 7021-8 ####[facility] [id number] [place] [address] [place] Basophils/100 WBC (Bld) 1.3 % Normal [facility] Comment on above: Order Comment: Speci men Type: BLOOD SPECIMENOrdering Facility: [facility] Address: [address] [place] [address] Performed By: #### 5 7021-8 ####[facility] [id number] [place] [address] [place] Differential cell count method Nom (Bld) Auto Normal [facility] Comment on above: Order Comment: Speci men Type: BLOOD SPECIMENOrdering Facility: [facility] Address: [address] [place] [address] Performed By: #### 5 7021-8 ####[facility] [id number] [place] [address] [place] Eosinophils (Bld) [#/Vol] 0.19 10*3/uL Normal <0.46 [facility] Comment on above: Order Comment: Speci men Type: BLOOD SPECIMENOrdering Facility: [facility] Address: [address] [place] [address] Performed By: #### 5 7021-8 ####[facility] [id number] [place] [address] [place] Eosinophils/100 WBC (Bld) 2.8 % Normal [facility] Comment on above: Order Comment: Speci men Type: BLOOD SPECIMENOrdering Facility: [facility] Address: [address] [place] [address] Performed By: #### 5 7021-8 ####[facility] [id number] [place] [address] [place] Erythrocyte distribution width (RBC) [Ratio] 13.2 % Normal 11.5-15.0 [facility] Comment on above: Order Comment: Speci men Type: BLOOD SPECIMENOrdering Facility: [facility] Address: [address] [place] [address] Performed By: #### 5 7021-8 ####[facility] [id number] [place] [address] [place] Hematocrit (Bld) [Volume fraction] 38.7 % Normal 36.0-46.0 [facility] Comment on above: Order Comment: Speci men Type: BLOOD SPECIMENOrdering Facility: [facility] Address: [address] [place] [address] Performed By: #### 5 7021-8 ####[facility] [id number] [place] [address] [place] Hemoglobin (Bld) [Mass/Vol] 13.4 g/dL Normal 11.5-15.5 [facility] Comment on above: Order Comment: Speci men Type: BLOOD SPECIMENOrdering Facility: [facility] Address: [address] [place] [address] Performed By: #### 5 7021-8 ####[facility] MILLTOWNCLIA [id number] [place] [address] [place] Immature granulocytes (Bld) [#/Vol] 10*3/uL Normal <0.10 [facility] Comment on above: Order Comment: Speci men Type: BLOOD SPECIMENOrdering Facility: [facility] Address: [address] [place] [address] Performed By: #### 5 7021-8 ####[facility] MILLWNCLIA [id number] [place] [address] [place] Immature granulocytes/100 WBC (Bld) 0.3 % Normal [facility] Comment on above: Order Comment: Speci men Type: BLOOD SPECIMENOrdering Facility: [facility] Address: [address] [place] [address] Performed By: #### 5 7021-8 ####[facility] DEBORAHWNCLIA [id number] [place] [address] [place] Lymphocytes (Bld) [#/Vol] 2.04 10*3/uL Normal 1.00-4.00 [facility] Comment on above: Order Comment: Speci men Type: BLOOD SPECIMENOrdering Facility: [facility] Address: [address] [place] [address] Performed By: #### 5 7021-8 ####[facility] MILLTOWNCLIA [id number] [place] [address] [place] Lymphocytes/100 WBC (Bld) 30.3 % Normal [facility] Comment on above: Order Comment: Speci men Type: BLOOD SPECIMENOrdering Facility: [facility] Address: [address] [place] [address] Performed By: #### 5 7021-8 ####[facility] [id number] [place] [address] [place] MCH (RBC) [Entitic mass] 32.3 pg Normal 26.0-34.0 [facility] Comment on above: Order Comment: Speci men Type: BLOOD SPECIMENOrdering Facility: [facility] Address: [address] [place] [address] Performed By: #### 5 7021-8 ####[facility] [id number] [place] [address] [place] MCHC (RBC) [Mass/Vol] 34.6 g/dL Normal 30.5-36.0 [facility] Comment on above: Order Comment: Speci men Type: BLOOD SPECIMENOrdering Facility: [facility] Address: [address] [place] [address] Performed By: #### 5 7021-8 ####[facility] [id number] [place] [address] [place] MCV (RBC) [Entitic vol] 93.3 fL Normal 80.0-100.0 [facility] Comment on above: Order Comment: Speci men Type: BLOOD SPECIMENOrdering Facility: [facility] Address: [address] [place] [address] Performed By: #### 5 7021-8 ####[facility] [id number] [place] [address] [place] Monocytes (Bld) [#/Vol] 0.46 10*3/uL Normal <0.87 [facility] Comment on above: Order Comment: Speci men Type: BLOOD SPECIMENOrdering Facility: [facility] Address: [address] [place] [address] Performed By: #### 5 7021-8 ####[facility] [id number] [place] [address] [place] Monocytes/100 WBC (Bld) 6.8 % Normal [facility] Comment on above: Order Comment: Speci men Type: BLOOD SPECIMENOrdering Facility: [facility] Address: [address] [place] [address] Performed By: #### 5 7021-8 ####[facility] [id number] [place] [address] [place] Neutrophils (Bld) [#/Vol] 3.94 10*3/uL Normal 1.45-7.50 [facility] Comment on above: Order Comment: Speci men Type: BLOOD SPECIMENOrdering Facility: [facility] Address: [address] [place] [address] Performed By: #### 5 7021-8 ####[facility] [id number] [place] [address] [place] Neutrophils/100 WBC (Bld) 58.5 % Normal [facility] Comment on above: Order Comment: Speci men Type: BLOOD SPECIMENOrdering Facility: [facility] Address: [address] [place] [address] Performed By: #### 5 7021-8 ####[facility] [id number] [place] [address] [place] Nucleated RBC (Bld) [#/Vol] 10*3/uL Normal <0.01 [facility] Comment on above: Order Comment: Speci men Type: BLOOD SPECIMENOrdering Facility: [facility] Address: [address] [place] [address] Performed By: #### 5 7021-8 ####[facility] [id number] [place] [address] [place] Nucleated RBC/100 WBC (Bld) [Ratio] 0.0 /100 WBC Normal [facility] Comment on above: Order Comment: Speci men Type: BLOOD SPECIMENOrdering Facility: [facility] Address: [address] [place] [address] Performed By: #### 5 7021-8 ####[facility] PATRIANCSARAHA [id number] [place] [address] [place] Platelet mean volume (Bld) [Entitic vol] 9.7 fL Normal 9.0-12.7 [facility] Comment on above: Order Comment: Speci men Type: BLOOD SPECIMENOrdering Facility: [facility] Address: [address] [place] [address] Performed By: #### 5 7021-8 ####[facility] CITYNCNIMO [id number] [place] [address] [place] Platelets (Bld) [#/Vol] 168 10*3/uL Normal 150-400 [facility] Comment on above: Order Comment: Speci men Type: BLOOD SPECIMENOrdering Facility: [facility] Address: [address] [place] [address] Performed By: #### 5 7021-8 ####[facility] CITYNCLIA [id number] [place] [address] [place] RBC (Bld) [#/Vol] 4.15 10*6/uL Normal 3.90-5.20 [facility] Comment on above: Order Comment: Speci men Type: BLOOD SPECIMENOrdering Facility: [facility] Address: [address] [place] [address] Performed By: #### 5 7021-8 ####[facility] CITYNCLIA [id number] [place] [address] [place] WBC (Bld) [#/Vol] 6.74 10*3/uL Normal 3.70-11.00 [facility] Comment on above: Order Comment: Speci men Type: BLOOD SPECIMENOrdering Facility: [facility] Address: [address] [place] [address] Performed By: #### 5 7021-8 ####[facility] MILLTOWNCLIA [id number] [place] [address] [place] Comprehensive metabolic 2000 panelon 12-02-2024 Albumin [Mass/Vol] 4.7 g/dL Normal 3.9-4.9 [facility] Comment on above: Order Comment: Speci men Type: BLOOD SPECIMENOrdering Facility: [facility] Address: [address] [place] [address] Performed By: #### 2 4323-8 ####[facility] MILLTOWNCLIA [id number] [place] [address] [place] ALP [Catalytic activity/Vol] 50 U/L Normal 34-123 [facility] Comment on above: Order Comment: Speci men Type: BLOOD SPECIMENOrdering Facility: [facility] Address: [address] [place] [address] Performed By: #### 2 4323-8 ####[facility] MILLWNCLIA [id number] [place] [address] [place] ALT [Catalytic activity/Vol] 21 U/L Normal 7-38 [facility] Comment on above: Order Comment: Speci men Type: BLOOD SPECIMENOrdering Facility: [facility] Address: [address] [place] [address] Performed By: #### 2 4323-8 ####[facility] MILLTOWNCLIA [id number] [place] [address] [place] Anion gap [Moles/Vol] 9 mmol/L Normal 8-15 [facility] Comment on above: Order Comment: Speci men Type: BLOOD SPECIMENOrdering Facility: [facility] Address: [address] [place] [address] Performed By: #### 2 4323-8 ####[facility]ITALWNCLIA [id number] [place] [address] [place] AST [Catalytic activity/Vol] 22 U/L Normal 13-35 [facility] Comment on above: Order Comment: Speci men Type: BLOOD SPECIMENOrdering Facility: [facility] Address: [address] [place] [address] Performed By: #### 2 4323-8 ####[facility] HOSPITALWNCLI [id number] [place] [address] [place] Bilirubin [Mass/Vol] 0.6 mg/dL Normal 0.2-1.3 [facility] Comment on above: Order Comment: Speci men Type: BLOOD SPECIMENOrdering Facility: [facility] Address: [address] [place] [address] Performed By: #### 2 4323-8 ####[facility] [id number] [place] [address] [place] Calcium [Mass/Vol] 10.0 mg/dL Normal 8.5-10.2 [facility] Comment on above: Order Comment: Speci men Type: BLOOD SPECIMENOrdering Facility: [facility] Address: [address] [place] [address] Performed By: #### 2 4323-8 ####[facility] [id number] [place] [address] [place] Chloride [Moles/Vol] 101 mmol/L Normal 98-107 [facility] Comment on above: Order Comment: Speci men Type: BLOOD SPECIMENOrdering Facility: [facility] Address: [address] [place] [address] Performed By: #### 2 4323-8 ####[facility] CITYNCLI [id number] [place] [address] [place] CO2 [Moles/Vol] 29 mmol/L Normal 22-30 [facility] Comment on above: Order Comment: Speci men Type: BLOOD SPECIMENOrdering Facility: [facility] Address: [address] [place] [address] Performed By: #### 2 4323-8 ####[facility] JOLENEHAMPTONNCLIA [id number] [place] [address] [place] Creatinine [Mass/Vol] 0.99 mg/dL High 0.58-0.96 [facility] Comment on above: Order Comment: Speci men Type: BLOOD SPECIMENOrdering Facility: [facility] Address: [address] [place] [address] Performed By: #### 2 4323-8 ####[facility] CITYNCLIA [id number] [place] [address] [place] Creatinine and Glomerular filtration rate.predicted panel (S/P/Bld) 69 mL/min/1.73m??? Normal >=60 [facility] Comment on above: Order Comment: Ryan men Type: BLOOD SPECIMENOrdering Facility: [facility] Address: [address] [place] [address] Result Comment: Angie mated Glomerular Filtration Rate [...] GFR. Performed By: #### 2 4323-8 ####[facility] CITY[facility]CLIA [id number] [place] [address] [place] Glucose [Mass/Vol] 97 mg/dL Normal 74-99 [facility] Comment on above: Order Comment: Speci men Type: BLOOD SPECIMENOrdering Facility: [facility] Address: [address] [place] [address] Result Comment: The [place] [employer] (ADA) provides guidance for cutoff [...] Standards of Medical Care in Diabetes 2016, [place] [employer]. Diabetes Care. 2016.39(Suppl 1). Performed By: #### 2 4323-8 ####[facility] JOHNATHON MILLTOWNCLIA [id number] [place] [address] [place] Potassium [Moles/Vol] 3.9 mmol/L Normal 3.7-5.1 [facility] Comment on above: Order Comment: Ryan rangel Type: BLOOD SPECIMENOrdering Facility: [facility] Address: [address] [place] [address] Performed By: #### 2 4323-8 ####[facility] MILLWNCLIA [id number] [place] [address] [place] Protein [Mass/Vol] 7.3 g/dL Normal 6.3-8.0 [facility] Comment on above: Order Comment: Ryan rangel Type: BLOOD SPECIMENOrdering Facility: [facility] Address: [address] [place] [address] Performed By: #### 2 4323-8 ####[facility]ITALWNCLIA [id number] [place] [address] [place] Sodium [Moles/Vol] 139 mmol/L Normal 136-144 [facility] Comment on above: Order Comment: Zacharyi men Type: BLOOD SPECIMENOrdering Facility: [facility] Address: [address] [place] [address] Performed By: #### 2 4323-8 ####[facility] MILLWNCLIA [id number] [place] [address] [place] Urea nitrogen [Mass/Vol] 17 mg/dL Normal 7-21 [facility] Comment on above: Order Comment: Speci men Type: BLOOD SPECIMENOrdering Facility: [facility] Address: [place] [address] Performed By: #### 2 4323-8 ####[facility] JOHNATHON RAMIREZ [id number] [place] [address] [place] US Pelvison 10-02-2024 [...] LMP on 09/11/2024. Cycle: LMP date uncertain. RECORDS MANAGEMENT ASSISTANT 10/14/23 Method Transabdominal, transvaginal, 3D ultrasound examination, [...] Read By: Brad Leone M.D. MATERNAL MEDICINE [facility] CNOVon 09-29-2024 CNOV Office Visit (OBGYWM ) ROSALINDA RUSSO ([id number]) 1970 F Date Time Provider Department 09/29/24 [...] symptoms return and consider in OR hysteroscopy [facility] Marga Crowe MD [place], [place] 09/29/2024 9:42 AM Signed YOUR RECOVERY [...] contact the office. Referring Provider: MARGA CROWE [[id number]] Allergies As of Date: 09/29/2024 (No Known Allergies) Date Reviewed: 09/29/2024 Reviewed by: Jessica Lo MA - Fully Assessed Reason for Visit: Endometrial Biopsy [5111] Primary Visit Diagnosis:Endometrial thickening on ultrasound [R93.89] Order(s):SURGICAL PATHOLOGY [LMV4243] Order #: [id number]. #:[id number] UA DIP,URINE HCG (POC) [5366064] Order #: [id number] OFFICE HYSTEROSCOPY [3932110] Order #: [id number] progesterone micronized (PROMETRIUM) 200 mg capsuleTake 1 [...] mouth on (more content not included)... Normal [facility] Pathology biopsy report Clovis (Tiss)on 09-29-2024 CASE REPORT Normal [facility] Comment on above: Order Comment: Speci men Type: TISSUE SPECIMEN Ordering Facility: [facility] Address: [address] [place] [address] Result Comment: Surg [facility] Pathology Report Case: [id number] Authorizing Provider: Marga Crowe MD Collected: 09/29/2024 10:56 AM Ordering Location: OB/Gynecology Received: 09/29/2024 12:14 PM Pathologist: Arleen Bullock MD Specimen: Endometrium, Biopsy Performed By: #### 6 6121-5 #### [facility] CLIA [id number] [address] [place] [address] [place] [address] [place] CLINICAL HISTORY endometrial thickening Normal [facility] Comment on above: Order Comment: Speci men Type: TISSUE SPECIMEN Ordering Facility: [facility] Address: [address] [place] [address] Performed By: #### 6 6121-5 #### [facility] CLIA [id number] [address] [place] [address] [place] FINAL DIAGNOSIS Normal [facility] Comment on above: Order Comment: Speci men Type: TISSUE SPECIMEN Ordering Facility: [facility] Address: [address] [place] [address] Result Comment: Endo metrium, biopsy - Benign proliferative endometrium. - Benign endocervix. at 1247 EST Performed By: #### 6 6121-5 #### [facility] CLIA [id number] [address] [place] [address] [place] FINAL PERFORMING LAB Normal [facility] Comment on above: Order Comment: Speci men Type: TISSUE SPECIMEN Ordering Facility: [facility] Address: [address] [place] [address] Result Comment: Diag nostic interpretation performed at: [facility], [address] [place] [address] CLIA# [id number] Plate Molder: Laci Mauricio MD Performed By: #### 6 6121-5 #### [facility] CLIA [id number] [address] [place] [address] [place] GROSS DESCRIPTION Normal [facility] Comment on above: Order Comment: Speci men Type: TISSUE SPECIMEN Ordering Facility: [facility] Address: [address] [place] [address] Result Comment: A. E ndometrium, Biopsy Received in formalin are multiple trent-brown, soft feathery segments of tissue admixed with mucinous material and red-brown hemorrhagic material aggregating to 2.8 x 2.1 x 0.2 cm. Totally submitted in one cassette. Gross examination performed at [facility], [address] [place] [address], [place] [id number] [place] September 29, 2024 4:49 PM Performed By: #### 6 6121-5 #### [facility] CLIA [id number] [address] [place] [address] [id number] [address] [place] US Pelvison 09-29-2024 Radiology Study observation (narrative) [facility] CNOVon 09-23-2024 CNOV Office Visit (INTMWS ) ROSALINDA RUSSO ([id number]) 1970 F Date Time Provider Department 09/23/24 [...] and few other issues She has a manager psychiatry in [place], sees him yearly. Her periods were very [...] bloating, easy satiety, abdominal pain, or other manager psychiatry symptoms She does have some hot flashes, [...] regularly. 09/23/24: followed up for spotting with APPLICATION DEVELOPER who performed US and will have a [...] HISTORY Procedure Laterality Date SECTION HX 01/2013 [facility] CHOLECYSTECTOMY 2009 [facility] HERNIA REPAIR HX 11/2013 Dr Hurtado - [facility] LAPAROSCOPY REPAIR INCISIONAL HERNIA REDUCIBLE 07/2013 [facility] FAMILY HISTORY Problem Relation Age of [...] No fevers, (more content not included)... Normal [facility] BCR/ABL1 P210 %IS PANELon BCR/ABL1 P210 %IS 0.5932 Normal [facility] Comment on above: Order Comment: Speci men Type: BLOOD SPECIMENOrdering Facility: [facility] Address: [address] [place] [address] Performed By: #### P 210P ####[facility] LIMSCLIA [id number] [place] [address] [place]#### 210ISBP ####[facility] [id number] [place] [address] [place] BCR/ABL1 P210 MR 2.23 Normal [facility] Comment on above: Order Comment: Speci men Type: BLOOD SPECIMENOrdering Facility: [facility] Address: [address] [place] [address] Performed By: #### P 210P ####[facility] LIMSCLIA [id number] [place] [address] [place]#### 210ISBP ####[facility] [id number] [address] [place] BCR/ABL1 P210 QUANTITATIVE P CR BLOODon 09-06-2024 BCR/ABL1 P210 INTERPRETATION Normal [facility] Comment on above: Order Comment: Speci men Type: BLOOD SPECIMENOrdering Facility: [facility] Address: [address] [place] [address] Result Comment: BCR/ ABL1 p210 Quantitative PCR Laboratory Accession Number: [id number] Result: DETECTED MR: 2.23 %IS: 0.5932 Interpretation: p210 BCR/ABL1 transcripts were detected. Quantitative results are expressed on the International Scale (IS) and a log molecular response (MR) is calculated. On this scale, a value of less than or equal to 0.1% corresponds to a major molecular response (MMR or MR3.0). Methodology: The [employer] QuantideX BCR/ABL IS assay is an FDA-cleared [...] By: #### P 210P ####[facility] LIMSCLIA [id number] [place] [address] [place]#### 210ISBP ####[facility] [id number] [place] [address] [place] CBC W Auto Differential pane l (Bld)on 09-06-2024 Basophils (Bld) [#/Vol] 0.06 10*3/uL Normal <0.11 [facility] Comment on above: Order Comment: Speci men Type: BLOOD SPECIMENOrdering Facility: [facility] Address: [address] [place] [address] Performed By: #### 5 7021-8 ####[facility] MILLWNCLIA [id number] [place] [address] [place] Basophils/100 WBC (Bld) 0.8 % Normal [facility] Comment on above: Order Comment: Speci men Type: BLOOD SPECIMENOrdering Facility: [facility] Address: [address] [place] [address] Performed By: #### 5 7021-8 ####[facility] CITYDEVLIA [id number] [place] [address] [place] Differential cell count method Nom (Bld) Auto Normal [facility] Comment on above: Order Comment: Speci men Type: BLOOD SPECIMENOrdering Facility: [facility] Address: [address] [place] [address] Performed By: #### 5 7021-8 ####[facility] [id number] [place] [address] [place] Eosinophils (Bld) [#/Vol] 0.26 10*3/uL Normal <0.46 [facility] Comment on above: Order Comment: Speci men Type: BLOOD SPECIMENOrdering Facility: [facility] Address: [address] [place] [address] Performed By: #### 5 7021-8 ####[facility] [id number] [place] [address] [place] Eosinophils/100 WBC (Bld) 3.6 % Normal [facility] Comment on above: Order Comment: Speci men Type: BLOOD SPECIMENOrdering Facility: [facility] Address: [address] [place] [address] Performed By: #### 5 7021-8 ####[facility] [id number] [place] [address] [place] Erythrocyte distribution width (RBC) [Ratio] 13.5 % Normal 11.5-15.0 [facility] Comment on above: Order Comment: Speci men Type: BLOOD SPECIMENOrdering Facility: [facility] Address: [address] [place] [address] Performed By: #### 5 7021-8 ####[facility] [id number] [place] [address] [place] Hematocrit (Bld) [Volume fraction] 38.7 % Normal 36.0-46.0 [facility] Comment on above: Order Comment: Speci men Type: BLOOD SPECIMENOrdering Facility: [facility] Address: [address] [place] [address] Performed By: #### 5 7021-8 ####[facility] [id number] [place] [address] [place] Hemoglobin (Bld) [Mass/Vol] 13.7 g/dL Normal 11.5-15.5 [facility] Comment on above: Order Comment: Speci men Type: BLOOD SPECIMENOrdering Facility: [facility] Address: [address] [place] [address] Performed By: #### 5 7021-8 ####[facility] [id number] [place] [address] [place] Immature granulocytes (Bld) [#/Vol] 10*3/uL Normal <0.10 [facility] Comment on above: Order Comment: Speci men Type: BLOOD SPECIMENOrdering Facility: [facility] Address: [address] [place] [address] Performed By: #### 5 7021-8 ####[facility] [id number] [place] [address] [place] Immature granulocytes/100 WBC (Bld) 0.3 % Normal [facility] Comment on above: Order Comment: Speci men Type: BLOOD SPECIMENOrdering Facility: [facility] Address: [address] [place] [address] Performed By: #### 5 7021-8 ####[facility] JOLENEWNCLIA [id number] [place] [address] [place] Lymphocytes (Bld) [#/Vol] 2.12 10*3/uL Normal 1.00-4.00 [facility] Comment on above: Order Comment: Speci men Type: BLOOD SPECIMENOrdering Facility: [facility] Address: [address] [place] [address] Performed By: #### 5 7021-8 ####[facility] CITY[facility] [id number] [place] [address] [place] Lymphocytes/100 WBC (Bld) 29.2 % Normal [facility] Comment on above: Order Comment: Speci men Type: BLOOD SPECIMENOrdering Facility: [facility] Address: [address] [place] [address] Performed By: #### 5 7021-8 ####[facility] [id number] [place] [address] [place] MCH (RBC) [Entitic mass] 33.2 pg Normal 26.0-34.0 [facility] Comment on above: Order Comment: Speci men Type: BLOOD SPECIMENOrdering Facility: [facility] Address: [address] [place] [address] Performed By: #### 5 7021-8 ####[facility]CL[facility] [id number] [place] [address] [place] MCHC (RBC) [Mass/Vol] 35.4 g/dL Normal 30.5-36.0 [facility] Comment on above: Order Comment: Speci men Type: BLOOD SPECIMENOrdering Facility: [facility] Address: [address] [place] [address] Performed By: #### 5 7021-8 ####[facility] [id number] [place] [address] [place] MCV (RBC) [Entitic vol] 93.7 fL Normal 80.0-100.0 [facility] Comment on above: Order Comment: Speci men Type: BLOOD SPECIMENOrdering Facility: [facility] Address: [address] [place] [address] Performed By: #### 5 7021-8 ####[facility] [id number] [place] [address] [place] Monocytes (Bld) [#/Vol] 0.51 10*3/uL Normal <0.87 [facility] Comment on above: Order Comment: Speci men Type: BLOOD SPECIMENOrdering Facility: [facility] Address: [address] [place] [address] Performed By: #### 5 7021-8 ####[facility] [id number] [place] [address] [place] Monocytes/100 WBC (Bld) 7.0 % Normal [facility] Comment on above: Order Comment: Speci men Type: BLOOD SPECIMENOrdering Facility: [facility] Address: [address] [place] [address] Performed By: #### 5 7021-8 ####[facility] [id number] [place] [address] [place] Neutrophils (Bld) [#/Vol] 4.29 10*3/uL Normal 1.45-7.50 [facility] Comment on above: Order Comment: Speci men Type: BLOOD SPECIMENOrdering Facility: [facility] Address: [address] [place] [address] Performed By: #### 5 7021-8 ####[facility] [id number] [place] [address] [place] Neutrophils/100 WBC (Bld) 59.1 % Normal [facility] Comment on above: Order Comment: Speci men Type: BLOOD SPECIMENOrdering Facility: [facility] Address: [address] [place] [address] Performed By: #### 5 7021-8 ####[facility] [id number] [place] [address] [place] Nucleated RBC (Bld) [#/Vol] 10*3/uL Normal <0.01 [facility] Comment on above: Order Comment: Speci men Type: BLOOD SPECIMENOrdering Facility: [facility] Address: [address] [place] [address] Performed By: #### 5 7021-8 ####[facility] [id number] [place] [address] [place] Nucleated RBC/100 WBC (Bld) [Ratio] 0.0 /100 WBC Normal [facility] Comment on above: Order Comment: Speci men Type: BLOOD SPECIMENOrdering Facility: [facility] Address: [address] [place] [address] Performed By: #### 5 7021-8 ####[facility] [id number] [place] [address] [place] Platelet mean volume (Bld) [Entitic vol] 9.5 fL Normal 9.0-12.7 [facility] Comment on above: Order Comment: Speci men Type: BLOOD SPECIMENOrdering Facility: [facility] Address: [address] [place] [address] Performed By: #### 5 7021-8 ####[facility] [id number] [place] [address] [place] Platelets (Bld) [#/Vol] 166 10*3/uL Normal 150-400 [facility] Comment on above: Order Comment: Speci men Type: BLOOD SPECIMENOrdering Facility: [facility] Address: [address] [place] [address] Performed By: #### 5 7021-8 ####[facility] JOHNATHON ESPAÑANCLIA [id number] [place] [address] [place] RBC (Bld) [#/Vol] 4.13 10*6/uL Normal 3.90-5.20 [facility] Comment on above: Order Comment: Speci men Type: BLOOD SPECIMENOrdering Facility: [facility] Address: [address] [place] [address] Performed By: #### 5 7021-8 ####[facility] JOHNATHON ESPAÑANCLIA [id number] [place] [address] [place] WBC (Bld) [#/Vol] 7.26 10*3/uL Normal 3.70-11.00 [facility] Comment on above: Order Comment: Speci men Type: BLOOD SPECIMENOrdering Facility: [facility] Address: [address] [place] [address] Performed By: #### 5 7021-8 ####[facility] JOHNATHON ESPAÑANCLIA [id number] [place] [address] [place] CNTHERAPYon 09-06-2024 CNTHERAPY OT/PT/Speech Visit (PTWS) ROSALINDA RUSSO ([id number]) 1970 F Date Time Provider Department 09/06/24 1:15 PM NEGRO DAWSON PTLAKSHMI Date Time Provider Department Center 09/06/2024 1:15 PM [id number], SEAN PTLAKSHMI [place] Reason for Visit: PT [...] Take 1 tablet by mouth once daily. Lathe Mechanic: Addendum Therapy (PT/OT/Speech/Resp) ID: [id number] 09/06/2024 1:35 PM Author: NEGRO DAWSON Signed by NEGRO DAWSON PT on 09/06/2024 at 1:36 PM * * * This document replaces document [id number] * * * Document text: Program_ID:[id number] Access Code: [email or web address] URL: [email or web address] Date: 09-06-2024 Prepared By: Negro Dawson Program [...] 3 sets - 10 reps -- Normal [facility] Comprehensive metabolic 2000 panelon 09-06-2024 Albumin [Mass/Vol] 4.2 g/dL Normal 3.9-4.9 [facility] Comment on above: Order Comment: Speci men Type: BLOOD SPECIMENOrdering Facility: [facility] Address: [address] [place] [address] Performed By: #### 2 4323-8 ####[facility] JOHNATHON RAMIREZ [id number] [place] [address] [place] ALP [Catalytic activity/Vol] 47 U/L Normal 34-123 [facility] Comment on above: Order Comment: Speci men Type: BLOOD SPECIMENOrdering Facility: [facility] Address: [address] [place] [address] Performed By: #### 2 4323-8 ####[facility] JOHNATHON MILLTOWNCLIA [id number] [place] [address] [place] ALT [Catalytic activity/Vol] 21 U/L Normal 7-38 [facility] Comment on above: Order Comment: Speci men Type: BLOOD SPECIMENOrdering Facility: [facility] Address: [address] [place] [address] Performed By: #### 2 4323-8 ####[facility] MILLTOWNCLIA [id number] [place] [address] [place] Anion gap [Moles/Vol] 8 mmol/L Normal 8-15 [facility] Comment on above: Order Comment: Speci men Type: BLOOD SPECIMENOrdering Facility: [facility] Address: [address] [place] [address] Performed By: #### 2 4323-8 ####[facility] JOHNATHON MILLTOWNCLIA [id number] [place] [address] [place] AST [Catalytic activity/Vol] 21 U/L Normal 13-35 [facility] Comment on above: Order Comment: Speci men Type: BLOOD SPECIMENOrdering Facility: [facility] Address: [address] [place] [address] Performed By: #### 2 4323-8 ####[facility] JOHNATHON MILLTOWNCLIA [id number] [place] [address] [place] Bilirubin [Mass/Vol] 0.3 mg/dL Normal 0.2-1.3 [facility] Comment on above: Order Comment: Speci men Type: BLOOD SPECIMENOrdering Facility: [facility] Address: [address] [place] [address] Performed By: #### 2 4323-8 ####[facility] MILLTOWNCLIA [id number] [place] [address] [place] Calcium [Mass/Vol] 9.4 mg/dL Normal 8.5-10.2 [facility] Comment on above: Order Comment: Speci men Type: BLOOD SPECIMENOrdering Facility: [facility] Address: [address] [place] [address] Performed By: #### 2 4323-8 ####[facility] MILLTOWNCLIA [id number] [place] [address] [place] Chloride [Moles/Vol] 102 mmol/L Normal 98-107 [facility] Comment on above: Order Comment: Speci men Type: BLOOD SPECIMENOrdering Facility: [facility] Address: [address] [place] [address] Performed By: #### 2 4323-8 ####[facility]ITALWNCLIA [id number] [place] [address] [place] CO2 [Moles/Vol] 30 mmol/L Normal 22-30 [facility] Comment on above: Order Comment: Speci men Type: BLOOD SPECIMENOrdering Facility: [facility] Address: [address] [place] [address] Performed By: #### 2 4323-8 ####[facility] MILLTOWNCLIA [id number] [place] [address] [place] Creatinine [Mass/Vol] 0.76 mg/dL Normal 0.58-0.96 [facility] Comment on above: Order Comment: Speci men Type: BLOOD SPECIMENOrdering Facility: [facility] Address: [address] [place] [address] Performed By: #### 2 4323-8 ####[facility] MILLTOWNCLIA [id number] [place] [address] [place] Creatinine and Glomerular filtration rate.predicted panel (S/P/Bld) 94 mL/min/1.73m??? Normal >=60 [facility] Comment on above: Order Comment: Ryan rangel Type: BLOOD SPECIMENOrdering Facility: [facility] Address: [address] [place] [address] Result Comment: Angie mated Glomerular Filtration Rate [...] actual GFR. Performed By: #### 2 4323-8 ####[facility] [id number] [place] [address] [place] Glucose [Mass/Vol] 97 mg/dL Normal 74-99 [facility] Comment on above: Order Comment: Ryan rangel Type: BLOOD SPECIMENOrdering Facility: [facility] Address: [address] [place] [address] Result Comment: The [place] [employer] (ADA) provides guidance for cutoff [...] Standards of Medical Care in Diabetes 2016, [place] [employer]. Diabetes Care. 2016.39(Suppl 1). Performed By: #### 2 4323-8 ####[facility] [id number] [place] [address] [place] Potassium [Moles/Vol] 3.7 mmol/L Normal 3.7-5.1 [facility] Comment on above: Order Comment: Ryan rangel Type: BLOOD SPECIMENOrdering Facility: [facility] Address: [address] [place] [address] Performed By: #### 2 4323-8 ####[facility]CLIA [id number] [place] [address] [place] Protein [Mass/Vol] 6.1 g/dL Low 6.3-8.0 [facility] Comment on above: Order Comment: Speci men Type: BLOOD SPECIMENOrdering Facility: [facility] Address: [address] [place] [address] Performed By: #### 2 4323-8 ####[facility] [id number] [address] [place] Sodium [Moles/Vol] 140 mmol/L Normal 136-144 [facility] Comment on above: Order Comment: Speci men Type: BLOOD SPECIMENOrdering Facility: [facility] Address: [address] [place] [address] Performed By: #### 2 4323-8 ####[facility] CITY[facility]CL[facility] [id number] [place] [address] [place] Urea nitrogen [Mass/Vol] 14 mg/dL Normal 7-21 [facility] Comment on above: Order Comment: Speci men Type: BLOOD SPECIMENOrdering Facility: [facility] Address: [address] [place] [address] Performed By: #### 2 4323-8 ####[facility]ITAL[facility]CLIA [id number] [address] [place] THERAPY NTon 09-06-2024 THERAPY NT HNO ID: [id number] Author: NEGRO DAWSON PT Service: ? Author Type: Physical Therapist Type: Therapy (PT/OT/Speech/Resp) Filed: 09/06/2024 13:36 Note Text: Program_ID:[id number] Access Code: [email or web address] URL: [email or web address] Date: 09-06-2024 Prepared By: Negro Dawson Program [...] - 3 sets - 10 reps Normal [facility] CNOVon 09-05-2024 CNOV Office Visit (OBGYWM ) ROSALINDA RUSSO ([id number]) 1970 F Date Time Provider Department 09/05/24 [...] pelvic US as recommended by her previous manager psychiatry in [place] and now moving care here so here to establish. Had hysteroscopy [facility] in 2022, disordered proliferative endometrium and polyp. Was on low dose control for a while after that. Here for discussion of options. 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 LAPAROSCOPY REPAIR INCISIONAL HERNIA REDUCIBLE 07/2013 [facility] FAMILY HISTORY Problem Relation Age of [...] of in (more content not included)... Normal [facility] CBC W/Diff, Automatedon 08-10 PLT MORPH LARGE Normal [facility] Comment on above: Performed By: #### L 500.4050, L501.4020, L100.0100 #### [facility] [address] [place], [address] PLT EST SLT DEC Normal ADEQ [facility] Comment on above: Performed By: #### L 500.4050, L501.4020, L100.0100 #### [facility] [address] [place], [address] SMEAR COMMENT SCANNED Normal [facility] Comment on above: Performed By: #### L 500.4050, L501.4020, L100.0100 #### [facility] [address] [place], [address] Chest 1 View (Portable)on Chest 1 View (Portable) [facility] Services [address] [place] [address] Chest 1 View (Portable) MR#: [id number] Acct: [id number] Name: ROSALINDA BARGER Rep #: [id number] : 1970 F 54 From: Erika Plata PCP: Dr. Eden Petersen MD Status: REG ER Study: Chest 1 View (Portable) Date of Exam: 08/26/24 Exam# [id number] Ordering Dr: Steve Welch MD [id number] INDICATION: Pain left side shoulder and chest [...] Steve Welch MD; Dr. Eden Petersen MD Quality Liaison: Signed Normal [facility] Comprehensive Metabolic Prof ilon 08-26-2024 Albumin [Mass/Vol] 3.6 g/dL Normal 3.2-5.0 [facility] Comment on above: Order Comment: 'TROP ' Serial specimen #1, #2 or #3: 1 Performed By: #### L 500.4050, L501.4020, L100.0100 #### [facility] [address] [place], [address] Albumin/Globulin [Mass ratio] 1.3 {ratio} Normal 0.9-2.4 [facility] Comment on above: Order Comment: 'TROP ' Serial specimen #1, #2 or #3: 1 Performed By: #### L 500.4050, L501.4020, L100.0100 #### [facility] [address] [place], [address] ALK P 54 U/L Normal 45-117 [facility] Comment on above: Order Comment: 'TROP ' Serial specimen #1, #2 or #3: 1 Performed By: #### L 500.4050, L501.4020, L100.0100 #### [facility] [address] [place], [address] ALT [Catalytic activity/Vol] 27 U/L Normal 13-56 [facility] Comment on above: Order Comment: 'TROP ' Serial specimen #1, #2 or #3: 1 Performed By: #### L 500.4050, L501.4020, L100.0100 #### [facility] [address] [place], [address] AST [Catalytic activity/Vol] 18 U/L Normal 15-37 [facility] Comment on above: Order Comment: 'TROP ' Serial specimen #1, #2 or #3: 1 Performed By: #### L 500.4050, L501.4020, L100.0100 #### [facility] [address] [place], [address] Bilirubin [Mass/Vol] 0.30 mg/dL Normal 0.20-1.00 [facility] Comment on above: Order Comment: 'TROP ' Serial specimen #1, #2 or #3: 1 Result Comment: For patients on eltrombopag therapy, use of Dimension [place] TBIL is not recommended. Performed By: #### L 500.4050, L501.4020, L100.0100 #### [facility] [address] [place], [address] BUN/CRE 25.7 RATIO High 10-20 [facility] Comment on above: Order Comment: 'TROP ' Serial specimen #1, #2 or #3: 1 Performed By: #### L 500.4050, L501.4020, L100.0100 #### [facility] [address] [place], [address] CA,Total 8.7 mg/dL Normal 8.5-10.1 [facility] Comment on above: Order Comment: 'TROP ' Serial specimen #1, #2 or #3: 1 Performed By: #### L 500.4050, L501.4020, L100.0100 #### [facility] [address] [place], [address] Chloride [Moles/Vol] 107 mmol/L Normal 98-107 [facility] Comment on above: Order Comment: 'TROP ' Serial specimen #1, #2 or #3: 1 Performed By: #### L 500.4050, L501.4020, L100.0100 #### [facility] [address] [place], [address] CO2 [Moles/Vol] 24.0 mmol/L Normal 21.0-32.0 [facility] Comment on above: Order Comment: 'TROP ' Serial specimen #1, #2 or #3: 1 Performed By: #### L 500.4050, L501.4020, L100.0100 #### [facility] [address] [place], [address] Creatinine [Mass/Vol] 0.74 mg/dL Normal 0.55-1.02 [facility] Comment on above: Order Comment: 'TROP ' Serial specimen #1, #2 or #3: 1 Result Comment: The validity of the calculated GFR GFRAA in patients over 70 years has not been determined. Clinical correlation is essential. Performed By: #### L 500.4050, L501.4020, L100.0100 #### [facility] [address] [place], [address] ECRCL 92.38 ml/min Normal [facility] Comment on above: Order Comment: 'TROP ' Serial specimen #1, #2 or #3: 1 Performed By: #### L 500.4050, L501.4020, L100.0100 #### [facility] [address] [place], [address] EST GFR - AA 106 mL/min Normal >60 [facility] Comment on above: Order Comment: 'TROP ' Serial specimen #1, #2 or #3: 1 Result Comment: Afri can [place] GFR Calc Performed By: #### L 500.4050, L501.4020, L100.0100 #### [facility] [address] [place], [address] GAP 6 Normal 5-15 [facility] Comment on above: Order Comment: 'TROP ' Serial specimen #1, #2 or #3: 1 Performed By: #### L 500.4050, L501.4020, L100.0100 #### [facility] [address] [place], [address] GFR/1.73 sq M.predicted among non-blacks MDRD (S/P/Bld) [Vol rate/Area] 88 mL/min/{1.73_m2} Normal >60 [facility] Comment on above: Order Comment: 'TROP ' Serial specimen #1, #2 or #3: 1 Result Comment: Non- GFR Calc Performed By: #### L 500.4050, L501.4020, L100.0100 #### [facility] [address] [place], [address] Globulin (S) [Mass/Vol] 2.7 g/dL Normal 2.2-4.2 [facility] Comment on above: Order Comment: 'TROP ' Serial specimen #1, #2 or #3: 1 Performed By: #### L 500.4050, L501.4020, L100.0100 #### [facility] [address] [place], [address] Glucose [Mass/Vol] 98 mg/dL Normal 74-106 [facility] Comment on above: Order Comment: 'TROP ' Serial specimen #1, #2 or #3: 1 Performed By: #### L 500.4050, L501.4020, L100.0100 #### [facility] [address] [place], [address] Potassium [Moles/Vol] 3.7 mmol/L Normal 3.5-5.1 [facility] Comment on above: Order Comment: 'TROP ' Serial specimen #1, #2 or #3: 1 Performed By: #### L 500.4050, L501.4020, L100.0100 #### [facility] [address] [place], [address] Sodium [Moles/Vol] 137 mmol/L Normal 136-145 [facility] Comment on above: Order Comment: 'TROP ' Serial specimen #1, #2 or #3: 1 Performed By: #### L 500.4050, L501.4020, L100.0100 #### [facility] [address] [place], [address] T PROT 6.3 g/dL Low 6.4-8.2 [facility] Comment on above: Order Comment: 'TROP ' Serial specimen #1, #2 or #3: 1 Performed By: #### L 500.4050, L501.4020, L100.0100 #### [facility] [address] [place], [address] Urea nitrogen [Mass/Vol] 19 mg/dL High 7-18 [facility] Comment on above: Order Comment: 'TROP ' Serial specimen #1, #2 or #3: 1 Performed By: #### L 500.4050, L501.4020, L100.0100 #### [facility] [address] [place], [address] Emergency Department Summary on 08-26-2024 Emergency Department Summary [facility] Medical Records Department [address] [place] [address] Emergency Department Summary 08/26/24 MR#: [id number] Acct: [id number] Name: ROSALINDA BARGER Rep #: [id number] [...] the feeling but states that its uncomfortable. [facility] Medical History CML (chronic myelocytic leukemia) Anxiety [...] she has (more content not included)... Normal [facility] L501.4020on 08-26-2024 TROPONIN-I HS 8 pg/mL Normal 3.0-54.0 [facility] Comment on above: Order Comment: 'TROP ' Serial specimen #1, #2 or #3: 1 Result Comment: Zohra licona Note: New Test Units and Gender Specific Reference Ranges. For more information see Policy Stat Procedure [place] High Sensitivity Troponin (TNIH) and attachments. Performed By: #### L 500.4050, L501.4020, L100.0100 #### [facility] [address] [place], [place], [address] Spine Cervical without Contr ason 08-26-2024 Spine Cervical without Contras [facility] Imaging Services [address] [place], [place] [address] Spine Cervical without Contras MR#: [id number] Acct: [id number] Name: ROSALINDA BARGER Rep #: [id number] 06 : 1970 F 54 From: Erika Plata PCP: Dr. Eden Petersen MD Status: REG ER Study: Spine Cervical without Contras Date of Exam: 0 08/26/24 Exam# [id number] Ordering Dr: Steve Welch MD [id number] INDICATION: Pain woke up at 2am with [...] Steve Welch MD; Dr. Eden Petersen MD Quality Liaison: Signed Normal [facility] 08-17-2024 HALIMA Telephone (RUTH) ROSALINDA RUSSO ([id number]) 1970 F Date Time Provider Department 08/17/24 [...] Encounter Status:Closed by DEMETRA BUTLER on 08/17/24 [facility] CNTHERAPYon 07-28-2024 CNTHERAPY OT/PT/Speech Visit (PTWS) ROSALINDA RUSSO ([id number]) 1970 F Date Time Provider Department 07/28/24 10:00 AM NEGRO DAWSON PTWS Date Time Provider Department Center 07/28/2024 10:00 AM [id number], SEAN PTWS Johnathon Mead Reason for Visit: [...] Take 1 tablet by mouth once daily. Lathe Mechanic: Therapy (PT/OT/Speech/Resp) ID: [id number] 07/28/2024 10:40 AM Author: NEGRO DAWSON Signed by NEGRO DAWSON PT on 07/28/2024 at 10:41 AM Document text: Program_ID:[id number] Access Code: [email or web address] URL: [email or web address]/ Date: 07-28-2024 Prepared By: Negro Dawson Program [...] 3 sets - 10 reps -- Normal [facility] THERAPY NTon 07-28-2024 THERAPY NT HNO ID: [id number] Author: NEGRO DAWSON PT Service: ? Author Type: Physical Therapist Type: Therapy (PT/OT/Speech/Resp) Filed: 07/28/2024 10:41 Note Text: Program_ID:[id number] Access Code: [email or web address] URL: [email or web address] Date: 07-28-2024 Prepared By: Negro Dawson Program [...] - 3 sets - 10 reps Normal [facility] CNPRoxane 07-01-2024 CNPN Telephone (INTMWS) KARANROSALINDA ([id number]) 1970 F Date Time Provider Department 07/01/24 [...] pelvic ultrasound I would send her to APPLICATION DEVELOPER and probably do endometrial sampling. Her results show that her uterus is thick but it is consistent with adenomyosis which is when the endometrial tissue exists within and grows into the uterine wall. Regards, Cyndi John MD, RN 07/05/2024 9:48 AM Signed Patient contacted and provider's message below was reviewed. Patient agreeable to see Gynecology and transferred to chorus master. Asking if Dr. Petersen could place order [...] G89.29] Order(s):CONSULT TO GYNECOLOGY [9013] Order #: [id number]: 1 FUTURE CONSULT TO PHYSICAL THERAPY [9032] Order #: [id number]: 1 FUTURE Prescriptions as of 11/01/2024 - [...] Status:Closed by BAILEE CHRISTENSEN on 11/01/24 Normal [facility] FEMALE PELVIS TRANSABD LT Don 07-01-2024 FEMALE [...] and stored in a permanent archive. MQ: [facility]_2021 COMPARISON: None RESULT: Uterus: LMP 10/23/2023 [...] be communicated with the ordering provider via Imaging[facility] staff message or phone message by [facility] Services within 2 business days of report finalization. --END OF FINDING-- Quality Liaison: KING Transcribe Date/Time: Jul 04 2024 10:10A Dictated by : STEPHANY VÁSQUEZ MD This examination was interpreted and the report reviewed and electronically signed by: STEPHANY VÁSQUEZ MD on Jul 04 2024 10:16AM EST [id number] ACTIONABLE Invalid Interpretation Code [facility] FEMALE PELVIS TRANSVAGon 07-01-2024 FEMALE PELVIS TRANSVAG [...] and stored in a permanent archive. MQ: [facility]_2021 COMPARISON: None RESULT: Uterus: LMP 10/23/2023 [...] be communicated with the ordering provider via [facility] staff message or phone message by [facility] within 2 business days of report finalization. --END OF FINDING-- Quality Liaison: KING Transcribe Date/Time: Jul 04 2024 10:10A Dictated by : STEPHANY VÁSQUEZ MD This examination was interpreted and the report reviewed and electronically signed by: STEPHANY VÁSQUEZ MD on Jul 04 2024 10:16AM EST [id number] ACTIONABLE Invalid Interpretation Code [facility] THINPREP TIS PAP W/REFL HPV mRNA E6/E7on 06-24-2024 CLINICAL INFORMATION: Normal [facility] Comment on above: Result Comment: None given Performed By: #### 9 0934 #### [facility] [address], [address] [place] [phone] Brake Machine Operator: Khanh Buckley MD COMMENT Normal [facility] Comment on above: Result Comment: EXPL ANATORY [...] information. Performed By: #### 9 0934 #### [facility] [address], [address] [place] [phone] Brake Machine Operator: Khanh Buckley MD DISABILITY AIDE: Normal [facility] Comment on above: Performed By: #### 9 0934 #### [facility] of [address], [address] [place] [address] Brake Machine Operator: Khanh Buckley MD INTERPRETATION/RESULT : Normal [facility] Comment on above: Result Comment: Unab le to provide interpretation, see adequacy statement. Performed By: #### 9 0934 #### [facility] of [address], [address] [place] [address] Brake Machine Operator: Khanh Buckley MD LMP: Normal [facility] Comment on above: Result Comment: None given Performed By: #### 9 0934 #### [facility] of [address], [address] [place] [address] Brake Machine Operator: Khanh Buckley MD PREV. BX: Normal [facility] Comment on above: Result Comment: None given Performed By: #### 9 0934 #### [facility] of [address], [address] [place] [address] Brake Machine Operator: Khanh Buckley MD PREV. PAP: Normal [facility] Comment on above: Result Comment: None given Performed By: #### 9 0934 #### [facility] of [address], [address] [place] [address] Brake Machine Operator: Khanh Buckley MD SOURCE: Normal [facility] Comment on above: Result Comment: None given Performed By: #### 9 0934 #### [facility] of [address], [address] [place] [address] Brake Machine Operator: Khanh Buckley MD STATEMENT OF ADEQUACY: Normal [facility] Comment on above: Result Comment: Test cancelled per client request. Performed By: #### 9 0934 #### [facility] of [address], [address] [place] [address] Brake Machine Operator: Khanh Buckley MD 25(OH)D3 [facility] 2023 25-hydroxyvitamin D3 [Mass/Vol] 34.3 ng/mL Normal 31.0-80.0 [facility] Comment on above: Order Comment: Speci men Type: BLOOD SPECIMENOrdering Facility: [facility] Address: [address] [place] [address] Performed By: #### 1 989-3 ####[facility] [id number] [address] [id number] [address] [place] 25-hydroxyvitamin D3 [Mass/V ol]on 06-21-2024 Interpretation and review of laboratory results Normal [facility] CNOVon 06-21-2024 CNOV Office Visit (INTMWS ) ROSALINDA RUSSO ([id number]) 1970 F Date Time Provider Department 06/21/24 [...] and few other issues She has a manager psychiatry in [place], sees him yearly. Her periods were very [...] bloating, easy satiety, abdominal pain, or other manager psychiatry symptoms She does have some hot flashes, [...] HISTORY Procedure Laterality Date SECTION HX 01/2013 [facility] CHOLECYSTECTOMY 2009 [facility] HERNIA REPAIR HX 11/2013 Dr Hurtado [facility] LAPAROSCOPY REPAIR INCISIONAL HERNIA REDUCIBLE 07/2013 [facility] FAMILY HISTORY Problem Relation Age of [...] in no (more content not included)... Normal [facility] FERRITINon 06-21-2024 Ferritin [Mass/Vol] 52.1 ng/mL 14.7 - 2 05.1 ng/mL [facility] Ferritin SerPl-mCncon 2023 Ferritin [Mass/Vol] 52.1 ng/mL Normal 14.7-205.1 [facility] Comment on above: Order Comment: Speci men Type: BLOOD SPECIMENOrdering Facility: [facility] Address: [address] [place] [address] Performed By: #### 2 276-4, 39553-6 ####[facility] [id number] [place] [address] [place] Ferritin [Mass/Vol]on 2023 Interpretation and review of laboratory results Normal [facility] HIV 1+2 Ab IA Qlon HIV 1 and 2 Ab IA.rapid Nom (S/P/Bld) [facility] Comment on above: Test not indicated. HIV 1+2 Ab+HIV1 p24 Ag IA Ql Non-Reactive Nonreactive [facility] HIV immunoassay testing algorithm interpretation (S/P/Bld) [Interp] [facility] Comment on above: No evidence of HIV-1 or HIV-2 infection. Should recent infection be suspected, repeat testing may be considered 2-3 weeks after this draw. [place] Rev. Code 3701.243(E): This information has been [...] release of HIV test results or diagnoses. [facility] HIV 1 and 2 Ab IA.rapid Nom (S/P/Bld) Normal [facility] Comment on above: Order Comment: Speci men Type: BLOOD SPECIMENOrdering Facility: [facility] Address: [address] [place] [address] Result Comment: Test not indicated. Performed By: #### 3 1201-7 ####[facility] [id number] [address] STATES OF [facility] HIV 1+2 Ab+HIV1 p24 Ag IA Ql Non-Reactive Normal Nonreactive [facility] Comment on above: Order Comment: Speci men Type: BLOOD SPECIMENOrdering Facility: [facility] Address: [address] [place] [address] Performed By: #### 3 1201-7 ####[facility] [id number] [place] [address] [place] HIV immunoassay testing algorithm interpretation (S/P/Bld) [Interp] Normal [facility] Comment on above: Order Comment: Speci men Type: BLOOD SPECIMENOrdering Facility: [facility] Address: [address] [place] [address] Result Comment: No e vidence of HIV-1 or HIV-2 infection. Should recent infection be suspected, repeat testing may be considered 2-3 weeks after this draw. [place] Rev. Code 3701.243(E): This information has been [...] or diagnoses. Performed By: #### 3 1201-7 ####[facility] [id number] [place] [address] [place] Iron and Iron binding capaci ty panelon 06-21-2024 Interpretation and review of laboratory results Normal [facility] Iron [Mass/Vol] 88 ug/dL 41 - 186 ug/dL [facility] Iron binding capacity [Mass/Vol] 334 ug/dL 232 - 386 ug/dL [facility] Iron/TIBC [Molar ratio] 26.3 % 15.0 - 57.0 % [facility] Iron [Mass/Vol] 88 ug/dL Normal 41-186 [facility] Comment on above: Order Comment: Speci men Type: BLOOD SPECIMENOrdering Facility: [facility] Address: [address] [place] [address] Performed By: #### 2 276-4, 88896-5 ####[facility] [id number] [address] [place] Iron binding capacity [Mass/Vol] 334 ug/dL Normal 232-386 [facility] Comment on above: Order Comment: Speci men Type: BLOOD SPECIMENOrdering Facility: [facility] Address: [address] [place] [address] Performed By: #### 2 276-4, 38124-1 ####[facility] [id number] [address] [address] [place] Iron/TIBC [Molar ratio] 26.3 % Normal 15.0-57.0 [facility] Comment on above: Order Comment: Speci men Type: BLOOD SPECIMENOrdering Facility: [facility] Address: [address] [place] [address] Performed By: #### 2 276-4, 56483-8 ####[facility] [id number] LATONYABoni [facility] [id number] [address] [place] VITAMIN D 25 HYDROXYon 06-21 25-hydroxyvitamin D3 [Mass/Vol] 34.3 ng/mL 31.0 - 80.0 ng/mL [facility] XR SCOLIOSIS 2V PA STAND/LAT on [...] Moderate to severe degenerative changes, as described. Quality Liaison: PSCB Transcribe Date/Time: Jun 26 2024 2:25P Dictated by : SUSANNE KURTZ MD This examination was interpreted and the report reviewed and electronically signed by: SUSANNE KURTZ MD on Jun 26 2024 2:27PM EST [id number] Normal [facility] ESTRADIOLon 06-19-2024 ESTRADIOL 97 pg/mL Normal [facility] Comment on above: Result Comment: Refe rence Range Follicular Phase: 19-144 Mid-Cycle: 64-357 Luteal Phase: 56-214 Postmenopausal: < or = 31 Reference range established on post-pubertal patient population. No pre-pubertal reference range established using this assay. For any patients for whom low Estradiol levels are anticipated (e.g. males, pre-pubertal children and hypogonadal/post-menopausal females), the GLO Estradiol, Ultrasensitive, LCMSMS assay is recommended (order code 66400). Please note: patients being treated with the drug fulvestrant (Faslodex(R)) have demonstrated significant interference in immunoassay methods for estradiol measurement. The cross reactivity could lead to falsely elevated estradiol test results leading to an inappropriate clinical assessment of estrogen status. [facility] order code [id number], Ultrasensitive LC/MS/MS demonstrates negligible cross reactivity with fulvestrant. Performed By: #### 4 021, 470 #### [facility] [address], [address] [place] [address] Brake Machine Operator: Khanh Buckley MD Estradiolon 06-19-2024 E2 [Mass/Vol] 97 pg/mL [facility] Comment on above: Reference Range Follicular Phase: 19-144 Mid-Cycle: 64-357 Luteal Phase: 56-214 Postmenopausal: < or = 31 Reference range established on post-pubertal patient population. No pre-pubertal reference range established using this assay. For any patients for whom low Estradiol levels are anticipated (e.g. males, pre-pubertal children and hypogonadal/post-menopausal females), the GLO Estradiol, Ultrasensitive, LCMSMS assay is recommended (order code 86434). Please note: patients being treated with the drug fulvestrant (Faslodex(R)) have demonstrated significant interference in immunoassay methods for estradiol measurement. The cross reactivity could lead to falsely elevated estradiol test results leading to an inappropriate clinical assessment of estrogen status. [facility] order code [id number], Ultrasensitive LC/MS/MS demonstrates negligible cross reactivity with fulvestrant. FSHon 06-19-2024 FSH 19.7 mIU/mL Normal [facility] Comment on above: Result Comment: Refe rence Range Follicular Phase 2.5-10.2 Mid-cycle Peak 3.1-17.7 Luteal Phase 1.5- 9.1 Postmenopausal 23.0-116.3 Performed By: #### 4 021, 470 #### [facility] [place] [address] [address] , [address] [place] [address] Brake Machine Operator: Khanh Buckley MD Follicle stimulating hormone on 06-19-2024 Follitropin Qn 19.7 m[IU]/mL mIU/mL [facility] Comment on above: Reference Range Follicular Phase 2.5-10.2 Mid-cycle Peak 3.1-17.7 Luteal Phase 1.5- 9.1 Postmenopausal 23.0-116.3 No Panel Informationon 06-19 Performing Organization Information Site ID: QPT Name: [facility] Address: [facility] [address] , [address] [place] [phone] Director: Khanh Buckley MD [facility] CNPNon 06-10-2024 CNPN Telephone (RUTH) ROSALINDA RUSSO ([id number]) 1970 F Date Time Provider Department 06/10/24 [...] Encounter Status:Closed by MARGARITA TERRY on 06/10/24 [facility] (SP) Office (RUTH) ROSALINDA RUSSO ([id number]) 1970 F Date Time Provider Department 06/09/24 [...] HISTORY Procedure Laterality Date SECTION HX 01/2013 [facility] CHOLECYSTECTOMY 2009 [facility] HERNIA REPAIR HX 11/2013 Dr Hurtado [facility] LAPAROSCOPY REPAIR INCISIONAL HERNIA REDUCIBLE 07/2013 [facility] FAMILY HISTORY Problem Relation Age of [...] which included preparing to see the patient, [id number] patient care, completing clinical documentation, obtaining and/or reviewing separately obtained history, counseling and educating the patient/family/caregiv er, ordering medications, tests, or procedures, communicating with other HCPs (not separately reported), independently interpreting results (not separately reported), communicating results to the patient/family/caregiv er, and care coordination (not separately reported). Electronically Signed: Prince Uribe MD June 09, 2024 Referring Provider: PRINCE URIBE [[id number]] Allergies As of Date: 06/09/2024 (No Known Allergies) Date Reviewed: 06/09/2024 Reviewed by: Joshua Quinn MA - Fully Assessed Reason for Visit: Established Patient [175] Primary Visit Diagnosis:CML (chronic myeloid leukemia) (HCC) [C92.10] Order(s):COMPREHENSIVE METABOLIC PANEL [SQCMP] Order #: [id number] FUTURE Follow-up and Disposition History for Encounter Date Provider Department Center 06/09/2024 [id number], DREW HEMAWS Johnathon Mill Prescriptions as of 06/09/2024 - Azelaic Acid (FINACEA) 15 % gel Apply 1 application to aff (more content not included)... Normal [facility] metabolic 2000 panelOrdered By: Genevieve West on 06-09-2024 Albumin [Mass/Vol] 4.5 g/dL 3.9 - 4.9 g/dL [facility] ALP [Catalytic activity/Vol] 57 U/L 34 - 123 U/L [facility] ALT [Catalytic activity/Vol] 16 U/L 7 - 38 U/L [facility] Anion gap [Moles/Vol] 13 mmol/L 8 - 15 mmol/L [facility] AST [Catalytic activity/Vol] 18 U/L 13 - 35 U/L [facility] Bilirubin [Mass/Vol] 0.4 mg/dL 0.2 - 1 .3 mg/dL [facility] Calcium [Mass/Vol] 9.3 mg/dL 8.5 - 10. 2 mg/dL [facility] Chloride [Moles/Vol] 103 mmol/L 98 - 10 7 mmol/L [facility] CO2 [Moles/Vol] 25 mmol/L 22 - 30 mmol/L [facility] Creatinine [Mass/Vol] 0.93 mg/dL 0.58 - 0.96 mg/dL [facility] GFR/1.73 sq M.predicted among non-blacks MDRD (S/P/Bld) [Vol rate/Area] 74 mL/min/{1.73_m2} - PINF [facility] Comment on above: Estimated Glomerular Filtration [...] [Mass/Vol] 84 mg/dL 74 - 99 mg/dL [facility] Comment on above: The [place] Diabete s Association (ADA) provides guidance for [...] Standards of Medical Care in Diabetes 2016, [place] Diabetes Association. Diabetes Care. 2016.39(Suppl 1). Interpretation and review of laboratory results Normal [facility] Potassium [Moles/Vol] 4.0 mmol/L 3.7 - 5.1 mmol/L [facility] Protein [Mass/Vol] 6.9 g/dL 6.3 - 8.0 g/dL [facility] Sodium [Moles/Vol] 141 mmol/L 136 - 144 mmol/L [facility] Urea nitrogen [Mass/Vol] 14 mg/dL 7 - 21 mg/dL [facility] Comprehensive metabolic 2000 panelon 06-09-2024 Albumin [Mass/Vol] 4.5 g/dL Normal 3.9-4.9 [facility] Comment on above: Order Comment: Speci men Type: BLOOD SPECIMENOrdering Facility: [facility] Address: [address] [place] [address] Performed By: #### 2 4323-8 ####[facility] [id number] [place] [address] [place] ALP [Catalytic activity/Vol] 57 U/L Normal 34-123 [facility] Comment on above: Order Comment: Speci men Type: BLOOD SPECIMENOrdering Facility: [facility] Address: [address] [place] [address] Performed By: #### 2 4323-8 ####[facility] [id number] [place] [address] [place] ALT [Catalytic activity/Vol] 16 U/L Normal 7-38 [facility] Comment on above: Order Comment: Speci men Type: BLOOD SPECIMENOrdering Facility: [facility] Address: [address] [place] [address] Performed By: #### 2 4323-8 ####[facility] [id number] [place] [address] [place] Anion gap [Moles/Vol] 13 mmol/L Normal 8-15 [facility] Comment on above: Order Comment: Speci men Type: BLOOD SPECIMENOrdering Facility: [facility] Address: [address] [place] [address] Performed By: #### 2 4323-8 ####[facility]OWN[facility] [id number] [place] [address] [place] AST [Catalytic activity/Vol] 18 U/L Normal 13-35 [facility] Comment on above: Order Comment: Speci men Type: BLOOD SPECIMENOrdering Facility: [facility] Address: [address] [place] [address] Performed By: #### 2 4323-8 ####[facility]OWNCL[facility] [id number] [place] [address] [place] Bilirubin [Mass/Vol] 0.4 mg/dL Normal 0.2-1.3 [facility] Comment on above: Order Comment: Speci men Type: BLOOD SPECIMENOrdering Facility: [facility] Address: [address] [place] [address] Performed By: #### 2 4323-8 ####[facility] [id number] [place] [address] [place] Calcium [Mass/Vol] 9.3 mg/dL Normal 8.5-10.2 [facility] Comment on above: Order Comment: Speci men Type: BLOOD SPECIMENOrdering Facility: [facility] Address: [address] [place] [address] Performed By: #### 2 4323-8 ####[facility] [id number] [place] [address] [place] Chloride [Moles/Vol] 103 mmol/L Normal 98-107 [facility] Comment on above: Order Comment: Speci men Type: BLOOD SPECIMENOrdering Facility: [facility] Address: [address] [place] [address] Performed By: #### 2 4323-8 ####[facility] [id number] [place] [address] [place] CO2 [Moles/Vol] 25 mmol/L Normal 22-30 [facility] Comment on above: Order Comment: Speci men Type: BLOOD SPECIMENOrdering Facility: [facility] Address: [address] [place] [address] Performed By: #### 2 4323-8 ####[facility] [id number] [place] [address] [place] Creatinine [Mass/Vol] 0.93 mg/dL Normal 0.58-0.96 [facility] Comment on above: Order Comment: Speci men Type: BLOOD SPECIMENOrdering Facility: [facility] Address: [address] [place] [address] Performed By: #### 2 4323-8 ####[facility] [id number] [place] [address] [place] Creatinine and Glomerular filtration rate.predicted panel (S/P/Bld) 74 mL/min/1.73m??? Normal >=60 [facility] Comment on above: Order Comment: Speci men Type: BLOOD SPECIMENOrdering Facility: [facility] Address: [address] [place] [address] Result Comment: Angie mated Glomerular Filtration Rate [...] actual GFR. Performed By: #### 2 4323-8 ####[facility] [id number] [place] [address] [place] Glucose [Mass/Vol] 84 mg/dL Normal 74-99 [facility] Comment on above: Order Comment: Speci men Type: BLOOD SPECIMENOrdering Facility: [facility] Address: [address] [place] [address] Result Comment: The [place] Diabetes Association (ADA) provides guidance for cutoff [...] Standards of Medical Care in Diabetes 2016, [place] [employer]. Diabetes Care. 2016.39(Suppl 1). Performed By: #### 2 4323-8 ####[facility] CITYAL[facility] [id number] [place] [address] [place] Potassium [Moles/Vol] 4.0 mmol/L Normal 3.7-5.1 [facility] Comment on above: Order Comment: Speci men Type: BLOOD SPECIMENOrdering Facility: [facility] Address: [address] [place] [address] Performed By: #### 2 4323-8 ####[facility] HOSPITALAna [id number] [place] [address] [place] Protein [Mass/Vol] 6.9 g/dL Normal 6.3-8.0 [facility] Comment on above: Order Comment: Speci men Type: BLOOD SPECIMENOrdering Facility: [facility] Address: [address] [id number] Performed By: #### 2 4323-8 ####[facility]ITALNIMO [id number] [place] [address] [place] Sodium [Moles/Vol] 141 mmol/L Normal 136-144 [facility] Comment on above: Order Comment: Speci men Type: BLOOD SPECIMENOrdering Facility: [facility] Address: [address] [id number] Performed By: #### 2 4323-8 ####[facility]OSPITALWNCLIA [id number] [place] [address] [place] Urea nitrogen [Mass/Vol] 14 mg/dL Normal 7-21 [facility] Comment on above: Order Comment: Speci men Type: BLOOD SPECIMENOrdering Facility: [facility] Address: [address] [place] [address] Performed By: #### 2 4323-8 ####[facility] CITYNCLIA [id number] [place] [address] [place] BCR/ABL1 P210 %IS PANELon BCR/ABL1 P210 %IS 0.502 Normal [facility] Comment on above: Order Comment: Speci men Type: BLOOD SPECIMENOrdering Facility: [facility] Address: [address] [place] [address] Performed By: #### P 210P ####[facility] LIMSCLIA [id number] [place] [address] [place]#### 210ISBP ####[facility] LABCLIA [id number] [place] [address] [place] BCR/ABL1 P210 MR 2.3 Normal [facility] Comment on above: Order Comment: Speci men Type: BLOOD SPECIMENOrdering Facility: [facility] Address: [address] [place] [address] Performed By: #### P 210P ####[facility] LIMSCLIA [id number] [place] [address] [place]#### 210ISBP ####[facility] LABCLIA [id number] [place] [address] [place] BCR/ABL1 P210 QUANTITATIVE P CR BLOODon 06-01-2024 BCR/ABL1 P210 INTERPRETATION Normal [facility] Comment on above: Order Comment: Speci men Type: BLOOD SPECIMENOrdering Facility: [facility] Address: [address] [place] [address] Result Comment: BCR/ ABL1 p210 Quantitative PCR Laboratory Accession Number: [id number] Result: DETECTED MR: 2.3 %IS: 0.502 Interpretation: p210 BCR/ABL1 transcripts were detected. Quantitative results are expressed on the International Scale (IS) and a log molecular response (MR) is calculated. On this scale, a value of less than or equal to 0.1% corresponds to a major molecular response (MMR or MR3.0). Methodology: The [employer] QuantideX BCR/ABL IS assay is an FDA-cleared [...] By: #### P 210P ####[facility] LIMSCLIA [id number] [place] [address] [place]#### 210ISBP ####[facility] LABCL[facility] [id number] [place] [address] [place] CBC W Auto Differential pane l (Bld)on 06-01-2024 Basophils (Bld) [#/Vol] 0.06 10*3/uL Normal <0.11 [facility] Comment on above: Order Comment: Ryan rangel Type: BLOOD SPECIMENOrdering Facility: [facility] Address: [address] [place] [address] Performed By: #### 5 7021-8 ####[facility] [id number] [place] [address] [place] Basophils/100 WBC (Bld) 0.9 % Normal [facility] Comment on above: Order Comment: Speci men Type: BLOOD SPECIMENOrdering Facility: [facility] Address: [address] [place] [address] Performed By: #### 5 7021-8 ####[facility] CITYDEVLIA [id number] [place] [address] [place] Differential cell count method Nom (Bld) Auto Normal [facility] Comment on above: Order Comment: Speci men Type: BLOOD SPECIMENOrdering Facility: [facility] Address: [address] [place] [address] Performed By: #### 5 7021-8 ####[facility] HOSPITALWDEVLIA [id number] [place] [address] [place] Eosinophils (Bld) [#/Vol] 0.23 10*3/uL Normal <0.46 [facility] Comment on above: Order Comment: Speci men Type: BLOOD SPECIMENOrdering Facility: [facility] Address: [address] [place] [address] Performed By: #### 5 7021-8 ####[facility] HOSPITALA [id number] [place] [address] [place] Eosinophils/100 WBC (Bld) 3.6 % Normal [facility] Comment on above: Order Comment: Speci men Type: BLOOD SPECIMENOrdering Facility: [facility] Address: [address] [place] [address] Performed By: #### 5 7021-8 ####[facility] CITYNCA [id number] [place] [address] [place] Erythrocyte distribution width (RBC) [Ratio] 13.1 % Normal 11.5-15.0 [facility] Comment on above: Order Comment: Speci men Type: BLOOD SPECIMENOrdering Facility: [facility] Address: [address] [place] [address] Performed By: #### 5 7021-8 ####[facility] JOLENEWNCLIA [id number] [place] [address] [place] Hematocrit (Bld) [Volume fraction] 39.5 % Normal 36.0-46.0 [facility] Comment on above: Order Comment: Speci men Type: BLOOD SPECIMENOrdering Facility: [facility] Address: [address] [place] [address] Performed By: #### 5 7021-8 ####[facility]OSPITALLIA [id number] [place] [address] [place] Hemoglobin (Bld) [Mass/Vol] 13.6 g/dL Normal 11.5-15.5 [facility] Comment on above: Order Comment: Speci men Type: BLOOD SPECIMENOrdering Facility: [facility] Address: [address] [place] [address] Performed By: #### 5 7021-8 ####[facility] HOSPITALA [id number] [place] [address] [place] Immature granulocytes (Bld) [#/Vol] 10*3/uL Normal <0.10 [facility] Comment on above: Order Comment: Speci men Type: BLOOD SPECIMENOrdering Facility: [facility] Address: [address] [place] [address] Performed By: #### 5 7021-8 ####[facility]ITALLIA [id number] [place] [address] [place] Immature granulocytes/100 WBC (Bld) 0.3 % Normal [facility] Comment on above: Order Comment: Speci men Type: BLOOD SPECIMENOrdering Facility: [facility] Address: [address] [place] [address] Performed By: #### 5 7021-8 ####[facility]PITALLIA [id number] [place] [address] [place] Lymphocytes (Bld) [#/Vol] 1.71 10*3/uL Normal 1.00-4.00 [facility] Comment on above: Order Comment: Speci men Type: BLOOD SPECIMENOrdering Facility: [facility] Address: [address] [place] [address] Performed By: #### 5 7021-8 ####[facility] HOSPITALA [id number] [place] [address] [place] Lymphocytes/100 WBC (Bld) 26.9 % Normal [facility] Comment on above: Order Comment: Speci men Type: BLOOD SPECIMENOrdering Facility: [facility] Address: [address] [place] [address] Performed By: #### 5 7021-8 ####[facility] [id number] [place] [address] [place] MCH (RBC) [Entitic mass] 32.2 pg Normal 26.0-34.0 [facility] Comment on above: Order Comment: Speci men Type: BLOOD SPECIMENOrdering Facility: [facility] Address: [address] [place] [address] Performed By: #### 5 7021-8 ####[facility] CITYNCLI [id number] [place] [address] [place] MCHC (RBC) [Mass/Vol] 34.4 g/dL Normal 30.5-36.0 [facility] Comment on above: Order Comment: Speci men Type: BLOOD SPECIMENOrdering Facility: [facility] Address: [address] [place] [address] Performed By: #### 5 7021-8 ####[facility] CITYNCLI [id number] [place] [address] [place] MCV (RBC) [Entitic vol] 93.4 fL Normal 80.0-100.0 [facility] Comment on above: Order Comment: Speci men Type: BLOOD SPECIMENOrdering Facility: [facility] Address: [address] [place] [address] Performed By: #### 5 7021-8 ####[facility] JOLENENOEL [id number] [place] [address] [place] Monocytes (Bld) [#/Vol] 0.46 10*3/uL Normal <0.87 [facility] Comment on above: Order Comment: Speci men Type: BLOOD SPECIMENOrdering Facility: [facility] Address: [address] [place] [address] Performed By: #### 5 7021-8 ####[facility]DEV[facility] [id number] [place] [address] [place] Monocytes/100 WBC (Bld) 7.2 % Normal [facility] Comment on above: Order Comment: Speci men Type: BLOOD SPECIMENOrdering Facility: [facility] Address: [address] [place] [address] Performed By: #### 5 7021-8 ####[facility] [id number] [place] [address] [place] Neutrophils (Bld) [#/Vol] 3.88 10*3/uL Normal 1.45-7.50 [facility] Comment on above: Order Comment: Speci men Type: BLOOD SPECIMENOrdering Facility: [facility] Address: [address] [place] [address] Performed By: #### 5 7021-8 ####[facility] CITYNCA [id number] [place] [address] [place] Neutrophils/100 WBC (Bld) 61.1 % Normal [facility] Comment on above: Order Comment: Speci men Type: BLOOD SPECIMENOrdering Facility: [facility] Address: [address] [place] [address] Performed By: #### 5 7021-8 ####[facility] CITYNCLIA [id number] [place] [address] [place] Nucleated RBC (Bld) [#/Vol] 10*3/uL Normal <0.01 [facility] Comment on above: Order Comment: Speci men Type: BLOOD SPECIMENOrdering Facility: [facility] Address: [address] [place] [address] Performed By: #### 5 7021-8 ####[facility] [id number] [place] [address] [place] Nucleated RBC/100 WBC (Bld) [Ratio] 0.0 /100 WBC Normal [facility] Comment on above: Order Comment: Speci men Type: BLOOD SPECIMENOrdering Facility: [facility] Address: [address] [place] [address] Performed By: #### 5 7021-8 ####[facility] [id number] [place] [address] [place] Platelet mean volume (Bld) [Entitic vol] 9.8 fL Normal 9.0-12.7 [facility] Comment on above: Order Comment: Speci men Type: BLOOD SPECIMENOrdering Facility: [facility] Address: [address] [place] [address] Performed By: #### 5 7021-8 ####[facility] HOSPITALLI [id number] [place] [address] [place] Platelets (Bld) [#/Vol] 203 10*3/uL Normal 150-400 [facility] Comment on above: Order Comment: Speci men Type: BLOOD SPECIMENOrdering Facility: [facility] Address: [address] [place] [address] Performed By: #### 5 7021-8 ####[facility] [id number] [place] [address] [place] RBC (Bld) [#/Vol] 4.23 10*6/uL Normal 3.90-5.20 [facility] Comment on above: Order Comment: Speci men Type: BLOOD SPECIMENOrdering Facility: [facility] Address: [address] [place] [address] Performed By: #### 5 7021-8 ####[facility] CITYNCSARAHA [id number] [place] [address] [place] WBC (Bld) [#/Vol] 6.36 10*3/uL Normal 3.70-11.00 [facility] Comment on above: Order Comment: Speci men Type: BLOOD SPECIMENOrdering Facility: [facility] Address: [address] [place] [address] Performed By: #### 5 7021-8 ####[facility] CITYNCSARAHA [id number] [address] [place] Lolita 04-22-2024 HALIMAN Telephone (INTRufinaWS) ROSALINDA RUSSO ([id number]) 1970 F Date Time Provider Department 04/22/24 [...] Status:Closed by LEESA GANN on 04/22/24 Normal [facility] Basic metabolic 2000 panelon 04-21-2024 Anion gap [Moles/Vol] 12 mmol/L Normal 8-15 [facility] Comment on above: Order Comment: Speci men Type: BLOOD SPECIMENOrdering Facility: [facility] Address: [address] [place] [address] [place] [address] Performed By: #### 2 4321-2 ####[facility] MILLTOWNCLIA [id number] [place] [address] [place] Calcium [Mass/Vol] 9.7 mg/dL Normal 8.5-10.2 [facility] Comment on above: Order Comment: Speci men Type: BLOOD SPECIMENOrdering Facility: [facility] Address: [address] [place] [address] Performed By: #### 2 4321-2 ####[facility] MILLTOWNCLIA [id number] [place] [address] [place] Chloride [Moles/Vol] 99 mmol/L Normal 98-107 [facility] Comment on above: Order Comment: Speci men Type: BLOOD SPECIMENOrdering Facility: [facility] Address: [address] [place] [address] Performed By: #### 2 4321-2 ####[facility]ITALL[facility] [id number] [place] [address] [place] CO2 [Moles/Vol] 24 mmol/L Normal 22-30 [facility] Comment on above: Order Comment: Speci men Type: BLOOD SPECIMENOrdering Facility: [facility] Address: [address] [place] [address] Performed By: #### 2 4321-2 ####[facility] MILLWTXLIA [id number] [place] [address] [place] Creatinine [Mass/Vol] 0.87 mg/dL Normal 0.58-0.96 [facility] Comment on above: Order Comment: Speci men Type: BLOOD SPECIMENOrdering Facility: [facility] Address: [address] [place] [address] Performed By: #### 2 4321-2 ####[facility] CITYNCLIA [id number] [place] [address] [place] Creatinine and Glomerular filtration rate.predicted panel (S/P/Bld) 80 mL/min/1.73m??? Normal >=60 [facility] Comment on above: Order Comment: Ryan rangel Type: BLOOD SPECIMENOrdering Facility: [facility] Address: [address] [place] [address] Result Comment: Angie mated Glomerular Filtration Rate [...] actual GFR. Performed By: #### 2 4321-2 ####[facility] [id number] [place] [address] [place] Glucose [Mass/Vol] 95 mg/dL Normal 74-99 [facility] Comment on above: Order Comment: Ryan rangel Type: BLOOD SPECIMENOrdering Facility: [facility] Address: [address] [place] [address] Result Comment: The [place] [employer] (ADA) provides guidance for cutoff [...] Standards of Medical Care in Diabetes 2016, [place] [employer]. Diabetes Care. 2016.39(Suppl 1). Performed By: #### 2 4321-2 ####[facility] [id number] [place] [address] [place] Potassium [Moles/Vol] 4.1 mmol/L Normal 3.7-5.1 [facility] Comment on above: Order Comment: Speci men Type: BLOOD SPECIMENOrdering Facility: [facility] Address: [address] [place] [address] Performed By: #### 2 4321-2 ####[facility] CITYNCNIMO [id number] [place] [address] [place] Sodium [Moles/Vol] 135 mmol/L Low 136-144 [facility] Comment on above: Order Comment: Speci men Type: BLOOD SPECIMENOrdering Facility: [facility] Address: [address] [place] [address] Performed By: #### 2 4321-2 ####[facility] [id number] [place] [address] [place] Urea nitrogen [Mass/Vol] 14 mg/dL Normal 7-21 [facility] Comment on above: Order Comment: Speci men Type: BLOOD SPECIMENOrdering Facility: [facility] Address: [address] [place] [address] Performed By: #### 2 4321-2 ####[facility] CITYNCLIA [id number] [place] [address] [place] CBC W Auto Differential pane l (Bld)on 04-21-2024 Basophils (Bld) [#/Vol] 0.07 10*3/uL Normal <0.11 [facility] Comment on above: Order Comment: Speci men Type: BLOOD SPECIMEN Ordering Facility: [facility] Address: [address] [place] [address] Performed By: #### 5 7021-8 #### [facility] CLIA [id number] [address] [place] [address] [place] Basophils/100 WBC (Bld) 1.1 % Normal [facility] Comment on above: Order Comment: Speci men Type: BLOOD SPECIMEN Ordering Facility: [facility] Address: [address] [place] [address] Performed By: #### 5 7021-8 #### [facility] CLIA [id number] [address] [place] [address] [place] Differential cell count method Nom (Bld) Auto Normal [facility] Comment on above: Order Comment: Speci men Type: BLOOD SPECIMEN Ordering Facility: [facility] Address: [address] [place] [address] Performed By: #### 5 7021-8 #### [facility] CLIA [id number] [address] [place] [address] [place] Eosinophils (Bld) [#/Vol] 0.19 10*3/uL Normal <0.46 [facility] Comment on above: Order Comment: Speci men Type: BLOOD SPECIMEN Ordering Facility: [facility] Address: [address] [place] [address] Performed By: #### 5 7021-8 #### [facility] CLIA [id number] [address] [place] [address] [place] Eosinophils/100 WBC (Bld) 3.0 % Normal [facility] Comment on above: Order Comment: Speci men Type: BLOOD SPECIMEN Ordering Facility: [facility] Address: [address] [place] [address] Performed By: #### 5 7021-8 #### [facility] CLIA [id number] [address] [place] [address] [place] Erythrocyte distribution width (RBC) [Ratio] 12.9 % Normal 11.5-15.0 [facility] Comment on above: Order Comment: Speci men Type: BLOOD SPECIMEN Ordering Facility: [facility] Address: [address] [place] [address] Performed By: #### 5 7021-8 #### [facility] CLIA [id number] [address] [place] [address] [place] Hematocrit (Bld) [Volume fraction] 38.9 % Normal 36.0-46.0 [facility] Comment on above: Order Comment: Speci men Type: BLOOD SPECIMEN Ordering Facility: [facility] Address: [address] [place] [address] Performed By: #### 5 7021-8 #### [facility] CLIA [id number] [address] [place] [address] [place] Hemoglobin (Bld) [Mass/Vol] 13.5 g/dL Normal 11.5-15.5 [facility] Comment on above: Order Comment: Speci men Type: BLOOD SPECIMEN Ordering Facility: [facility] Address: [address] [place] [address] Performed By: #### 5 7021-8 #### [facility] CLIA [id number] [address] [place] [address] [place] Immature granulocytes (Bld) [#/Vol] 10*3/uL Normal <0.10 [facility] Comment on above: Order Comment: Speci men Type: BLOOD SPECIMEN Ordering Facility: [facility] Address: [address] [place] [address] Performed By: #### 5 7021-8 #### [facility] CLIA [id number] [address] [place] [address] [place] Immature granulocytes/100 WBC (Bld) 0.2 % Normal [facility] Comment on above: Order Comment: Speci men Type: BLOOD SPECIMEN Ordering Facility: [facility] Address: [address] [place] [address] Performed By: #### 5 7021-8 #### [facility] CLIA [id number] [address] [place] [address] [place] Lymphocytes (Bld) [#/Vol] 1.46 10*3/uL Normal 1.00-4.00 [facility] Comment on above: Order Comment: Speci men Type: BLOOD SPECIMEN Ordering Facility: [facility] Address: [address] [place] [address] Performed By: #### 5 7021-8 #### [facility] CLIA [id number] [address] [place] [address] [place] Lymphocytes/100 WBC (Bld) 22.8 % Normal [facility] Comment on above: Order Comment: Speci men Type: BLOOD SPECIMEN Ordering Facility: [facility] Address: [address] [place] [address] Performed By: #### 5 7021-8 #### [facility] CLIA [id number] [address] [place] [address] [place] MCH (RBC) [Entitic mass] 32.3 pg Normal 26.0-34.0 [facility] Comment on above: Order Comment: Speci men Type: BLOOD SPECIMEN Ordering Facility: [facility] Address: [address] [place] [address] Performed By: #### 5 7021-8 #### [facility] CLIA [id number] [address] [place] [address] [place] MCHC (RBC) [Mass/Vol] 34.7 g/dL Normal 30.5-36.0 [facility] Comment on above: Order Comment: Speci men Type: BLOOD SPECIMEN Ordering Facility: [facility] Address: [address] [place] [id number] Performed By: #### 5 7021-8 #### [facility] [facility] CLIA [id number] [address] [place] [address] [place] MCV (RBC) [Entitic vol] 93.1 fL Normal 80.0-100.0 [facility] Comment on above: Order Comment: Speci men Type: BLOOD SPECIMEN Ordering Facility: [facility] Address: [address] [place] [address] Performed By: #### 5 7021-8 #### [facility] CLIA [id number] [address] [place] [address] [place] Monocytes (Bld) [#/Vol] 0.62 10*3/uL Normal <0.87 [facility] Comment on above: Order Comment: Speci men Type: BLOOD SPECIMEN Ordering Facility: [facility] Address: [address] [place] [address] Performed By: #### 5 7021-8 #### [facility] CLIA [id number] [address] [place] [address] [place] Monocytes/100 WBC (Bld) 9.7 % Normal [facility] Comment on above: Order Comment: Speci men Type: BLOOD SPECIMEN Ordering Facility: [facility] Address: [address] [place] [address] Performed By: #### 5 7021-8 #### [facility] CLIA [id number] [address] [place] [address] [place] Neutrophils (Bld) [#/Vol] 4.05 10*3/uL Normal 1.45-7.50 [facility] Comment on above: Order Comment: Speci men Type: BLOOD SPECIMEN Ordering Facility: [facility] Address: [address] [place] [address] Performed By: #### 5 7021-8 #### [facility] CLIA [id number] [address] [place] [address] [place] Neutrophils/100 WBC (Bld) 63.2 % Normal [facility] Comment on above: Order Comment: Speci men Type: BLOOD SPECIMEN Ordering Facility: [facility] Address: [address] [place] [address] Performed By: #### 5 7021-8 #### [facility] CLIA [id number] [address] [place] [address] [place] Nucleated RBC (Bld) [#/Vol] 10*3/uL Normal <0.01 [facility] Comment on above: Order Comment: Speci men Type: BLOOD SPECIMEN Ordering Facility: [facility] Address: [address] [place] [address] Performed By: #### 5 7021-8 #### [facility] CLIA [id number] [address] [place] [address] [place] Nucleated RBC/100 WBC (Bld) [Ratio] 0.0 /100 WBC Normal [facility] Comment on above: Order Comment: Speci men Type: BLOOD SPECIMEN Ordering Facility: [facility] Address: [address] [place], [place] [address] Performed By: #### 5 7021-8 #### [facility] CLIA [id number] [address] [place] [address] [place] Platelet mean volume (Bld) [Entitic vol] 10.0 fL Normal 9.0-12.7 [facility] Comment on above: Order Comment: Speci men Type: BLOOD SPECIMEN Ordering Facility: [facility] Address: [address] [place], [place] [address] Performed By: #### 5 7021-8 #### [facility] CLIA [id number] [address] [place] [address] [place] Platelets (Bld) [#/Vol] 167 10*3/uL Normal 150-400 [facility] Comment on above: Order Comment: Speci men Type: BLOOD SPECIMEN Ordering Facility: [facility] Address: [address] [place] [address] Performed By: #### 5 7021-8 #### [facility] CLIA [id number] [address] [place] [address] [place] RBC (Bld) [#/Vol] 4.18 10*6/uL Normal 3.90-5.20 [facility] Comment on above: Order Comment: Speci men Type: BLOOD SPECIMEN Ordering Facility: [facility] Address: [address] [place] [address] Performed By: #### 5 7021-8 #### [facility] CLIA [id number] [address] [place] [address] [place] WBC (Bld) [#/Vol] 6.40 10*3/uL Normal 3.70-11.00 [facility] Comment on above: Order Comment: Speci men Type: BLOOD SPECIMEN Ordering Facility: [facility] Address: [address] [place] [address] Performed By: #### 5 7021-8 #### [facility] CLIA [id number] [address] [place] [address] [place] HCG Preg Ur Qlon 04-21-2024 HCG ( test) Ql (U) Negative Normal Negative [facility] Comment on above: Order Comment: Speci men Type: URINE SPECIMENOrdering Facility: [facility] Address: [address] [place] [address] Result Comment: This test is intended to aid in the early detection of . Very dilute urine samples, as indicated by a low specific gravity, may not contain order entry representative levels of hCG. This test detects [...] for . Performed By: #### 2 106-3 ####[facility] [id number] [facility] [id number] [id number] [place] T3Free SerPl-mCncon 04-21-20 24 Free T3 [Mass/Vol] 2.2 pg/mL Low 2.3-4.1 [facility] Comment on above: Order Comment: Speci men Type: BLOOD SPECIMENOrdering Facility: [facility] Address: [address] [place] [address] Performed By: #### 3 051-0, 3016-3, 3024-7 ####[facility] [id number] [place] [address] [place] T4 Free SerPl-mCncon 024 Free T4 [Mass/Vol] 1.4 ng/dL Normal 0.9-1.7 [facility] Comment on above: Order Comment: Speci men Type: BLOOD SPECIMENOrdering Facility: [facility] Address: [address] [place] [address] Performed By: #### 3 051-0, 3016-3, 3024-7 ####[facility] [id number] [place] [address] [place] TSH SerPl-aCncon 04-21-2024 TSH Qn 2.130 m[IU]/L Normal 0.270-4.200 [facility] Comment on above: Order Comment: Speci men Type: BLOOD SPECIMENOrdering Facility: [facility] Address: [address] [place] [address] Performed By: #### 3 051-0, 3016-3, 3024-7 ####[facility] [id number] [address] [place] CNOVon 04-20-2024 CNOV Office Visit (INTMWS ) ROSALINDA RUSSO ([id number]) 1970 F Date Time Provider Department 04/20/24 11:20 AM JUDITH HOWELL INTELIZ During your visit today, we recorded the following information about you: Pulse Respiration Blood pressure Weight 84/minute 16/minute 118/72 72.8 kg Judith Howell APRN.CNP 04/20/2024 11:48 AM Signed CC: Patient presents with: Menstrual Problem: Irregular spotting, no regular periods for months [facility] Rosalinda Russo is a 54 year [...] visit and vaginal exam. Current provider in [place] so may want to see a local provider. Does have history of hypothyroidism: Taking medication as ordered. Denies any abnormal change in weight or energy. REVIEW OF SYSTEMS See [facility] PAST MEDICAL HISTORY 09/03/2017: Benign hypertension No date: Hypothyroid No date: Rosacea PAST SURGICAL HISTORY 01/2013: SECTION HX Comment: [facility] 2009: CHOLECYSTECTOMY Comment: [facility] 11/2013: HERNIA REPAIR HX Comment: Dr Hurtado [facility] 07/2013: LAPAROSCOPY REPAIR INCISIONAL HERNIA REDUCIBLE Comment: [...] patient on (more content not included)... Normal [facility] CNOVSPon 03-01-2024 CNOVSP Visit (SP) Office (HEMAWS) ROSALINDA RUSSO ([id number]) 1970 F Date Time Provider Department 03/01/24 [...] HISTORY Procedure Laterality Date SECTION HX 01/2013 [facility] CHOLECYSTECTOMY 2009 [facility] HERNIA REPAIR HX 11/2013 Dr Hurtado [facility] LAPAROSCOPY REPAIR INCISIONAL HERNIA REDUCIBLE 07/2013 [facility] FAMILY HISTORY Problem Relation Age of Onset [...] which included preparing to see the patient, [id number] patient care, completing clinical documentation, obtaining and/or [...] [C92.10] Order(s):COMPREHENSIVE METABOLIC PANEL [SQCMP] Order #: [id number] FUTURE BCR/ABL1 P210 QUANTITATIVE PCR BLOOD [[id number]] Order #: [id number] (more content not included)... Normal [facility] Comprehensive metabolic 2000 panelOrdered By: Nely Lovelace on 03-01-2024 Albumin [Mass/Vol] 4.7 g/dL 3.9 - 4.9 g/dL [facility] ALP [Catalytic activity/Vol] 53 U/L 34 - 123 U/L [facility] ALT [Catalytic activity/Vol] 16 U/L 7 - 38 U/L [facility] Anion gap [Moles/Vol] 8 mmol/L 8 - 15 mmol/L [facility] AST [Catalytic activity/Vol] 16 U/L 13 - 35 U/L [facility] Bilirubin [Mass/Vol] 0.8 mg/dL 0.2 - 1 .3 mg/dL [facility] Calcium [Mass/Vol] 9.6 mg/dL 8.5 - 10. 2 mg/dL [facility] Chloride [Moles/Vol] 101 mmol/L 98 - 10 7 mmol/L [facility] CO2 [Moles/Vol] 28 mmol/L 22 - 30 mmol/L [facility] Creatinine [Mass/Vol] 0.87 mg/dL 0.58 - 0.96 mg/dL [facility] GFR/1.73 sq M.predicted among non-blacks MDRD (S/P/Bld) [Vol rate/Area] 80 mL/min/{1.73_m2} - PINF [facility] Comment on above: Estimated Glomerular Filtration [...] [Mass/Vol] 92 mg/dL 74 - 99 mg/dL [facility] Comment on above: The [place] Diabete s Association (ADA) provides guidance for [...] Standards of Medical Care in Diabetes 2016, [place] [employer] Association. Diabetes Care. 2016.39(Suppl 1). Interpretation and review of laboratory results Normal [facility] Potassium [Moles/Vol] 3.7 mmol/L 3.7 - 5.1 mmol/L [facility] Protein [Mass/Vol] 6.8 g/dL 6.3 - 8.0 g/dL [facility] Sodium [Moles/Vol] 137 mmol/L 136 - 144 mmol/L [facility] Urea nitrogen [Mass/Vol] 14 mg/dL 7 - 21 mg/dL [facility] Comprehensive metabolic 2000 panelon 03-01-2024 Albumin [Mass/Vol] 4.7 g/dL Normal 3.9-4.9 [facility] Comment on above: Order Comment: Speci men Type: BLOOD SPECIMENOrdering Facility: [facility] Address: [address] [place] [address] Performed By: #### 2 4323-8 ####[facility] [id number] [place] [address] [place] ALP [Catalytic activity/Vol] 53 U/L Normal 34-123 [facility] Comment on above: Order Comment: Speci men Type: BLOOD SPECIMENOrdering Facility: [facility] Address: [address] [place] [address] Performed By: #### 2 4323-8 ####[facility] MILLTOWNCLIA [id number] [place] [address] [place] ALT [Catalytic activity/Vol] 16 U/L Normal 7-38 [facility] Comment on above: Order Comment: Speci men Type: BLOOD SPECIMENOrdering Facility: [facility] Address: [address] [place] [address] Performed By: #### 2 4323-8 ####[facility]ITAL[facility]CL[facility] [id number] [place] [address] [place] Anion gap [Moles/Vol] 8 mmol/L Normal 8-15 [facility] Comment on above: Order Comment: Speci men Type: BLOOD SPECIMENOrdering Facility: [facility] Address: [address] [place] [address] Performed By: #### 2 4323-8 ####[facility] MILLTOWNCLIA [id number] [place] [address] [place] AST [Catalytic activity/Vol] 16 U/L Normal 13-35 [facility] Comment on above: Order Comment: Speci men Type: BLOOD SPECIMENOrdering Facility: [facility] Address: [address] [place] [address] Performed By: #### 2 4323-8 ####[facility] MILLHAMPTONNCLIA [id number] [place] [address] [place] Bilirubin [Mass/Vol] 0.8 mg/dL Normal 0.2-1.3 [facility] Comment on above: Order Comment: Speci men Type: BLOOD SPECIMENOrdering Facility: [facility] Address: [address] [place] [address] Performed By: #### 2 4323-8 ####[facility] MILLTOWNCLIA [id number] [place] [address] [place] Calcium [Mass/Vol] 9.6 mg/dL Normal 8.5-10.2 [facility] Comment on above: Order Comment: Speci men Type: BLOOD SPECIMENOrdering Facility: [facility] Address: [address] [place] [address] Performed By: #### 2 4323-8 ####[facility] MILLTOWNCLIA [id number] [place] [address] [place] Chloride [Moles/Vol] 101 mmol/L Normal 98-107 [facility] [place] Comment on above: Order Comment: Speci men Type: BLOOD SPECIMENOrdering Facility: [facility] Address: [address] [place] [address] Performed By: #### 2 4323-8 ####[facility] MILLWNCLIA [id number] [place] [address] [place] CO2 [Moles/Vol] 28 mmol/L Normal 22-30 [facility] Comment on above: Order Comment: Speci men Type: BLOOD SPECIMENOrdering Facility: [facility] Address: [address] [place] [address] Performed By: #### 2 4323-8 ####[facility] MILLTOWNCLIA [id number] [place] [address] [place] Creatinine [Mass/Vol] 0.87 mg/dL Normal 0.58-0.96 [facility] Comment on above: Order Comment: Speci men Type: BLOOD SPECIMENOrdering Facility: [facility] Address: [address] [place] [address] Performed By: #### 2 4323-8 ####[facility] MILLTOWNCLIA [id number] [place] [address] [place] Creatinine and Glomerular filtration rate.predicted panel (S/P/Bld) 80 mL/min/1.73m??? Normal >=60 [facility] Comment on above: Order Comment: Ryan rangel Type: BLOOD SPECIMENOrdering Facility: [facility] Address: [address] [place] [address] Result Comment: Angie mated Glomerular Filtration Rate [...] actual GFR. Performed By: #### 2 4323-8 ####[facility] [id number] [place] [address] [place] Glucose [Mass/Vol] 92 mg/dL Normal 74-99 [facility] Comment on above: Order Comment: Ryan rangel Type: BLOOD SPECIMENOrdering Facility: [facility] Address: [address] [place] [address] Result Comment: The [place] Diabetes Association (ADA) provides guidance for cutoff [...] Standards of Medical Care in Diabetes 2016, [place] Diabetes Association. Diabetes Care. 2016.39(Suppl 1). Performed By: #### 2 4323-8 ####[facility] [id number] [place] [address] [place] Potassium [Moles/Vol] 3.7 mmol/L Normal 3.7-5.1 [facility] Comment on above: Order Comment: Speci men Type: BLOOD SPECIMENOrdering Facility: [facility] Address: [address] [place] [address] Performed By: #### 2 4323-8 ####[facility]CL[facility] [id number] [place] [address] [place] Protein [Mass/Vol] 6.8 g/dL Normal 6.3-8.0 [facility] Comment on above: Order Comment: Speci men Type: BLOOD SPECIMENOrdering Facility: [facility] Address: [address] [place] [address] Performed By: #### 2 4323-8 ####[facility] [id number] [place] [address] [place] Sodium [Moles/Vol] 137 mmol/L Normal 136-144 [facility] Comment on above: Order Comment: Speci men Type: BLOOD SPECIMENOrdering Facility: [facility] Address: [address] [place] [address] Performed By: #### 2 4323-8 ####[facility] [id number] [place] [address] [place] Urea nitrogen [Mass/Vol] 14 mg/dL Normal 7-21 [facility] Comment on above: Order Comment: Speci men Type: BLOOD SPECIMENOrdering Facility: [facility] Address: [address] [place] [address] Performed By: #### 2 4323-8 ####[facility] [id number] [place] [address] [place] Lolita 02-25-2024 DIGNA Telephone (INTMWS) LISEDANGELOQUANROSALINDA Cornejo ([id number]) 1970 F Date Time Provider Department 02/25/24 [...] MARIA DEL ROSARIO COLEMAN on 02/25/24 Normal [facility] BCR/ABL1 P190 QUANTITATIVE P CR BLOODon 02-23-2024 BCR/ABL1 P190 INTERPRETATION Normal [facility] Comment on above: Order Comment: Speci men Type: BLOOD SPECIMENOrdering Facility: [facility] Address: [address] [place] [address] Result Comment: BCR/ ABL1 p190 Quantitative PCR Laboratory Accession Number: [id number] Result: UNDETECTED NCN: N/A Interpretation: p190 BCR/ABL1 [...] this sample, and cDNA prepared by reverse medical transcription supervisor. Real time PCR was performed using primers for e1a2 BCR/ABL1 fusion transcripts and ABL1 transcripts (qPCR BCR/ABL minor, [facility], [place], [place]). This test does not detect p210 (e13a2 or e14a2) or other rare BCR/ABL1 transcripts. This assay has a limit of quantification of 0.0036% (LR4.4) and limit of detection of 0.0025% (LR4.6). Disclaimer: This test was developed and its performance characteristics determined by [facility]'s Gee Nida [facility] [place] ([facility]). It has not been cleared or approved by the FDA. [facility] is regulated under CLIA as certified to perform high- complexity testing. This test is used for clinical purposes. It should not be regarded as investigational or for research. Testing and interpretation performed at [facility], [address] [place] [address]. CLIA Number: [id number] As reviewed by Nely Verma, PhD, FACMG Performed By: #### 2 10ISBP, 190NCBP ####[facility] [id number] [place] [address] [place]#### P190P, P210P ####[facility] LIMSCLIA [id number] [place] [address] [place] BCR/ABL1 Z234NLE BLOOD( AND BCR/ABL1:ABL1)on 02-23-2024 BCR/ABL1 P190 NCN(%BCR/ABL1:ABL1) N/A Normal [facility] Comment on above: Order Comment: Speci men Type: BLOOD SPECIMENOrdering Facility: [facility] Address: [address] [place] [address] Performed By: #### 2 10ISBP, 190NCBP ####[facility] [id number] [place] [address] [place]#### P190P, P210P ####[facility] LIMSCLIA [id number] [place] [address] [place] BCR/ABL1 P210 %IS PANELon BCR/ABL1 P210 %IS 1.8835 Normal [facility] Comment on above: Order Comment: Speci men Type: BLOOD SPECIMENOrdering Facility: [facility] Address: [address] [place] [address] Performed By: #### 2 10ISBP, 190NCBP ####[facility] [id number] [place] [id number]#### P190P, P210P ####[facility] LIMSCLIA [id number] [address] [place] BCR/ABL1 P210 MR 1.73 Normal [facility] Comment on above: Order Comment: Speci men Type: BLOOD SPECIMENOrdering Facility: [facility] Address: [address] [place] [address] Performed By: #### 2 10ISBP, 190NCBP ####[facility] [id number] [address] [place]#### P190P, P210P ####[facility] LIMSCLIA [id number] [address] STATES OF [facility] BCR/ABL1 P210 QUANTITATIVE P CR BLOODon 02-23-2024 BCR/ABL1 P210 INTERPRETATION Normal [facility] Comment on above: Order Comment: Speci men Type: BLOOD SPECIMENOrdering Facility: [facility] Address: [address] [place] [address] Result Comment: BCR/ ABL1 p210 Quantitative PCR Laboratory Accession Number: [id number] Result: DETECTED MR: 1.73 %IS: 1.8835 Interpretation: p210 BCR/ABL1 transcripts were detected. Quantitative results are expressed on the International Scale (IS) and a log molecular response (MR) is calculated. On this scale, a value of less than or equal to 0.1% corresponds to a major molecular response (MMR or MR3.0). Methodology: The [employer] QuantideX BCR/ABL IS assay is an FDA-cleared [...] FAC Performed By: #### 2 10ISBP, 190NCBP ####[facility] [id number] [place] [address] [place]#### P190P, P210P ####[facility] LIMSCLIA [id number] [place] [address] [place] CBC W Auto Differential pane l (Bld)on 02-23-2024 Basophils (Bld) [#/Vol] 0.07 10*3/uL Normal <0.11 [facility] Comment on above: Order Comment: Speci men Type: BLOOD SPECIMENOrdering Facility: [facility] Address: [address] [place] [address] Performed By: #### 5 7021-8 ####[facility] [id number] [place] [address] [place] Basophils/100 WBC (Bld) 1.1 % Normal [facility] Comment on above: Order Comment: Speci men Type: BLOOD SPECIMENOrdering Facility: [facility] Address: [address] [place] [address] Performed By: #### 5 7021-8 ####[facility] [id number] [place] [address] [place] Differential cell count method Nom (Bld) Auto Normal [facility] Comment on above: Order Comment: Speci men Type: BLOOD SPECIMENOrdering Facility: [facility] Address: [address] [place] [address] Performed By: #### 5 7021-8 ####[facility] [id number] [place] [address] [place] Eosinophils (Bld) [#/Vol] 0.17 10*3/uL Normal <0.46 [facility] Comment on above: Order Comment: Speci men Type: BLOOD SPECIMENOrdering Facility: [facility] Address: [address] [place] [address] Performed By: #### 5 7021-8 ####[facility] [id number] [place] [address] [place] Eosinophils/100 WBC (Bld) 2.7 % Normal [facility] Comment on above: Order Comment: Speci men Type: BLOOD SPECIMENOrdering Facility: [facility] Address: [address] [place] [address] Performed By: #### 5 7021-8 ####[facility] JOLENEHAMPTONALCIDES [id number] [place] [address] [place] Erythrocyte distribution width (RBC) [Ratio] 12.5 % Normal 11.5-15.0 [facility] Comment on above: Order Comment: Speci men Type: BLOOD SPECIMENOrdering Facility: [facility] [facility] Address: [address] [place] [address] Performed By: #### 5 7021-8 ####[facility] CITYNCSARAHA [id number] [place] [address] [place] Hematocrit (Bld) [Volume fraction] 37.2 % Normal 36.0-46.0 [facility] Comment on above: Order Comment: Speci men Type: BLOOD SPECIMENOrdering Facility: [facility] Address: [address] [place] [address] Performed By: #### 5 7021-8 ####[facility] CITYNCLIA [id number] [place] [address] [place] Hemoglobin (Bld) [Mass/Vol] 13.0 g/dL Normal 11.5-15.5 [facility] Comment on above: Order Comment: Speci men Type: BLOOD SPECIMENOrdering Facility: [facility] Address: [address] [place] [address] Performed By: #### 5 7021-8 ####[facility] HOSPITALWNCLIA [id number] [place] [address] [place] Immature granulocytes (Bld) [#/Vol] 10*3/uL Normal <0.10 [facility] Comment on above: Order Comment: Speci men Type: BLOOD SPECIMENOrdering Facility: [facility] Address: [address] [place] [address] Performed By: #### 5 7021-8 ####[facility]ITALLI [id number] [place] [address] [place] Immature granulocytes/100 WBC (Bld) 0.2 % Normal [facility] Comment on above: Order Comment: Speci men Type: BLOOD SPECIMENOrdering Facility: [facility] Address: [address] [place] [address] Performed By: #### 5 7021-8 ####[facility] [id number] [place] [address] [place] Lymphocytes (Bld) [#/Vol] 1.89 10*3/uL Normal 1.00-4.00 [facility] Comment on above: Order Comment: Speci men Type: BLOOD SPECIMENOrdering Facility: [facility] Address: [address] [place] [address] Performed By: #### 5 7021-8 ####[facility] [id number] [place] [address] [place] Lymphocytes/100 WBC (Bld) 30.1 % Normal [facility] Comment on above: Order Comment: Speci men Type: BLOOD SPECIMENOrdering Facility: [facility] Address: [address] [place] [address] Performed By: #### 5 7021-8 ####[facility] [id number] [place] [address] [place] MCH (RBC) [Entitic mass] 33.0 pg Normal 26.0-34.0 [facility] Comment on above: Order Comment: Speci men Type: BLOOD SPECIMENOrdering Facility: [facility] Address: [address] [place] [address] Performed By: #### 5 7021-8 ####[facility] [id number] [place] [address] [place] MCHC (RBC) [Mass/Vol] 34.9 g/dL Normal 30.5-36.0 [facility] Comment on above: Order Comment: Speci men Type: BLOOD SPECIMENOrdering Facility: [facility] Address: [address] [place] [address] Performed By: #### 5 7021-8 ####[facility] [id number] [place] [address] [place] MCV (RBC) [Entitic vol] 94.4 fL Normal 80.0-100.0 [facility] Comment on above: Order Comment: Speci men Type: BLOOD SPECIMENOrdering Facility: [facility] Address: [address] [place] [address] Performed By: #### 5 7021-8 ####[facility] [id number] [place] [address] [place] Monocytes (Bld) [#/Vol] 0.50 10*3/uL Normal <0.87 [facility] Comment on above: Order Comment: Speci men Type: BLOOD SPECIMENOrdering Facility: [facility] Address: [address] [place] [address] Performed By: #### 5 7021-8 ####[facility] [id number] [place] [address] [place] Monocytes/100 WBC (Bld) 8.0 % Normal [facility] Comment on above: Order Comment: Speci men Type: BLOOD SPECIMENOrdering Facility: [facility] Address: [address] [place] [address] Performed By: #### 5 7021-8 ####[facility] MILLTOWNCLIA [id number] [place] [address] [place] Neutrophils (Bld) [#/Vol] 3.63 10*3/uL Normal 1.45-7.50 [facility] Comment on above: Order Comment: Speci men Type: BLOOD SPECIMENOrdering Facility: [facility] Address: [address] [place] [address] Performed By: #### 5 7021-8 ####[facility] MILLWNCLIA [id number] [place] [address] [place] Neutrophils/100 WBC (Bld) 57.9 % Normal [facility] Comment on above: Order Comment: Speci men Type: BLOOD SPECIMENOrdering Facility: [facility] Address: [address] [place] [address] Performed By: #### 5 7021-8 ####[facility] HOSPITALWNCLIA [id number] [place] [address] [place] Nucleated RBC (Bld) [#/Vol] 10*3/uL Normal <0.01 [facility] Comment on above: Order Comment: Speci men Type: BLOOD SPECIMENOrdering Facility: [facility] Address: [address] [place] [address] Performed By: #### 5 7021-8 ####[facility] MILLTOWNCLIA [id number] [place] [address] [place] Nucleated RBC/100 WBC (Bld) [Ratio] 0.0 /100 WBC Normal [facility] Comment on above: Order Comment: Speci men Type: BLOOD SPECIMENOrdering Facility: [facility] Address: [address] [place] [address] Performed By: #### 5 7021-8 ####[facility] [id number] [place] [address] [place] Platelet mean volume (Bld) [Entitic vol] 9.8 fL Normal 9.0-12.7 [facility] Comment on above: Order Comment: Speci men Type: BLOOD SPECIMENOrdering Facility: [facility] Address: [address] [place] [address] Performed By: #### 5 7021-8 ####[facility] CITYALVAA [id number] [place] [address] [place] Platelets (Bld) [#/Vol] 153 10*3/uL Normal 150-400 [facility] Comment on above: Order Comment: Speci men Type: BLOOD SPECIMENOrdering Facility: [facility] Address: [address] [place] [address] Performed By: #### 5 7021-8 ####[facility] [id number] [place] [address] [place] RBC (Bld) [#/Vol] 3.94 10*6/uL Normal 3.90-5.20 [facility] Comment on above: Order Comment: Speci men Type: BLOOD SPECIMENOrdering Facility: [facility] Address: [address] [place] [address] Performed By: #### 5 7021-8 ####[facility]PITALLIA [id number] [place] [address] [place] WBC (Bld) [#/Vol] 6.27 10*3/uL Normal 3.70-11.00 [facility] Comment on above: Order Comment: Speci men Type: BLOOD SPECIMENOrdering Facility: [facility] Address: [address] [place] [address] Performed By: #### 5 7021-8 ####[facility] CITYNCLIA [id number] [place] [address] [place] Vit B12 [facility] 07-16-2 024 Cobalamin (Vitamin B12) [Mass/Vol] 1281 pg/mL High 232-1245 [facility] Comment on above: Order Comment: Speci men Type: BLOOD SPECIMENOrdering Facility: [facility] Address: [address] [place] [address] Performed By: #### 2 132-9 ####[facility] LABCLIA [id number] [facility]ITALDESK [id number] [place] [address] [place] CBC W Auto Differential pane l (Bld)on 02-16-2024 Basophils (Bld) [#/Vol] 0.08 10*3/uL Normal <0.11 [facility] Comment on above: Order Comment: Speci men Type: BLOOD SPECIMENOrdering Facility: [facility] Address: [address] [place] [address] Performed By: #### 5 7021-8 ####[facility] CITYDEVA [id number] [place] [address] [place] Basophils/100 WBC (Bld) 1.2 % Normal [facility] Comment on above: Order Comment: Speci men Type: BLOOD SPECIMENOrdering Facility: [facility] Address: [address] [place] [address] Performed By: #### 5 7021-8 ####[facility] CITYALVAA [id number] [place] [address] [place] Differential cell count method Nom (Bld) Auto Normal [facility] Comment on above: Order Comment: Speci men Type: BLOOD SPECIMENOrdering Facility: [facility] Address: [address] [place] [address] Performed By: #### 5 7021-8 ####[facility] CITYNCLIA [id number] [place] [address] [place] Eosinophils (Bld) [#/Vol] 0.16 10*3/uL Normal <0.46 [facility] Comment on above: Order Comment: Speci men Type: BLOOD SPECIMENOrdering Facility: [facility] Address: [address] [place] [address] Performed By: #### 5 7021-8 ####[facility] CITYNCSARAH [id number] [place] [address] [place] Eosinophils/100 WBC (Bld) 2.5 % Normal [facility] Comment on above: Order Comment: Speci men Type: BLOOD SPECIMENOrdering Facility: [facility] Address: [address] [place] [address] Performed By: #### 5 7021-8 ####[facility] [id number] [place] [address] [place] Erythrocyte distribution width (RBC) [Ratio] 12.5 % Normal 11.5-15.0 [facility] Comment on above: Order Comment: Speci men Type: BLOOD SPECIMENOrdering Facility: [facility] Address: [address] [place] [address] Performed By: #### 5 7021-8 ####[facility] [id number] [place] [address] [place] Hematocrit (Bld) [Volume fraction] 38.0 % Normal 36.0-46.0 [facility] Comment on above: Order Comment: Speci men Type: BLOOD SPECIMENOrdering Facility: [facility] Address: [address] [place] [address] Performed By: #### 5 7021-8 ####[facility]PITALLIA [id number] [place] [address] [place] Hemoglobin (Bld) [Mass/Vol] 13.4 g/dL Normal 11.5-15.5 [facility] Comment on above: Order Comment: Speci men Type: BLOOD SPECIMENOrdering Facility: [facility] Address: [address] [place] [address] Performed By: #### 5 7021-8 ####[facility] MILLTOWNCLIA [id number] [place] [address] [place] Immature granulocytes (Bld) [#/Vol] 10*3/uL Normal <0.10 [facility] Comment on above: Order Comment: Speci men Type: BLOOD SPECIMENOrdering Facility: [facility] Address: [address] [place] [address] Performed By: #### 5 7021-8 ####[facility] HOSPITALWNCLIA [id number] [place] [address] [place] Immature granulocytes/100 WBC (Bld) 0.2 % Normal [facility] Comment on above: Order Comment: Speci men Type: BLOOD SPECIMENOrdering Facility: [facility] Address: [address] [place] [address] Performed By: #### 5 7021-8 ####[facility]ITALLIA [id number] [place] [address] [place] Lymphocytes (Bld) [#/Vol] 2.32 10*3/uL Normal 1.00-4.00 [facility] Comment on above: Order Comment: Speci men Type: BLOOD SPECIMENOrdering Facility: [facility] Address: [address] [place] [address] Performed By: #### 5 7021-8 ####[facility] MILLTOWNCLIA [id number] [place] [address] [place] Lymphocytes/100 WBC (Bld) 35.5 % Normal [facility] Comment on above: Order Comment: Speci men Type: BLOOD SPECIMENOrdering Facility: [facility] Address: [address] [place] [address] Performed By: #### 5 7021-8 ####[facility] CITYNCLIA [id number] [place] [address] [place] MCH (RBC) [Entitic mass] 33.3 pg Normal 26.0-34.0 [facility] Comment on above: Order Comment: Speci men Type: BLOOD SPECIMENOrdering Facility: [facility] Address: [address] [place] [address] Performed By: #### 5 7021-8 ####[facility] CITYALCIDES [id number] [place] [address] [place] MCHC (RBC) [Mass/Vol] 35.3 g/dL Normal 30.5-36.0 [facility] Comment on above: Order Comment: Speci men Type: BLOOD SPECIMENOrdering Facility: [facility] Address: [address] [place] [address] Performed By: #### 5 7021-8 ####[facility] CITYNCNIMO [id number] [place] [address] [place] MCV (RBC) [Entitic vol] 94.3 fL Normal 80.0-100.0 [facility] Comment on above: Order Comment: Speci men Type: BLOOD SPECIMENOrdering Facility: [facility] Address: [address] [place] [address] Performed By: #### 5 7021-8 ####[facility] CITYALCIDES [id number] [place] [address] [place] Monocytes (Bld) [#/Vol] 0.53 10*3/uL Normal <0.87 [facility] Comment on above: Order Comment: Speci men Type: BLOOD SPECIMENOrdering Facility: [facility] Address: [address] [place] [address] Performed By: #### 5 7021-8 ####[facility] CITYNCLIA [id number] [place] [address] [place] Monocytes/100 WBC (Bld) 8.1 % Normal [facility] Comment on above: Order Comment: Speci men Type: BLOOD SPECIMENOrdering Facility: [facility] Address: [address] [place] [address] Performed By: #### 5 7021-8 ####[facility] OJLENEHAMPTONDEVLIA [id number] [place] [address] [place] Neutrophils (Bld) [#/Vol] 3.43 10*3/uL Normal 1.45-7.50 [facility] Comment on above: Order Comment: Speci men Type: BLOOD SPECIMENOrdering Facility: [facility] Address: [address] [place] [address] Performed By: #### 5 7021-8 ####[facility]ITALLIA [id number] [place] [address] [place] Neutrophils/100 WBC (Bld) 52.5 % Normal [facility] Comment on above: Order Comment: Speci men Type: BLOOD SPECIMENOrdering Facility: [facility] Address: [address] [place] [address] Performed By: #### 5 7021-8 ####[facility]PITALA [id number] [place] [address] [place] Nucleated RBC (Bld) [#/Vol] 10*3/uL Normal <0.01 [facility] Comment on above: Order Comment: Speci men Type: BLOOD SPECIMENOrdering Facility: [facility] Address: [address] [place] [address] Performed By: #### 5 7021-8 ####[facility]ITALLIA [id number] [place] [address] [place] Nucleated RBC/100 WBC (Bld) [Ratio] 0.0 /100 WBC Normal [facility] Comment on above: Order Comment: Speci men Type: BLOOD SPECIMENOrdering Facility: [facility] Address: [address] [place] [address] Performed By: #### 5 7021-8 ####[facility] MILLTOWNCLIA [id number] [place] [address] [place] Platelet mean volume (Bld) [Entitic vol] 9.6 fL Normal 9.0-12.7 [facility] Comment on above: Order Comment: Speci men Type: BLOOD SPECIMENOrdering Facility: [facility] Address: [address] [place], [place] [address] Performed By: #### 5 7021-8 ####[facility]OSPITALWNCLIA [id number] [place] [address] [place] Platelets (Bld) [#/Vol] 154 10*3/uL Normal 150-400 [facility] Comment on above: Order Comment: Speci men Type: BLOOD SPECIMENOrdering Facility: [facility] Address: [address] [place], [place] [address] Performed By: #### 5 7021-8 ####[facility] CITYNCLIA [id number] [place] [address] [place] RBC (Bld) [#/Vol] 4.03 10*6/uL Normal 3.90-5.20 [facility] Comment on above: Order Comment: Speci men Type: BLOOD SPECIMENOrdering Facility: [facility] Address: [address] [place] [address] Performed By: #### 5 7021-8 ####[facility]PITALWNCLIA [id number] [place] [address] [place] WBC (Bld) [#/Vol] 6.53 10*3/uL Normal 3.70-11.00 [facility] Comment on above: Order Comment: Speci men Type: BLOOD SPECIMENOrdering Facility: [facility] Address: [address] [place], [place] [address] Performed By: #### 5 7021-8 ####[facility] CITYNCLIA [id number] [place] [address] [place] CBC W Auto Differential pane l (Bld)on 01-26-2024 Basophils (Bld) [#/Vol] 0.08 10*3/uL Normal <0.11 [facility] Comment on above: Order Comment: Speci men Type: BLOOD SPECIMENOrdering Facility: [facility] Address: [address] [place] [address] Performed By: #### 5 7021-8 ####[facility] [id number] [place] [address] [place] Basophils/100 WBC (Bld) 1.3 % Normal [facility] Comment on above: Order Comment: Speci men Type: BLOOD SPECIMENOrdering Facility: [facility] Address: [address] [place] [address] Performed By: #### 5 7021-8 ####[facility] [id number] [place] [address] [place] Differential cell count method Nom (Bld) Auto Normal [facility] Comment on above: Order Comment: Speci men Type: BLOOD SPECIMENOrdering Facility: [facility] Address: [address] [place] [address] Performed By: #### 5 7021-8 ####[facility] [id number] [place] [address] [place] Eosinophils (Bld) [#/Vol] 0.15 10*3/uL Normal <0.46 [facility] Comment on above: Order Comment: Speci men Type: BLOOD SPECIMENOrdering Facility: [facility] Address: [address] [place] [address] Performed By: #### 5 7021-8 ####[facility] [id number] [place] [address] [place] Eosinophils/100 WBC (Bld) 2.4 % Normal [facility] Comment on above: Order Comment: Speci men Type: BLOOD SPECIMENOrdering Facility: [facility] Address: [address] [place] [address] Performed By: #### 5 7021-8 ####[facility] [id number] [place] [address] [place] Erythrocyte distribution width (RBC) [Ratio] 12.5 % Normal 11.5-15.0 [facility] Comment on above: Order Comment: Speci men Type: BLOOD SPECIMENOrdering Facility: [facility] Address: [address] [place] [address] Performed By: #### 5 7021-8 ####[facility] [id number] [place] [address] [place] Hematocrit (Bld) [Volume fraction] 39.9 % Normal 36.0-46.0 [facility] Comment on above: Order Comment: Speci men Type: BLOOD SPECIMENOrdering Facility: [facility] Address: [address] [place] [address] Performed By: #### 5 7021-8 ####[facility] [id number] [place] [address] [place] Hemoglobin (Bld) [Mass/Vol] 13.8 g/dL Normal 11.5-15.5 [facility] Comment on above: Order Comment: Speci men Type: BLOOD SPECIMENOrdering Facility: [facility] Address: [address] [place] [address] Performed By: #### 5 7021-8 ####[facility] [id number] [place] [address] [place] Immature granulocytes (Bld) [#/Vol] 10*3/uL Normal <0.10 [facility] Comment on above: Order Comment: Speci men Type: BLOOD SPECIMENOrdering Facility: [facility] Address: [address] [place] [address] Performed By: #### 5 7021-8 ####[facility] MILLWENCESLAOWNCLIA [id number] [place] [address] [place] Immature granulocytes/100 WBC (Bld) 0.2 % Normal [facility] Comment on above: Order Comment: Speci men Type: BLOOD SPECIMENOrdering Facility: [facility] Address: [address] [place] [address] Performed By: #### 5 7021-8 ####[facility]PITALWNCLIA [id number] [place] [address] [place] Lymphocytes (Bld) [#/Vol] 1.98 10*3/uL Normal 1.00-4.00 [facility] Comment on above: Order Comment: Speci men Type: BLOOD SPECIMENOrdering Facility: [facility] Address: [address] [place] [address] Performed By: #### 5 7021-8 ####[facility] CITYNCLIA [id number] [place] [address] [place] Lymphocytes/100 WBC (Bld) 32.1 % Normal [facility] Comment on above: Order Comment: Speci men Type: BLOOD SPECIMENOrdering Facility: [facility] Address: [address] [place] [address] Performed By: #### 5 7021-8 ####[facility]ITALWNCLIA [id number] [place] [address] [place] MCH (RBC) [Entitic mass] 32.7 pg Normal 26.0-34.0 [facility] Comment on above: Order Comment: Speci men Type: BLOOD SPECIMENOrdering Facility: [facility] Address: [address] [place] [address] Performed By: #### 5 7021-8 ####[facility] CITY[facility]CL[facility] [id number] [place] [address] [place] MCHC (RBC) [Mass/Vol] 34.6 g/dL Normal 30.5-36.0 [facility] Comment on above: Order Comment: Speci men Type: BLOOD SPECIMENOrdering Facility: [facility] Address: [address] [place] [address] Performed By: #### 5 7021-8 ####[facility] [id number] [place] [address] [place] MCV (RBC) [Entitic vol] 94.5 fL Normal 80.0-100.0 [facility] Comment on above: Order Comment: Speci men Type: BLOOD SPECIMENOrdering Facility: [facility] Address: [address] [place] [address] Performed By: #### 5 7021-8 ####[facility] [id number] [place] [address] [place] Monocytes (Bld) [#/Vol] 0.53 10*3/uL Normal <0.87 [facility] Comment on above: Order Comment: Speci men Type: BLOOD SPECIMENOrdering Facility: [facility] Address: [address] [place] [address] Performed By: #### 5 7021-8 ####[facility] [id number] [place] [address] [place] Monocytes/100 WBC (Bld) 8.6 % Normal [facility] Comment on above: Order Comment: Speci men Type: BLOOD SPECIMENOrdering Facility: [facility] Address: [address] [place] [address] Performed By: #### 5 7021-8 ####[facility] [id number] [place] [address] [place] Neutrophils (Bld) [#/Vol] 3.41 10*3/uL Normal 1.45-7.50 [facility] Comment on above: Order Comment: Speci men Type: BLOOD SPECIMENOrdering Facility: [facility] Address: [address] [place] [address] Performed By: #### 5 7021-8 ####[facility] [id number] [place] [address] [place] Neutrophils/100 WBC (Bld) 55.4 % Normal [facility] Comment on above: Order Comment: Speci men Type: BLOOD SPECIMENOrdering Facility: [facility] Address: [address] [place] [address] Performed By: #### 5 7021-8 ####[facility] [id number] [place] [address] [place] Nucleated RBC (Bld) [#/Vol] 10*3/uL Normal <0.01 [facility] Comment on above: Order Comment: Speci men Type: BLOOD SPECIMENOrdering Facility: [facility] Address: [address] [place] [address] Performed By: #### 5 7021-8 ####[facility] [id number] [place] [address] [place] Nucleated RBC/100 WBC (Bld) [Ratio] 0.0 /100 WBC Normal [facility] Comment on above: Order Comment: Speci men Type: BLOOD SPECIMENOrdering Facility: [facility] Address: [address] [place] [address] Performed By: #### 5 7021-8 ####[facility] [id number] [place] [address] [place] Platelet mean volume (Bld) [Entitic vol] 10.2 fL Normal 9.0-12.7 [facility] Comment on above: Order Comment: Speci men Type: BLOOD SPECIMENOrdering Facility: [facility] Address: [address] [place] [address] Performed By: #### 5 7021-8 ####[facility] JOLENEFlakoNCLIA [id number] [place] [address] [place] Platelets (Bld) [#/Vol] 164 10*3/uL Normal 150-400 [facility] Comment on above: Order Comment: Speci men Type: BLOOD SPECIMENOrdering Facility: [facility] Address: [address] [place] [address] Performed By: #### 5 7021-8 ####[facility] CITY[facility]CL[facility] [id number] [place] [address] [place] RBC (Bld) [#/Vol] 4.22 10*6/uL Normal 3.90-5.20 [facility] Comment on above: Order Comment: Speci men Type: BLOOD SPECIMENOrdering Facility: [facility] Address: [address] [place] [address] Performed By: #### 5 7021-8 ####[facility] CITYNCA [id number] [place] [address] [place] WBC (Bld) [#/Vol] 6.16 10*3/uL Normal 3.70-11.00 [facility] Comment on above: Order Comment: Speci men Type: BLOOD SPECIMENOrdering Facility: [facility] Address: [address] [place] [address] Performed By: #### 5 7021-8 ####[facility]CL[facility] [id number] [place] [address] [place] CBC W Auto Differential pane l (Bld)on 01-12-2024 Basophils (Bld) [#/Vol] 0.06 10*3/uL Normal <0.11 [facility] Comment on above: Order Comment: Speci men Type: BLOOD SPECIMENOrdering Facility: [facility] Address: [address] [place] [address] Performed By: #### 5 7021-8 ####[facility] MILLWNCLIA [id number] [place] [address] [place] Basophils/100 WBC (Bld) 1.0 % Normal [facility] Comment on above: Order Comment: Speci men Type: BLOOD SPECIMENOrdering Facility: [facility] Address: [address] [place] [address] Performed By: #### 5 7021-8 ####[facility] [id number] [place] [address] [place] Differential cell count method Nom (Bld) Auto Normal [facility] Comment on above: Order Comment: Speci men Type: BLOOD SPECIMENOrdering Facility: [facility] Address: [address] [place] [address] Performed By: #### 5 7021-8 ####[facility] CITYDEVLIA [id number] [place] [address] [place] Eosinophils (Bld) [#/Vol] 0.15 10*3/uL Normal <0.46 [facility] Comment on above: Order Comment: Speci men Type: BLOOD SPECIMENOrdering Facility: [facility] Address: [address] [place] [address] Performed By: #### 5 7021-8 ####[facility]PITALWNCLIA [id number] [place] [address] [place] Eosinophils/100 WBC (Bld) 2.5 % Normal [facility] Comment on above: Order Comment: Speci men Type: BLOOD SPECIMENOrdering Facility: [facility] Address: [address] [place] [address] Performed By: #### 5 7021-8 ####[facility] CITYNCL[facility] [id number] [place] [address] [place] Erythrocyte distribution width (RBC) [Ratio] 12.8 % Normal 11.5-15.0 [facility] Comment on above: Order Comment: Speci men Type: BLOOD SPECIMENOrdering Facility: [facility] Address: [address] [place] [address] Performed By: #### 5 7021-8 ####[facility] [id number] [place] [address] [place] Hematocrit (Bld) [Volume fraction] 37.7 % Normal 36.0-46.0 [facility] Comment on above: Order Comment: Speci men Type: BLOOD SPECIMENOrdering Facility: [facility] Address: [address] [place] [address] Performed By: #### 5 7021-8 ####[facility] [id number] [place] [address] [place] Hemoglobin (Bld) [Mass/Vol] 13.2 g/dL Normal 11.5-15.5 [facility] Comment on above: Order Comment: Speci men Type: BLOOD SPECIMENOrdering Facility: [facility] Address: [address] [place] [address] Performed By: #### 5 7021-8 ####[facility] [id number] [place] [address] [place] Immature granulocytes (Bld) [#/Vol] 10*3/uL Normal <0.10 [facility] Comment on above: Order Comment: Speci men Type: BLOOD SPECIMENOrdering Facility: [facility] Address: [address] [place] [address] Performed By: #### 5 7021-8 ####[facility] [id number] [place] [address] [place] Immature granulocytes/100 WBC (Bld) 0.2 % Normal [facility] Comment on above: Order Comment: Speci men Type: BLOOD SPECIMENOrdering Facility: [facility] Address: [address] [place] [address] Performed By: #### 5 7021-8 ####[facility] JOLENEHAMPTONDEVA [id number] [place] [address] [place] Lymphocytes (Bld) [#/Vol] 2.01 10*3/uL Normal 1.00-4.00 [facility] Comment on above: Order Comment: Speci men Type: BLOOD SPECIMENOrdering Facility: [facility] Address: [address] [place] [address] Performed By: #### 5 7021-8 ####[facility]ITAL[facility] [id number] [place] [address] [place] Lymphocytes/100 WBC (Bld) 33.8 % Normal [facility] Comment on above: Order Comment: Speci men Type: BLOOD SPECIMENOrdering Facility: [facility] Address: [address] [place] [address] Performed By: #### 5 7021-8 ####[facility]ITAL[facility] [id number] [place] [address] [place] MCH (RBC) [Entitic mass] 33.4 pg Normal 26.0-34.0 [facility] Comment on above: Order Comment: Speci men Type: BLOOD SPECIMENOrdering Facility: [facility] Address: [address] [place] [address] Performed By: #### 5 7021-8 ####[facility]ITALL[facility] [id number] [place] [address] [place] MCHC (RBC) [Mass/Vol] 35.0 g/dL Normal 30.5-36.0 [facility] Comment on above: Order Comment: Speci men Type: BLOOD SPECIMENOrdering Facility: [facility] Address: [address] [place] [address] Performed By: #### 5 7021-8 ####[facility] MILLWNCLIA [id number] [place] [address] [place] MCV (RBC) [Entitic vol] 95.4 fL Normal 80.0-100.0 [facility] Comment on above: Order Comment: Speci men Type: BLOOD SPECIMENOrdering Facility: [facility] Address: [address] [place] [address] Performed By: #### 5 7021-8 ####[facility] CITYNCLIA [id number] [place] [address] [place] Monocytes (Bld) [#/Vol] 0.57 10*3/uL Normal <0.87 [facility] Comment on above: Order Comment: Speci men Type: BLOOD SPECIMENOrdering Facility: [facility] Address: [address] [place] [address] Performed By: #### 5 7021-8 ####[facility] [id number] [place] [address] [place] Monocytes/100 WBC (Bld) 9.6 % Normal [facility] Comment on above: Order Comment: Speci men Type: BLOOD SPECIMENOrdering Facility: [facility] Address: [address] [place] [address] Performed By: #### 5 7021-8 ####[facility]ITALL[facility] [id number] [place] [address] [place] Neutrophils (Bld) [#/Vol] 3.15 10*3/uL Normal 1.45-7.50 [facility] Comment on above: Order Comment: Speci men Type: BLOOD SPECIMENOrdering Facility: [facility] Address: [address] [place] [address] Performed By: #### 5 7021-8 ####[facility] CITYNCLIA [id number] [place] [address] [place] Neutrophils/100 WBC (Bld) 52.9 % Normal [facility] Comment on above: Order Comment: Speci men Type: BLOOD SPECIMENOrdering Facility: [facility] Address: [address] [place] [address] Performed By: #### 5 7021-8 ####[facility] [id number] [place] [address] [place] Nucleated RBC (Bld) [#/Vol] 10*3/uL Normal <0.01 [facility] Comment on above: Order Comment: Speci men Type: BLOOD SPECIMENOrdering Facility: [facility] Address: [address] [place] [address] Performed By: #### 5 7021-8 ####[facility] [id number] [place] [address] [place] Nucleated RBC/100 WBC (Bld) [Ratio] 0.0 /100 WBC Normal [facility] Comment on above: Order Comment: Speci men Type: BLOOD SPECIMENOrdering Facility: [facility] Address: [address] [place] [address] Performed By: #### 5 7021-8 ####[facility] [id number] [place] [address] [place] Platelet mean volume (Bld) [Entitic vol] 9.6 fL Normal 9.0-12.7 [facility] Comment on above: Order Comment: Speci men Type: BLOOD SPECIMENOrdering Facility: [facility] Address: [address] [place] [address] Performed By: #### 5 7021-8 ####[facility] [id number] [place] [address] [place] Platelets (Bld) [#/Vol] 144 10*3/uL Low 150-400 [facility] Comment on above: Order Comment: Speci men Type: BLOOD SPECIMENOrdering Facility: [facility] Address: [address] [place], [place] [address] Performed By: #### 5 7021-8 ####[facility] JOHNATHON DEBORAHALVAA [id number] [place] [address] [place] RBC (Bld) [#/Vol] 3.95 10*6/uL Normal 3.90-5.20 [facility] Comment on above: Order Comment: Speci men Type: BLOOD SPECIMENOrdering Facility: [facility] Address: [address] [place], [place] [address] Performed By: #### 5 7021-8 ####[facility] JOLENEHAMPTONNCLIA [id number] [place] [address] [place] WBC (Bld) [#/Vol] 5.95 10*3/uL Normal 3.70-11.00 [facility] Comment on above: Order Comment: Speci men Type: BLOOD SPECIMENOrdering Facility: [facility] Address: [address] [place], [place] [address] Performed By: #### 5 7021-8 ####[facility] JOLENEHAMPTONALVAA [id number] [place] [address] [place] XR Pelvis and Hip - left AP and Lateral frogon 12-23-2023 IMPRESSION: Negative. Quality Liaison: KING Transcribe Date/Time: Dec 23 2023 4:03P Dictated by : RODGER ELLIOTT MD This examination was interpreted and the report reviewed and electronically signed by: RODGER ELLIOTT MD on Dec 23 2023 4:04PM [facility] DIVISION OF RADIOLOGY * * *Final Report* [...] tissue abnormality is evident. IMPRESSION IMPRESSION: Negative. Quality Liaison: PSCB Transcribe Date/Time: Dec 23 2023 4:03P Dictated by : RODGER ELLIOTT MD This examination was interpreted and the report reviewed and electronically signed by: RODGER ELLIOTT MD on Dec 23 2023 4:04PM EST [facility] XR Pelvis and Hip - left AP and Lateral frogOrdered By: Ccf Provider on 12-23-2023 [facility] XR Pelvis and Hip - left AP and Lateral frogon 12-17-2023 Radiology Study observation (narrative) [facility] Absolute lymphocyte countOrd ered By: Arleen Rodríguez on 04-01-2023 Lymphocytes Auto (Unsp spec) [#/Vol] 10.12 10*3/uL 0.83-4.51 [facility] Basophil percentageOrdered B y: Arleen Rodríguez on 04-01-2023 Basophil percentage Not Reportable W [facility] Chloride [Moles/Vol] 104 mmol/L 98-107 [facility] Glucose [Mass/Vol] 133 mg/dL 74-106 [facility] Comment on above: Fasting Glucose resu lt greater than or equal to 126 mg/dL suggests DIABETES MELLITUS per A.D.A. criteria. Neutrophils (Bld) [#/Vol] 182.1 10*3/uL 2.0-7.7 [facility] Potassium [Moles/Vol] 3.8 mmol/L 3.5-5.1 [facility] Sodium [Moles/Vol] 137 mmol/L 136-145 [facility] WBC (Bld) [#/Vol] 337.3 10*3/uL 4.4-11.0 [facility] Comment on above: CRITICAL VALUE VERIF IED. [facility]14 Aparna Khalil.RESULTS READ BACK BY SAME . Blood band neutrophil count as percentage of total leukocytesOrdered By: Arleen Rodríguez on 04-01-2023 Band form neutrophils/100 WBC (Bld) 23 % 0-5 [facility] Blood erythrocytes count (nu mber/volume)Ordered By: Arleen Rodríguez on 04-01-2023 RBC (Bld) [#/Vol] 3.21 10*6/uL 4.2-5.4 [facility] Blood hemoglobin measurement (mass/volume)Ordered By: Arleen Rodríguez on 04-01-2023 Hemoglobin (Bld) [Mass/Vol] 10.4 g/dL 12.0-15.0 [facility] Blood lymphocytes/100 leukoc ytesOrdered By: Arleen Rodríguez on 04-01-2023 Lymphocytes/100 WBC (Bld) 3 % 19-41 [facility] Blood metamyelocytes/100 charlie kocytesOrdered By: Arleen Rodríguez on 04-01-2023 Metamyelocytes/100 WBC (Bld) 7 % 0-1 [facility] Blood monocytes/100 leukocyt esOrdered By: Arleen Rodríguez on 04-01-2023 Monocytes/100 WBC (Bld) 4 % 0-10 [facility] Blood platelet mean volumeOr dered By: Arleen Rodríguez on 04-01-2023 Platelet mean volume (Bld) [Entitic vol] 11.5 fL 6.2-12.0 [facility] Blood promyelocytes/100 leuk ocytesOrdered By: Arleen Rodríguez on 04-01-2023 Promyelocytes/100 WBC (Bld) 29 % 0-0 [facility] Blood segmented neutrophils/ 100 leukocytesOrdered By: Arleen Rodríguez on 04-01-2023 Segmented neutrophils/100 WBC (Bld) 31 % 47-70 [facility] Determination of erythrocyte mean corpuscular volume (MCV)Ordered By: Arleen Rodríguez on 04-01-2023 MCV (RBC) [Entitic vol] 95.0 fL 81-99 [facility] Hematocrit Auto (Bld) [Volum e fraction]Ordered By: Arleen Rodríguez on 04-01-2023 Hematocrit (Bld) [Volume fraction] 30.5 % 37-47 [facility] Laboratory - Chemistry and C hemistry - challengeOrdered By: Arleen Rodríguez on 04-01-2023 CO2 [Moles/Vol] 27.0 mmol/L 21.0-32.0 [facility] Urea nitrogen/Creatinine [Mass ratio] 14.2 mg/mg 10-20 [facility] - Hematology and Cell countsOrdered By: Arleen Rodríguez on 04-01-2023 Erythrocyte distribution width (RBC) [Entitic vol] 62.5 fL 35.1-43.9 [facility] Erythrocyte distribution width (RBC) [Ratio] 18.3 % 11.6-14.6 [facility] MCH (RBC) [Entitic mass] 32.4 pg 27.0-32.0 [facility] Myelocytes/100 WBC (Bld) 3 % 0-0 [facility] MCHC Auto (RBC) [Mass/Vol]Or dered By: Arleen Rodríguez on 04-01-2023 MCHC (RBC) [Mass/Vol] 34.1 g/dL 32-36 [facility] No Panel InformationOrdered By: Arleen Rodríguez on 04-01-2023 D-Dimer Quantitative (PE/DVT) 0.56 FEU/ug/m 0.27-0.49 [facility] Comment on above: D-Dimer ELEVATED (>0 .49): Additional studies and clinicalassessments are indicated to conclude diagnosis of:Deep Vein Thrombosis (DVT) or Pulmonary Embolism (PE)CRITICAL VALUE VERIFIED. CALLED TO [facility]04/01/23 0769 Aparna Khalil.RESULTS READ BACK BY SAME . Estimated Creatinine Clearance Calc 53.00 ml/min [facility] Estimated GFR (MDRD) Amer 65 mL/min >60 [facility] Comment on above: GFR Calc Estimated GFR (MDRD) Non-Af Amer 54 mL/min >60 [facility] Comment on above: Non- GFR Calc Troponin I High Sensitivity 7 pg/mL 3.0-54.0 [facility] Comment on above: Please Note: New Petra t Units and Gender Specific Reference Ranges. For more information see Policy Stat Procedure [place] High Sensitivity Troponin (TNIH) and attachments. Platelets bldOrdered By: Heather Rodríguez on 04-01-2023 Platelets (Bld) [#/Vol] 130 10*3/uL 150-450 [facility] Review by pathologistOrdered By: Arleen Rodríguez on 04-01-2023 Pathologist review [place] (Unsp spec) [Interp] December [facility] Serum or plasma calcium aleyda urement (mass/volume)Ordered By: Arleen Rodríguez on 04-01-2023 Calcium [Mass/Vol] 9.2 mg/dL 8.5-10.1 [facility] Serum or plasma creatinine m easurement (mass/volume)Ordered By: Arleen Rodríguez on 04-01-2023 Creatinine [Mass/Vol] 1.13 mg/dL 0.55-1.02 [facility] Comment on above: The validity of the calculated GFR & GFRAA in patients over 70 years has not been determined. Clinical correlation is essential. Serum or plasma urea nitroge n measurement (mass/volume)Ordered By: Arleen Rodríguez on 04-01-2023 Urea nitrogen [Mass/Vol] 16 mg/dL 7-18 [facility] Thin prep Papanicolaou smear with manual screeningOrdered By: Arleen Rodríguez on 04-01-2023 Thin prep Papanicolaou smear with manual screening 6 5-15 [facility] Total cell countOrdered By: Arleen Rodríguez on 04-01-2023 Cells counted Molgen (Bld/Tiss) [#] 100 MANUAL DIFF [facility] Surgical Specimenon 11-26-19 Surgical Specimen [place] [id number] FINAL SURGICAL PATHOLOGY REPORT NAME: ROSALINDA RUSSO Date of 11/25/2022 Collection: Medical Record [id number] Date of 11/26/2022 Number: Receipt: Age: 52 Y Sex: F Date 11/28/2022 12:18 Reported: Date Of : 1970 Financial [id number] Admitting RAHUL RAMAN Number: Physician: [facility] Location: Physician: Accession Number: [...] aggregate dimension. Entirely submitted. Block label A1. ([facility] CODES: 39221; Department of Pathology Page 1 of 1 Normal [facility] BONE MARROW BIOPSY [facility] Vital Signs Date Time Vital Sign Value Performing Clinician Facility 12-12-2024 08:25-0400 Body mass index (BMI) [Ratio] 29.75 kg/m2 Prince Uribe MD Work Phone: [facility] 12-12-2024 08:25-0400 Body temperature 98.8 [degF] Prince Uribe MD Work Phone: [facility] 12-12-2024 08:25-0400 Body weight 77.11 kg Prince Uribe MD Work Phone: [facility] 12-12-2024 08:25-0400 Diastolic blood pressure 67 mm[Hg] Prince Uribe MD Work Phone: [facility] 12-12-2024 08:25-0400 Heart rate 77 /min Prince Uribe MD Work Phone: [facility] 12-12-2024 08:25-0400 SaO2% (BldA) [Mass fraction] 99 % Prince Uribe MD Work Phone: [facility] 12-12-2024 08:25-0400 Systolic blood pressure 103 mm[Hg] Prince Uribe MD Work Phone: [facility] 09-29-2024 10:02-0500 Body mass index (BMI) [Ratio] 29.57 kg/m2 Marga Crowe MD Work Phone: [facility] 09-29-2024 10:02-0500 Body weight 76.66 kg Marga Crowe MD Work Phone: [facility] 09-29-2024 10:02-0500 Diastolic blood pressure 82 mm[Hg] Marga Crowe MD Work Phone: [facility] 09-29-2024 10:02-0500 Systolic blood pressure 112 mm[Hg] Marga Crowe MD Work Phone: [facility] 09-23-2024 09:17-0500 Body mass index (BMI) [Ratio] 29.19 kg/m2 Eden Petersen MD Work Phone: [facility] 09-23-2024 09:17-0500 Body weight 75.66 kg Eden Petersen MD Work Phone: [facility] 09-23-2024 09:17-0500 Diastolic blood pressure 71 mm[Hg] Eden Petersen MD Work Phone: [facility] 09-23-2024 09:17-0500 Heart rate 85 /min Eden Petersen MD Work Phone: [facility] 09-23-2024 09:17-0500 Respiratory rate 16 /min Eden Petersen MD Work Phone: [facility] 09-23-2024 09:17-0500 SaO2% (BldA) [Mass fraction] 99 % Eden Petersen MD Work Phone: [facility] 09-23-2024 09:17-0500 Systolic blood pressure 109 mm[Hg] Eden Petersen MD Work Phone: [facility] 09-05-2024 14:48-0500 Body mass index (BMI) [Ratio] 29.12 kg/m2 Marga Crowe MD Work Phone: [facility] 09-05-2024 14:48-0500 Body weight 75.48 kg Marga Crowe MD Work Phone: [facility] 09-05-2024 14:48-0500 Diastolic blood pressure 72 mm[Hg] Marga Crowe MD Work Phone: [facility] 09-05-2024 14:48-0500 Systolic blood pressure 126 mm[Hg] Marga Crowe MD Work Phone: [facility] 06-21-2024 09:28-0500 Body mass index (BMI) [Ratio] 28.52 kg/m2 Eden Petersen MD Work Phone: [facility] 06-21-2024 09:28-0500 Body weight 73.94 kg Eden Petersen MD Work Phone: [facility] 06-21-2024 09:28-0500 Diastolic blood pressure 80 mm[Hg] Eden Petersen MD Work Phone: [facility] 06-21-2024 09:28-0500 Heart rate 63 /min Eden Petersen MD Work Phone: [facility] 06-21-2024 09:28-0500 Respiratory rate 16 /min Eden Petersen MD Work Phone: [facility] 06-21-2024 09:28-0500 Systolic blood pressure 108 mm[Hg] Eden Petersen MD Work Phone: [facility] 06-17-2024 11:31-0500 Body height 165.1 cm Rahul Raman MD Work Phone: [facility] 06-17-2024 11:31-0500 Body mass index (BMI) [Ratio] 26.79 kg/m2 Rahul Raman MD Work Phone: [facility] 06-17-2024 11:31-0500 Body weight 73.03 kg Rahul Raman MD Work Phone: [facility] 06-09-2024 09:52-0400 Body mass index (BMI) [Ratio] 28.44 kg/m2 Prince Uribe MD Work Phone: [facility] 06-09-2024 09:52-0400 Body temperature 99 [degF] Prince Uribe MD Work Phone: [facility] 06-09-2024 09:52-0400 Body weight 73.71 kg Prince Uribe MD Work Phone: [facility] 06-09-2024 09:52-0400 Diastolic blood pressure 72 mm[Hg] Prince Uribe MD Work Phone: [facility] 06-09-2024 09:52-0400 Heart rate 62 /min Prince Uribe MD Work Phone: [facility] 06-09-2024 09:52-0400 SaO2% (BldA) [Mass fraction] 98 % Prince Uribe MD Work Phone: [facility] 06-09-2024 09:52-0400 Systolic blood pressure 110 mm[Hg] Prince Uribe MD Work Phone: [facility] 04-20-2024 11:26-0400 Body mass index (BMI) [Ratio] 28.09 kg/m2 Judith Older BLIND LACER.RETURNS SUPERVISOR Work Phone: [facility] 04-20-2024 11:26-0400 Body weight 72.8 kg Judith Older BLIND LACER.RETURNS SUPERVISOR Work Phone: [facility] 04-20-2024 11:26-0400 Diastolic blood pressure 72 mm[Hg] Judith Older BLIND LACER.RETURNS SUPERVISOR Work Phone: [facility] 04-20-2024 11:26-0400 Heart rate 84 /min Judith Older BLIND LACER.RETURNS SUPERVISOR Work Phone: [facility] 04-20-2024 11:26-0400 Respiratory rate 16 /min Judith Older BLIND LACER.RETURNS SUPERVISOR Work Phone: [facility] 04-20-2024 11:26-0400 SaO2% (BldA) [Mass fraction] 98 % Judith Older BLIND LACER.RETURNS SUPERVISOR Work Phone: [facility] 04-20-2024 11:26-0400 Systolic blood pressure 118 mm[Hg] Judith Older BLIND LACER.RETURNS SUPERVISOR Work Phone: [facility] 03-01-2024 10:07-0400 Body mass index (BMI) [Ratio] 28.26 kg/m2 Prince Uribe MD Work Phone: [facility] 03-01-2024 10:07-0400 Body temperature 98.71 [degF] Prince Uribe MD Work Phone: [facility] 03-01-2024 10:07-0400 Body weight 73.26 kg Prince Uribe MD Work Phone: [facility] 03-01-2024 10:07-0400 Diastolic blood pressure 73 mm[Hg] Prince Uribe MD Work Phone: [facility] 03-01-2024 10:07-0400 Heart rate 79 /min Prince Uribe MD Work Phone: [facility] 03-01-2024 10:07-0400 SaO2% (BldA) [Mass fraction] 97 % Prince Uribe MD Work Phone: [facility] 03-01-2024 10:07-0400 Systolic blood pressure 120 mm[Hg] Prince Uribe MD Work Phone: [facility] 12-23-2023 10:56-0400 Body mass index (BMI) [Ratio] 28.26 kg/m2 Marc Masci DO Work Phone: [facility] 12-23-2023 10:56-0400 Body temperature 98.1 [degF] Marc Frosti DO Work Phone: [facility] 12-23-2023 10:56-0400 Body weight 73.26 kg Marc Masci DO Work Phone: [facility] 12-23-2023 10:56-0400 Diastolic blood pressure 74 mm[Hg] Marc Frosti DO Work Phone: [facility] 12-23-2023 10:56-0400 Heart rate 74 /min Marc Frosti DO Work Phone: [facility] 12-23-2023 10:56-0400 SaO2% (BldA) [Mass fraction] 99 % Marc Frosti DO Work Phone: [facility] 12-23-2023 10:56-0400 Systolic blood pressure 114 mm[Hg] Marc Frosti DO Work Phone: [facility] 12-17-2023 10:23-0400 Body mass index (BMI) [Ratio] 28.35 kg/m2 Judith Older BLIND LACER.RETURNS SUPERVISOR Work Phone: [facility] 12-17-2023 10:23-0400 Body weight 73.48 kg Judith Older BLIND LACER.RETURNS SUPERVISOR Work Phone: [facility] 12-17-2023 10:23-0400 Diastolic blood pressure 70 mm[Hg] Judith Older BLIND LACER.RETURNS SUPERVISOR Work Phone: [facility] 12-17-2023 10:23-0400 Heart rate 65 /min Judith Older BLIND LACER.RETURNS SUPERVISOR Work Phone: [facility] 12-17-2023 10:23-0400 Respiratory rate 16 /min Judith Older BLIND LACER.RETURNS SUPERVISOR Work Phone: [facility] 12-17-2023 10:23-0400 SaO2% (BldA) [Mass fraction] 100 % Judith Older BLIND LACER.RETURNS SUPERVISOR Work Phone: [facility] 12-17-2023 10:23-0400 Systolic blood pressure 103 mm[Hg] Judith Older BLIND LACER.RETURNS SUPERVISOR Work Phone: [facility] 10-27-2023 08:37-0400 Body temperature 98.71 [degF] Prince Uribe MD Work Phone: [facility] 10-27-2023 08:37-0400 Body weight 73.03 kg Prince Uribe MD Work Phone: [facility] 10-27-2023 08:37-0400 Diastolic blood pressure 77 mm[Hg] Prinec Uribe MD Work Phone: [facility] 10-27-2023 08:37-0400 Heart rate 71 /min Prince Uribe MD Work Phone: [facility] 10-27-2023 08:37-0400 SaO2% (BldA) [Mass fraction] 100 % Prince Uribe MD Work Phone: [facility] 10-27-2023 08:37-0400 Systolic blood pressure 115 mm[Hg] Prince Uribe MD Work Phone: [facility] 09-18-2023 09:44-0500 Body weight 71.22 kg Judith Older BLIND LACER.RETURNS SUPERVISOR Work Phone: [facility] 09-18-2023 09:44-0500 Diastolic blood pressure 78 mm[Hg] Judith Older BLIND LACER.RETURNS SUPERVISOR Work Phone: [facility] 09-18-2023 09:44-0500 Heart rate 64 /min Judith Older BLIND LACER.RETURNS SUPERVISOR Work Phone: [facility] 09-18-2023 09:44-0500 Respiratory rate 16 /min Judith Older BLIND LACER.RETURNS SUPERVISOR Work Phone: [facility] 09-18-2023 09:44-0500 SaO2% (BldA) [Mass fraction] 98 % Judith Older BLIND LACER.RETURNS SUPERVISOR Work Phone: [facility] 09-18-2023 09:44-0500 Systolic blood pressure 112 mm[Hg] Judith Older BLIND LACER.RETURNS SUPERVISOR Work Phone: [facility] 06-02-2023 10:40-0400 Body temperature 98.49 [degF] Prince Uribe MD Work Phone: [facility] 06-02-2023 10:40-0400 Body weight 65.32 kg Prince Uribe MD Work Phone: [facility] 06-02-2023 10:40-0400 Diastolic blood pressure 65 mm[Hg] Prince Uribe MD Work Phone: [facility] 06-02-2023 10:40-0400 Heart rate 64 /min Prince Uribe MD Work Phone: [facility] 06-02-2023 10:40-0400 SaO2% (BldA) [Mass fraction] 100 % Prince Uribe MD Work Phone: [facility] 06-02-2023 10:40-0400 Systolic blood pressure 104 mm[Hg] Prince Uribe MD Work Phone: [facility] 05-12-2023 08:48-0400 Body temperature 98.01 [degF] Yee Lind BLIND LACER.RETURNS SUPERVISOR Work Phone: [facility] 05-12-2023 08:48-0400 Body weight 64.64 kg [place] Lind BLIND LACER.RETURNS SUPERVISOR Work Phone: [facility] 05-12-2023 08:48-0400 Diastolic blood pressure 72 mm[Hg] Yee Lind BLIND LACER.RETURNS SUPERVISOR Work Phone: [facility] 05-12-2023 08:48-0400 Heart rate 70 /min Yee Lind BLIND LACER.RETURNS SUPERVISOR Work Phone: [facility] 05-12-2023 08:48-0400 SaO2% (BldA) [Mass fraction] 100 % [place] Lind BLIND LACER.RETURNS SUPERVISOR Work Phone: [facility] 05-12-2023 08:48-0400 Systolic blood pressure 106 mm[Hg] Yee Lind BLIND LACER.RETURNS SUPERVISOR Work Phone: [facility] 04-30-2023 09:43-0400 Body weight 63.5 kg Judith Older BLIND LACER.RETURNS SUPERVISOR Work Phone: [facility] 04-30-2023 09:43-0400 Diastolic blood pressure 70 mm[Hg] Judith Older BLIND LACER.RETURNS SUPERVISOR Work Phone: [facility] 04-30-2023 09:43-0400 Heart rate 93 /min Judith Older BLIND LACER.RETURNS SUPERVISOR Work Phone: [facility] 04-30-2023 09:43-0400 Respiratory rate 16 /min Judith Older BLIND LACER.RETURNS SUPERVISOR Work Phone: [facility] 04-30-2023 09:43-0400 SaO2% (BldA) [Mass fraction] 99 % Judith Older BLIND LACER.RETURNS SUPERVISOR Work Phone: [facility] 04-30-2023 09:43-0400 Systolic blood pressure 108 mm[Hg] Judith Older BLIND LACER.RETURNS SUPERVISOR Work Phone: [facility] 04-02-2023 14:11-0400 Diastolic blood pressure 84 mm[Hg] Yee Lind BLIND LACER.RETURNS SUPERVISOR Work Phone: [facility] 04-02-2023 14:11-0400 Heart rate 94 /min Yee Lind BLIND LACER.RETURNS SUPERVISOR Work Phone: [facility] 04-02-2023 14:11-0400 Systolic blood pressure 124 mm[Hg] [place] Lind BLIND LACER.RETURNS SUPERVISOR Work Phone: [facility] 04-02-2023 12:50-0400 Body height 161 cm Prince Uribe MD Work Phone: [facility] 04-02-2023 12:50-0400 Body temperature 98.49 [degF] Prince Uribe MD Work Phone: [facility] 04-02-2023 12:50-0400 Body weight 61.92 kg Prince Uribe MD Work Phone: [facility] 04-02-2023 12:50-0400 Diastolic blood pressure 80 mm[Hg] Prince Uribe MD Work Phone: [facility] 04-02-2023 12:50-0400 Heart rate 101 /min Prince Uribe MD Work Phone: [facility] 04-02-2023 12:50-0400 SaO2% (BldA) [Mass fraction] 98 % Prince Uribe MD Work Phone: [facility] 04-02-2023 12:50-0400 Systolic blood pressure 130 mm[Hg] Prince Uirbe MD Work Phone: [facility] 04-01-2023 19:04-0400 Diastolic blood pressure 87 mm[Hg] [facility] 04-01-2023 19:04-0400 Heart rate 67 /min [facility] 04-01-2023 19:04-0400 Respiratory rate 14 /min [facility] 04-01-2023 19:04-0400 SaO2% (BldA) [Mass fraction] 98 % [facility] 04-01-2023 19:04-0400 Systolic blood pressure 139 mm[Hg] [facility] 04-01-2023 15:59-0400 Body height 165.1 cm [facility] 04-01-2023 15:59-0400 Body mass index (BMI) [Ratio] 23.4 kg/m2 [facility] 04-01-2023 15:59-0400 Body temperature 97 [degF] [facility] 04-01-2023 15:59-0400 Body weight 63.95 kg [facility] 09-26-2022 08:59-0500 Body height 162.6 cm Maria Del Rosario Jesús PA-C Work Phone: [facility] 09-26-2022 08:59-0500 Body temperature 97.59 [degF] Maria Del Rosario Jesús PA-C Work Phone: [facility] 09-26-2022 08:59-0500 Body weight 71.4 kg Maria Del Rosario Jesús PA-C Work Phone: [facility] 09-26-2022 08:59-0500 Diastolic blood pressure 78 mm[Hg] Maria Del Rosario [place] PA-C Work Phone: [facility] 09-26-2022 08:59-0500 Heart rate 96 /min Maria Del Rosario [place] PA-C Work Phone: [facility] 09-26-2022 08:59-0500 SaO2% (BldA) [Mass fraction] 98 % Maria Del Rosario Jesús PA-C Work Phone: [facility] 09-26-2022 08:59-0500 Systolic blood pressure 118 mm[Hg] Maria Del Rosario [place] PA-C Work Phone: [facility] 09-10-2022 10:34-0500 Body height 162.6 cm Eden Petersen MD Work Phone: [facility] 09-10-2022 10:34-0500 Body temperature 98.1 [degF] Eden Petersen MD Work Phone: [facility] 09-10-2022 10:34-0500 Body weight 70.31 kg Eden Petersen MD Work Phone: [facility] 09-10-2022 10:34-0500 Diastolic blood pressure 66 mm[Hg] Eden Petersen MD Work Phone: [facility] 09-10-2022 10:34-0500 Heart rate 90 /min Eden Petersen MD Work Phone: [facility] 09-10-2022 10:34-0500 Respiratory rate 12 /min Eden Petersen MD Work Phone: [facility] 09-10-2022 10:34-0500 SaO2% (BldA) [Mass fraction] 98 % Eden Petersen MD Work Phone: [facility] 09-10-2022 10:34-0500 Systolic blood pressure 132 mm[Hg] Eden Petersen MD Work Phone: [facility] 01-02-2022 13:22-0400 Body height 160 cm Judith Older BLIND LACER.RETURNS SUPERVISOR Work Phone: [facility] 01-02-2022 13:22-0400 Body weight 78.93 kg Judith Older BLIND LACER.RETURNS SUPERVISOR Work Phone: [facility] 01-02-2022 13:22-0400 Diastolic blood pressure 78 mm[Hg] Judith Older BLIND LACER.RETURNS SUPERVISOR Work Phone: [facility] 01-02-2022 13:22-0400 Heart rate 72 /min Judith Older BLIND LACER.RETURNS SUPERVISOR Work Phone: [facility] 01-02-2022 13:22-0400 Respiratory rate 14 /min Judith Older BLIND LACER.RETURNS SUPERVISOR Work Phone: [facility] 01-02-2022 13:22-0400 SaO2% (BldA) [Mass fraction] 99 % Judith Older BLIND LACER.RETURNS SUPERVISOR Work Phone: [facility] 01-02-2022 13:22-0400 Systolic blood pressure 126 mm[Hg] Judith Older BLIND LACER.RETURNS SUPERVISOR Work Phone: [facility] Encounters Encounter Date Encounter Type Care Provider Facility Start: 01-03-2025 End: 01-03-2025 ambulatory [facility] Facility:[facility] Start: 12-12-2024 End: 12-12-2024 Patient encounter procedure Prince Uribe MD Work Phone: Hematology/Oncology Start: 12-12-2024 End: 12-12-2024 ambulatory Prince Uribe MD Work Phone: Hematology/Oncology Comment on above: CML (chronic myeloid leukemia) (HCC) (Primary Dx) Start: 12-02-2024 End: 12-02-2024 ambulatory [facility] Facility:[facility] Start: 11-14-2024 End: 11-17-2024 ambulatory Prince Uribe [...] Start: 10-13-2024 End: 10-14-2024 Refill Judith Older BL[employer] LACER.RETURNS SUPERVISOR Work Phone: [facility] [place] Comment on above: Refill Request Start: 09-30-2024 End: 11-30-2024 Follow-up encounter Marga Crowe MD Work Phone: OB/Gynecology Start: 09-29-2024 End: 09-29-2024 ambulatory [employer] [facility] Work Phone: OB/Gynecology Start: 09-29-2024 End: 09-29-2024 Patient encounter procedure Marga Crowe MD Work Phone: OB/Gynecology Comment on above: Endometrial thickeni ng on ultrasound (Primary Dx) Start: 09-27-2024 End: 09-27-2024 Refill Judith Older BLIND LACER.RETURNS SUPERVISOR Work Phone: [facility] [place] Comment on above: Refill Request Start: 09-23-2024 End: 09-23-2024 ambulatory EDEN PETERSEN Facility:[facility] Start: 09-23-2024 End: 09-23-2024 Office outpatient visit [...] 09-06-2024 End: 09-06-2024 ambulatory Negro Dawson PT [facility] Physical [facility] Comment on above: Degeneration of inte rvertebral disc of lumbar region, unspecified whether pain present (Primary Dx); Thoracogenic scoliosis, unspecified spinal region; Chronic bilateral low back pain, unspecified whether sciatica present Start: 09-06-2024 End: 09-06-2024 [facility] Facility:[facility] Start: 09-05-2024 End: 09-05-2024 [facility] Facility:[facility] Start: 09-05-2024 End: 09-05-2024 Patient encounter procedure Marga Croew MD Work Phone: OB/Gynecology Comment on above: Endometrial thickeni ng on ultrasound (Primary Dx); Ovarian cyst, right Start: 09-03-2024 End: 09-05-2024 Refill Judith Howell APRN.CNP Work Phone: [facility] [place] Comment on above: Refill Request Start: 08-26-2024 End: 08-26-2024 Emergency department patient visit Steve Welch Facility:[facility] Start: 08-17-2024 End: 08-17-2024 Telephone encounter Prince Uribe MD Work Phone: Hematology/Oncology Comment on above: insurance approval Start: 07-28-2024 End: 07-28-2024 ambulatory Negro Dawson PT [facility] Comment on above: Scoliosis, unspecifi ed scoliosis type, unspecified spinal region (Primary Dx); Degeneration of intervertebral disc of lumbar region, unspecified whether pain present; Chronic bilateral back pain, unspecified back location Start: 07-04-2024 End: 07-06-2024 ambulatory Eden Petersen MD Work Phone: [facility] [place] Start: 07-04-2024 End: 07-06-2024 [facility] visit new patient Eden Petersen MD Work Phone: [facility] [place] Comment on above: New patient Start: 07-01-2024 End: 11-01-2024 Telephone encounter Eden Petersen MD Work Phone: [facility] [place] Comment on above: Results (Xray back/) Start: 07-01-2024 End: 07-01-2024 ambulatory [facility] Facility:[facility] Start: 07-01-2024 End: 07-01-2024 Subsequent hospital visit by physician [facility] Work Phone: Radiology Comment [...] End: 06-21-2024 Subsequent hospital visit by physician [facility] [place] [facility] Work Phone: Radiology Comment on above: Scoliosis, unspecifi ed scoliosis type, unspecified spinal region [M41.9] Start: 06-21-2024 End: 06-21-2024 ambulatory [facility] Facility:[facility] Start: 06-21-2024 End: 06-21-2024 [facility] Facility:[facility] Start: 06-21-2024 End: 06-21-2024 Office outpatient visit [...] (Primary Dx) Start: 06-01-2024 End: 06-01-2024 ambulatory [facility] Facility:[facility] Start: 05-06-2024 End: 05-09-2024 Refill Judith Howell APRN.CNP Work Phone: [facility] [place] Comment on above: Refill Request Start: 05-04-2024 End: 05-05-2024 ambulatory Prince Uribe MD Work Phone: Hematology/Oncology Comment on above: Generic Sprycel Start: 04-26-2024 End: 04-28-2024 ambulatory Prince Uribe MD Work Phone: Hematology/Oncology Comment on above: Pain in neck and und erarm Start: 04-22-2024 End: 04-22-2024 Telephone encounter Judith Howell APRN.RETURNS SUPERVISOR Work Phone: [facility] [place] Comment on above: Results Start: 04-21-2024 End: 04-21-2024 ambulatory [facility] Facility:[facility] Start: 04-20-2024 End: 04-20-2024 ambulatory [facility] Facility:[facility] Start: 04-20-2024 End: 04-20-2024 Patient encounter procedure Judith Howell APRN.RETURNS SUPERVISOR Work Phone: [facility] [place] Comment on above: Abnormal menses (Kacie bailee Dx); Acquired hypothyroidism Start: 04-15-2024 End: 04-19-2024 ambulatory Judith Howell APRN.RETURNS SUPERVISOR Work Phone: [facility] [place] Comment on above: Spotting Start: 03-01-2024 End: 03-01-2024 Patient encounter procedure Prince Uribe MD Work Phone: Hematology/Oncology Start: 03-01-2024 End: 03-01-2024 ambulatory Prince Uribe MD Work Phone: Hematology/Oncology Comment on above: CML (chronic myeloid leukemia) (HCC) (Primary Dx) Start: 02-25-2024 Telephone encounter Judith Howell APRN.RETURNS SUPERVISOR Work Phone: [facility] [place] Comment on above: Results Start: 02-23-2024 End: 02-23-2024 ambulatory [facility] Facility:[facility] Start: 02-16-2024 End: 02-16-2024 ambulatory [facility] Facility:[facility] Start: 01-26-2024 End: 01-26-2024 ambulatory [facility] Facility:[facility] Start: 01-12-2024 End: 01-12-2024 ambulatory [facility] Facility:[facility] Start: 12-23-2023 End: 12-23-2023 ambulatory Marc Castillo DO Work Phone: Hematology/Oncology Comment on above: CML (chronic myeloid leukemia) (HCC) (Primary Dx) Start: 12-23-2023 End: 12-23-2023 Patient encounter procedure Marc Castillo DO Work Phone: Hematology/Oncology Start: 12-17-2023 End: 12-17-2023 Subsequent hospital visit by physician [facility] [place] Work Phone: Radiology Comment on above: Left hip pain [M25.5 52] Start: 12-17-2023 End: 12-17-2023 Ophthalmic examination and evaluation Judith Howell APRN.RETURNS SUPERVISOR Work Phone: [facility] Start: 12-17-2023 End: 12-17-2023 Patient encounter procedure Judith Howell APRN.RETURNS SUPERVISOR Work Phone: [facility] [place] Comment on [...] 11-23-2023 ambulatory Prince jimenez MD Work Phone: [facility] Start: 11-23-2023 Patient encounter procedure Prince Uribe MD Work Phone: Hematology/Oncology Comment on above: Appointment for November 23 Start: 11-17-2023 ambulatory Prince jimenez MD Work Phone: Hematology/Oncology Comment on above: Sprycel Start: 11-09-2023 ambulatory Prince jimenez MD Work Phone: [facility] Start: 11-09-2023 Patient encounter procedure Prince Uribe [...] encounter procedure Prince Uribe MD [facility] Phone: [facility] Start: 10-14-2023 ambulatory Eden Plata Work Phone: Internal Medicine [place] Start: 09-18-2023 End: 09-18-2023 Patient encounter procedure Judith Howell APRN.CNP Work Phone: [facility] [place] Comment on above: Benign hypertension (Primary Dx); Anxiety and depression; Insomnia, unspecified type Start: 09-10-2023 End: 09-10-2023 Patient encounter procedure Allison Daniels APRN.RETURNS SUPERVISOR Work Phone: Dermatology Comment on above: Seborrheic keratosis (Primary Dx); Epidermal inclusion cyst; Rosacea; Androgenetic alopecia Start: 07-15-2023 Refill Judith SimsRETURNS SUPERVISOR Work Phone: [facility] [place] Comment on above: Refill Request Start: 07-06-2023 ambulatory Yee carson APRN.CNP Work Phone: Hematology/Oncology Comment on above: BCR/ABL1 Start: 06-02-2023 End: 06-02-2023 ambulatory Prince Uribe MD Work Phone: Hematology/Oncology Comment on above: CML (chronic myeloid leukemia) (HCC) (Primary Dx) Start: 06-02-2023 End: 06-02-2023 Patient encounter procedure Prince Uribe MD Work Phone: [facility] Start: 05-12-2023 End: 05-12-2023 ambulatory Yee Lind BLIND LACER.RETURNS SUPERVISOR Work Phone: Hematology/Oncology Comment on above: CML (chronic myeloid leukemia) (HCC) (Primary Dx) Start: 05-12-2023 End: 05-12-2023 Patient encounter procedure Yee Lind BLIND LACER.RETURNS SUPERVISOR Work Phone: [facility] Start: 04-30-2023 End: 04-30-2023 Patient encounter procedure Judith Howell BLIND LACER.RETURNS SUPERVISOR Work Phone: [facility] [place] Comment on above: Acquired hypothyroid ism (Primary Dx); CML (chronic myelocytic leukemia) (HCC); Medication management; High triglycerides; Benign hypertension; Rash Start: 04-24-2023 ambulatory Judith Older BLIND LACER .RETURNS SUPERVISOR Work Phone: [facility] [place] Comment on above: IC Bupropion HCL XL [...] Duty Imatinib Start: 04-07-2023 [facility] Comment on above: Pharmacy for medicat ion Start: 04-07-2023 Patient encounter procedure Ebony Torreso formerly [facility] Comment on above: [facility]PP Oral Oncology/he matology - Treatment Referral ([place]); Insurance Authorization (Pending PA submission) Start: 04-02-2023 Telephone encounter Prince edwards MD Work Phone: Hematology/Oncology Comment on above: Appointment Start: 04-02-2023 End: 04-02-2023 ambulatory Yee Lind APRN.RETURNS SUPERVISOR Work Phone: Hematology/Oncology Comment on above: Leukemoid reaction Leukemoid reaction ( Primary Dx) Start: 04-02-2023 End: 04-02-2023 Patient encounter procedure Yee Lind APRN.RETURNS SUPERVISOR Work Phone: [facility] Start: 04-01-2023 End: 04-01-2023 Emergency department patient visit [facility] Work Phone: Start: 02-24-2023 ambulatory Eden Petersen M D Work Phone: Internal Medicine [facility] Start: 11-05-2022 ambulatory Eden Petersen M D Work Phone: Internal Medicine [facility] Start: 10-28-2022 ambulatory Eden Petersen M D [...] Refill Eden Plata Work Phone: Internal [facility] [place] Comment on above: Refill Request Start: 04-27-2022 Refill Judith Older BLIND LACER .RETURNS SUPERVISOR Work Phone: Internal Medicine [place] Comment on above: Refill Request Start: 04-02-2022 Refill Judith Older BLIND LACER .RETURNS SUPERVISOR Work Phone: Internal Medicine [place] Comment on above: Refill Request Start: 04-01-2022 Refill Judith Older BLIND LACER .RETURNS SUPERVISOR Work Phone: Internal Medicine [place] Comment on above: Refill Request Start: 03-28-2022 Refill Eden Plata Work Phone: Internal Medicine [place] Comment on above: Refill Request Start: 01-02-2022 End: 01-02-2022 Patient encounter procedure Judith Older BLIND LACER.RETURNS SUPERVISOR Work Phone: Internal Medicine [place] Comment on above: Annual physical exam (Primary Dx); Benign hypertension; Epidermoid cyst; Urinary retention; Anxiety and depression; Acne rosacea; Acquired hypothyroidism; Lipid screening Start: 12-17-2021 ambulatory Eden Plata Work Phone: Internal [facility] Start: 12-06-2021 Refill Judith Older BLIND LACER .RETURNS SUPERVISOR Work Phone: Internal Medicine [place] Comment on above: Refill Request Start: 12-05-2021 Refill Judith Older BLIND LACER .RETURNS SUPERVISOR Work Phone: Internal Medicine [place] Comment on above: Refill Request Start: 12-04-2021 ambulatory Eden Plata Work Phone: Internal [facility] Start: 10-29-2021 Refill Yani Fulton BLIND LACER.RETURNS SUPERVISOR Work Phone: Internal Medicine [place] Comment on above: Refill Request Procedures Date Procedure Procedure Detail Performing Clinician Start: 09-29-2024 Us pelvic nonobstetr ic real-time image complete Marga Crowe MD Work Phone: Start: 09-23-2024 Adult depression scr eening assessment Eden Petersen MD Work Phone: Start: 06-17-2024 Gonadotropin follicl e stimulating hormone Rahul Raman MD Work Phone: Start: 12-17-2023 Radex hip unilateral with pelvis 2-3 views Judith Howell BLIND LACER.RETURNS SUPERVISOR Work Phone: Start: 06-30-2023 Lipid 1996 panel - S windy or Plasma Yee Lind BLIND LACER.RETURNS SUPERVISOR Work Phone: Start: 04-14-2023 Lipid 1996 panel - S windy or Plasma Annie Alba RN Work Phone: Start: 04-02-2023 Diagnostic bone marci ow biopsies & aspirations Yee Lind BLIND LACER.RETURNS SUPERVISOR Work Phone: Start: 04-01-2023 CT angiography of ch est with contrast Start: 04-01-2023 Plain chest X-ray Start: 01-02-2022 Adult depression scr eening assessment Judith Howell BLIND LACER.RETURNS SUPERVISOR Work Phone: Start: 12-22-2020 Adult depression scr eening assessment Yani Fulton BLIND LACER.RETURNS SUPERVISOR Work Phone: Start: 03-05-2017 Mammography Yani Trent nhlazarus BLIND LACER.RETURNS SUPERVISOR Work Phone: Plan of Treatment Date Care Activity Detail Author Start: 06-30-2028 Lipid 1996 panel - Serum or Plasma Lipid Screening [facility] Start: 06-30-2028 Lipid panel Lipid Screening [facility] Start: 04-14-2028 Lipid 1996 panel - Serum or Plasma Lipid Screening [facility] Start: 04-14-2028 LIPID SCREEN LIPID SCREEN [facility] Start: 12-03-2027 Diabetes Screening Diabetes Screening [facility] Start: 09-06-2027 Diabetes Screening Diabetes Screening [facility] Start: 06-09-2027 Diabetes Screening Diabetes Screening [facility] Start: 04-21-2027 Diabetes Screening Diabetes Screening [facility] Start: 03-01-2027 Diabetes Screening Diabetes Screening [facility] Start: 12-28-2026 Diabetes Screening Diabetes Screening [facility] Start: 12-14-2026 Diabetes Screening Diabetes Screening [facility] Start: 11-30-2026 Diabetes Screening Diabetes Screening [facility] Start: 11-16-2026 Diabetes Screening Diabetes Screening [facility] Start: 11-02-2026 Diabetes Screening Diabetes Screening [facility] Start: 08-11-2026 Diabetes Screening Diabetes Screening [facility] Start: 07-14-2026 Diabetes Screening Diabetes Screening [facility] Start: 06-30-2026 Diabetes Screening Diabetes Screening [facility] Start: 06-02-2026 Diabetes Screening Diabetes Screening [facility] Start: 05-12-2026 Diabetes Screening Diabetes Screening [facility] Start: 04-28-2026 Diabetes Screening Diabetes Screening [facility] Start: 04-21-2026 Diabetes Screening Diabetes Screening [facility] Start: 04-14-2026 DIABETES SCREEN DIABETES SCREEN [facility] Start: 01-17-2026 PAP TESTING PAP TESTING [facility] Start: 01-17-2026 Screening for malignant neoplasm of cervix Pap Testing [facility] Start: 12-12-2025 BP Controlled (<130/80) BP Controlled (<130/80) [facility] in Start: 09-23-2025 Annual PCP Team Chronic Disease Visit Annual PCP Team Chronic Disease Visit [facility] Start: 09-23-2025 Anxiety Screening Anxiety Screening [facility] Start: 09-23-2025 BP Controlled (<130/80) BP Controlled (<130/80) [facility] in Start: 09-23-2025 Covid-19 Vaccine () Covid-19 Vaccine () [facility] Comment on above: Postponed from 04/10/2024 (Declined at t his time) Start: 09-23-2025 Depression Screening Depression Screening [facility] Start: 09-05-2025 BP Controlled (<130/80) BP Controlled (<130/80) [facility] in Start: 06-21-2025 Annual PCP Team Chronic Disease Visit Annual PCP Team Chronic Disease Visit [facility] Start: 06-17-2025 Screening for malignant neoplasm of breast Mammogram Screening [facility] Start: 06-17-2025 Screening for malignant neoplasm of cervix Cervical Cancer Screening [facility] Start: 06-09-2025 BP Controlled (<130/80) BP Controlled (<130/80) [facility] in Start: 04-20-2025 Annual PCP Team Chronic Disease Visit Annual PCP Team Chronic Disease Visit [facility] Start: 04-20-2025 BP Controlled (<130/80) BP Controlled (<130/80) [facility] Start: 04-10-2025 Influenza vaccination Influenza Vaccine (Season Ended) [facility] Start: 03-27-2025 End: 03-27-2025 Patient encounter procedure 03/27/2025 9:20 AM EDT Office Visit Internal [facility] [place] [address] [place] [address] Eden Petersen MD [address] [place] [address] 6 month f/u [facility] [place] Comment on above: 6 month f/u Start: 03-21-2025 End: 03-21-2025 ambulatory 03/21/2025 8:40 AM EDT [facility] Hematology/Oncology [address] [place] [address] Prince Uribe MD [address] [place] [address] 3MO VV Hematology/Oncology Comment on above: 3MO VV Start: 03-14-2025 End: 03-14-2025 ambulatory 03/14/2025 8:00 AM EDT Results Only [place] [facility] [address] [place] [address] [facility] Comment on above: CBC/CMP Start: 03-01-2025 BP Controlled (<130/80) BP Controlled (<130/80) [facility] Start: 02-06-2025 Influenza [facility] Comment on above: Postponed from 04/10/2024 (Declined at t his time) Start: 01-03-2025 End: 01-03-2025 ambulatory 01/03/2025 8:00 AM EDT Results Only [place] [facility] [address] [place] [address] [facility] Comment on above: CBC Start: 12-26-2024 End: 03-27-2025 CBC W Auto Differential panel - Blood COMPLETE BLOOD COUNT AND DIFFERENTIAL Lab Routine CML (chronic myeloid leukemia) (HCC) Expected: 12/26/2024, Expires: 03/27/2025 [facility] Work Phone: Comment on above: Expected: 12/26/2024, Expires: Start: 12-26-2024 End: 03-27-2025 Comprehensive metabolic 2000 panel - Serum or Plasma COMPREHENSIVE METABOLIC PANEL Lab Routine CML (chronic myeloid leukemia) (HCC) Expected: 12/26/2024, Expires: 03/27/2025 [facility] Comment on above: Expected: 12/26/2024, Expires: Start: 12-23-2024 DIABETES SCREEN DIABETES SCREEN [facility] Start: 12-22-2024 BP Controlled (<130/80) BP Controlled (<130/80) [facility] in Start: 12-16-2024 Annual PCP Team Chronic Disease Visit Annual PCP Team Chronic Disease Visit [facility] Start: 12-16-2024 BP Controlled (<130/80) BP Controlled (<130/80) [facility] Start: 12-16-2024 Hepatitis B Vaccine (1 of 3 - 19+ 3-dose series) Hepatitis B Vaccine (1 of 3 - 19+ 3-dose series) [facility] Comment on above: Postponed from 01/24/1991 (Declined at t his time) Start: 12-16-2024 Pneumococcal vaccination Pneumococcal Vaccine (1 of 2 - PCV) [facility] Comment on above: Postponed from 01/24/1978 (Declined at t his time) Start: 12-16-2024 Shingrix Vaccine (1 of 2) Shingrix Vaccine (1 of 2) [facility] Comment on above: Postponed from 01/24/1991 (Declined at t his time) Start: 12-16-2024 Urine microalbumin profile DTaP,Tdap,Td Vaccine (2 - Td or Tdap) [facility] Comment on above: Postponed from 05/01/2021 (Declined at t his time) Start: 12-12-2024 End: 12-12-2024 ambulatory 12/12/2024 8:30 AM EDT Visit (SP) Office Hematology/Oncology [address] [place] [address] Prince Uribe MD [address] [place] [address] OV/LAB WEEK PRIOR* Hematology/Oncology Comment on above: OV/LAB WEEK PRIOR* Start: 12-02-2024 End: 12-02-2024 ambulatory [place] [facility] Start: 10-26-2024 BP Controlled (<130/80) BP Controlled (<130/80) [facility] inic Start: 10-17-2024 End: 10-17-2024 ambulatory 10/17/2024 8:45 AM EDT Results Only [place] [facility] [address] [place] [address] [place] [facility] Start: 09-29-2024 End: 09-29-2024 Patient encounter procedure 09/29/2024 10:10 AM EST Office Visit OB/Gynecology [address] [place] [address] Marga Crowe MD [address] 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 [facility] [address] [place] [address] Endometrial thickening on ultrasound [R93.89]; Ovarian cyst, right [N83.201] OB/Gynecology Comment on above: Endometrial thickening on ultrasound [R9 3.89]; Ovarian cyst, right [N83.201] Start: 09-23-2024 End: 09-23-2024 Patient encounter procedure 09/23/2024 9:20 AM EST Office Visit Internal Medicine [place] [address] [place] [address] Eden Petersen MD [address] [place] [address] 3 mo follow up Internal Medicine [place] Comment on above: 3 mo follow up Start: 09-18-2024 Annual PCP Team Chronic Disease Visit Annual PCP Team Chronic Disease Visit [facility] Start: 09-18-2024 BP Controlled (<130/80) BP Controlled (<130/80) [facility] Start: 09-13-2024 End: 09-13-2024 ambulatory 09/13/2024 8:40 AM EST [facility] Hematology/Oncology [address] [place] [address] [place] [address] [place], [place] [id number] 3 MO VOLLOW UP/LABS 09/06* Hematology/Oncology Comment on above: 3 MO VOLLOW UP/LABS 09/06* Start: 09-06-2024 End: 09-06-2024 ambulatory 09/06/2024 1:15 PM EST OT/PT/Speech Visit [facility] Therapy [address] [place] [address] Negro Dawson PT Scoliosis, unspecified scoliosis type, unspecified spinal region [M41.9]; Degeneration of intervertebral disc of lumbar region, unspecified whether pain present [M51.369]; Chronic bilateral back pain, unspecified back location [M54.9, G89.29] [facility] Comment on above: Scoliosis, unspecified scoliosis type, u nspecified spinal region [M41.9]; Degeneration of intervertebral disc of lumbar region, unspecified whether pain present [M51.369]; Chronic bilateral back pain, unspecified back location [M54.9, G89.29] Start: 09-06-2024 End: 09-06-2024 ambulatory [facility] Comment on above: CBC/CMP/BCR ABL PCR* (SO)CBC/CMP(S)/BCR A BL PCR* Start: 09-05-2024 End: 09-05-2024 Patient encounter procedure 09/05/2024 2:40 PM EST Office Visit OB/Gynecology [address] [place] [address] Marga Crowe MD [address] [place] [address] Endometrial thickening on ultrasound [R93.89] OB/Gynecology Comment on above: Endometrial thickening on ultrasound [R9 3.89] Start: 09-05-2024 End: 09-05-2025 US Pelvis PELVIC US [facility] Anc Imaging Routine Endometrial thickening on ultrasound Ovarian cyst, right Expected: 09/05/2024, Expires: 09/05/2025 [facility] Work Phone: Comment on above: Expected: 09/05/2024, Expires: Start: 08-22-2024 End: 08-22-2024 ambulatory 08/22/2024 12:15 PM EST OT/PT/Speech Visit [facility] Physical Therapy [address] [place] [address] Negro Dawson, PT appt rescheduled on 08/12/24 /// Scoliosis, unspecified scoliosis type, unspecified spinal region [M41.9]; Degeneration of intervertebral disc of lumbar region, unspecified whether pain present [M51.369]; Chronic bilateral back pain, unspecified back location [M54.9, G89.29] [facility] Comment on above: appt rescheduled on 08/12/24 /// Scolios is, unspecified scoliosis type, unspecified spinal region [M41.9]; Degeneration of intervertebral disc of lumbar region, unspecified whether pain present [M51.369]; Chronic bilateral back pain, unspecified back location [M54.9, G89.29] Start: 08-17-2024 Covid-19 Vaccine () Covid-19 Vaccine () [facility] Comment on above: Postponed from 04/10/2023 (Declined at t his time) Start: 08-12-2024 End: 08-12-2024 ambulatory 08/12/2024 9:45 AM EST OT/PT/Speech Visit [place] [facility] Physical Therapy [address] [place] [address] Negro Dawson, PT Scoliosis, unspecified scoliosis type, unspecified spinal region [M41.9]; Degeneration of intervertebral disc of lumbar region, unspecified whether pain present [M51.369]; Chronic bilateral back pain, unspecified back location [M54.9, G89.29] [place] [facility] Physical Therapy Comment on above: Scoliosis, [...] EST Office Visit Internal Medicine [place] [address] [place] [address] Eden Petersen MD [address] [place] [address] 6 month follow up Internal [facility] [place] Comment on above: 6 month follow up Start: 06-17-2024 End: 06-17-2024 Patient encounter procedure 06/17/2024 11:30 AM EST Office Visit [facility] [address] [facility] [place] [address] Rahul Raman MD [address] [place] [address] Arrived [facility] Comment on above: Arrived Start: 06-09-2024 End: 06-09-2024 ambulatory 06/09/2024 9:40 AM EDT Visit (SP) Office Hematology/Oncology [address] [place] [address] [place] [address] [place] [address] 3 MO OV/LAB 06/01* Hematology/Oncology Comment on above: 3 MO OV/LAB 06/01* Start: 06-02-2024 BP Controlled (<130/80) BP Controlled (<130/80) [facility] Start: 06-01-2024 End: 06-01-2024 ambulatory 06/01/2024 8:30 AM EDT Results Only [place] [facility] [address] [place] [address] LAB* [place] [facility] Comment on above: LAB* Start: 05-12-2024 BP Controlled (<130/80) BP Controlled (<130/80) [facility] Start: 04-30-2024 Annual PCP Team Chronic Disease Visit Annual PCP Team Chronic Disease Visit [facility] Start: 04-30-2024 BP Controlled (<130/80) BP Controlled (<130/80) [facility] Start: 04-20-2024 End: 07-20-2024 Basic metabolic 2000 panel - Serum or Plasma BASIC METABOLIC PANEL Lab Routine Abnormal menses Expected: 04/20/2024, Expires: 07/20/2024 [facility] Comment on above: Expected: 04/20/2024, Expires: 4 Start: 04-20-2024 End: 07-20-2024 CBC W Auto Differential panel - Blood COMPLETE BLOOD COUNT AND DIFFERENTIAL Lab Routine Abnormal menses Expected: 04/20/2024, Expires: 07/20/2024 [facility] Comment on above: Expected: 04/20/2024, Expires: Start: 04-20-2024 End: 07-20-2024 Choriogonadotropin ( test) [Presence] in Urine HCG, QUALITATIVE, URINE Lab Routine Abnormal menses Expected: 04/20/2024, Expires: 07/20/2024 [facility] Work Phone: Comment on above: Expected: 04/20/2024, Expires: Start: 04-20-2024 End: 07-20-2024 Thyrotropin [Units/volume] in Serum or Plasma THYROID STIMULATING HORMONE Lab Routine Abnormal menses Acquired hypothyroidism Expected: 04/20/2024, Expires: 07/20/2024 [facility] Comment on above: Expected: 04/20/2024, Expires: Start: 04-20-2024 End: 07-20-2024 Thyroxine (T4) free [Mass/volume] in Serum or Plasma T4 FREE/FREE THYROXINE Lab Routine Abnormal menses Acquired hypothyroidism Expected: 04/20/2024, Expires: 07/20/2024 [facility] Comment on above: Expected: 04/20/2024, Expires: Start: 04-20-2024 End: 07-20-2024 Triiodothyronine (T3) Free [Mass/volume] in Serum or Plasma T3, FREE Lab Routine Abnormal menses Acquired hypothyroidism Expected: 04/20/2024, Expires: 07/20/2024 [facility] Comment on above: Expected: 04/20/2024, Expires: Start: 04-20-2024 End: 04-20-2024 Patient encounter procedure 04/20/2024 11:20 AM EDT Office Visit Internal Medicine [place] [address] [place] [address] Judith Howell APRN.RETURNS SUPERVISOR [address] [place] [address] spotting over two weeks [facility] [place] Comment on above: spotting over two weeks Start: 04-10-2024 Covid-19 Vaccine ( season) Covid-19 Vaccine () [facility] Start: 04-10-2024 Covid-19 Vaccine () Covid-19 Vaccine () [facility] Start: 04-10-2024 Influenza vaccination [facility] Start: 03-01-2024 End: 03-01-2024 ambulatory Hematology/Oncology Comment on above: BCR/ABL P210 and P190 in 2 months and th en an OV with Dr. Uribe 1 week after labs. CBC* Start: 02-23-2024 End: 02-23-2024 ambulatory 02/23/2024 8:30 AM EDT Results [facility] [address] [place] [address] BCR/ABL P210 and P190 [facility] Comment on above: BCR/ABL P210 and P190 Start: 02-07-2024 Influenza vaccination Influenza Vaccine (#1) [facility] Comment on above: Postponed from 04/10/2023 (Declined at t his time) Start: 12-29-2023 End: 12-29-2023 ambulatory 12/29/2023 8:30 AM EDT Results Only [place] [facility] [address] [place] [address] Q2WK CBC/CMP/ #2-4 [facility] Comment on above: Q2WK CBC/CMP/ #2-4 Start: 12-23-2023 End: 12-23-2023 ambulatory 12/23/2023 8:20 AM EDT Visit (SP) Office Hematology/Oncology [address] [place] [address] [place] [address] [place] [address] 1MO OV/LABS EARLY/ ON SPRYCEL* Hematology/Oncology Comment on above: 1MO OV/LABS EARLY/ ON SPRYCEL* Start: 12-22-2023 DIABETES SCREEN DIABETES SCREEN [facility] Start: 12-17-2023 End: 03-17-2024 Cobalamin (Vitamin B12) [Mass/volume] in Serum or Plasma VITAMIN B12 Lab Routine Numbness and tingling Expected: 12/17/2023, Expires: 03/17/2024 [facility] Comment on above: Expected: 12/17/2023, Expires: Start: 12-17-2023 End: 03-17-2024 Thyrotropin [Units/volume] in Serum or Plasma THYROID STIMULATING HORMONE Lab Routine Numbness and tingling Acquired hypothyroidism Expected: 12/17/2023, Expires: 03/17/2024 [facility] Comment on above: Expected: 12/17/2023, Expires: Start: 12-17-2023 End: 03-17-2024 Thyroxine (T4) free [Mass/volume] in Serum or Plasma T4 FREE/FREE THYROXINE Lab Routine Numbness and tingling Acquired hypothyroidism Expected: 12/17/2023, Expires: 03/17/2024 [facility] Comment on above: Expected: 12/17/2023, Expires: Start: 12-17-2023 End: 12-17-2023 Patient encounter procedure 12/17/2023 10:20 AM EDT Office Visit Internal Medicine [place] [address] [facility] [place] [id number] Judith Howell APRN.RETURNS SUPERVISOR [address] [facility] [place] [id number] 3 month follow up [facility] [place] Comment on above: 3 month follow up Start: 12-15-2023 End: 12-15-2023 ambulatory 12/15/2023 8:30 AM EDT Results Only [facility] [address] [facility] [place] [address] Q2WK CBC/CMP/ #2-4 [facility] Comment on above: Q2WK CBC/CMP/ #2-4 Start: 10-28-2023 End: 01-27-2024 BCR-ABL1 kinase domain mutations found [Identifier] in Blood or Tissue by Molecular genetics method Nominal BCR/ABL KINASE DOMAIN Lab Routine CML (chronic myeloid leukemia) (HCC) Expected: 10/28/2023, Expires: 01/27/2024 [facility] Work Phone: Comment on above: Expected: 10/28/2023, Expires: Start: 10-23-2023 ANNUAL PCP TEAM CHRONIC DISEASE VISIT ANNUAL PCP TEAM CHRONIC DISEASE VISIT [facility] Start: 10-23-2023 BP CONTROLLED (<130/80) BP CONTROLLED (<130/80) [facility] Start: 09-26-2023 BP CONTROLLED (<130/80) BP CONTROLLED (<130/80) [facility] Start: 09-10-2023 ANNUAL PCP TEAM CHRONIC DISEASE VISIT ANNUAL PCP TEAM CHRONIC DISEASE VISIT [facility] Start: 08-10-2023 Depression Assessment Depression Assessment [facility] Start: 06-07-2023 PAP TESTING PAP TESTING [facility] Start: 05-26-2023 End: 07-26-2023 Lipid 1996 panel - Serum or Plasma LIPID PANEL BASIC Lab Routine High triglycerides Expected: 05/26/2023, Expires: 07/26/2023 [facility] Work Phone: Comment on above: Expected: 05/26/2023, Expires: 3 Start: 05-26-2023 End: 07-26-2023 Thyrotropin [Units/volume] in Serum or Plasma TSH BLD Lab Routine Acquired hypothyroidism Medication management Expected: 05/26/2023, Expires: 07/26/2023 [facility] Work Phone: Comment on above: Expected: 05/26/2023, Expires: 3 Start: 05-26-2023 End: 07-26-2023 Thyroxine (T4) free [Mass/volume] in Serum or Plasma T4 FREE/FREE THYROX Lab Routine Acquired hypothyroidism Medication management Expected: 05/26/2023, Expires: 07/26/2023 [facility] Work Phone: Comment on above: Expected: 05/26/2023, Expires: 3 Start: 04-10-2023 Covid-19 Vaccine () Covid-19 Vaccine () [facility] Start: 04-10-2023 Influenza vaccination [facility] Start: 04-02-2023 End: 06-02-2023 BCR/ABL1 P210 AND P190 DIAGNOSTIC PCR BLOOD [facility] Work Phone: Comment on above: Expected: 04/02/2023, Expires: 3 Start: 04-02-2023 End: 06-02-2023 CBC W Auto Differential panel - Blood [facility] Work Phone: Comment on above: Expected: 04/02/2023, Expires: 3 Start: 04-02-2023 End: 06-02-2023 MYELOID NGS PANEL PERIPHERAL BLOOD [facility] Work Phone: Comment on above: Expected: 04/02/2023, Expires: 3 Start: 04-01-2023 Troponin I measurement [facility] Start: 04-01-2023 [facility] Start: 02-24-2023 End: 04-26-2023 Basic metabolic 2000 panel - Serum or Plasma BASIC METABOLIC PNL Lab Routine Benign hypertension Expected: 02/24/2023, Expires: 04/26/2023 [facility] Work Phone: Comment on above: Expected: 02/24/2023, Expires: 3 Start: 02-24-2023 End: 04-26-2023 Lipid 1996 panel - Serum or Plasma LIPID PANEL BASIC Lab Routine Benign hypertension Expected: 02/24/2023, Expires: 04/26/2023 [facility] Work Phone: Comment on above: Expected: 02/24/2023, Expires: 3 Start: 01-02-2023 Adult depression screening assessment DEPRESSION SCREENING [facility] Start: 01-02-2023 ANNUAL PCP TEAM CHRONIC DISEASE VISIT ANNUAL PCP TEAM CHRONIC DISEASE VISIT [facility] Start: 01-02-2023 BP CONTROLLED (<130/80) BP CONTROLLED (<130/80) [facility] in Start: 01-02-2023 COLORECTAL CANCER SCREENING COLORECTAL CANCER SCREENING [facility] Comment on above: Postponed from 01/24/2017 (Declined at t his time) Start: 01-02-2023 HEPATITIS C SCREENING HEPATITIS C SCREENING [facility] Comment on above: Postponed from 01/24/1990 (Declined at t his time) Start: 01-02-2023 HIV SCREENING HIV SCREENING [facility] Comment on above: Postponed from 01/24/1990 (Declined at t his time) Start: 01-02-2023 HPV TESTING HPV TESTING [facility] Comment on above: Postponed from 01/24/2002 (Declined at t his time) Start: 01-02-2023 Urine microalbumin profile DTAP,TDAP,TD (1 - Tdap) [facility] Comment on above: Postponed from 01/24/1991 (Declined at t his time) Start: 09-03-2022 LIPID SCREEN LIPID SCREEN [facility] Start: 08-10-2022 DEPRESSION ASSESSMENT DEPRESSION ASSESSMENT [facility] Start: 07-31-2022 COVID-19 VACCINE (6 - Moderna risk series) COVID-19 VACCINE (6 - Moderna risk series) [facility] Start: 06-18-2022 End: 08-18-2022 Comprehensive metabolic 2000 panel - Serum or Plasma COMP METABOLIC PANEL Lab Routine Lipid screening Benign hypertension Expected: 06/18/2022 (Approximate), Expires: 08/18/2022 [facility] Work Phone: Comment on above: Expected: 06/18/2022 (Approximate), Expi res: 08/18/2022 Start: 06-18-2022 End: 08-18-2022 LIPID PANEL BASIC LIPID PANEL BASIC Lab Routine Lipid screening Expected: 06/18/2022 (Approximate), Expires: 08/18/2022 [facility] Work Phone: Comment on above: Expected: 06/18/2022 (Approximate), Expi res: 08/18/2022 Start: 04-10-2022 Influenza vaccination [facility] Start: 02-05-2022 ANNUAL PCP TEAM CHRONIC DISEASE VISIT ANNUAL PCP TEAM CHRONIC DISEASE VISIT [facility] Start: 01-24-2022 COVID-19 VACCINE (4 - Booster for Moderna series) COVID-19 VACCINE (4 - Booster for Moderna series) [facility] Start: 01-24-2022 SHINGRIX VACCINE (1 of 2) SHINGRIX VACCINE (1 of 2) [facility] Start: 01-17-2022 Screening for malignant neoplasm of cervix Cervical Cancer Screening [facility] Start: 12-22-2021 Adult depression screening assessment DEPRESSION SCREENING [facility] Start: 12-17-2021 End: 02-16-2022 Basic metabolic 2000 panel - Serum or Plasma BASIC METABOLIC PNL Lab Routine Benign hypertension Expected: 12/17/2021, Expires: 02/16/2022 [facility] Work Phone: Comment on above: Expected: 12/17/2021, Expires: 2 Start: 12-17-2021 End: 02-16-2022 SCHEDULE LAB TESTING SCHEDULE LAB TESTING Lab Routine Expected: 12/17/2021, Expires: 02/16/2022 [facility] Work Phone: Comment on above: Expected: 12/17/2021, Expires: 2 Start: 12-17-2021 End: 02-16-2022 Thyrotropin [Units/volume] in Serum or Plasma TSH BLD Lab Routine Acquired hypothyroidism Expected: 12/17/2021, Expires: 02/16/2022 [facility] Work Phone: Comment on above: Expected: 12/17/2021, Expires: 2 Start: 09-05-2021 COVID-19 VACCINE (4 - Booster for Moderna series) COVID-19 VACCINE (4 - Booster for Moderna series) [facility] Start: 05-01-2021 COVID-19 VACCINE (3 - Booster for Moderna series) COVID-19 VACCINE (3 - Booster for Moderna series) [facility] Start: 05-01-2021 Urine microalbumin profile DTaP,Tdap,Td Vaccine (2 - Td or Tdap) [facility] Start: 04-10-2021 Influenza vaccination INFLUENZA (#1) [facility] Start: 03-05-2018 Mammography [facility] Start: 03-05-2018 Screening for malignant neoplasm of breast Mammogram Screening [facility] Start: 01-24-2017 COLOGUARD (FIT-DNA) COLOGUARD (FIT-DNA) [facility] Start: 01-24-2017 Colonoscopy COLONOSCOPY [facility] Start: 01-24-2017 COLORECTAL CANCER SCREENING COLORECTAL CANCER SCREENING [facility] Start: 01-24-[address] COLONOGRAPHY [facility] Start: 01-24-2017 FECAL OCCULT BLOOD FECAL OCCULT BLOOD [facility] Start: 01-24-2017 Screening for malignant neoplasm of colon [facility] Start: 01-24-2017 SIGMOIDOSCOPY SIGMOIDOSCOPY [facility] Start: 2012 Screening for malignant neoplasm of breast Mammogram [facility] Start: 01-24-2002 HPV TESTING HPV TESTING [facility] Start: 01-24-2002 Screening for malignant neoplasm of cervix [facility] Start: 01-24-1993 Screening for malignant neoplasm of cervix Pap Smear [facility] Start: 01-24-1991 Hepatitis B Vaccine (1 of 3 - 19+ 3-dose series) Hepatitis B Vaccine (1 of 3 - 19+ 3-dose series) [facility] Start: 01-24-1991 Pneumococcal Vaccine: 50+ (1 of 2 - PCV) Pneumococcal Vaccine: 50+ (1 of 2 - PCV) [facility] Start: 01-24-1991 SHINGRIX VACCINE (1 of 2) SHINGRIX VACCINE (1 of 2) [facility] Start: 01-24-1991 Urine microalbumin profile [facility] marvin Start: 01-24-1990 Anxiety Screening Anxiety Screening [facility] Start: 01-24-1990 BP CONTROLLED (<130/80) BP CONTROLLED (<130/80) [facility] in Start: 01-24-1990 Depression Screening Depression Screening [facility] Start: 01-24-1990 HEPATITIS C SCREENING HEPATITIS C SCREENING [facility] Start: 01-24-1990 HIV SCREENING HIV SCREENING [facility] Start: 01-24-1990 HIV screening HIV Screening [facility] Start: 01-24-1978 PNEUMOCOCCAL (1 - PCV) PNEUMOCOCCAL (1 - PCV) [facility] ic Start: 01-24-1978 Pneumococcal vaccination [facility] c Start: 1972 HEPATITIS B (1 of 3 - 3-dose series) HEPATITIS B (1 of 3 - 3-dose series) [facility] Start: 1972 Hepatitis B Vaccine (1 of 3 - 3-dose series) Hepatitis B Vaccine (1 of 3 - 3-dose series) [facility] Start: 1970 Screening for malignant neoplasm of colon [facility] End: 05-26-2024 BCR/ABL1 P190 QUANTITATIVE PCR BLOOD BCR/ABL1 P190 QUANTITATIVE PCR BLOOD Lab Routine CML (chronic myeloid leukemia) (HCC) Every 3 months for 4 Occurrences starting 05/27/2023 until 05/26/2024 [facility] Work Phone: Comment on above: Every 3 months for 4 Occurrences startin g 05/27/2023 until 05/26/2024 End: 05-26-2024 BCR/ABL1 P210 QUANTITATIVE PCR BLOOD BCR/ABL1 P210 QUANTITATIVE PCR BLOOD Lab Routine CML (chronic myeloid leukemia) ([facility]) Every 3 months for 4 Occurrences starting 05/27/2023 until 05/26/2024 [facility] Work Phone: Comment on above: Every 3 months for 4 Occurrences startin g 05/27/2023 until 05/26/2024 End: 03-01-2025 BCR/ABL1 P210 QUANTITATIVE PCR BLOOD BCR/ABL1 P210 QUANTITATIVE PCR BLOOD Lab Routine CML (chronic myeloid leukemia) ([facility]) Every 3 months for 4 Occurrences starting 03/01/2024 until 03/01/2025 [facility] Work Phone: Comment on above: Every 3 months for 4 Occurrences startin g 03/01/2024 until 03/01/2025 BONE MARROW ANALYSIS BONE MARROW ANALYSIS Lab Routine Leukemoid reaction 04/02/2023 1:39 PM EDT [facility] Work Phone: End: 10-26-2024 CBC W Auto Differential panel - Blood CBC + DIFF Lab Routine CML (chronic myeloid leukemia) ([facility]) Every other week for 4 Occurrences starting 10/27/2023 until 10/26/2024 [facility] Work Phone: Comment on above: Every other week for 4 Occurrences start ing 10/27/2023 until 10/26/2024 End: 10-26-2024 Comprehensive metabolic 2000 panel - Serum or Plasma COMP METABOLIC PANEL Lab Routine CML (chronic myeloid leukemia) ([facility]) Every other week for 4 Occurrences starting 10/27/2023 until 10/26/2024 [facility] Work Phone: Comment on above: Every other week for 4 Occurrences start ing 10/27/2023 until 10/26/2024 End: 12-05-2023 CHRIS SCREENING CHRIS SCREENING Radiology Routine Encounter for screening mammogram for breast cancer 1 Occurrences starting 11/05/2022 until 12/05/2023 [facility] Work Phone: Comment on above: 1 Occurrences starting 11/05/2022 until 12/05/2023 End: 11-12-2024 MG Breast Screening CHRIS SCREENING Radiology Routine Encounter for screening mammogram for breast cancer 1 Occurrences starting 10/14/2023 until 11/12/2024 [facility] Work Phone: Comment on above: 1 Occurrences starting 10/14/2023 until 11/12/2024 OFFICE HYSTEROSCOPY OFFICE HYSTE ROSCOPY Procedures Routine Endometrial thickening on ultrasound Ordered: 09/29/2024 [facility] Comment on above: Ordered: 09/29/2024 Patient Education What Is Leukem ia? ED Chest Pain, Uncertain Cause [facility] Work Phone: Patient referral [facility] Work Phone: End: 09-10-2023 Screening colonoscopy COLONOSCOPY SCREENING Endoscopy Routine Special screening for malignant neoplasms, colon 1 Occurrences starting 09/10/2022 until 09/10/2023 [facility] Work Phone: Comment on above: 1 Occurrences starting 09/10/2022 until 09/10/2023 End: 01-03-2023 Screening mammography bi 2-view breast inc cad CHRIS SCREENING Radiology Routine Encounter for screening mammogram for breast cancer 1 Occurrences starting 12/04/2021 until 01/03/2023 [facility] Work Phone: Comment on above: 1 Occurrences starting 12/04/2021 until 01/03/2023 THINPREP IMAGING PAP W/REFL HPV MRNA E6/E7 THINPREP IMAGING PAP W/REFL HPV MRNA E6/E7 Pathology and Cytology Routine Routine cervical smear Ordered: 06/17/2024 [facility] Work Phone: Comment on above: Ordered: 06/17/2024 Tissue Pathology bio psy report SURGICAL PATHOLOGY Lab Routine Endometrial thickening on ultrasound 09/29/2024 10:56 AM EST [facility] UA DIP,URINE HCG (POC) UA DIP,UR INE HCG (POC) Lab Routine Endometrial thickening on ultrasound Ordered: 09/29/2024 [facility] Work Phone: Comment on above: Ordered: 09/29/2024 End: 07-21-2025 US Pelvis limited US FEMALE PELVIS TRANSABD LTD Radiology Routine Spotting 1 Occurrences starting 06/21/2024 until 07/21/2025 [facility] Work Phone: Comment on above: 1 Occurrences starting 06/21/2024 until 07/21/2025 US Pelvis limited US FEMALE PELV IS TRANSABD LTD Radiology Routine Spotting 07/01/2024 8:55 AM EST [facility] Work Phone: End: 07-21-2025 US Pelvis transvaginal US FEMALE PELVIS TRANSVAG Radiology Routine Spotting 1 Occurrences starting 06/21/2024 until 07/21/2025 [facility] Comment on above: 1 Occurrences starting 06/21/2024 until 07/21/2025 US Pelvis transvaginal US FEMALE PELVIS TRANSVAG Radiology Routine Spotting 07/01/2024 8:55 AM EST [facility] End: 01-15-2025 XR Pelvis and Hip - left AP and Lateral frog XR HIP GENERAL 3V PELV/AP/LAT LEFT Radiology Routine Left hip pain 1 Occurrences starting 12/17/2023 until 01/15/2025 [facility] Work Phone: Comment on above: 1 Occurrences starting 12/17/2023 until 01/15/2025 XR Pelvis and Hip - left AP and Lateral frog XR HIP GENERAL 3V PELV/AP/LAT LEFT Radiology Routine Left hip pain 12/17/2023 11:27 AM EDT [facility] XR Thoracic and lumb ar spine Views for scoliosis W standing XR SCOLIOSIS PA STAND/LAT 2V Radiology Routine Scoliosis, unspecified scoliosis type, unspecified spinal region 06/21/2024 11:32 AM EST [facility] Work Phone: End: 07-21-2025 XR Thoracic and lumbar spine Views for scoliosis W standing XR SCOLIOSIS PA STAND/LAT 2V Radiology Routine Scoliosis, unspecified scoliosis type, unspecified spinal region 1 Occurrences starting 06/21/2024 until 07/21/2025 [facility] Comment on above: 1 Occurrences starting 06/21/2024 until 07/21/2025 [facility] Immunizations Immunization Date Immunization Notes Care Provider Fa baldo 06-25-2021 influenza, injectabl e, quadrivalent, preservative free Judith Older [employer] Work Phone: [facility] 06-25-2021 influenza virus vacc ine, unspecified formulation Annie Alba RN Work Phone: [facility] 11-01-2020 COVID-19 vaccine, fu ll dose (MODERNA) Yani Fulton [employer] Work Phone: [facility] 04-23-2020 influenza, injectabl e, quadrivalent, contains preservative Judith Older [employer] Work Phone: [facility] 05-27-2019 influenza, injectabl e, quadrivalent, preservative free Judith Older [employer] SUPERVIS[employer] Work Phone: [facility] 06-04-2018 influenza, injectabl e, quadrivalent, preservative free Judith Older [employer]NS SUPERVIS[employer] Work Phone: [facility] 06-04-2016 influenza, injectabl e, quadrivalent, preservative free Judith Older [employer]NS SUPERVIS[employer] Work Phone: [facility] 06-06-2015 influenza, injectabl e, quadrivalent, preservative free Judith Older [employer]NS SUPERVIS[employer] Work Phone: [facility] 05-02-2011 measles, mumps and rubella virus vaccine Judith Older BLIND L[employer].[facility] Work Phone: [facility] 05-01-2011 tetanus toxoid, redu nelli diphtheria toxoid, and acellular pertussis vaccine, adsorbed Judith Older BL[employer].[facility] Work Phone: [facility] Payers Date Payer Category Payer Self-pay 2023 Private Health Insurance [id number] 2023 Managed Care HMO (unspecified) [employer] [id number] 2019 Private Health Insurance [employer] A ETNA CHOICE POS II [id number] 2019-Present [phone] [address] [place] [address] POS [id number] 2019 Private Health Insurance [id number] 1972 Unknown [id number] Private Health Insurance [employer] [id number] Unknown [id number] Social History Date Type Detail Facility Start: 11-16-2015 End: 09-10-2022 Tobacco smoking status NYIS Never smoked tobacco [facility] Start: 11-16-2015 End: 09-10-2022 Tobacco use and exposure Smokeless tobacco non-user [facility] Start: 12-25-2020 End: 09-10-2022 Alcohol intake Not Asked [facility] Start: 12-23-2020 End: 09-09-2022 History SDOH Alcohol Frequency 3 [facility] Start: 12-23-2020 End: 09-09-2022 History SDOH Alcohol Std Drinks 1 [facility] Start: 12-23-2020 End: 09-09-2022 History SDOH Social Connections Membership 2 [facility] Start: 12-23-2020 End: 09-09-2022 History SDOH Physical Activity DPW 5 [facility] Start: 12-22-2020 Education 17 [facility] Start: 1970 Sex Assigned At Female [facility] Work Phone: Start: 11-26-2021 End: 12-06-2021 Exposure to SARS-CoV-2 (event) Not sure [facility] Work Phone: Start: 01-01-2022 End: 09-09-2022 History SDOH Social Connections Phone 4 [facility] Start: 01-01-2022 End: 09-09-2022 History SDOH Social Connections Get Together 98 [facility] Start: 01-01-2022 History SDOH Physical Activity DPW 7 [facility] Start: 09-09-2022 History SDOH Physical Activity MPS 6 [facility] Start: 09-26-2022 End: 09-10-2023 Alcohol intake Current drinker of alcohol (finding) [facility] Start: 09-26-2022 Alcohol Comment rarely [facility] Start: 09-09-2022 End: 03-11-2023 History of Social function [facility] Start: 09-09-2022 End: 03-11-2023 Social connection and isolation panel [facility] How often do you get together with friends or relatives? Patient refused [facility] Do you belong to any clubs or organizations such as taoist groups, unions, fraternal or athletic groups, or school groups? No [facility] Are you now , , , , never or living with a partner? [facility] How often to you hav e a drink containing alcohol? Monthly or less [facility] How many standard dr inks containing alcohol do you have on a typical day? 1 or 2 [facility] How often do you hav e 6 or more drinks on 1 occasion? Never [facility] Do you feel stress - tense, restless, nervous, or anxious, or unable to sleep at night because your mind is troubled all the time - these days [OSQ] Only a little [facility] (I/We) worried whesam er (my/our) food would run out before (I/we) got money to buy more. Never true [facility] Start: 03-13-2017 Gender identity Identifies as female gender (finding) [facility] Work Phone: Start: 03-13-2017 Sexual orientation Heterosexual (finding) [facility] Work Phone: Start: 04-01-2023 Tobacco smoking status NHIS Unknown if ever smoked [facility] Do you feel stress - tense, restless, nervous, or anxious, or unable to sleep at night because your mind is troubled all the time - these days [OSQ] Rather much [facility] Start: 03-01-2024 End: 09-29-2024 Alcohol intake Ex-drinker (finding) [facility] Start: 1970 Sex assigned at Not on file [facility] Functional Status Date Assessment Result Facility 09-22-2024 Total score [AUDIT-C] 1 09/22/19 11:29 PM EST User, Charly [facility] 09-22-2024 Within the last year , have you been humiliated or emotionally abused in other ways by your partner or ex-partner? No 09/22/2024 11:29 PM EST [facility] 09-22-2024 Within the last year , have you been afraid of your partner or ex-partner? No 09/22/2024 11:29 PM EST [email or web address] 09-22-2024 Within the last year , have you been raped or forced to have any kind of sexual activity by your partner or ex-partner? No 09/22/2024 11:29 PM EST [facility] 09-22-2024 Within the last year , have you been kicked, hit, slapped, or otherwise physically hurt by your partner or ex-partner? No 09/22/2024 11:29 PM EST User, [email or web address] No [facility] 09-22-2024 How often to you hav e a drink containing alcohol? Monthly or less 09/22/2024 11:29 PM EST User, [email or web address] Monthly or less [facility] 09-22-[address] inks containing alcohol do you have on a typical day? 1 or 2 09/22/2024 11:29 PM EST User, [email or web address] 1 or 2 [facility] 09-22-2024 How often do you hav e 6 or more drinks on 1 occasion? Never 09/22/2024 11:29 PM Charly Cross Never [facility] 09-10-2022 Are you deaf, or do you have serious difficulty hearing No 09/10/2022 11:47 AM Eden Mohamud MD No [facility] 09-10-2022 Are you blind, or do you have serious difficulty seeing, even when wearing glasses No 09/10/2022 11:47 AM Eden Mohamud MD No [facility] 09-10-2022 Do you have serious difficulty walking or climbing stairs No 09/10/2022 11:47 AM Eden Mohamud MD No [facility] 09-10-2022 Do you have difficul ty dressing or bathing No 09/10/2022 11:47 AM Eden Mohamud MD No [facility] 09-10-2022 Because of a physica l, mental, or emotional condition, do you have difficulty doing errands alone such as visiting a physician's office or shopping No 09/10/2022 11:47 AM Eden Mohamud MD [facility] Mental Status Date Assessment Result Facility 04-01-2023 Cognitive function Level Of Cons ciousness Awake;Alert;Appropriate;Fol lows Commands [facility] Work Phone: 09-10-2022 Because of a physica l, mental, or emotional condition, do you have serious difficulty concentrating, remembering, or making decisions No 09/10/2022 11:47 AM Eden Mohamud MD No [facility] Clinical Notes 03-13-2017 to 12-12-2024 Prince Uribe MD - 12/12/2024 8:34 AM EDTTelephone Encounter - Annie Alba RN - 11/14/2024 2:37 PM EDTTelephone Encounter - Annie Alba RN - 11/14/2024 2:37 PM EDTPatient Instructions Note Date & Type Note Facility 12-12-2024 Note HNO ID: [id number] Author: PRINCE URIBE MD Service: ? Author [...] guidelines. Discussed case [facility] CLINICAL IMPRESSION: CML chronic phase Currently in [...] HISTORY Procedure Laterality Date SECTION HX 01/2013 [facility] CHOLECYSTECTOMY 2009 [facility] HERNIA REPAIR HX 11/2013 Dr Hurtado - [facility] LAPAROSCOPY REPAIR INCISIONAL HERNIA REDUCIBLE 07/2013 [facility] FAMILY HISTORY Problem Relation Age of [...] which included preparing to see the patient, [id number] patient care, completing clinical documentation, obtaining and/or reviewing separately obtained history, counseling and educating the patient/family/caregiver, ordering medications, tests, or procedures, communicating with other HCPs (not separately reported), independently interpreting results (not separately reported), communicating results to the patient/family/caregiver, and care coordination (not separately reported). Discussion with Dr Ngo Electronically Signed: Prince Uribe MD December 12, 2024 [facility] 12-12-2024 History of Present illness Narrative (Elements [...] guidelines. Discussed case with [facility] CLINICAL IMPRESSION: CML chronic phase Currently in [...] HISTORY Procedure Laterality Date SECTION HX 01/2013 [facility] CHOLECYSTECTOMY 2009 [facility] HERNIA REPAIR HX 11/2013 Dr Hurtado - [facility] LAPAROSCOPY REPAIR INCISIONAL HERNIA REDUCIBLE 07/2013 [facility] FAMILY HISTORY Problem Relation Age of [...] which included preparing to see the patient, [id number] patient care, completing clinical documentation, obtaining and/or reviewing separately obtained history, counseling and educating the patient/family/caregiver, ordering medications, tests, or procedures, communicating with other HCPs (not separately reported), independently interpreting results (not separately reported), communicating results to the patient/family/caregiver, and care coordination (not separately reported). Discussion with Dr Ngo Electronically Signed: Prince Uribe MD December 12, 2024 documented in this encounter [facility] 11-29-2024 Note HNO ID: [id number] Author: ?, ?, ? Service: ? Author Type: ? Type: Progress Notes Filed: 12/29/2024 03:03 Note Text: Spoke with patient and she had to schedule some appointments for her mother but she will call back to schedule when she is ready. [facility] 11-28-2024 Note Patient Outreach ( WSTR) ROSALINDA RUSSO ([id number]) 1970 F Date Time Provider Department 11/28/24 [...] patients buy sugar-fr (more content not included)... [facility] 11-14-2024 Telephone encounter Note PSS: patient due labs end of November and would like to schedule follow up with Dr. Uribe 1 week later. She is wanting to schedule OV first. Can you assist please. Nadia Alba RN [facility] Work Phone: 11-14-2024 Miscellaneous Notes PSS: patient due labs end of November and would like to schedule follow up with Dr. Urieb 1 week later. She is wanting to schedule OV first. Can you assist please. Nadia Alba RN documented in this encounter [facility] 10-28-2024 Telephone encounter Note Prescription Refill [...] Sparks LPN October 28, 2024 8:05 AM [facility] 10-28-2024 Miscellaneous Notes Prescription Refill Information [...] 2024 8:05 AM documented in this encounter [facility] 10-14-2024 Telephone encounter Note Prescription Refill [...] Crowe LPN October 14, 2024 9:24 AM [facility] 10-14-2024 Miscellaneous Notes Prescription Refill Information [...] 2024 9:24 AM documented in this encounter [facility] 10-02-2024 Note HNO ID: [id number] Author: BRAD LEONE MD Service: ? Author Type: Physician Type: Progress Notes Filed: 10/02/2024 00:26 Note Text: The patient presents for requested ultrasound. Full report available in the Imaging tab in Imaging3. Brad Leone MD [facility] 10-02-2024 History of Present illness Narrative The patient presents for requested ultrasound. Full report available in the Imaging tab in Imaging3. Brad Leone MD documented in this encounter [facility] 09-29-2024 Instructions Jessica Lo MA - [...] contact the office. documented in this encounter [facility] 09-29-2024 Note HNO ID: [id number] Author: MARGA CROWE MD Service: ? Author [...] symptoms return and consider in OR hysteroscopy DANWY Marga Crowe MD [facility] 09-29-2024 History of Present illness Narrative Rosalinda [...] Marga Crowe MD documented in this encounter [facility] 09-27-2024 Telephone encounter Note Patient has [...] Please advise. Thank you. Ember Fuller LPN. [facility] 09-27-2024 Miscellaneous Notes Patient has been [...] Ember Fuller LPN. documented in this encounter [facility] 09-23-2024 Note HNO ID: [id number] Author: EDEN PETERSEN MD Service: ? Author Type: Physician Type: Progress Notes Filed: 09/23/2024 12:48 Note Text: Reason for Visit Patient presents with: F/U 3 Month Rosalinda Russo is a 52 year old female who presents here today for Above Complaints.. Health Maintenance HEPATITIS B(1 of 3 - 3-dose series) MAMMOGRAM SHINGRIX VACCINE(1 of 2) INFLUENZA(1) LIPID SCREEN HPI Jessiac is a very pleasant 54-year-old with a past medical history of hypertension, anxiety depression and hypothyroidism. Recently she was diagnosed with Chronic myeloid leukemia. Here to talk about her periods cessation and few other issues She has a manager psychiatry in [place], sees him yearly. Her periods were very [...] bloating, easy satiety, abdominal pain, or other manager psychiatry symptoms She does have some hot flashes, [...] regularly. 09/23/24: followed up for spotting with APPLICATION DEVELOPER who performed US and will have a [...] [facility]ISTORY Procedure Later[facility] Date [facility] RE[facility]/2013 Dr Hurtado - [facility] LAPAROSCOPY REPAIR INCISIONAL HERNIA REDUCIBLE 07/2013 [facility] [place] FAMILY HISTORY Problem Relation Age of Onset [...] stool habits, hem (more content not included)... [facility] 09-23-2024 History of Present illness Narrative Reason [...] and few other issues She has a manager psychiatry in [place], sees him yearly. Her periods were very [...] bloating, easy satiety, abdominal pain, or other manager psychiatry symptoms She does have some hot flashes, [...] regularly. 09/23/24: followed up for spotting with APPLICATION DEVELOPER who performed US and will have a [...] HISTORY Procedure Laterality Date SECTION HX 01/2013 [facility] CHOLECYSTECTOMY 2009 [facility] HERNIA REPAIR HX 11/2013 Dr Hurtado - [facility] LAPAROSCOPY REPAIR INCISIONAL [facility]ERNIA REDUC[facility] Problem Relation Age of [...] Eden Petersen MD documented in this encounter [facility] 09-13-2024 Telephone encounter Note Darion Tellez, I heard back from Dr Ngo our CML expert at [facility], he agrees to continue dasatinib at current dose, and recheck PCR in 3 months. We can adjust things then if needed. Dr Perez [facility] 09-13-2024 Miscellaneous Notes Darion Tellez, I heard back from Dr Ngo our CML expert at [facility], he agrees to continue dasatinib at current dose, and recheck PCR in 3 months. We can adjust things then if needed. Dr Perez documented in this encounter [facility] 09-13-2024 Note HNO ID: [id number] Author: PRINCE URIBE MD Service: ? Author [...] guidelines. Reviewed September 2024 labs with main tow CLINICAL IMPRESSION: CML chronic phase Currently in [...] HISTORY Procedure Laterality Date SECTION HX 01/2013 [facility] CHOLECYSTECTOMY 2009 [facility] HERNIA REPAIR HX 11/2013 Dr Hurtado - [facility] LAPAROSCOPY REPAIR INCISIONAL HERNIA REDUCIBLE 07/2013 [facility] FAMILY HISTORY Problem Relation Age of [...] other than HPI. PHYSICAL EXAMINATION: VITAL SIGNS: [facility] 10/14/2023 GENERAL APPEARANCE: Well appearing, in no acute distress, alert and oriented x3, well-hydrated, well nourished. I spent a total of 30 minutes on the date of the service which included preparing to see the patient, [id number] patient care, completing clinical documentation, obtaining and/or reviewing separately obtained history, counseling and educating the patient/family/caregiver, ordering medications, tests, or procedures, communicating with other HCPs (not separately reported), independently interpreting results (not separately reported), communicating results to the patient/family/caregiver, and care coordination (not separately reported). And discussion with main campus CML team. Electronically Signed: Prince Uribe MD September 13, 2024 [facility] 09-13-2024 History of Present illness Narrative (Elements [...] NCCN guidelines. Reviewed September 2024 [facility] with [facility] CLINICAL IMPRESSION: CML chronic phase Currently in hematologic remission PCR remains positive, stable, but we see adequate response thus far to dasatinib RECOMMENDATION/PLAN: 1. Continue dasatinib. PCR testing 3 [facility] per [facility]. Written and verbal health teaching given to patient, patient verbalizes understanding and agrees with treatment plan. PAST MEDICAL HISTORY Diagnosis Date Benign hypertension 09/03/2017 Hypothyroid Rosacea PAST SURGICAL HISTORY Procedure Laterality Date SECTION HX 01/2013 [facility] CHOLECYSTECTOMY 2009 [facility] HERNIA REPAIR HX 11/2013 Dr Hurtado - [facility] LAPAROSCOPY REPAIR INCISIONAL HERNIA REDUCIBLE 07/2013 [facility] FAMILY HISTORY Problem Relation Age of [...] other than HPI. PHYSICAL EXAMINATION: VITAL SIGNS: [facility] 10/14/2023 GENERAL APPEARANCE: Well appearing, in no acute distress, alert and oriented x3, well-hydrated, well nourished. I spent a total of 30 minutes on the date of the service which included preparing to see the patient, [id number] patient care, completing clinical documentation, obtaining and/or reviewing separately obtained history, counseling and educating the patient/family/caregiver, ordering medications, tests, or procedures, communicating with other HCPs (not separately reported), independently interpreting results (not separately reported), communicating results to the patient/family/caregiver, and care coordination (not separately reported). And discussion with [facility] CML team. Electronically Signed: Prince Uribe MD September 13, 2024 documented in this encounter [facility] 09-06-2024 Note HNO ID: [id number] Author: NEGRO DAWSON PT Service: ? Author [...] Stop Time : 1355 Negro Dawson PT [facility] 09-06-2024 History of Present illness Narrative Episode [...] Stop Time : 1355 Negro Dawson PT Program_ID:[id number] Access Code: [email or web address] URL: [email or web address] Date: 09-06-2024 Prepared By: Negro Dawson Program [...] - 10 reps documented in this encounter [facility] 09-05-2024 Instructions Sandra Wallace LPN - [...] contact the office. documented in this encounter [facility] 09-05-2024 Note HNO ID: [id number] Author: MARGA CROWE MD Service: ? Author [...] pelvic US as recommended by her previous manager psychiatry in [place] and now moving care here so here to establish. Had hysteroscopy [facility]ANDC in 2022, disordered proliferative endometrium and polyp. Was on low dose control for a while after that. Here for discussion of options. OB History T3 L2 SAB0 IAB0 Ectopic0 Multiple0 Live Births2 Underwriting Sales Representative History LMP: 10/14/2023 (Approximate), Premenopausal Age at Menarche: 13 Age at First : Age at Menopause: Underwriting Sales Representative History Comments: Sexual Activity: Yes; Male Contraception: No contraception data on record PAST MEDICAL HISTORY Diagnosis Date Benign hypertension 09/03/2017 Hypothyroid Rosacea PAST SURGICAL HISTORY Procedure Laterality Date SECTION HX 01/2013 [facility] [place] [facility] RE[facility]/2013 Dr Hurtado [facility] LAPAROSCOPY REPAIR INCISIONAL HERNIA REDUCIBLE 07/2013 [facility] [place] FAMILY HISTORY Problem Relation Age of Onset [...] She agrees w/ plan. Marga Crowe MD [facility] 09-05-2024 History of Present illness Narrative Rosalinda [...] pelvic US as recommended by her previous manager psychiatry in [place] and now moving care here so here to establish. Had hysteroscopy D&C in 2022, disordered proliferative endometrium and polyp. Was on low dose control for a while after that. Here for discussion of options. 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 LAPAROSCOPY REPAIR INCISIONAL HERNIA REDUCIBLE 07/2013 [facility] FAMILY HISTORY Problem Relation Age of [...] Marga Crowe MD documented in this encounter [facility] 09-05-2024 Telephone encounter Note Patient [employer] message requesting the following refill Refill(s) Requested: Requested Prescriptions Pending Prescriptions Disp Refills buPROPion XL (WELLBUTRIN XL) 300 mg 24 hr tablet 90 tablet 3 Sig: Take 1 tablet by mouth once daily. ALLERGIES No Known Allergies (home) [phone] (cell) Last Office Visit Date: 06/21/2024 Last Distance Health Visit: Visit date not found Future Appointment: 09/23/2024 The patients preferred pharmacy has been captured for this encounter? yes Request is for script(s) to be escript to pharmacy. Bailee Christensen LPN [facility] 09-05-2024 Miscellaneous Notes Patient [employer] message requesting the following refill Refill(s) Requested: Requested Prescriptions Pending Prescriptions Disp Refills buPROPion XL (WELLBUTRIN XL) 300 mg 24 hr tablet 90 tablet 3 Sig: Take 1 tablet by mouth once daily. ALLERGIES No Known Allergies (home) [phone] (cell) Last Office Visit Date: 06/21/2024 Last Distance Health Visit: Visit date not found Future Appointment: 09/23/2024 The patients preferred pharmacy has been captured for this encounter? yes Request is for script(s) to be escript to pharmacy. Bailee Christensen LPN documented in this encounter [facility] 08-17-2024 Telephone encounter Note Prior Auth for cody completed, approved, and scanned into chart. Demetra Butler LPN [facility] 08-17-2024 Miscellaneous Notes Prior Auth for cody completed, approved, and scanned into chart. Demetra Butler LPN documented in this encounter [facility] 07-29-2024 Note HNO ID: [id number] Author: NEGRO DAWSON PT Service: ? Author [...] Planned: 4 Planned Treatment Interventions: Therapeutic exercise (24130), Neuromuscular re-education (02338), Manual therapy (50765), Therapeutic activities (40301), Self-half-way management (84336), Patient/Family/Caregiver Education, Body Mechanics Training PLAN FOR [...] Mechanics TREATMENT: PT Treatment Interventions: Therapeutic Exercise, Self-Mcc Management Evaluation Therapeutic Exercise: 1: *GTB W's 3x10 2: *GTB pulldowns 3x10 3: *GTB star exercise 3x10 4: *Quadruped TA bracing 3x10, 5 sec holds 5: *Bird dogs 3x10/side Skilled Intervention: Patient was educated in proper exercise technique and purpose for exercises. Skilled judgment was used in selection of appropriate interventions. Provided written instruction for home exercise jb (more content not included)... [facility] 07-29-2024 History of Present illness Narrative Episode [...] Planned: 4 Planned Treatment Interventions: Therapeutic exercise (03836), Neuromuscular re-education (85361), Manual therapy (24919), Therapeutic activities (84389), Self-half-way management (64748), Patient/Family/Caregiver Education, Body Mechanics Training PLAN FOR [...] Mechanics TREATMENT: PT Treatment Interventions: Therapeutic Exercise, Self-Mcc Management Evaluation Therapeutic Exercise: 1: *GTB W's [...] facilitated with verbal, visual, and tactile cuing. Self-Mcc Management: 1: Spent time reviewing imaging and [...] Stop Time : 1049 Negro Dawson PT Program_ID:[id number] Access Code: [email or web address] URL: [email or web address] Date: 07-28-2024 Prepared By: Negro Dawson Program [...] - 10 reps documented in this encounter [facility] 07-06-2024 Telephone encounter Note Called pt and left a vm to return on our call need a pt appt [facility] 07-06-2024 Miscellaneous Notes Called pt and left a vm to return on our call need a pt appt Patient contacted and provider's message below was reviewed. Patient agreeable to see Gynecology and transferred to chorus master. Asking if Dr. Petersen could place order for Physical Therapy Referral for patient, as recommended below. Order pended for review. Please call patient once order is placed to assist with scheduling. Thank you. With regards to the pelvic ultrasound I would send her to APPLICATION DEVELOPER and probably do endometrial sampling. Her results [...] therapy. Eden Sung documented in this encounter [facility] 07-06-2024 Telephone encounter Note Please contact Rosalinda to schedule mother as a new patient with Dr. Petersen. [facility] 07-06-2024 Miscellaneous Notes Please contact Rosalinda to schedule mother as a new patient with Dr. Petersen. Ok to set up as new patient Eden Sung MD documented in this encounter [facility] 07-05-2024 Telephone encounter Note Patient contacted and provider's message below was reviewed. Patient agreeable to see Gynecology and transferred to chorus master. Asking if Dr. Petersen could place order for Physical Therapy Referral for patient, as recommended below. Order pended for review. Please call patient once order is placed to assist with scheduling. Thank you. [facility] 07-04-2024 Telephone encounter Note Ok to set up as new patient Eden Sung MD [facility] 07-04-2024 Telephone encounter Note With regards to the pelvic ultrasound I would send her to APPLICATION DEVELOPER and probably do endometrial sampling. Her results show that her uterus is thick but it is consistent with adenomyosis which is when the endometrial tissue exists within and grows into the uterine wall. Eden Sung MD [facility] 07-04-2024 Telephone encounter Note Patient denies any pain but would like to proceed with pain management. Order pended. Please review 07/01/24 pelvic ultrasound and advise. Marisela Balderrama MA [facility] 07-01-2024 Telephone encounter Note ----- Message [...] me to do physical therapy. Eden Sung [facility] 07-01-2024 History of Present illness Narrative [...] PATIENT PRESENTS WITH AN IMPLANTABLE OR ATTACHED DOBIE WORKER: No RADIOLOGY DEPARTMENT: Ultrasound PERIPHERAL IV DATA: Not applicable SIGNED BY: Mariam Herrera RDMS July 01, 2024 8:50 AM documented in this encounter [facility] 07-01-2024 Note HNO ID: [id number] Author: MARIAM HERRERA RDMS Service: ? Author Type: Safemaker Type: Progress Notes Filed: 07/01/2024 08:50 Note [...] PATIENT PRESENTS WITH AN IMPLANTABLE OR ATTACHED DOBIE WORKER: No RADIOLOGY DEPARTMENT: Ultrasound PERIPHERAL IV DATA: Not applicable SIGNED BY: Mariam Herrera RDMS July 01, 2024 8:50 AM [facility] 06-27-2024 Telephone encounter Note Patient [employer] message requesting the following refill Refill(s) Requested: Requested Prescriptions Pending Prescriptions Disp Refills SYNTHROID 100 mcg tablet 90 tablet 5 Sig: Take 1 tablet by mouth once daily. Take on empty stomach ALLERGIES No Known Allergies (home) [phone] (cell) Last Office Visit Date: 06/21/2024 Last Distance Health Visit: Visit date not found Future Appointment: 09/23/2024 The patients preferred pharmacy has been captured for this encounter? yes Request is for script(s) to be escript to pharmacy. Bailee Christensen LPN [facility] 06-27-2024 Miscellaneous Notes Patient Finisart message requesting the following refill Refill(s) Requested: Requested Prescriptions Pending Prescriptions Disp Refills SYNTHROID 100 mcg tablet 90 tablet 5 Sig: Take 1 tablet by mouth once daily. Take on empty stomach ALLERGIES No Known Allergies (home) [phone] (cell) Last Office Visit Date: 06/21/2024 Last Distance Health Visit: Visit date not found Future Appointment: 09/23/2024 The patients preferred pharmacy has been captured for this encounter? yes Request is for script(s) to be escript to pharmacy. Bailee Christensen LPN documented in this encounter [facility] 06-21-2024 History of Present illness Narrative [...] PATIENT PRESENTS WITH AN IMPLANTABLE OR ATTACHED DOBIE WORKER: No RADIOLOGY DEPARTMENT: General X-ray: Exam(s) Completed: Spine X-Ray(s): Scoliosis Series , PA/LAT PERIPHERAL IV DATA: Not applicable SIGNED BY: RT Jm(R) June 21, 2024 1:36 PM documented in this encounter [facility] 06-21-2024 Note HNO ID: [id number] Author: LISA KING RT(Edwige) Service: ? Author [...] PATIENT PRESENTS WITH AN IMPLANTABLE OR ATTACHED DOBIE WORKER: No RADIOLOGY DEPARTMENT: General X-ray: Exam(s) Completed: Spine X-Ray(s): Scoliosis Series , PA/LAT PERIPHERAL IV DATA: Not applicable SIGNED BY: RT Jm(R) June 21, 2024 1:36 PM [facility] 06-21-2024 History of Present illness Narrative Reason [...] and few other issues She has a manager psychiatry in [place], sees him yearly. Her periods were very [...] bloating, easy satiety, abdominal pain, or other manager psychiatry symptoms She does have some hot flashes, [...] HISTORY Procedure Laterality Date SECTION HX 01/2013 [facility] CHOLECYSTECTOMY 2009 [facility] HERNIA REPAIR HX 11/2013 Dr [facility]urtado - [facility] LAPAROSCOPY REPAIR INCISIONAL HERNIA REDUCIBLE 07/2013 [facility] FAMILY HISTORY Problem Relation Age of [...] Eden Petersen MD documented in this encounter [facility] 06-21-2024 Note HNO ID: [id number] Author: EDEN PETERSEN MD Service: ? Author [...] and few other issues She has a manager psychiatry in [place], sees him yearly. Her periods were very [...] bloating, easy satiety, abdominal pain, or other manager psychiatry symptoms She does have some hot flashes, [...] HISTORY Procedure Laterality Date SECTION HX 01/2013 [facility] CHOLECYSTECTOMY 2009 [facility] HERNIA REPAIR HX 11/2013 Dr Hurtado - [facility] LAPAROSCOPY REPAIR INCISIONAL HERNIA REDUCIBLE 07/2013 [facility] FAMILY HISTORY Problem Relation Age of [...] light. Extraocular movements (more content not included)... [facility] 06-17-2024 History of Present illness Narrative ANNUAL EXAM Chief Complaint Chief Complaint Patient presents with Annual Exam Pt here for yearly exam. Complaints: Last pap: 01/17/21 Last mammo: 04/17/23 Last dexa: 04/17/23 LMP: 10/2023 P: 3 HPI oRsalinda Russo is a 54 y.o., cynthia-menopausal female [...] Resource Strain: Low Risk (09/17/2023) Received from [facility] Overall Financial Resource Strain (CARDIA) Difficulty of Paying Living Expenses: Not hard at all Food Insecurity: No Food Insecurity (09/17/2023) Received from [facility] Hunger Vital Sign Worried About Running Out of Food in the Last Year: Never true Ran Out of Food in the Last Year: Never true Transportation Needs: No Transportation Needs (09/17/2023) Received from [facility] PRAPARE - Transportation Lack of Transportation (Medical): No Lack of Transportation (Non-Medical): No Physical Activity: Sufficiently Active (09/17/2023) Received from [facility] Exercise Vital Sign Days of Exercise per Week: 5 days Minutes of Exercise per Session: 30 min Stress: Stress Concern Present (09/17/2023) Received from [facility] [employer] - Occupational Stress Questionnaire Feeling of Stress : Rather much Social Connections: Moderately Isolated (09/17/2023) Received from [facility] Social Connection and Isolation Panel [NHANES] Frequency of Communication with Friends and Family: Three times a week Frequency of Social Gatherings with Friends and Family: Once a week Attends Confucianist Services: Never Active Member of Clubs or Organizations: No Attends Club or Organization Meetings: Never Marital Status: Intimate Partner Violence: Not on file Housing Stability: Unknown (09/17/2023) Received from [facility] Housing Stability Vital Sign Unable to [...] E2 4.Dexa discussed documented in this encounter [facility] 06-10-2024 Telephone encounter Note SOCIAL WORK FOLLOW UP NOTE: CANCER CENTER Pt noted on PRO Taussig report with a PHQ score of 8, below the threshold of requiring SW outreach. Pt also was seen by provider yesterday and per chart review, no concerns noted at OV. Deferred MAYA Moore [facility] 06-10-2024 Miscellaneous Notes SOCIAL WORK FOLLOW UP NOTE: CANCER CENTER Pt noted on PRO Taussig report with a PHQ score of 8, below the threshold of requiring SW outreach. Pt also was seen by provider yesterday and per chart review, no concerns noted at OV. Deferred MAYA Moore [facility] [facility] 06-09-2024 Note HNO ID: [id number] Author: PRINCE URIBE MD Service: ? Author [...] HISTORY Procedure Laterality Date SECTION HX 01/2013 [facility] CHOLECYSTECTOMY 2009 [facility] HERNIA REPAIR HX 11/2013 [facility] Hurtado [facility] LAPAROSCOPY REPAIR INCISIONAL HERNIA REDUCIBLE 07/2013 [facility] FAMILY HISTORY Problem Relation Age of [...] which included preparing to see the patient, rfwu-nn-obtz patient care, completing clinical documentation, obtaining and/or reviewing separately obtained history, counseling and educating the patient/family/caregiver, ordering medications, tests, or procedures, communicating with other HCPs (not separately reported), independently interpreting results (not separately reported), communicating results to the patient/family/caregiver, and care coordination (not separately reported). Electronically Signed: Prince Uribe MD June 09, 2024 [facility] 06-09-2024 History of Present illness Narrative (Elements [...] HISTORY Procedure Laterality Date SECTION HX 01/2013 [facility] CHOLECYSTECTOMY 2009 [facility] HERNIA REPAIR HX 11/2013 Dr Hurtado - [facility] LAPAROSCOPY REPAIR INCISIONAL HERNIA REDUCIBLE 07/2013 St [...] which included preparing to see the patient, qxse-lp-fzda patient care, completing clinical documentation, obtaining and/or reviewing separately obtained history, counseling and educating the patient/family/caregiver, ordering medications, tests, or procedures, communicating with other HCPs (not separately reported), independently interpreting results (not separately reported), communicating results to the patient/family/caregiver, and care coordination (not separately reported). Electronically Signed: Prince Uribe MD June 09, 2024 documented in this encounter [facility] 05-09-2024 Telephone encounter Note Prescription Refill [...] Crowe LPN May 09, 2024 2:42 PM [facility] 05-09-2024 Miscellaneous Notes Prescription Refill Information [...] 2024 2:42 PM documented in this encounter [facility] 05-04-2024 Telephone encounter Note This link may help. Seems just as good and I have several patients on generic Sprycel. [email or web address] Marc Castillo DO [facility] Work Phone: 05-04-2024 Miscellaneous Notes This link may help. Seems just as good and I have several patients on generic Sprycel. [email or web address] Marc Castillo DO documented in this encounter [facility] 04-26-2024 Telephone encounter Note Per Dr. Uribe. Patient needs to follow up with PCP. Nadia Alba RN [facility] Work Phone: 04-26-[address] Uribe. Patient needs to follow up with PCP. Nadia Alba RN documented in this encounter [facility] 04-22-2024 Telephone encounter Note Patient notified of results and provider's instructions. Patient verbalizes understanding. Patient states that she will reach out to gynecology. If she can't be seen sooner then she will have provider place ultrasound order. Leesa aGnn RN [facility] 04-22-2024 Miscellaneous Notes Patient notified of [...] Judith Howell APRN.CNP documented in this encounter [facility] 04-22-2024 Telephone encounter Note Left message to call office. 04/22/2024 9:17 AM [facility] 04-22-2024 Telephone encounter Note No concerns in blood work that would result in her abnormal menses. She needs to see gynecology and if she would like, I could put in the Ultrasound as discussed in appointment. Thank you Judith Howell APRN.CNP [facility] 04-20-2024 Note HNO ID: [id number] Author: JUDITH HOWELL APRN.CNP Service: ? Author [...] visit and vaginal exam. Current provider in [place] so may want to see a local [...] HX Comment: Dr Hurtado [facility] 07/2013: LAPAROSCOPY REPAIR INCISIONAL HERNIA REDUCIBLE Comment: [...] flag symptoms discus (more content not included)... [facility] 04-20-2024 History of Present illness Narrative CC: [...] visit and vaginal exam. Current provider in [place] so may want to see a local provider. Does have history of hypothyroidism: Taking medication as ordered. Denies any abnormal change in weight or energy. REVIEW OF SYSTEMS See [facility] PAST MEDICAL HISTORY 09/03/2017: Benign hypertension No date: Hypothyroid No date: Rosacea PAST SURGICAL HISTORY 01/2013: SECTION HX Comment: [facility]: CHOLECYSTECTOMY Comment: [facility] 11/2013: HERNIA REPAIR HX Comment: Dr Hurtado [facility] 07/2013: LAPAROSCOPY REPAIR INCISIONAL HERNIA REDUCIBLE Comment: [...] Judith Howell APRN.CNP documented in this encounter [facility] 03-01-2024 Note HNO ID: [id number] Author: PRINCE URIBE MD Service: ? Author [...] HISTORY Procedure Laterality Date SECTION HX 01/2013 [facility] CHOLECYSTECTOMY 2009 [facility] HERNIA REPAIR HX 11/2013 Dr Hurtado [facility] LAPAROSCOPY REPAIR INCISIONAL HERNIA REDUCIBLE 07/2013 [facility] FAMILY HISTORY Problem Relation Age of [...] which included preparing to see the patient, twtu-db-vsfj patient care, completing clinical documentation, obtaining and/or reviewing separately obtained history, counseling and educating the patient/family/caregiver, ordering medications, tests, or procedures, communicating with other HCPs (not separately reported), independently interpreting results (not separately reported), communicating results to the patient/family/caregiver, and care coordination (not separately reported). 45 Electronically Signed: Prince Uribe MD March 01, 2024 [facility] 03-01-2024 History of Present illness Narrative (Elements [...] HISTORY Procedure Laterality Date SECTION HX 01/2013 [facility] CHOLECYSTECTOMY 2009 [facility] HERNIA REPAIR HX 11/2013 Dr Hurtado [facility] LAPAROSCOPY REPAIR INCISIONAL HERNIA REDUCIBLE 07/2013 [facility] FAMILY HISTORY Problem Relation Age of [...] which included preparing to see the patient, jqsk-mp-jqpy patient care, completing clinical documentation, obtaining and/or reviewing separately obtained history, counseling and educating the patient/family/caregiver, ordering medications, tests, or procedures, communicating with other HCPs (not separately reported), independently interpreting results (not separately reported), communicating results to the patient/family/caregiver, and care coordination (not separately reported). 45 Electronically Signed: Prince Uribe MD March 01, 2024 documented in this encounter [facility] 02-25-2024 Telephone encounter Note Pt called and is notified of providers message and instructions. Pt voices understanding. Maria Del Rosario Coleman RN [facility] 02-25-2024 Miscellaneous Notes Pt called and [...] Judith Howell APRN.CNP documented in this encounter [facility] 02-25-2024 Telephone encounter Note Continue to hold and we will discuss rechecking level at next appointment. Thank you Judith Howell APRN.CNP [facility] 02-25-2024 Telephone encounter Note Pt called and is notified of providers results and question. Pt voices understanding and states she stopped taking the B12 when she saw that he level was high. She said she last took it Thursday02/22/24. Maria Del Rosario Coleman, RN [facility] 02-25-2024 Telephone encounter Note Vit B12 is high. Is she still taking 1000mcg once daily? Thank you Judith Howell APRN.RETURNS SUPERVISOR [facility] 12-23-2023 History of Present illness Narrative Elements copied from Dr. Uribe's note dated 10/26, have been reviewed and updated where appropriate, and all reflect current assessment and medical decision making during today's encounter. HISTORY OF PRESENT ILLNESS: Rosalinda Russo is a 53 year old female who was referred from ER with WBC 380K. [place] well, no fevers, active. Was in ER [...] HISTORY Procedure Laterality Date SECTION HX 01/2013 [facility] CHOLECYSTECTOMY 2009 [facility] HERNIA REPAIR HX 11/2013 [facility] LAPAROSCOPY REPAIR INCISIONAL H[facility] FAMILY HISTORY Problem Relation Age of Onset [...] which included preparing to see the patient, egny-xf-cgbh patient care, completing clinical documentation, obtaining and/or reviewing separately obtained history, performing a medically appropriate examination, counseling and educating the patient/family/caregiver, communicating with other HCPs (not separately reported), and communicating results to the patient/family/caregiver. Marc Castillo DO documented in this encounter [facility] 12-17-2023 History of Present illness Narrative [...] PATIENT PRESENTS WITH AN IMPLANTABLE OR ATTACHED DOBIE WORKER: No RADIOLOGY DEPARTMENT: General X-ray: Exam(s) Completed: Pelvis X-Ray: Pelvis with Hip Left PERIPHERAL IV DATA: Not applicable SIGNED BY: RT Courtney(R) December 17, 2023 11:17 AM documented in this encounter [facility] 12-17-2023 History of Present illness Narrative [...] HISTORY Procedure Laterality Date SECTION HX 01/2013 [facility] CHOLECYSTECTOMY 2009 [facility] HERNIA REPAIR HX 11/2013 Dr Hurtado [facility] LAPAROSCOPY REPAIR INCISIONAL HERNIA REDUCIBLE 07/2013 [facility] ALLERGIES Patient has no known allergies. [...] - Instructed patient to contact office or cnntc-yf-luxs after-hours promptly should condition worsen or any new symptoms appear. - Counseling Center [facility] and after hours crisis line 4. Numbness [...] routine eye exam completed through [facility] - CONSULT TO OPHTHALMOLOGY Prescription instructions reviewed with patient as applicable. Potential red flag symptoms discussed with the patient. Reviewed appropriate action plan to take if red flag symptoms occur. Patient agreeable to treatment plan. Judith Howell APRN.CNP documented in this encounter [facility] 12-04-2023 Telephone encounter Note Patient started/will [...] if unable to comply. Annie Alba RN [facility] Work Phone: 12-04-2023 Miscellaneous Notes Patient [...] Annie Alba RN documented in this encounter [facility] 12-04-2023 Telephone encounter Note ORAL ANTI-CANCER [...] teaching topics as needed. Annie Alba, RN [facility] 11-23-2023 Miscellaneous Notes Patients scheduled adjusted and mychart message sent. Manda Yun PSS: please reschedule tomorrow appointment for 1 month out (around 12/22/23) Patient needs CBC/CMP every 2 weeks for 2months. She would like to have those draw Tues. Nadia Alba, RN documented in this encounter [facility] 11-23-2023 Miscellaneous Notes Cody approval received. Approved from 10/23/2023 to 06/23/2024. Approval faxed to specialty pharmacy. Patient notified. Yessy Trejo LPN I was able to speak with the lab pathologist at [facility] last night and I requested a letter stating that the 3 specific mutations were included/tested in the BCR/ABL kinase domain. I received the letter this morning and have faxed that plus Dr. Uribe's letter of appeal to the insurance company. Awaiting decision. PalindromX message sent to update patient on progress. Yessy Trejo LPN [facility] lab fellow called stating they do not have the capability to amend the report to show every specific mutation tested. The test spans ABL1 codons 46-542 and detects essentially ALL clinically actionable BCR-ABL1 kinase domain mutations, including [id number]. Dr. Uribe- you will need to write an appeal letter to try to get this approved. Yessy Trejo LPN Received VM message from Harman CHARLES stating I needed to contact the send out lab at [facility]. I spoke with Dr. Candace Ayers, , she will contact [facility] to facilitate obtaining a detailed report. Reference #[id number]. Yessy Trejo LPN Correspondence received from [facility] requiring additional in-depth lab results. Contacted Harman at [facility] lab , to inquire about additional information. He will contact the send out lab at [facility] and ask that [facility]'s lab look into additional information for specific mutations: T315I/A, F317L/V/I/C and V299L. Will fax results to the office or contact this nurse for any issues. Reference #[id number] Yessy Trejo LPN Labs resulted and faxed to [facility]. Awaiting decision. Yessy Trejo LPN Cover my meds [place] Auth form completed and sent to [facility] Spec. [facility]. Received call from Michelle requesting pathology report. Pathology faxed, only have 1 page, not sure it contains info they are looking for. Contacted pt. To see if possible pathology anywhere else. Informed there is not. Awaiting decision for Prior Auth# [id number] Gilda Sparks LPN Dr. Uribe note from today completed and signed. Nadia Alba, LOAN Office notes 10/27/2023 state: Here for follow up, on Gleevec since Apr 14, 2023. Tolerating well, no side effects to report. Labs reviewed. Received request for Prior Authorization on Sprycel 100 mg tablet from [facility] specialty pharmacy . They are requesting office notes. And Diagnosis. Don't think this is going to work. Need notes to be updated so Specialty pharmacy can start processing. Gilda Sparks LPN documented in this encounter [facility] 11-03-2023 Miscellaneous Notes No. Lab range for CO2 is 22 - 30 mmol/L. Her last was 29. No concerns. documented in this encounter [facility] 10-30-2023 Miscellaneous Notes Call to patient, questions answered. She is still taking Gleevec and will have labs on , 11/03/23. Nadia Alba RN documented in this encounter [facility] 10-28-2023 Miscellaneous Notes The below requested [...] the Sprycel. Please sign the order. Yessy Trjeo LPN documented in this encounter [facility] 10-27-2023 History of Present illness Narrative [...] HISTORY Procedure Laterality Date SECTION HX 01/2013 [facility] CHOLECYSTECTOMY 2009 [facility] HERNIA REPAIR HX 11/2013 Dr Hurtado [facility] LAPAROSCOPY REPAIR INCISIONAL HERNIA REDUCIBLE 07/2013 [facility] FAMILY HISTORY Problem Relation Age of [...] which included preparing to see the patient, urgq-lg-rewp patient care, completing clinical documentation, obtaining and/or reviewing separately obtained history, counseling and educating the patient/family/caregiver, ordering medications, tests, or procedures, communicating with other HCPs (not separately reported), independently interpreting results (not separately reported), communicating results to the patient/family/caregiver, and care coordination (not separately reported). 45 Electronically Signed: Prince Uribe MD October 27, 2023 documented in this encounter [facility] 09-18-2023 History of Present illness Narrative [...] HISTORY Procedure Laterality Date [facility] HERNIA REPAIR HX 11/2013 Dr Hurtado [facility] LAPAROSCOPY REPAIR INCISIONAL HERNIA REDUCIBLE 07/2013 [facility] ALLERGIES Patient has no allergy information [...] - Instructed patient to contact office or jfqcp-kw-cpmh after-hours promptly should condition worsen or any new symptoms appear. - [facility] and after hours crisis line 3. Insomnia, unspecified type - ICD9: 780.52, ICD10: G47.00 As above Prescription instructions reviewed with patient as applicable. Potential red flag symptoms discussed with the patient. Reviewed appropriate action plan to take if red flag symptoms occur. Patient agreeable to treatment plan. Judith Howell APRN.CNP documented in this encounter [facility] 09-10-2023 History of Present illness Narrative [...] Past Histories independently gathered by the clinical it support manager and the remaining scribed note accurately describes my personal service to the patient. Allison Daniels APRN.CNP documented in this encounter [facility] 07-15-2023 Miscellaneous Notes Patient has been [...] Not applicable Please advise. Thank you. Isidra Arias. documented in this encounter [facility] 06-02-2023 History of Present illness Narrative [...] HISTORY Procedure Laterality Date SECTION HX 01/2013 [facility] CHOLECYSTECTOMY 2009 [facility] HERNIA REPAIR HX 11/2013 Dr Hurtado [facility] LAPAROSCOPY REPAIR INCISIONAL HERNIA REDUCIBLE 07/2013 [facility] FAMILY HISTORY Problem Relation Age of [...] which included preparing to see the patient, uqep-dw-joar patient care, completing clinical documentation, obtaining and/or reviewing separately obtained history, counseling and educating the patient/family/caregiver, ordering medications, tests, or procedures, communicating with other HCPs (not separately reported), independently interpreting results (not separately reported), communicating results to the patient/family/caregiver, and care coordination (not separately reported). 45 Electronically Signed: Prince Uribe MD June 02, 2023 documented in this encounter [facility] 05-12-2023 History of Present illness Narrative [...] (H) 4.95 (H) 0.92 (L) 0.47 (L) Peach% % 2.0 2.0 3.0 8.0 8.6 Abs Peach <0.87 k/uL 6.77 (H) 6.01 (H) 2.97 (H) 0.49 0.28 Eosin% % 3.0 3.0 1.0 1.0 0.9 Abs Eosin <0.46 k/uL 10.16 (H) 9.01 (H) 0.99 (H) 0.06 0.03 Baso% % 4.0 2.0 2.0 2.0 2.5 Abs Baso <0.11 k/uL 13.55 (H) 6.01 (H) 1.98 (H) 0.12 (H) 0.08 [place]% % 8.0 9.0 4.0 Myelo% % 19.0 [...] Yee Lind APRN.CNP documented in this encounter [facility] 04-30-2023 Instructions Judith Howell APRN.CNP - 04/30/2023 10:10 AM EDT Get ordered fasting blood work on 05/[address] Navas's standing order. documented in this encounter [facility] 04-30-2023 History of Present illness Narrative [...] HISTORY Procedure Laterality Date SECTION HX 01/2013 [facility] CHOLECYSTECTOMY 2009 [facility] HERNIA REPAIR HX 11/2013 Dr [facility] LAPAROSCOPY REPAIR INCISIONAL HERNIA REDUCIBLE 07/2013 [facility] ALLERGIES Patient has no known allergies. [...] Judith Howell APRN.HALIMA documented in this encounter [facility] 04-24-2023 Miscellaneous Notes Last office visit: 10/22/22 Next appointment scheduled: 04/30/23 Patient phones requesting refills as follows: Requested Prescriptions Pending Prescriptions Disp Refills buPROPion XL (WELLBUTRIN XL) 300 mg 24 hr tablet 90 tablet 1 Sig: Take 1 tablet by mouth once daily. Please review and advise. Anyi Crowe LPN documented in this encounter [facility] 04-23-2023 Miscellaneous Notes ORAL ANTI-CANCER AGENTS [...] Annie Alba RN documented in this encounter [facility] 04-21-2023 Miscellaneous Notes Patient s identity has been confirmed by name and birthdate: Yes Call received from Oziel Dobson at 2:33 PM to report an urgent value for WBC with a result of 300.38. Dr. Uribe was notified of the result at 3:30 PM. Gilda Sparks LPN documented in this encounter [facility] 04-15-2023 Miscellaneous Notes Patient started/will start taking Gleevec on today. Nadia Alba RN ORAL ANTI-CANCER AGENTS EDUCATION patient [...] Annie Alba RN documented in this encounter [facility] 04-15-2023 Miscellaneous Notes Pt here for labs. Asking about additional labs that should have been ordered. Per this phone note, notified pt that her PCP has not entered any other labs at this time. Spoke with patient, she will reach out to her PCP since they ordered this lab. Nadia Alba RN documented in this encounter [facility] 04-10-2023 Miscellaneous Notes Spoke with patient and she will be out of town until 04/12. Scheduled labs and OV as directed starting on 04/14 and, having consulted the nurse, patient will start imatinib on 04/15. Nurse to call on 04/15 to review with patient. Leesa Gonzalez documented in this encounter [facility] 04-09-2023 Miscellaneous Notes Prior authorization was approved for Imatinib. Plan Name: [employer] [place] reference number: [id number] Approval Dates: 04/08/2023-11/07/2023 However, s/he is required to use [facility] to fill this medication. Will queue prescription(s) to go to designated specialty pharmacy. For reference, their pharmacy phone number is [phone]. No further action by [facility] Specialty. Vera Paige, PharmD Clinical Pharmacist, Oncology [facility] P: , F: Pool: P [facility] Pool #: [id number] documented in this encounter [facility] 04-07-2023 History of Present illness Narrative [facility] received prescription(s) for Sprycel from Dr. Uribe's office. Benefits investigation was conducted, indicating that a prior authorization is required by patient's insurance plan with [employer]. Encounter will be updated once prior authorization has been submitted by [facility]. Margarita Millan CPhT [facility], Oncology P: / F: documented in this encounter [facility] 04-02-2023 Procedure note Associated Ord er(s): BONE MARROW BIOPSY Post-Procedure Diagnose(s): Leukemoid reaction BEDSIDE PROCEDURE NOTE BONE MARROW BIOPSY Performed by: Yee Lind APRN.HALIMA Authorized by: Yee Lind APRN.CNP Where was Patient When this Procedure was Performed [facility] Informed Consent Consent Obtained: Written [place] Protocol A moment to CARE was completed. [...] Site: Right posterior sperior iliac crest . [employer] biopsy system was used. Using aseptic technique, [...] TIME: 1:50 PM documented in this encounter [facility] 04-02-2023 History of Present illness Narrative Pt discharged to home with after BMBX with dry sterile dressing in place. No drainage noted. Post-procedure care reviewed with patient. Pt to call with any complaints of redness, swelling, increased or unresolved pain, bleeding, chills, bruising, and/or fever. Pt verbalized understanding. Demetra Butler LPN documented in this encounter [facility] 04-02-2023 History of Present illness Narrative [...] HISTORY Procedure Laterality Date SECTION HX 01/2013 [facility] CHOLECYSTECTOMY 2009 [facility] HERNIA REPAIR HX 11/2013 [facility] Hurtado [facility] LAPAROSCOPY REPAIR INCISIONAL HERNIA REDUCIBLE 07/2013 [facility] FAMILY HISTORY Problem Relation Age of [...] which included preparing to see the patient, zhjy-nd-xpww patient care, completing clinical documentation, obtaining and/or reviewing separately obtained history, counseling and educating the patient/family/caregiver, ordering medications, tests, or procedures, communicating with other HCPs (not separately reported), independently interpreting results (not separately reported), communicating results to the patient/family/caregiver, and care coordination (not separately reported). 45 Electronically Signed: Prince Uribe MD April 02, 2023 1:05 PM documented in this encounter [facility] 04-02-2023 Miscellaneous Notes Patient returned call [...] Yessy Trejo LPN documented in this encounter [facility] 10-29-2022 Miscellaneous Notes back to patient requesting that she have her contact our office to reschedule as we are unable to do so through her account. TAMIR Arenas documented in this encounter [facility] 09-26-2022 History of Present illness Narrative [...] HISTORY Procedure Laterality Date SECTION HX 01/2013 [facility] CHOLECYSTECTOMY 2009 [facility] HERNIA REPAIR HX 11/2013 Dr Hurtado - [facility] LAPAROSCOPY REPAIR INCISIONAL HERNIA REDUCIBLE 07/2013 [facility] Current Outpatient Medications Medication Sig lisinopril-hydroCHLOROthiazide [...] patient was offered a surgery/procedure at a [facility] facility. I have counseled the patient [...] Rosario Espinosa PA-C documented in this encounter [facility] 09-26-2022 Nurse Note REVIEW OF SYSTEMS: [...] Davida Hutchinson LPN documented in this encounter [facility] 09-10-2022 Instructions Eden Petersen MD - [...] Foundation at [email or web address]. documented in this encounter [facility] 09-10-2022 History of Present illness Narrative [...] HISTORY Procedure Laterality Date SECTION HX 01/2013 [facility] CHOLECYSTECTOMY 2009 [facility] HERNIA REPAIR HX 11/2013 Dr Hurtado - [facility] LAPAROSCOPY REPAIR INCISIONAL HERNIA REDUCIBLE 07/2013 [facility] FAMILY HISTORY Problem Relation Age of [...] - CONSULT TO DERMATOLOGY Eden Petersen MD [facility] OPEN ACCESS QUESTIONNAIRE 1. Are you [...] Please send all open access questionnaires to [facility] Pool #[id number] documented in this encounter [facility] 09-05-2022 Miscellaneous Notes Patient over due [...] Arina Solis LPN documented in this encounter [facility] 04-28-2022 Miscellaneous Notes Patient has been [...] Isidra Mao LPN documented in this encounter [facility] 04-02-2022 Miscellaneous Notes Patient has been [...] Rosanna Aguirre LPN documented in this encounter [facility] 04-01-2022 Miscellaneous Notes Patient has been [...] Isidra Mao LPN documented in this encounter [facility] 03-28-2022 Miscellaneous Notes Patient has been [...] Joie Wallace LPN documented in this encounter [facility] 01-02-2022 History of Present illness Narrative [...] HISTORY Procedure Laterality Date SECTION HX 01/2013 [facility] HERNIA REPAIR HX 11/2013 Dr Hurtado - [facility] H[facility] REPAIR [facility] GALLBLADDER 2009 [facility] ALLERGIES Patient has no known allergies. [...] diet of 1000 mg/day for under 50, 9454-8389 mg/day for 50+ - Discussed need and [...] - Instructed patient to contact office or [id number] after-hours promptly should condition worsen or any new symptoms appear. - Counseling Center [facility] and after hours crisis line 6. Acne [...] Judith Howell APRN.CNP documented in this encounter [facility] 12-09-2021 Miscellaneous Notes Patient has been [...] Isidra Mao LPN documented in this encounter [facility] 12-06-2021 Miscellaneous Notes Patient has been [...] Isidra Mao LPN documented in this encounter [facility] 03-13-2017 History of Past i llness Narrative Problem Noted Date Resolved Date Obesity (BMI 30.0-34.9) 03/13/2017 09/10/19 Last Assessment & Plan: She is not Exercising as much as she did in the past. documented as of this encounter (statuses as of 09/10/2022) [facility] History of Past illness Narrative* Problem Noted Date Resolved Date Obesity (BMI 30.0-34.9) 03/13/2017 09/10/19 Last Assessment & Plan: She is not Exercising as much as she did in the past. documented as of this encounter (statuses as of 10/02/2022) [facility] History of Past illness Narrative* Problem Noted Date Resolved Date Obesity (BMI 30.0-34.9) 03/13/2017 09/10/19 Last Assessment & Plan: She is not Exercising as much as she did in the past. documented as of this encounter (statuses as of 10/29/2022) [facility] History of Past illness Narrative* Problem Noted Date Resolved Date Obesity (BMI 30.0-34.9) 03/13/2017 09/10/19 Last Assessment & Plan: She is not Exercising as much as she did in the past. documented as of this encounter (statuses as of 11/10/2022) [facility] History of Past illness Narrative* Problem Noted Date Diagnosed Date Resolved Date Obesity (BMI 30.0-34.9) 03/13/201708/2022 Last Assessment & Plan: She is not Exercising as much as she did in the past. documented as of this encounter (statuses as of 02/27/2023) [address]04-2017 History of Past illness Narrative* Problem Noted Date Diagnosed Date Resolved Date Obesity (BMI 30.0-34.9) 03/13/201708/2022 Last Assessment & Plan: She is not Exercising as much as she did in the past. documented as of this encounter (statuses as of 04/02/2023) [facility] History of Past illness Narrative* Problem Noted Date Diagnosed Date Resolved Date Obesity (BMI 30.0-34.9) 03/13/201708/2022 Last Assessment & Plan: She is not Exercising as much as she did in the past. documented as of this encounter (statuses as of 04/02/2023) [place] [address]-04-2017 History of Past illness Narrative* Problem Noted Date Diagnosed Date Resolved Date Obesity (BMI 30.0-34.9) 03/13/201708/2022 Last Assessment & Plan: She is not Exercising as much as she did in the past. documented as of this encounter (statuses as of 04/03/2023) [address]04-2017 History of Past illness Narrative* Problem Noted Date Diagnosed Date Resolved Date Obesity (BMI 30.0-34.9) 03/13/201708/2022 Last Assessment & Plan: She is not Exercising as much as she did in the past. documented as of this encounter (statuses as of 04/08/2023) [facility] History of Past illness Narrative* Problem Noted Date Diagnosed Date Resolved Date Obesity (BMI 30.0-34.9) 03/13/201708/2022 Last Assessment & Plan: She is not Exercising as much as she did in the past. documented as of this encounter (statuses as of 04/08/2023) [facility] History of Past illness Narrative* Problem Noted Date Diagnosed Date Resolved Date Obesity (BMI 30.0-34.9) 03/13/201708/2022 Last Assessment & Plan: She is not Exercising as much as she did in the past. documented as of this encounter (statuses as of 04/09/2023) [address]04-2017 History of Past illness Narrative* Problem Noted Date Diagnosed Date Resolved Date Obesity (BMI 30.0-34.9) 03/13/201708/2022 Last Assessment & Plan: She is not Exercising as much as she did in the past. documented as of this encounter (statuses as of 04/10/2023) [facility] History of Past illness Narrative* Problem Noted Date Diagnosed Date Resolved Date Obesity (BMI 30.0-34.9) 03/13/201708/2022 Last Assessment & Plan: She is not Exercising as much as she did in the past. documented as of this encounter (statuses as of 04/10/2023) [place] [address]-04-2017 History of Past illness Narrative* Problem Noted Date Diagnosed Date Resolved Date Obesity (BMI 30.0-34.9) 03/13/201708/2022 Last Assessment & Plan: She is not Exercising as much as she did in the past. documented as of this encounter (statuses as of 04/15/2023) [address]04-2017 History of Past illness Narrative* Problem Noted Date Diagnosed Date Resolved Date Obesity (BMI 30.0-34.9) 03/13/201708/2022 Last Assessment & Plan: She is not Exercising as much as she did in the past. documented as of this encounter (statuses as of 04/15/2023) [facility] History of Past illness Narrative* Problem Noted Date Diagnosed Date Resolved Date Obesity (BMI 30.0-34.9) 03/13/201708/2022 Last Assessment & Plan: She is not Exercising as much as she did in the past. documented as of this encounter (statuses as of 04/23/2023) [facility] History of Past illness Narrative* Problem Noted Date Diagnosed Date Resolved Date Obesity (BMI 30.0-34.9) 03/13/201708/2022 Last Assessment & Plan: She is not Exercising as much as she did in the past. documented as of this encounter (statuses as of 04/24/2023) [facility] History of Past illness Narrative* Problem Noted Date Diagnosed Date Resolved Date Obesity (BMI 30.0-34.9) 03/13/201708/2022 Last Assessment & Plan: She is not Exercising as much as she did in the past. documented as of this encounter (statuses as of 04/24/2023) [facility] History of Past illness Narrative* Problem Noted Date Diagnosed Date Resolved Date Obesity (BMI 30.0-34.9) 03/13/201708/2022 Last Assessment & Plan: She is not Exercising as much as she did in the past. documented as of this encounter (statuses as of 04/24/2023) [facility] History of Past illness Narrative* Problem Noted Date Diagnosed Date Resolved Date Obesity (BMI 30.0-34.9) 03/13/201708/2022 Last Assessment & Plan: She is not Exercising as much as she did in the past. documented as of this encounter (statuses as of 05/01/2023) [facility] History of Past illness Narrative* Problem Noted Date Diagnosed Date Resolved Date Obesity (BMI 30.0-34.9) 03/13/201708/2022 Last Assessment & Plan: She is not Exercising as much as she did in the past. documented as of this encounter (statuses as of 05/16/2023) [facility] History of Past illness Narrative* Problem Noted Date Diagnosed Date Resolved Date Obesity (BMI 30.0-34.9) 03/13/201708/2022 Last Assessment & Plan: She is not Exercising as much as she did in the past. documented as of this encounter (statuses as of 06/03/2023) [facility] History of Past illness Narrative* Problem Noted Date Diagnosed Date Resolved Date Obesity (BMI 30.0-34.9) 03/13/201708/2022 Last Assessment & Plan: She is not Exercising as much as she did in the past. documented as of this encounter (statuses as of 07/06/2023) [facility] History of Past illness Narrative* Problem Noted Date Diagnosed Date Resolved Date Obesity (BMI 30.0-34.9) 03/13/201708/2022 Last Assessment & Plan: She is not Exercising as much as she did in the past. documented as of this encounter (statuses as of 07/15/2023) [facility] History of Past illness Narrative* Problem Noted Date Diagnosed Date Resolved Date Obesity (BMI 30.0-34.9) 03/13/201708/2022 Last Assessment & Plan: She is not Exercising as much as she did in the past. documented as of this encounter (statuses as of 09/18/2023) [address]04-2017 History of Past illness Narrative* Problem Noted Date Diagnosed Date Resolved Date Obesity (BMI 30.0-34.9) 03/13/201708/2022 Last Assessment & Plan: She is not Exercising as much as she did in the past. documented as of this encounter (statuses as of 10/19/2023) [address]04-2017 History of Past illness Narrative* Problem Noted Date Diagnosed Date Resolved Date Obesity (BMI 30.0-34.9) 03/13/201708/2022 Last Assessment & Plan: She is not Exercising as much as she did in the past. documented as of this encounter (statuses as of 10/27/2023) [address]04-2017 History of Past illness Narrative* Problem Noted Date Diagnosed Date Resolved Date Obesity (BMI 30.0-34.9) 03/13/201708/2022 Last Assessment & Plan: She is not Exercising as much as she did in the past. documented as of this encounter (statuses as of 10/28/2023) [place] [address]-04-2017 History of Past illness Narrative* Problem Noted Date Diagnosed Date Resolved Date Obesity (BMI 30.0-34.9) 03/13/201708/2022 Last Assessment & Plan: She is not Exercising as much as she did in the past. documented as of this encounter (statuses as of 10/30/2023) [place] [address]04-2017 History of Past illness Narrative* Problem Noted Date Diagnosed Date Resolved Date Obesity (BMI 30.0-34.9) 03/13/201708/2022 Last Assessment & Plan: She is not Exercising as much as she did in the past. documented as of this encounter (statuses as of 11/03/2023) [place] [address]04-2017 History of Past illness Narrative* Problem Noted Date Diagnosed Date Resolved Date Obesity (BMI 30.0-34.9) 03/13/201708/2022 Last Assessment & Plan: She is not Exercising as much as she did in the past. documented as of this encounter (statuses as of 11/18/2023) [facility] History of Past illness Narrative* Problem Noted Date Diagnosed Date Resolved Date Obesity (BMI 30.0-34.9) 03/13/201708/2022 Last Assessment & Plan: She is not Exercising as much as she did in the past. documented as of this encounter (statuses as of 11/19/2023) [address]04-2017 History of Past illness Narrative* Problem Noted Date Diagnosed Date Resolved Date Obesity (BMI 30.0-34.9) 03/13/201708/2022 Last Assessment & Plan: She is not Exercising as much as she did in the past. documented as of this encounter (statuses as of 11/23/2023) [facility] History of Past illness Narrative* Problem Noted Date Diagnosed Date Resolved Date Obesity (BMI 30.0-34.9) 03/13/201708/2022 Last Assessment & Plan: She is not Exercising as much as she did in the past. documented as of this encounter (statuses as of 11/24/2023) [facility] History of Past illness Narrative* Problem Noted Date Diagnosed Date Resolved Date Obesity (BMI 30.0-34.9) 03/13/201708/2022 Last Assessment & Plan: She is not Exercising as much as she did in the past. documented as of this encounter (statuses as of 11/27/2023) [address]04-2017 History of Past illness Narrative* Problem Noted Date Diagnosed Date Resolved Date Obesity (BMI 30.0-34.9) 03/13/201708/2022 Last Assessment & Plan: She is not Exercising as much as she did in the past. documented as of this encounter (statuses as of 09/19/2023) [facility] note* Diagnosis Encounter for screening mammogram for breast cancer [facility] Diagnosis Benign hypertension Essential hypertension, benign Acquired hypothyroidism Unspecified hypothyroidism documented in this encounter [facility] note* Diagnosis Annual physical exam- Primary Routine general medical examination at a health care facility Benign hypertension Essential hypertension, benign Epidermoid cyst Sebaceous cyst Urinary retention Retention of urine, unspecified Anxiety and depression Dysthymic disorder Acne rosacea Rosacea Acquired hypothyroidism Unspecified hypothyroidism Lipid screening Screening for lipoid disorders [facility]* Diagnosis Anxiety and depression- Primary Dysthymic disorder Overweight (BMI 25.0-29.9) Overweight Benign hypertension Essential hypertension, benign Special screening for malignant neoplasms, colon Hair loss Alopecia, unspecified documented in this encounter [facility] note* Diagnosis Encounter for screening for malignant neoplasm of colon- Primary Special screening for malignant neoplasms, colon documented in this encounter [facility] note* Diagnosis Encounter for screening mammogram for breast cancer [facility]* Diagnosis Benign hypertension Essential hypertension, benign [facility] noteNo assessment information availableWKet[facility] Work Phone: [facility] note* Diagnosis Leukocytosis, unspecified type- Primary [facility]* Diagnosis Leukemoid reaction documented in this encounter [facility] note* Diagnosis Leukemoid reaction- Primary [facility] Diagnosis Acquired hypothyroidism- Primary Unspecified hypothyroidism CML (chronic myelocytic leukemia) (HCC) Chronic myeloid leukemia, without mention of having achieved remission Medication management Encounter for long-term (current) use of other medications High triglycerides Pure hyperglyceridemia Benign hypertension Essential hypertension, benign Rash Rash and other nonspecific skin eruption [facility] Diagnosis CML (chronic myeloid leukemia) (HCC)- Primary Chronic myeloid leukemia, without mention of having achieved remission [facility]* Diagnosis CML (chronic myeloid leukemia) (HCC)- Primary Chronic myeloid leukemia, without mention of having achieved remission [facility] Diagnosis CML (chronic myeloid leukemia) (HCC)- [...] female climacteric states documented in this encounter [facility] note* Diagnosis Acne rosacea- Primary Rosacea Acquired hypothyroidism Unspecified hypothyroidism Obesity (BMI 30.0-34.9) Obesity, unspecified Scoliosis, unspecified scoliosis type, unspecified spinal region documented in this encounter [facility] note* Diagnosis Acne rosacea- Primary Rosacea Acquired hypothyroidism Unspecified hypothyroidism Obesity (BMI 30.0-34.9) Obesity, unspecified Vitamin D deficiency- Primary Unspecified vitamin D deficiency Iron deficiency Iron deficiency anemia, unspecified Spotting Other specified noninflammatory disorder of vagina Scoliosis, unspecified scoliosis type, unspecified spinal region Screening for HIV (human immunodeficiency virus) Special screening examination for other specified viral diseases documented in this encounter [facility] note* Diagnosis Acne rosacea- Primary Rosacea Acquired hypothyroidism Unspecified hypothyroidism Obesity (BMI 30.0-34.9) Obesity, unspecified Spotting Other specified noninflammatory disorder of vagina documented in this encounter [facility] note* Diagnosis Acne rosacea- Primary Rosacea Acquired hypothyroidism Unspecified hypothyroidism Obesity (BMI 30.0-34.9) Obesity, unspecified Scoliosis, unspecified scoliosis type, unspecified spinal region- Primary Degeneration of intervertebral disc of lumbar region, unspecified whether pain present Chronic bilateral back pain, unspecified back location documented in this encounter [facility] note* Diagnosis Acne rosacea- Primary Rosacea Acquired hypothyroidism Unspecified hypothyroidism Obesity (BMI 30.0-34.9) Obesity, unspecified Endometrial thickening on ultrasound- Primary Ovarian cyst, right Other and unspecified ovarian cyst documented in this encounter [facility] note* Diagnosis Acne rosacea- Primary Rosacea Acquired hypothyroidism Unspecified hypothyroidism Obesity (BMI 30.0-34.9) Obesity, unspecified Degeneration of intervertebral disc of lumbar region, unspecified whether pain present- Primary Thoracogenic scoliosis, unspecified spinal region Chronic bilateral low back pain, unspecified whether sciatica present documented in this encounter [facility] note* Diagnosis Acne rosacea- Primary Rosacea Acquired hypothyroidism Unspecified hypothyroidism Obesity (BMI 30.0-34.9) Obesity, unspecified CML (chronic myeloid leukemia) (HCC)- Primary Chronic myeloid leukemia, without mention of having achieved remission [facility] Acne rosacea- Primary Rosacea [...] having achieved remission [facility] Diagnosis Acne rosacea- Primary Rosacea Acquired hypothyroidism Unspecified hypothyroidism Obesity (BMI 30.0-34.9) Obesity, unspecified Endometrial thickening on ultrasound- Primary [facility] Acne rosacea- Primary Rosacea Acquired hypothyroidism Unspecified hypothyroidism Obesity (BMI 30.0-34.9) Obesity, unspecified Endometrial thickening on ultrasound- Primary Ovarian cyst, right Other and unspecified ovarian cyst Adenomyosis of the uterus Paratubal cyst Other noninflammatory disorder of ovary, fallopian tube, and broad ligament [facility] Acne rosacea- Primary Rosacea Acquired hypothyroidism Unspecified hypothyroidism Obesity (BMI 30.0-34.9) Obesity, unspecified Endometrial thickening on ultrasound- Primary Scoliosis, unspecified scoliosis type, unspecified spinal region Degeneration of intervertebral disc of lumbar region, unspecified whether pain present Chronic bilateral back pain, unspecified back location [facility] Acne rosacea- Primary Rosacea Acquired hypothyroidism Unspecified hypothyroidism Obesity (BMI 30.0-34.9) Obesity, unspecified CML (chronic myeloid leukemia) (HCC)- Primary Chronic myeloid leukemia, without mention of having achieved remission [facility] Additional Instructions As discussed, your white blood cell count (leukocytes) is extremely elevated and concerning for leukemia. I spoke with Dr. Uribe. His office will call you tomorrow morning for close follow-up. If you do not hear from their office his information has been included for you. You will need further testing before definitive diagnosis and treatment plan can be made.[facility] Work Phone: [facility] (narrative)* Diagnostic Procedure Only (Routine) - Pending Review Specialty Diagnoses / Procedures Referred By Viky ball Referred To Contact [facility] Diagnoses Encounter for screening mammogram for breast cancer Procedures CHRIS SCREENING SCREENING MAMMOGRAPHY BI 2-VIEW BREAST INC Eden Eller MD [address] [place] [address] [facility] [address] [place] [address] Referral ID Status Reason Start Date Expiration Date Visits Requested Visits Authorized [id number] Pending Review Auto-Generat ed Referral 12/04/2021 01/03/2023 1 1 T [facility] for referral (narrative)* Diagnostic Procedure Only (Routine) - Pending Review Specialty Diagnoses / Procedures Referred By Viky ball Referred To Contact [facility] Diagnoses Encounter for screening mammogram for breast cancer Procedures CHRIS SCREENING SCREENING MAMMOGRAPHY BI 2-VIEW BREAST INC Eden Eller MD [address] [place] [address] [facility] [address] [place] [address] Referral ID Status Reason Start Date Expiration Date Visits Requested Visits Authorized [id number] Pending Review Auto-Generat ed Referral 11/05/2022 12/05/2023 1 1 T [facility] for referral (narrative)* Diagnostic Procedure Only (Routine) - Pending Review Specialty Diagnoses / Procedures Referred By Viky ball Referred To Contact [facility] Diagnoses Encounter for screening mammogram for breast cancer Procedures CHRIS SCREENING SCREENING MAMMOGRAPHY BI 2-VIEW BREAST INC Eden Eller MD [address] [place] [address] [facility] [address] [place] [address] Referral ID Status Reason Start Date Expiration Date Visits Requested Visits Authorized [id number] Pending Review Auto-Generat ed Referral 10/14/2023 11/12/2024 1 1 [facility] for referral (narrative)* Diagnostic Procedure Only (Routine) - Closed Specialty Diagnoses / Procedures Referred By Contac t Referred To Contact [facility] IMAGING Diagnoses Left hip pain Procedures XR HIP GENERAL 3V PELV/AP/LAT LEFT RADEX HIP UNILATERAL WITH PELVIS 2-3 VIEWS Judith Howell APRN.RETURNS SUPERVISOR [address] [place] [address] [place] [address] Referral ID Status Reason Start Date Expiration Date V isits Requested Visits Authorized [id number] Closed Auto-Generate d Referral 12/17/2023 01/15/2025 1 1 * Consult, Test, Treat (Routine) - Authorized Specialty Diagnoses / Procedures Referred By Contac t Referred To Contact Ophthalmology Diagnoses Eye exam, routine Procedures CONSULT TO OPHTHALMOLOGY OFFICE/OUTPATIENT [facility] 60 MINUTES Judith Howell APRN.RETURNS SUPERVISOR [address] [place] [address] Referral ID Status Reason Start Date Expiration Date Visits Requested Visits Authorized [id number] Authorized PCP Requested Referral 12/17/2023 12/16/2024 1 1 [facility] for referral (narrative)* Diagnostic Procedure Only (Routine) - Closed Specialty Diagnoses / Procedures Referred By Contac t Referred To Contact XR IMAGING Diagnoses Left hip pain Procedures XR HIP GENERAL 3V PELV/AP/LAT LEFT RADEX HIP UNILATERAL WITH PELVIS 2-3 VIEWS Judith Howell APRN.RETURNS SUPERVISOR [address] [place] [address] [place] [address] Referral ID Status Reason Start Date Expiration Date V isits Requested Visits Authorized [id number] Closed Auto-Generate d Referral 12/17/2023 01/15/2025 1 1 [facility] for referral (narrative)* Diagnostic Procedure Only (Routine) - Closed Specialty Diagnoses / Procedures Referred By Contac t Referred To Contact XR IMAGING Diagnoses Scoliosis, unspecified scoliosis type, unspecified spinal region Procedures XR SCOLIOSIS PA STAND/LAT 2V RADEX ENTIR THRC LMBR CRV SAC SPI W/SKULL 2/3 VW Eden Petersen MD [address] [place] [address] [place] [address] Referral ID Status Reason Start Date Expiration Date V isits Requested Visits Authorized [id number] Closed Auto-Generate d Referral 06/21/2024 07/21/2025 1 1 * Diagnostic Procedure Only (Routine) - Authorized Specialty Diagnoses / Procedures Referred By Contac t Referred To Contact US IMAGING Diagnoses Spotting Procedures US FEMALE PELVIS TRANSVAG US TRANSVAGINAL Eden Petersen MD [address] [place] [address] [place] [address] Referral ID Status Reason Start Date Expiration Date Visits Requested Visits Authorized [id number] Authorized Auto-Generat ed Referral 4 07/21/2025 1 1 * Diagnostic Procedure Only (Routine) - Authorized Specialty Diagnoses / Procedures Referred By Contac t Referred To Contact US IMAGING Diagnoses Spotting Procedures US FEMALE PELVIS TRANSABD LTD US PELVIC NONOBSTETRIC IMAGE DCMTN LIMITED/F/U Eden Petersen MD [address] [place] [address] [place] [address] Referral ID Status Reason Start Date Expiration Date Visits Requested Visits Authorized [id number] Authorized Auto-Generat ed Referral 4 07/21/2025 [address] [facility] Diagnostic Procedure Only (Routine) - Authorized Specialty Diagnoses / Procedures Referred By Contac t Referred To Contact [facility] Diagnoses Endometrial thickening on ultrasound Ovarian cyst, right Procedures PELVIC US WHI US PELVIC NONOBSTETRIC REAL-TIME IMAGE COMPLETE Marga Crowe MD [address] [place] [address] [facility] [address] [place] [address] Referral ID Status Reason Start Date Expiration Date Visits Requested Visits Authorized [id number] Authorized Auto-Generat ed Referral 09/05/2024 09/05/2025 1 1 [facility] for visit Narrative* Diagnostic Procedure Only (Routine) - Closed Specialty Diagnoses / Procedures Referred By Contac t Referred To Contact XR IMAGING Diagnoses Left hip pain Procedures XR HIP GENERAL 3V PELV/AP/LAT LEFT RADEX HIP UNILATERAL WITH PELVIS 2-3 VIEWS Judith Howell APRN.RETURNS SUPERVISOR [address] [place] [address] Xr Imaging [facility] Referral ID Status Reason Start Date Expiration Date V isits Requested Visits Authorized [id number] Closed Auto-Generate d Referral 12/17/2023 01/15/2025 1 1 [facility] for visit Narrative* Diagnostic Procedure Only (Routine) - Closed Specialty Diagnoses / Procedures Referred By Contac t Referred To Contact XR IMAGING Diagnoses Scoliosis, unspecified scoliosis type, unspecified spinal region Procedures XR SCOLIOSIS PA STAND/LAT 2V RADEX ENTIR THRC LMBR CRV SAC SPI W/SKULL 2/3 VW Eden Petersen MD [address] [place] [address] [place] [address] Referral ID Status Reason Start Date Expiration Date V isits Requested Visits Authorized [id number] Closed Auto-Generate d Referral 06/21/2024 07/21/2025 1 1 [facility] for visit Narrative* Diagnostic Procedure Only (Routine) - Closed Specialty Diagnoses / Procedures Referred By Contac t Referred To Contact [facility] Diagnoses Endometrial thickening on ultrasound Ovarian cyst, right Procedures PELVIC US WHI US PELVIC NONOBSTETRIC REAL-TIME IMAGE COMPLETE Marga Crowe MD [address] [place] [address] Phone: tel: fax: [address] [address] Referral ID Status Reason Start Date Expiration Date V isits Requested Visits Authorized [id number] Closed Auto-Generate d Referral 09/05/2024 09/05/2025 1 1 [facility] Reason for Referral Specialty Diagnoses / Procedures Referred By Contac t Referred To Contact Dermatology Diagnoses Hair loss Procedures CONSULT TO DERMATOLOGY Eden Petersen MD [address] [place] [address] Referral ID Status Reason Start Date Expiration Date Visits Requested Visits Authorized [id number] Ref Not Required PCP Requested Referral 09/10/2022 09/10/2023 1 1 Specialty Diagnoses / Procedures Referred By Contac t Referred To Contact [facility] Diagnoses Special screening for malignant neoplasms, colon Procedures COLONOSCOPY SCREENING COLONOSCOPY FLX DX W/COLLJ SPEC WHEN PFRMD Eden Petersen MD [address] [place] [address] [address] Referral ID Status Reason Start Date Expiration Date Visits Requested Visits Authorized [id number] Pending Review Auto-Generat ed Referral 09/10/2022 09/10/2023 1 1 Specialty Diagnoses / Procedures Referred By Contac t Referred To Contact Dermatology Diagnoses Rash Procedures CONSULT TO DERMATOLOGY Judith Howell APRN.RETURNS SUPERVISOR [address] [place] [address] Referral ID Status Reason Start Date Expiration Date Visits Requested Visits Authorized [id number] Ref Not Required PCP Requested Referral 04/30/2023 04/29/2024 1 1 Specialty Diagnoses / Procedures Referred By Contac t Referred To Contact Gynecology Diagnoses Abnormal menses Procedures CONSULT TO GYNECOLOGY OFFICE/OUTPATIENT NEW HIGH MDM 60 MINUTES Judith Howell APRN.RETURNS SUPERVISOR [address] [place] [address] Referral ID Status Reason Start Date Expiration Date Visits Requested Visits Authorized [id number] Authorized PCP Requested Referral Auto-Generate d Referral 04/20/2024 04/20/2025 1 1 Summary Purpose Family History No Family History Records FoundNo Family History Records FoundNo Family History Records FoundNo Family History Records FoundNo Family History Records Found Advance Directives No Advanced Directives Records Found Advance Directive Response Recorded Date/ Time Living Will No April 01 3 4:49pm Power of Aws Architect No April 01 023 4:49pm Chief Complaint [...] or prosecute any alcohol or drug abuse patient.[facility] the event this information is protected by the Federal Confidentiality of Alcohol and Drug Abuse Patient Records regulations: The Federal rules restrict any use of the information to criminally investigate or prosecute any alcohol or drug abuse patient.[facility] HospitalIn the event this information is protected by the Federal Confidentiality of Alcohol and Drug Abuse Patient Records regulations: The Federal rules restrict any use of the information to criminally investigate or prosecute any alcohol or drug abuse patient.[facility] HospitalIn the event this information is protected by the Federal Confidentiality of Alcohol and Drug Abuse Patient Records regulations: The Federal rules restrict any use of the information to criminally investigate or prosecute any alcohol or drug abuse patient.[facility] HospitalIn the event this information is protected by the Federal Confidentiality of Alcohol and Drug Abuse Patient Records regulations: The Federal rules restrict any use of the information to criminally investigate or prosecute any alcohol or drug abuse patient.[facility] HospitalIn the event this information is protected by the Federal Confidentiality of Alcohol and Drug Abuse Patient Records regulations: The Federal rules restrict any use of the information to criminally investigate or prosecute any alcohol or drug abuse patient.[facility] HospitalIn the event this information is protected by the Federal Confidentiality of Alcohol and Drug Abuse Patient Records regulations: The Federal rules restrict any use of the information to criminally investigate or prosecute any alcohol or drug abuse patient.[facility] HospitalIn the event this information is protected by the Federal Confidentiality of Alcohol and Drug Abuse Patient Records regulations: The Federal rules restrict any use of the information to criminally investigate or prosecute any alcohol or drug abuse patient.[facility] HospitalIn the event this information is protected by the Federal Confidentiality of Alcohol and Drug Abuse Patient Records regulations: The Federal rules restrict any use of the information to criminally investigate or prosecute any alcohol or drug abuse patient.[facility] HospitalIn the event this information is protected by the Federal Confidentiality of Alcohol and Drug Abuse Patient Records regulations: The Federal rules restrict any use of the information to criminally investigate or prosecute any alcohol or drug abuse patient.[facility] HospitalIn the event this information is protected by the Federal Confidentiality of Alcohol and Drug Abuse Patient Records regulations: The Federal rules restrict any use of the information to criminally investigate or prosecute any alcohol or drug abuse patient.[facility] HospitalIn the event this information is protected by the Federal Confidentiality of Alcohol and Drug Abuse Patient Records regulations: The Federal rules restrict any use of the information to criminally investigate or prosecute any alcohol or drug abuse patient.[facility] HospitalIn the event this information is protected by the Federal Confidentiality of Alcohol and Drug Abuse Patient Records regulations: The Federal rules restrict any use of the information to criminally investigate or prosecute any alcohol or drug abuse patient.[facility] HospitalIn the event this information is protected by the Federal Confidentiality of Alcohol and Drug Abuse Patient Records regulations: The Federal rules restrict any use of the information to criminally investigate or prosecute any alcohol or drug abuse patient.[facility] HospitalIn the event this information is protected by the Federal Confidentiality of Alcohol and Drug Abuse Patient Records regulations: The Federal rules restrict any use of the information to criminally investigate or prosecute any alcohol or drug abuse patient.[facility] HospitalIn the event this information is protected by the Federal Confidentiality of Alcohol and Drug Abuse Patient Records regulations: The Federal rules restrict any use of the information to criminally investigate or prosecute any alcohol or drug abuse patient.[facility] HospitalIn the event this information is protected by the Federal Confidentiality of Alcohol and Drug Abuse Patient Records regulations: The Federal rules restrict any use of the information to criminally investigate or prosecute any alcohol or drug abuse patient.[facility] HospitalIn the event this information is protected by the Federal Confidentiality of Alcohol and Drug Abuse Patient Records regulations: The Federal rules restrict any use of the information to criminally investigate or prosecute any alcohol or drug abuse patient.[facility] HospitalIn the event this information is protected by the Federal Confidentiality of Alcohol and Drug Abuse Patient Records regulations: The Federal rules restrict any use of the information to criminally investigate or prosecute any alcohol or drug abuse patient.[facility] HospitalIn the event this information is protected by the Federal Confidentiality of Alcohol and Drug Abuse Patient Records regulations: The Federal rules restrict any use of the information to criminally investigate or prosecute any alcohol or drug abuse patient.[facility] HospitalIn the event this information is protected by the Federal Confidentiality of Alcohol and Drug Abuse Patient Records regulations: The Federal rules restrict any use of the information to criminally investigate or prosecute any alcohol or drug abuse patient.[facility] HospitalIn the event this information is protected by the Federal Confidentiality of Alcohol and Drug Abuse Patient Records regulations: The Federal rules restrict any use of the information to criminally investigate or prosecute any alcohol or drug abuse patient.[facility] HospitalIn the event this information is protected by the Federal Confidentiality of Alcohol and Drug Abuse Patient Records regulations: The Federal rules restrict any use of the information to criminally investigate or prosecute any alcohol or drug abuse patient.[facility] HospitalIn the event this information is protected by the Federal Confidentiality of Alcohol and Drug Abuse Patient Records regulations: The Federal rules restrict any use of the information to criminally investigate or prosecute any alcohol or drug abuse patient.[facility] HospitalIn the event this information is protected by the Federal Confidentiality of Alcohol and Drug Abuse Patient Records regulations: The Federal rules restrict any use of the information to criminally investigate or prosecute any alcohol or drug abuse patient.[facility] HospitalIn the event this information is protected by the Federal Confidentiality of Alcohol and Drug Abuse Patient Records regulations: The Federal rules restrict any use of the information to criminally investigate or prosecute any alcohol or drug abuse patient.[facility] HospitalIn the event this information is protected by the Federal Confidentiality of Alcohol and Drug Abuse Patient Records regulations: The Federal rules restrict any use of the information to criminally investigate or prosecute any alcohol or drug abuse patient.[facility] HospitalIn the event this information is protected by the Federal Confidentiality of Alcohol and Drug Abuse Patient Records regulations: The Federal rules restrict any use of the information to criminally investigate or prosecute any alcohol or drug abuse patient.[facility] HospitalIn the event this information is protected by the Federal Confidentiality of Alcohol and Drug Abuse Patient Records regulations: The Federal rules restrict any use of the information to criminally investigate or prosecute any alcohol or drug abuse patient.[facility] HospitalIn the event this information is protected by the Federal Confidentiality of Alcohol and Drug Abuse Patient Records regulations: The Federal rules restrict any use of the information to criminally investigate or prosecute any alcohol or drug abuse patient.[facility] HospitalIn the event this information is protected by the Federal Confidentiality of Alcohol and Drug Abuse Patient Records regulations: The Federal rules restrict any use of the information to criminally investigate or prosecute any alcohol or drug abuse patient.[facility] HospitalIn the event this information is protected by the Federal Confidentiality of Alcohol and Drug Abuse Patient Records regulations: The Federal rules restrict any use of the information to criminally investigate or prosecute any alcohol or drug abuse patient.[facility] HospitalIn the event this information is protected by the Federal Confidentiality of Alcohol and Drug Abuse Patient Records regulations: The Federal rules restrict any use of the information to criminally investigate or prosecute any alcohol or drug abuse patient.[facility] HospitalIn the event this information is protected by the Federal Confidentiality of Alcohol and Drug Abuse Patient Records regulations: The Federal rules restrict any use of the information to criminally investigate or prosecute any alcohol or drug abuse patient.[facility] HospitalIn the event this information is protected by the Federal Confidentiality of Alcohol and Drug Abuse Patient Records regulations: The Federal rules restrict any use of the information to criminally investigate or prosecute any alcohol or drug abuse patient.[facility] HospitalIn the event this information is protected by the Federal Confidentiality of Alcohol and Drug Abuse Patient Records regulations: The Federal rules restrict any use of the information to criminally investigate or prosecute any alcohol or drug abuse patient.[facility] HospitalIn the event this information is protected by the Federal Confidentiality of Alcohol and Drug Abuse Patient Records regulations: The Federal rules restrict any use of the information to criminally investigate or prosecute any alcohol or drug abuse patient.[facility] HospitalIn the event this information is protected by the Federal Confidentiality of Alcohol and Drug Abuse Patient Records regulations: The Federal rules restrict any use of the information to criminally investigate or prosecute any alcohol or drug abuse patient.[facility] HospitalIn the event this information is protected by the Federal Confidentiality of Alcohol and Drug Abuse Patient Records regulations: The Federal rules restrict any use of the information to criminally investigate or prosecute any alcohol or drug abuse patient.[facility] HospitalIn the event this information is protected by the Federal Confidentiality of Alcohol and Drug Abuse Patient Records regulations: The Federal rules restrict any use of the information to criminally investigate or prosecute any alcohol or drug abuse patient.[facility] HospitalIn the event this information is protected by the Federal Confidentiality of Alcohol and Drug Abuse Patient Records regulations: The Federal rules restrict any use of the information to criminally investigate or prosecute any alcohol or drug abuse patient.[facility] HospitalIn the event this information is protected by the Federal Confidentiality of Alcohol and Drug Abuse Patient Records regulations: The Federal rules restrict any use of the information to criminally investigate or prosecute any alcohol or drug abuse patient.[facility] HospitalIn the event this information is protected by the Federal Confidentiality of Alcohol and Drug Abuse Patient Records regulations: The Federal rules restrict any use of the information to criminally investigate or prosecute any alcohol or drug abuse patient.[facility] HospitalIn the event this information is protected by the Federal Confidentiality of Alcohol and Drug Abuse Patient Records regulations: The Federal rules restrict any use of the information to criminally investigate or prosecute any alcohol or drug abuse patient.[facility] HospitalIn the event this information is protected by the Federal Confidentiality of Alcohol and Drug Abuse Patient Records regulations: The Federal rules restrict any use of the information to criminally investigate or prosecute any alcohol or drug abuse patient.[facility] HospitalIn the event this information is protected by the Federal Confidentiality of Alcohol and Drug Abuse Patient Records regulations: The Federal rules restrict any use of the information to criminally investigate or prosecute any alcohol or drug abuse patient.[facility] HospitalIn the event this information is protected by the Federal Confidentiality of Alcohol and Drug Abuse Patient Records regulations: The Federal rules restrict any use of the information to criminally investigate or prosecute any alcohol or drug abuse patient.[facility] HospitalIn the event this information is protected by the Federal Confidentiality of Alcohol and Drug Abuse Patient Records regulations: The Federal rules restrict any use of the information to criminally investigate or prosecute any alcohol or drug abuse patient.[facility] HospitalIn the event this information is protected by the Federal Confidentiality of Alcohol and Drug Abuse Patient Records regulations: The Federal rules restrict any use of the information to criminally investigate or prosecute any alcohol or drug abuse patient.[facility] HospitalIn the event this information is protected by the Federal Confidentiality of Alcohol and Drug Abuse Patient Records regulations: The Federal rules restrict any use of the information to criminally investigate or prosecute any alcohol or drug abuse patient.[facility] HospitalIn the event this information is protected by the Federal Confidentiality of Alcohol and Drug Abuse Patient Records regulations: The Federal rules restrict any use of the information to criminally investigate or prosecute any alcohol or drug abuse patient.[facility] HospitalIn the event this information is protected by the Federal Confidentiality of Alcohol and Drug Abuse Patient Records regulations: The Federal rules restrict any use of the information to criminally investigate or prosecute any alcohol or drug abuse patient.[facility] HospitalIn the event this information is protected by the Federal Confidentiality of Alcohol and Drug Abuse Patient Records regulations: The Federal rules restrict any use of the information to criminally investigate or prosecute any alcohol or drug abuse patient.[facility] HospitalIn the event this information is protected by the Federal Confidentiality of Alcohol and Drug Abuse Patient Records regulations: The Federal rules restrict any use of the information to criminally investigate or prosecute any alcohol or drug abuse patient.[facility] HospitalIn the event this information is protected by the Federal Confidentiality of Alcohol and Drug Abuse Patient Records regulations: The Federal rules restrict any use of the information to criminally investigate or prosecute any alcohol or drug abuse patient.[facility] HospitalIn the event this information is protected by the Federal Confidentiality of Alcohol and Drug Abuse Patient Records regulations: The Federal rules restrict any use of the information to criminally investigate or prosecute any alcohol or drug abuse patient.[facility] HospitalIn the event this information is protected by the Federal Confidentiality of Alcohol and Drug Abuse Patient Records regulations: The Federal rules restrict any use of the information to criminally investigate or prosecute any alcohol or drug abuse patient.[facility] HospitalIn the event this information is protected by the Federal Confidentiality of Alcohol and Drug Abuse Patient Records regulations: The Federal rules restrict any use of the information to criminally investigate or prosecute any alcohol or drug abuse patient.[facility] HospitalIn the event this information is protected by the Federal Confidentiality of Alcohol and Drug Abuse Patient Records regulations: The Federal rules restrict any use of the information to criminally investigate or prosecute any alcohol or drug abuse patient.[facility] HospitalIn the event this information is protected by the Federal Confidentiality of Alcohol and Drug Abuse Patient Records regulations: The Federal rules restrict any use of the information to criminally investigate or prosecute any alcohol or drug abuse patient.[facility] HospitalIn the event this information is protected by the Federal Confidentiality of Alcohol and Drug Abuse Patient Records regulations: The Federal rules restrict any use of the information to criminally investigate or prosecute any alcohol or drug abuse patient.[facility] HospitalIn the event this information is protected by the Federal Confidentiality of Alcohol and Drug Abuse Patient Records regulations: The Federal rules restrict any use of the information to criminally investigate or prosecute any alcohol or drug abuse patient.[facility] HospitalIn the event this information is protected by the Federal Confidentiality of Alcohol and Drug Abuse Patient Records regulations: The Federal rules restrict any use of the information to criminally investigate or prosecute any alcohol or drug abuse patient.[facility] HospitalIn the event this information is protected by the Federal Confidentiality of Alcohol and Drug Abuse Patient Records regulations: The Federal rules restrict any use of the information to criminally investigate or prosecute any alcohol or drug abuse patient.[facility] HospitalIn the event this information is protected by the Federal Confidentiality of Alcohol and Drug Abuse Patient Records regulations: The Federal rules restrict any use of the information to criminally investigate or prosecute any alcohol or drug abuse patient.[facility] HospitalIn the event this information is protected by the Federal Confidentiality of Alcohol and Drug Abuse Patient Records regulations: The Federal rules restrict any use of the information to criminally investigate or prosecute any alcohol or drug abuse patient.[facility] HospitalIn the event this information is protected by the Federal Confidentiality of Alcohol and Drug Abuse Patient Records regulations: The Federal rules restrict any use of the information to criminally investigate or prosecute any alcohol or drug abuse patient.[facility] HospitalIn the event this information is protected by the Federal Confidentiality of Alcohol and Drug Abuse Patient Records regulations: The Federal rules restrict any use of the information to criminally investigate or prosecute any alcohol or drug abuse patient.[facility] HospitalIn the event this information is protected by the Federal Confidentiality of Alcohol and Drug Abuse Patient Records regulations: The Federal rules restrict any use of the information to criminally investigate or prosecute any alcohol or drug abuse patient.[facility] HospitalIn the event this information is protected by the Federal Confidentiality of Alcohol and Drug Abuse Patient Records regulations: The Federal rules restrict any use of the information to criminally investigate or prosecute any alcohol or drug abuse patient.[facility] HospitalIn the event this information is protected by the Federal Confidentiality of Alcohol and Drug Abuse Patient Records regulations: The Federal rules restrict any use of the information to criminally investigate or prosecute any alcohol or drug abuse patient.[facility] HospitalIn the event this information is protected by the Federal Confidentiality of Alcohol and Drug Abuse Patient Records regulations: The Federal rules restrict any use of the information to criminally investigate or prosecute any alcohol or drug abuse patient.[facility] HospitalIn the event this information is protected by the Federal Confidentiality of Alcohol and Drug Abuse Patient Records regulations: The Federal rules restrict any use of the information to criminally investigate or prosecute any alcohol or drug abuse patient.[facility] HospitalIn the event this information is protected by the Federal Confidentiality of Alcohol and Drug Abuse Patient Records regulations: The Federal rules restrict any use of the information to criminally investigate or prosecute any alcohol or drug abuse patient.[facility] HospitalIn the event this information is protected by the Federal Confidentiality of Alcohol and Drug Abuse Patient Records regulations: The Federal rules restrict any use of the information to criminally investigate or prosecute any alcohol or drug abuse patient.[facility] HospitalIn the event this information is protected by the Federal Confidentiality of Alcohol and Drug Abuse Patient Records regulations: The Federal rules restrict any use of the information to criminally investigate or prosecute any alcohol or drug abuse patient.[facility] HospitalIn the event this information is protected by the Federal Confidentiality of Alcohol and Drug Abuse Patient Records regulations: The Federal rules restrict any use of the information to criminally investigate or prosecute any alcohol or drug abuse patient.[facility] HospitalIn the event this information is protected by the Federal Confidentiality of Alcohol and Drug Abuse Patient Records regulations: The Federal rules restrict any use of the information to criminally investigate or prosecute any alcohol or drug abuse patient.[facility] HospitalIn the event this information is protected by the Federal Confidentiality of Alcohol and Drug Abuse Patient Records regulations: The Federal rules restrict any use of the information to criminally investigate or prosecute any alcohol or drug abuse patient.[facility] HospitalIn the event this information is protected by the Federal Confidentiality of Alcohol and Drug Abuse Patient Records regulations: The Federal rules restrict any use of the information to criminally investigate or prosecute any alcohol or drug abuse patient.[facility] HospitalIn the event this information is protected by the Federal Confidentiality of Alcohol and Drug Abuse Patient Records regulations: The Federal rules restrict any use of the information to criminally investigate or prosecute any alcohol or drug abuse patient.[facility] HospitalIn the event this information is protected by the Federal Confidentiality of Alcohol and Drug Abuse Patient Records regulations: The Federal rules restrict any use of the information to criminally investigate or prosecute any alcohol or drug abuse patient.[facility] HospitalIn the event this information is protected by the Federal Confidentiality of Alcohol and Drug Abuse Patient Records regulations: The Federal rules restrict any use of the information to criminally investigate or prosecute any alcohol or drug abuse patient.[facility] HospitalIn the event this information is protected by the Federal Confidentiality of Alcohol and Drug Abuse Patient Records regulations: The Federal rules restrict any use of the information to criminally investigate or prosecute any alcohol or drug abuse patient.[facility] HospitalIn the event this information is protected by the Federal Confidentiality of Alcohol and Drug Abuse Patient Records regulations: The Federal rules restrict any use of the information to criminally investigate or prosecute any alcohol or drug abuse patient.[facility] HospitalIn the event this information is protected by the Federal Confidentiality of Alcohol and Drug Abuse Patient Records regulations: The Federal rules restrict any use of the information to criminally investigate or prosecute any alcohol or drug abuse patient.[facility] HospitalIn the event this information is protected by the Federal Confidentiality of Alcohol and Drug Abuse Patient Records regulations: The Federal rules restrict any use of the information to criminally investigate or prosecute any alcohol or drug abuse patient.[facility] Reason for Visit (unrecogniz ed section and content) Reason Comments Endometrial Biopsy Specialty Diagnoses / Procedures Referred By Kikoac t Referred To Contact Urogynecology Physician / NURSING HOME MANAGER Diagnoses Endometrial thickening on ultrasound Endometrial thickening on ultrasound [R93.89]; Ovarian cyst, right [N83.201] Procedures ENDOMETRIAL BX W/WO ENDOCERVIX BX W/O DILAT SPX ENDOMETRIAL BIOPSY Marga Crowe MD [address] [address] Phone: tel: fax: Marga Crowe MD [address] [place] [address] Phone: tel: fax: Referral ID Status Reason Start Date Expiration Date Visits Re quested Visits Authorized [id number] Closed 09/20/2024 08/09/2025 1 1 Reason Comments [...] TRANSVAG US TRANSVAGINAL Eden Petersen MD [address] [place] [address] [place] [id number] Referral ID Status Reason Start Date Expiration Date V isits Requested Visits Authorized [id number] Closed Auto-Generate d Referral 06/21/2024 07/21/2025 1 1 Reason Comments PT Eval Specialty Diagnoses / Procedures Referred By Contac t Referred To Contact [facility] Diagnoses Scoliosis, unspecified scoliosis type, unspecified spinal region Degeneration of intervertebral disc of lumbar region, unspecified whether pain present Chronic bilateral back pain, unspecified back location Procedures CONSULT TO PHYSICAL THERAPY [facility] 45 MINS Eden Petersen MD [address] [place] [address] [facility] [place] [address] [place] [address] Referral ID Status Reason Start Date Expiration Date Visits Requested Visits Authorized [id number] Authorized Auto-Generat ed Referral 08/10/2023 08/09/2024 30 30 Reason Comments insurance approval Reason Onset Date Comments Refill Request 09/03/2024 Specialty Diagnoses / Procedures Referred By Contac t Referred To Contact Gynecology Diagnoses Endometrial thickening on ultrasound Procedures CONSULT TO GYNECOLOGY OFFICE/OUTPATIENT [facility] 60 MINUTES Eden Petersen MD [address] [place] [address] Referral ID Status Reason Start Date Expiration Date V isits Requested Visits Authorized [id number] Closed PCP Requested Referral Auto-Generated Referral 07/04/2024 [...] location [M54.9, G89.29] Eden Petersen MD [address] [place] [address] [facility] [address] [place] [address] Referral ID Status Reason Start Date Expiration Date V isits Requested Visits Authorized [id number] Authorized 08/10/2024 08/09/2025 30 30 Reason Comments F/U 3 Month Specialty Diagnoses / Procedures Referred By Contac t Referred To Contact Internal Medicine / INTERNAL MEDICINE Diagnoses Examination 3 mo follow up Procedures OFFICE/OUTPATIENT ESTABLISHED MOD MDM 30 MIN 4C EST Eden Petersen MD [address] [place] [address] Phone: tel: fax: [place] [address] [place] [id number] Phone: tel: fax: Referral ID Status Reason Start Date Expiration Date Visits Re quested Visits Authorized [id number] Closed 09/23/2024 08/09/2025 1 1 Reason Onset Date Comments Refill Request 09/27/2024 Reason Onset Date Comments Refill Request 10/13/2024 Reason Comments Results Xray back Care Teams (unrecognized sec tion and content) Stock Saw Operator Relationship Specialty Start Date End Date Eden Petersen MD [address] [place], [place] [id number] PCP - General Internal Medicine 03/13/17 Stock Saw Operator Relationship Specialty Start Date End Date Eden Petersen MD [address] [place], [place] [id number] PCP - General Internal Medicine 03/13/17 Stock Saw Operator Relationship Specialty Start Date End Date Eden Petersen MD [address] [place], [place] [id number] PCP - General Internal Medicine 03/13/17 Stock Saw Operator Relationship Specialty Start Date End Date Eden Petesren MD [address] [place] [address] PCP - General Internal Medicine 03/13/17 Stock Saw Operator Relationship Specialty Start Date End Date Eden Petersen MD [address] [place] [address] PCP - General Internal Medicine 03/13/17 Stock Saw Operator Relationship Specialty Start Date End Date Eden Petersen MD [address] [place] [address] PCP - General Internal Medicine 03/13/17 Stock Saw Operator Relationship Specialty Start Date End Date Eden Petersen MD [address] [place] [address] PCP - General Internal Medicine 03/13/17 Stock Saw Operator Relationship Specialty Start Date End Date Eden Petersen MD [address] [place] [address] PCP - General Internal Medicine 03/13/17 Stock Saw Operator Relationship Specialty Start Date End Date Eden Petersen MD [address] [place] [address] PCP - General Internal Medicine 03/13/17 Stock Saw Operator Relationship Specialty Start Date End Date Eden Petersen MD [address] [place] [address] PCP - General Internal Medicine 03/13/17 Stock Saw Operator Relationship Specialty Start Date End Date Eden Petersen MD [address] [facility] [place] [address] PCP - General Internal Medicine 03/13/17 Stock Saw Operator Relationship Specialty Start Date End Date Eden Petersen MD [address] [place] [address] PCP - General Internal Medicine 03/13/17 Stock Saw Operator Relationship Specialty Start Date End Date Eden Petersen MD [address] [facility] [address] PCP - General Internal Medicine 03/13/17 Team Status: Active Member Role Status Dates Dr. Eden Petersen MD Primary Care Provider Active Team Status: Inactive Member Role Status Dates Dr. Arleen Rodríguez MD Emergency Provider Active Dr. Eden Petersen MD Primary Care Provider Active Stock Saw Operator Relationship Specialty Start Date End Date Eden Petersen MD [address] [place] [address] PCP - General Internal Medicine 03/13/17 Stock Saw Operator Relationship Specialty Start Date End Date Eden Petersen MD [address] [facility] [address] PCP - General Internal Medicine 03/13/17 Prince Uribe MD [address] [place] [address] Hematology/Oncology 04/02/23 Stock Saw Operator Relationship Specialty Start Date End Date Eden Petersen MD [address] [facility] [address] PCP - General Internal Medicine 03/13/17 Prince Uribe MD [address] [place] [address] Hematology/Oncology 04/02/23 Stock Saw Operator Relationship Specialty Start Date End Date Eden Petersen MD [address] [place] [address] PCP - General Internal Medicine 03/13/17 Prince Uribe MD [address] [place] [address] Hematology/Oncology 04/02/23 Stock Saw Operator Relationship Specialty Start Date End Date Eden Petersen MD [address] [place] [address] PCP - General Internal Medicine 03/13/17 Prince Uribe MD [address] [place] [address] Hematology/Oncology 04/02/23 Stock Saw Operator Relationship Specialty Start Date End Date Eden Petersen MD [address] [place] [address] PCP - General Internal Medicine 03/13/17 Prince Uribe MD [address] [place] [address] Hematology/Oncology 04/02/23 Stock Saw Operator Relationship Specialty Start Date End Date Eden Petersen MD [address] [place] [address] PCP - General Internal Medicine 03/13/17 Prince Uribe MD [address] [place] [address] Hematology/Oncology 04/02/23 Stock Saw Operator Relationship Specialty Start Date End Date Eden Petersen MD [address] [place] [address] PCP - General Internal Medicine 03/13/17 Prince Uribe MD [address] [place] [address] Hematology/Oncology 04/02/23 Stock Saw Operator Relationship Specialty Start Date End Date Eden Petersen MD [address] [place] [address] PCP - General Internal Medicine 03/13/17 Prince Uribe MD [address] [place] [address] Hematology/Oncology 04/02/23 Stock Saw Operator Relationship Specialty Start Date End Date Eden Petersen MD [address] [place] [address] PCP - General Internal Medicine 03/13/17 Prince Uribe MD [address] [place] [address] Hematology/Oncology 04/02/23 Stock Saw Operator Relationship Specialty Start Date End Date Eden Petersen MD [address] [place] [address] PCP - General Internal Medicine 03/13/17 Prince Uribe MD [address] [place] [address] Hematology/Oncology 04/02/23 Annie Alba, LOAN [address] [place] [address] Specialty Manager Digital Hematology/Oncology 06/11/23 Stock Saw Operator Relationship Specialty Start Date End Date Eden Petersen MD [address] [place] [address] PCP - General Internal Medicine 03/13/17 Prince Uribe MD [address] [place] [address] Hematology/Oncology 04/02/23 Annie Alba, RN [address] [place] [address] Specialty Manager Digital Hematology/Oncology 06/11/23 Stock Saw Operator Relationship Specialty Start Date End Date Eden Petersen MD [address] [place] [address] PCP - General Internal Medicine 03/13/17 Prince Uribe MD [address] [place] [address] Hematology/Oncology 04/02/23 Annie Alba, LOAN [address] [place] [address] Specialty Manager Digital Hematology/Oncology 06/11/23 Stock Saw Operator Relationship Specialty Start Date End Date Eden Petersen MD [address] [place] [address] PCP - General Internal Medicine 03/13/17 Prince Uribe MD [address] [place] [address] Hematology/Oncology 04/02/23 Annie Alba, RN [address] [place] [address] Specialty Manager Digital Hematology/Oncology 06/11/23 Stock Saw Operator Relationship Specialty Start Date End Date Eden Petersen MD [address] [place] [address] PCP - General Internal Medicine 03/13/17 Prince Uribe MD [address] [place] [address] Hematology/Oncology 04/02/23 Annie Alba, RN [address] [place] [address] Specialty Manager Digital Hematology/Oncology 06/11/23 Stock Saw Operator Relationship Specialty Start Date End Date Eden Petersen MD [address] [place] [address] PCP - General Internal Medicine 03/13/17 Prince Uribe MD [address] [place] [address] Hematology/Oncology 04/02/23 Annie Alba, LOAN [address] [place] [address] Specialty Manager Digital Hematology/Oncology 06/11/23 Stock Saw Operator Relationship Specialty Start Date End Date Eden Petersen MD [address] [place] [address] PCP - General Internal Medicine 03/13/17 Prince Uribe MD [address] [place] [address] Hematology/Oncology 04/02/23 Annie Alba, RN [address] [place] [address] Specialty Manager Digital Hematology/Oncology 06/11/23 Stock Saw Operator Relationship Specialty Start Date End Date Eden Petersen MD [address] [place] [address] PCP - General Internal Medicine 03/13/17 Prince Uribe MD [address] [place] [address] Hematology/Oncology 04/02/23 Annie Alba, LOAN [address] [place] [address] Specialty Manager Digital Hematology/Oncology 06/11/23 Stock Saw Operator Relationship Specialty Start Date End Date Eden Petersen MD [address] [place] [address] PCP - General Internal Medicine 03/13/17 Prince Uribe MD [address] [place] [address] Hematology/Oncology 04/02/23 Annie Alba, LOAN [address] [place] [address] Specialty Manager Digital Hematology/Oncology 06/11/23 Stock Saw Operator Relationship Specialty Start Date End Date Eden Petersen MD [address] [place] [address] PCP - General Internal Medicine 03/13/17 Prince Uribe MD [address] [place] [address] Hematology/Oncology 04/02/23 Annie Alba, LOAN [address] [place] [address] Specialty Manager Digital Hematology/Oncology 06/11/23 Stock Saw Operator Relationship Specialty Start Date End Date Eden Petersen MD [address] [place] [address] PCP - General Internal Medicine 03/13/17 Prince Uribe MD [address] [place] [address] Hematology/Oncology 04/02/23 Annie Alba, RN [address] [place] [address] Specialty Manager Digital Hematology/Oncology 06/11/23 Stock Saw Operator Relationship Specialty Start Date End Date Eden Petersen MD [address] [place] [address] PCP - General Internal Medicine 03/13/17 Prince Uribe MD [address] [place] [address] Hematology/Oncology 04/02/23 Annie Alba, RN [address] [place] [address] Specialty Manager Digital Hematology/Oncology 06/11/23 Stock Saw Operator Relationship Specialty Start Date End Date Eden Petersen MD [address] [place] [address] PCP - General Internal Medicine 03/13/17 Prince Uribe MD [address] [place] [address] Hematology/Oncology 04/02/23 Annie Alba, RN [address] [place] [address] Specialty Manager Digital Hematology/Oncology 06/11/23 Stock Saw Operator Relationship Specialty Start Date End Date Eden Petersen MD [address] [place] [address] PCP - General Internal Medicine 03/13/17 Prince Uribe MD [address] [place] [address] Hematology/Oncology 04/02/23 Annie Alba, LOAN [address] [place] [address] Specialty Manager Digital Hematology/Oncology 06/11/23 Stock Saw Operator Relationship Specialty Start Date End Date Eden Cespedes MD [address] [place] [address] PCP - General Pediatrics 04/17/23 Stock Saw Operator Relationship Specialty Start Date End Date Eden Cespedes MD [address] [place] [address] PCP - General Pediatrics 04/17/23 Stock Saw Operator Relationship Specialty Start Date End Date Eden Petersen MD [address] [place] [address] PCP - General Internal Medicine 03/13/17 Prince Uribe MD [address] [place] [address] Hematology/Oncology 04/02/23 Annie Alba, LOAN [address] [place] [address] Specialty Manager Digital Hematology/Oncology 06/11/23 Stock Saw Operator Relationship Specialty Start Date End Date Eden Petersen MD [address] [place] [address] PCP - General Internal Medicine 03/13/17 Prince Uribe MD [address] [place] [address] Hematology/Oncology 04/02/23 Annie Alba, RN [address] [place] [address] Specialty Manager Digital Hematology/Oncology 06/11/23 Stock Saw Operator Relationship Specialty Start Date End Date Eden Cespedes MD [address] [place] [address] PCP - General Pediatrics 04/17/23 Stock Saw Operator Relationship Specialty Start Date End Date Eden Petersen MD [address] [place] [address] PCP - General Internal Medicine 03/13/17 Prince Uribe MD [address] [place] [address] Hematology/Oncology 04/02/23 Annie Alba, RN [address] [place] [address] Specialty Manager Digital Hematology/Oncology 06/11/23 Marisela Cabrera PA-C [address] [place] [address] Primer Press Operator Family Medicine 07/17/24 Judith Howell APRN.RETURNS SUPERVISOR [address] [place] [address] Primer Press Operator Internal Medicine 07/17/24 Dora Brower PA-C [address] [place] [address] Primer Press Operator Family Medicine 07/17/24 Stock Saw Operator Relationship Specialty Start Date End Date Eden Petersen MD [address] [place] [address] PCP - General Internal Medicine 03/13/17 Prince Uribe MD [address] [place] [address] Hematology/Oncology 04/02/23 Annie Alba RN [address] [address] Specialty Manager Digital Hematology/Oncology 06/11/23 Marisela Cabrera PA-C [address] [place] [address] Primer Press Operator Family Medicine 07/17/24 Judith Howell APRN.CNP [address] [place] [address] Primer Press Operator Internal Medicine 07/17/24 Dora Brower PA-C [address] [facility] [place] [address] Primer Press Operator Family Medicine 07/17/24 Stock Saw Operator Relationship Specialty Start Date End Date Eden Petersen MD [address] [facility] [place] [address] PCP - General Internal Medicine 03/13/17 Prince Uribe MD [address] [place] [address] Hematology/Oncology 04/02/23 Annie Alba, LOAN [address] [place] [address] Specialty Manager Digital Hematology/Oncology 06/11/23 Marisela Cabrera PA-C [address] [place] [address] Primer Press Operator Family Medicine 07/17/24 Judith Howell APRN.RETURNS SUPERVISOR [address] [place] [address] Primer Press Operator Internal Medicine 07/17/24 Dora Brower PA-C [address] [place] [address] Primer Press Operator Family [facility] 07/17/24 Stock Saw Operator Relationship Specialty Start Date End Date Eden Petersen MD [address] [place] [address] PCP - General Internal Medicine 03/13/17 Prince Uribe MD [address] [place] [address] Hematology/Oncology 04/02/23 Annie Alba, LOAN [address] [place] [address] Specialty Manager Digital Hematology/Oncology 06/11/23 Marisela Cabrera PA-C [address] [place] [address] Primer Press Operator Family Medicine 07/17/24 Judith Howell APRN.RETURNS SUPERVISOR [address] [place] [address] Primer Press Operator Internal Medicine 07/17/24 Dora Brower PA-C [address] [facility] [place] [address] Primer Press Operator Family Medicine 07/17/24 Stock Saw Operator Relationship Specialty Start Date End Date Eden Petersen MD [address] [place] [address] PCP - General Internal Medicine 03/13/17 Prince Uribe MD [address] [facility] [place] [address] Hematology/Oncology 04/02/23 Annie Alba, LOAN [address] [facility] [place] [address] Specialty Manager Digital Hematology/Oncology 06/11/23 Marisela Cabrera PA-C [address] [place] [address] Primer Press Operator Family Medicine 07/17/24 Judith Howell APRN.RETURNS SUPERVISOR [address] [facility] [place] [address] Primer Press Operator Internal Medicine 07/17/24 Dora Brower PA-C [address] [facility] [place] [address] Primer Press Operator Family Medicine 07/17/24 Stock Saw Operator Relationship Specialty Start Date End Date Eden Petersen MD [address] [place] [address] PCP - General Internal Medicine 03/13/17 Pricne Uribe MD [address] [place] [address] Hematology/Oncology 04/02/23 Annie Alba RN [address] [place] [address] Specialty Manager Digital Hematology/Oncology 06/11/23 Marisela Cabrera PA-C [address] [place] [address] Primer Press Operator Family Medicine 07/17/24 Judith Howell APRN.RETURNS SUPERVISOR [address] [place] [address] Primer Press Operator Internal Medicine 07/17/24 Dora Brower PA-C [address] [place] [address] Primer Press Operator Family Medicine 07/17/24 Stock Saw Operator Relationship Specialty Start Date End Date Eden Petersen MD [address] [place] [address] PCP - General Internal Medicine 03/13/17 Prince Uribe MD [address] [place] [address] Hematology/Oncology 04/02/23 Annie Alba, LOAN [address] [place] [address] Specialty Manager Digital Hematology/Oncology 06/11/23 Marisela Cabrera PA-C [address] [place] [address] Primer Press Operator Family Medicine 07/17/24 Judith Howell APRN.RETURNS SUPERVISOR [address] [facility] [place] [address] Primer Press Operator Internal Medicine 07/17/24 Dora Brower PA-C [address] [facility] [place] [address] [facility] Family Medicine 07/17/24 Stock Saw Operator Relationship Specialty Start Date End Date Eden Petersen MD [address] [facility] [place] [address] PCP - General Internal Medicine 03/13/17 Prince Uribe MD [address] [place] [address] Hematology/Oncology 04/02/23 Annie Alba, LOAN [address] [place] [address] Specialty Manager Digital Hematology/Oncology 06/11/23 Marisela Cabrera PA-C [address] [place] [address] Primer Press Operator Family Medicine 07/17/24 Judith Howell APRN.RETURNS SUPERVISOR [address] [facility] [place] [address] Primer Press Operator Internal Medicine 07/17/24 Dora Brower PA-C [address] [facility] [place] [address] Primer Press Operator Family Medicine 07/17/24 Stock Saw Operator Relationship Specialty Start Date End Date Eden Petersen MD [address] [place] [address] PCP - General Internal Medicine 03/13/17 Prince Uribe MD [address] [place] [address] Hematology/Oncology 04/02/23 Annie Alba RN [address] [place] [address] Specialty Manager Digital Hematology/Oncology 06/11/23 Marisela Cabrera PA-C [address] [place] [address] Primer Press Operator Family Medicine 07/17/24 Judith Howell APRN.RETURNS SUPERVISOR [address] [place] [address] Primer Press Operator Internal Medicine 07/17/24 Dora Brower PA-C [address] [place] [address] Primer Press Operator Family Medicine 07/17/24 Stock Saw Operator Relationship Specialty Start Date End Date Eden Petersen MD [address] [place] [address] PCP - General Internal Medicine 03/13/17 Prince Uribe MD [address] [place] [address] Hematology/Oncology 04/02/23 Annie Alba, LOAN [address] [place] [address] Specialty Manager Digital Hematology/Oncology 06/11/23 Mariseal Cabrera PA-C [address] [place] [address] Primer Press Operator Family Medicine 07/17/24 Judith Howell APRN.RETURNS SUPERVISOR [address] [facility] [place] [address] Primer Press Operator Internal Medicine 07/17/24 Dora Brower PA-C [address] [facility] [place] [address] Primer Press Operator Family Medicine 07/17/24 Stock Saw Operator Relationship Specialty Start Date End Date Eden Petersen MD [address] [facility] [place] [address] PCP - General Internal Medicine 03/13/17 Prince Uribe MD [address] [address] Hematology/Oncology 04/02/23 Annie Alba, LOAN [address] [place] [address] Specialty Manager Digital Hematology/Oncology 06/11/23 Marisela Cabrera PA-C [address] [place] [address] Primer Press Operator Family Medicine 07/17/24 Judith Howell APRN.RETURNS SUPERVISOR [address] [place] [address] Primer Press Operator Internal Medicine 07/17/24 Dora Brower PA-C [address] [place] [address] Primer Press Operator Family Medicine 07/17/24 Stock Saw Operator Relationship Specialty Start Date End Date Eden Petersen MD [address] [place] [address] PCP - General Internal Medicine 03/13/17 Prince Uribe MD [address] [place] [address] Hematology/Oncology 04/02/23 Annie Alba, LOAN [address] [place] [address] Specialty Manager Digital Hematology/Oncology 06/11/23 Marisela Cabrera PA-C [address] [place] [address] Primer Press Operator Family Medicine 07/17/24 10/30/24 Judith Howell APRN.CNP [address] [place] [address] Primer Press Operator Internal Medicine 07/17/24 Dora Brower PA-C [address] [place] [address] Primer Press Operator Family Medicine 07/17/24 10/30/24 Stock Saw Operator Relationship Specialty Start Date End Date Eden Petersen MD [address] [place] [address] PCP - General Internal Medicine 03/13/17 Prince Uribe MD [address] [place] [address] Hematology/Oncology 04/02/23 Annie Alba, LOAN [address] [place] [address] Specialty Manager Digital Hematology/Oncology 06/11/23 Judith Howell APRN.RETURNS SUPERVISOR [address] [facility] [place] [address] Primer Press Operator Internal Medicine 07/17/24 Stock Saw Operator Relationship Specialty Start Date End Date Eden Petersen MD [address] [facility] [place] [address] PCP - General Internal Medicine 03/13/17 Prince Uribe MD [address] [place] [address] Hematology/Oncology 04/02/23 Annie Alba RN [address] [place] [address] Specialty Manager Digital Hematology/Oncology 06/11/23 Marisela Cabrera PA-C [address] [place] [address] Primer Press Operator Family Medicine 07/17/24 10/30/24 Judith Howell APRN.RETURNS SUPERVISOR [address] [facility] [place] [address] Primer Press Operator Internal Medicine 07/17/24 Dora Brower PA-C [address] [facility] [place] [address] Primer Press Operator Family Medicine 07/17/24 10/30/24 Stock Saw Operator Relationship Specialty Start Date End Date Eden Petersen MD [address] [place] [address] PCP - General Internal Medicine 03/13/17 Prince Uribe MD [address] [place] [id number] Hematology/Oncology 04/02/23 Annie Alba, LOAN [address] [place], [place] [address] Specialty Manager Digital Hematology/Oncology 06/11/23 Judith Howell APRN.[facility] [address] [place] [address] Primer Press Operator Internal Medicine 07/17/24 INFORMATION SOURCE (unrecogn ized section and content) DATE CREATED AUTHOR 11/29/2022 [facility] DATE CREATED AUTHOR AUTHOR'S ORGANIZ ATION 06/19/2024 [facility] DATE CREATED AUTHOR AUTHOR'S ORGANIZ ATION 06/27/2024 [facility] DATE CREATED AUTHOR AUTHOR'S ORGANIZ ATION 09/16/2024 [facility] DATE CREATED AUTHOR AUTHOR'S ORGANIZ ATION 01/04/2025 [facility] Goals (unrecognized section and content) Goals may [...] BE BASED ON THE PRIMARY CLINICAL RECORDS. [employer] provides no warranty or guarantee of the accuracy or completeness of information in this document.
[2025-01-22] MEDS: MethylPREDNISolone 125 MG/2 ML Vial 60 MG IV ×4 (06:44→22:25)
[2025-01-22] MEDS: Levothyroxine 100 MCG Tablet PO (06:44)
[2025-01-22] MEDS: 0.9% Saline Lock 10 ML Syringe IV ×5 (06:45→22:26)
[2025-01-22] MEDS: Cholecalciferol (VIT D3) 25 MCG TABLET (1,000 UNITS) 50 MCG PO (09:15)
[2025-01-22] MEDS: hydroCHLOROthiazide 25 MG Tablet PO (09:16)
[2025-01-22] MEDS: amLODIPine 2.5 MG Tablet PO (09:16)
[2025-01-22] MEDS: buPROPion (XL) 300 MG TABLET.XL PO (09:17)
--- NOTE | 2025-01-22 14:21 | PN_ITS ---
Subjective Subjective Patient seen and examined. She was admitted with a complaint of angioedema of the tongue and the mouth. She is on lisinopril and that is thought to be the cause. She feels much better today and swelling has gone down significantly. In fact it is barely perceptible. She denied any shortness of breath or difficulty swallowing. Review of symptoms otherwise negative. Objective Data Objective Data Vital Signs: Vital Signs Temp Pulse Resp BP Pulse Ox O2 Del Method 97.7 F L 88 11 L 126/68 H 100 Room Air 01/22/25 12:00 01/22/25 14:00 01/22/25 14:00 01/22/25 14:00 01/22/25 14:00 01/22/25 14:00 Oxygen Delivery Method Room Air Weight: 175 lb 14.862 oz Body Mass Index (BMI) 29.2 Intake & Output: Intake and Output for Last 24 Hours 01/20/25 01/21/25 01/22/25 23:59 23:59 23:59 Intake Total 500 / 500 Balance 500 / 500 Lab / Micro Data 01/22/25 03:37 01/22/25 03:37 Labs: Laboratory Results - last 24 hr 01/22/25 03:37: WBC 11.2 H, RBC 4.24, Hgb 14.0, Hct 40.0, MCV 94.3, MCH 33.0 H, MCHC 35.0, RDW Std Deviation 45.6 H, RDW Coeff of Yanira 13.4, Plt Count 98 L, MPV 9.7, Immature Gran % (Auto) 0.400, Neut % (Auto) 52.6, Lymph % (Auto) 32.4, Elk % (Auto) 10.6 H, Eos % (Auto) 2.8, Baso % (Auto) 1.2 H, Absolute Neuts (auto) 5.9, Absolute Lymphs (auto) 3.62, Nucleated RBC % 0, Sodium 138, Potassium 3.8, Chloride 101, Carbon Dioxide 25.1, Anion Gap 12, BUN 21 H, Creatinine 0.93, Estim Creat Clear Calc 74.62, Est GFR (MDRD) Non-Af 74, BUN/Creatinine Ratio 22.5 H, Glucose 90, Calcium 9.8 Physical Exam Const alert, oriented x3 and no apparent distress General Appearance: cooperative HEENT normocephalic, head/scalp atraumatic, moist oral mucous membranes and oropharynx normal HEENT Narrative: Very minimal tongue swelling. No evidence of lip swelling. Eyes EOMs intact bilaterally Neck supple and no JVD Resp normal respiratory effort, normal air movement and clear to auscultation bilaterally Cardio regular rate, regular rhythm, S1 normal heart sound, S2 normal heart sound and no murmurs GI normal to inspection, nondistended, normoactive bowel sounds, soft to palpation, non-tender and non-distended Extremity General Extremity: no tenderness to palpation of joints or extremities Skin General Skin Exam: no breakdown Neuro CN's II-XII intact bilaterally, no focal motor deficits and no sensory deficits noted Motor Exam: general weakness Psych thought process normal and cooperative Appearance: appropriate Assessment & Plan Assessment/Plan (1) Angioedema: PLAN: Plan #Angioedema likely due to lisinopril * Angioedema has largely resolved. Patient has no swallowing or breathing issues. * Lisinopril discontinued and NSAID as an allergy in her medication list * On Benadryl and steroids #Hypothyroidism: On Synthroid #Hypertension: On hydrochlorothiazide. Lisinopril discontinued. #CLL: On Dasatinib #Depression and anxiety: On bupropion #Thrombocytopenia: Platelets are 98 today. This is chronic and likely due to CLL. Will hold Lovenox. DVT prophylaxis: SCDs. DC Lovenox on account of thrombocytopenia Disposition: * Patient was told she could be discharged today but she says she feels more comfortable leaving tomorrow. Likely discharge tomorrow. Charges/Coding Visit Charges Inpatient E&M: 28683 Subs Hosp L2
[2025-01-22] MEDS: DASATINIB PO (22:24)
[2025-01-23 03:00] VITALS: PULSE 76
[2025-01-23 04:47] VITALS: BMI 29.5
[2025-01-23 04:48] VITALS: BP 124/62; PULSE 79; RESP 15; TEMP 36.3; O2SAT 97
[2025-01-23] MEDS: DiphenhydrAMINE 50 MG/ML Syringe 25 MG IV (04:54)
[2025-01-23] MEDS: Levothyroxine 100 MCG Tablet PO (04:54)
[2025-01-23] MEDS: MethylPREDNISolone 125 MG/2 ML Vial 60 MG IV (04:54)
[2025-01-23] MEDS: 0.9% Saline Lock 10 ML Syringe IV (04:55)
[2025-01-23 05:07] LABS: Absolute Lymphocyte Count 0.43 X10^3/uL (0.83-4.51); Absolute Neutrophil Count 8.3 X10^3/uL (2.0-7.7); Basophil# 0.01 X10^3/uL; Basophil% 0.1 % (0-1); Hematocrit 35.1 % (37-47); Hemoglobin 12.6 g/dL (12.0-15.0); Lymphocyte # 0.43 X10^3/ul (0.83-4.51); Lymphocyte % 4.8 % (19-41); Mean Corp Hgb Conc 35.9 g/dL (32-36); Mean Corpuscular Hgb 33.4 pg (27.0-32.0); Mean Corpuscular Volume 93.1 fL (81-99); Mean Platelet Vol. 10.6 fl (6.2-12.0); Monocyte# 0.17 X10^3/uL; Monocyte% 1.9 % (0-10); NRBC Flagged by Analyzer 0 % (0-5); Neutrophil # 8.25 X10^3/uL (2.7-7.7); Neutrophil % 92.5 % (47-70); POSITIVE DIFFERENTIAL YES; Platelet Count 133 K/mm3 (150-450); RBC Distribution Width CV 13.1 % (11.6-14.6); RBC Distribution Width SD 44.4 fl (35.1-43.9); Red Blood Count 3.77 M/mm3 (4.2-5.4); White Blood Count 8.9 K/mm3 (4.4-11.0)
[2025-01-23 05:33] LABS: Phosphorus 2.6 mg/dL (2.7-4.5)
[2025-01-23 05:36] LABS: ALB/GLOB Ratio 1.8 RATIO (0.9-2.4); AST(SGOT) 24 U/L (<=31); Alanine Aminotransfer ALT/SGPT 22 U/L (<=34); Albumin, Serum 4.3 g/dL (3.5-5.0); Alkaline Phosphatase 47 U/L (35-104); Anion Gap 14 (5-15); BUN 15 mg/dL (4-19); BUN/Creat Ratio 17.5 RATIO (10-20); Calcium,Total 9.4 mg/dL (7.6-11.0); Carbon Dioxide 20.7 mmol/L (21.0-32.0); Chloride 103 mmol/L (98-108); Creatinine, Serum 0.86 mg/dL (0.70-1.20); EST Glomerular Filtration Rate 81 (>60); Estimated Creatinine Clearance 80.16 ml/min (50-250); Globulin 2.4 g/dL (2.2-4.2); Glucose 146 mg/dL (70-99); Potassium 3.7 mmol/L (3.3-5.1); Protein, Total 6.7 g/dL (5.9-8.4); Sodium Level 138 mmol/L (133-145); Total Bilirubin 0.27 mg/dL (0.00-1.30)
[2025-01-23 07:47] VITALS: BP 130/68; PULSE 72; RESP 18; TEMP 36.1; O2SAT 94
[2025-01-23] MEDS: hydroCHLOROthiazide 25 MG Tablet PO (07:50)
[2025-01-23] MEDS: Cholecalciferol (VIT D3) 25 MCG TABLET (1,000 UNITS) 50 MCG PO (07:50)
[2025-01-23] MEDS: buPROPion (XL) 300 MG TABLET.XL PO (07:51)
[2025-01-23] MEDS: amLODIPine 2.5 MG Tablet PO (07:51)
--- NOTE | 2025-01-23 08:03 | DCINST_ITS ---
Discharge Instructions Diet Discharge Diet: No restrictions DC O2, CPAP, BIPAP needs Home O2 Discharge instructions: No Dressing / Incision Discharge Activity: Return to Normal Activity Weight Bearing Status: Weight bearing as tolerated Dressing / Incision Call your doctor if you observe: Fever of 101 or Higher, Coldness, Increased Pain, Numbness or Tingling, Change in Color, Inability to urinate, Inability to have a bowel movement, Shortness of breath, Dizziness, Fainting spells, Swelling in the ankles, Chest pain, Prolonged hiccupping, Increased palpitations (irregular heartbeat) and Calf discomfort Follow Up Care When: IN 2 WEEKS Test Results: Test results from this visit will be discussed in further detail at your follow- up appointment, if applicable. Discharge Plan Admission Admit Date/Time: 01/22/25 04:45 Primary Reason for Your Visit: Angioedema swelling from lisinopril Attending Provider: Shoaib Sandoval Primary Care Provider: Edith Mcdonnell Consulting Providers: Jillian Shafer; Elke Ochoa Discharge Orders/Prescriptions Prescriptions: New hydrochlorothiazide 25 mg Tablet 25 mg PO DAILY 30 Days Qty: 30 1RF diphenhydramine HCl [[place]ark[place] Plus Allergy] 25 mg tablet 25 mg PO Q6H PRN (Reason: allergic reaction) Qty: 10 0RF famotidine 20 mg tablet 20 mg PO BID PRN (Reason: allergic symptoms) Qty: 10 0RF methylprednisolone [Medrol (Huang)] 4 mg tablets,dose pack 4 mg PO DAILY Qty: 21 0RF Rx Instructions: Take it as directed. Continued dasatinib 140 mg tablet 140 mg PO DAILY azelaic acid 15 % gel 1 applic topical BID PRN (Reason: rosacia) bupropion HCl 300 mg tablet extended release 24 hr 300 mg PO DAILY amlodipine 2.5 mg tablet 2.5 mg PO DAILY levothyroxine [Synthroid] 100 mcg tablet 100 mcg PO DAILY cholecalciferol (vitamin D3) [Vitamin D3] 50 mcg (2,000 unit) capsule 50 mcg PO DAILY Discontinued lisinopril-hydrochlorothiazide 20-12.5 mg tablet 1 tab PO DAILY Referrals / Follow Up: Edith Mcdonnell MD [Primary Care Provider] - In 1 Week (Discharge follow-up after angioedema/tongue swelling) Disposition Disposition (needs filled in before D/C Order can be placed): Home, Self Care
[2025-01-23 08:08] VITALS: O2SAT 98
[2025-01-23 08:09] VITALS: O2SAT 96; O2SAT 97
--- NOTE | 2025-01-23 08:09 | DS.PCM_ITS ---
Providers Date of Admission: 01/22/25 Date of Discharge: 01/23/25 Primary Care Physician: Dr. Edith Mcdonnell MD Reason For Visit: ANGIOEDEMA Diagnosis Discharge Diagnosis (1) Angioedema: Status: Acute Code(s): T78.3XXA - Angioneurotic edema, initial encounter Plan: 54-year-old female was admitted with tongue swelling that started after 7 to 10 hours prior to ED visit after she ate orange and prior to that she had lisinopril and felt tongue swelling, throat swelling with no pain or odynophagia or voice change. Patient has been on lisinopril for several years and has not refilled and she is unclear whether it was different pill but she started having symptoms after she took the first pill from that new refill. Angioedema likely due to lisinopril although not very clear * Angioedema has largely resolved. Patient has no swallowing or breathing issues. * Lisinopril discontinued and NSAID as an allergy in her medication list * On Benadryl and steroids and famotidine * 01/23: Patient is discharged home Medrol Dosepak along with as needed Benadryl and famotidine. Advised to follow with PCP in 1 week. * Not having symptoms of dyspnea, odynophagia/difficulty swallowing #Hypothyroidism: On Synthroid #Hypertension: On hydrochlorothiazide. Lisinopril discontinued. #CLL: On Dasatinib She follows [facility] oncologist Dr. Pemberton. She said she had hematological remission and the oncologist was trying for molecular remission. #Depression and anxiety: On bupropion #Thrombocytopenia: Platelets are 98 yesterday but improved to 133K. This is chronic and likely due to CLL. Will hold Lovenox. DVT prophylaxis: SCDs. DC Lovenox on account of thrombocytopenia Discharge medication reconciliation done. Discharge follow-up instructions completed. Discharge process discussed with the patient and all questions were answered to patient's satisfaction. Follow with PCP in 1 to 2 weeks Total time spent, exact 35 minutes on discharge meds reconciliation, examination, coordination of care with nurses and ancillary staff, review of imaging and blood test and discussion with the patient on follow-up instructions. Medications at Discharge Home Medications amlodipine 2.5 mg tablet 2.5 mg PO DAILY 08/26/24 azelaic acid 15 % topical gel 1 applic topical BID PRN rosacia 08/26/24 bupropion HCl 300 mg 24 hr tablet, extended release 300 mg PO DAILY 08/26/24 cholecalciferol (vitamin D3) 50 mcg (2,000 unit) capsule (Vitamin D3) 50 mcg PO DAILY 08/26/24 levothyroxine 100 mcg tablet (Synthroid) 100 mcg PO DAILY 08/26/24 dasatinib 140 mg tablet 140 mg PO DAILY 01/22/25 diphenhydramine HCl 25 mg tablet (Sparkle-[place] Plus Allergy) 25 mg PO Q6H PRN allergic reaction #10 tabs 01/23/25 famotidine 20 mg tablet 20 mg PO BID PRN allergic symptoms #10 tabs 01/23/25 hydrochlorothiazide 25 mg tablet 25 mg PO DAILY 30 days #30 tabs 01/23/25 methylprednisolone 4 mg tablets in a dose pack (Medrol (Huang)) 4 mg PO DAILY #21 tabs 01/23/25 Physical Exam Narrative Seen and examined with Patient denies any difficulty in swallowing and she had her food. Denies dyspnea or shortness of breath. Admitted for angioedema/tongue swelling that is resolved. Physical exam General: Alert, Oriented x3, Cooperative. Overweight 29.5 kg/m? HEENT: Atraumatic, PERRLA, EOMI, Normocephalic. Oral: Base of tongue could not be seen. Soft palate/Vuella could not be seen Neck: Supple, No JVD, Negative Carotid Bruits Chest wall/Lungs: Air entry diminished in bilateral lung bases. No crepitation/rhonchi Cardiovascular: Regular rate and rhythm, Normal S1,S2, No M/G/R Abdomen: Bowel Sounds Present, Soft, Non Tender, Non-Distended : No dysuria. No renal angle tenderness. No suprapubic tenderness. Extremities: No edema, Capillary Refill Less than 3 Seconds Skin: No rashes, No breakdown Musculoskeletal: No Tenderness to Palpation of Joints or Extremities Neurological: Cranial nerves II-XII grossly intact, DTR 2+/4. No acute focal neurological deficit. Psych/Mental Status: Normal Affect, Appropriate. Weight / BMI Weight Weight: 177 lb 4.026 oz Body Mass Index (BMI) 29.5 ABG / Lab / Microbiology Data 01/23/25 04:52 01/23/25 04:52 Laboratory: Laboratory Results - last 24 hr 01/23/25 04:52: WBC 8.9, RBC 3.77 L, Hgb 12.6, Hct 35.1 L, MCV 93.1, MCH 33.4 H, MCHC 35.9, RDW Std Deviation 44.4 H, RDW Coeff of Yanira 13.1, Plt Count 133 L, MPV 10.6, Immature Gran % (Auto) 0.700, Neut % (Auto) 92.5 H, Lymph % (Auto) 4.8 L, [place] % (Auto) 1.9, Eos % (Auto) 0.0, Baso % (Auto) 0.1, Absolute Neuts (auto) 8.3 H, Absolute Lymphs (auto) 0.43 L, Nucleated RBC % 0, Sodium 138, Potassium 3.7, Chloride 103, Carbon Dioxide 20.7 L, Anion Gap 14, BUN 15, Creatinine 0.86, Estim Creat Clear Calc 80.16, Est GFR (MDRD) Non-Af 81, BUN/Creatinine Ratio 17.5, Glucose 146 H, Calcium 9.4, Phosphorus 2.6 L, Magnesium 2.0, Total Bilirubin 0.27, AST 24, ALT 22, Alkaline Phosphatase 47, Total Protein 6.7, Albumin 4.3, Globulin 2.4, Albumin/Globulin Ratio 1.8 D/C Instructions Discharge Diet: No restrictions Weight Bearing Status: Weight bearing as tolerated Call your doctor if you observe: Fever of 101 or Higher, Coldness, Increased Pain, Numbness or Tingling, Change in Color, Inability to urinate, Inability to have a bowel movement, Shortness of breath, Dizziness, Fainting spells, Swelling in the ankles, Chest pain, Prolonged hiccupping, Increased palpitations (irregular heartbeat) and Calf discomfort DC O2, CPAP, BIPAP Needs Home O2 Discharge instructions: No When: IN 2 WEEKS Meaningful Use Info Meaningful Use Meaningful Use Diagnoses (Choose all that apply): None applicable Ischemic Stroke Statin Dosing Therapy Reference: STATIN DOSE THERAPY REFERENCE: * Patients > 75 years receive moderate or high dose statin therapy. * Patients 75 years or YOUNGER should receive HIGH intensity statin dose unless contraindicated. You will be required to document reason for non-treatment if statin daily dose does not meet guidelines. HIGH DOSE STATIN THERAPY DAILY Atorvastatin > than or = to 40 mg Rosuvastatin > than or = to 20 mg Amlodipine + Atorvastatin > than or = to 2.5/40 mg Ezetimibe + Simvastatin 10/80 mg Simvastatin 80mg Discharge Plan Admission Admit Date/Time: 01/22/25 04:45 Primary Reason for Your Visit: Angioedema swelling from lisinopril Attending Provider: Shoaib Sandoval Primary Care Provider: Edith Mcdonnell Consulting Providers: Jillian Shafer; Elke Ochoa Discharge Orders/Prescriptions Prescriptions: New hydrochlorothiazide 25 mg Tablet 25 mg PO DAILY 30 Days Qty: 30 1RF diphenhydramine HCl [Spark[place] Plus Allergy] 25 mg tablet 25 mg PO Q6H PRN (Reason: allergic reaction) Qty: 10 0RF famotidine 20 mg tablet 20 mg PO BID PRN (Reason: allergic symptoms) Qty: 10 0RF methylprednisolone [Medrol (Huang)] 4 mg tablets,dose pack 4 mg PO DAILY Qty: 21 0RF Rx Instructions: Take it as directed. Continued dasatinib 140 mg tablet 140 mg PO DAILY azelaic acid 15 % gel 1 applic topical BID PRN (Reason: rosacia) bupropion HCl 300 mg tablet extended release 24 hr 300 mg PO DAILY amlodipine 2.5 mg tablet 2.5 mg PO DAILY levothyroxine [Synthroid] 100 mcg tablet 100 mcg PO DAILY cholecalciferol (vitamin D3) [Vitamin D3] 50 mcg (2,000 unit) capsule 50 mcg PO DAILY Discontinued lisinopril-hydrochlorothiazide 20-12.5 mg tablet 1 tab PO DAILY Referrals / Follow Up: Edith Mcdonnell MD [Primary Care Provider] - In 1 Week (Discharge follow-up after angioedema/tongue swelling) Disposition Disposition (needs filled in before D/C Order can be placed): Home, Self Care Charges/Coding Visit Charges Inpatient E&M: 04928 Disch Hosp >30min
--- NOTE | 2025-01-23 09:36 | CASEMGMT ---
LOAN GUERRERO Assessment Face to Face with patient for initial transition planning/care coordination assessment. LOAN GUERRERO introduced self and role at [facility], pt voices understanding. Pt is A&Ox4 and is resting comfortably in bed and is calm. Care providers, pharmacy, and demographics verified. Admitting dx: Angioedema LACE Strata: 2 PCP: Edith Mcdonnell Specialists: José Miguel (Oncology) Preferred Pharmacy: [facility] Insurance: [employer] Prescription Benefit: Yes LNOK: Bobby (H) Living Arrangements: Pt lives with her and 3 children (Ages 16, 13, and 11) in a 2 story home ADLs/IADLs: Indep Transportation: Self, today DME: Denies HHC/SNF: Denies. Pt states that she has been to OP PT through [facility] in the past Pt?s goal: Home Plan: Home with pt's family today. Pt plans to follow up with her PCP as an OP to monitor the angioedema. Pt states that she already has a f/u appt scheduled. Pt denies further needs at this time and states that she plans to get her prescriptions after DC. Pt states that she feels safe returning home with her today and denies further questions or concerns at this time. Pt RN updated as the pt has an order for DC placed. Robinson Espinoza RN, CM
== END 2025-01-23 09:52 | disposition home or self-care (01) | DRG 916 ==
LOC: ED 04:36 → ICU 05:14
PROVIDERS: Admitting Provider Internal Medicine; Emergency Provider Emergency Medicine; PCP Internal Medicine; Visit Provider Internal Medicine
DX: T78.3XXA Angioneurotic edema, initial encounter (principal); C91.10 Chronic lymphocytic leukemia of B-cell type not having achieved remission; D69.59 Other secondary thrombocytopenia; E03.9 Hypothyroidism, unspecified; I10 Essential (primary) hypertension; F32.A Depression, unspecified; F41.9 Anxiety disorder, unspecified; X58.XXXA Exposure to other specified factors, initial encounter; Z79.620 Long term (current) use of immunosuppressive biologic; Z79.890 Hormone replacement therapy; Z79.899 Other long term (current) drug therapy
CPT/HCPCS: 80048; 80053; 83735; 84100; 85025; 92610; 94668; 94762; 99252; 99284; A4216; G0463